=== PATIENT | female | born 1960 | race Caucasian/White ===

== ENCOUNTER 2024-10-30 15:47 | Outpatient (OUT) | payer MEDICARE, BC, SELFPAY ==
--- NOTE | 2024-10-30 16:15 | PM.WCHP ---
Wound Care H&P: HPI History of Present Illness Narrative: The patient is a 64-year-old female with history of type 2 diabetes, last A1c is 6.8. She presents for routine toenail care. She denies symptoms of claudication or foot pain. Exam Narrative: Exam Narrative: Dermatologic: Silvery plaque on an erythematous base noted on the medial left foot and right heel. No ulcerations noted. Toenails 1 through 10 are thickened, mycotic, and dystrophic. They are tender to touch. No evidence of paronychia. Webspaces are clean and dry. Skin is thin and shiny. Neurologic: Achilles deep tendon reflexes are absent bilaterally, vibratory sensation is intact on the left but absent on the right. Protective sensation intact at 5/5 areas tested with the monofilament on each foot. Vascular: 1/4 dorsal pedis pulses bilaterally, 1/4 PT pulses bilaterally. Digital and lower leg hair is absent bilaterally. Lower extremity edema is noted bilaterally. Skin is diffusely dry. 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 Flatfoot deformity noted on the right with less valgus positioning. No pain with palpation either foot. Assessment and Plan Assessment and Plan (1) Tinea unguium: (2) Type 2 diabetes mellitus with diabetic neuropathy, unspecified: (3) Disorder of nail due to another disorder: (4) Diminished pulses in lower extremity: Plan Toenails 1 through 10 were sharply debrided with nail nippers without incident. The patient noted pain relief post procedure. Follow-up in 3 months. Acute Procedures Nail Procedure Nail Procedure Time out: Yes Nail procedure: other (Debridement toenails 1 through 10) Number of affected nails: 10 Location (toes): left and right Procedure successful: Yes Patient tolerated procedure: well and no complications Additional comments: Nail nippers used to sharply debride toenails 1 through 10 Podiatry Nail Debridement Class B Findings Advanced trophic changes as evidenced by any three of the following: decreased hair growth, nail changes (thickening) and skin texture (thin or shiny) Class C Findings Claudication: No Temperature changes: No Edema: Yes Nail debridement paresthesia (abnormal spontaneous sensations in the feet): Yes Burning: No Qualifies If: Qualifiers If:: A patient qualifies for nail debridement if they have: 1 class A finding (Q7) 2 class B findings (Q8) OR 1 class B & 2 class C findings in addition to a primary condition (Q9)
== END 2024-10-30 15:48 | disposition home or self-care (01) ==
LOC: WC 15:47
PROVIDERS: Visit Provider Physician Assistant
DX: B35.1 Tinea unguium (principal); E11.40 Type 2 diabetes mellitus with diabetic neuropathy, unspecified; L60.8 Other nail disorders; R09.89 Other specified symptoms and signs involving the circulatory and respiratory systems
CPT/HCPCS: 11721

== ENCOUNTER 2025-01-29 09:51 | Outpatient (OUT) | payer MEDICARE, BC, SELFPAY ==
--- OUTSIDE RECORDS SUMMARY | 2024-02-11 09:00 | XMS_ITS ---
Author Organization [facility] [place] Address [address] [place] [address] Care Team Providers Care Recreation Leader Name Role Phone None, Unknown or Primary Care Provider Unavailab Ellie Murphy Unavailable [phone] REASON FOR VISIT routine nail care Vital Signs Temperature 97.1 degrees Fahrenheit 02/11/20 24 Heart Rate 74 /min 02/11/2024 Height 65 in 02/11/2024 Weight 190 lbs 02/11/2024 BMI 31.61 kg/m2 02/11/2024 Oximetry 99 % 02/11/2024 Encounters Encounter Location Date Provider Diagnosis [facility] (PODIATRY) [address] [place] [address] [place] [address] 02/11/2024 Ellie Treadwell Diet-controlled type 2 diabetes mellitus E11.9 ; Pain in left foot M79.672 and Pain in right foot M79.671 Assessments Encounter Date Diagnosis (ICD Code) Assessment Notes Treatment Notes Treatment Clinical Notes Section Notes 02/11/2024 Diet-controlled type 2 diabetes mellitus (ICD-10 - E11.9) 02/11/2024 Pain in left foot (ICD-10 - M79.672) 02/11/2024 Pain in right foot (ICD-10 - M79.671) Plan Of Treatment No Information Progress Notes * Neelam STEPHENSON:1960 ( 63 yo F)Acc No.[id number]:02/11/2024 Nurse Visit Patient: Traci CISNEROS Provider: Sean Treadwell PA-C DOB:1960 A ge:63 Y S ex:Female Date:02/11/2024 Address:[address] [place] [address], [place] [id number] Pcp:Unknown or None Check In:12:49 PM ESTCheck O ut:01:06 PM EST Subjective: * Chief Complaints: * R outine nail care * HPI: G eneral: Patient seen today for routine nail care. Patient reports sore nails to right foot and left great toe. Gentle care taken to trimming all nails today. No signs of ingrown nails noted. All nails trimmed and filed to patient's satsifaction. No concerns for provider today. Patient did report she would be interested in getting her left great toe and right toenails removed due to pain when that are thickened and long. She would like to wait until she retires in April. Next appointment to be scheduled with Tatyana Treadwell PA-C to get any testing needed ordered prior to procedure. 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 Assessment: * Assessment: 1. D iet-controlled type 2 diabetes mellitus - E11.9 (Primary) 2 . P ain in left foot - M79.672 3 . P ain in right foot - M79.671 Plan: * Treatment: * Procedure Codes: 9 9211 OFFICEOUTPT VISIT, EST * * Sign off status: Completed Visit Status: C HK (Check Out) true * Provider: Sean Treadwell PA-C Date: 02/11/2024 Generated for Libby villegas/Trae/eTransmitting on: 01/29/2025 09:53 AM EDT
--- OUTSIDE RECORDS SUMMARY | 2024-04-17 09:00 | XMS_ITS ---
Author Organization The [facility] in [place] Address [address] [place] [address] Care Team Providers Care Tree Trimming Line Technician Name Role Phone None, Unknown or Primary Care Provider Unavailab mikki Beltranen Ellie Unavailable [phone] Allergies Allergen (clinical drug ingredient) Drug/Non Drug Allergy documented on EMR Reaction Allergy Type Onset Date Status metronidazole Flagyl dizziness Drug Allergy Act lemuel naproxen Naproxen hives Drug Allergy Active azithromycin Zithromax anaphylaxis Drug Allergy Ac tive Substance with sulfonamide structure and antibacterial mechanism of action (substance) Sulfa Antibiotics Unknown Drug Allergy Active Penicillin Unknown Drug Allergy Active REASON FOR VISIT Diabetic foot exam/ nail care with monisha Medications Medication SIG (Take, Route, Frequency, Duration) Notes Start Date End Date Status Omeprazole Active metFORMIN HCl 500 MG 1 tablet with a lori l Orally Once a day Active Lotrisone Active Levothyroxine-Liothyronine Active Atenolol Active Social History Tobacco Use: Social History Observation Description Date Details (start date - stop date) Unknown if ever smoked NA - NA Tobacco Use/Smoking Question Answer Notes Patient is a unknown if ever smoked Vital Signs Temperature 97.6 degrees Fahrenheit 04/17/20 Heart Rate 76 /min 04/17/2024 Respiratory Rate 18 /min 04/17/2024 Height 65 in 04/17/2024 Weight 190 lbs 04/17/2024 BMI 31.61 kg/m2 04/17/2024 Oximetry 99 % 04/17/2024 Encounters Encounter Location Date Provider Diagnosis [facility] (PODIATRY) [address] [place] [address] [place] [address] 04/17/2024 Ellie [place] Diet-controlled type 2 diabetes mellitus E11.9 ; Pain in left foot M79.672 and Pain in right foot M79.671 Assessments Encounter Date Diagnosis (ICD Code) Assessment Notes Treatment Notes Treatment Clinical Notes Section Notes 04/17/2024 Diet-controlle d type 2 diabetes mellitus (ICD-10 - E11.9) The patient is a 63-year-old female with history of type 2 diabetes who presents for routine diabetic foot check and nail care. She has no complaints of pain in her feet. No ulcerative or preulcerative lesions are noted. Toenails 1 through 10 were sharply debrided with nail nippers without incident. She is interested in having the right first and second toenails permanently removed in the future. Closer to the date of the procedure, we we will check ABIs beforehand. Follow-up in 3 months or as needed. 04/17/2024 Pain in left foot (ICD-10 - M79.672) 04/17/2024 Pain in right foot (ICD-10 - M79.671) Plan Of Treatment Treatment Notes Assessment Notes Diet-controlled type 2 diabetes mellitus The patient is a 63-year-old female with history of type 2 diabetes who presents for routine diabetic foot check and nail care. She has no complaints of pain in her feet. No ulcerative or preulcerative lesions are noted. Toenails 1 through 10 were sharply debrided with nail nippers without incident. She is interested in having the right first and second toenails permanently removed in the future. Closer to the date of the procedure, we we will check ABIs beforehand. Follow-up in 3 months or as needed. Next Appt Details Follow Up: 3 Months, Reason: Progress Notes * Jessy STEPHENSONOB:1960 ( 63 yo F)Acc No.[id number]:04/17/2024 Follow Up Patient: Traci CISNEROS Provider: Sean Treadwell PA-C :1960 A ge:63 Y S ex:Female Date:04/17/2024 Address:[address] [place] [address], [id number] Pcp:Unknown or None Check In:12:59 PM ESTCheck O ut:01:16 PM EST Subjective: * Chief Complaints: * D iabetic foot exam/ nail care with monisha * HPI: G eneral: Here for Diabetic foot care and nail care. A1C= 6.0 (January 2024). All nails thick and long.1-2-3-4-5 right and left feet. Bilateral great toenails thicker than other nails. * ROS: G eneral/Constitutional: Chills d enies. F ever d enies. W eight gain�denies. W eight loss d enies. S kin: Skin Ulcers d enies. S kin lesion(s) d enies. � C ardiovascular: Difficulty breathing on exertion d enies. L eg cramps�denies. E julia d enies. C hest pain d enies. R espiratory: Difficulty breathing d enies. D yspnea d enies.�Cough d enies. G astrointestinal: Diarrhea d enies. N ausea d enies. V omiting�denies. M usculoskeletal: Bone/Joint Symptoms d enies. C cuauhtemoc Pain d enies.�Leg cramps d enies. N eurologic: Numbness d enies. T ingling d enies . G ait abnormality d enies. � H ematology: Anemia D enies. E asy bruising d enies. � A ll Other Systems: Review of Systems (ROS) S ee HPI for details,All others negative except those mentioned in HPI. 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 * Social History: T obacco Use: T obacco Use/Smoking P atient is a u nknown if ever smoked * Medications: T akingAtenolol Levothyroxine-Liothyronine Lotrisone metFORMIN HCl 500 MG Tablet 1 tablet with a meal Orally Once a day Omeprazole Medication List reviewed and reconciled with the patientTaking Atenolol Taking Levothyroxine-Liothyronine Taking Lotrisone Taking metFORMIN HCl 500 MG Tablet 1 tablet with a meal Orally Once a day Taking Omeprazole Medication List reviewed and reconciled with the patient * Allergies: N aproxen: hives - AllergyZithromax: anaphylaxis - AllergySulfa Antibiotics: AllergyPenicillin: AllergyFlagyl: dizziness - Allergyno[Allergies Verified] Objective: * Vitals: W t:190lbs, Ht: 65 in, Temp:97.6F, HR:76/min, RR:18/min, BMI:31.61Index, Pain scale:01-10, Oxygen sat %:99%, Ht-cm: 165.1 cm, Wt-k.18 kg. * Examination: P odiatry Examination: SKIN: s kin intact, n o sign of infection right hallux toenail is dystrophic and chronically ingrown. MUSCULOSKELETAL: I n stance, calcaneal valgus is noted,� Positive too many toes sign. Static exam demonstrates: No pain on palpation. Strength exam shows weakness on inversion. Subfibular impingement present. Forefoot varus and hypermobility of the 1st ray.� Ankle joint dorsiflexion with the knee extended is zero degrees. NEUROLOGICAL: L ight touch sensation is intact in allnerve distributions, N egative Tinel sign. VASCULAR: P alpable pedal pulses bilaterally, No swelling, No calf pain on squeeze. Assessment: * Assessment: 1. D iet-controlled type 2 diabetes mellitus - E11.9 (Primary) 2 . P ain in left foot - M79.672 3 . P ain in right foot - M79.671 Plan: * Treatment: * Procedure Codes: * Follow Up: 3 Months * * Sign off status: Completed Visit Status: C HK (Check Out) true * Provider: Sean Treadwell PA-C Date: 1 Generated for Libby villegas/Trae/Jadeitting on: 0 01/29/2025 09:54 AM EDT History and Physical Notes * HPI (History of Present Illness) Category Sub-Category Detail Notes Category Not es General Here for Diabet ic foot care and nail care. A1C= 6.0 (January 2024). All nails thick and long.1-2-3-4-5 right and left feet. Bilateral great toenails thicker than other nails Examination Category Sub-Category Detail Notes Category Not es Podiatry Examination SKIN: skin intact , no sign of infection right hallux toenail is dystrophic and chronically ingrown MUSCULOSKELETAL: In stance, calcaneal valgus is noted, Positive too many toes sign. Static exam demonstrates: No pain on palpation. Strength exam shows weakness on inversion. Subfibular impingement present. Forefoot varus and hypermobility of the 1st ray. Ankle joint dorsiflexion with the knee extended is zero degrees NEUROLOGICAL: Light touch sensation is intact in all nerve distributions, Negative Tinel sign VASCULAR: Palpable pedal pulse s bilaterally, No swelling, No calf pain on squeeze
--- OUTSIDE RECORDS SUMMARY | 2024-08-25 09:40 | XMS_ITS ---
Author Organization [facility] in [place] Address [address] [place] [address] Care Team Providers Care Admissions Specialist Name Role Phone None, Unknown or Primary Care Provider Unavailab Ellie Murphy Unavailable [phone] REASON FOR VISIT routine nail care Vital Signs Temperature 97.1 degrees Fahrenheit 08/25/19 25 Heart Rate 70 /min 08/25/2024 Height 65 in 08/25/2024 Oximetry 99 % 08/25/2024 Encounters Encounter Location Date Provider Diagnosis [facility] (PODIATRY) [address] [place] [address] [place] [address] 08/25/2024 Ellie Treadwell Diet-controlled type 2 diabetes mellitus E11.9 ; Abnormal peripheral pulse R09.89 ; Pain in left foot M79.672 and Pain in right foot M79.671 Assessments Encounter Date Diagnosis (ICD Code) Assessment Notes Treatment Notes Treatment Clinical Notes Section Notes 08/25/2024 Diet-controlled type 2 diabetes mellitus (ICD-10 - E11.9) 08/25/2024 Abnormal peripheral pulse (ICD-10 - R09.89) 08/25/2024 Pain in left foot (ICD-10 - M79.672) 08/25/2024 Pain in right foot (ICD-10 - M79.671) Plan Of Treatment Next Appt Details Follow Up: 3 Months, Reason: Progress Notes * Jessy STEPHENSONOB:1960 ( 64 yo F)Acc No.[id number]:08/25/2024 Nurse Visit Patient: Traci CISNEROS Provider: Sean Treadwell PA-C :1960 A ge:64 Y S ex:Female Date:08/25/2024 Address:[address] [place] [address], [id number] Pcp:Unknown or None Check In:02:13 PM ESTCheck O ut:02:13 PM EST Subjective: * Chief Complaints: * R outine nail care * HPI: G eneral: Here for Diabetic foot care and nail care. States she has been diagnosed with psorasis and it is noted on her left lower leg and foot today. She is using cream from her pneumatic tube repairer to treat but she is not sure what the name of it is. She requests all nails be trimmed as low as possible. Nails 1-10 are elongated, thickened today. Nail border to her right 3rd and 4th toes are sore but no signs of ingrown nails or infection. Nails trimmed back and pain relief achieved. All remaining nails trimmed and filed without incident. * Active Problem List M21.072 Acquired valgus [...] stic Procedure: * Medications: Objective: * Vitals: H t: 65 in, Temp:97.1F, HR:70/min, Pain scale:11-10, Oxygen sat %:99%, Ht-cm: 165.1 cm. Assessment: * Assessment: 1. D iet-controlled type 2 diabetes mellitus - E11.9 (Primary) 2 . A bnormal peripheral pulse - R09.89 3 . P ain in left foot - M79.672 4 .�Pain in right foot - M79.671 Plan: * Treatment: * Procedure Codes: 1 1721 DEBRIDE.NAILS;SIX OR MORE, Modifiers: Q8 * Follow Up: 3 Months * * Sign off status: Completed Visit Status: C HK (Check Out) true * Provider: Sean Treadwell PA-C Date: 0 08/25/2024 Generated for Libby villegas/Trae/eTransmitting on: 0 01/29/2025 09:54 AM EDT History and Physical Notes * HPI (History of Present Illness) Category Sub-Category Detail Notes Category Not es General Here for Diabet ic foot care and nail care. States she has been diagnosed with psorasis and it is noted on her left lower leg and foot today. She is using cream from her pneumatic tube repairer to treat but she is not sure what the name of it is. She requests all nails be trimmed as low as possible. Nails 1-10 are elongated, thickened today. Nail border to her right 3rd and 4th toes are sore but no signs of ingrown nails or infection. Nails trimmed back and pain relief achieved. All remaining nails trimmed and filed without incident.
--- OUTSIDE RECORDS SUMMARY | 2025-01-29 09:54 | XMS_ITS | Clinical Summary ---
Author Organization [facility] Address [address] [place] [address] Phone Care Team Providers Care Retail Merchandising Coordinator Name Role Phone Jignesh Trinidad DO Primary Care Provider [phone] Social History Tobacco Use Types Packs/Day Years Used Date Smoking Tobacco: Never Assessed Comments Unknown Sex and Gender Information Value Date Recorded Sex Assigned at Not on file Legal Sex Female 8:58 PM EST Gender Identity Not on file Sexual Orientation Not on file Plan of Treatment Not on file Care Teams Retail Merchandising Coordinator Relationship Specialty Start Date End Date Jignesh Trinidad DO PCP - General 10/02/14
--- OUTSIDE RECORDS SUMMARY | 2025-01-29 09:54 | XMS_ITS | Patient Health Record ---
Author Organization [facility] in [place] Address [address] [place] [address] Care Team Providers Care Pari Mutuel Ticket Seller Name Role Phone None, Unknown or Primary Care Provider Unavailab mikki Ellie Treadwell Unavailable [phone] Allergies Allergen (clinical drug ingredient) Drug/Non Drug Allergy documented on EMR Reaction Allergy Type Onset Date Status metronidazole Flagyl dizziness Drug Allergy Act lemuel naproxen Naproxen hives Drug Allergy Active azithromycin Zithromax anaphylaxis Drug Allergy Ac tive Substance with sulfonamide structure and antibacterial mechanism of action (substance) Sulfa Antibiotics Unknown Drug Allergy Active Penicillin Unknown Drug Allergy Active Reason For Referral No Information Medications Medication SIG (Take, Route, Frequency, Duration) [...] Patient is a unknown if ever smoked Problems Problem Type SNOMED Code ICD Code Onset Dates Problem Status W/U Status Risk Notes Problem 986048950389402 Diet-controlled type 2 diabetes mellitus (E11.9) Active confirmed Problem 7417787872040967 Posterior tibial tendon dysfunction (PTTD) of left lower extremity (M76.822) Active confirmed Problem 1078807279992891 Posterior tibial tendon dysfunction (PTTD) of right lower extremity (M76.821) Active confirmed Problem 120421344324533 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) Active confirmed Vital Signs Heart Rate 70 /min 08/25/2024 Temperature 97.1 degrees Fahrenheit 08/25/2024 Respiratory Rate 18 /min 04/17/2024 Oximetry 99 % 08/25/2024 Height 65 in 08/25/2024 Weight 190 lbs 04/17/2024 BMI 31.61 kg/m2 04/17/2024 Encounters Encounter Location Date Provider Diagnosis [facility] (PODIATRY) [address] [place] [address] [place] [address] 04/17/2024 Ellie Treadwell Diet-controlled type 2 diabetes mellitus E11.9 ; Pain in left foot M79.672 and Pain in right foot M79.671 [facility] (PODIATRY) [address] [place] [address] [place] [address] 08/25/2024 Ellie Treadwell Diet-controlled type 2 diabetes mellitus E11.9 ; Abnormal peripheral pulse R09.89 ; Pain in left foot M79.672 and Pain in right foot M79.671 [facility] (PODIATRY) [address] [place] [address] [place] [address] 02/11/2024 Ellie Treadwell Diet-controlled type 2 diabetes mellitus E11.9 ; Pain in left foot M79.672 and Pain in right foot M79.671 Assessments Encounter Date Diagnosis (ICD Code) Assessment Notes Treatment Notes Treatment Clinical Notes Section Notes 02/11/2024 Diet-controlled type 2 diabetes mellitus (ICD-10 - E11.9) 02/11/2024 Pain in left foot (ICD-10 - M79.672) 08/25/2024 Diet-controlled type 2 diabetes mellitus (ICD-10 - E11.9) 08/25/2024 Abnormal peripheral pulse (ICD-10 - R09.89) 04/17/2024 Diet-controlled type 2 diabetes mellitus (ICD-10 - [...] Pain in right foot (ICD-10 - M79.671) 08/25/2024 Pain in left foot (ICD-10 - M79.672) 02/11/2024 Pain in right foot (ICD-10 - M79.671) 08/25/2024 Pain in right foot (ICD-10 - M79.671) Plan Of Treatment No Information Insurance Providers Payer Name Payer Address Payer Phone Subscriber Number Group Number Insured Name Patient Relationship to Insured Coverage Start Date Coverage End Date [employer] ACCESS PPO PLUS LOCAL PLAN [address] [place] [address] [id number] Traci Weiner Self - patient is the insured 5 [place] [address] [id number] Zhanna Weinery Self - patient is the insured 5 BCBS OUT OF STATE [address] [place] [address] [id number] Zhanna Weinery Self - patient is the insured Medical (General) History Medical History History ICD Code Posterior tibial tendon dysfunction, lef t M76.822 Arthritis of ankle, right M19.071 Valgus deformity of foot, right M21.071 Disorder of ligament of left foot M24.27 5 Acquired valgus deformity of left ankle M21.072 Contracture, right ankle M24.571 Diabetes mellitus E11.9 Surgical History Surgery Date(Month/Year) wont disclose Hospitalization History Reason Date(Month/Year) wont disclose
--- NOTE | 2025-01-29 10:41 | P.WCHP_ITS ---
Wound Care H&P: HPI History of Present Illness Narrative: Traci is a 64-year-old female with history of type 2 diabetes who presents for routine nail care. Her last hemoglobin A1c was 5.8. She has no complaints in regards to her feet at this time. Exam Narrative: Exam Narrative: Dermatologic: No ulcerations noted. Toenails 1 through 10 are thickened, mycotic, and dystrophic. They are tender to touch. No evidence of paronychia. Webspaces are clean and dry. Skin is thin, shiny, and atrophic. Neurologic: Achilles deep tendon reflexes are absent bilaterally, vibratory sensation is intact on the left but absent on the right. Protective sensation intact at 5/5 areas tested with the monofilament on each foot. Vascular: 1/4 dorsal pedis pulses bilaterally, 1/4 PT pulses bilaterally. Di gital and lower leg hair is absent bilaterally. Lower extremity edema is noted bilaterally. Skin is diffusely dry. 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 Flatfoot deformity noted on the right with less valgus positioning. No pain with palpation either foot. Assessment and Plan Assessment and Plan (1) Diminished pulses in lower extremity: (2) Disorder of nail due to another disorder: (3) Type 2 diabetes mellitus with diabetic neuropathy, unspecified: (4) Tinea unguium: Plan Routine nail care performed. Follow-up in 3 months. Acute Procedures Podiatry Nail Debridement Class B Findings Advanced trophic changes as evidenced by any three of the following: decreased hair growth, nail changes (thickening) and skin texture (thin or shiny) Class C Findings Claudication: No Temperature changes: No Edema: Yes Nail debridement paresthesia (abnormal spontaneous sensations in the feet): No Burning: No Qualifies If: Qualifiers If:: A patient qualifies for nail debridement if they have: 1 class A finding (Q7) 2 class B findings (Q8) OR 1 class B & 2 class C findings in addition to a primary condition (Q9) Nail Procedure Nail Procedure Time out: Yes Nail procedure: other (Toenail debridement) Number of affected nails: 10 Location (toes): left and right Procedure successful: Yes Patient tolerated procedure: well Additional comments: Toenails 1 through 10 were sharply debrided with nail nippers. There was a hangnail removed from the left medial nail fold that bled postprocedure. Band- Aid was applied.
== END 2025-01-29 09:52 | disposition home or self-care (01) ==
LOC: WC 09:52
PROVIDERS: Visit Provider Physician Assistant
DX: I70.203 Unspecified atherosclerosis of native arteries of extremities, bilateral legs (principal); L60.8 Other nail disorders; E11.40 Type 2 diabetes mellitus with diabetic neuropathy, unspecified; B35.1 Tinea unguium
CPT/HCPCS: 11721

== ENCOUNTER 2025-05-21 12:58 | Outpatient (OUT) | payer MEDICARE, SELFPAY ==
--- OUTSIDE RECORDS SUMMARY | 2025-05-18 10:30 | XMS_ITS | Encounter Summary ---
Author Organization [facility] Address [address] [place] [id number] Care Team Providers Care [employer] Name Role Phone Dar Vasquez DO Primary Care Provider + Source Comments In the event this information is protected by the Federal Confidentiality of Alcohol and Drug AbusePatient Records regulations: The Federal rules restrict any use of the information to criminally investigate or prosecute any alcohol or drug abuse patient.[facility] Reason for Visit * ReasonCommentsCrohns Encounter Details DateTypeDepartmentCare Team (Latest Contact Info)Yjkcrsjevya79/03/2025 10:30 AM [facility] [address] [id number] Essence Vera, michael Crohn's disease of small intestine with complication (HCC) (Primary Dx) Social History Tobacco UseTypesPacks/DayYears UsedDateSmoking Tobacco: NeverSmokeless Tobacco: NeverAlcohol UseStandard Drinks/WeekCommentsYes0 (1 standard drink = 0.6 oz pure alcohol)ocassionallyPHQ-2AnswerDate RecordedPHQ-2 cuolh239rea Deprivation IndexAnswerDate RecordedNational Score (1-100), lower number is lower ceer422309/05/2024State Score (1-10), lower number is lower nwqg32309/05/2024 Data from: https://www.neighborhoodatlas.[facility].edu/. Last address used for yshdlwscl[address] [place] [address] CommentsNoSex and Gender InformationValueDate RecordedSex Assigned at GaodpTqjtbx47/09/2022 7:42 PM EST Legal CuuFpgume48/02/2012 9:13 AM ESTGender LnybrnalBjtztu26/09/2022 7:42 PM EST Sexual OrientationNot on filedocumented as of this encounter Functional Status * Are you deaf or do you have serious difficulty hearing?AnswerDate of KnqkcckgtkFhznlbJm22/13/2022 4:20 PM Sayra Zuniga RN * Are you blind or do you have serious difficulty seeing, even when wearing glasses?AnswerDate of HwtzokxszlNqsxufFb49/13/2022 4:20 PM Sayra Zuniga RN * Do you have serious difficulty walking or climbing stairs?AnswerDate of ArwrmxmwibJewxkdPc46/13/2022 4:20 PM Sayra Zuniga RN * Do you have difficulty dressing or bathing?AnswerDate of AssessmentAuthorNo 12/26/2021 4:20 PM Sayra Zuniga RN * Because of a physical, mental, or emotional condition, do you have difficulty doing errands alone such as visiting a doctor's office or shopping?AnswerDate of HattlqypjuJrzskaVf04/13/2022 4:20 PM Sayra Zuniga RN documented as of this encounter Mental Status * Because of a physical, mental, or emotional condition, do you have serious difficulty concentrating, remembering, or making decisions?AnswerEntry Date SrjrqeBs90/13/2022 4:20 PM Sayra Zuniga RN documented in this encounter Progress Notes * Essence Vera, [facility] - 05/18/2025 10:30 AM EST IBD Medication Consult [facility] [place] Patient consents to pharmacy consult agreement. The initial consult was conducted virtually with the patient where the consult agreement was explained. The patient may decline or cancel the agreement at any time. After consideration, the patient consented to the pharmacy consult agreement and agreed to allow medications be collaboratively managed by a pharmacist. Patient Name: Traci Weiner IBD Provider: Dr. Paiz Diagnosis: UC with Crohn's-like disease of pouch Insurance: [employer], [employer] Reason for consult: efficacy, safety, coordination, health maintenance review, and reconciliation Met with Traci today. She reports: - Joint pain (most pronounced in knees) since starting Skyrizi for which she takes acetaminophen 1-2 doses of 500mg ~3x/week. After first dose of Skyrizi, I could hardly walk . But I think my body is getting used to it . I would like to continue due to joint pain already improving and helping for psoriasis. Notes psoriasis has significantly improved since starting Skyrizi.. - In terms of GI symptoms, reports while seeing improvement in symptoms since starting Skyrizi, continues to have increased symptoms on off weeks of cipro (alternates 2-weeks on, 2-weeks off). Juststarted current 2-week course yesterday. - Stopped Otezla after appt with Tomasa ~2-weeks ago and psoriasis has remained well-controlled. Missed recent Derm appt so has not yet had f/u, but r/s for 06/2025 - Delayed infusion due 05/08/2025 until after change of insurance to Medicare Advantage took effecton 05/16/2025. Is r/s for 05/22/2025. Med rec completed today, see below for details on discrepancies. X = taking as prescribed/listed. Medication Directions Comments apremilast (OTEZLA) 30 mg tablet Apremilast (Otezla) 30 mg tablet Active 30 MG PO .once daily June 09, 2024 1:00am Stopped ~05/01 atenolol (TENORMIN) 25 mg tablet Take 1 tablet by mouth once daily. X blood sugar diagnostic (Access ClosureUCH VERIO TEST STRIPS) test strip Use as instructed three times daily ciprofloxacin HCl (CIPRO) 500 mg tablet TAKE 1 TABLET BY MOUTH TWO TIMES A DAY FOR TWO WEEKS THEN TWO WEEK OFF Restarted 05/17 for current 2-week course diphenoxylate-atropine (LOMOTIL) 2.5-0.025 mg per tablet TAKE 1 TABLET BY MOUTH 3 OR 4 TIMES DAILY NEEDED Takes 6/day ergocalciferol 50,000 unit capsule (VITAMIN D2, DRISDOL) TAKE 1 CAPSULE BY MOUTH ONE TIME A WEEK. X - takes on Mondays ferrous sulfate 325 mg (65 mg iron) tablet Take 325 mg by mouth five times a week. Takes daily FLUoxetine (PROZAC) 20 mg capsule Take 20 mg by mouth once daily. X folic acid 1 mg tablet TAKE 1 TABLET BY MOUTH EVERY DAY X hydrOXYchloroQUINE (PLAQUENIL) 200 mg tablet Take 200 mg by mouth. Only as needed for oral lichenplanus; has needed a couple doses lately insulin lispro (HUMALOG KWIKPEN INSULIN) 100 unit/mL Inject 0-10 units three times daily following the sliding scale: If Blood Glucose (mg/dL) is <110 Give 0 units 111-150 Give 0 units 151-200 Give 2 unit 201-250 Give 4 units 251-300 Give 6 units 301-350 Give 8 units 351-400 Give 10 units >400 give 10units and notify provider. Checks BG throughout the day; only takes insulin as needed--hardly ever needs Insulin [place], Disposable, (BD ULTRA-FINE MIN PEN NEEDLE) 32 gauge x 5/32 1 Each three times daily. Lactobacillus acidophilus (PROBIOTIC ORAL) Take by mouth. X lancets (ONETOUCH DELICA PLUS LANCET) 33 gauge 1 Each three times daily. levothyroxine (SYNTHROID) 150 mcg tablet Take 1 tablet by mouth once daily. X magnesium oxide (MAG-OX) 400 mg (241.3 mg magnesium) tablet Take 1 tablet by mouth every afternoon. X mecobalamin, vitamin B12, 1,000 mcg chew Take by mouth once daily. X metFORMIN ER (GLUCOPHAGE XR) 500 mg 24 hr tablet TAKE 1 TABLET BY MOUTH EVERY DAY IN THE EVENING WITH MEAL X Omeprazole 40 mg capsule Take 40 mg by mouth once daily. X - reports GERD if doesn't take rosuvastatin (CRESTOR) 5 mg tablet Take 1 tablet by mouth once daily. X spironolactone (ALDACTONE) 25 mg tablet Take 1 tablet by mouth every afternoon. X Syringe with Needle, Disp, 3 mL 25 gauge x 1 1 Syringe as directed. tapinarof (VTAMA) 1 % cream Tapinarof (Vtama) 1 % cream Active APPLIC TOPICAL November 03, 2024 12:00am Was for psoriasis, hasn't needed to use being skyrizi better controlling Current Pouch Symptoms Average number of bowel movements in 24 hour period: increased to 8; just started antibiotic again yesterday--symptoms often worsen when off weeks from cipro Stool Frequency: at baseline since pouch surgery, but a little more watery during off cipro weeks Rectal Bleeding: None Fecal Urgency: None Abdominal Cramps: sometimes, but that is normal Fever (>100 F) in last 24 hours: No Number of nocturnal bowel movements: the other day, but hasn't otherwise (had chocolate dessert before bed) Incontinence or Fecal Accidents in last week: No Anti-Diarrheal use: lomotil 6/day Fecal Seepage: yes sometimes, mostly at night Use of Pads/Adult Diapers: Yes SOCIAL HISTORY Tobacco use: no EtOH: No PERTINENT PMH FOR BIOLOGICS/SMALL MOLECULES Personal history of: VTE: No Cardiac: No Renal dysfunction: No Hepatic dysfunction: No Autoimmune/Demyelinating disease (MS, GBS): Yes, psoriasis, RA, lichen sclerosus Malignancy: Yes, 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, now s/p surgery a few years ago PAST MEDICAL HISTORY Diagnosis Date Arthritis Chronic pain of left knee 12/09/2021 Diabetes mellitus (HCC) History of transfusion HTN (hypertension) Hypothyroidism Lichen sclerosus Rheumatoid arthritis (HCC) UC (ulcerative colitis) (HCC) PAST SURGICAL HISTORY Procedure Laterality Date ABDOMINAL SURGERY HX CHG DELIVERY PAST SURGICAL HISTORY OF 1994 2 stage j-pouch PAST SURGICAL HISTORY OF abdominal hernia x2 PICC LINE INSERT/CONSULT 12/23/2021 Current Outpatient Medications Medication Sig Dispense Refill ciprofloxacin HCl (CIPRO) 500 mg tablet TAKE 1 TABLET BY MOUTH TWO TIMES A DAY FOR TWO WEEKS THEN TWO WEEK OFF 84 tablet 0 diphenoxylate-atropine (LOMOTIL) 2.5-0.025 mg per tablet TAKE 1 TABLET BY MOUTH 3 OR 4 TIMES DAILY NEEDED 120 tablet 5 hydrOXYchloroQUINE (PLAQUENIL) 200 mg tablet Take 200 mg by mouth. tapinarof (VTAMA) 1 % cream Tapinarof (Vtama) 1 % cream Active APPLIC TOPICAL November 03, 2024 12:00am ergocalciferol 50,000 unit capsule (VITAMIN D2, DRISDOL) TAKE 1 CAPSULE BY MOUTH ONE TIME A WEEK. 12 capsule 1 apremilast (OTEZLA) 30 mg tablet Apremilast (Otezla) 30 mg tablet Active 30 MG PO .once daily June 09, 2024 1:00am rosuvastatin (CRESTOR) 5 mg tablet Take 1 tablet by mouth once daily. folic acid 1 mg tablet TAKE 1 TABLET BY MOUTH EVERY DAY 90 tablet 3 atenolol (TENORMIN) 25 mg tablet Take 1 tablet by mouth once daily. 30 tablet 0 spironolactone (ALDACTONE) 25 mg tablet Take 1 tablet by mouth every afternoon. magnesium oxide (MAG-OX) 400 mg (241.3 mg magnesium) tablet Take 1 tablet by mouth every afternoon. ferrous sulfate 325 mg (65 mg iron) tablet Take 325 mg by mouth five times a week. mecobalamin, vitamin B12, 1,000 mcg chew Take by mouth once daily. Syringe with Needle, Disp, 3 mL 25 gauge x 1 1 Syringe as directed. 16 Each 0 metFORMIN ER (GLUCOPHAGE XR) 500 mg 24 hr tablet TAKE 1 TABLET BY MOUTH EVERY DAY IN THE EVENING WITH MEAL insulin lispro (HUMALOG KWIKPEN INSULIN) 100 unit/mL Inject 0-10 units three times daily following the sliding scale: If Blood Glucose (mg/dL) is <110 Give 0 units 111-150 Give 0 units 151-200 Give 2 unit 201-250 Give 4 units 251-300 Give 6 units 301-350 Give 8 units 351-400 Give 10 units >400 give 10units and notify provider. 5 Pen 2 Insulin [place], Disposable, (BD ULTRA-FINE MIN PEN NEEDLE) 32 gauge x 5/32 1 Each three times daily. 100 Each 2 blood sugar diagnostic (ONETOUCH VERIO TEST STRIPS) test strip Use as instructed three times daily 100 Strip 2 lancets (Paquin Healthcare CompaniesTOUCH DELICA PLUS LANCET) 33 gauge 1 Each three times daily. 100 Each 2 Lactobacillus acidophilus (PROBIOTIC ORAL) Take by mouth. levothyroxine (SYNTHROID) 150 mcg tablet Take 1 tablet by mouth once daily. 30 tablet 0 Omeprazole 40 mg capsule Take 40 mg by mouth once daily. FLUoxetine (PROZAC) 20 mg capsule Take 20 mg by mouth once daily. No current facility-administered medications for this visit. ALLERGIES Allergen Reactions Azithromycin Unknown Metronidazole Itching Itching and redness Naproxen Penicillins Sulfa (Sulfonamide * Unknown Vancomycin Rash FAMILY HISTORY FAMILY HISTORY Problem Relation Age of Onset Anesthesia Problems No Family History PERTINENT VITALS AND LABS Weight/BMI: Wt: 96.2 kg (212 lb 1.3 oz) BMI: 35.29 kg/(m^2) TB: Lab Results Component Value Date TBGNIL 0.03 03/30/2021 TBGINT 03/30/2021 No evidence of current or previous infection with Mycobacterium tuberculosis. TBG1AG 0.00 03/30/2021 TBG2AG 0.01 03/30/2021 TBGRES Negative 03/30/2021 TBMITN >10 03/30/2021 TPMT: Lab Results Component Value Date TPMTACT 23.3 (L) 10/14/2020 Calprotectin stool/inflammation: Lab Results Component Value Date CALPTN 332.9 (H) 08/11/2022 CALPROTECTIN, FECAL QUANTITATIVE Date Value Ref Range Status 10/11/2023 188 (H) <50 ug/g Final CRP Date Value Ref Range Status 09/18/2024 0.6 <0.9 mg/dL Final CBC: WBC (k/uL) Date Value 03/06/2025 7.69 Hemoglobin (g/dL) Date Value 03/06/2025 12.9 Hematocrit (%) Date Value 03/06/2025 39.0 MCV (fL) Date Value 03/06/2025 91.3 Platelet Count (k/uL) Date Value 03/06/2025 459 (H) Lymphocytes % (%) Date Value 03/06/2025 26.1 RENAL/HEPATIC: BUN (mg/dL) Date Value 03/06/2025 10 Creatinine (mg/dL) Date Value 03/06/2025 0.69 Albumin (g/dL) Date Value 03/06/2025 4.1 Bilirubin, Total (mg/dL) Date Value 03/06/2025 0.3 AST (U/L) Date Value 03/06/2025 18 ALT (U/L) Date Value 03/06/2025 13 VITAMIN B12 & D25 Vitamin B12 Date Value Ref Range Status 03/06/2025 806 232 - 1,245 pg/mL Final Vitamin D 25 Hydroxy (ng/mL) Date Value 09/18/2024 30.8 (L) LIPID PANEL: No results found for: CHOL , HDL , LDL , TG MEDICATION LEVELS Adalimumab: No results found for: ADNEAB , EERADA , ADAACT Infliximab: No results found for: IFXA , IFXT , EERIFX No components found for: INFLIXIMAB TOTAL DRUG LEVEL , INFLIXIMAB TOTAL ANTI- DRUG ANTIBODY LEVEL PULL No results found for: IFXTDM Thiopurine metabolites: No results found for: 6TG No results found for: 6MMP HEALTH MAINTENANCE Type Date Received Up-to-date Additional notes/comments Dosing Pneumococcal Pneumonia PCV13: 11/2021 PPSV23: 01/2022 Yes PCV20 after 2026 One time dose of Gkdewsh28 or Iwyiuam59 Hepatitis A No No results found for: HEPAIGG Candidate for Twinrix if insurance covers Twinrix (combination hep A and B vaccine): three doses given at months 0, 1, and 6 - recommend to check to see if covered by insurance OR Havrix or Vaqta: Two doses given at months 0 and 6 Note: checking your lab to see if you have immunity Hepatitis B No Hep B Core Ab, Total (no units) Date Value 10/14/2020 Negative No results found for: HBSAG Hep B Surface Ab, Qual (no units) Date Value 10/14/2020 Negative Candidate for Twinrix if insurance covers - otherwise, obtain hepatitis B vaccine solo Twinrix (combination hep A and B vaccine): three doses given at months 0, 1, and 6 - recommend to check to see if covered by insurance OR Heplisav-B: Two doses given at months 0 and 1 OR Engerix-B, Recombivax-HB: Three doses administered at months 0, 1, and 6 Note: checking your lab to see if you have immunity Influenza Typically receives annually, most recent 05/2024; plans to get this week No Candidate for Counseled to avoid live intranasal formulation Obtain yearly If 65 years or older or an anti-TNF therapy such as infliximab or adalimumab, recommend high dose influenza. AVOID nasal formulation as it is a live vaccine COVID-19 Primary series: -10/2020 Most recent booster: 05/2024; no longer planning to get COVID but after discussion today will consider. No Candidate forupdated COVID vaccine Obtain yearly Zoster (RZV) 04/2020 Yes Varicella titer: Lab Results Component Value Date VZVG 3,709.0 10/14/2020 Shingrix: two doses given at months 0 and 2 Note: check with your pharmacy to see if this is covered by insurance Tetanus, diphtheria, pertussis (Tdap or Td) No Candidate for One dose Tdap then Td booster every 10 years Respiratory syncytial virus (RSV) No Candidate for One time dose of Arexvy or Abrysvo or mResvia HPV Females < 45 years old and males < 26 years old; 2 dose series if <15 years old NA Gardasil: three doses given at months 0, 2, and 6 Note: check with your pharmacy and insurance to see if this is covered *The above vaccines are inactivated (or non-live). Live vaccines should be avoided while on IBD biologic or small molecule treatments. Up-to-date with PAP smear (annually or Q3 years if HPV negative): Stopped PAP because too painful with lichen planus. Reports getting an annual MRI Up-to-date with skin check: Yes- Dr. Alethea Vickers @ [facility] [phone] Up-to-date with DEXA scan (low BMI, post-menopausal, steroids >3 months, FHx of osteoporosis, smoking: baseline and repeat Q5 years if initial screen is normal): NA ASSESSMENT/PLAN Traci Weiner is a 64 year old White female with Ulcerative colitis [51.90], s/p IPAA creation in 1994 (2 stage). She started to experience partial small bowel obstruction in 2020. 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 Underwent pouchoscopy 2021 which revealed pre-pouch, pouch inlet, and pouch inflammation demonstrating now Crohn's like disease of pouch. Was started on Cipro and responded very well. Continued to be on vedolizumab [id number] and cycled between 2 weeks on/off Cipro. 02/2025 changed to risankizumab to cover both psoriasis and IBD (in lieu of vedolizumab for IBD + aprelimast for psoriasis); initially incidentally continued dual treatment aprelimast x2mos,but has since discontinued. Experienced severe joint pain with risankizumab infusions. Referred to PharmD. Today, is now agreeable to continuing risankizumab in setting of joint pain improving as well as notable results for psoriasis and IBD. Currently still antibiotic dependent (cycles cipro on/off m0kqtac). Medication Management - Completed 2/3 doses of risankizumab 600 mg IV at week 0, 4, 8; final dose scheduled this Sunday (2-weeks late due to changing insurance). Will then transition to risankizumab 360 mg SQ every 8 weeks- reviewed basics regarding administration today, but will review in detail when due to transition. - Continue lomotil 6x/day as needed - Continue cycled ciprofloxacin 500 mg BID x2-weeks, then 2-weeks off; defer to Dr. Paiz whether may consider attempting to taper off once established on maintenance dosing of risankizumab - Updated med list in [facility] BIOLOGIC/SMALL MOLECULE DOSING Induction dose of risankizumab: 03/13/2025, 04/10/2025, 05/22/2025 (2-weeks late due to change in insurance Scheduled to complete infusions at: [facility] Transition from induction to maintenance: 07/17/2025 Specialty pharmacy: TBD Health Maintenance - Recommend the following vaccines: hepatitis A/B combo (Twinrix), Annual flu vaccine, Annual COVIDvaccine, Td, and RSV- recommendations sent via [employer]. - Recommend the following health maintenance appts: none -- currently up to date Next PharmD visit: Future Appointments Date Time Provider Department Center 05/22/2025 10:00 AM CHAIR Mickie AYON Counts Include [facility] 05/25/2025 1:00 PM Melida Garrison RPh [facility] 07/17/2025 9:30 AM [facility]/30/[facility]25 11:20 AM [facility] 08/21/2025 8:15 AM LAB RIZWANA LONDONO Counts Include [facility] 08/28/2025 1:40 PM Ramon Everett MD HEMASA Counts Include [facility] Traci Weiner endorses understanding to above. Denies other questions and concerns and is aware to contact us in future if needed. Essence Vera, Pharm.D., BCACP IBD Clinical Pharmacist Interventions made: medication reconciliation, medication coordination, health maintenance need assessment, and medication management Time spent (mins): 30 documented in this encounter Plan of Treatment DateTypeDepartmentCare Team (Latest Contact Info)Ulgtkkmzogp39/07/2025 10:00 AM [facility] Hematology/Oncology [address] [place] [address] [place] [address] RUZPEQC6607/17/2025 9:30 AM [facility] [address] [place] [address] Essence Vera [facility]07/30/2025 11:20 [facility] [address] [address] Ashu Paiz MD [address] [address] Follow Up08/21/2025 8:15 AM ESTOffice Visit [facility] Laboratory [address] [place] [address] [place] [address] lab08/28/2025 1:40 PM ESTVisit (SP) Office Hematology/Oncology [address] [place] [address] [place] [address] Ramon Everett MD [address] [place] [address] [place] [address] 24 week follow up, labs 1 week priordocumented as of this encounter Visit Diagnoses Diagnosis Crohn's disease of small intestine with complication (HCC)- [facility] enteritis of small intestine documented in this encounter Care Teams Team MemberRelationshipSpecialtyStart DateEnd Date Dar Vasquez DO [address] [place] [address] PCP - GeneralFamily Medicine02/16/22documented as of this encounter
--- OUTSIDE RECORDS SUMMARY | 2025-05-21 13:02 | XMS_ITS | Encounter Summary ---
Author Organization [facility] Address [address] [place] [address] Care Team Providers Care Director Of Testing Name Role Phone Dar Vasquez DO Primary Care Provider + Source Comments In the event this information is protected by the Federal Confidentiality of Alcohol and Drug AbusePatient Records regulations: The Federal rules restrict any use of the information to criminally investigate or prosecute any alcohol or drug abuse patient.[facility] Encounter Details DateTypeDepartmentCare Team (Latest Contact Info)Brjwlpbecdq25/05/2025[facility] [address] [place] [address] Diana Astudillo RPh Social History Tobacco UseTypesPacks/DayYears UsedDateSmoking Tobacco: NeverSmokeless Tobacco: NeverAlcohol UseStandard Drinks/WeekCommentsYes0 (1 standard drink = 0.6 oz pure alcohol)ocassionallyPHQ-2AnswerDate RecordedPHQ-2 ehwdt1834Area Deprivation IndexAnswerDate RecordedNational Score (1-100), lower number is lower gquc603809/05/2024State Score (1-10), lower number is lower uxzb12809/05/2024 Data from: https://www.neighborhoodatlas.medicine.[facility].edu/. Last address used for nfbgmfyjtfo[address] [place] [address] CommentsNoSex and Gender InformationValueDate RecordedSex Assigned at KldfsNppfxs95/09/2022 7:42 PM EST Legal KcjUcoaeu02/02/2012 9:13 AM ESTGender PztmcqnlEstqri71/09/2022 7:42 PM EST Sexual OrientationNot on filedocumented as of this encounter Functional Status * Are you deaf or do you have serious difficulty hearing?AnswerDate of GdiejusbxmHveatvQr89/13/2022 4:20 PM Sayra Zuniga RN * Are you blind or do you have serious difficulty seeing, even when wearing glasses?AnswerDate of EwlgdunarbJgyevoXc01/13/2022 4:20 PM Sayra Zuniga RN * Do you have serious difficulty walking or climbing stairs?AnswerDate of GxazmfpzssGoxvidGg24/13/2022 4:20 PM Sayra Zuniga RN * Do you have difficulty dressing or bathing?AnswerDate of AssessmentAuthorNo 12/26/2021 4:20 PM Sayra Zuniga RN * Because of a physical, mental, or emotional condition, do you have difficulty doing errands alone such as visiting a doctor's office or shopping?AnswerDate of QashqbajijRbucvuNx94/13/2022 4:20 PM Sayra Zuniga RN documented as of this encounter Mental Status * Because of a physical, mental, or emotional condition, do you have serious difficulty concentrating, remembering, or making decisions?AnswerEntry Date QrezfiCd07/13/2022 4:20 PM Sayra Znuiga RN documented in this encounter Plan of Treatment DateTypeDepartmentCare Team (Latest Contact Info)Cphpzhnpyoa62/07/2025 10:00 AM [facility] Hematology/Oncology [address] [place] [address] [place] [address] QBSUPLU1807/17/2025 9:30 [facility] [address] [address] Essence Vera, [facility] cavrwghx53/15/2026 11:20 AM ESTDistance [facility] Gastroenterology [address] [address] Ashu Paiz MD [address] [address] Follow Up08/21/2025 8:15 AM ESTOffice Visit [facility] [address] [place] [address] lab08/28/2025 1:40 PM ESTVisit (SP) Office Hematology/Oncology [address] [place] [address] Ramon Everett MD [address] [place] [address] 24 week follow up, labs 1 week priordocumented as of this encounter Visit Diagnoses Not on filedocumented in this encounter Care Teams Team MemberRelationshipSpecialtyStart DateEnd Date Dar Vasquez DO [address] [facility].; [place] [address] PCP - GeneralFamily Medicine02/16/22documented as of this encounter
--- OUTSIDE RECORDS SUMMARY | 2025-05-21 13:02 | XMS_ITS | Encounter Summary ---
Author Organization [facility] Address [address] [place] [address] Care Team Providers Care Landman Name Role Phone Dar Vasquez DO Primary Care Provider + Source Comments In the event this information is protected by the Federal Confidentiality of Alcohol and Drug AbusePatient Records regulations: The Federal rules restrict any use of the information to criminally investigate or prosecute any alcohol or drug abuse patient.[facility] Encounter Details DateTypeDepartmentCare Team (Latest Contact Info)Ingzxudpcvd90/03/2025 Patient Msg Gastroenterology [address] [id number] Essence Vera RPh Vaccine Recommendations Social History Tobacco UseTypesPacks/DayYears UsedDateSmoking Tobacco: NeverSmokeless Tobacco: NeverAlcohol UseStandard Drinks/WeekCommentsYes0 (1 standard drink = 0.6 oz pure alcohol)ocassionallyPHQ-2AnswerDate RecordedPHQ-2 bxhuo7014Area Deprivation IndexAnswerDate RecordedNational Score (1-100), lower number is lower upyh358609/05/2024State Score (1-10), lower number is lower mnch14509/05/2024 Data from: https://www.neighborhoodatlas.medicine.[facility]/. Last address used for mycrlagbxpl[address] [place] [address] 9842209/05/2024CommentsNoSex and Gender InformationValueDate RecordedSex Assigned at IpwzcUhyipd49/09/2022 7:42 PM EST Legal IhwSgxeap16/02/2012 9:13 AM ESTGender QfjlupvaDviseg36/09/2022 7:42 PM EST Sexual OrientationNot on filedocumented as of this encounter Functional Status * Are you deaf or do you have serious difficulty hearing?AnswerDate of SkuoefcolbZdkfbxZt74/13/2022 4:20 PM Sayra Zuniga RN * Are you blind or do you have serious difficulty seeing, even when wearing glasses?AnswerDate of XmplwaqytjAayiswEi32/13/2022 4:20 PM Syara Zuniga RN * Do you have serious difficulty walking or climbing stairs?AnswerDate of TmqwouasulLyotayYd57/13/2022 4:20 PM Sayra Zuniga RN * Do you have difficulty dressing or bathing?AnswerDate of AssessmentAuthorNo 12/26/2021 4:20 PM Sayra Zuniga RN * Because of a physical, mental, or emotional condition, do you have difficulty doing errands alone such as visiting a doctor's office or shopping?AnswerDate of JhnklspnukRcjvtcRv73/13/2022 4:20 PM Sayra Zuniga RN documented as of this encounter Mental Status * Because of a physical, mental, or emotional condition, do you have serious difficulty concentrating, remembering, or making decisions?AnswerEntry Date GomlzcRg35/13/2022 4:20 PM Sayra Zuniga RN documented in this encounter Plan of Treatment DateTypeDepartmentCare Team (Latest Contact Info)Zmuemgpbsmk12/07/2025 10:00 AM [facility] Hematology/Oncology [address] [place] [address] [place] [address] KYTUPHX0507/17/2025 9:30 [facility] [address] [place] [address] ChuyEssence [facility] Skyrizi eynahjgq29/15/2026 11:20 AM ESTDistance [facility] Gastroenterology [address] [address] Ashu Paiz MD [address] [address] Follow Up08/21/2025 8:15 AM ESTOffice Visit [facility] [address] [place] [address] lab08/28/2025 1:40 PM ESTVisit (SP) Office Hematology/Oncology [address] [place] [address] Ramon Everett MD [address] [place] [address] 24 week follow up, labs 1 week priordocumented as of this encounter Visit Diagnoses Not on filedocumented in this encounter Care Teams Team MemberRelationshipSpecialtyStart DateEnd Date Dar Vasquez DO [address] [facility].; [place] [address] PCP - GeneralFamily Medicine02/16/22documented as of this encounter
--- OUTSIDE RECORDS SUMMARY | 2025-05-21 13:02 | XMS_ITS | Encounter Summary ---
Author Organization [facility] Address [address] [place] [address] Care Team Providers Care Casing Trimmer Name Role Phone Dar Vasquez DO Primary Care Provider + Source Comments In the event this information is protected by the Federal Confidentiality of Alcohol and Drug AbusePatient Records regulations: The Federal rules restrict any use of the information to criminally investigate or prosecute any alcohol or drug abuse patient.[facility] Encounter Details DateTypeDepartmentCare Team (Latest Contact Info)Trvtgqgljmp44/27/2025 Patient Msg Medical Records [address] [place] [address] Provider, [facility]cf Important Notice for Our Medicare Patients Regarding Appointment Scheduling Social History Tobacco UseTypesPacks/DayYears UsedDateSmoking Tobacco: NeverSmokeless Tobacco: NeverAlcohol UseStandard Drinks/WeekCommentsYes0 (1 standard drink = 0.6 oz pure alcohol)ocassionallyPHQ-2AnswerDate RecordedPHQ-2 gblit5014Area Deprivation IndexAnswerDate RecordedNational Score (1-100), lower number is lower olxn167809/05/2024State Score (1-10), lower number is lower eqio59209/05/2024 Data from: https://www.neighborhoodatlas.medicine.[facility]/. Last address used for sdidgeymyor[address] [place] [address] 3708409/05/2024CommentsNoSex and Gender InformationValueDate RecordedSex Assigned at LxxqyKcncqj65/09/2022 7:42 PM EST Legal RfqFergvs57/02/2012 9:13 AM ESTGender NhuiialhJywyvc66/09/2022 7:42 PM EST Sexual OrientationNot on filedocumented as of this encounter Functional Status * Are you deaf or do you have serious difficulty hearing?AnswerDate of XhsrybqybuSaozmlDd51/13/2022 4:20 PM Sayra Zuniga RN * Are you blind or do you have serious difficulty seeing, even when wearing glasses?AnswerDate of YiwwgavjziVexwavYw39/13/2022 4:20 PM Sayra Zuniga RN * Do you have serious difficulty walking or climbing stairs?AnswerDate of RhzfgwfitrNvtlitCx92/13/2022 4:20 PM Sayra Zuniga RN * Do you have difficulty dressing or bathing?AnswerDate of AssessmentAuthorNo 12/26/2021 4:20 PM Sayra Zuniga RN * Because of a physical, mental, or emotional condition, do you have difficulty doing errands alone such as visiting a doctor's office or shopping?AnswerDate of PgoalgqbtsJqyhbqBb13/13/2022 4:20 PM Sayra Zuniga RN documented as of this encounter Mental Status * Because of a physical, mental, or emotional condition, do you have serious difficulty concentrating, remembering, or making decisions?AnswerEntry Date EqiedtRl54/13/2022 4:20 PM Sayra Zuniga RN documented in this encounter Plan of Treatment DateTypeDepartmentCare Team (Latest Contact Info)Ukzbeiopoii75/07/2025 10:00 AM [facility] Hematology/Oncology [address] [place] [address] [place] [address] YFFEGUE6907/17/2025 9:30 AM [facility] [address] [address] Essence [facility] mtuayrtm35/15/2026 11:20 AM [facility] [address] [address] Ashu Paiz MD [address] [address] Follow Up08/21/2025 8:15 AM ESTOffice Visit [facility] [address] [place] [address] lab08/28/2025 1:40 PM ESTVisit (SP) Office Hematology/Oncology [address] [place] [address] Ramon Everett MD [address] [place] [address] 24 week follow up, labs 1 week priordocumented as of this encounter Visit Diagnoses Not on filedocumented in this encounter Care Teams Team MemberRelationshipSpecialtyStart DateEnd Date Dar Vasquez DO [address] [facility].; [place] [address] PCP - GeneralFamily Medicine02/16/22documented as of this encounter
--- OUTSIDE RECORDS SUMMARY | 2025-05-21 13:02 | XMS_ITS | Encounter Summary ---
Author Organization [facility] Address [facility] [place] [address] Care Team Providers Care Rag Room Supervisor Name Role Phone Dar Vasquez DO Primary Care Provider + Source Comments In the event this information is protected by the Federal Confidentiality of Alcohol and Drug AbusePatient Records regulations: The Federal rules restrict any use of the information to criminally investigate or prosecute any alcohol or drug abuse patient.[facility] Reason for Visit * ReasonCommentsMedication Authorization Encounter Details DateTypeDepartmentCare Team (Latest Contact Info)Epgqkumbsev80/27/2025Telephone Gastroenterology [address] [address] Ashu Paiz MD [address] [address] Medication Authorization Social History Tobacco UseTypesPacks/DayYears UsedDateSmoking Tobacco: NeverSmokeless Tobacco: NeverAlcohol UseStandard Drinks/WeekCommentsYes0 (1 standard drink = 0.6 oz pure alcohol)ocassionallyPHQ-2AnswerDate RecordedPHQ-2 peezc978rea Deprivation IndexAnswerDate RecordedNational Score (1-100), lower number is lower ajgw026109/05/2024State Score (1-10), lower number is lower grvy23709/05/2024 Data from: https://www.neighborhoodatlas.[facility]/. Last address used for rftdiysnhqa[address] CommentsNoSex and Gender InformationValueDate RecordedSex Assigned at DobzeBrfqah91/09/2022 7:42 PM EST Legal VanIpkugy26/02/2012 9:13 AM ESTGender JsqrrwmiKxyabh49/09/2022 7:42 PM EST Sexual OrientationNot on filedocumented as of this encounter Functional Status * Are you deaf or do you have serious difficulty hearing?AnswerDate of UmftwjjkrpFgfaxhOi50/13/2022 4:20 PM Sayra Zuniga RN * Are you blind or do you have serious difficulty seeing, even when wearing glasses?AnswerDate of JgwarfezqjTgxbcsZt14/13/2022 4:20 PM Sayra Zuniga RN * Do you have serious difficulty walking or climbing stairs?AnswerDate of EnwkrkuognAvhrskMj47/13/2022 4:20 PM Sayra Zuniga RN * Do you have difficulty dressing or bathing?AnswerDate of AssessmentAuthorNo 12/26/2021 4:20 PM Sayra Zuniga RN * Because of a physical, mental, or emotional condition, do you have difficulty doing errands alone such as visiting a doctor's office or shopping?AnswerDate of ElgaasryulCvztkiNk13/13/2022 4:20 PM Sayra Zuniga RN documented as of this encounter Mental Status * Because of a physical, mental, or emotional condition, do you have serious difficulty concentrating, remembering, or making decisions?AnswerEntry Date GbhcynWb18/13/2022 4:20 PM Sayra Zuniga RN documented in this encounter Miscellaneous Notes * Telephone Encounter - Fide Bolivar RN - 05/12/2025 2:53 PM EDT Pt also sent a [employer] message with same information. See for further details. Closing this encounter. Fide Bolivar RN May 12, 2025 2:53 PM * Telephone Encounter - Lisa Mcnally - 05/11/2025 3:00 PM EDT Patient called stating she has new insurance beginning May.16 and needs a PA for her Skyrizi medication that she is due for on May.22. Call transferred to appointment center to update insurance information. Lisa Kilgore Land Surveyor Manager documented in this encounter Plan of Treatment DateTypeDepartmentCare Team (Latest Contact Info)Ywogzqwotbh40/07/2025 10:00 AM [facility] Hematology/Oncology [address] [place] [address] [place] [address] QCEMPDF7507/17/2025 9:30 AM ESTDistance [facility] Gastroenterology [address] [place], [place] [address] Essence Vera [facility]07/30/2025 11:20 AM [facility]Dis[facility] [address] [place], [place] [address] Ashu Paiz MD [address] [place] [address] Follow Up08/21/2025 8:[address] [facility] Laboratory [address] [place] [address] [place] [address] lab08/28/2025 1:40 PM ESTVisit (SP) Office Hematology/Oncology [address] [place] [address] [place] [address] Ramon Everett MD [address] [place] [address] [place] [address] 24 week follow up, labs 1 week priordocumented as of this encounter Visit Diagnoses Not on filedocumented in this encounter Care Teams Team MemberRelationshipSpecialtyStart DateEnd Date Dar Vasquez DO [address] [facility]; [place] [address] PCP - GeneralFamily Medicine02/16/22documented as of this encounter
--- OUTSIDE RECORDS SUMMARY | 2025-05-21 13:02 | XMS_ITS | Encounter Summary ---
Author Organization [facility] Address [facility] [place] [address] Care Team Providers Care Yeast Culture Developer Name Role Phone Dar Vasquez DO Primary Care Provider + Source Comments In the event this information is protected by the Federal Confidentiality of Alcohol and Drug AbusePatient Records regulations: The Federal rules restrict any use of the information to criminally investigate or prosecute any alcohol or drug abuse patient.[facility] Encounter Details DateTypeDepartmentCare Team (Latest Contact Info)Qlbfhqgzwxt18/27/2025 Get Medical Advice Gastroenterology [address] [address] Ashu Paiz MD [address] [address] Additional new insurance as of May 16 2025 Social History Tobacco UseTypesPacks/DayYears UsedDateSmoking Tobacco: NeverSmokeless Tobacco: NeverAlcohol UseStandard Drinks/WeekCommentsYes0 (1 standard drink = 0.6 oz pure alcohol)ocassionallyPHQ-2AnswerDate RecordedPHQ-2 kmhwg116rea Deprivation IndexAnswerDate RecordedNational Score (1-100), lower number is lower ewqk179609/05/2024State Score (1-10), lower number is lower xekm86909/05/2024 Data from: https://www.neighborhoodatlas.[facility]/. Last address used for ahnysxhcocd[address] [place] [address] CommentsNoSex and Gender InformationValueDate RecordedSex Assigned at FdcwuRdyuqc96/09/2022 7:42 PM EST Legal RcdItysht23/02/2012 9:13 AM ESTGender VnppyxsyWueijk93/09/2022 7:42 PM EST Sexual OrientationNot on filedocumented as of this encounter Functional Status * Are you deaf or do you have serious difficulty hearing?AnswerDate of OmgjalstawQpwebpRz06/13/2022 4:20 PM Sayra Zuniga RN * Are you blind or do you have serious difficulty seeing, even when wearing glasses?AnswerDate of LjfgecuhnnJikvtkPj16/13/2022 4:20 PM Sayra Zuniga RN * Do you have serious difficulty walking or climbing stairs?AnswerDate of KqxjgnhdfkKpeubfPo87/13/2022 4:20 PM Sayra Zuniga RN * Do you have difficulty dressing or bathing?AnswerDate of AssessmentAuthorNo 12/26/2021 4:20 PM Sayra Zuniga RN * Because of a physical, mental, or emotional condition, do you have difficulty doing errands alone such as visiting a doctor's office or shopping?AnswerDate of HbvmaeoannKvspraLd74/13/2022 4:20 PM Sayra Zuniga RN documented as of this encounter Mental Status * Because of a physical, mental, or emotional condition, do you have serious difficulty concentrating, remembering, or making decisions?AnswerEntry Date DbymjxPf50/13/2022 4:20 PM Sayra Zuniga RN documented in this encounter Miscellaneous Notes * Telephone Encounter - Fide Bolivar RN - 05/12/2025 1:02 PM EDT Message sent to pharm auth team notifying of insurance change effective 05/16/25. Fide Bolivar RN May 12, 2025 1:03 PM documented in this encounter Plan of Treatment DateTypeDepartmentCare Team (Latest Contact Info)Nsfqnnyjbem96/07/2025 10:00 AM [facility] Hematology/Oncology [address] [place] [address] [place] [address] DITMMMP5507/17/2025 9:30 AM [facility] Gastroenterology [address] [place], [place] [address] [facility]/30/2025 11:20 AM [facility] Gastroenterology [address] [place] [address] Ashu Paiz MD [address] [address] Follow Up08/21/2025 8:15 AM ESTOffice Visit [facility] Laboratory [address] [place] [address] [place] [address] lab08/28/2025 1:40 PM ESTVisit (SP) Office Hematology/Oncology [address] [place] [address] [place] [address] Ramon Everett MD [address] [place] [address] [place] [address] 24 week follow up, labs 1 week priordocumented as of this encounter Visit Diagnoses Not on filedocumented in this encounter Care Teams Team MemberRelationshipSpecialtyStart DateEnd Date Dar Vasquez DO [address] [facility].; [place] [address] PCP - GeneralFamily Medicine02/16/22documented as of this encounter
--- OUTSIDE RECORDS SUMMARY | 2025-05-21 13:03 | XMS_ITS | Patient Health Record ---
Author Organization [facility] [place] Address [address] [place] [address] Care Team Providers Care Job Putter Up And Ticket Preparer Name Role Phone None, Unknown or Primary Care Provider Unavailab mikki Ellie Treadwell Unavailable [phone] Allergies Allergen (clinical drug ingredient) Drug/Non Drug Allergy documented on EMR Reaction Allergy Type Onset Date Status metronidazole Flagyl dizziness Drug Allergy ActivenaproxenNaproxenhivesDrug AllergyActiveazithromycinZithromaxanaphylaxis Drug AllergyActiveSubstance with sulfonamide structure and antibacterial mechanism of action (substance)Sulfa AntibioticsUnknownDrug AllergyActive PenicillinUnknownDrug AllergyActive Reason For Referral No Information Medications Medication SIG (Take, Route, Frequency, Duration) Notes Start Date End Date Status Omeprazole ActivemetFORMIN HCl 500 MG1 tablet with a meal Orally Once a dayActiveLotrisone ActiveLevothyroxine-LiothyronineActiveAtenololActive Social History Tobacco Use: Social History Observation Description Date Details (start date - stop date) Unknown if ever smoked NA - NA Tobacco Use/Smoking Question Answer Notes Patient is a unknown if ever smoked Problems Problem Type SNOMED Code ICD Code Onset Dates Problem Status W/U Status Risk Notes Problem Type II diabetes britta litus without complication (904671145) Diet-controlled type 2 diabetes mellitus (E11.9) ActiveconfirmedProblemTibialis tendinitis (37048734)Posterior tibial tendon dysfunction (PTTD) of left lower extremity (M76.822)ActiveconfirmedProblem Tibialis tendinitis (41434642)Posterior tibial tendon dysfunction (PTTD) of right lower extremity (M76.821)ActiveconfirmedProblemAcquired valgus deformity of left ankle (923527065327028)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) Activeconfirmed Vital Signs Heart Rate 70 /min 08/25/2024 Dzsncdzsfme51.1 degrees Ygifciyues42/10/4020Cesssgdt58 %08/25/20248414Radeao84 in 08/25/2024 Encounters Encounter Location Date Provider Diagnosis [facility] (PODIATRY) [address] [place] [address] [place] [address] 08/25/2024 Ellie Treadwell Diet-controlled type 2 diabetes mellitus E11.9 ; Abnormal peripheral pulse R09.89 ; Pain in left foot M79.672 and Pain in right foot M79.671 Assessments Encounter Date Diagnosis (ICD Code) Assessment Notes Treatment Notes Treatment Clinical Notes Section Notes 08/25/2024 Diet-controlled type 2 diabetes mellitus (ICD-10 - E11.9) 08/25/2024bnormal peripheral pulse (ICD-10 - R09.89)08/25/2024Pain in left foot (ICD-10 - M79.672)08/25/2024Pain in right foot (ICD-10 - M79.671) Plan Of Treatment No Information Insurance Providers Payer Name Payer Address Payer Phone Subscriber Number Group Number Insured Name Patient Relationship to Insured Coverage Start Date Coverage End Date [employer] PPO PLUS LOCAL PLAN [address] [place] [address] [id number] Traci Weiner Self - patient is the insured 2024[place] [phone] [id number], JoySelf - patient is the [id number] 2024[facility] OUT OF STATE [address] [place] [id number], JoySelf - patient is the insured Medical (General) [...]
--- OUTSIDE RECORDS SUMMARY | 2025-05-21 13:03 | XMS_ITS | Clinical Summary ---
Author Organization [facility] Address [address] [place] [address] Phone Care Team Providers Care Director Online Marketing Name Role Phone Jignesh Trinidad DO Primary Care Provider [phone] Social History Tobacco UseTypesPacks/DayYears UsedDateSmoking Tobacco: Never Assessed CommentsUnknownSex and Gender InformationValueDate RecordedSex Assigned at Not on fileLegal LabKorpmz32/25/2022 8:58 PM ESTGender IdentityNot on fileSexual OrientationNot on file Plan of Treatment Not on file Care Teams Team MemberRelationshipSpecialtyStart DateEnd Date Jignesh Trinidad DO PCP - General10/02/14
--- OUTSIDE RECORDS SUMMARY | 2025-05-21 13:03 | XMS_ITS | Clinical Summary ---
Author Organization [facility] Address [address] [place] [address] Care Team Providers Care Commodity Lead Name Role Phone Unavailable Primary Care Provider Unavailabl e Social History Tobacco UseTypesPacks/DayYears UsedDateSmoking Tobacco: Never Assessed CommentsUnknownSex and Gender InformationValueDate RecordedSex Assigned at Not on fileLegal GhlQgkkcb43/15/2023 6:51 PM EDTGender IdentityNot on fileSexual OrientationNot on file Last Filed Vital Signs Vital SignReadingTime TakenCommentsBlood Dqwkaeqz696/6907 12:00 PM EDT Pulse--Temperature--Respiratory Rate--Oxygen Saturation--Inhaled Oxygen Concentration--Poivzh725 kg (225 lb)11/15/2021 12:00 PM AOFVtlldo788.1 cm (5' 5 )11/15/2021 12:00 PM EDTBody Mass Index37.44011/15/2021 12:00 PM EDT Plan of Treatment Not on file Insurance
--- OUTSIDE RECORDS SUMMARY | 2025-05-21 13:03 | XMS_ITS | Clinical Summary ---
Author Organization [facility] Address [address] [place] [address] Care Team Providers Care Licensed Real Estate Broker Name Role Phone Dar Vasquez DO Primary Care Provider + Allergies Active AllergyReactionsCriticalityNoted DateCommentsAzithromycinUnknown 11/23/20127141EnoyxqmzrknttVpyunfl97/28/2003 Itching and redness Jdeqdcvi98/28/6774Jqgurkygtfp94/28/2003Sulfa (Sulfonamide Antibiotics)Unknown 03/12/20033941XdzyuchshyYcmb97/21/2021 Medications MedicationSigDispense QuantityRefillsLast FilledStart DateEnd DateStatus FLUoxetine (PROZAC) 20 mg capsule Take 20 mg by mouth once daily.Active Omeprazole 40 mg capsule Take 40 mg by mouth once daily.Active levothyroxine (SYNTHROID) 150 mcg tablet Take 1 tablet by mouth once daily. 30 tablet 09/23/2020ctive Lactobacillus acidophilus (PROBIOTIC ORAL) Take by mouth. Active insulin lispro (HUMALOG KWIKPEN INSULIN) 100 unit/mL Inject 0-10 units three times daily following the sliding scale: If Blood Glucose (mg/dL) is <110 Give 0 units 111-150 Give 0 units 151-200 Give 2 unit 201-250 Give 4 units 251-300 Give 6 units 301-350 Give 8 units 351-400 Give 10 units >400 give 10units and notify provider. 5 Pen ctive Insulin [place], Disposable, (BD ULTRA-FINE MIN PEN NEEDLE) 32 gauge x 5/32 1 Each three times daily. 100 Each ctive blood sugar diagnostic (TheralogixUCH VERIO TEST STRIPS) test strip Use as instructed three times daily 100 Strip ctive lancets (Tacit SoftwareTOUCH DELICA PLUS LANCET) 33 gauge 1 Each three times daily. 100 Each ctive metFORMIN ER (GLUCOPHAGE XR) 500 mg 24 hr tablet TAKE 1 TABLET BY MOUTH EVERY DAY IN THE EVENING WITH MEAL11/23/2022ctive Syringe with Needle, Disp, 3 mL 25 gauge x 1 1 Syringe as directed. 16 Each 01/09/2023ctive ferrous sulfate 325 mg (65 mg iron) tablet Take 325 mg by mouth five times a week.Active mecobalamin, vitamin B12, 1,000 mcg chew Take by mouth once daily.Active spironolactone (ALDACTONE) 25 mg tablet Take 1 tablet by mouth every afternoon.07/23/2023ctive magnesium oxide (MAG-OX) 400 mg (241.3 mg magnesium) tablet Take 1 tablet by mouth every afternoon.06/19/2023ctive atenolol (TENORMIN) 25 mg tablet Take 1 tablet by mouth once daily. 30 tablet 10/27/2023ctive folic acid 1 mg tablet TAKE 1 TABLET BY MOUTH EVERY DAY 90 tablet tive rosuvastatin (CRESTOR) 5 mg tablet Take 1 tablet by mouth once daily.12/09/2024tive ergocalciferol 50,000 unit capsule (VITAMIN D2, DRISDOL) TAKE 1 CAPSULE BY MOUTH ONE TIME A WEEK. 12 capsule tive diphenoxylate-atropine (LOMOTIL) 2.5-0.025 mg per tablet Indications:Indeterminate colitisTAKE 1 TABLET BY MOUTH 3 OR 4 TIMES DAILY NEEDED 120 tablet 5003/13/5129426Active hydrOXYchloroQUINE (PLAQUENIL) 200 mg tablet Take 200 mg by mouth.09/05/2023ctive tapinarof (VTAMA) 1 % cream Tapinarof (Vtama) 1 % cream Active APPLIC TOPICAL November 03, 2024 12:00am 11/03/2024tive ciprofloxacin HCl (CIPRO) 500 mg tablet Indications:Crohn's disease of small intestine with complication (HCC)TAKE 1 TABLET BY MOUTH TWO TIMES A DAY FOR TWO WEEKS THEN TWO WEEK OFF 84 tablet 5Active ciprofloxacin HCl (CIPRO) 500 mg tablet Indications:Crohn's disease of small intestine with complication (HCC)Take 1 tablet by mouth two times a day. Two weeks; Two week off 84 tablet Discontinued apremilast (OTEZLA) 30 mg tablet Apremilast (Otezla) 30 mg tablet Active 30 MG PO .once daily June 09, 2024 1:00am108/09/20230716/09/2024Discontinued Active Problems ProblemNoted DateDiagnosed NsvtIyexckbul60/06/2025Vitamin B12 deficient megaloblastic hhdjmr9511/08/2023Iron deficiency anemia secondary to inadequate dietary iron qciajy5611/08/2023Small bowel /11/2024rohn's disease of small intestine with znskheenvfcl64/12/2023Obesity, Class I, BMI 30-34.9 12/15/2022Thrombocytosis after dgqitmkompk41/04/2022VT /07/2022 Assessment & Plan (12/26/2021 7:10 AM EDT): Assessment: PPX during post operative period PLAN: -Lovenox 40mg SQ daily -BL SCD -OOB and ambulating minimum TID Assessment & Plan (12/23/2021 6:27 AM EDT): Assessment: PPX during post operative period PLAN: -SQH TID -BL SCD -OOB and ambulating minimum TID Assessment & Plan (12/22/2021 6:29 AM EDT): Assessment: PPX during post operative period PLAN: -SQH TID -BL SCD -OOB and ambulating minimum TID Assessment & Plan (12/21/2021 6:28 AM EDT): Assessment: PPX during post operative period PLAN: -SQH TID -BL SCD -OOB and ambulating minimum TID Assessment & Plan (12/20/2021 6:33 AM EDT): Assessment: PPX during post operative period PLAN: -SQH BID -BL SCD -OOB and ambulating minimum TID Post-operative pain12/20/2021 Assessment & Plan (12/26/2021 7:12 AM EDT): Assessment: s/p laparoscopic converted to open distal pancreatectomy, cholecystectomy, ventral hernia repair with bridging vicryl mesh 12/19/2021 PLAN: -Tylenol 1g PO q6hr -Dilaudid 0.2mg IV q3hr PRN -Oxycodone 5-10mg PO q4hr PRN Assessment & Plan (12/23/2021 6:28 AM EDT): Assessment: s/p laparoscopic converted to open distal pancreatectomy, cholecystectomy, ventral hernia repair with bridging vicryl mesh 12/19/2021 PLAN: -Dilaudid PRODUCT ARCHITECT -Tylenol 1g PO q6hr Assessment & Plan (12/22/2021 6:29 AM EDT): Assessment: s/p laparoscopic converted to open distal pancreatectomy, cholecystectomy, ventral hernia repair with bridging vicryl mesh 12/19/2021 PLAN: -Dilaudid PRODUCT ARCHITECT -Tylenol 1g PO q6hr Assessment & Plan (12/21/2021 6:28 AM EDT): Assessment: s/p laparoscopic converted to open distal pancreatectomy, cholecystectomy, ventral hernia repair with bridging vicryl mesh 12/19/2021 PLAN: -Dilaudid PRODUCT ARCHITECT -Tylenol 1g PO q6hr Assessment & Plan (12/20/2021 6:34 AM EDT): Assessment: s/p laparoscopic converted to open distal pancreatectomy, cholecystectomy, ventral hernia repair with bridging vicryl mesh 12/19/2021 PLAN: -Dilaudid PRODUCT ARCHITECT -Tylenol 1g PO q6hr Jquifafzvd85/07/2022 Assessment & Plan (12/26/2021 7:09 AM EDT): Assessment: Controlled on home prozac PLAN: -Prozac 20mg PO daily Assessment & Plan (12/23/2021 6:27 AM EDT): Assessment: Controlled on home prozac PLAN: -Prozac 20mg PO daily Assessment & Plan (12/22/2021 6:29 AM EDT): Assessment: Controlled on home prozac PLAN: -Prozac 20mg PO daily Assessment & Plan (12/21/2021 6:28 AM EDT): Assessment: Controlled on home prozac PLAN: -Prozac 20mg PO daily Assessment & Plan (12/20/2021 6:35 AM EDT): Assessment: Controlled on home prozac PLAN: -Prozac 20mg PO daily Kmulvcjvssxvof98/07/2022 Assessment & Plan (12/26/2021 7:10 AM EDT): Assessment: Controlled on home levothyroxine PLAN: -Levothyroxine 175mcg PO daily Assessment & Plan (12/23/2021 6:27 AM EDT): Assessment: Controlled on home levothyroxine PLAN: -Levothyroxine 175mcg PO daily Assessment & Plan (12/22/2021 6:29 AM EDT): Assessment: Controlled on home levothyroxine PLAN: -Levothyroxine 175mcg PO daily Assessment & Plan (12/21/2021 6:28 AM EDT): Assessment: Controlled on home levothyroxine PLAN: -Levothyroxine 175mcg PO daily Assessment & Plan (12/20/2021 6:35 AM EDT): Assessment: Controlled on home levothyroxine PLAN: -Levothyroxine 175mcg PO daily Pancreatic cyst2Chronic pain of left knee12/09/2021 Assessment & Plan (12/09/2021 11:45 AM EDT): - Has been on NSAID for pain relief. - aware to stop NSAID and use Tylenol 7 days prior to sx. She is agreeable. -uses a wheelchair for prolonged ambulation due to right knee pain. BMI 38.0-38.9,adult12/08/2021 Assessment & Plan (12/26/2021 7:09 AM EDT): Assessment: Admission BMI 39.9 kg/m2 PLAN: -Defer management during post operative period Assessment & Plan (12/23/2021 6:27 AM EDT): Assessment: Admission BMI 39.9 kg/m2 PLAN: -Defer management during post operative period Assessment & Plan (12/22/2021 6:29 AM EDT): Assessment: Admission BMI 39.9 kg/m2 PLAN: -Defer management during post operative period Assessment & Plan (12/21/2021 6:27 AM EDT): Assessment: Admission BMI 39.9 kg/m2 PLAN: -Defer management during post operative period Assessment & Plan (12/20/2021 6:36 AM EDT): Assessment: Admission BMI 39.9 kg/m2 PLAN: -Defer management during post operative period Assessment & Plan (12/08/2021 1:55 PM EDT): -BMI is... Uejsizlecbpx01/26/2022 Assessment & Plan (12/26/2021 7:10 AM EDT): Assessment: Controlled on home HCTZ and atenolol PLAN: -Hold HCTZ -Atenolol 25mg PO daily -Monitor vitals Assessment & Plan (12/23/2021 6:27 AM EDT): Assessment: Controlled on home HCTZ and atenolol PLAN: -Hold HCTZ -Atenolol 25mg PO daily -Monitor vitals Assessment & Plan (12/22/2021 6:29 AM EDT): Assessment: Controlled on home HCTZ and atenolol PLAN: -Hold HCTZ -Atenolol 25mg PO daily -Monitor vitals Assessment & Plan (12/21/2021 6:28 AM EDT): Assessment: Controlled on home HCTZ and atenolol PLAN: -Hold HCTZ -Atenolol 25mg PO daily -Monitor vitals Assessment & Plan (12/20/2021 6:32 AM EDT): Assessment: Controlled on home HCTZ and atenolol PLAN: -Hold HCTZ -Atenolol 25mg PO daily -Monitor vitals Assessment & Plan (12/09/2021 11:43 AM EDT): - Blood pressure in PACC is 112/54 -CMP and EKG ordered by surgeon. -Blood pressure controlled hydrochlorothiazide and atenolol Gastroesophageal reflux disease without ngwijrxqney20/26/2022 Assessment & Plan (12/26/2021 7:10 AM EDT): Assessment: Controlled on home PPI PLAN: -Protonix 40mg PO daily Assessment & Plan (12/23/2021 6:27 AM EDT): Assessment: Controlled on home PPI PLAN: -Protonix 40mg PO daily Assessment & Plan (12/22/2021 6:29 AM EDT): Assessment: Controlled on home PPI PLAN: -Protonix 40mg PO daily Assessment & Plan (12/21/2021 6:28 AM EDT): Assessment: Controlled on home PPI PLAN: -Protonix 40mg PO daily Assessment & Plan (12/20/2021 6:32 AM EDT): Assessment: Controlled on home PPI PLAN: -Protonix 40mg PO daily Assessment & Plan (12/08/2021 2:35 PM EDT): - Symptoms controlled with omeprazole Pain in left foot1Pain in left ankle and joints of left foot11/01/2020 Pain in right foot1Pain in right ankle and joints of right foot 10/26/2020BO (small bowel obstruction)09/18/2020 Resolved Problems ProblemNoted DateDiagnosed DateResolved DateIPMN (intraductal papillary mucinous neoplasm) Assessment & Plan (12/26/2021 7:11 AM EDT): Assessment: 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 open distal pancreatectomy, cholecystectomy, ventral hernia repair with bridging vicryl mesh 12/19/2021 PLAN: -GIS diet -Protonix 40mg PO daily -SSI AC/HS -Accuchecks AC/HS -ISAI drain to bulb suction -F/U pathology Assessment & Plan (12/23/2021 6:28 AM EDT): Assessment: 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 open distal pancreatectomy, cholecystectomy, ventral hernia repair with bridging vicryl mesh 12/19/2021 PLAN: -NPO, mIVF -NGT to LIWS -Protonix 40mg PO daily -Colace 100mg PO BID -SSI q6hr -Accuchecks q6hr -ISAI drains to bulb suction -Trend ISAI amylase -F/U pathology Assessment & Plan (12/22/2021 6:30 AM EDT): Assessment: 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 open distal pancreatectomy, cholecystectomy, ventral hernia repair with bridging vicryl mesh 12/19/2021 PLAN: -NPO, mIVF -NGT to LIWS -Protonix 40mg PO daily -Colace 100mg PO BID -SSI q6hr -Accuchecks q6hr -ISAI drains to bulb suction -Trend ISAI amylase -F/U pathology Assessment & Plan (12/21/2021 6:28 AM EDT): Assessment: 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 open distal pancreatectomy, cholecystectomy, ventral hernia repair with bridging vicryl mesh 12/19/2021 PLAN: -NPO, mIVF -NGT to LIWS -Protonix 40mg PO daily -SSI q6hr -Accuchecks q6hr -ISAI drains to bulb suction -Trend ISAI amylase -F/U pathology Assessment & Plan (12/20/2021 6:30 AM EDT): Assessment: 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 open distal pancreatectomy, cholecystectomy, ventral hernia repair with bridging vicryl mesh 12/19/2021 PLAN: -NPO, mIVF -NGT to LIWS -Protonix 40mg PO daily -SSI q6hr -Accuchecks q6hr -ISAI drains to bulb suction -F/U ISAI amylase -F/U serum amylase -F/U pathology Assessment & Plan (12/08/2021 1:55 PM EDT): -scheduled forXI ROBOTIC LAPAROSCOPIC PANCREATECTOMY DISTAL SUBTOTAL W/W/O SPLENECTOMY W/O PANCREATICOJEJUNOSTOMY, XI ROBOTIC ??DIAGNOSTIC LAPAROSCOPY ABDOMEN, PERITONEUM AND OMENTUM, XI ROBOTIC LAPAROSCOPIC SPLENECTOMY ON 12/19/2021 Encounters DateTypeDepartmentCare BkfmPmmtcgamgjn80/05/2025[facility] HB-3 [address] [place] [address] Diana Astudillo RPh 05/18/2025 10:30 AM [facility] Gastroenterology [address] [address] Essence Vera RPh Crohn's disease of small intestine with complication (HCC) (Primary Dx) 05/18/2025 Patient Msg Gastroenterology [address] [address] Essence Vera RPh Vaccine Qnwcgnohvvwepwv11/27/2025 Get Medical Advice Gastroenterology [address] [address] Ashu Paiz MD Additional new insurance as of May 16[facility] [address] [place] [phone] Ashu Paiz MD Medication Zhppknncgnkqt08/27/2025 Patient [facility] Medical Records [address] [place] [address] Provider, Ccf Important Notice for Our Medicare Patients Regarding Appointment Scheduling 04/29/2025Telephone Gastroenterology [address] [address] Ashu Paiz MD Medication Zkdkrod9104/20/2025 8:30 AM [facility] Gastroenterology [address] [place] [phone] Tomasa Wakefield, DEVELOPMENT ENGINEER.MANAGER OF CORPORATE COMMUNICATIONS Crohn's disease of small intestine with complication (HCC) (Primary Dx) 04/20/2025 Patient [facility] [address] [place] [address] Provider, Ccf Appointment to epcrsgzs32/06/2025[facility] [address] [place] [phone] Tomasa Wakefield, DEVELOPMENT ENGINEER.MANAGER OF CORPORATE COMMUNICATIONS Tdnsrmbutvj51/04/2025Refill Gastroenterology [address] [place], [place] [phone] Tomasa Wakefield, DEVELOPMENT ENGINEER.MANAGER OF CORPORATE COMMUNICATIONS Refill Bsbtajj8904/16/20251129Ookwgq64/29/2025Telephone Gastroenterology [address] [place] [address] Ashu Paiz MD Medication Fytztvi7504/10/2025 10:00 AM [facility] Hematology/Oncology [address] [place] [address] [place] [address] Psoriasis (Primary Dx); Crohn's disease of small intestine with complication (HCC)03/26/2025 Get Medical Advice Gastroenterology [address] [place] [phone] Tomasa Wakefield, DARBY.MANAGER OF CORPORATE COMMUNICATIONS Gmusuuw3303/23/2025 Patient [facility] [address] [place] [address] Provider, Ccf Survey Invitation: ???Female Sexual Dysfunction in Patients with Ileal Pouch- Anal Anastomosis: Evaluating Outcomes and Associations via Patient Survey and Retrospective Chart Review?? (Electronic Assembler Group Leader: Dr. 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); Iron deficiency anemia secondary to inadequate dietary iron intake; Vitamin B12 deficient megaloblastic anemia; Psoriasis; Iron deficiency; Anemia due to vitamin B12 deficiency, unspecified B12 deficiency type; Status post gxuvbqbeaid09/29/3481Npkbgy42/28/2025Refill [facility] [address] [place] [address] Tomasa Wakefield, DARBY.MANAGER OF CORPORATE COMMUNICATIONS Refill Esxqifj4103/06/20255632Uqpxap74/17/2025Refill Gastroenterology [address] [address] Tomasa Wakefield APRN.MANAGER OF CORPORATE COMMUNICATIONS Refill Requestfrom Last 3 Months Immunizations ImmunizationAdministration DatesNext DueCOVID-19 original vaccine, age 12+ yr, monovalent (ID[employer] HoldingsNTSendbloom - PURPLE TOP)10/19/2020,1COVID-19 vaccine, unspecified qmhntddunvh37/04/2024Haemophilus influenzae b (Hib PRP-T) vaccine, 4-dose series (ACTHIB, HIBERIX)11/18/2021influenza (IIV3) vaccine, trivalent, PF (AFLURIA, FLUARIX, FLULAVAL, FLUVIRIN, FLUZONE)05/19/2024influenza (IIV4) vaccine, age 6 mo - 64 yr, quadrivalent, PF (AFLURIA, FLUARIX, FLULAVAL, FLUZONE)03/25/2022,04/19/2021,04/27/2020,04/09/2017,03/12/2017influenza (IIV4) vaccine, quadrivalent (AFLURIA, FLULAVAL, FLUZONE)04/09/2017influenza (ccIIV4) vaccine, age 6+ mo, quadrivalent, PF (FLUCELVAX)05/24/2023,05/21/2019influenza vaccine, unspecified zumuiysrjmo46/26/2023meningococcal (MenACWY-CRM) vaccine, quadrivalent (MENVEO)11/18/2021meningococcal (MenACWY-TT) vaccine, quadrivalent (MENQUADFI)02/02/2022meningococcal B (MenB-4C) vaccine (BEXSERO)11/18/2021 pneumococcal conjugate (PCV13) vaccine, 13 valent (PREVNAR 13)11/18/2021 pneumococcal polysaccharide (PPV23) vaccine, 23 valent (PNEUMOVAX 23)02/02/2022 zoster (RZV) vaccine, recombinant (SHINGRIX)07/02/2020,04/27/2020 Family History Medical HistoryRelationCommentsAnesthesia ProblemsNo Family History Social History Tobacco UseTypesPacks/DayYears UsedDateSmoking Tobacco: NeverSmokeless Tobacco: Never Tobacco Cessation:Counseling Given: Not Answered Alcohol UseStandard Drinks/WeekCommentsYes0 (1 standard drink = 0.6 oz pure alcohol)ocassionallyPHQ-2AnswerDate RecordedPHQ-2 nsxvg0414Area Deprivation IndexAnswerDate RecordedNational Score (1-100), lower number is lower fzcy808009/05/2024State Score (1-10), lower number is lower aarh20509/05/2024 Data from: https://www.neighborhoodatlas.medicine[facility].edu/. Last address used for swtdrrgrqfg[address] [place] [address] 6577909/05/2024CommentsNoSex and Gender InformationValueDate RecordedSex Assigned at JxreqErchsj65/09/2022 7:42 PM EST Legal HrqQjdmsz34/02/2012 9:13 AM ESTGender GviisfyqMygrrk35/09/2022 7:42 PM EST Sexual OrientationNot on file Last Filed Vital Signs Vital SignReadingTime TakenCommentsBlood Czxhaioc677/65004/10/2025 9:54 AM EDT Phqhp3217 9:54 AM JWUZfwegtwcpgv49.3 ??C (97.4 ??F)03/13/2025 9:26 AM EDTRespiratory Hkbp720904/10/2025 9:54 AM EDTOxygen Rpzklpubdb09%04/10/2025 9:54 AM EDTInhaled Oxygen Concentration--Jduqpy69.2 kg (212 lb 1.3 oz)03/13/2025 9:26 AM COYKcrswc488.1 cm (5' 5 )03/13/2025 9:26 AM EDTBody Mass Index35.2908 9:26 AM EDT Plan of Treatment DateTypeDepartmentCare Team (Latest Contact Info)Ycslahmnltp57/07/2025 10:00 AM ESTInfusion Center Hematology/Oncology [address] [place] [address] [place] [address] BZLKCEK8907/17/2025 9:30 AM ESTDistance [facility] Gastroenterology [address] [place] [address] Essence Vera [facility]07/30/2025 11:20 AM [facility] [address] [place] [address] Ashu Paiz MD [address] [address] Follow Up08/21/2025 8:15 AM ESTOffice Visit [facility] [address] [place] [address] [place] [address] lab08/28/2025 1:40 PM ESTVisit (SP) Office Hematology/Oncology [address] [place] [address] [place] [address] Ramon Everett MD [address] [place] [address] [place] [address] 24 week follow up, labs 1 week priorHealth MaintenanceDue DateLast DoneComments Annual PCP Team Chronic Disease Visit1977Anxiety Eksiljcbi22/06/1977HIV Bzrirgqpg01/06/1977DTaP,Tdap,Td Vaccine (1 - Tdap)1978CT Colonography 2004Cologuard (FIT-DNA)06/20/20046120Ublgqlaqhfq61/06/2004Colorectal Cancer Ncrsqvmtl56/06/2004Fecal Occult Blood2004Lipid Bpcccdbbk28/06/2004 Umbnonrpyqibc29/06/2004Mammogram Yldpdrtdw10, 10/04/2017RSV Vaccine (1 - Risk 60-74 years 1-dose series)2019Bone Density Screening 2024dvance Directive Swaukphiwc45/01/2025Medicare Advantage Annual Wellness Visit07/16/2024ovid-19 Vaccine ( season)2025 05/19/2024, 05/24/2023, 07/19/2021, Additional history existsInfluenza Vaccine (#1)511/10/2023, 05/24/2023, 05/10/2023, Additional history exists Pneumococcal Vaccine: 50+ (3 of 3 - PCV20 or PCV21)707/, 2Diabetes Wvqhklwhr26/, 08/29/2024, 01/24/2024, Additional history existsShingrix PwiilhqNrddgavtn98/18/2020, 04/27/2020 Hepatitis C IrynlmhxcJnrkehamv28/01/2021 Medical Devices ImplantedTypeAreaManufacturerDevice IdentifierShelf Expiration DateModel / Serial / LotJoint - AnkleJoint - AnkleLeft: Bone - AnkleMesh Vicryl Flat Polyglactin 910 Woven [id number] Surgical Knit Hernia Repair - [id number] [facility]: AbdomenJ&J ETHICON DRAIN MESH08/15/2025VKML / / [id number] Vicryl Flat Polyglactin 910 Woven [id number] Surgical Knit Hernia Repair - [id number] Implanted:Qty: 1 [facility]/A: AbdomenJ&J ETHICON DRAIN MESH01/12/2026VKML / / [id number] Procedures Procedure NamePriorityDate/TimeAssociated DiagnosisCommentsFOLATE SERUMRoutine 03/06/2025 8:37 AM EDT 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 VITAMIN B12 CLQFMEkxctuq84/22/2025 8:37 AM EDT 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 FERRITIN HZPTrgkbsb96/22/2025 8:37 AM EDT 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 IRON + ULDBRdokzxj73/22/2025 8:37 AM EDT 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 COMPREHENSIVE METABOLIC BOFHENyxmgkf83/22/2025 8:37 AM EDT 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 CBC + XWOPSsrwttg24/22/2025 8:37 AM EDT 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 *HEP C IRWrxmafu61/01/2021 3:31 PM EDT Pouchitis (HCC) from Last 3 Months or Most Recently Relevant to Health Maintenance Results * VITAMIN B12 (03/06/2025 8:37 AM EDT)ComponentValueRef RangeTest MethodAnalysis TimePerformed AtPathologist SignatureVitamin [id number] - 1,245 pg/mL03/06/2025 5:22 PM EDTCGOOD [facility] LABSpecimen (Source)Anatomical Location / LateralityCollection Method / VolumeCollection TimeReceived Time BloodBLOOD SPECIMEN / UnknownVenipuncture / Ezskrep0203/06/2025 8:37 AM EDT 03/06/2025 8:37 AM EDT Narrative Authorizing ProviderResult TypeResult StatusViveanuja Everett MDLABORATORYFinal ResultPerforming OrganizationAddressCity/State/ZIP CodePhone Number [facility] [address] [facility] [address] [address], [place] * IRON AND TIBC (03/06/2025 8:37 AM EDT)ComponentValueRef RangeTest Method Analysis TimePerformed AtPathologist HmedcbbseRutc0040 - 186 ug/dL03/06/2025 5:03 PM EDTCGOOD [facility] BMEBZJT102384 - 386 ug/dL03/06/2025 5:03 PM EDTCGOOD [facility]AN [facility] LABTransferrin Joldmdgkux50.115.0 - 57.0 %03/06/2025 5:03 PM EDTCGOOD SAM[facility]AN [facility] LABSpecimen (Source) Anatomical Location / LateralityCollection Method / VolumeCollection Time Received TimeBloodBLOOD SPECIMEN / UnknownVenipuncture / Lmbjujo4703/06/2025 8:37 AM EDT03/06/2025 8:37 AM EDT Narrative Authorizing ProviderResult TypeResult StatusViveanuja MCGRAWORATORYFinal ResultPerforming OrganizationAddressCity/State/ZIP CodePhone Number [facility] [address] [address], [place] * FOLATE, SERUM (03/06/2025 8:37 AM EDT)ComponentValueRef RangeTest Method Analysis TimePerformed AtPathologist SignatureFolate>20.0>4.7 ng/mL03/06/2025 5:22 PM EDTCGOOD SAMARITAN [facility] LABComment: A result of > 20 ng/mL is not necessarily indicative of a pathologic or treatable condition: it reflects a limitation of the test methodology. Assay reference range: 4.8 to 24.2 ng/mL. Suitable for detection of folate deficiency. Reference: Folate III (Folate III) [package insert V 1.0 Turkmen]. [facility], [place], [place]: May 2015. Specimen (Source)Anatomical Location / LateralityCollection Method / Volume Collection TimeReceived TimeBloodBLOOD SPECIMEN / UnknownVenipuncture / Unknown 03/06/2025 8:37 AM EDT03/06/2025 8:37 AM EDT Narrative Authorizing ProviderResult TypeResult StatusRamon Everett MDLABORATORYFinal ResultPerforming OrganizationAddressCity/State/ZIP CodePhone Number [facility] [address] [facility] [address] [address] [place] [phone], * FERRITIN (03/06/2025 8:37 AM EDT)ComponentValueRef RangeTest MethodAnalysis TimePerformed AtPathologist WeowxcgnmXdpmputh54.314.7 - 205.1 ng/mL03/06/2025 5:22 PM EDTCGO[facility] LABSpecimen (Source)Anatomical Location / LateralityCollection Method / VolumeCollection TimeReceived Time BloodBLOOD SPECIMEN / UnknownVenipuncture / Hwgbtzp3803/06/2025 8:37 AM EDT 03/06/2025 8:37 AM EDT Narrative Authorizing ProviderResult TypeResult StatusRamon Everett MDLABORATORYFinal ResultPerforming OrganizationAddressCity/State/ZIP CodePhone Number [facility] [address] [place] [phone], [place] * (ABNORMAL) COMPREHENSIVE METABOLIC PANEL (03/06/2025 8:37 AM EDT)Component ValueRef RangeTest MethodAnalysis TimePerformed AtPathologist Signature Protein, Total7.06.3 - 8.0 g/dL03/06/2025 9:36 AM EDTNORTHCST [facility] LABAlbumin4.13.9 - 4.9 g/dL03/06/2025 9:36 AM EDTNORTHCOAST [facility] LABCalcium, Total10.08.5 - 10.2 mg/dL03/06/2025 9:36 AM EDTNORTHCST [facility] LABBilirubin, Total0.30.2 - 1.3 mg/dL 03/06/2025 9:36 AM EDTNORTBR[facility] LABAlkaline Hvvpgovzitn7859 - 123 U/L03/06/2025 9:36 AM EDTNORTHCST [facility] WIBTEQ4999 - 35 U/L03/06/2025 9:36 AM [facility] MYFFJA111 - 38 U/L03/06/2025 9:36 AM [facility] BWMDpbztmo065(H)74 - 99 mg/dL03/06/2025 9:36 AM [facility] LABComment: The [place] [employer] (ADA) provides guidance for cutoff values for fasting glucose andrandom glucose. The ADA defines fasting as no caloric intake for at least 8 hours. Fasting plasma glucose results between 100 to 125 mg/dL indicate increased risk for diabetes (prediabetes). Fasting plasma glucose results greater than or equal to 126 mg/dL meet the criteria for diagnosis of diabetes. In the absence of unequivocal hyperglycemia, results should be confirmed by repeat testing. In a patient with classic symptoms of hyperglycemia or hyperglycemic crisis, random plasma glucose results greater than or equal to 200 mg/dL meet the criteria for diagnosis of diabetes. Reference: Standards of Medical Care in Diabetes 2016, [place] [employer]. Diabetes Care. 2016.39(Suppl 1). GNY435 - 21 mg/dL03/06/2025 9:36 AM [facility] LAB Creatinine0.690.58 - 0.96 mg/dL03/06/2025 9:36 AM [facility] QDYLsbrhc588(L)136 - 144 mmol/L03/06/2025 9:36 AM [facility] LABPotassium5.13.7 - 5.1 mmol/L03/06/2025 9:36 AM [facility] GZQZjvffufg75389 - 107 mmol/L03/06/2025 9:36 AM EDT [facility] LUCGX35165 - 30 mmol/L03/06/2025 9:36 AM T [facility] LABAnion Vmg528 - 15 mmol/L03/06/2025 9:36 AM [facility] LABEstimated Glomerular Filtration Rate96 >=60 mL/min/1.73m 03/06/2025 9:36 AM EDTNORTBRONSON [facility] LABComment:Estimated Glomerular Filtration Rate (eGFR) is calculated using the 2020 CKD-EPI creatinine equation. This equation utilizes serum creatinine, sex, and age as parameters. The creatinine assay has traceable calibration to isotope dilution- mass spectrometry. Refer to KDIGO guidelines for clinical interpretation. In patients with unstable renal function, e.g. those with acute kidney injury, the eGFRmay not accurately reflect actual GFR.Specimen (Source)Anatomical Location / LateralityCollection Method / VolumeCollection TimeReceived TimeBloodBLOOD SPECIMEN / UnknownVenipuncture / Gyivgbo3503/06/2025 8:37 AM EDT03/06/2025 8:37 AM EDT Narrative Authorizing ProviderResult TypeResult StatusVivek Marguerite SWANSONLABORATORYFinal ResultPerforming OrganizationAddressCity/State/ZIP CodePhone Number [facility] [address] [place] [phone] * (ABNORMAL) COMPLETE BLOOD COUNT AND DIFFERENTIAL (03/06/2025 8:37 AM EDT) ComponentValueRef RangeTest MethodAnalysis TimePerformed AtPathologist SignatureWBC7.693.70 - 11.00 k/uL03/06/2025 8:46 AM [facility] LABRBC4.273.90 - 5.20 m/uL03/06/2025 8:46 AM ED[facility] DXFIdbecgmvpm33.911.5 - 15.5 g/dL03/06/2025 8:46 AM EDT [facility] SLZQlsxkygjwx47.036.0 - 46.0 %03/06/2025 8:46 AM EDTNORTBR[facility] VHMKRS84.380.0 - 100.0 fL 03/06/2025 8:46 AM EDTNORTBRON[facility] XRXKIA02.226.0 - 34.0 pg03/06/2025 8:46 AM [facility] YOYMSKF07.130.5 - 36.0 g/dL03/06/2025 8:46 AM ED[facility] LABRDW-CV14.6 11.5 - 15.0 %03/06/2025 8:46 AM [facility] LAB Platelet Obihf888(H)150 - 400 k/uL03/06/2025 8:46 AM ED[facility] LABMPV8.4(L)9.0 - 12.7 fL03/06/2025 8:46 AM ED[facility] LABNeutrophils %58.9%03/06/2025 8:46 AM [facility] LABAbs Neut4.531.45 - 7.50 k/03/06/2025 8:46 AM EDT [facility] LABLymphocytes %26.1%03/06/2025 8:46 AM EDT [facility] LABAbs Lymph2.011.00 - 4.00 k/03/06/2025 8:46 AM ED[facility] LABMonocytes %9.5%03/06/2025 8:46 AM [facility] LABAbs Mono0.73<0.87 k/03/06/2025 8:46 AM [facility] LABEosinophils %4.0%03/06/2025 8:46 AM [facility] LABAbs Eosin0.31<0.46 k/uL 03/06/2025 8:46 AM ED[facility] LABBasophils %1.2% 03/06/2025 8:46 AM ED[facility] LABAbs Baso0.09<0.11 k/uL03/06/2025 8:46 AM ED[facility] LABImmature Granulocytes %0.3%03/06/2025 8:46 AM [facility] LAB Abs Immature Gran<0.03<0.10 k/03/06/2025 8:46 AM ED[facility] LABNRBC0.0/100 WBC03/06/2025 8:46 AM [facility] LABAbsolute nRBC<0.01<0.01 k/uL03/06/2025 8:46 AM EDGRE[facility] LABDiff SbmoZuod88/22/2025 8:46 AM EDGRE[facility] LABSpecimen (Source)Anatomical Location / Laterality Collection Method / VolumeCollection TimeReceived TimeBloodBLOOD SPECIMEN / UnknownVenipuncture / Zoalwvy1003/06/2025 8:37 AM EDT03/06/2025 8:37 AM EDT Narrative Authorizing ProviderResult TypeResult StatusVivek Abhytrinh MDLABORATORYFinal ResultPerforming OrganizationAddressCity/State/ZIP CodePhone Number [facility] [address] [place] [address] * HEP REMOTE PANEL BL (10/14/2020 3:31 PM EDT)ComponentValueRef RangeTest Method Analysis TimePerformed AtPathologist SignatureHep B Core Ab, TotalNegative Zoybetrb07/01/2021 8:10 PM EDTCleveland Clinic LaboratoriesHep C Antibody IA ExyxmgwfCrithqqs16/01/2021 8:11 PM EDTCleveland Clinic LaboratoriesHBsAg UpklledeFwlwlmvo21/01/2021 8:11 PM EDTCleveland Clinic LaboratoriesHep B Surface Ab, ZclzShlehxtzWnlaohoe03/01/2021 8:11 PM EDTCleveland Clinic LaboratoriesComment:NEGATIVESpecimen (Source)Anatomical Location / Laterality Collection Method / VolumeCollection TimeReceived TimeBloodBLOOD SPECIMEN / Fmozseo4510/14/2020 3:31 PM EDT10/14/2020 3:33 PM EDT Narrative Authorizing ProviderResult TypeResult StatusTaviridiana Paiz MDLABORATORYFinal Result Performing OrganizationAddressCity/State/ZIP CodePhone Number [facility] [address] [place] [address] [facility] [address] [place] [address] from Last 3 Months or Most Recently Relevant to Health Maintenance Insurance [address] [place] [address] Care Teams Team MemberRelationshipSpecialtyStart DateEnd Date Dar Vasquez DO [address] [facility] [place] [address] PCP - GeneralFamily Medicine02/16/22
--- OUTSIDE RECORDS SUMMARY | 2025-05-21 13:08 | XMS_ITS | CCD ---
Author Organization [facility] CliniSynm Care Team Providers Care Heel Sprayer First Name Role Phone House ., Jignesh Conner Primary Care Provider Bobbi Aguirre Unavailable Renaldo Barton Unavailable Ludy Arnett Unavailable Renaldo Barton DO Primary Care Provider Placido Brody Attending Provider DO Jignesh Trinidad Primary Care Provider MD Ford Perkins Emergency Provider [phone] DO Jignesh Trinidad Attending Provider DARBY Arnett Attending Provider Renaldo Barton DO Primary Care Provider Renaldo Barton DO Primary Care Provider Placido Brody Attending Provider DO Jignesh Trinidad Primary Care Provider [phone] DO Jignesh Trinidad Attending Provider [phone] DO Renaldo Barton Primary Care Provider [facility] Tomasa Attending Provider DO Kody Pruett Emergency Provider DARBY Mcallister Attending Provider [phone] KAYLA WAKEFIELD Admitting Unavailable DR GABE PALUMBO Consulting Unavailable [place], DR RICH Primary Care Unavailable KAYLA WAKEFIELD Attending Unavailable KAYLA WAKEFIELD Consulting Unavailable ANDRIA STEVENSON Admitting Unavailable HOUSE, DR RICH Primary Care Unavailable ANDRIA STEVENSON Attending Unavailable Pedro, DO Dodge R Primary Care Provider [facility] Tomasa Attending Provider DO Kody Pruett Emergency Provider DARBY Mcallister Attending Provider DARBY Galindo Emergency Provider MD Le Colin Admit Provider MD Le Colin Attending Provider DO Renaldo Barton Primary Care Provider MD Gavino Pantoja Attending Provider [phone] DARBY Arnett Attending Provider DO Renaldo Barton R Primary Care Provider Pedro, DO Renaldo Armijo Attending Provider MD Alethea Vickers Attending Provider Renaldo Barton DO Primary Care Provider [facility] Jignesh STEVEip Primary Care [facility] ider DO Renaldo Barton Primary Care Provider DO Renaldo Barton Attending Provider DO Jignesh Trinidad Primary Care Provider DARBY Arnett Attending Provider Nataliia Galindo Unavailable Christie Andrew Unavailable Renaldo Barton DO Primary Care Provider DO Renaldo Barton Primary Care Provider DO Renaldo Barton Attending Provider DO Renaldo Barton Primary Care Provider MD Dontrell Davis Emergency Provider [phone] DO Dontrell Woodruff Admit Provider [phone] DO Dontrell Woodruff Attending Provider Renaldo Barton DO Primary Care Provider DO Enoch Rees Attending Provider DO Renaldo Barton R Attending Provider [phone] BartonDO Renaldo mars R Primary Care Provider [place], EXECUTIVE KITCHEN MANAGER Ludy Estrada Attending Provider [phone] MD Alethea Vickers Attending Provider Renaldo Barton DO Primary Care Provider Pedro STEVE, Renaldo Armijo Primary Care Provider Alethea Vickers MD Attending Provider Pedro STEVE, Renaldo Armijo Primary Care Provider Alethea Vickers MD Attending Provider [place] EXECUTIVE KITCHEN MANAGER, Ludy Estrada Attending Provider Pedro STEVE, Renaldo R Primary Care Provider Saffle Dedra PASTOR Emergency Provider Pedro, Renaldo R Admitting Unavailable Barton, Renaldo R Attending Unavailable Barton, Renaldo R Primary Care Unavailable Mapus, Tondra K Admitting Unavailable [place], Tondra K Attending Unavailable Barton, Renaldo R Primary Care Unavailable Vickers, Alethea W Admitting Unavailable Vickers, Alehtea W Attending Unavailable Barton, Renaldo R Primary Care Unavailable Vickers, Alethea W Admitting Unavailable Vickers, Alethea W Attending Unavailable Barton, Renaldo R Primary Care Unavailable Mapus, Tondra K Admitting Unavailable [place], Tondra K Attending Unavailable Barton, Renaldo R Primary Care Unavailable [place]us, Tondra K Admitting Unavailable [place], Tondra K Attending Unavailable Barton, Renaldo R Primary Care Unavailable SafDedra santiago Attending Unavailable SaffleDedra Admitting Unavailable Barton, Renaldo R Primary Care Unavailable Barton DO, Renaldo R Primary Care Provider Jennifer Mcknight LPN Attending Provider Unav ailable Renaldo Barton DO Attending Provider [phone] Ludy Arnett APRN Attending Provider TOMASA WAKEFIELD Attending Unavailable RENALDO BARTON Primary Care Unavailabl e BARTON, RENALDO WELLS Primary Care Unavailabl e BARTON, RENALDO WELLS Primary Care Unavailabl e ABHYANKAR, ANA Attending Unavailable ABSIRENAANKAR, ANA Referring Unavailable BARTON, RENALDO WELLS Primary Care Unavailabl e TOMASA WAKEFIELD Attending Unavailable SELF Referring Unavailable BARTON, RENALDO WELLS Primary Care Unavailabl e GRIER, MANDEEPK Referring Unavailable BARTON, RENALDO WELLS Primary Care Unavailabl e THERON HARRIS Referring Unavailable BARTON, RENALDO WELLS Primary Care Unavailabl e THERON HARRIS Attending Unavailable BARTON, RENALDO WELLS Primary Care Unavailabl e CLIFTON HOWARD Attending Unavailable GRIER, MANDEEPK Referring Unavailable BARTON, RENALDO WELLS Primary Care Unavailabl e TOMASA WAKEFIELD Attending Unavailable BARTON, RENALDO WELLS Primary Care Unavailabl e ABHYANKAR, ANA Referring Unavailable BARTON, RENALDO RUSSELL Primary Care Unavailabl e ABHYANKAR, ANA Attending Unavailable ABHYANKAR, ANA Referring Unavailable BARTON, RENALDO WELLS Primary Care Unavailabl e IZABEL, TAHA Referring Unavailable BARTON, RENALDO WELLS Primary Care Unavailabl e IZABEL, TAHA Referring Unavailable BARTON, RENALDO WELLS Primary Care Unavailabl e Allergies Allergy ClassificationReported Allergen(s)Allergy TypeDate of OnsetReaction(s) FacilityGlycopeptides (antibiotic) (2 sources)VancomycinDrug Fibyvxz49-36-2472EhehKuhpzxbncDayton Children's Hospital Macrolides (antibiotic) (2 sources)AzithromycinDrug Xqrzvjg49-88-3731WvyybssPhhdqmgzrAccess Hospital DaytonNitroimidazoles (antibiotic) (2 sources)metroNIDAZOLEDrug Zrtcdtu04-90-4574BelxdawOwdpcbkszMetroHealth Parma Medical CenterNSAIDs (2 sources)NaproxenDrug Ygwfkum86-73-8121AyppxqhSelect Medical [facility], AvonPenicillins (antibiotic) (2 sources)PenicillinDrug Usjorts71-76-1625RejeIbsptgdnzShelby Memorial Hospital Sulfonamides (antibiotic) (2 sources)Sulfonamides (Antibiotic)Drug Sgobbyd13-37-4258AuktdgbKabxvoxdrAccess Hospital Dayton (20 sources)metroNIDAZOLE; Translations: [METRONIDAZOLE]Drug Vjhvpsw40-96-6125 ItchingUniversity [facility]als [facility] Work Phone: (20 sources)Naproxen; Translations: [NAPROXEN]Drug Mrlcmob43-95-9880Hqlwaot, Redness of SkinUniversity Hospitals Lake West Medical Center (20 sources)Penicillins; Translations: [PENICILLINS]Propensity to adverse -87-8135Lrrbjbz of [facility] (20 sources)Sulfonamides (Antibiotic); Translations: [SULFA (SULFONAMIDE ANTIBIOTICS)]Propensity to adverse uhdcuyyzc03-74-9780IuzjuzpBlbutzkag Clinic (20 sources)Vancomycin; Translations: [VANCOMYCIN]Drug Ndhzbox29-66-2656Dvrv [facility] Work Phone: (20 sources)Zpack [Other]Propensity to adverse -14-7488Whgpbgtgi Clinic (20 sources)Azithromycin; Translations: [AZITHROMYCIN]Drug Tvnqcqf44-42-0047 [facility] Work Phone: (20 sources)PenicillinsPropensity to adverse kfrwavkcv43-94-1259Twgljnrip Clinic (20 sources)Penicillin GDrug Gmdhvom63-48-3463XbtcgyuFulton County Health Center (20 sources)Sulf-10Drug allergyUnkSullivan County Memorial Hospital [employer] Other (2 sources)AzithromycinDrug Hisvczf68-01-3204Ees [facility] Repository (2 sources)metroNIDAZOLEDrug Gntsvbr01-33-6075Nuq [facility] Repository (2 sources)NaproxenDrug Solzfig86-93-5944Yhq [facility] Repository (2 sources)PenicillinsDrug allergy (disorder)The [facility] Repository (2 sources)Sulfonamides (Antibiotic)Drug allergy (disorder)59-14-9265Gwk [facility] Repository (1 source)1,2-pentanediolDrug allergy (disorder)The [facility] Repository (16 sources)PenicillinsPropensity to adverse sjznrlhun41-15-0175Oqqwmgjwe Clinic (1 source)AzithromycinDrug Oyggcpp68-66-8657LlqrolijzOhio State Health System Repository (1 source)metroNIDAZOLEDrug Hbkgeev93-71-4112LvkzhrrzkOhio State Health System Repository (1 source)NaproxenDrug Vuztbqq56-31-2611IlcheflatOhio State Health System Repository (1 source)PenicillinDrug Ernbukd27-43-1530VbvedydrgOhio State Health System Repository (1 source)Sulfonamides (Antibiotic)Drug allergy (disorder)67-91-7800GtyzsesusOhio State Health System Repository (1 source)VancomycinDrug Wgvssli07-58-5016RywhuddioOhio State Health System Repository Medications Current Medications MedicationDrug Class(es)DatesSig (Normalized)Sig (Original)0.5 ML tirzepatide 10 MG/ML Auto-Injector [Mounjaro] (4 sources)Start: 40-48-1301Deoadwcn 5 MG/0.5ML as directed Subcutaneous May, ActiveMounjaro 5 MG/0.5ML as directed Subcutaneous once weekly for 84 days Active0.5 ML tirzepatide 5 MG/ML Auto-Injector [Mounjaro] (4 sources)Start: 64-07-6446Fnbmfuak 2.5 MG/0.5ML as directed Subcutaneous May, Activeacetaminophen 500 mg oral tablet (5 sources)Start: 12-26-2021 End: 23-78-1121wknz 2 tablets by mouth every six hoursacetaminophen (TYLENOL) 500 mg tablet Take 2 tablets by mouth every 6 hours for 3 days. 24 tablet 0 12/26/2021 12/29/2021 ActiveComment on above:Take 2 tablets by mouth every 6 hours for 3 days.apremilast 30 mg oral tablet (20 sources)Start: 55-19-8714nskyqcrquo (OTEZLA) 30 mg tablet Apremilast (Otezla) 30 mg tablet Active 30 MG PO .once daily June 09, 2024 1:00am 06/09/2024 Active End: 02-01-0760nwmjappnjd (OTEZLA) 30 mg tablet Take 30 mg by mouth as needed. 0 08/08/2022 Discontinued (Course of therapy completed)Otezla ActiveComment on above:Take 30 mg by mouth as needed. atenolol 25 mg oral tablet (20 sources)beta-Adrenergic BlockerStart: 01-22-2024 End: 76-16-0638aehx 1 tablet by mouth once dailyAtenolol 25 mg tablet Discontinued 0 .ROUTE .COMPLEX 90 January 22, 2024 12:13pm February 27, 2024 4:2 1pm TAKE 1 TABLET BY MOUTH EVERY DAY FOR 90 DAYSStart: 07-30-2017 End: 13-24-3434ohga 1 tablet by mouth once dailyatenolol (TENORMIN) 25 mg tablet Take 1 tablet by mouth once daily. 30 tablet 10/27/2023 ActiveComment on above: Take 25 mg by mouth once daily.Take 1 tablet by mouth once daily.atropine sulfate 0.025 mg / diphenoxylate hydrochloride 2.5 mg oral tablet (20 sources)Anticholinergic, Cholinergic Muscarinic Antagonist, Antidiarrheal Start: 11-05-2024 End: 94-80-2542lwrb 1 tablet by mouth once as needed, then take 3 tablets by mouth four times daily as neededdiphenoxylate-atropine (LOMOTIL) 2.5-0.025 mg per tablet Indications: Indeterminate colitis TAKE 1 TABLET BY MOUTH 3 OR 4 TIMES DAILY NEEDED 120 tablet 5 03/13/2025 09/12/2025 ActiveStart: 06-30-2024 End: 40-70-7831fykf 1 tablet by mouth once as needed, then take 3 tablets by mouth four times daily as neededdiphenoxylate-atropine (LOMOTIL) 2.5-0.025 mg per tablet Indications: Indeterminate colitis TAKE 1 TABLET BY MOUTH 3 OR 4 TIMES DAILY NEEDED 120 tablet 3 06/30/2024 ActiveStart: 02-06-2024 End: 58-30-0649gvaw 1 tablet by mouth once as needed, then take 3 tablets by mouth four times daily as neededdiphenoxylate-atropine (LOMOTIL) 2.5-0.025 mg per tablet Indications: Indeterminate colitis TAKE 1 TABLET BY MOUTH 3 OR 4 TIMES DAILY NEEDED 120 tablet 3 02/06/2024 ActiveStart: 07-06-2023 End: 00-68-7066yuyk 1 tablet by mouth three to four times daily as needed diphenoxylate-atropine (LOMOTIL) 2.5-0.025 mg per tablet Indications: Indeterminate colitis TAKE 1 TABLET BY MOUTH 3-4 TIMES DAILY NEEDED 120 tablet 0 07/06/2023 ActiveStart: 12-25-2022 End: 69-79-7875rayppciaajkrx-atropine (LOMOTIL) 2.5-0.025 mg per tablet Indications: Indeterminate colitis 1 TABLET 3-4 TIMES DAILY NEEDED 120 tablet 12 12/25/2022 ActiveStart: 08-04-2022 End: 18-90-8437twzt 1 tablet by mouth once at bedtimediphenoxylate-atropine (LOMOTIL) 2.5-0.025 mg per tablet Indications: Crohn's disease of small intes segundo with complication (HCC) Take 1 tablet by mouth before meals and at bedtime for 90 days. 120 tablet 2 08/04/2022 12/18/2022 DiscontinuedStart: 04-10-2022 End: 93-53-3458efza 1 tablet by mouth once at bedtimediphenoxylate-atropine (LOMOTIL) 2.5-0.025 mg per tablet Indications: Crohn's disease of small intes segundo with complication (HCC) Take 1 tablet by mouth before meals and at bedtime for 90 days. 120 tablet 2 04/10/2022 07/09/2022 ActiveStart: 07-01-2021 End: 24-24-8693mhcf 2 tablets by mouth once at bedtimediphenoxylate-atropine (LOMOTIL) 2.5-0.025 mg per tablet Indications: Diarrhea, unspecified type TAKE 2 TABLETS BY MOUTH BEFORE MEALS AND AT BEDTIME 720 tablet 1 07/01/2021 12/08/2021 DiscontinuedStart: 09-18-2020 End: 45-06-1059yoyq 1 tablet by mouth at bedtimeDiphenoxylate-Atropine 2.5-0.025 mg tablet Discontinued 1 TAB PO As Directed September 18, 2020 1:00amMa2024 4:40pm TAKE 1 TABS BY MOUTH BEFORE MEALS AND AT BEDTIMEStart: 07-30-2017 End: 58-65-1090Wnlnkeortrwmq-Atropine (Lomotil) 2.5-0.025 mg Tablet Discontinued 1 TAB PO every 6 to 8 hours as needed for Diarrhea July 30, 2017 1:00am August 19, 2020 9:30amtake 2 tablets by mouth every six hoursDiphenoxylate- Atropine 2.5-0.025 MG 2 tablets as needed Orally Four times a day Activetake 5 mL by mouth every six hours as neededdiphenoxylate-atropine sulfate (LOMOTIL) 2.5-0.025 mg/5 mL liquid Take 5 mL by mouth four times daily as needed. 0 Active Comment on above:TAKE 2 TABLETS BY MOUTH BEFORE MEALS AND AT BEDTIMETake 5 mL by mouth four times daily as needed.Take 1 tablet by mouth before meals and at bedtime for 90 days.1 TABLET 3-4 TIMES DAILY NEEDEDTAKE 1 TABLET BY MOUTH 3-4 TIMES DAILY NEEDEDbenzonatate 100 mg oral capsule (5 sources)Non-narcotic AntitussiveStart: 91-80-1639bhdy 1 capsule by mouth three times daily as neededTessalon Perles 100 MG 1 capsule as needed Orally Three times a day for 7 days Jun, ActiveStart: 61-63-8859jhna 1 capsule by mouth every eight hoursBenzonatate 200 MG 1 capsule Orally Three times a day Jun, Not-Taking/PRNBlood-Glucose Sensor (Freestyle Christopher 3 Plus Sensor) device (8 sources)Start: 58-90-9456Xxkam-Glucose Sensor (Freestyle Christopher 3 Plus Sensor) device Active 0 .Route November 03, 2024 2:55pm As directed Change every 15 days in vitroStart: 11-03-2024 End: 75-20-8782Hfywl-Glucose Sensor (Freestyle Christopher 3 Plus Sensor) device Discontinued 0 .Route November 03, 2024 12:00am November 03, 2024 2:57pm As directed Change every 15 days in vitrobudesonide 3 mg delayed release oral capsule (17 sources)CorticosteroidStart: 09-23-2021 End: 63-80-5140rzfa 3 capsules by mouth once daily, then take 2 capsules by mouth once daily, then take 1 capsule by mouth once dailybudesonide, enteric coated (ENTOCORT EC) 3 mg 24 hr capsule Take 3 capsules by mouth once daily for 30 days, THEN 2 capsules once daily for 30 days, THEN 1 capsule once daily. 180 capsule 0 09/23/2021 12/22/2021 SuspendedBudesonide ActiveComment on above:Take 3 capsules by mouth once daily for 30 days, THEN 2 capsules once daily for 30 days, THEN 1 capsule once daily.ciprofloxacin 500 mg oral tablet (20 sources)Quinolone AntimicrobialStart: 01-20-2025 End: 10-67-7598rqyv 1 tablet by mouth twice dailyciprofloxacin HCl (CIPRO) 500 mg tablet Indications: Crohn's disease of small intestine with complication (HCC) Take 1 tablet by mouth two times a day. Two weeks; Two week off 84 tablet 01/20/2025 03/03/2025 ActiveStart: 05-26-2024 End: 70-84-1951riiy 1 tablet by mouth twice dailyCiprofloxacin Hcl 500 mg tablet Discontinued 500 MG PO Twice daily June 09, 2024 1:00am December 09, 2024 4:39pm 2 weeks on and 2 weeks off until advised otherwise by GI DoctorStart: 12-27-2023 End: 79-03-8367qokn 1 tablet by mouth twice dailyciprofloxacin HCl (CIPRO) 500 mg tablet Take 1 tablet by mouth two times a day. instructed by , 14 days on; 14 days off 84 tablet 0 12/27/2023 02/07/2024 ActiveStart: 09-28-2023 End: 59-01-6444oefe 1 tablet by mouth twice dailyciprofloxacin HCl (CIPRO) 500 mg tablet Take 1 tablet by mouth two times a day for 14 days. 28 tablet 0 10/27/2023 11/10/2023 ActiveStart: 07-30-2023 End: 95-11-3573olei 1 tablet by mouth twice dailyciprofloxacin HCl (CIPRO) 250 mg tablet Take 1 tablet by mouth two times a day. 60 tablet 2 07/30/2023 09/28/2023 DiscontinuedStart: 03-27-2023 End: 34-72-0506cncz 1 tablet by mouth twice dailyciprofloxacin HCl (CIPRO) 500 mg tablet Take 1 tablet by mouth two times a day. 60 tablet 0 04/19/2023 05/19/2023 Activeciprofloxacin HCl (CIPRO ORAL) Take by mouth. 0 ActiveComment on above:Take 1 tablet by mouth twice daily.Take 1 tablet by mouth two times a day.Take by mouth.Take 1 tablet by mouth two times a day. Would alternate two weeks on; two weeks offTake 1 tablet by mouth two times a day for 14 days. clobetasol propionate 0.0005 mg/mg topical gel (12 sources)CorticosteroidStart: 27-23-0928Mtwqkfkigc 0.05 % gel Active 1 APPLIC TOPICAL Twice daily as needed February 16, 2025 12:00am Complies with drug therapyStart: 48-93-1477Xsfwyzdubc 0.05 % cream Active TOPICAL as needed November 03, 2024 8:18am Complies with drug therapyStart: 06-09-2024 End: 61-24-4937Kavdzlexsq 0.05 % cream Discontinued TOPICAL June 09, 2024 1:00am November 03, 2024 8:22amDiphenoxylate-Atropine (1 source)Diphenoxylate-Atropine Activedoxycycline hyclate 100 mg oral capsule (5 sources)Tetracycline-class DrugStart: 92-46-1722jcvj 1 capsule by mouth every twelve hoursDoxycycline Hyclate 100 MG 1 capsule Orally Twice a day for 5 days Jun, ActiveStart: 86-11-5593oqgi 1 tablet by mouth every twelve hours Doxycycline Hyclate 100 MG 1 tablet Orally Twice a day for 10 day(s) Jun, Not-Taking/PRNergocalciferol 1.25 mg oral capsule (20 sources)Provitamin D2 CompoundStart: 09-19-2024 End: 91-75-0813suza 1 capsule by mouth every weekergocalciferol 50,000 unit capsule (VITAMIN D2, DRISDOL) TAKE 1 CAPSULE BY MOUTH ONE TIME A WEEK. 12 capsule 1 03/03/2025 ActiveStart: 06-24-2021 End: 32-88-0203vvbacarsnhnybq 50,000 unit capsule (VITAMIN D2, DRISDOL) Take by mouth. 0 12/06/2021 12/05/2023 DiscontinuedComment on above:TAKE 1 CAPSULE BY MOUTH ONCE A WEEKTAKE 1 CAPSULE BY MOUTH ONE TIME PER WEEKTake by mouth.ferrous sulfate 325 mg oral tablet (20 sources)Start: 15-14-8553irib 1 tablet by mouth once dailyFerrous Sulfate 325 mg (65 mg iron) tablet Active 325 MG PO Daily September 04, 2023 1:00am Complies with drug therapytake 1 tablet by mouth five times weeklyferrous sulfate 325 mg (65 mg iron) tablet Take 325 mg by mouth five times a week. Activetake 1 tablet by mouth every twenty-four hoursFerrous Sulfate 325 (65 Fe) MG 1 tablet Orally once a day ActiveComment on above:Take 325 mg by mouth five times a week.FLUoxetine 20 mg oral capsule (20 sources)Serotonin Reuptake InhibitorStart: 56-68-7541wvpu 1 capsule by mouth once dailyFluoxetine 20 mg capsule Active 20 MG PO Daily July 17, 2024 12:29pm Complies with drug therapyStart: 03-24-2024 End: 19-61-6473kbpv 1 capsule by mouth once dailyFluoxetine 20 mg capsule Discontinued 0 .ROUTE .COMPLEX March 24, 2024 8:41am July 17, 2024 12:29pm TAKE 1 CAPSULE BY MOUTH EVERY DAY FOR 90 DAYSStart: 07-30-2017 End: 83-35-9642crlu 1 tablet by mouth once dailyFluoxetine 20 mg capsule Discontinued 1 TAB PO Daily July 30, 2017 1:00am July 30, 2017 10:23am take 1 capsule by mouth once dailyFLUoxetine HCl 20 MG 1 capsule Orally Once a day for 90 Days ActiveFluoxetine ActiveComment on above:Take 20 mg by mouth once daily.folic acid 1 mg oral tablet (20 sources)Start: 40-46-4699wbbn 1 tablet by mouth once dailyfolic acid 1 mg tablet TAKE 1 TABLET BY MOUTH EVERY DAY 90 tablet 3 11/21/2024 ActiveStart: 08-15-2023 End: 44-46-8833ubom 1 tablet by mouth once dailyfolic acid 1 mg tablet TAKE 1 TABLET BY MOUTH EVERY DAY 90 tablet 3 11/21/2024 ActiveComment on above:Take 1 tablet by mouth once daily.hydroxychloroquine sulfate 200 mg oral tablet (20 sources)Antimalarial, Antirheumatic AgentStart: 07-27-2023 End: 48-70-7775ncaePFYafkqqbGQNFY (PLAQUENIL) 200 mg tablet Take 200 mg by mouth. 09/05/2023 ActiveStart: 10-29-2022 End: 38-33-3021abgc 1-2 tablets by mouth once daily as neededHydroxychloroquine 200 mg tablet Active 200 MG PO Daily as needed for mouth sores September 05, 2023 9:07am TO TAKE 1-2 TABS BY MOUTH DAILY NEEDED FOR 2-3 WEEKS Complies with drug therapyStart: 07-30-2017 End: 93-62-8674kwzl 1 tablet by mouth once daily as neededHydroxychloroquine 200 mg tablet Discontinued 1 TAB PO Daily as needed for as directed July 30, 2017 1:00am September 18, 2020 12:16pmComment on above:Take 200 mg by mouth as needed. Take 1 tablet by mouth every 12 hours.hydrOXYzine (1 source)AntihistaminehydrOXYzine HCl Active3 ml insulin lispro 100 unt/ml pen injector (20 sources)Insulin AnalogStart: 84-93-3499gpvmgbt lispro (HUMALOG KWIKPEN INSULIN) 100 unit/mL Inject 0-10 units three times daily following the sliding scale: If Blood Glucose (mg/dL) is 400 give 10units and notify provider. 5 Pen 2 12/26/2021 ActiveComment on above:Inject 0-10 units three times daily following the sliding scale: If Blood Glucose (mg/dL) is <110 Give 0 units 111-150 Give 0 units 151-200 Give 2 unit 201-250 Give 4 units 251-300 Give 6 units 301-350 Give 8 units 351-400 Give 10 units >400 give 10units and notify provider.iv contrast (will be provided with radiology test) (8 sources)Start: 12-19-2024 End: 30-65-3035hn contrast (will be provided with radiology test) MRI PANC/ROSE MARIE Inject, intravenously, once for 1 dose. No IV access, insert saline lock prior to the beginning of sedation, infusion, injection of imaging exam. Discontinue saline lock post exam. If Pt. has a central line or IVAD, may access for admin istration according to line specific nursing protocol. Once exam is complete flush line and de-access according to line specific nursing protocol in the MR contrast administration guidelines link. 1 each 12/19/2024 12/20/2024 Active Start: 12-11-2023 End: 59-50-9440ku contrast (will be provided with radiology test) MRI PANC/ROSE MARIE Inject, intravenously, once for 1 dose. No IV access, insert saline lock prior to the beginning of sedation, infusion, injection of imaging exam. Discontinue saline lock post exam. If Pt. has a central line or IVAD, may access for admin istration according to line specific nursing protocol. Once exam is complete flush line and de-access according to line specific nursing protocol in the MR contrast administration guidelines link. 1 Each 0 12/11/2023 12/12/2023 Active Start: 12-15-2022 End: 49-71-7567ze contrast (will be provided with radiology test) MRI PANC/ROSE MARIE Inject, intravenously, once for 1 dose. No IV access, insert saline lock prior to the beginning of sedation, infusion, injection of imaging exam. Discontinue saline lock post exam. If Pt. has a central line or IVAD, may access for admin istration according to line specific nursing protocol. Once exam is complete flush line and de-access according to line specific nursing protocol in the MR contrast administration guidelines link. 1 Each 0 12/15/2022 12/16/2022 Start: 12-15-2022 End: 73-08-4982xf contrast (will be provided with radiology test) MRI PANC/ROSE MARIE Inject, intravenously, once for 1 dose. No IV access, insert saline lock prior to the beginning of sedation, infusion, injection of imaging exam. Discontinue saline lock post exam. If Pt. has a central line or IVAD, may access for admin istration according to line specific nursing protocol. Once exam is complete flush line and de-access according to line specific nursing protocol in the MR contrast administration guidelines link. 1 Each 0 12/15/2022 12/16/2022 Active Start: 01-10-2022 End: 17-81-5500pv contrast (will be provided with radiology test) MRI PANC/ROSE MARIE Inject, intravenously, once for 1 dose. No IV access, insert saline lock prior to the beginning of sedation, infusion, injection of imaging exam. Discontinue saline lock post exam. If Pt. has a central line or IVAD, may access for admin istration according to line specific nursing protocol. Once exam is complete flush line and de-access according to line specific nursing protocol in the MR contrast administration guidelines link. 1 Each 0 01/10/2022 01/11/2022 Active Start: 10-21-2021 End: 38-57-4640kn contrast (will be provided with radiology test) MRI PANC/ROSE MARIE Inject, intravenously, once for 1 dose. No IV access, insert saline lock prior to the beginning of sedation, infusion, injection of imaging exam. Discontinue saline lock post exam. If Pt. has a central line or IVAD, may access for admin istration according to line specific nursing protocol. Once exam is complete flush line and de-access according to line specific nursing protocol in the MR contrast administration guidelines link. 1 Each 0 10/21/2021 10/22/2021 Active Comment on above:MRI PANC/ROSE MARIE Inject, intravenously, once for 1 dose. No IV access, insert saline lock prior to the beginning of sedation, infusion, injection of imaging exam. Discontinue saline lock post exam. If Pt. has a central line or IVAD, may access for administration according to line specific nursing protocol. Once exam is complete flush line and de-access according to line specific nursing protocol in the MR contrast administration guidelines link.Lactobacillus acidophilus (20 sources)Lactobacillus acidophilus (PROBIOTIC ORAL) Take by mouth. Active Lactobacillus acidophilus (PROBIOTIC ORAL) Take by mouth. 0 Suspended Lactobacillus acidophilus (PROBIOTIC ORAL) Take by mouth. 0 ActiveComment on above:Take by mouth.levothyroxine sodium 0.15 mg oral tablet (20 sources)l-ThyroxineStart: 09-10-2024 End: 22-80-0413tioq 1 tablet by mouth once dailyLevothyroxine 150 mcg tablet Discontinued 0 .ROUTE .COMPLEX 90 September 10, 2024 9:53am November 03, 2024 8:22am TAKE 1 TABLET BY MOUTH DAILYStart: 07-30-2017 End: 96-60-0079xuqq 1 tablet by mouth once dailylevothyroxine (SYNTHROID) 150 mcg tablet Take 1 tablet by mouth once daily. 30 tablet 09/23/2020 Activetake 1 tablet by mouth once dailyLevothyroxine Sodium 150 MCG TAKE 1 TABLET BY MOUTH EVERY DAY Oral Activetake 1 tablet by mouth once daily in the morningSynthroid 175 MCG 1 tablet on an empty stomach in the morning Orally Once a day for 30 day(s) ActiveComment on above:Take 1 tablet by mouth once daily.loperamide hydrochloride 2 mg oral capsule (6 sources)Opioid AgonistStart: 04-19-2023 End: 21-99-9083dliy 1 capsule by mouth every eight hours as neededloperamide (IMODIUM) 2 mg cap(s) Take 1 capsule by mouth three times a day as needed. 90 capsule 2 04/19/2023 07/18/2023 ActiveComment on above:Take 1 capsule by mouth three times a day as needed.mecobalamin 1 mg chewable tablet (20 sources)take 1000 ug by mouth once dailymecobalamin, vitamin B12, 1,000 mcg chew Take by mouth once daily. ActiveComment on above:Take by mouth once daily. 24 hr metFORMIN hydrochloride 500 mg extended release oral tablet (20 sources)BiguanideStart: 11-23-2022 End: 04-33-8843zsbh 1 tablet by mouth once daily at mealtimemetFORMIN ER (GLUCOPHAGE XR) 500 mg 24 hr tablet TAKE 1 TABLET BY MOUTH EVERY DAY IN THE EVENING WITH MEAL 11/23/2022 ActiveComment on above:TAKE 1 TABLET BY MOUTH EVERY DAY IN THE EVENING WITH MEALmounjaro 2.5 mg/0.5ml solution pen-injector (3 sources)Start: 67-88-3701Dvtuwqed 2.5 MG/0.5ML as directed Subcutaneous May, Activemounjaro 5 mg/0.5ml solution pen-injector (3 sources)Mounjaro 5 MG/0.5ML as directed Subcutaneous once weekly for 84 days Activeomeprazole 20 mg delayed release oral capsule (20 sources)Proton Pump InhibitorStart: 05-20-2024 End: 63-48-4268kcql 1 tablet by mouth once dailyOmeprazole 20 mg capsule,delayed release(DR/EC) Active 0 .ROUTE .COMPLEX December 15, 2024 8:22am TAKE 1 TABLET BY MOUTH EVERYDAY Complies with drug therapyStart: 09-18-2020 End: 50-89-1365okeh 1 capsule by mouth once dailyOmeprazole 20 mg capsule,delayed release(DR/EC) Discontinued 20 MG PO Daily December 24, 2023 12:20pm May 20, 2024 10:20amStart: 08-19-2020 End: 87-51-8254hijk 1 capsule by mouth once dailyOmeprazole 40 mg Capsule,Delayed Release(Dr/Ec) Discontinued 40 MG PO Daily August 19, 2020 1:00am September 18, 2020 12:14pmStart: 07-30-2017 End: 41-20-8603bzuy 1 capsule by mouth once dailyOmeprazole 40 mg capsule,delayed release(DR/EC) Discontinued 40 MG PO Daily 84 84 July 30, 2017 1:00am October 21, 2017 12:00am October 22, 2017 12:01am swallow whole; do not crush, chew, dissolve, or cut/breakComment on above:Take 40 mg by mouth once daily.OneTouch Verio - (19 sources)OneTouch Verio - test sugar three times a day DX: e11.65 Active OneTouch Verio - USE INSTRUCTED THREE TIMES DAILY In Vitro for 30 Days Active oxyCODONE hydrochloride 5 mg oral tablet (5 sources)Opioid AgonistStart: 12-26-2021 End: 73-57-6287gwqe 1 tablet by mouth every six hours as needed for pain oxyCODONE IR (ROXICODONE) 5 mg immediate release tablet Indications: Post- operative pain Take 1 tablet by mouth every 6 hours as needed for pain for up to 3 days. 5 tablet 0 12/26/2021 12/29/2021 ActiveComment on above:Take 1 tablet by mouth every 6 hours as needed for pain for up to 3 days.Potassium (1 source)Potassium ActivepredniSONE 20 mg oral tablet (2 sources)Start: 16-12-9808uidvavrgvt 20 MG as directed with food Orally 3 tablets qday x 3 days, 2 tablets qday x 3 days, 1 tablet qday x3 days for 9 days Jun, Activerosuvastatin calcium 5 mg oral tablet (14 sources)HMG-CoA Reductase InhibitorStart: 28-97-2375rgsm 1 tablet by mouth once dailyrosuvastatin (CRESTOR) 5 mg tablet Take 1 tablet by mouth once daily. 12/09/2024 Activespironolactone 25 mg oral tablet (20 sources)Aldosterone AntagonistStart: 62-25-0940rmrr 1 tablet by mouth once dailySpironolactone 25 mg tablet Active 0 .ROUTE .COMPLEX 90 December 31, 2024 10:23am TAKE 1 TABLET BY MOUTH EVERY DAY Complies with drug therapyStart: 05-20-2024 End: 73-14-9039wsnk 1 tablet by mouth once dailySpironolactone 25 mg tablet Discontinued 0 .ROUTE .COMPLEX 90 May 20, 2024 10:19am November 03, 2024 8:22am TAKE 1 TABLET BY MOUTH EVERY DAYStart: 06-05-2023 End: 18-94-9639dinn 1 tablet by mouth oncespironolactone (ALDACTONE) 25 mg tablet Take 1 tablet by mouth every afternoon. 07/23/2023 ActiveStart: 51-10-6373guej 0.5 tablet by mouth every twenty-four hoursSpironolactone 25 MG 0.5 tablet Orally Once a day for 90 days May, ActiveComment on above: Take 1 tablet by mouth every afternoon.Tapinarof (5 sources)Start: 39-86-5616Gyiqeexwr (Vtama) 1 % cream Active APPLIC TOPICAL November 03, 2024 12:00am Complies with drug therapyStart: 38-47-5895Letlajzmy (Vtama) 1 % cream Active APPLIC TOPICAL November 03, 2024 12:00amtapinarof (VTAMA) 1 % cream (3 sources)Start: 91-35-0610qeodvwatb (VTAMA) 1 % cream Tapinarof (Vtama) 1 % cream Active APPLIC TOPICAL November 03, 2024 12:00am 11/03/2024 Activevitamin b12 1 mg oral capsule (20 sources)Vitamin T72Bcgiq: 04-78-1941krft 1 capsule by mouth once daily Cyanocobalamin (Vitamin B-12) 1,000 mcg capsule Active 1000 MCG PO Daily September 05, 2023 1:00amComplies with drug therapyStart: 09-04-2023 End: 32-21-9448ggtqyc 1000 ug by intramuscular injection every month Cyanocobalamin (Vitamin B-12) 1,000 mcg/mL solution Discontinued 1000 MCG IM every month September 04, 2023 1:00am September 05, 2023 9:06amStart: 09-04-2023 End: 22-67-8676upxoic 1000 ug by intramuscular injection every month Cyanocobalamin (Vitamin B-12) Discontinued 1000 MCG IM every month September 04, 2023 1:00am September 05, 2023 9:06amStart: 01-09-2023 End: 27-18-8694wyyhbasqdyjsiq 1,000 mcg/mL Indications: vitamin B12 deficiency Inject 1 mL once monthly for 12 months. To start this therapy after completing 4 weekly doses. 12 mL 0 01/09/2023 05/21/2023 DiscontinuedStart: 01-09-2023 End: 79-30-7901xzipvlqfjexruo 1,000 mcg/mL Indications: vitamin B12 deficiency Inject 1 mL once weekly for four weeks. 4 mL 0 01/09/2023 05/21/2023 DiscontinuedCyanocobalamin 1000 MCG/ML 1 mL Injection once a month ActiveComment on above:Inject 1 mL once weekly for four weeks.Inject 1 mL once monthly for 12 months. To start this therapy after completing 4 weekly doses. Completed/Discontinued Medications MedicationDrug Class(es)DatesSig (Normalized)Sig (Original)[id number] 60 actuat albuterol 0.09 mg/actuat metered dose inhaler (3 sources)beta2-Adrenergic AgonistStart: 43-75-5701pxev 2 puff(s) by inhalation four times daily as neededAlbuterol Sulfate HFA 108 (90 Base) MCG/ACT 2 puffs Inhalation 4 times a day prn Jun, Not-Taking/PRNaspirin 81 mg chewable tablet (20 sources)Platelet Aggregation Inhibitor, Nonsteroidal Anti-inflammatory Drug take 1 tablet by mouth in the morningAspirin Low Dose 81 MG CHEW 1 TABLET (81 MG TOTAL) AND SWALLOW IN THE MORNING. Oral for 30 Days Not-Taking End: 18-50-0327gtspjmh (ASPIR-81 ORAL) Take by mouth once daily. 0 08/08/2022 Discontinued (Course of therapy completed)aspirin (ASPIR-81 ORAL) Take by mouth once daily. 0 ActiveComment on above:Take by mouth once daily.biotin 1 mg chewable tablet (14 sources)Start: 09-05-2023 End: 10-37-7242ylvw 1 tablet by mouth once dailyBiotin 1,000 mcg tablet,chewable Discontinued 1000 MCG PO Daily September 05, 2023 1:00am October 24, 2023 1:57amblood-glucose sensor (FreeStyle Christopher 3 Plus Sensor) (5 sources)Start: 11-03-2024 End: 46-82-7644hwzpl-glucose sensor (FreeStyle Christopher 3 Plus Sensor) Discontinued .Route November 03, 2024 12:00am February 16, 2025 9:42amStart: 02-12-3359uarqj- glucose sensor (FreeStyle Christopher 3 Plus Sensor) Active .Route November 03, 2024 12:00amStart: 11-49-6471kaxzq-glucose sensor (FreeStyle Christopher 3 Plus Sensor) Active .ROUTE November 03, 2024 12:00amcholecalciferol 0.025 mg oral capsule (20 sources)Vitamin DStart: 12-07-2023 End: 26-53-3598oybl 1 capsule by mouth once dailyCholecalciferol, Vitamin D3, (VITAMIN D) 25 mcg (1,000 unit) cap Take 1 capsule by mouth once daily. 12/07/2023 03/03/2025 Discontinueddiclofenac sodium 0.01 mg/mg topical gel (20 sources)Nonsteroidal Anti-inflammatory DrugStart: 07-30-2017 End: 19-29-0130Oudpccxoaf Sodium 1 % gel Discontinued 1 UNIT TOPICAL As Directed July 30, 2017 1:00am August 19, 2020 9:30amStart: 07-30-2017 End: 38-98-2135Xyedxstieq Sodium Discontinued 1 UNIT TOPICAL As Directed July 30, 2017 1:00am August 19, 2020 9:30am0.4 ml enoxaparin sodium 100 mg/ml prefilled syringe (20 sources)Low Molecular Weight HeparinStart: 12-26-2021 End: 34-60-1664Yllwhpqqnx (Lovenox) 40 mg/0.4 mL syringe Discontinued 40 MG SUBCUT Q12H 0.8 December 27, 2021 12:00am October 29, 2022 12:21pmComment on above:Inject 0.4 mL (entire contents of 1 syringe) subcutaneously every 12 hours.FreeStyle Christopher 2 [place] Sy[employer]m - (8 sources)Start: 69-80-1174QgzcJwaol Christopher 2 [place] Sy[employer]m - as directed use with 14 days sensor check glucose with reader ac, hs, prn for 365 days Feb, Not-TakingStart: 62-53-3866RjeoAsbaj Christopher 2 [place] Sy[employer]m - as directed use with 14 days sensor check glucose with reader ac, hs, prn for 365 days Feb, ActiveFreeStyle Christopher 2 Sensor Systm - (8 sources)Start: 86-46-2156SlspMiazm Christopher 2 Sensor Systm - as directed use with christopher reader change q 14 days, check glucose ac, hs and prn for 28 days Feb, Not-TakingStart: 49-49-6165QtboXeqkr Christopher 2 Sensor Systm - as directed use with christopher reader change q 14 days, check glucose ac, hs and prn for 28 days Feb, ActivehydroCHLOROthiazide 25 mg oral tablet (20 sources)Thiazide DiureticStart: 10-29-2022 End: 22-00-5839Xakufvrphegopmmmmzy 25 mg tablet Discontinued 25 MG PO October 29, 2022 12:00am September 0549:07amhydroCHLOROthiazide ActiveComment on above:Take 25 mg by mouth once daily.Insulin Aspart U-100 (Novolog Flexpen U- 100 Insulin) 100 unit/mL (3 mL) Insulin Pen (19 sources)Start: 10-29-2022 End: 52-03-6413Stwwldb Aspart U-100 (Novolog Flexpen U-100 Insulin) 100 unit/mL (3 mL) Insulin Pen Discontinued SUBCUT October 29, 2022 12:00am September 05, 2023 9:13am PT HAS SLIDING SCALEStart: 10-29-2022 End: 11-62-7826Wyoynmn Aspart U-100 (Novolog Flexpen U-100 Insulin) 100 unit/mL (3 mL) Insulin Pen Discontinued SUBCUT October 28, 2022 11:00pm September 05, 2023 8:13am PT HAS SLIDING SCALEStart: 79-95-4289Gdzehvi Aspart U-100 (Novolog Flexpen U-100 Insulin) 100 unit/mL (3 mL) Insulin Pen Active SUBCUT October 28, 2022 11:00pm PT HAS SLIDING SCALEStart: 15-49-9771Fjhukch Aspart U-100 (Novolog Flexpen U-100 Insulin) 100 unit/mL (3 mL) Insulin Pen Active SUBCUT October 29, 2022 12:00am PT HAS SLIDING SCALEInsulin Aspart U-100 (Novolog Flexpen U-100 Insulin) 100 unit/mL (3 mL) insulin pen (20 sources)Start: 06-09-2024 End: 16-28-1824Lfymxbh Aspart U-100 (Novolog Flexpen U-100 Insulin) 100 unit/mL (3 mL) insulin pen Discontinued 0 SUBCUT Use as Directed June 09, 2024 9:56am June 09, 2024 10:01am subcutaneously use as directed; 1:25 corrective scale ac tidStart: 06-09-2024 End: 80-49-6800Zthjnpe Aspart U-100 (Novolog Flexpen U-100 Insulin) 100 unit/mL (3 mL) insulin pen Discontinued 0 SUBCUT Use as Directed June 09, 2024 8:56am June 09, 2024 9:01am subcutaneously use as directed; 1:25 corrective scale ac tidStart: 06-09-2024 End: 81-57-0984xjnfjm 1 dose by subcutaneous injection onceInsulin Aspart U-100 (Novolog Flexpen U-100 Insulin) 100 unit/mL (3 mL) insulin pen Discontinued 1 s liding scale dose SUBCUT Use as Directed June 09, 2024 1:00am June 09, 2024 9:56am per SSCStart: 06-09-2024 End: 93-58-1926eirxjq 1 dose by subcutaneous injection onceInsulin Aspart U-100 (Novolog Flexpen U-100 Insulin) 100 unit/mL (3 mL) insulin pen Discontinued 1 s liding scale dose SUBCUT Use as Directed June 09, 2024 12:00am June 09, 2024 8:56am perSSCStart: 12-03-2023 End: 03-66-2510Tjgwbwj Aspart U-100 (Novolog Flexpen U-100 Insulin) 100 unit/mL (3 mL) insulin pen Discontinued 0 SUBCUT .COMPLEX as needed for blood sugar December 03, 2023 7:56am December 03, 2023 8:30am subcutaneouslyPRN; PT HAS SLIDING SCALE Start: 12-03-2023 End: 49-70-8127Bdxiebd Aspart U-100 (Novolog Flexpen U-100 Insulin) 100 unit/mL (3 mL) insulin pen Discontinued 0 SUBCUT .COMPLEX as needed for blood sugar December 03, 2023 6:56am December 03, 2023 7:30am subcutaneouslyPRN; PT HAS SLIDING SCALE Start: 12-03-2023 End: 45-49-8720Udshxru Aspart U-100 (Novolog Flexpen U-100 Insulin) 100 unit/mL (3 mL) insulin pen Discontinued 0 SUBCUT .COMPLEX December 03, 2023 7:56am December 03, 2023 8:30am subcutaneously PRN; PT HAS SLIDING SCALEStart: 12-03-2023 Insulin Aspart U-100 (Novolog Flexpen U-100 Insulin) 100 unit/mL (3 mL) insulin pen Active 0 SUBCUT.COMPLEX December 03, 2023 7:56am subcutaneously PRN; PT HAS SLIDING SCALEStart: 09-05-2023 End: 56-57-6048Sjqrerz Aspart U-100 (Novolog Flexpen U-100 Insulin) 100 unit/mL (3 mL) insulin pen Discontinued SUBCUT as needed for blood sugar September 05, 2023 9:08am December 03, 2023 7:58am PT HAS SLIDING SCALEStart: 09-05-2023 End: 05-58-6177Kfvpkem Aspart U-100 (Novolog Flexpen U-100 Insulin) 100 unit/mL (3 mL) insulin pen Discontinued SUBCUT as needed for blood sugar September 05, 2023 8:08am December 03, 2023 6:58am PT HAS SLIDING SCALEStart: 09-05-2023 End: 23-77-2652Vuxgepn Aspart U-100 (Novolog Flexpen U-100 Insulin) 100 unit/mL (3 mL) insulin pen Discontinued SUBCUT September 05, 2023 9:08am December 03, 2023 7:58am PT HAS SLIDING SCALEStart: 26-96-6710Cshcshf Aspart U-100 (Novolog Flexpen U-100 Insulin) 100 unit/mL (3 mL) insulin pen Active SUBCUT September 05, 2023 9:08am PT HAS SLIDING SCALEStart: 33-83-8802Cievkaq Aspart U-100 (Novolog Flexpen U-100 Insulin) 100 unit/mL (3 mL) insulin pen [facility] PT HAS SLIDING SCALE3 ml insulin aspart, human 100 unt/ml pen injector (20 sources)Insulin AnalogStart: 06-09-2024 End: 64-36-5326Qdyktaz Aspart U-100 (Novolog Flexpen U-100 Insulin) 100 unit/mL (3 mL) insulin pen Discontinued 0 SUBCUT Use as Directed June 09, 2024 10:00am November 03, 2024 8:58am subcutaneously use as directed; 1:25 corrective scale ac tidStart: 06-09-2024 End: 57-68-9335svriys 1 dose by subcutaneous injection onceInsulin Aspart U-100 (Novolog Flexpen U-100 Insulin) 100 unit/mL (3 mL) insulin pen Discontinued 1 s liding scale dose SUBCUT Use as Directed June 09, 2024 1:00am June 09, 2024 9:56am per SSCStart: 10-29-2022 End: 58-12-4867Knyxlye Aspart U-100 (Novolog Flexpen U-100 Insulin) 100 unit/mL (3 mL) insulin pen Discontinued 0 SUBCUT .COMPLEX as needed for blood sugar December 03, 2023 7:56am December 03, 2023 8:30am subcutaneouslyPRN; PT HAS SLIDING SCALE End: 86-36-9204upsheca aspart U-100 (NOVOLOG) 100 unit/mL (3 mL) Inject subcutaneously. 2 UNITS IF GLUCOSE IS HIGH0 12/05/2023 DiscontinuedNovoLOG FlexPen 100 UNIT/ML 1:25 corrective scale ac, hs Subcutaneous As Directed Active NovoLOG FlexPen 100 UNIT/ML PLEASE SEE ATTACHED FOR DETAILED DIRECTIONS Subcutaneous ActiveComment on above:Inject subcutaneously. 2 UNITS IF GLUCOSE IS HIGHketoconazole 20 mg/ml topical cream (5 sources)Azole AntifungalStart: 11-03-2024 End: 87-59-5915Wvyqajjcfpqc 2 % cream Discontinued APPLIC TOPICAL November 03, 2024 12:00am November 03, 2024 8:19amlidocaine hydrochloride 0.02 mg/mg topical gel (1 source)Antiarrhythmic, Amide Local AnestheticStart: 01-13-2025 End: 36-86-6969DNIVUS MEMBRANE, X (OR/PROCEDURE) PRN, Starting on Sun01/13/25 at 0852, Until Sun01/13/25 at 0852, Intraprocedurelinezolid 600 mg oral tablet (20 sources)Oxazolidinone AntibacterialStart: 11-01-2022 End: 37-33-9645tide 1 tablet by mouth twice dailyLinezolid 600 mg tablet Discontinued 600 MG PO Twice daily November 01, 2022 12:00am September 05, 2023 9:09ammagnesium hydroxide 80 mg/ml oral suspension (20 sources)Start: 12-26-2021 End: 72-31-0740tihpsgelu hydroxide (MOM) 400 mg/5 mL suspension 30 mL by NASOGASTRIC route once daily as needed for constipation. 210 mL 0 12/26/2021 08/08/2022 Discontinued (Course of therapy completed)Comment on above:30 mL by NASOGASTRIC route once daily as needed for constipation.magnesium oxide 400 mg oral tablet (20 sources)Start: 35-40-1329uyzx 1 tablet by mouth once dailyMagnesium Oxide Active 0 .ROUTE .COMPLEX 90 October 01, 2023 10:44am TAKE 1 TABLET BY MOUTH EVERY DAY FOR 90 DAYSStart: 06-19-2023 End: 40-91-4936yzwh 1 tablet by mouth oncemagnesium oxide (MAG-OX) 400 mg (241.3 mg magnesium) tablet Take 1 tablet by mouth every afternoon.06/19/2023 Active Start: 06-19-2023 End: 18-63-2073dazz 1 tablet by mouth once dailyMagnesium Oxide 400 mg (241.3 mg magnesium) tablet Discontinued 400 MG PO Daily September 0441:00am October 01, 2023 10:44amComment on above:Take 1 tablet by mouth every afternoon. meloxicam 15 mg oral tablet (20 sources)Nonsteroidal Anti-inflammatory DrugStart: 08-19-2020 End: 24-57-7293xatd 1 tablet by mouth once dailyMeloxicam 15 mg Tablet Discontinued 15 MG PO Daily August 19, 2020 1:00am September 18, 2020 12:17pm Meloxicam ActiveComment on above:Take 15 mg by mouth once daily.mesalamine 1200 mg delayed release oral tablet (20 sources)AminosalicylateStart: 09-18-2020 End: 79-73-1835Xgxqwgguew (LIALDA) 1.2 gram EC tablet Mesalamine Active PO September 18, 2020 11:14am 0 09/18/2020 08/08/2022 Discontinued (Course of therapy completed)Start: 09-18-2020 End: 18-52-8770derl 1 capsule by mouth every twenty-four hoursMesalamine 0.375 gram capsule,extended release 24hr Discontinued PO September 18, 2020 1:00am 2023 9:10amStart: 09-18-2020 End: 44-05-7830izmg 1 capsule by mouth every twenty-four hoursMesalamine 0.375 gram capsule,extended release 24hr Discontinued PO September 18, 2020 1:00am 2023 9:10amStart: 09-18-2020 End: 69-15-0926isjd 1 capsule by mouth every twenty-four hoursMesalamine 0.375 gram capsule,extended release 24hr Discontinued PO September 18, 2020 12:00am September 05, 2023 8:10amStart: 09-18-2020 End: 78-56-5575Upwfosjgch Discontinued PO September 18, 2020 1:00am September 05, 2023 9:10amStart: 09-18-2020 End: 26-81-4513Wgqjjnvpjx Discontinued PO September 18, 2020 12:00am September 05, 2023 8:10amStart: 52-32-3799Nzzzwsdyaf Active PO September 18, 2020 12:00amStart: 05-63-4296Duwvygijhd Active PO September 18, 2020 1:00amStart: 83-64-2537hxvo 4 capsules by mouth every twenty-four hoursApriso 0.375 GM 4 capsules in the morning Orally Once a day for 30 days Aug, Not-TakingComment on above: Mesalamine Active PO September 18, 2020 11:14ammethylPREDNISolone 4 mg oral tablet (3 sources)CorticosteroidStart: 56-32-3185Oflrfc 4 MG as directed Orally As Directed for 6 days Jun, Not-Taking/PRNMOUNJARO 5 mg/0.5 mL pen injector (8 sources)Start: 06-18-2023 End: 27-54-1113yemodm 5 mg by subcutaneous injection every weekMOUNJARO 5 mg/0.5 mL pen injector INJECT 5MG UNDER THE SKIN ONCE WEEKLY FOR 84 DAYS DIRECTED 0 06/18/2023 12/05/2023 DiscontinuedStart: 80-88-0514zgrqey 5 mg by subcutaneous injection every weekMOUNJARO 5 mg/0.5 mL pen injector INJECT 5MG UNDER THE SKIN ONCE WEEKLY FOR 84 DAYS DIRECTED 0 06/18/2023 ActiveComment on above:INJECT 5MG UNDER THE SKIN ONCE WEEKLY FOR 84 DAYS DIRECTEDondansetron 4 mg disintegrating oral tablet (2 sources)Serotonin-3 Receptor AntagonistStart: 12-03-2024 End: 85-02-8535gxyu 1 tablet by mouth three times dailyOndansetron 4 mg tablet,disintegrating Discontinued 4 MG PO Three times daily 9 December 03, 2024 12:00am December 09, 2024 4:41pmpotassium chloride 10 meq extended release oral tablet (20 sources)Start: 11-02-2021 End: 58-38-8818gwry 1 tablet by mouth once dailyPotassium Chloride 10 mEq tablet extended release Discontinued 10 MEQ PO Daily October 29, 2022 12:00am September 05, 2023 9:11amComment on above:Take 10 mEq by mouth once daily.potassium citrate 99 mg oral tablet (2 sources)Start: 12-09-2024 End: 60-88-0322qwhr 1 mg by mouth once dailyPotassium Citrate 99 mg capsule Discontinued MG PO Daily December 09, 2024 12:00am February 16, 2025 9:53am risankizumab-rzaa 600 mg in D5W 100 mL (SKYRIZI) (1 source)Start: 03-13-2025 End: 81-67-7474811 mg, INTRAVENOUS, Administer over 1 Hours, ONCE, 1 dose, On Sun03/13/25 at 1030, Approx Total Volume: EXP: 1400 03/13/25 Room Temp Refrigerate. Protect From Light. Allow to warm to room temperature prior to start of infusion.sodium phosphate, dibasic 59.3 mg/ml / sodium phosphate, monobasic 161 mg/ml enema (3 sources)Start: 01-13-2025 End: 12-48-3270ppyt 1 dose rectal route kmet234 mL, RECTAL, ONCE, 1 dose, On Sun01/13/25 at 0830, FOR RECTAL USE, PreprocedureStart: 12-27-2023 End: 30-00-9747mxrfdb phosphate-sodium bisphosphate 133 mL enema (FLEWILFRIDO) Tirzepatide (20 sources)Start: 09-05-2023 End: 88-04-4950Ixiwuxtfuby (Mounjaro) 5 mg/0.5 mL pen injector Discontinued 5 MG SUBCUT every week 6 84 September 05, 2023 8:40am September 24, 2023 7:52am Take once/week on WednesdaysStart: 09-05-2023 End: 85-60-9379Ocguowfyrbo (Mounjaro) 5 mg/0.5 mL pen injector Discontinued 5 MG SUBCUT every week 6 September 05, 2023 9:40am September 24, 2023 8:52am Take once/week on : 62-12-5584Vxhbiolgmyz (Mounjaro) 5 mg/0.5 mL pen injector Active 5 MG SUBCUT every week September 05, 2023 8:40am Take once/week on : 09-04-2023 End: 60-15-7383Oywfxwutfll (Mounjaro) 5 mg/0.5 mL pen injector Discontinued 5 MG SUBCUT every week September 04, 2023 1:00am September 05, 2023 9:43amStart: 09-04-2023 End: 86-66-3966Hnmnhoeuicu (Mounjaro) 5 mg/0.5 mL pen injector Discontinued 5 MG SUBCUT every week September 04, 2023 12:00am September 05, 2023 8:43am Tirzepatide (20 sources)Start: 12-03-2023 End: 72-30-0965Nmesfhghlae (Mounjaro) 2.5 mg/0.5 mL pen injector Discontinued 2.5 MG SUBCUT every week December 03, 2023 7:29am December 03, 2023 7:30amStart: 12-03-2023 End: 07-43-4699Intxmgvkgtt (Mounjaro) 2.5 mg/0.5 mL pen injector Discontinued 2.5 MG SUBCUT every week December 03, 2023 8:29am December 03, 2023 8:30amStart: 09-10-6831Hefceowkmjr (Mounjaro) 2.5 mg/0.5 mL pen injector Active 2.5 MG SUBCUT every week December 03, 2023 8:29amStart: 11-06-2023 End: 70-57-4120Sfmrzsnyfdd (Mounjaro) 2.5 mg/0.5 mL pen injector Discontinued 2.5 MG SUBCUT every week 2 November 06, 2023 2:39pm December 03, 2023 7:29am Start: 11-06-2023 End: 73-26-1329Quilpsdpteb (Mounjaro) 2.5 mg/0.5 mL pen injector Discontinued 2.5 MG SUBCUT every week 2 November 06, 2023 3:39pm December 03, 2023 8:29am Start: 09-24-2023 End: 94-70-4294Qawunmftjyg (Mounjaro) 2.5 mg/0.5 mL pen injector Discontinued 2.5 MG SUBCUT every week 2 September 23, 2023 11:00pm November 06, 2023 2:40pm Start: 09-24-2023 End: 55-43-7446Eitatcfiuvi (Mounjaro) 2.5 mg/0.5 mL pen injector Discontinued 2.5 MG SUBCUT every week 2 September 24, 2023 12:00am November 06, 2023 3:40pm Start: 12-27-2854Bofbdjblgzo (Mounjaro) 2.5 mg/0.5 mL pen injector Active 2.5 MG SUBCUT every week 2 September 24, 2023 12:00amTriamcinolone (20 sources)CorticosteroidStart: 95-45-6231VBJUSCT - 10 mg Jan, 40 mg vedolizumab 300 mg injection (20 sources)Integrin Receptor AntagonistStart: 10-13-2024 End: 22-00-2439axowoziqutb (ENTYVIO) 300 mg injection Infuse 300 mg at week 0, 2, 6, then every 8 weeks thereafter. 8 Each 6 10/13/2024 01/26/2025 Discontinued Start: 29-30-8574Yflcueryrnv (Entyvio) 300 mg recon soln Active 300 MG IV EVERY 4 WEEKS September 04, 2023 1:00am Complies with drug therapytake 300 mg intravenously every monthEntyvio 300 MG as directed Intravenous once a month ActiveEntyvio ActiveComment on above:Infuse 300 mg every 4 weeks. Problems Active Problems Problem ClassificationProblemDateDocumented DateEpisodic/ChronicAbdominal hernia (20 sources)Hiatal hernia; Translations: [Diaphragmatic hernia without obstruction or gangrene]EpisodicAcute and unspecified renal failure (18 sources)Acute renal failure syndrome; Translations: [Acute kidney failure, unspecified]01-23-7055FajvtwwrVkkvjryydjjkar/social admission (20 sources)Dietary counseling and surveillance; Translations: [Repeated prescription]Onset: 02-13-2022 Resolved: 10-86-2623HwpkyjqlUjmxptz obstructive pulmonary disease and bronchiectasis (2 sources)Bronchitis, not specified as acute or chronicEpisodicComplications of surgical procedures or medical care (20 sources)Other complications of intestinal pouch; Translations: [Ileal pouchitis]EpisodicDeficiency and other anemia (1 source)Nutritional anemia; Translations: [Vitamin B12 deficiency anemia, unspecified]30-58-1339YaektnxbMseebwclif and other anemia (1 source)Vitamin B12 deficiency anemia, unspecified; Translations: [Anemia due to vitamin B12 deficiency, unspecified B12 deficiency type]Onset: 03-13-2025 EpisodicDiabetes mellitus with complications (20 sources)Type 2 diabetes mellitus; Translations: [Type 2 diabetes mellitus with other specified complication]Onset: 02-89-7542WpakguaBclqlrmr mellitus without complication (20 sources)Secondary diabetes mellitus; Translations: [Diabetes mellitus due to underlying condition without complications]Onset: 01-27-2022 Resolved: 19-10-3319FqsnzctRpmvazmff of lipid metabolism (20 sources)Hyperlipidemia; Translations: [Hyperlipidemia, unspecified]Onset: 02-13-2022 Resolved: 52-65-1526OkggncfYtsfeprylm disorders (20 sources)Gastroesophageal reflux disease without esophagitis; Translations: [Gastro-esophageal reflux disease without esophagitis]Onset: 73-08-4197Gqbabjh Essential hypertension (20 sources)Hypertensive disorder; Translations: [Essential (primary) hypertension]Onset: 12-08-2021 Resolved: 41-87-8424TwulempDleuf and electrolyte disorders (20 sources)Hyponatremia; Translations: [Hypo-osmolality and hyponatremia] 34-29-4369JyzksctqNtceetm and fatigue (1 source)Other fatigue; Translations: [Other fatigue]Onset: 16-85-3673Wtjuxsxv Mood disorders (20 sources)Depressive disorder; Translations: [Depression]Onset: 12-20-2021 82-39-0904WhmtnmsHyghwg and vomiting (2 sources)Nausea and vomiting; Translations: [Nausea with vomiting, unspecified]35-22-6616LlxcbvtmFjvqpcyltmdsz gastroenteritis (4 sources)Indeterminate colitis; 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] 77-73-1311GrufycbXvyhrfpxsmb deficiencies (20 sources)Vitamin D deficiency; Translations: [Vitamin D deficiency, unspecified]Onset: 31-10-3698FthmhwqJurqelvboiw deficiencies (2 sources)Iron deficiency; Translations: [Iron deficiency]Onset: 03-13-2025 61-55-2205TtfkbovgGzwnnltsxwzkcr (2 sources)Arthritis; Translations: [Unspecified osteoarthritis, unspecified site]02-21-5588IodyvfjGedca aftercare (20 sources)Long-term current use of insulin; Translations: [penitentiary (current) use of insulin]62-54-9703JwlcfdinCxssn aftercare (5 sources)penitentiary (current) use of insulin; Translations: [Long-term (current) use of insulin]Onset: 01-27-2022 Resolved: 16-10-9888UkooboonUsxgm connective tissue disease (3 sources)Pain in right foot; Translations: [PAIN IN RIGHT FOOT]Onset: 26-82-7049CougfzmmVisbb connective tissue disease (1 source)Pain in left foot; Translations: [PAIN IN LEFT FOOT]Onset: 10-08-2022 EpisodicOther gastrointestinal disorders (20 sources)Dysphagia; Translations: [Dysphagia, unspecified]EpisodicOther gastrointestinal disorders (1 source)Diarrhea; Translations: [Diarrhea, unspecified]EpisodicOther inflammatory condition of skin (8 sources)Psoriasis; Translations: [Psoriasis, unspecified]Onset: 02-18-2025 85-12-4108YxpxximXwzqw inflammatory condition of skin (1 source)Psoriasis vulgaris; Translations: [Psoriasis vulgaris]Onset: 40-53-3008MtxddlhAgwwm inflammatory condition of skin (1 source)Psoriasis, unspecified; Translations: [Psoriasis]Onset: 02-18-2025 ChronicOther non-traumatic joint disorders (1 source)Pain in right ankle and joints of right foot; Translations: [PAIN IN RIGHT ANKLE]Onset: 38-94-2068SqlzcrzeUwyis non-traumatic joint disorders (1 source)Pain in left ankle and joints of left foot; Translations: [PAIN IN LEFT ANKLE]Onset: 50-51-3667KxcfrtptHnpao nutritional; endocrine; and metabolic disorders (20 sources)Body mass index 30+ - obesity; Translations: [Body mass index (BMI) 38.0-38.9, adult]Onset: 63-56-9207QtawcxwKidix nutritional; endocrine; and metabolic disorders (20 sources)Obese class II; Translations: [Body mass index (BMI) 39.0-39.9, adult]ChronicOther nutritional; endocrine; and metabolic disorders (1 source)Body mass index (BMI) 36.0-36.9, adultOnset: 02-13-2022 Resolved: 22-67-8423WxmiyfaCcmim nutritional; endocrine; and metabolic disorders (1 source)Body mass index (BMI) 35.0-35.9, adultChronicOther nutritional; endocrine; and metabolic disorders (20 sources)Obese class I; Translations: [Obesity, unspecified]Onset: 12-15-2022 16-52-3861QwjusmbBorww nutritional; endocrine; and metabolic disorders (3 sources)Body mass index (BMI) 33.0-33.9, adult; Translations: [Body Mass Index 33.0-33.9, adult]ChronicOther nutritional; endocrine; and metabolic disorders (3 sources)Body mass index (BMI) 32.0-32.9, adult; Translations: [Body Mass Index 32.0-32.9, adult]69-83-2782UtjdljvOdnuc nutritional; endocrine; and metabolic disorders (4 sources)Body mass index (BMI) 30.0-30.9, adult; Translations: [Body Mass Index 30.0-30.9, adult]21-98-2161BqyantlQytai nutritional; endocrine; and metabolic disorders (3 sources)Body mass index (BMI) 34.0-34.9, adult; Translations: [Body Mass Index 34.0-34.9, adult]33-57-5296ChdqvvgVdjlc nutritional; endocrine; and metabolic disorders (2 sources)Hypomagnesemia; Translations: [Hypomagnesemia]64-14-2097[facility] enteritis and ulcerative colitis (20 sources)Crohn's disease of small intestine; Translations: [Crohn's disease of small intestine with unspecified complications]Onset: ChronicResidual codes; unclassified (17 sources)History of pancreatectomy; Translations: [Acquired total absence of pancreas]ChronicResidual codes; unclassified (3 sources)Acquired total absence of pancreasOnset: 02-13-2022 Resolved: 23-70-8026XpztwrxOfvajfze codes; unclassified (20 sources)Patient encounter status; Translations: [Encounter for prophylactic measures, unspecified]Onset: 380032-53-5164GmfvgwnkRsmfwosi codes; unclassified (20 sources)History of colectomy; Translations: [Acquired absence of other specified parts of digestive tract]70-77-7737WvegizugKkcrehrz codes; unclassified (2 sources)Acquired absence of spleen; Translations: [Status post splenectomy] Onset: 92-11-2305YpftcyucRbmc and subcutaneous tissue infections (20 sources)Cellulitis; Translations: [Cellulitis, unspecified]10-29-2022 EpisodicThyroid disorders (20 sources)Hypothyroidism; Translations: [Hypothyroidism, unspecified]Onset: 12-20-2021 Resolved: 785319-95-9465NgibvroWsmstqtmldlw (20 sources)Drug therapy finding; Translations: [DVT prophylaxis]Onset: 541272-77-0313Lenjaadknabf (1 source)Thrombocytosis 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; Translations: [Thrombocytosis 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]Onset: 18-68-8475Smqekdhweshq (1 source)IBD Follow UpOnset: 67-50-3222Awaku infection (20 sources)Disease caused by 2019-nCoV; Translations: [COVID-19]08-04-2022 Episodic Past or Other Problems Problem ClassificationProblemDateDocumented DateEpisodic/ChronicAllergic reactions (1 source)Nummular dermatitis; Translations: [Nummular dermatitis]Onset: 30-75-3922ZovekypyEdnzetccen and other anemia (20 sources)Megaloblastic anemia due to vitamin B>12< deficiency; Translations: [Other megaloblastic anemias, not elsewhere classified]Onset: 11-08-2023 11-42-6226MglcbmbiGafezgrujo and other anemia (20 sources)Iron deficiency anemia secondary to inadequate dietary iron intake; Translations: [Other iron deficiency anemias]Onset: 045795-06-2811Tyqetohc Deficiency and other anemia (1 source)Other megaloblastic anemias, not elsewhere classified; Translations: [Vitamin B12 deficient megaloblastic anemia]Onset: 99-33-4254QktmsmnyTvauqptcoe and other anemia (1 source)Other iron deficiency anemias; Translations: [Iron deficiency anemia secondary to inadequate dietary iron intake]Onset: 08-46-4829MrtgymnoN Codes: Fall (1 source)Unspecified fall, initial encounterOnset: 11-13-2021 Resolved: 53-88-8625DrwrjlyyQdcykrrlpn obstruction without hernia (20 sources)Small bowel obstruction; Translations: [Unspecified intestinal obstruction, unspecified as to partial versus complete obstruction]Onset: 379797-84-7306NdtmvfjdYdkhneajj of unspecified nature or uncertain behavior (20 sources)Benign neoplasm of pancreas; Translations: [Neoplasm of unspecified behavior of digestive system]Onset: 12-08-2021 Resolved: 84-89-3571LmtvwyszChzoq aftercare (20 sources)Drug therapy finding; Translations: [Other terminal makeup operator (current) drug therapy]Onset: 927063-50-7530SriqvsppFcyox connective tissue disease (20 sources)Pain in right foot; Translations: [Pain in right foot]Onset: 586507-93-8037XkbxnmsvJwmlf connective tissue disease (20 sources)Pain in left foot; Translations: [Pain in left foot]Onset: 885858-52-0520RqnlbkifAnkcl nervous system disorders (20 sources)Postoperative pain ; Translations: [Other acute postprocedural pain] Onset: 419738-08-4217LgwrszwlEmpzm non-traumatic joint disorders (20 sources)Pain in left knee; Translations: [Pain in joint, lower leg]Onset: 89-03-3448KpyeyhiwZsjud non-traumatic joint disorders (20 sources)Arthralgia of the ankle and/or foot; Translations: [Pain in left ankle and joints of left foot]Onset: 760976-80-5908AbgvrlffIxuky non- traumatic joint disorders (1 source)Effusion, right kneeOnset: 11-13-2021 Resolved: 63-87-5251ItvjoleoNrhiv screening for suspected conditions (not mental disorders or infectious disease) (15 sources)Abnormal findings diagnostic imaging of liver+biliary tract; Translations: [Abnormal findings on diagnostic imaging of liver and biliary tract]Onset: 72-12-7683WthilhgaCeifxzzcum disorders (not diabetes) (20 sources)Cyst of pancreas; Translations: [Cyst of pancreas]Onset: 12-09-2021 Episodic Results Test NameValueInterpretationReference RangeFacilityCNPNon 69-49-7921RUTK Telephone (GASTMN) LAURA STEPHENSON ([id number]) 1960 F Date Time Provider Department 04/29/25 ASHU MITTAL GASTTX During your visit today, we recorded the following information about you: Lisa Mcnally 04/29/2025 2:15 PM Signed Fax received from [facility] requesting Skyrizi prescription. Documents have been uploaded into [employer] for further review Janell Gallo RN 04/30/2025 10:55 AM Signed Contacted pt to verify if she is planning on continuing Skyrizi. Pt confirmed she is continuing on the Skyrizi for now. Pt states her insurance will be changing in May and will update records at that time so that Rx and PA for OBI can be submitted once new policy is in place. Assisted pt with scheduling appt with Dr. Pascal, PharmD on 05/18/25. Janell Gallo RN April 30, 2025 10:55 AM Allergies As of Date: 04/29/2025 Noted Allergy Reaction AZITHROMYCIN 11/23/2012 16 - Unknown METRONIDAZOLE 03/12/2003 9 - Itching Comments: Itching and redness NAPROXEN 03/12/2003 PENICILLINS 03/12/2003 SULFA (SULFONAMIDE ANTIBIOTICS) 03/12/2003 16 - Unknown VANCOMYCIN 07/05/2021 2 - Rash Date Reviewed: 04/10/2025 Reviewed by: Daina Brooks, MINAL - Fully Assessed Reason for Visit: Medication Request [138] Prescriptions as of 04/30/2025 - ciprofloxacin HCl (CIPRO) 500 mg tablet TAKE 1 TABLET BY MOUTH TWO TIMES A DAY FOR TWO WEEKS THEN TWO WEEK OFF - diphenoxylate-atropine (LOMOTIL) 2.5-0.025 mg per tablet TAKE 1 TABLET BY MOUTH 3 OR 4 TIMES DAILY NEEDED - hydrOXYchloroQUINE (PLAQUENIL) 200 mg tablet Take 200 mg by mouth. - tapinarof (VTAMA) 1 % cream Tapinarof (Vtama) 1 % cream Active APPLIC TOPICAL November 03, 2024 12:00am - ergocalciferol 50,000 unit capsule (VITAMIN D2, DRISDOL) TAKE 1 CAPSULE BY MOUTH ONE TIME A WEEK. - apremilast (OTEZLA) 30 mg tablet Apremilast (Otezla) 30 mg tablet Active 30 MG PO .once daily June 09, 2024 1:00am - rosuvastatin (CRESTOR) 5 mg tablet Take 1 tablet by mouth once daily. - folic acid 1 mg tablet TAKE 1 TABLET BY MOUTH EVERY DAY - atenolol (TENORMIN) 25 mg tablet Take 1 tablet by mouth once daily. - spironolactone (ALDACTONE) 25 mg tablet Take 1 tablet by mouth every afternoon. - magnesium oxide (MAG-OX) 400 mg (241.3 mg magnesium) tablet Take 1 tablet by mouth every afternoon. - ferrous sulfate 325 mg (65 mg iron) tablet Take 325 mg by mouth five times a week. - mecobalamin, vitamin B12, 1,000 mcg chew Take by mouth once daily. - Syringe with Needle, Disp, 3 mL 25 gauge x 1 1 Syringe as directed. - metFORMIN ER (GLUCOPHAGE XR) 500 mg 24 hr tablet TAKE 1 TABLET BY MOUTH EVERY DAY IN THE EVENING WITH MEAL - insulin lispro (HUMALOG KWIKPEN INSULIN) 100 unit/mL Inject 0-10 units three times daily following the sliding scale: If Blood Glucose (mg/dL) is <110 Give 0 units 111-150 Give 0 units 151-200 Give 2 unit 201-250 Give 4 units 251-300 Give 6 units 301-350 Give 8 units 351-400 Give 10 units >400 give 10units and notify provider. - Insulin [place], Disposable, (BD ULTRA-FINE MIN PEN NEEDLE) 32 gauge x 5/32 1 Each three times daily. - blood sugar diagnostic (TradeCardUCH VERIO TEST STRIPS) test strip Use as instructed three times daily - lancets (ONETOUCH DELICA PLUS LANCET) 33 gauge 1 Each three times daily. - Lactobacillus acidophilus (PROBIOTIC ORAL) Take by mouth. - levothyroxine (SYNTHROID) 150 mcg tablet Take 1 tablet by mouth once daily. - Omeprazole 40 mg capsule Take 40 mg by mouth once daily. - FLUoxetine (PROZAC) 20 mg capsule Take 20 mg by mouth once daily. Problem List As Of Date 04/29/2025 Noted Resolved SBO (small bowel obstruction) (HCC) [K56.609] 09/18/2020 Pain in left ankle and joints of left foot [M25*11/01/2020 Pain in right ankle and joints of right foot [M*10/26/2020 Pain in right foot [M79.671] 11/01/2020 Pain in left foot [M79.672] 04/05/2021 IPMN (intraductal papillary mucinous neoplasm) *12/08/2021 12/26/2021 BMI 38.0-38.9,adult [Z68.38] 12/08/2021 Hypertension [I10] 12/08/2021 Gastroesophageal reflux disease without esophag*12/08/2021 Pancreatic cyst [K86.2] 12/09/2021 Chronic pain of left knee [M25.562, G89.29] 12/09/2021 DVT prophylaxis [JFV3164] 12/20/2021 Post-operative pain [G89.18] 12/20/2021 Depression [F32.A] 12/20/2021 Hypothyroidism [E03.9] 12/20/2021 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, Z90.*02/16/2022 Obesity, Class I, BMI 30-34.9 [E66.811] 12/15/2022 Crohn's disease of small intestine with complic*03/27/2023 Small bowel obstruction (HCC) [K56.609] 10/25/2023 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/08/2023 Iron deficiency anemia secondary to inadequate *11/08/2023 Psoriasis [L40.9] 02/18/2025 Encounter Status:Closed by LISA MCNALLY on 04/29/25NoSumma Health Barberton CampusCNOVSPon 33-98-0737DUNDBMQhwuy ([place]) Office ([place]) LAURA STEPHENSON ([id number]) 1960 F Date Time Provider Department 03/13/25 9:20 AM ANA ENRIQUEZ During your visit today, we recorded the following information about you: Temperature Pulse Respiration Blood pressure 97.4 degrees 72/minute 16/minute 121/77 Weight Height 96.2 kg 1.651 m Ana Enriquez MD 03/15/2025 7:36 PM Signed NAME: Laura Stephenson CLINIC NO.: [id number] DATE OF SERVICE: March 13, 2025 (Marguerite) Some elements in this clinic note that are critical to medical decision making have been carefully reviewed and included from a prior clinic note dated: September 05, 2024 (Marguerite) Referring Provider: Ashu Mittal Additional Clinicians involved in Laura Stephenson's care: Alethea Vickers DIAGNOSIS: Thrombocytosis CASE SUMMARY / ASSESSMENT: 64 year old woman with 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 This remains stable today. In the course of her workup she was found to be mildly B12 and mildly iron deficient and she has been on oral supplements since January 2023. Her iron studies and b12 level are normal today. She is also on plaquenil and Otezla for psoriasis. Hyponatremia--Resolved SUMMARIZED PLAN OF CARE: Continue iron and folic acid supplements as well as oral B12 3 weeks each month RTC 24 weeks Labs 1 week before AI Assisted A/P: 1. 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 Status post splenectomy (Z90.81) Chronic thrombocytosis is a known sequela of prior splenectomy; platelet count remains elevated as expected. - No intervention required at this time. 3. Iron deficiency anemia secondary to inadequate dietary iron intake (D50.8) 4. Iron deficiency (E61.1) Iron levels are low, likely due to limited dietary intake of meat and insufficient iron supplementation; however, hemoglobin is stable at 12.9, improved from prior values (11.3 in October 2023 and 9.0 in December 2021), and patient is not currently anemic. - Continue daily iron supplementation. - Educated patient on the difference between multivitamins and iron supplements, emphasizing the importance of adequate iron intake. - Follow-up labs in 24 weeks to reassess iron levels. 5. 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 Anemia due to vitamin B12 deficiency, unspecified B12 deficiency type (D51.9) Vitamin B12 level is within acceptable range (500s); patient is compliant with B12 supplementation regimen. - Continue current B12 supplementation regimen (1 pill once a week and 1 pill daily). 7. Psoriasis (L40.9) - CASE HISTORY: Reverse Chronological Order 10/26/2023 - EUA and pouchoscopy A, B. Pouch, afferent limb and inlet, biopsy: -Active enteritis -Negative for granulomas or dysplasia C. Pouch, body, biopsy: -Chronic mildly active enteritis -Negative for granulomas or dysplasia D. Anus, transitional zone, biopsy: -Predominantly intestinal mucosa with mild active enteritis -Negative for granulomas or dysplasia 12/12/2022 - MRI Pancreas: Postoperative changes distal pancreatectomy with mildly increased size of 1.3 cm cystic lesion in the uncinate process, likely sidebranch IPMN. Decreased postoperative fluid collection and fat necrosis. Hepatic steatosis. 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 Crohn's --s/p 1994, total colectomy, on Entyvio and follows GI - HPI: Updated Visit, March 13, 2025: Patient with a history of splenectomy presents for follow-up. Recent lab results show a B12 level of 500 pg/mL and a sodium level of 134 mmol/L. Iron levels are noted to be low. Hemoglobin is currently 12.9 g/dL, improved from previous values of 11.3 g/dL in October 2023 and 9.0 g/dL in December 2021. Platelet count remains elevated, attributed to prior splenectomy. Patient is currently taking a weekly B12 supplement and a daily multivitamin. She reports occasional missed doses of her vitamins and is unsure if she is taking an iron supplement. She denies significant dietary intake of meat. Patient reports feeling well overall and has recently started exercising, riding a bike 10-15 miles per week. She is semi-retired, working two days a week, and enjoys spending time with her grandchildren, ages 13, 11, and 9. (Today) CBC: - Hemoglobin: 12.9 g/dL - Platelets: Elevated - Sodium: 134 mmol/L - B12: Approximately 500 - Iron: Decreased (October 2023) CBC: - Hemoglobin: 11.3 g/dL (December 2021) CBC: - Hemoglobin: 9.0 g/dL Updated Visit, September 05, 2024: Here with Husb (more content not included)...NormalMer[facility] W Auto Differential panel (Bld)on 10-46-8692Daznuphgq (Bld) [#/Vol]0.09 10*3/uL Normal<0.11CMedina HospitalComment on above:Order Comment: Specimen Type: BLOOD SPECIMEN Ordering Facility: [facility] Address: [address] [place], [place] [address]Qjsonysre By: #### [id number] #### [facility] CLIA [id number] [address] [place] [address] 32905Kmavwlzzy/100 WBC (Bld)1.2 %NormalDayton Osteopathic Hospital Comment on above:Order Comment: Specimen Type: BLOOD SPECIMEN Ordering Facility: [facility] Address: [address] [place], [place] [address]Performed By: #### [id number] #### [facility] CLIA [id number] [address] [place], [place] [address]Akpbvopahsen cell count method Nom (Bld)AutoNormalClevelCape Fear/Harnett HealthComment on above:Order Comment: Specimen Type: BLOOD SPECIMEN Ordering Facility: [facility] Address: [address] [place], [place] [address]Performed By: #### [id number] #### [facility] CLIA [id number] [address] [place] [address] 92148Gekxrsofsuz (Bld) [#/Vol]0.31 10*3/uLNormal<0.46[facility] on above:Order Comment: Specimen Type: BLOOD SPECIMEN Ordering Facility: [facility] Address: [address] [place], [place] [address]Performed By: #### 69248-1 #### [facility] CLIA [id number] [address] [place] [address] 41821Kiwpdbjsmnp/100 WBC (Bld)4.0 %NormalDayton Osteopathic Hospital Comment on above:Order Comment: Specimen Type: BLOOD SPECIMEN Ordering Facility: [facility] Address: [address] [place], [place] [address]Performed By: #### [id number] #### [facility] CLIA [id number] [address] [place] [address] 86733Nkdsybrpsjz distribution width (RBC) [Ratio]14.6 %Normal 11.5-15.0[facility] on above:Order Comment: Specimen Type: BLOOD SPECIMEN Ordering Facility: [facility] Address: [address] [place], [place] [address]Performed By: #### [id number] #### [facility] CLIA [id number] [address] [place] [address] 97786Dlztbjtdbg (Bld) [Volume fraction]39.0 %Khnpfq50.0-46.0 [facility] on above:Order Comment: Specimen Type: BLOOD SPECIMEN Ordering Facility: [facility] Address: [address] [place], [place] [address]Performed By: #### 30626-2 #### [facility] CLIA [id number] [address] [place] [address] 64[address]Bbyvjdizzo (Bld) [Mass/Vol]12.9 g/rIFjjiro07.5-15.5CWestern [facility] Hospital on above:Order Comment: Specimen Type: BLOOD SPECIMEN Ordering Facility: [facility] Address: [address] [place], [place] [address]Performed By: #### 91827-2 #### [facility] CLIA [id number] [address] [place] [address] 00141Yygateth granulocytes (Bld) [#/Vol]10*3/uLNormal<0.10[facility] on above:Order Comment: Specimen Type: BLOOD SPECIMEN Ordering Facility: [facility] Address: [address] [place], [place] [address]Performed By: #### [id number] #### [facility] CLIA [id number] [address] [place] [address] 75614Acaajnpr granulocytes/100 WBC (Bld)0.3 %NormalOhioHealth Southeastern Medical Center on above:Order Comment: Specimen Type: BLOOD SPECIMEN Ordering Facility: [facility] Address: [address] [place], [place] [address]Performed By: #### [id number] #### [facility] [facility] CLIA [id number] [address] [place] [address] 30479Vttsuvjmqst (Bld) [#/Vol]2.01 10*3/uLNormal1.00-4.00[facility] on above:Order Comment: Specimen Type: BLOOD SPECIMEN Ordering Facility: [facility] Address: [address] [place], [place] [address]Performed By: #### 06930-6 #### [facility] CLIA [id number] [address] [place], [place] [address]Jtsmwmcouic/100 WBC (Bld)26.1 %NormalOhioHealth Southeastern Medical Center on above:Order Comment: Specimen Type: BLOOD SPECIMEN Ordering Facility: [facility] Address: [address] [place], [place] [address]Performed By: #### 76127-0 #### [facility] CLIA [id number] [address] [place] [address] 87410BIG (RBC) [Entitic mass]30.2 usNugglu95.0-34.0[facility] on above:Order Comment: Specimen Type: BLOOD SPECIMEN Ordering Facility: [facility] Address: [address] [place], [place] [address]Performed By: #### 38449-0 #### [facility] CLIA [id number] [address] [place] [address] 57402SWEF (RBC) [Mass/Vol]33.1 g/yZZuehcc89.5-36.0[facility] on above:Order Comment: Specimen Type: BLOOD SPECIMEN Ordering Facility: [facility] Address: [address] [place], [place] [address]Performed By: #### 46923-4 #### [facility] CLIA [id number] [address] [place] [address] 17523NEH (RBC) [Entitic vol]91.3 cXUjuelq59.0-100.0[facility] on above:Order Comment: Specimen Type: BLOOD SPECIMEN Ordering Facility: [facility] Address: [address] [place], [place] [address]Performed By: #### 13434-8 #### [facility] CLIA [id number] [address] [place] [address] 66475Yzfcgjdbn (Bld) [#/Vol]0.73 10*3/uLNormal<0.87[facility] on above:Order Comment: Specimen Type: BLOOD SPECIMEN Ordering Facility: [facility] Address: [address] [place], [place] [address]Performed By: #### 29443-7 #### [facility] CLIA [id number] [address] [place] [address] 67252Nxwwwfcuq/100 WBC (Bld)9.5 %NormalDayton Osteopathic Hospital Comment on above:Order Comment: Specimen Type: BLOOD SPECIMEN Ordering Facility: [facility] Address: [address] [place], [place] [address]Performed By: #### 32805-4 #### [facility] CLIA [id number] [address] [place] [address] 42932Cgkbtbwbarr (Bld) [#/Vol]4.53 10*3/uLNormal1.45-7.50[facility] on above:Order Comment: Specimen Type: BLOOD SPECIMEN Ordering Facility: [facility] Address: [address] [place], [place] [address]Performed By: #### 54023-4 #### [facility] CLIA [id number] [address] [place] [address] 47760Wwiroxokyrj/100 WBC (Bld)58.9 %NormalOhioHealth Southeastern Medical Center on above:Order Comment: Specimen Type: BLOOD SPECIMEN Ordering Facility: [facility] Address: [address] [place], [place] [address]Performed By: #### 23185-2 #### [facility] CLIA [id number] [address] [place] [address] 60510Mzuiacbzu RBC (Bld) [#/Vol]10*3/uLNormal<0.01[facility] on above:Order Comment: Specimen Type: BLOOD SPECIMEN Ordering Facility: [facility] Address: [address] [place], [place] [address]Performed By: #### 98769-1 #### [facility] CLIA [id number] [address] [place], [place] [address]Jdrzcptgg RBC/100 WBC (Bld) [Ratio]0.0 /100 WBCNormalCWestern Reserve Hospital on above:Order Comment: Specimen Type: BLOOD SPECIMEN Ordering Facility: [facility] Address: [address] [place], [place] [address]Performed By: #### 80303-7 #### [facility] CLIA [id number] [address] [place], [place] [address]Mcvalfjf mean volume (Bld) [Entitic vol]8.4 fLLow9.0-12.7 [facility] on above:Order Comment: Specimen Type: BLOOD SPECIMEN Ordering Facility: [facility] Address: [address] [place], [place] [address]Performed By: #### 41991-8 #### [facility] CLIA [id number] [address] [place] [address] 55619Wggzasjlu (Bld) [#/Vol]459 10*3/oZUlnc586-917RmqgfdusoOhioHealth Southeastern Medical Center on above:Order Comment: Specimen Type: BLOOD SPECIMEN Ordering Facility: [facility] Address: [address] [place], [place] [address]Performed By: #### 03288-5 #### [facility] CLIA [id number] [address] [place] [address] 04627AEU (Bld) [#/Vol]4.27 10*6/uLNormal3.90-5.20[facility] on above:Order Comment: Specimen Type: BLOOD SPECIMEN Ordering Facility: [facility] Address: [address] [place], [place] [address]Performed By: #### 40014-1 #### [facility] CLIA [id number] [address] [place] [address] 79805VYA (Bld) [#/Vol]7.69 10*3/uLNormal3.70-11.00[facility] on above:Order Comment: Specimen Type: BLOOD SPECIMEN Ordering Facility: [facility] Address: [address] [place], [place] [address]Performed By: #### 86380-8 #### [facility] CLIA [id number] [address] [place], [place] [address]Lhjzocywpnevh metabolic 2000 panelon 17-90-0730Pdarsyi [Mass/Vol]4.1 g/dLNormal3.9-4.9CWestern [facility] on above:Order Comment: Specimen Type: BLOOD SPECIMENOrdering Facility: [facility] Address:[address] [place], [place] [address]Performed By: #### 49990- 8 ####[facility] [id number] [place], [place] [address]TRY [Catalytic activity/Vol]78 U/ZKzmtmm01-964KswzojzpiOhioHealth Southeastern Medical Center on above:Order Comment: Specimen Type: BLOOD SPECIMENOrdering Facility: [facility] Address:[address] [place], [place] [address]Performed By: #### 10529-1 ####[facility] [id number] [place], [place] [address]IZC [Catalytic activity/Vol]13 U/LNormal7-38[facility] on above:Order Comment: Specimen Type: BLOOD SPECIMENOrdering Facility: [facility] Address:[address] [place], [place] [address]Performed By: #### 35996- 8 ####[facility] [id number] [facility] [place] [address]Vyequ gap [Moles/Vol]10 mmol/LNormal8-15[facility] on above:Order Comment: Specimen Type: BLOOD SPECIMENOrdering Facility: [facility] Address:[address] [place], [place] [address]Performed By: #### 51354-4 ####[facility] [id number] [place], [place] [address]NUE [Catalytic activity/Vol]18 U/MReddgh94-49CwkgxbyagOhioHealth Southeastern Medical Center on above:Order Comment: Specimen Type: BLOOD SPECIMENOrdering Facility: [facility] Address:[address] [place], [place] [address]Performed By: #### 57498-2 ####[facility] [id number] [facility] [place] [address] Bilirubin [Mass/Vol]0.3 mg/dLNormal0.2-1.3CWestern [facility] Hospital on above:Order Comment: Specimen Type: BLOOD SPECIMENOrdering Facility: [facility] Address:[address] [place], [place] [address]Performed By: #### 64299-8 ####[facility] [id number] [facility], [place] [address]Kiitgqw [Mass/Vol]10.0 mg/dLNormal8.5-10.2CWestern [facility] on above:Order Comment: Specimen Type: BLOOD SPECIMENOrdering Facility: [facility] Address:[address] [place], [place] [address]Performed By: #### 63406-9 ####[facility] [id number] [facility] [place], [place] [address]Wavbqcfg [Moles/Vol]100 mmol/ALgjjph52-430FczqmcvcoOhioHealth [facility]heastern Medical Center on above: Order Comment: Specimen Type: BLOOD SPECIMENOrdering Facility: [facility] Address:[address] [place], [place] [address]Performed By: #### 30514- 8 ####[facility] [id number] [facility] [place] [address]TS6 [Moles/Vol]24 mmol/SVxuboh20-12LnjkrpfxyOhioHealth [facility] Center on above:Order Comment: Specimen Type: BLOOD SPECIMENOrdering Facility: [facility] Address:[address] [place], [place] [address]Performed By: #### 57363-0 ####[facility]IA [id number] [place], [place] [address]Akyqwgxdok [Mass/Vol]0.69 mg/dL Normal0.58-0.96[facility] on above:Order Comment: Specimen Type: BLOOD SPECIMENOrdering Facility: [facility] Address:[address] [place], [place] [address]Performed By: #### 65051-7 ####[facility]IA [id number] [place], [place] [address]hRITcg SerPlBld CKD-EPI 181791 mL/min/1.73m???Normal>=60 [facility] on above:Order Comment: Specimen Type: BLOOD SPECIMENOrdering Facility: [facility] Address:[address] [place], [place] [address]Result Comment: Estimated Glomerular Filtration Rate (eGFR) is calculated using the 2020 CKD-EPI creatinine equation. This equation utilizes serum creatinine, sex, and age as parameters. The creatinine assay has traceable calibration to isotope dilution-mass spectrometry. Refer to KDIGO guidelines for clinical interpretation. In patients with unstable renal function, e.g. those with acute kidney injury, the eGFR may not accurately reflect actual GFR.Performed By: #### 45284-0 ####[facility] [id number] [place], [place] [address]Kpeqjpx [Mass/Vol]120 mg/rXEzra88-91VfwqhiydjOhioHealth Southeastern Medical Center on above:Order Comment: Specimen Type: BLOOD SPECIMENOrdering Facility: [facility] Address:[address] [place], [place] [address]Result Comment: The [place] Diabetes Association (ADA) provides guidance for cutoff values for fast ing glucose and random glucose. The ADA defines fasting as no [...] Standards of Medical Care in Diabetes 2016, [place] Diabetes Association. Diabetes Care. 2016.39(Suppl 1).Performed By: #### 48298-4 ####[facility]IA [id number] [place], [place] [address]Myvhlycui [Moles/Vol]5.1 mmol/LNormal3.7-5.1CWestern [facility] Hospital on above:Order Comment: Specimen Type: BLOOD SPECIMENOrdering Facility: [facility] Address:[address] [place], [place] [address]Performed By: #### 66659-2 ####[facility]CLIA [id number] [place], [place] [address]Macqoac [Mass/Vol]7.0 g/dLNormal6.3-8.0[facility] on above:Order Comment: Specimen Type: BLOOD SPECIMENOrdering Facility: [facility] Address:[address] [place], [place] [address]Performed By: #### 39673- 8 ####[facility] [id number] [place], [place] [address]Rnuqyq [Moles/Vol]134 mmol/YJed727-750KvyavfpyvOhioHealth Southeastern Medical Center on above:Order Comment: Specimen Type: BLOOD SPECIMENOrdering Facility: [facility] Address:[address] [place], [place] [address]Performed By: #### 32971-2 ####[facility]CLIA [id number] [place], [place] [address]Falf nitrogen [Mass/Vol]10 mg/dLNormal7-21[facility] on above:Order Comment: Specimen Type: BLOOD SPECIMENOrdering Facility: [facility] Address:[address] [place], [place] [address]Performed By: #### 75701-3 ####[facility]CLIA [id number] [place], [place] [address]Dxjaphjx SerPl-mCncon 45-98-5854Nbbweoeg [Mass/Vol]55.3 ng/bPCtrwgv48.7-205.1CWestern [facility] on above:Order Comment: Specimen Type: BLOOD SPECIMEN [facility] Facility: [facility] Address: [address] [place], [place] [address]Performed By: #### 51857-6 #### [facility] CLIA [id number] [address] [place] [address]Ypskkv SerPl-mCncon 54-44-7756Stlkzo [Mass/Vol]ng/mLNormal>4.7 [facility] on above:Order Comment: Specimen Type: BLOOD SPECIMEN Order[facility] Facility[facility] Address: [address] [place], [place] [address]Result Comment: A result of > 20 ng/mL is not necessarily indicative of a pathologic or treatable condition: it reflects a limitation of the test methodology. Assay reference range: 4.8 to 24.2 ng/mL. Suitable for detection of folate deficiency. Reference: Folate III (Folate III) [package insert V 1.0 Mexican]. [facility], [place], [place]: May 2015.Performed By: #### 78678-1 #### [facility] CLIA [id number] [address] [place] [address]Hyht and Iron binding capacity panelon 20-03-8693Ecin [Mass/Vol]58 ug/qQGfjhrc60-641CzvypzmgwOhioHealth Southeastern Medical Center on above:Order Comment: Specimen Type: BLOOD SPECIMEN [facility] Address: [address] [place], [place] [address]Performed By: #### 29957-6 #### [facility] CLIA [id number] [address] [place], [place] [address]Yvsm binding capacity [Mass/Vol]383 ug/xQHdcmyk162-394 [facility] on above:Order Comment: Specimen Type: BLOOD SPECIMEN [facility] Address: [address] [place] [address]Ihujmajcd By: #### 71590-5 #### [facility] CLIA [id number] [address] [place] [address]Bhkh/TIBC [Molar ratio]15.1 %Bhpkun26.0-57.0[facility] on above:Order Comment: Specimen Type: BLOOD SPECIMEN [facility]: [facility] Address: [address] [place] [address]Ebtkgmsab By: #### 80076-7 #### [facility] CLIA [id number] [address] [place] [address] 640[address]Lkz B12 SerPl-mCncon 05-75-7563Xwuroicfu (Vitamin B12) [Mass/Vol]806 pg/pGIdeuqi942-1066HncbhgkqgWestern Reserve Hospital on above: Order Comment: Specimen Type: BLOOD SPECIMEN [facility] Address: [address] [place] [address] 835[address]Ugemwljui By: #### 85290-3 #### [facility] CLIA [id number] [address] [place] [address]59[address]PYQOkl 72-62-7335ZBNRCzkvbelec (GASTMN) LAURA STEPHENSON ([id number]) 1960 F Date Time Provider Department 01/26/25 TOMASA WAKEFIELD During your visit today, we recorded the following information about you: Tomasa Wakefield APRN.CNP 01/26/2025 12:03 PM Signed Called her derm office to get clarification on request to start IL23 - Dr. Alethea Vickers @ [facility] - [phone] - left message requesting call back with my work cell number provided. Tomasa Wakefield APRN.CNP 01/26/2025 12:31 PM Signed Got call back from nurse in office. She will send message to provider to clarify. States pt is also taking plaquenil which I do not have on our end and unsure who is prescribing. She will call me back when she has more info. Tomasa Wakefield APRN.CNP 02/04/2025 11:03 AM Signed Reviewed with Dr. Mittal. Ok for change to Skyrizi. Will call derm and let her know and then make sure pt is okay with that before moving forward. . Tomasa Wakefield APRN.CNP 02/09/2025 3:54 PM Signed Called MD back. Left voicemail. Will wait to hear from her before discussing with pt and starting the process. Tomasa Wakefield APRN.CNP 02/13/2025 7:57 AM Signed Spoke with 02/12. OK to start Skyrizi. She can continue Otezla until her next follow up. Will discuss with pt via phone next week before ordering. Tomasa Wakefield APRN.CNP 02/17/2025 5:19 PM Signed Called pt. Left voicemail. Advised her to call the office tomorrow AM so we can try to touch base. Tomasa Wakefield APRN.CNP 02/18/2025 8:59 AM Signed New Skyrizi start. Will be off Entyvio once starting Skyrizi. Therapy plan entered for Catarina. Tomasa Wakefield APRN.CNP 02/18/2025 9:01 AM Signed Addended by: TOMASA WAKEFIELD on: 02/18/2025 09:01 AM Modules accepted: Nnamdi Childress 02/18/2025 1:49 PM Signed Received communication from [facility] of new start Skyrizi therapy. Patient has been enrolled into the [employer] Portal. A patient assistance application will be initiated once the induction dosing has been completed since patient has a primary payer of medicare as well as a secondary coverage. Routing update to care team. Nika Winters [employer] Navigator Tomasa Wakefield APRN.CNP 02/19/2025 8:57 AM Signed Addended by: TOMASA WAKEFIELD on: 02/19/2025 08:57 AM Modules accepted: Janell Naqvi RN 02/19/2025 9:39 AM Signed Attempted to reach pt to notify she has been approved to start Skyrizi infusions. No answer. Left message notifying pt that new medication has been approved, to contact [place] for scheduling, and [facility] Attempted to reach [facility] at [phone] to request discharge from services. No answer. Received voicemail. Sent message to Senior Metal Pourer, Diana Mckeon, requesting [place] be [place] [facility] [place] [facility] [place]vio. 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 - apremilast (OTEZLA) 30 mg tablet Apremilast (Otezla) 30 mg tablet Active 30 MG PO .once daily June 09, 2024 1:00am - rosuvastatin (CRESTOR) 5 mg tablet Take 1 tablet by mouth once daily. - folic acid 1 mg tablet TAKE 1 TABLET BY MOUTH EVERY DAY - diphenoxylate-atropine (LOMOTIL) 2.5-0.025 mg per tablet TAKE 1 TABLET BY MOUTH 3 OR 4 TIMES DAILY NEEDED - atenolol (TENORMIN) 25 mg tablet Take 1 tablet by mouth once daily. - spironolactone (ALDACTONE) 25 mg tablet Take 1 tablet by mouth every afternoon. - magnesium oxide (MAG-OX) 400 mg (241.3 mg magnesium) tablet Take 1 tablet by mouth every afternoon. - ferrous sulfate 325 mg (65 mg iron) tablet Take 325 mg by mouth five times a week. - mecobalamin, vitamin B12, 1,000 mcg chew Take by mouth once daily. - Syringe with Needle, Disp, 3 mL 25 gauge x 1 1 Syringe as directed. - metFORMIN ER (GLUCOPHAGE XR) 500 mg 24 hr tablet TAKE 1 TABLET BY MOUTH EVERY DAY IN THE EVENING WITH MEAL - insulin lispro (HUMALOG KWIKPEN INSULIN) 100 unit/mL Inject 0-10 units three times daily following the sliding scale: If Blood Glucose (mg/dL) is <110 Give 0 units 111-150 Give 0 units 151-200 Give 2 unit 201-250 Give 4 units 251-300 Give 6 units 301-350 Give 8 units 3 (more content not included)...NormalFulton [facility] POSTPROC EVALon 01-13-2025 ANES POSTPROC EVALHNO ID: [id number] Author: CLIFTON HOWARD MD Service: ? Author Type: Anesthesiologist Type: Anesthesia Postprocedure Evaluation Filed: 01/13/2025 09:53 Note Text: POST ANESTHESIA EVALUATION NOTE : 1960 Procedure Summary Date: 01/13/25 Room / Location: Gastroenterology Anesthesia Start: 837 Anesthesia Stop: 903 Procedure: POUCHOSCOPY Diagnosis: Crohn's disease of small intestine with complication (HCC) (History of colectomy) Scheduled Providers: Ashu Mittal MD; Lola Moran, EXECUTIVE KITCHEN MANAGER.PERSONALIZED LIVING MANAGER NURSE; Clifton Howard MD Responsible Provider: Clifton Howard MD Anesthesia Type: general ASA Status: Not recorded Anesthesia Type: general Airway Type: supplemental O2 Last Vitals Vitals Value Taken Time BP 129/69 01/13/25 0920 Temp 36.4 ?C (97.5 ?F) 01/13/25 09 Pulse 69 01/13/25 0920 Resp 16 01/13/25 09 SpO2 99 % 01/13/25919 Post Anesthesia Patient Status Patient Evaluation: PACU. PACU/ICU Patient Condition: stable. Anticipated Disposition: phase 2 then home. Neurological Status: aware and responsive. Pulmonary Status: breathing comfortably on room air Airway Control: returned to baseline unsupported. Cardiovascular Status: stable. Pain Management: clinically adequate Postoperative Hydration: acceptable. Intraoperative Events: no significant anesthesia events Post Operative Nausea/Vomiting Status: no significant post operative nausea or vomiting Recommendation: continue current plan of care. Anesthesia Observations No Documentation SIGNATURE: Clifton Howard MD PATIENT NAME: Laura Stephenson DATE: January 13, 2025 TIME: 9:53 AM CSN: [id number]h [facility] PRE-OPon 25-12-1808CHTX PRE-OPHNO ID: [id number] Author: CLIFTON HOWARD MD Service: ? Author Type: Anesthesiologist Type: Anesthesia Preprocedure Evaluation Filed: 01/13/2025 09:54 Note Text: ANESTHESIOLOGY DAY OF SURGERY NOTE : 1960 Procedure Information Anesthesia Start Date/Time: 01/13/25 0838 Scheduled providers: Ashu Mittal MD; Lola Moran APRN.PERSONALIZED LIVING MANAGER NURSE; Clifton Howard MD Procedure: POUCHOSCOPY Location: Gastroenterology Estimated body mass index is 33.95 kg/m? as calculated from the following: Height as of this encounter: 165.1 cm (5' 5 ). Weight as of this encounter: 92.5 kg (204 lb). Most recent hematocrit and potassium results: Hematocrit 40.7 08/29/2024 Potassium 4.7 08/29/2024 Relevant Problems CARDIO (+) Hypertension ENDO (+) Hypothyroidism GI (+) Gastroesophageal reflux disease without esophagitis I - PHYSICAL EVALUATION AIRWAY Patient intubated: No. Tracheostomy tube not present Mallampati: II. TM distance: >3 FB. Neck ROM: full ROM without neurological symptoms. Mouth opening: adequate. Short neck: no. Thick neck: no DENTAL Normal dental observations. Dental findings: teeth intact. II - ANESTHESIA PLAN ASA Score: 3 Anesthetic Plan: general Airway type: supplemental O2 The patient is not a current smoker. NPO Status: adequate Beta Shazia Monitoring Plan Monitoring plan: standard ASA. Post Procedure Analgesic Plan Informed Consent Anesthetic risks, benefits, alternatives, personnel and consent discussed: yes. Patient / Responsible Libertarian agrees to proceed: yes Patient / Surrogate agrees to blood products: blood products not planned Potential Anesthesia issues that may suggest increased risk of complications or contraindication to planned procedure: none. No vitals data found for the desired time range. Outpatient Medications as of 01/13/2025 Medication Sig - rosuvastatin (CRESTOR) 5 mg tablet Take 1 tablet by mouth once daily. - folic acid 1 mg tablet TAKE 1 TABLET BY MOUTH EVERY DAY - diphenoxylate-atropine (LOMOTIL) 2.5-0.025 mg per tablet TAKE 1 TABLET BY MOUTH 3 OR 4 TIMES DAILY NEEDED - vedolizumab (ENTYVIO) 300 mg injection Infuse 300 mg at week 0, 2, 6, then every 8 weeks thereafter. - ergocalciferol 50,000 unit capsule (VITAMIN D2, DRISDOL) Take 1 capsule by mouth one time a week. - Cholecalciferol, Vitamin D3, (VITAMIN D) 25 mcg (1,000 unit) cap Take 1 capsule by mouth once daily. - atenolol (TENORMIN) 25 mg tablet Take 1 tablet by mouth once daily. - spironolactone (ALDACTONE) 25 mg tablet Take 1 tablet by mouth every afternoon. - magnesium oxide (MAG-OX) 400 mg (241.3 mg magnesium) tablet Take 1 tablet by mouth every afternoon. - ferrous sulfate 325 mg (65 mg iron) tablet Take 325 mg by mouth five times a week. - mecobalamin, vitamin B12, 1,000 mcg chew Take by mouth once daily. - Syringe with Needle, Disp, 3 mL 25 gauge x 1 1 Syringe as directed. - metFORMIN ER (GLUCOPHAGE XR) 500 mg 24 hr tablet TAKE 1 TABLET BY MOUTH EVERY DAY IN THE EVENING WITH MEAL - insulin lispro (HUMALOG KWIKPEN INSULIN) 100 unit/mL Inject 0-10 units three times daily following the sliding scale: If Blood Glucose (mg/dL) is <110 Give 0 units 111-150 Give 0 units 151-200 Give 2 unit 201-250 Give 4 units 251-300 Give 6 units 301-350 Give 8 units 351-400 Give 10 units >400 give 10units and notify provider. - Insulin [place], Disposable, (BD ULTRA-FINE MIN PEN NEEDLE) 32 gauge x 5/32 1 Each three times daily. - blood sugar diagnostic ([employer] VERIO TEST STRIPS) test strip Use as instructed three times daily - lancets (ONETOUCH DELICA PLUS LANCET) 33 gauge 1 Each three times daily. - vedolizumab (ENTYVIO) 300 mg injection Infuse 300 mg every 4 weeks. - Lactobacillus acidophilus (PROBIOTIC ORAL) Take by mouth. - levothyroxine (SYNTHROID) 150 mcg tablet Take 1 tablet by mouth once daily. - Omeprazole 40 mg capsule Take 40 mg by mouth once daily. - FLUoxetine (PROZAC) 20 mg capsule Take 20 mg by mouth once daily. Facility-Administered Medications as of 01/13/2025 Medication Dose Route Frequency - lidocaine (PF) 10 mg/mL (1 %) 1-2 mg injection (XYLOCAINE) 0.1-0.2 mL INTRADERMAL PRN - [COMPLETED] sodium phosphate-sodium bisphosphate 133 mL enema (FLEET) 133 mL RECTAL ONCE - [COMPLETED] lidocaine urojet 2 % topical gel (GLYDO) MUCOUS MEMBRANE X (OR/PROCEDURE) PRN I have interviewed and examined the patient. I have reviewed the medical record and/or the pre-anesthesia evaluation, pertinent labs, and test results. This contains updated information obtained within 48 hours of Surgery/Procedure. SIGNATURE: Clifton Howard MD PATIENT NAME: Laura Stephenson DATE: January 13, 2025 TIME: 9:54 AM CSN: [id number] Health Barberton CampusGLUCOSE, BLOOD (POC) on [id number] [Mass/Vol]112 mg/nDRpvwzjxw51 - 99 mg/dLUniversity Hospitals Lake [facility] Comment on above:Location:[facility], [address] [place] [address] The Accu-Chek Inform II glucose meter has not been approved for testing on patients receiving intensive medical intervention or therapy and results from this point of care glucose test should not be used for patient management decisions in these cases. Inaccurate results may also occur from other interfering factors, such as N-acetylcysteine (blood concentrations of greater than 5mg/dL), galactose, extremes of hematocrit (<10 or >65), or high doses of ascorbic acid (vitamin C) greater than 3mg/dL. Consider alternate testing mechanisms (e.g. core lab, blood gas instrument) in the above situations. Interpretation and review of laboratory resultsAbnoHighland District HospitalGlucose [Mass/Vol]110 mg/iHEldvbnsy90 - 99 mg/dLUniversity Hospitals Lake West Medical CenterComment on above:Location:[facility], [address] [place] [address], [facility] The Accu-Chek Inform II glucose meter has not been approved for testing on patients receiving intensive medical intervention or therapy and results from this point of care glucose test should not be used for patient management decisions in these cases. Inaccurate results may also occur from other interfering factors, such as N-acetylcysteine (blood concentrations of greater than 5mg/dL), galactose, extremes of hematocrit (<10 or >65), or high doses of ascorbic acid (vitamin C) greater than 3mg/dL. Consider alternate testing mechanisms (e.g. core lab, blood gas instrument) in the above situations. Interpretation and review of laboratory resultsAbSelect Medical Cleveland Clinic Rehabilitation Hospital, Edwin ShawING PROTung [id number] PROSOLITARIO ID: [id number] Author: BROOKE NERI RN Service: ? Author Type: Registered Nurse Type: Nursing Progress Note Filed: 01/13/2025 09:06 Note Text: AMBULATORY PATIENT EDUCATION NOTE TOPIC: GI PROCEDURES: pouchoscopy READINESS TO LEARN INSTRUCTION PROVIDED TO: Patient, readness to learn accessed prior to procedure COGNITIVE ABILITY: Alert and oriented PTED MOTIVATION TO LEARN: Interested FAMILY SUPPORT: High - Very involved in pt care IPATIENT LEARNS BEST BY: Individual Instruction FACTORS AFFECTING LEARNING: None PHYSICAL LIMITATIONS AFFECTING LEARNING: None LEARNING RESPONSE METHOD OF INSTRUCTION: Individual instruction PATIENT / FAMILY RESPONSE: Verbalizes understanding of: WORSENING CONDITION-Signs and symptoms of a worsening condition that warrant a call to the physician FOLLOW-UP PLAN: Complete - No need for follow-up SUPPLEMENTAL MATERIAL: Procedure Discharge Instructions REFERRAL (RECOMMENDATION): None Electronically Signed By: Jamila KinneySumma Health Barber[facility] ID: [id number] Author: HANNAH WILSON RN Service: ? Author Type: Registered Nurse Type: Nursing Progress Note Filed: 01/13/2025 08:08 Note Text: PRE OP LEARNING ASSESSMENT PROCEDURE/SURGERY: GI PROCEDURES: pouchoscopy READINESS TO LEARN COGNITIVE ABILITY: Alert and oriented MOTIVATION TO LEARN: Interested FAMILY SUPPORT: Moderate - Family present but overwhelmed PATIENT LEARNS BEST BY: Individual Instruction Verbal Instruction FACTORS AFFECTING LEARNING: None PHYSICAL LIMITATIONS AFFECTING LEARNING: None Electronically Signed By: Hannah Wilson RN In Department: [facility]OLOGY [facility]The [facility] [id number] Gastrointestinal Endoscopy Patient Name: Laura Stephenson Procedure Date: 01/13/2025 8:21 AM Date of : 1960 Admit Type: Outpatient Age: 64 Room: [address] Gender: Female Note Status: Finalized Attending MD: Ashu Mittal MD, [id number] Procedure: Pouchoscopy Indications: History of colectomy, Inflammatory bowel disease Providers: Ashu Mittal MD Patient Profile: This is a 64 year old female. Referring Physician: Kate Grier (Referring MD) Medicines: Monitored Anesthesia Care Complications: No immediate complications. Requesting Provider: Procedure: Pre-Anesthesia Assessment: - Prior to the procedure, a History and Physical was performed, and patient medications and allergies were reviewed. The patient is competent. The risks and benefits of the procedure and the sedation options and risks were discussed with the patient. All questions were answered and informed consent was obtained. Patient identification and proposed procedure were verified by the physician in the pre-procedure area. Mental Status Examination: alert and oriented. Airway Examination: normal oropharyngeal airway and neck mobility. Respiratory Examination: clear to auscultation. CV Examination: normal. Prophylactic Antibiotics: The patient does not require prophylactic antibiotics. Prior Anticoagulants: The patient has taken no anticoagulant or antiplatelet agents. ASA Grade Assessment: II - A patient with mild systemic disease. After reviewing the risks and benefits, the patient was deemed in satisfactory condition to undergo the procedure. The anesthesia plan was to use monitored anesthesia care (MAC). Immediately prior to administration of medications, the patient was re-assessed for adequacy to receive sedatives. The heart rate, respiratory rate, oxygen saturations, blood pressure, adequacy of pulmonary ventilation, and response to care were monitored throughout the procedure. The physical status of the patient was re-assessed after the procedure. After obtaining informed consent, the endoscope was passed under direct vision. Throughout the procedure, the patient's blood pressure, pulse, and oxygen saturations were monitored continuously. The Endoscope was introduced through the ileoanal anastomosis via the anus and advanced to the beto-terminal ileum. The procedure was performed without difficulty. The patient tolerated the procedure well. The quality of the bowel preparation was fair. [facility] Pouchoscopy Moderate Sedation: MAC anesthesia was administered by the anesthesia team. Findings: Patient is status-post total colectomy with an ileal pouch-anal anastomosis. There was a rectal cuff beginning at at 1 cm from the anal verge, characterized by healthy appearing mucosa. The cuff extended 2 cm in length. Biopsies were taken with a cold forceps for histology. Diffuse inflammation characterized by erythema and loss of vascularity was found in the ileoanal pouch. The inflammation was graded as Pouchitis Disease Activity Index (Endoscopic) Score 2. The pouch measured roughly 17cm in length. The pouch was diffusely erythematous (>35-40%), but there was no evidence of erosions/ulcerations or mucosal breaks Biopsies were taken with a cold forceps for histology. Localized inflammation, severe and characterized by erosions, erythema, friability and pseudopolyps was found in the pouch inlet. Nearly 75% of the pouch inlet was erythematous with pseudopolyps, involving circumferentially the pouch inlet. Stool obscured much of the visulization, but the inlet was narrowed without being strictured allowing for the easy passage of the upper GI scope. The pre-pouch ileum showed evidence of inflammation but no longer had erosions/ulcerations. Biopsies were taken with a cold forceps for histology. There was evidence of some overall dilation of the pre-pouch i (more content not included)...PROVATIONDrakesville ClinicRadiology Study observation (narrative)[facility] CenterPathology biopsy report Martell (Tiss) on [id number] DISCLAIMERNormalCMedina HospitalComment on above:Order Comment: Specimen Type: TISSUE SPECIMENOrdering Facility: [facility] Address: [address] [place], [place] [address]Eldwls Comment: Laboratory Developed Test (LDT) Disclaimer: Performance characteristics of immunohistochemical, immunofluorescent, and chromogenic in-situ hybridization tests have been determined by the performing laboratory within [facility]'s [facility] Cowan Pathology and Laboratory Medicine Department ([facility], [facility], [facility], [facility], [facility], [facility], or ) in a manner consistent with CLIA requirements. One or more of these tests may not have been cleared or approved by the FDA. [facility] is regulated under CLIA as qualified to perform high- complexity testing. These tests are used for clinical purposes. These should not be regarded asinvestigational or for research. Positive and negative controls stain appropriately.Performed By: #### 26390-2 ####MARIANO LABORATORYCLIA [id number] [address] LABCLIA [id number] [place] [id number] [facility] CENTERCASE REPORTNoMorrow County Hospital on above:Order Comment: Specimen Type: TISSUE SPECIMENOrdering Facility: [facility] Address: [address] [place], [place] [address]Result Comment: Surgical Pathology Report Case: [id number] Authorizing Provider: Ashu Mittal MD Collected: 01/13/2025 08:48 AM Ordering Location: Gastroenterology Received: 01/13/2025 01:10 PM Pathologist: Yordan Varner MD Specimens: A) - Small Bowel, Ileum, Biopsy, r/o IBD B) - Pouch, Biopsy, r/o IBD C) - Rectum, Biopsy, r/o IBDPerformed By: #### 34651-3 ####MARIANO LABORATORYCLIA [id number] [address] LABCLIA [id number] [address]FINAL DIAGNOSISNoMorrow County Hospital on above:Order Comment: Specimen Type: TISSUE SPECIMENOrdering Facility: [facility] Address: [address] [place], [place] [id number] Comment: A. Ileum, pre-pouch, biopsy: - Chronic moderately active enteritis, negative for granulomas, pyloric gland metaplasia, or dysplasia. B. Pouch, biopsy: - Chronic moderately active enteritis, negative for granulomas, pyloric gland metaplasia, or dysplasia. C. Rectal cuff, biopsy: - Chronic mildly active proctitis, negative for granulomas or dysplasia. JEL 01/14/2025 at 0931 EDTPerformed By: #### 03541-1 ####MARIANO LABORATORYCLIA [id number] [address] LABCLIA [id number] [place] [id number] [facility] on above: Order Comment: Specimen Type: TISSUE SPECIMENOrdering Facility: [facility] Address: [address] [place], [place] [address]Result Comment: Diagnostic interpretation performed at: [facility], [address] [place] [id number] CLIA# [id number] Noc Analyst: KEHINDE Vannerformed By: #### 26709-8 ####TATUMS LABORATORYCLIA [id number] [address] LABCLIA [id number] [address] on above:Order Comment: Specimen Type: TISSUE SPECIMENOrdering Facility: [facility] Address: [address] [place], [place] [address]Result Comment: A. Small Bowel, Ileum, Biopsy Received in formalin are multiple pieces of [place], soft tissue aggregating to 1.2 x 0.3 x 0.2 cm. Totally submitted in one cassette. B. Pouch, Biopsy Received in formalin are multiple pieces of [place], soft tissue aggregating to 1.6 x 0.3 x 0.2 cm. Totally submitted in one cassette. C. Rectum, Biopsy Received in formalin are multiple pieces of [place], soft tissue aggregating to 1.4 x 0.2 x 0.2 cm. Totally submitted in one cassette. January 13, 2025 1:41 PM Gross examination performed at [facility], [address] [place], [place] [address]Performed By: #### 26309-3 ####TATUMS LABORATORYCLIA [id number] [place], [place] [address] [place] [address] LABCLIA [id number] [address] [place] [address] [facility] MEDICAL CENTERPouchoscopyon [id number] Gastrointestinal Endoscopy Patient Name: Laura Stephenson Procedure Date: 01/13/2025 8:21 AM Date of : 1960 Admit Type: Outpatient Age: 64 Room: [address] Gender: Female Note Status: Finalized Attending MD: Ashu Mittal MD, [id number] Procedure: Pouchoscopy Indications: History of colectomy, Inflammatory bowel disease Providers: Ashu Mittal MD Patient Profile: This is a 64 year old female. Referring Physician: Kate Grier (Referring MD) Medicines: Monitored Anesthesia Care Complications: No immediate complications. Requesting Provider: Procedure: Pre-Anesthesia Assessment: - Prior to the procedure, a History and Physical was performed, and patient medications and allergies were reviewed. The patient is competent. The risks and benefits of the procedure and the sedation options and risks were discussed with the patient. All questions were answered and informed consent was obtained. Patient identification and proposed procedure were verified by the physician in the pre-procedure area. Mental Status Examination: alert and oriented. Airway Examination: normal oropharyngeal airway and neck mobility. Respiratory Examination: clear to auscultation. CV Examination: normal. Prophylactic Antibiotics: The patient does not require prophylactic antibiotics. Prior Anticoagulants: The patient has taken no anticoagulant or antiplatelet agents. ASA Grade Assessment: II - A patient with mild systemic disease. After reviewing the risks and benefits, the patient was deemed in satisfactory condition to undergo the procedure. The anesthesia plan was to use monitored anesthesia care (MAC). Immediately prior to administration of medications, the patient was re-assessed for adequacy to receive sedatives. The heart rate, respiratory rate, oxygen saturations, blood pressure, adequacy of pulmonary ventilation, and response to care were monitored throughout the procedure. The physical status of the patient was re-assessed after the procedure. After obtaining informed consent, the endoscope was passed under direct vision. Throughout the procedure, the patient's blood pressure, pulse, and oxygen saturations were monitored continuously. The Endoscope was introduced through the ileoanal anastomosis via the anus and advanced to the beto-terminal ileum. The procedure was performed without difficulty. The patient tolerated the procedure well. The quality of the bowel preparation was fair. [facility] Pouchoscopy Moderate Sedation: MAC anesthesia was administered by the anesthesia team. Findings: Patient is status-post total colectomy with an ileal pouch-anal anastomosis. There was a rectal cuff beginning at at 1 cm from the anal verge, characterized by healthy appearing mucosa. The cuff extended 2 cm in length. Biopsies were taken with a cold forceps for histology. Diffuse inflammation characterized by erythema and loss of vascularity was found in the ileoanal pouch. The inflammation was graded as Pouchitis Disease Activity Index (Endoscopic) Score 2. The pouch measured roughly 17cm in length. The pouch was diffusely erythematous (>35-40%), but there was no evidence of erosions/ulcerations or mucosal breaks Biopsies were taken with a cold forceps for histology. Localized inflammation, severe and characterized by erosions, erythema, friability and pseudopolyps was found in the pouch inlet. Nearly 75% of the pouch inlet was erythematous with pseudopolyps, involving circumferentially the pouch inlet. Stool obscured much of the visulization, but the inlet was narrowed without being strictured allowing for the easy passage of the upper GI scope. The pre-pouch ileum showed evidence of inflammation but no longer had erosions/ulcerations. Biopsies were taken with a cold forceps for histology. There was evidence of some overall dilation of the pre-pouch ileum. Impression: - Rectal cuff with healthy appearing mucosa seen. Biopsied. - Improved inflammation on limited views of the pouch, with clear improvement in the pre-pouch ileum - The pouch inlet was stable, showing no clear stricture or stenosis, but narrowed with circumferential inflammation as in prior scopes. Estimated Blood Loss: Estimated blood loss: none. Recommendation: - The patient will be observed post-procedure, until all discharge criteria are met. - Patient has a contact number available for emergencies. The signs and symptoms of potential delayed complications were discussed with the patient. Return to normal activities tomorrow. Written discharge instructions were provided to the patient. - Advance diet as tolerated today. - Continue present medications. - Repeat post-surgical lower GI endoscopy date to be determined after pending pathology results are reviewed to assess disease activity. - Return to GI clinic at appointment to be scheduled. Atten (more content not included)...NormalM[facility]letown [facility] [id number] Visit ([facility]) LAURA STEPHENSON ([id number]) 1960 F Date Time Provider Department 12/19/24 4:15 PM THERON HARRIS During your visit today, we recorded the following information about you: Temperature Pulse Blood pressure Weight 98 degrees 57/minute 137/87 92.8 kg Height 1.651 m Mandy Aguirre 12/20/2024 1:02 PM Signed What is the reason for your visit today? est Who is your referring physician? Cherri Krishna Are you having poor oral intake? NO Have you had unintentional weight loss of 15 lbs/7 Kg in the last 3-6 months? 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 Heart Reg Breathing comfortably on RA Direct review of MRI notable for SB-IPMN without worrisome features in the remnant pancreas A/P: IPMN, no worrisome features Plan for MRI pancreas in 1 year Medical Decision Making: Problems: Low: Stable chronic illness Data: Unique test result(s) reviewed: 1 Unique test(s) ordered: 1 Medical Decision Making Level: 3 - Low Theron Harris MD Allergies As of Date: 12/19/2024 Noted Allergy Reaction AZITHROMYCIN 11/23/2012 16 - Unknown METRONIDAZOLE 03/12/2003 9 - Itching Comments: Itching and redness NAPROXEN 03/12/2003 PENICILLINS 03/12/2003 SULFA (SULFONAMIDE ANTIBIOTICS) 03/12/2003 16 - Unknown VANCOMYCIN 07/05/2021 2 - Rash Date Reviewed: 12/19/2024 Reviewed by: Mandy Aguirre - Fully Assessed Reason for Visit: Established Patient [175] Cmt: Primary Visit Diagnosis:Abnormal findings on diagnostic imaging of liver and biliary tract [R93.2] Other Visit Diagnosis:IPMN (intraductal papillary mucinous neoplasm) [D49.0] Order(s):MRI PANC/ROSE MARIE WO/W IVCON [[id number]] Order #: [id number] FUTURE MRI 3D POST PROCESSING [[id number]] Order #: [id number] FUTURE iv contrast (will be provided with radiology test)MRI PANC/ROSE MARIE Inject, intravenously, once for 1 dose. No IV access, insert saline lock prior to the beginning of sedation, infusion, injection of imaging exam. Discontinue saline lock post exam. If Pt. has a central line or IVAD, may access for administration according to line specific nursing protocol. Once exam is complete flush line and de-access according to line specific nursing protocol in the MR contrast administration guidelines link.Disp: 1 eachRfl: 0 Prescriptions as of 12/20/2024 - rosuvastatin (CRESTOR) 5 mg tablet Take 1 tablet by mouth once daily. - iv contrast (will be provided with radiology test) MRI PANC/ROSE MARIE Inject, intravenously, once for 1 dose. No IV access, insert saline lock prior to the beginning of sedation, infusion, injection of imaging exam. Discontinue saline lock post exam. If Pt. has a central line or IVAD, may access for administration according to line specific nursing protocol. Once exam is complete flush line and de-access according to line specific nursing protocol in the MR contrast administration guidelines link. - folic acid 1 mg tablet TAKE 1 TABLET BY MOUTH EVERY DAY - diphenoxylate-atropine (LOMOTIL) 2.5-0.025 mg per tablet TAKE 1 TABLET BY MOUTH 3 OR 4 TIMES DAILY NEEDED - vedolizumab (ENTYVIO) 300 mg injection Infuse 300 mg at week 0, 2, 6, then every 8 weeks thereafter. - ergocalciferol 50,000 unit capsule (VITAMIN D2, DRISDOL) Take 1 capsule by mouth one time a week. - Cholecalciferol, Vitamin D3, (VITAMIN D) 25 mcg (1,000 unit) cap Take 1 capsule by mouth once daily. - atenolol (TENORMIN) 25 mg tablet Take 1 tablet by mouth once daily. - spironolactone (ALDACTONE) 25 mg tablet Take 1 tablet by mouth every afternoon. - magnesium oxide (MAG-OX) 400 mg (241.3 mg magnesium) tablet Take 1 tablet by mouth every afternoon. - ferrous sulfate 325 mg (65 mg iron) tablet Take 325 mg by mouth five times a week. - mecobalamin, vitamin B12, 1,000 mcg chew Take by mouth once daily. - Syringe with Needle, Disp, 3 mL 25 gauge x 1 1 Syringe as directed. - metFORMIN ER (GLUCOPHAGE XR) 500 mg 24 hr tablet TAKE 1 TABLET BY MOUTH EVERY DAY IN THE EVENING WITH MEAL - insulin lispro (HUMALOG KWIKPEN INSULIN) 100 unit/mL Inject 0-10 units three times daily following the sliding scale: If Blood Glucose (mg/dL) is <110 Give 0 units 111-150 Give 0 units 151-200 Give 2 unit 201-250 Give 4 units 251-300 Give 6 units 301-350 Give 8 units 351-400 Give 10 units >400 give 10units and notify provider. - Insulin [place], Disposable, (BD ULTRA-FINE MIN PEN NEEDLE) 32 gauge x 5/32 (more content not included)...NormalSum[facility] Biliary ducts and Pancreatic duct WO and W contrast Grace 12-11-2024* * *Final Report* * * DATE OF EXAM: Dec 11 2024 11:32AM QBM 0730 - MRI PANC/ROSE MARIE WO/W IVCON / PROCEDURE REASON: Abnormal findings on diagnostic imaging of liver and biliary tract * * * * Physician Interpretation * * * * MRI OF THE ABDOMEN (PANCREAS-BILIARY) WITHOUT AND WITH IV CONTRAST, 3D REFORMATTED IMAGES HISTORY: Pancreatic cyst, status post distal pancreatectomy and splenectomy in 2021, cholecystectomy, gastropexy and repair of recurrent incisional hernia. MR for follow-up of uncinate process cystic lesion. TECHNIQUE: Magnet: 1.5T scanner. Multiplanar MRI of the abdomen with multiple sequences, performed before and after intravenous contrast. Image post-processing {Maximum intensity Projection (MIP), Volume-rendered (VR), Surface shaded display images (SSD) or complex volumetric analysis} was performed at an off-line workstation with concurrent physician supervision, with images created, reviewed and archived. Contrast: IV: 9 ml of Elucirem COMPARISON: MR 12/05/2023. RESULT: Liver: Normal liver morphology. Mild diffuse hepatic steatosis. No suspicious hepatic lesions. Biliary: No bile duct dilation. Cholecystectomy. Spleen: Splenectomy. Pancreas: * Distal pancreatectomy. Unremarkable resection bed/margin. * Redemonstrated few pancreatic cystic lesions, largest measuring up to 1 x 0.8 cm uncinate process (8:36), previously 1.1 cm. No worrisome features. * No solid pancreatic lesion/pancreatic ductal dilatation. Adrenals: No mass. Kidneys: Benign cysts. No solid mass. No hydronephrosis. GI tract: Small hiatal hernia. Total proctocolectomy. Distal small bowel loops are dilated up to 6 cm, similar to 10/23/2023. Rectus diastasis with anterior protrusion of the bowel loops, similar to prior. Lymph nodes: No abdominal lymphadenopathy. Mesentery/Peritoneum: No ascites. Stable 5 cm anterior abdominal wall fat necrosis (8:33). Vasculature: The celiac axis and SMA are patent. The portal vein and branches, splenic vein, SMV, and hepatic veins are patent. No aortic or iliac artery aneurysm. Bones/Soft Tissues: Degenerative changes. 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 Lower thorax: Unremarkable. DIVISION OF RADIOLOGYProvider, [facility] [place] - 12/11/2024 * * *Final Report* * * DATE OF EXAM: Dec 11 2024 11:32AM [facility] 0730 - MRI PANC/ROSE MARIE WO/W IVCON / PROCEDURE REASON: Abnormal findings on diagnostic imaging of liver and biliary tract * * * * Physician Interpretation * * * * MRI OF THE ABDOMEN (PANCREAS-BILIARY) WITHOUT AND WITH IV CONTRAST, 3D REFORMATTED IMAGES HISTORY: Pancreatic cyst, status post distal pancreatectomy and splenectomy in 2021, cholecystectomy, gastropexy and repair of recurrent incisional hernia. MR for follow-up of uncinate process cystic lesion. TECHNIQUE: Magnet: 1.5T scanner. Multiplanar MRI of the abdomen with multiple sequences, performed before and after intravenous contrast. Image post-processing {Maximum intensity Projection (MIP), Volume-rendered (VR), Surface shaded display images (SSD) or complex volumetric analysis} was performed at an off-line workstation with concurrent physician supervision, with images created, reviewed and archived. Contrast: IV: 9 ml of Elucirem COMPARISON: MR 12/05/2023. RESULT: Liver: Normal liver morphology. Mild diffuse hepatic steatosis. No suspicious hepatic lesions. Biliary: No bile duct dilation. Cholecystectomy. Spleen: Splenectomy. Pancreas: * Distal pancreatectomy. Unremarkable resection bed/margin. * Redemonstrated few pancreatic cystic lesions, largest measuring up to 1 x 0.8 cm uncinate process (8:36), previously 1.1 cm. No worrisome features. * No solid pancreatic lesion/pancreatic ductal dilatation. Adrenals: No mass. Kidneys: Benign cysts. No solid mass. No hydronephrosis. GI tract: Small hiatal hernia. Total proctocolectomy. Distal small bowel loops are dilated up to 6 cm, similar to 10/23/2023. Rectus diastasis with anterior protrusion of the bowel loops, similar to prior. Lymph nodes: No abdominal lymphadenopathy. Mesentery/Peritoneum: No ascites. Stable 5 cm anterior abdominal wall fat necrosis (8:33). Vasculature: The celiac axis and SMA are patent. The portal vein and branches, splenic vein, SMV, and hepatic veins are patent. No aortic or iliac artery aneurysm. Bones/Soft Tissues: Degenerative changes. 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 Lower thorax: Unremarkable. IMPRESSION IMPRESSION: Stable pancreatic cystic lesions measuring up to 1 cm, likely side branch IPMN. No worrisome features. Overlock Hemmer: ADRIÁN Transcribe Date/Time: Dec 11 2024 11:59A Dictated by : KATELYN MILLS MD This examination was interpreted and the report reviewed and electronically signed by: JOSHUA GUERRA MD on Dec 11 2024 1:00PM [facility] Unspecified body region 3D post processingon 12-11-2024* * *Final Report* * * DATE OF EXAM: Dec 11 2024 11:32AM [facility] 0280 - MRI 3D POST PROCESSING / PROCEDURE REASON: IPMN (intraductal papillary mucinous neoplasm) * * * * Physician Interpretation * * * * MRI OF THE ABDOMEN (PANCREAS-BILIARY) WITHOUT AND WITH IV CONTRAST, 3D REFORMATTED IMAGES HISTORY: Pancreatic cyst, status post distal pancreatectomy and splenectomy in 2021, cholecystectomy, gastropexy and repair of recurrent incisional hernia. MR for follow-up of uncinate process cystic lesion. TECHNIQUE: Magnet: 1.5T scanner. Multiplanar MRI of the abdomen with multiple sequences, performed before and after intravenous contrast. Image post-processing {Maximum intensity Projection (MIP), Volume-rendered (VR), Surface shaded display images (SSD) or complex volumetric analysis} was performed at an off-line workstation with concurrent physician supervision, with images created, reviewed and archived. Contrast: IV: 9 ml of Elucirem COMPARISON: MR 12/05/2023. RESULT: Liver: Normal liver morphology. Mild diffuse hepatic steatosis. No suspicious hepatic lesions. Biliary: No bile duct dilation. Cholecystectomy. Spleen: Splenectomy. Pancreas: * Distal pancreatectomy. Unremarkable resection bed/margin. * Redemonstrated few pancreatic cystic lesions, largest measuring up to 1 x 0.8 cm uncinate process (8:36), previously 1.1 cm. No worrisome features. * No solid pancreatic lesion/pancreatic ductal dilatation. Adrenals: No mass. Kidneys: Benign cysts. No solid mass. No hydronephrosis. GI tract: Small hiatal hernia. Total proctocolectomy. Distal small bowel loops are dilated up to 6 cm, similar to 10/23/2023. Rectus diastasis with anterior protrusion of the bowel loops, similar to prior. Lymph nodes: No abdominal lymphadenopathy. Mesentery/Peritoneum: No ascites. Stable 5 cm anterior abdominal wall fat necrosis (8:33). Vasculature: The celiac axis and SMA are patent. The portal vein and branches, splenic vein, SMV, and hepatic veins are patent. No aortic or iliac artery aneurysm. Bones/Soft Tissues: Degenerative changes. 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 Lower thorax: Unremarkable. DIVISION OF RADIOLOGYProvider, [facility] [place] - 12/11/2024 * * *Final Report* * * DATE OF EXAM: Dec 11 2024 11:32AM [facility] 0280 - MRI 3D POST PROCESSING / PROCEDURE REASON: IPMN (intraductal papillary mucinous neoplasm) * * * * Physician Interpretation * * * * MRI OF THE ABDOMEN (PANCREAS-BILIARY) WITHOUT AND WITH IV CONTRAST, 3D REFORMATTED IMAGES HISTORY: Pancreatic cyst, status post distal pancreatectomy and splenectomy in 2021, cholecystectomy, gastropexy and repair of recurrent incisional hernia. MR for follow-up of uncinate process cystic lesion. TECHNIQUE: Magnet: 1.5T scanner. Multiplanar MRI of the abdomen with multiple sequences, performed before and after intravenous contrast. Image post-processing {Maximum intensity Projection (MIP), Volume-rendered (VR), Surface shaded display images (SSD) or complex volumetric analysis} was performed at an off-line workstation with concurrent physician supervision, with images created, reviewed and archived. Contrast: IV: 9 ml of Elucirem COMPARISON: MR 12/05/2023. RESULT: Liver: Normal liver morphology. Mild diffuse hepatic steatosis. No suspicious hepatic lesions. Biliary: No bile duct dilation. Cholecystectomy. Spleen: Splenectomy. Pancreas: * Distal pancreatectomy. Unremarkable resection bed/margin. * Redemonstrated few pancreatic cystic lesions, largest measuring up to 1 x 0.8 cm uncinate process (8:36), previously 1.1 cm. No worrisome features. * No solid pancreatic lesion/pancreatic ductal dilatation. Adrenals: No mass. Kidneys: Benign cysts. No solid mass. No hydronephrosis. GI tract: Small hiatal hernia. Total proctocolectomy. Distal small bowel loops are dilated up to 6 cm, similar to 10/23/2023. Rectus diastasis with anterior protrusion of the bowel loops, similar to prior. Lymph nodes: No abdominal lymphadenopathy. Mesentery/Peritoneum: No ascites. Stable 5 cm anterior abdominal wall fat necrosis (8:33). Vasculature: The celiac axis and SMA are patent. The portal vein and branches, splenic vein, SMV, and hepatic veins are patent. No aortic or iliac artery aneurysm. Bones/Soft Tissues: Degenerative changes. 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 Lower thorax: Unremarkable. IMPRESSION IMPRESSION: Stable pancreatic cystic lesions measuring up to 1 cm, likely side branch IPMN. No worrisome features. Overlock Hemmer: PSCB Transcribe Date/Time: Dec 11 2024 11:59A Dictated by : KATELYN MILLS MD This examination was interpreted and the report reviewed and electronically signed by: JOSHUA GUERRA MD on Dec 11 2024 1:00PM [facility] [id number] 3D POST PROCESSING* * *Final Report* * * DATE OF EXAM: Dec 11 2024 11:32AM [facility] 0280 - MRI 3D POST PROCESSING / PROCEDURE REASON: IPMN (intraductal papillary mucinous neoplasm) * * * * Physician Interpretation * * * * MRI OF THE ABDOMEN (PANCREAS-BILIARY) WITHOUT AND WITH IV CONTRAST, 3D REFORMATTED IMAGES HISTORY: Pancreatic cyst, status post distal pancreatectomy and splenectomy in 2021, cholecystectomy, gastropexy and repair of recurrent incisional hernia. MR for follow-up of uncinate process cystic lesion. TECHNIQUE: Magnet: 1.5T scanner. Multiplanar MRI of the abdomen with multiple sequences, performed before and after intravenous contrast. Image post-processing {Maximum intensity Projection (MIP), Volume-rendered (VR), Surface shaded display images (SSD) or complex volumetric analysis} was performed at an off-line workstation with concurrent physician supervision, with images created, reviewed and archived. Contrast: IV: 9 ml of Elucirem COMPARISON: MR 12/05/2023. RESULT: Liver: Normal liver morphology. Mild diffuse hepatic steatosis. No suspicious hepatic lesions. Biliary: No bile duct dilation. Cholecystectomy. Spleen: Splenectomy. Pancreas: * Distal pancreatectomy. Unremarkable resection bed/margin. * Redemonstrated few pancreatic cystic lesions, largest measuring up to 1 x 0.8 cm uncinate process (8:36), previously 1.1 cm. No worrisome features. * No solid pancreatic lesion/pancreatic ductal dilatation. Adrenals: No mass. Kidneys: Benign cysts. No solid mass. No hydronephrosis. GI tract: Small hiatal hernia. Total proctocolectomy. Distal small bowel loops are dilated up to 6 cm, similar to 10/23/2023. Rectus diastasis with anterior protrusion of the bowel loops, similar to prior. Lymph nodes: No abdominal lymphadenopathy. Mesentery/Peritoneum: No ascites. Stable 5 cm anterior abdominal wall fat necrosis (8:33). Vasculature: The celiac axis and SMA are patent. The portal vein and branches, splenic vein, SMV, and hepatic veins are patent. No aortic or iliac artery aneurysm. Bones/Soft Tissues: Degenerative changes. 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 Lower thorax: Unremarkable. IMPRESSION: Stable pancreatic cystic lesions measuring up to 1 cm, likely side branch IPMN. No worrisome features. Overlock Hemmer: [facility] Transcribe Date/Time: Dec 11 2024 11:59A Dictated by : KATELYN MILLS MD This examination was interpreted and the report reviewed and electronically signed by: JOSHUA GUERRA MD on Dec 11 2024 1:00PM EST [id number] Osteopathic HospitalMR PANC/ROSE MARIE WO/W IVCONon [id number] PANC/ROSE MARIE WO/W IVCON* * *Final Report* * * DATE OF EXAM: Dec 11 2024 11:32AM [facility] 0730 - MRI PANC/ROSE MARIE WO/W IVCON / PROCEDURE REASON: Abnormal findings on diagnostic imaging of liver and biliary tract * * * * Physician Interpretation * * * * MRI OF THE ABDOMEN (PANCREAS-BILIARY) WITHOUT AND WITH IV CONTRAST, 3D REFORMATTED IMAGES HISTORY: Pancreatic cyst, status post distal pancreatectomy and splenectomy in 2021, cholecystectomy, gastropexy and repair of recurrent incisional hernia. MR for follow-up of uncinate process cystic lesion. TECHNIQUE: Magnet: 1.5T scanner. Multiplanar MRI of the abdomen with multiple sequences, performed before and after intravenous contrast. Image post-processing {Maximum intensity Projection (MIP), Volume-rendered (VR), Surface shaded display images (SSD) or complex volumetric analysis} was performed at an off-line workstation with concurrent physician supervision, with images created, reviewed and archived. Contrast: IV: 9 ml of Elucirem COMPARISON: MR 12/05/2023. RESULT: Liver: Normal liver morphology. Mild diffuse hepatic steatosis. No suspicious hepatic lesions. Biliary: No bile duct dilation. Cholecystectomy. Spleen: Splenectomy. Pancreas: * Distal pancreatectomy. Unremarkable resection bed/margin. * Redemonstrated few pancreatic cystic lesions, largest measuring up to 1 x 0.8 cm uncinate process (8:36), previously 1.1 cm. No worrisome features. * No solid pancreatic lesion/pancreatic ductal dilatation. Adrenals: No mass. Kidneys: Benign cysts. No solid mass. No hydronephrosis. GI tract: Small hiatal hernia. Total proctocolectomy. Distal small bowel loops are dilated up to 6 cm, similar to 10/23/2023. Rectus diastasis with anterior protrusion of the bowel loops, similar to prior. Lymph nodes: No abdominal lymphadenopathy. Mesentery/Peritoneum: No ascites. Stable 5 cm anterior abdominal wall fat necrosis (8:33). Vasculature: The celiac axis and SMA are patent. The portal vein and branches, splenic vein, SMV, and hepatic veins are patent. No aortic or iliac artery aneurysm. Bones/Soft Tissues: Degenerative changes. 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 Lower thorax: Unremarkable. IMPRESSION: Stable pancreatic cystic lesions measuring up to 1 cm, likely side branch IPMN. No worrisome features. Overlock Hemmer: [facility] Transcribe Date/Time: Dec 11 2024 11:59A Dictated by : KATELYN MILLS MD This examination was interpreted and the report reviewed and electronically signed by: JOSHUA GUERRA MD on Dec 11 2024 1:00PM EST [id number] Health Main Campus Panel Informationon [id number]: Stable pancreatic cystic lesions measuring up to 1 cm, likely side branch IPMN. No worrisome features. Overlock Hemmer: [facility] Transcribe Date/Time: Dec 11 2024 11:59A Dictated by : KATELYN MILLS MD This examination was interpreted and the report reviewed and electronically signed by: JOSHUA GUERRA MD on Dec 11 2024 1:00PM EST DIVISION OF RADIOLOGYRadiology Study observation (narrative)[facility] Panel InformationOrdered By: [facility] Provider on [id number] ClinicAlanine aminotransferase [Enzymatic activity/volume] in Serum or PlasmaOrdered By: Dedra Mcallister on 81-72-0250OMX [Catalytic activity/Vol]Alanine aminotransferase [Enzymatic activity/volume] in Serum or Plasma7-[facility] SystemAlbumin [Mass/volume] in Serum or Plasma by Bromocresol green (BCG) dye binding methoOrdered By: Dedra Mcallister on 00-92-6383Smhnfwn BCG dye [Mass/Vol]Albumin [Mass/volume] in Serum or Plasma by Bromocresol green (BCG) dye binding metho3.5-5.7FOhio State University Wexner Medical CenterAlbumin BCG dye [Mass/Vol]4.2 g/dL3.5-5.7FOhio State University Wexner Medical CenterAlkaline phosphatase [Enzymatic activity/volume] in Serum or PlasmaOrdered By: Dedra Mcallister on 10-72-3862NEA [Catalytic activity/Vol]Alkaline phosphatase [Enzymatic activity/volume] in Serum or Jnjpcs69-916VumeyfnktOhio State Health System Appearance of UrineOrdered By: Dedra Mcallister on 78-18-6174Qxkbphqydx (U)Urine appearanceCleBlanchard Valley Health SystemAspartate aminotransferase [Enzymatic activity/volume] in Serum or PlasmaOrdered By: Dedra Mcallister on 65-21-0830TVH [Catalytic activity/Vol]Aspartate aminotransferase [Enzymatic activity/volume] in Serum or Oblpfd39-00QhykmdgihOhio State Health System Bacteria [Presence] in Urine by AutomatedOrdered By: Dedra Mcallister on 80-75-5126Ytihgiqy Auto Ql (U)Bacteria [Presence] in Urine by AutomatedNone Seen [facility] Health SystemBacteria Auto Ql (U)None seen [HPF]None Seen [facility] SystemBasic Metabolic PanelOrdered By: Dedra Mcallister on 48-86-2896Ddqwf gap [Moles/Vol]10.8 mmol/L6.0-15.0[facility] SystemComment on above:Performed By: #### QUANT TB, HBSAG, HCV RX PCR #### [facility] , #### LIPID, HEPATIC, CBC, BMP #### [facility] [address] [place] [address] USACalcium [Mass/Vol]9.2 mg/dL8.6-10.3FOhio State University Wexner Medical CenterComment on above:Performed By: #### QUANT TB, HBSAG, HCV RX PCR #### [facility] , #### LIPID, HEPATIC, CBC, BMP #### [facility] [address] [place] [address] USAChloride [Moles/Vol]101 mmol/G89-569FlxnyxaoqOhio State Health SystemComment on above:Performed By: #### QUANT TB, HBSAG, HCV RX PCR #### [facility] , #### LIPID, HEPATIC, CBC, BMP #### [facility] [address] [place] [address] USACO2 [Moles/Vol]24.3 mmol/L21.0-31.0[facility] SystemComment on above:Performed By: #### QUANT TB, HBSAG, HCV RX PCR #### [facility] , #### LIPID, HEPATIC, CBC, BMP #### [facility] [address] [place] [address] USACreatinine [Mass/Vol]0.77 mg/dL0.60-1.20[facility] SystemComment on above:Performed By: #### QUANT TB, HBSAG, HCV RX PCR #### [facility] , #### LIPID, HEPATIC, CBC, BMP #### [facility] [address] [place] [address] USAGlucose [Mass/Vol]106 mg/bISpyv35-227BqilzwybjOhio State Health SystemComment on above:Result Comment: Random Glucose Reference Range is dependent on time and content of last meal. Glucose of more than 200 mg/dL in a nonstressed, ambulatory subject supports the diagnosis of Diabetes Mellitus. ADA recommended reference rangePerformed By: #### QUANT TB, HBSAG, HCV RX PCR #### [facility] , #### LIPID, HEPATIC, CBC, BMP #### [place] [address] USAADA recommended reference rangeRandom Glucose Reference Range is dependent on time and content of last meal. Glucose of more than 200 mg/dL in a nonstressed, ambulatory subject supports the diagnosisof Diabetes Mellitus.Potassium [Moles/Vol]4.1 mmol/L3.5-5.1FOhio State University Wexner Medical Center Comment on above:Performed By: #### QUANT TB, HBSAG, HCV RX PCR #### [facility] , #### LIPID, HEPATIC, CBC, BMP #### [facility] [address] [place] [address] USASodium [Moles/Vol]132 mmol/QBgk903-945LmnjnttymOhio State Health SystemComment on above:Performed By: #### QUANT TB, HBSAG, HCV RX PCR #### [facility] , #### LIPID, HEPATIC, CBC, BMP #### [facility] [address] [place] [address] USAUrea nitrogen [Mass/Vol]13 mg/dL7-25[facility] Health SystemComment on above:Performed By: #### QUANT TB, HBSAG, HCV RX PCR #### [facility] , #### LIPID, HEPATIC, CBC, BMP #### [facility] [address] [place] [address] USABasic Metabolic Panelon 04-72-6162Ahtwslozoz Clr Calc Jgrxjyit51.69NormalThe [facility] Physician GroupComment on above:Performed By: #### QUANT TB, HBSAG, HCV RX PCR #### [facility] , #### LIPID, HEPATIC, CBC, BMP #### [facility] [address] [place] [address] USAGFR/1.73 sq M.predicted MDRD (S/P/Bld) [Vol rate/Area] mL/min/{1.73_m2}NormalThe [facility] Center Physician GroupComment on above:Performed By: #### QUANT TB, HBSAG, HCV RX PCR #### [facility] , #### LIPID, HEPATIC, CBC, BMP #### [facility] [address] [place] [address] USABasophils Auto (Bld) [#/Vol]Ordered By: Dedra Mcallister on 53-73-8154Uqocbtyuq (Bld) [#/Vol]Automated basophil count0.0-0.2FOhio State University Wexner Medical CenterBasophils/100 WBC Auto (Bld)Ordered By: Dedra Mcallister on 16-43-1254Zpickfrsx/100 WBC (Bld)Automated basophil %.[facility] Health SystemBilirubin Test strip Ql (U)Ordered By: Dedra Mcallister on 71-03-6917Svznrazym Ql (U)Bilirubin.total [Presence] in Urine by Test strip NegativeOhio State Health SystemBilirubin Ql (U)NegativeNegative [facility] Health SystemBilirubin.direct [Mass/volume] in Serum or PlasmaOrdered By: Dedra Mcallister on 37-00-5386Pvtnybeeb.direct [Mass/Vol] Bilirubin.direct [Mass/volume] in Serum or PlasmaLow0.03-0.18FOhio State University Wexner Medical CenterComment on above:If the DBIL is less than 0.1, IBIL is not able to becalculated.Bilirubin.direct [Mass/Vol]0.00 mg/dLLow0.03-0.18FOhio State University Wexner Medical CenterComment on above:If the DBIL is less than 0.1, IBIL is not able to becalculated.Bilirubin.total [Mass/volume] in Serum or PlasmaOrdered By: Dedra Mcallister on 50-82-3125Oyonqskkn [Mass/Vol]Bilirubin.total [Mass/volume] in Serum or Plasma0.3-1.0[facility] Health SystemCalcium [Mass/volume] in Serum or PlasmaOrdered By: Dedra Mcallister on 23-83-3926Ajotksb [Mass/Vol]Calcium [Mass/volume] in Serum or Plasma8.6-10.3FOhio State University Wexner Medical CenterCarbon dioxide, total [Moles/volume] in Serum or PlasmaOrdered By: Dedra Mcallister on 01-49-6038HJ4 [Moles/Vol]Carbon dioxide, total [Moles/volume] in Serum or Weppxs02.0-31.0[facility] Chloride [Moles/volume] in Serum or PlasmaOrdered By: Dedra Mcallister on 52-08-9071Yduiehji [Moles/Vol]Chloride [Moles/volume] in Serum or Iohppl46-173 [facility] SystemColor Auto (U)Ordered By: Dedra Mcallister on 53-07-1125Dtoyw (U)Color of Urine by AutoYellowOhio State Health System Complete Blood Count Auto DiffOrdered By: Dedra Mcallister on 94-40-1754Ajyyykoxi (Bld) [#/Vol]0.2 10*3/uL0.0-0.2FOhio State University Wexner Medical CenterComment on above:Result Comment: PERFORMED BY: [facility] [place] [address] PATHOLOGIST [employer] REPA[employer] MANAGER GM ORR M.D.Performed By: #### QUANT TB, HBSAG, HCV RX PCR #### [facility] , #### LIPID, HEPATIC, CBC, BMP #### [place] [address] USABasophils/100 WBC (Bld)1.5 %.[facility] Health SystemComment on above:Performed By: #### QUANT TB, HBSAG, HCV RX PCR #### [facility] , #### LIPID, HEPATIC, CBC, BMP #### [place] [address] USAEosinophils (Bld) [#/Vol]0.4 10*3/uL0.0-0.45[facility] Health SystemComment on above:Performed By: #### QUANT TB, HBSAG, HCV RX PCR #### [facility] , #### LIPID, HEPATIC, CBC, BMP #### [place] [address] USAEosinophils/100 WBC (Bld)3.1 %.[facility] Health SystemComment on above:Performed By: #### QUANT TB, HBSAG, HCV RX PCR #### [facility] , #### LIPID, HEPATIC, CBC, BMP #### [place] [address] USAErythrocyte distribution width (RBC) [Ratio]14.0 % 11.9-15.3FOhio State University Wexner Medical CenterComment on above:Performed By: #### QUANT TB, HBSAG, HCV RX PCR #### [facility] , #### LIPID, HEPATIC, CBC, BMP #### [place] [address] USAHematocrit (Bld) [Volume fraction]38.1 %34.0-46.4FOhio State University Wexner Medical CenterComment on above:Performed By: #### QUANT TB, HBSAG, HCV RX PCR #### [facility] , #### LIPID, HEPATIC, CBC, BMP #### [place] [address] USAHemoglobin (Bld) [Mass/Vol]12.7 g/dL11.8-15.4FOhio State University Wexner Medical CenterComment on above:Performed By: #### QUANT TB, HBSAG, HCV RX PCR #### [facility] , #### LIPID, HEPATIC, CBC, BMP #### [facility] [address] [place] [address] USALymphocytes (Bld) [#/Vol]2.2 10*3/uL1.00-4.8[facility] State Health SystemComment on above:Performed By: #### QUANT TB, HBSAG, HCV RX PCR #### [facility] , #### LIPID, HEPATIC, CBC, BMP #### [facility] [address] [place] [address] USALymphocytes/100 WBC (Bld)18.8 %.[facility] State Health SystemComment on above:Performed By: #### QUANT TB, HBSAG, HCV RX PCR #### [facility] , #### LIPID, HEPATIC, CBC, BMP #### [facility] [address] [place], [place] [address]H (RBC) [Entitic mass]29.8 pg24.7-34.3FOhio State University Wexner Medical CenterComment on above:Performed By: #### QUANT TB, HBSAG, HCV RX PCR #### [facility] , #### LIPID, HEPATIC, CBC, BMP #### [facility] [address] [place] [address] USAV (RBC) [Entitic vol]89.2 qA33-447SdehpqdcrOhio State Health SystemComment on above:Performed By: #### QUANT TB, HBSAG, HCV RX PCR #### [facility] , #### LIPID, HEPATIC, CBC, BMP #### [facility] [address] [place] [address] USAMonocytes (Bld) [#/Vol]0.9 10*3/uLHigh0.0-0.8[facility] State Health SystemComment on above:Performed By: #### QUANT TB, HBSAG, HCV RX PCR #### [facility] , #### LIPID, HEPATIC, CBC, BMP #### [place] [address] USAMonocytes/100 WBC (Bld)7.5 %.[facility] State Health SystemComment on above:Performed By: #### QUANT TB, HBSAG, HCV RX PCR #### [facility] , #### LIPID, HEPATIC, CBC, BMP #### [place] [address] USANeutrophils (Bld) [#/Vol]8.1 10*3/uLHigh1.8-7.7FOhio State University Wexner Medical CenterComment on above:Performed By: #### QUANT TB, HBSAG, HCV RX PCR #### [facility] , #### LIPID, HEPATIC, CBC, BMP #### [place] [address] USANeutrophils/100 WBC (Bld)69.1 %.[facility] Health SystemComment on above:Performed By: #### QUANT TB, HBSAG, HCV RX PCR #### [facility] , #### LIPID, HEPATIC, CBC, BMP #### [place] [address] USAPlatelet mean volume (Bld) [Entitic vol]6.7 fL6.3-10.7 [facility] SystemCommclaren northern [place] on above:Performed By: #### QUANT TB, HBSAG, HCV RX PCR #### [facility] , #### LIPID, HEPATIC, CBC, BMP #### [place] [address] USAPlatelets (Bld) [#/Vol]476 10*3/sVBwou897-514HaycfiaphOhio State Health SystemComment on above:Performed By: #### QUANT TB, HBSAG, HCV RX PCR #### [facility] , #### LIPID, HEPATIC, CBC, BMP #### [place] [address] USARBC (Bld) [#/Vol]4.27 10*6/uL3.60-5.00[facility] Health SystemComment on above:Performed By: #### QUANT TB, HBSAG, HCV RX PCR #### [facility] , #### LIPID, HEPATIC, CBC, BMP #### [place] [address] USAWBC (Bld) [#/Vol]11.7 10*3/uLHigh3.8-11.6FOhio State University Wexner Medical CenterComment on above:Performed By: #### QUANT TB, HBSAG, HCV RX PCR #### [facility] , #### LIPID, HEPATIC, CBC, BMP #### [place] [address] USAComplete Blood Count Auto Diffon 95-48-9185Olhz Corpuscular HGB Conc33.4 g/bHRnutdg22.0-35.0[facility] Physician GroupComment on above:Performed By: #### QUANT TB, HBSAG, HCV RX PCR #### [facility] , #### LIPID, HEPATIC, CBC, BMP #### [place] [address] USAMonocytes/100 WBC (Bld)18.57 %Normal0.00-20.00[facility] Physician GroupComment on above:Performed By: #### QUANT TB, HBSAG, HCV RX PCR #### [facility] , #### LIPID, HEPATIC, CBC, BMP #### [place] [address] USANRBC%0.0 /100{WBC}Normal0-0.5[facility] Comment on above:Performed By: #### QUANT TB, HBSAG, HCV RX PCR #### [facility] , #### LIPID, HEPATIC, CBC, BMP #### [place] [address] USACreatinine [Mass/volume] in Serum or PlasmaOrdered By: Dedra Mcallister on 36-00-1284Buqitdlazt [Mass/Vol]Creatinine [Mass/volume] in Serum or Plasma0.60-1.20[facility] Health SystemDipstick and MicroscopicOrdered By: Dedra Mcallister on 22-54-2771Fxxawkrhiv (U)ClearClear [facility] Health SystemComment on above:Order Comment: Name Collection Type:: Clean-Voided MidstreamPerformed By: #### QUANT TB, HBSAG, HCV RX PCR #### [facility] , #### LIPID, HEPATIC, CBC, BMP #### [facility] [address] [place] [address] USAColor (U)Light-YellowYellowOhio State Health SystemComment on above:Order Comment: Name Collection Type:: Clean-Voided MidstreamPerformed By: #### QUANT TB, HBSAG, HCV RX PCR #### [facility] , #### LIPID, HEPATIC, CBC, BMP #### [facility] [address] [place] [address] USAKetones Ql (U)NegativeNegativeOhio State Health SystemComment on above:Order Comment: Name Collection Type:: Clean-Voided MidstreamPerformed By: #### QUANT TB, HBSAG, HCV RX PCR #### [facility] , #### LIPID, HEPATIC, CBC, BMP #### [facility] [address] [place] [address] USALeukocyte esterase Test strip Ql (U)NegativeNegKettering Health Main CampusComment on above:Order Comment: Name Collection Type:: Clean-Voided MidstreamPerformed By: #### QUANT TB, HBSAG, HCV RX PCR #### [facility] , #### LIPID, HEPATIC, CBC, BMP #### [facility] [address] [place] [address] USApH (U)5.5 [pH]5.0-9.0[facility] Comment on above:Order Comment: Name Collection Type:: Clean-Voided Midstream Performed By: #### QUANT TB, HBSAG, HCV RX PCR #### [facility] , #### LIPID, HEPATIC, CBC, BMP #### [place] [address] USADipstick and Microscopicon 81-49-3464Bzdipong,UrineNone SeenNormalNone SeenHca Florida Jfk North Hospital Physician GroupComment on above:Order Comment: Name Collection Type:: Clean-Voided MidstreamPerformed By: #### QUANT TB, HBSAG, HCV RX PCR #### [facility] , #### LIPID, HEPATIC, CBC, BMP #### [place] [address] USABilirubin,UrineNegativeNormalNegativeHca Florida Jfk North Hospital Physician GroupComment on above:Order Comment: Name Collection Type:: Clean- Voided MidstreamPerformed By: #### QUANT TB, HBSAG, HCV RX PCR #### [facility] , #### LIPID, HEPATIC, CBC, BMP #### [place] [address] USAGlucose Ql (U)NormalNormalNormalThCaribou Memorial Hospital Physician GroupComment on above:Order Comment: Name Collection Type:: Clean-Voided MidstreamPerformed By: #### QUANT TB, HBSAG, HCV RX PCR #### [facility] , #### LIPID, HEPATIC, CBC, BMP #### [place] [address] USAHyaline Casts,UrineNoneNormal0-8[facility] Physician GroupComment on above:Order Comment: Name Collection Type:: Clean-Voided MidstreamResult Comment: PERFORMED BY: [place] [address] PATHOLOGIST EXTRUSION DIE REPAIR MANAGER GM ORR M.D.Performed By: #### QUANT TB, HBSAG, HCV RX PCR #### [facility] , #### LIPID, HEPATIC, CBC, BMP #### [place] [address] USANitrite,UrineNegativeNormalNegativeThe [facility] Physician GroupComment on above:Order Comment: Name Collection Type:: Clean-Voided MidstreamPerformed By: #### QUANT TB, HBSAG, HCV RX PCR #### [facility] , #### LIPID, HEPATIC, CBC, BMP #### [place] [address] USAOccult Blood,UrineNegativeNormalNegativeThe [facility] Physician GroupComment on above:Order Comment: Name Collection Type:: Clean- Voided MidstreamResult Comment: PERFORMED BY: [place] [address] PATHOLOGIST EXTRUSION DIE REPAIR MANAGER GM ORR M.D.Performed By: #### QUANT TB, HBSAG, HCV RX PCR #### [facility] , #### LIPID, HEPATIC, CBC, BMP #### [place] [address] USAProtein,UrineTraceHighNegativeThe [facility] Physician GroupComment on above:Order Comment: Name Collection Type:: Clean-Voided MidstreamPerformed By: #### QUANT TB, HBSAG, HCV RX PCR #### [facility] , #### LIPID, HEPATIC, CBC, BMP #### [place] [address] USARBC,UrineNone SeenNormal0-4[facility] Comment on above:Order Comment: Name Collection Type:: Clean-Voided Midstream Performed By: #### QUANT TB, HBSAG, HCV RX PCR #### [facility] , #### LIPID, HEPATIC, CBC, BMP #### [place] [address] USASpecificy Aladdin,Urine1.537Xukiww9.001-1.030[facility] Physician GroupComment on above:Order Comment: Name Collection Type:: Clean- Voided MidstreamPerformed By: #### QUANT TB, HBSAG, HCV RX PCR #### [facility] , #### LIPID, HEPATIC, CBC, BMP #### [facility] [address] [place] [address] USAUrobilinogen,UrineNormalNormalNormalThe [facility] Physician GroupComment on above:Order Comment: Name Collection Type:: Clean- Voided MidstreamPerformed By: #### QUANT TB, HBSAG, HCV RX PCR #### [facility] , #### LIPID, HEPATIC, CBC, BMP #### [facility] [address] [place] [address] USAWBC,UrineNone SeenNormal0-4[facility] Comment on above:Order Comment: Name Collection Type:: Clean-Voided Midstream Performed By: #### QUANT TB, HBSAG, HCV RX PCR #### [facility] , #### LIPID, HEPATIC, CBC, BMP #### [facility] [address] [place] [address] USAECG 12 lead ECGon 35-64-9543LOR 12 lead ECGMEMORIAL [facility] [place] [address] Electrocardiograph Report Signed Patient: Laura Stephenson MR#: [id number] 3 : 1960 Acct:[id number] Age/Sex: 64 / F ADM Date: 12/03/24 Loc: ER Room: Type: [facility] ER Attending Dr: Ordering Provider: Dedra Mcallister APRN Date of Service: 12/03/24 ECG/ECG 12 lead ECG: Nausea/Vomiting/Diarrhea Copies to: Test Reason : Blood Pressure : */* mmHG Vent. Rate : 66 BPM Atrial Rate : 66 BPM P-R Int : 156 ms QRS Dur : 82 ms QT Int : 420 ms P-R-T Axes : 36 -21 1 degrees QTcB Int : 440 ms Normal sinus rhythm Confirmed by Blayne Beebe DO ([id number]) on 12/03/2024 7:15:08 PM Referred By: Electronically Signed By: Blayne Beebe DO Transcribed By: TYSON Signed By Blayne Beebe DO [address] [place] [address] Physician GroupEosinophils Auto (Bld) [#/Vol] Ordered By: Dedra Mcallister on 09-40-8003Msolbrmklfw (Bld) [#/Vol]Automated eosinophil count0.0-0.45[facility] Health SystemEosinophils/100 WBC Auto (Bld)Ordered By: Dedra Mcallister on 87-95-7392Egsrxdbimyr/100 WBC (Bld) Automated eosinophil %.[facility] Health SystemEpithelial cells.squamous [#/area] in Urine sediment by Automated countOrdered By: Dedra Mcallister on 58-87-6311Vugbpmcysv cells.squamous Auto (Urine sed) [#/Area] Epithelial cells.squamous [#/area] in Urine sediment by Automated countOhio State Health SystemEpithelial cells.squamous Auto (Urine sed) [#/Area]N/A [facility] SystemErythrocyte distribution width Auto (RBC) [Ratio]Ordered By: Dedra Mcallister on 55-62-4825Cocublvwilt distribution width (RBC) [Ratio]Erythrocyte distribution width [Ratio] by Automated count11.9-15.3 [facility] SystemErythrocytes [#/area] in Urine sediment by Automated countOrdered By: Dedra Mcallister on 59-80-4537FGG Auto (Urine sed) [#/Area]Erythrocytes [#/area] in Urine sediment by Automated count0-4FOhio State University Wexner Medical CenterRBC Auto (Urine sed) [#/Area]None seen [HPF]0-4FOhio State University Wexner Medical CenterGlobulin Calc (S) [Mass/Vol]Ordered By: Dedra Mcallister on 85-98-7850Elxdqeip (S) [Mass/Vol]Serum globulin measurement by calculation (mass/volume)[facility] Health SystemGlucose Glucometer (BldC) [Mass/Vol]Ordered By: Dedra Mcallister on 42-92-4451Mddcjhb [Mass/Vol]Capillary blood glucose measurement by glucometer (mass/volume)[facility] Health SystemComment on above:Random Glucose Reference Range is dependent on time and content of last meal. Glucose of more than 200 mg/dL in a nonstressed, ambulatory subject supports the diagnosis of Diabetes Mellitus.Glucose Poct GlucometersOrdered By: Dedra Mcallister on 08-65-1520Tuzyrsp [Mass/Vol]114 mg/dL [facility] Health SystemComment on above:Result Comment: Random Glucose Reference Range is dependent on time and content of last meal. Glucose of more than 200 mg/dL in a nonstressed, ambulatory subject supports the diagnosis of Diabetes Mellitus. PERFORMED BY: [facility] [address] [place] [address] PATHOLOGIST EXTRUSION DIE REPAIR MANAGER GM ORR M.D.Performed By: #### GLULS #### Point of Care testing ,Random Glucose Reference Range is dependent on time and content of last meal. Glucose of more than 200 mg/dL in a nonstressed, ambulatory subject supports the diagnosis of Diabetes Mellitus.Glucose [Mass/volume] in Serum or PlasmaOrdered By: Dedra Mcallister on 21-69-7923Zgqikwm [Mass/Vol]Glucose [Mass/volume] in Serum or DxxdneRbhv86-564OqicxwncbOhio State Health SystemComment on above:ADA recommended reference rangeRandom Glucose Reference Range is dependent on time and content of last meal. Glucose of more than 200 mg/dL in a nonstressed, ambulatory subject supports the diagnosisof Diabetes Mellitus.Glucose [Mass/volume] in Urine by Test stripOrdered By: Dedra Mcallister on 12-03-2024 Glucose Test strip (U) [Mass/Vol]Glucose [Mass/volume] in Urine by Test strip NormalOhio State Health SystemGlucose Test strip (U) [Mass/Vol]Normal mg/dLNormalOhio State Health SystemHematocrit Auto (Bld) [Volume fraction]Ordered By: Dedra Mcallister on 94-51-6623Nsygoruifk (Bld) [Volume fraction]Hematocrit [Volume Fraction] of Blood by Automated count34.0-46.4 [facility] SystemHemoglobin Test strip Ql (U)Ordered By: Dedra Mcallister on 60-92-5526Gvbbqfktep Ql (U)Hemoglobin [Presence] in Urine by Test stripNegativeOhio State Health SystemHemoglobin Ql (U)Negative NegativeOhio State Health SystemHemoglobin [Mass/volume] in Blood Ordered By: Dedra Mcallister on 85-79-4218Cqqiglugll (Bld) [Mass/Vol]Hemoglobin [Mass/volume] in Blood11.8-15.4FOhio State University Wexner Medical CenterHepatic Panelon 93-33-9248Hoybchm [Mass/Vol]4.2 g/dLNormal3.5-5.7[facility] Comment on above:Performed By: #### QUANT TB, HBSAG, HCV RX PCR #### [facility] , #### LIPID, HEPATIC, CBC, BMP #### [facility] [address] [place] [address] USABilirubin,Indirect0.3 mg/dLNormalThe [facility] Physician GroupComment on above:Performed By: #### QUANT TB, HBSAG, HCV RX PCR #### [facility] , #### LIPID, HEPATIC, CBC, BMP #### [facility] [address] [place] [address] USABilirubin.indirect [Mass/Vol]0.00 mg/dLLow0.03-0.18[facility] Physician [facility] HospitalComment on above:Result Comment: If the DBIL is less than 0.1, IBIL is not able to be calculated.Performed By: #### QUANT TB, HBSAG, HCV RX PCR #### [facility] , #### LIPID, HEPATIC, CBC, BMP #### [facility] [address] [place] [address] USAHepatic PanelOrdered By: Dedra Mcallister on 12-03-2024 Albumin/Globulin [Mass ratio]1.4 {ratio}[facility] State Health SystemComment on above:Performed By: #### QUANT TB, HBSAG, HCV RX PCR #### [facility] , #### LIPID, HEPATIC, CBC, BMP #### [facility] [address] [place] [address] USAALP [Catalytic activity/Vol]65 U/U51-444YufjnumqiOhio State Health SystemComment on above:Performed By: #### QUANT TB, HBSAG, HCV RX PCR #### [facility] , #### LIPID, HEPATIC, CBC, BMP #### [place] [address] USAALT [Catalytic activity/Vol]22 U/L7-52[facility] Health SystemComment on above:Performed By: #### QUANT TB, HBSAG, HCV RX PCR #### [facility] , #### LIPID, HEPATIC, CBC, BMP #### [place] [address] USAAST [Catalytic activity/Vol]22 U/X91-94JrdemarblOhio State Health SystemComment on above:Performed By: #### QUANT TB, HBSAG, HCV RX PCR #### [facility] , #### LIPID, HEPATIC, CBC, BMP #### [place] [address] USABilirubin [Mass/Vol]0.3 mg/dL0.3-1.0[facility] Health SystemComment on above:Performed By: #### QUANT TB, HBSAG, HCV RX PCR #### [facility] , #### LIPID, HEPATIC, CBC, BMP #### [place] [address] USAGlobulin (S) [Mass/Vol]2.9 g/dLOhio State Health SystemComment on above:Performed By: #### QUANT TB, HBSAG, HCV RX PCR #### [facility] , #### LIPID, HEPATIC, CBC, BMP #### [place] [address] USAProtein [Mass/Vol]7.1 g/dL6.4-8.9[facility] Health SystemComment on above:Performed By: #### QUANT TB, HBSAG, HCV RX PCR #### [facility] , #### LIPID, HEPATIC, CBC, BMP #### [place] [address] USAHyaline casts [#/area] in Urine sediment by Automated countOrdered By: Dedra Mcallister on 48-32-6416Hsokste casts Auto (Urine sed) [#/Area]Hyaline casts [#/area] in Urine sediment by Automated count0-8[facility] State Health SystemHyaline casts Auto (Urine sed) [#/Area]None [LPF]0-8 [facility] SystemKetones Test strip Ql (U)Ordered By: Dedra Mcallister on 45-19-5612Hyfsush Ql (U)Ketones [Presence] in Urine by Test strip NegativeOhio State Health SystemLeukocyte esterase [Presence] in Urine by Test stripOrdered By: Dedra Mcallister on 74-06-7120Nebwqxigh esterase Test strip Ql (U)Leukocyte esterase [Presence] in Urine by Test stripNegative [facility] SystemLeukocytes [#/area] in Urine sediment by Automated countOrdered By: Dedra Mcallister on 98-76-8777XJO Auto (Urine sed) [#/Area]Leukocytes [#/area] in Urine sediment by Automated count0-4FOhio State University Wexner Medical CenterWBC Auto (Urine sed) [#/Area]None seen [HPF]0-4FOhio State University Wexner Medical CenterLeukocytes [#/volume] corrected for nucleated erythrocytes in Blood by Automated counOrdered By: Dedra Mcallister on 12-03-2024 WBC corrected for nucl RBC Auto (Bld) [#/Vol]Leukocytes [#/volume] corrected for nucleated erythrocytes in Blood by Automated counHigh3.8-11.6FOhio State University Wexner Medical CenterWBC corrected for nucl RBC Auto (Bld) [#/Vol]11.7 10*3/uLHigh 3.8-11.6FOhio State University Wexner Medical CenterLipaseOrdered By: Dedra Mcallister on 32-63-2202Aphanc [Catalytic activity/Vol]10.0 U/LLow11.0-82.0[facility] Health SystemComment on above:Result Comment: PERFORMED BY: [facility] [address] [address] PATHOLOGIST EXTRUSION DIE REPAIR MANAGER GM ORR M.D.Performed By: #### QUANT TB, HBSAG, HCV RX PCR #### [facility] , #### LIPID, HEPATIC, CBC, BMP #### [facility] [address] [place] [address] USALipase [Enzymatic activity/volume] in Serum or Plasma Ordered By: Dedra Mcallister on 53-83-7807Ylbxbk [Catalytic activity/Vol]Lipase [Enzymatic activity/volume] in Serum or MjpejwLgi30.0-82.0[facility] Health SystemLymphocytes Auto (Bld) [#/Vol]Ordered By: Dedra Mcallister on 11-85-5350Itstvvwxsju (Bld) [#/Vol]Lymphocytes [#/volume] in Blood by Automated count1.00-4.8[facility] Health SystemLymphocytes/100 WBC Auto (Bld) Ordered By: Dedramichael Mcallister on 93-32-6439Xeygkuybanl/100 WBC (Bld) Lymphocytes/100 leukocytes in Blood by Automated count.[facility] Auto (RBC) [Entitic mass]Ordered By: Dedra Mcallister on 07-63-4116ZCD (RBC) [Entitic mass]MCH [Entitic mass] by Automated count24.7-34.3 [facility] Auto (RBC) [Mass/Vol]Ordered By: Dedra Mcallister on 09-68-5750SSPS (RBC) [Mass/Vol]MCHC [Mass/volume] by Automated count 32.0-35.0[facility]tering HealthHC (RBC) [Mass/Vol]33.4 g/dL 32.0-35.0Kettering HealthV Auto (RBC) [Entitic vol]Ordered By: Dedra Mcallister on 18-85-4393IUO (RBC) [Entitic vol]MCV [Entitic volume] by Automated tafsu35-155TojejhautOhio State Health SystemMagnesiumOrdered By: Dedra Mcallister on 75-87-0214Glusxjrwo [Mass/Vol]1.5 mg/dLLow1.9-2.7FOhio State University Wexner Medical CenterComment on above:Performed By: #### QUANT TB, HBSAG, HCV RX PCR #### [facility] , #### LIPID, HEPATIC, CBC, BMP #### [facility] [address] [place] [address] USAMagnesium [Mass/volume] in Serum or PlasmaOrdered By: Dedra Mcallister on 70-07-4613Uleybaxce [Mass/Vol]Magnesium [Mass/volume] in Serum or PlasmaLow1.9-2.7FOhio State University Wexner Medical CenterMonocyte distribution width [Entitic volume] in Blood by AutomatedOrdered By: Dedra Mcallister on 96-12-5729Gslyhope distribution width Auto (Bld) [Entitic vol]Monocyte distribution width [Entitic volume] in Blood by Automated0.00-20.00[facility] SystemMonocyte distribution width Auto (Bld) [Entitic vol]18.57 %0.00-20.00[facility] SystemMonocytes Auto (Bld) [#/Vol]Ordered By: Dedra Mcallister on 62-83-9705Xynttlhdj (Bld) [#/Vol]Automated blood monocyte countHigh0.0-0.8[facility] SystemMonocytes/100 WBC Auto (Bld) Ordered By: Dedra Mcallister on 99-29-4003Foqgfukds/100 WBC (Bld)Automated monocyte %.[facility] Health SystemNeutrophils Auto (Bld) [#/Vol] Ordered By: Dedra Mcallister on 89-42-0114Ytcqkzcbpdk (Bld) [#/Vol]Neutrophils [#/volume] in Blood by Automated countHigh1.8-7.7FOhio State University Wexner Medical CenterNeutrophils/100 WBC Auto (Bld)Ordered By: Dedra Mcallister on 12-03-2024 Neutrophils/100 WBC (Bld)Automated neutrophil %.[facility] Health SystemNitrite Test strip Ql (U)Ordered By: Dedra Mcallister on 74-88-0974Ruuqydk Ql (U)Nitrite [Presence] in Urine by Test stripNegativeOhio State Health SystemNitrite Ql (U)NegativeNegativeOhio State Health SystemNo Panel InformationOrdered By: Dedra Mcallister on 45-72-9467Mudeftgar GFR (CKD-EPI)> 60.0 mL/MinOhio State Health SystemPharmacy Creatinine Clearance (Chem78.69[facility] SystemNucleated erythrocytes [Presence] in Blood by Automated countOrdered By: Dedra Mcallistre on 12-03-2024 Nucleated RBC Auto Ql (Bld)Nucleated erythrocytes [Presence] in Blood by Automated count0-0.5FOhio State University Wexner Medical CenterNucleated RBC Auto Ql (Bld) 0.0 /100{WBC}0-0.5FOhio State University Wexner Medical CenterPlatelet mean volume Auto (Bld) [Entitic vol]Ordered By: Dedra Mcallister on 39-00-2593Rhfyzlso mean volume (Bld) [Entitic vol]Platelet mean volume [Entitic volume] in Blood by Automated count6.3-10.7FOhio State University Wexner Medical CenterPlatelets Auto (Bld) [#/Vol] Ordered By: Dedra Mcallister on 50-10-2172Lcquawonc (Bld) [#/Vol]Platelets [#/volume] in Blood by Automated hmijhGtls249-120NzrmglodlOhio State Health SystemPotassium [Moles/volume] in Serum or PlasmaOrdered By: Dedra Mcallister on 63-49-8234Mdycdivbm [Moles/Vol]Potassium [Moles/volume] in Serum or Plasma 3.5-5.1FOhio State University Wexner Medical CenterProtein Test strip (U) [Mass/Vol]Ordered By: Dedra Mcallister on 60-88-2532Kuqtpga (U) [Mass/Vol]Protein [Mass/volume] in Urine by Test stripHighNegativeOhio State Health SystemProtein (U) [Mass/Vol]Trace mg/dLHighNegSelect Medical Specialty Hospital - AkronProtein [Mass/volume] in Serum or PlasmaOrdered By: Dedra Mcallister on 13-11-8929Tkwwcox [Mass/Vol]Protein [Mass/volume] in Serum or Plasma6.4-8.9[facility] Health SystemRBC Auto (Bld) [#/Vol]Ordered By: Dedra Mcallister on 07-14-9398JEY (Bld) [#/Vol]Erythrocytes [#/volume] in Blood by Automated count3.60-5.00 OhioHealtherum or plasma albumin/globulin mass ratio Ordered By: Dedra Mcallister on 04-67-9240Lgjnqpg/Globulin [Mass ratio]Serum or plasma albumin/globulin mass ratioOhioHealtherum or plasma anion gap determinationOrdered By: Dedra Mcallister on 98-20-9375Qntrd gap [Moles/Vol]Serum or plasma anion gap determination6.0-15.0OhioHealtherum or plasma non-glucuronidated bilirubin measurement (mass/volume)Ordered By: Dedra Mcallister on 58-07-8276Rbigdcicr.indirect [Mass/Vol]Serum or plasma non-glucuronidated bilirubin measurement (mass/volume) [facility] Health SystemBilirubin.indirect [Mass/Vol]0.3 mg/dLOhioHealthodium [Moles/volume] in Serum or PlasmaOrdered By: Dedra Mcallister on 18-52-1718Cfaxgn [Moles/Vol]Sodium [Moles/volume] in Serum or LfbargNzl538-581JsgmumzqpOhioHealthpecific gravity Test strip (U) [Rel density]Ordered By: Dedra Mcallister on 66-63-6278Tlqdrryr gravity (U) [Rel density]Specific gravity of Urine by Test strip1.001-1.030OhioHealthpecific gravity (U) [Rel density]1.0191.001-1.030 [facility] SystemTroponin I High Sensitivityon 12-03-2024 Troponin I High Gmbwfhdjgvg9Vuxugc6-59Kgo [facility] Physician GroupComment on above:Result Comment: The Troponin units of report have been changed to meet the Chest Pain Accreditation requirement, element EC5.M1l2. Troponin units are changed from pg/ml to ng/L. Also, the decimal is removed and results are in whole numbers. PERFORMED BY: [place] [address] PATHOLOGIST EXTRUSION DIE REPAIR MANAGER GM ORR M.D.Performed By: #### QUANT TB, HBSAG, HCV RX PCR #### [facility] , #### LIPID, HEPATIC, CBC, BMP #### [place] [address] USATroponin I.cardiac [Mass/volume] in Serum or Plasma by Detection limit <= 0.01 ng/Ordered By: Dedra Mcallister on 00-07-8616Pbsdotly I.cardiac DL <= 0.01 ng/mL [Mass/Vol]Troponin I.cardiac [Mass/volume] in Serum or Plasma by Detection limit <= 0.01 ng/0-[address] [place] [address] Comment on above:The Troponin units of report have been changed to meet the Chest Pain Accreditation requirement, element EC5.M1l2. Troponin units are changed from pg/ml to ng/L. Also, the decimal is removed and results are in whole numbers.Troponin I.cardiac [Mass/volume] in Serum or Plasma by Detection limit <= 0.01 ng/mLOrdered By: Dedra Mcallister on 81-71-7569Vndguwaq I.cardiac DL <= 0.01 ng/mL [Mass/Vol]4 ng/LOhio State Health SystemComment on above:The Troponin units of report have been changed to meet the Chest Pain Accreditation requirement, element EC5.M1l2. Troponin units are changed from pg/ml to ng/L. Also, the decimal is removed and results are in whole numbers. Urea nitrogen [Mass/volume] in Serum or PlasmaOrdered By: Dedra Mcallister on 91-47-5327Idqd nitrogen [Mass/Vol]Urea nitrogen [Mass/volume] in Serum or Plasma 02-06Ohio State Health SystemUrobilinogen Test strip (U) [Mass/Vol] Ordered By: Dedra Mcallister on 05-69-1295Alccyemenuxf (U) [Mass/Vol]Urobilinogen [Mass/volume] in Urine by Test stripNoCleveland Clinic Foundation Urobilinogen (U) [Mass/Vol]Normal mg/dLPremier Health Upper [facility] WBC Auto (Bld) [#/Vol]Ordered By: Dedra Mcallister on 28-79-7473HEQ (Bld) [#/Vol] Leukocytes [#/volume] in Blood by Automated countVeterans Affairs Medical Center3.8-11.6FOhio State University Wexner Medical CenterpH Test strip (U)Ordered By: Dedra Mcallister on 57-95-8731uI (U)pH of Urine by Test strip5.0-9.0[facility] State Health SystemCreatinine [Mass/volume] in UrineOrdered By: Ludy Arnett on 10-19-4243Pogqdytghc (U) [Mass/Vol]Creatinine [Mass/volume] in UrineOhio State Health System Comment on above:No reference range establishedMicroAlb Creat Ratio,Uon 85-18-1154Mzmqdsm DL <= 20 mg/L (U) [Mass/Vol]mg/dLNormal0.0-1.8[facility] Physician GroupComment on above:Performed By: #### QUANT TB, HBSAG, HCV RX PCR #### [facility] , #### LIPID, HEPATIC, CBC, BMP #### [facility] [address] [place] [address] USACreatinine, Urine (Random)57.00 mg/dLNoalThCaribou Memorial Hospital Physician GroupComment on above:Result Comment: No reference range established Performed By: #### QUANT TB, HBSAG, HCV RX PCR #### [facility] , #### LIPID, HEPATIC, CBC, BMP #### [facility] [address] [place] [address] USAMicroalbumin/Creatinine RatioNot performedNormal0.0-30.0 [facility] Physician [facility] County HospitalComment on above:Result Comment: PERFORMED BY: [place] [address] PATHOLOGIST EXTRUSION DIE REPAIR MANAGER GM ORR M.D.Performed By: #### QUANT TB, HBSAG, HCV RX PCR #### [facility] , #### LIPID, HEPATIC, CBC, BMP #### [facility] [address] [place] [address] USAMicroalbumin [Mass/volume] in UrineOrdered By: Tondra Verous on 51-02-2613Ekxbnqd DL <= 20 mg/L (U) [Mass/Vol]Microalbumin [Mass/volume] in Urine0.0-1.8Ohio State Health SystemUrine microalbumin/creatinine mass ratioOrdered By: Tondra Verous on 11-14-2024 Albumin/Creatinine DL <= 20 mg/L (U) [Mass ratio]Urine microalbumin/creatinine mass ratioOhio State Health SystemComment on above:Test not performed Alanine aminotransferase [Enzymatic activity/volume] in Serum or PlasmaOrdered By: Ludy Arnett on 43-66-3682XXG [Catalytic activity/Vol]Alanine aminotransferase [Enzymatic activity/volume] in Serum or Plasma7-52Ohio State Health SystemAlbumin [Mass/volume] in Serum or Plasma by Bromocresol green (BCG) dye binding methoOrdered By: Ludy Arnett on 09-89-7076Quixmgm BCG dye [Mass/Vol]Albumin [Mass/volume] in Serum or Plasma by Bromocresol green (BCG) dye binding metho3.5-5.7FOhio State University Wexner Medical CenterAlkaline phosphatase [Enzymatic activity/volume] in Serum or PlasmaOrdered By: Ludy Arnett on 64-61-8219VRC [Catalytic activity/Vol]Alkaline phosphatase [Enzymatic activity/volume] in Serum or Urtees06-868BiymbalsoOhio State Health System Aspartate aminotransferase [Enzymatic activity/volume] in Serum or PlasmaOrdered By: Ludy Arnett on 82-89-0925ENX [Catalytic activity/Vol]Aspartate aminotransferase [Enzymatic activity/volume] in Serum or Hrblsz37-93UetwbdmwtOhio State Health SystemBilirubin.total [Mass/volume] in Serum or PlasmaOrdered By: Ludy Arnett on 95-00-0486Zrmcegqqt [Mass/Vol]Bilirubin.total [Mass/volume] in Serum or Plasma0.3-1.0[facility] State Health SystemC-peptide measurement Ordered By: Ludy Arnett on 82-56-1449A-Peptide3.0 ng/mLNormal1.1-4.4FOhio State University Wexner Medical CenterComment on above:C-Peptide reference interval is for fasting patients.Performed at: [facility] [id number] Director: Sherif Mccord PhD, Phone: [phone] Comment: Comment fastingResult Comment: C-Peptide reference interval is for fasting patients. Performed at: [facility] [id number] [employer] Assistant: Sherif Mccord PhD, Phone: [phone] PERFORMED BY: [facility] [address] [place] [address] PATHOLOGIST EXTRUSION DIE REPAIR MANAGER GM ORR M.D.Performed By: #### QUANT TB, HBSAG, HCV RX PCR #### [facility] , #### LIPID, HEPATIC, CBC, BMP #### [facility] [address] [place] [address] USACalcium [Mass/volume] in Serum or PlasmaOrdered By: Kathya Melquiades on 24-08-0666Tealltq [Mass/Vol]Calcium [Mass/volume] in Serum or Plasma 8.6-10.3FOhio State University Wexner Medical CenterCarbon dioxide, total [Moles/volume] in Serum or PlasmaOrdered By: Tondra Mapus on 64-85-6873PT3 [Moles/Vol]Carbon dioxide, total [Moles/volume] in Serum or Msveon15.0-31.0Ohio State Health SystemChloride [Moles/volume] in Serum or PlasmaOrdered By: Tondra Mapus on 21-20-7876Tidoacjh [Moles/Vol]Chloride [Moles/volume] in Serum or Plasma 98-107Ohio State Health SystemCholesterol [Mass/volume] in Serum or PlasmaOrdered By: Tondra Mapus on 72-81-5776Twfsnafboyi [Mass/Vol]Cholesterol [Mass/volume] in Serum or Lcqmia603-832DdtowqkvvOhio State Health SystemComment on above:Chol less than 200 mg/dl low riskChol 201-239 mg/dl borderline riskChol 240 mg/dl and greater high riskCholesterol in HDL [Mass/volume] in Serum or PlasmaOrdered By: Tondra Mapus on 75-29-2413Knsdmtplpuj in HDL [Mass/Vol]Serum or plasma high density lipoprotein (HDL) cholesterol -78NjwbncfjlOhio State Health SystemComment on above:HDL CHOL ATP-III CLASSIFICATION Cardiovascular RiskHDL > or equal to 60 mg/dL LOWHDL < 40 mg/dL HIGHCholesterol in LDL Calc [Mass/Vol]Ordered By: Tondra Mapus on 88-75-0654Rsipsollyal in LDL [Mass/Vol]Cholesterol in LDL [Mass/volume] in Serum or Plasma by calculationHigh 0-100Ohio State Health SystemComment on above:LDL ATP III CLASSIFICATIONLDL less than 100 mg/dL OptimalLDL 100-129 mg/dL Near or above xlbvprbZMG548-151 mg/dL Borderline highLDL 160-189 mg/dL HighLDL greater than 189 mg/dL Very highCholesterol in VLDL Calc [Mass/Vol]Ordered By: Ludy Arnett on 92-36-3962Dcopjrtqahv in VLDL [Mass/Vol]Cholesterol in VLDL [Mass/volume] in Serum or Plasma by calculationOhio State Health SystemComprehensive Metabolic Panelon 20-84-6039Yxgxjdq [Mass/Vol]4.1 g/dLNormal3.5-5.7[facility] Physician GroupComment on above:Order Comment: Comment fastingPerformed By: #### QUANT TB, HBSAG, HCV RX PCR #### [facility] , #### LIPID, HEPATIC, CBC, BMP #### [facility] [address] [place] [address] USAAlbumin/Globulin [Mass ratio]1.6 {ratio}NormalThe [facility] Physician GroupComment on above:Order Comment: Comment fasting Performed By: #### QUANT TB, HBSAG, HCV RX PCR #### [facility] , #### LIPID, HEPATIC, CBC, BMP #### [facility] [address] [place] [address] USAALP [Catalytic activity/Vol]63 U/MUqderj36-802Myd [facility] Physician GroupComment on above:Order Comment: Comment fasting Performed By: #### QUANT TB, HBSAG, HCV RX PCR #### [facility] , #### LIPID, HEPATIC, CBC, BMP #### [facility] [address] [place] [address] USAALT [Catalytic activity/Vol]14 U/LNormal7-52The [facility] Physician GroupComment on above:Order Comment: Comment fastingPerformed By: #### QUANT TB, HBSAG, HCV RX PCR #### [facility] , #### LIPID, HEPATIC, CBC, BMP #### [place] [address] USAAnion gap [Moles/Vol]12.4 mmol/LNormal6.0-15.0The [facility] Physician GroupComment on above:Order Comment: Comment fasting Performed By: #### QUANT TB, HBSAG, HCV RX PCR #### [facility] , #### LIPID, HEPATIC, CBC, BMP #### [place] [address] USAAST [Catalytic activity/Vol]19 U/SHuhatr68-78Uoy [facility] Physician GroupComment on above:Order Comment: Comment fastingPerformed By: #### QUANT TB, HBSAG, HCV RX PCR #### [facility] , #### LIPID, HEPATIC, CBC, BMP #### [place] [address] USABilirubin [Mass/Vol]0.6 mg/dLNormal0.3-1.0[facility] Physician GroupComment on above:Order Comment: Comment fastingPerformed By: #### QUANT TB, HBSAG, HCV RX PCR #### [facility] , #### LIPID, HEPATIC, CBC, BMP #### [place] [address] USACalcium [Mass/Vol]10.1 mg/dLNormal8.6-10.3The [facility] Physician GroupComment on above:Order Comment: Comment fastingPerformed By: #### QUANT TB, HBSAG, HCV RX PCR #### [facility] , #### LIPID, HEPATIC, CBC, BMP #### [place] [address] USAChloride [Moles/Vol]102 mmol/WPftxap56-209Oei [facility] Physician GroupComment on above:Order Comment: Comment fastingPerformed By: #### QUANT TB, HBSAG, HCV RX PCR #### [facility] , #### LIPID, HEPATIC, CBC, BMP #### [place] [address] USACO2 [Moles/Vol]26.1 mmol/NWwqewj45.0-31.0The [facility] Physician GroupComment on above:Order Comment: Comment fastingPerformed By: #### QUANT TB, HBSAG, HCV RX PCR #### [facility] , #### LIPID, HEPATIC, CBC, BMP #### [place] [address] USACreatinine [Mass/Vol]0.77 mg/dLNormal0.60-1.20The [facility] Physician GroupComment on above:Order Comment: Comment fasting Performed By: #### QUANT TB, HBSAG, HCV RX PCR #### [facility] , #### LIPID, HEPATIC, CBC, BMP #### [place] [address] USAGFR/1.73 sq M.predicted MDRD (S/P/Bld) [Vol rate/Area] mL/min/{1.73_m2}NormalThe [facility] Physician GroupComment on above:Order Comment: Comment fastingPerformed By: #### QUANT TB, HBSAG, HCV RX PCR #### [facility] , #### LIPID, HEPATIC, CBC, BMP #### [place] [address] USAGlobulin (S) [Mass/Vol]2.6 g/dLNormalThe [facility] Physician GroupComment on above:Order Comment: Comment fastingPerformed By: #### QUANT TB, HBSAG, HCV RX PCR #### [facility] , #### LIPID, HEPATIC, CBC, BMP #### [place] [address] USAGlucose [Mass/Vol]100 mg/pURgmyvw59-208Meu [facility] Physician GroupComment on above:Order Comment: Comment fastingResult Comment: Random Glucose Reference Range is dependent on time and content of last meal. Glucose of more than 200 mg/dL in a nonstressed, ambulatory subject supports the diagnosis of Diabetes Mellitus. ADA recommended reference rangePerformed By: #### QUANT TB, HBSAG, HCV RX PCR #### [facility] , #### LIPID, HEPATIC, CBC, BMP #### [place] [address] USAPotassium [Moles/Vol]4.5 mmol/LNormal3.5-5.1The [facility] Physician GroupComment on above:Order Comment: Comment fastingPerformed By: #### QUANT TB, HBSAG, HCV RX PCR #### [facility] , #### LIPID, HEPATIC, CBC, BMP #### [place] [address] USAProtein [Mass/Vol]6.7 g/dLNormal6.4-8.9The [facility] Physician GroupComment on above:Order Comment: Comment fastingPerformed By: #### QUANT TB, HBSAG, HCV RX PCR #### [facility] , #### LIPID, HEPATIC, CBC, BMP #### [place] [address] USASodium [Moles/Vol]136 mmol/RTfptge854-271Pof [facility] Physician GroupComment on above:Order Comment: Comment fastingPerformed By: #### QUANT TB, HBSAG, HCV RX PCR #### [facility] , #### LIPID, HEPATIC, CBC, BMP #### [place] [address] USAUrea nitrogen [Mass/Vol]16 mg/dLNormal7-25The [facility] Physician GroupComment on above:Order Comment: Comment fastingPerformed By: #### QUANT TB, HBSAG, HCV RX PCR #### [facility] , #### LIPID, HEPATIC, CBC, BMP #### [place] [address] USACreatinine [Mass/volume] in Serum or PlasmaOrdered By: Ludy Arnett on 28-78-8718Yhxdzyltsp [Mass/Vol]Creatinine [Mass/volume] in Serum or Plasma0.60-1.20Ohio State Health SystemGlobulin Calc (S) [Mass/Vol] Ordered By: Ludy Arnett on 38-57-8776Nhtaioww (S) [Mass/Vol]Serum globulin measurement by calculation (mass/volume)[facility] State Health SystemGlucose [Mass/volume] in Serum or PlasmaOrdered By: Ludy Arnett on 35-92-8968Mmusxtg [Mass/Vol]Glucose [Mass/volume] in Serum or Ysnbxe23-356JtdzyjpxeOhio State Health SystemComment on above:ADA recommended reference rangeRandom Glucose Reference Range is dependent on time and content of last meal. Glucose of more than 200 mg/dL in a nonstressed, ambulatory subject supports the diagnosisof Diabetes Mellitus.Lipid Panelon 19-53-4425Bvkcywhobws [Mass/Vol]199 mg/dLNormal 140-200The [facility] Physician GroupComment on above:Order Comment: Comment fastingResult Comment: Chol less than 200 mg/dl low risk Chol 201-239 mg/dl borderline risk Chol 240 mg/dl and greater high riskPerformed By: #### QUANT TB, HBSAG, HCV RX PCR #### [facility] , #### LIPID, HEPATIC, CBC, BMP #### [facility] [address] [place] [address] USACholesterol in HDL [Mass/Vol]62 mg/dMKhqlqd70-74Ezc [facility] Physician GroupComment on above:Order Comment: Comment fastingResult Comment: HDL CHOL ATP-III CLASSIFICATION Cardiovascular Risk HDL > or equal to 60 mg/dL LOW HDL < 40 mg/dL HIGHPerformed By: #### QUANT TB, HBSAG, HCV RX PCR #### [facility] , #### LIPID, HEPATIC, CBC, BMP #### [facility] [address] [place] [address] USACholesterol.total/Cholesterol in HDL [Mass ratio]3.2 {ratio}Normal<5.0The [facility] GroupComment on above:Order Comment: Comment fastingPerformed By: #### QUANT TB, HBSAG, HCV RX PCR #### [facility] , #### LIPID, HEPATIC, CBC, BMP #### [facility] [address] [place] [id number] USALDL Cholesterol,Hkjvrnxfpj115 mg/dLHigh0-100The [facility] Physician GroupComment on above:Order Comment: Comment fastingResult Comment: LDL ATP III CLASSIFICATION LDL less than 100 mg/dL Optimal LDL 100-129 mg/dL Near or above optimal LDL 130-159 mg/dL Borderline high LDL 160-189 mg/dL High LDL greater than 189 mg/dL Very highPerformed By: #### QUANT TB, HBSAG, HCV RX PCR #### [facility] , #### LIPID, HEPATIC, CBC, BMP #### [facility] [address] [place] [address] USATriglyceride w/Onzfvf929 mg/dLNormal0-149The [facility] Physician GroupComment on above:Order Comment: Comment fastingResult Comment: TRIG ATP III CLASSIFICATION TRIG less than 150 mg/dL Normal TRIG 150-199 mg/dL Borderline high TRIG 200-500 mg/dL High TRIG greater than 500 mg/dL Very high Standard traceable to the Center for Disease Conrtrol and Prevention (CDC) test method.Performed By: #### QUANT TB, HBSAG, HCV RX PCR #### [facility] , #### LIPID, HEPATIC, CBC, BMP #### [facility] [address] [place] [id number] USAVLDL BUXFMNOGAYV84 mg/dLNormalThe [facility] Physician GroupComment on above:Order Comment: Comment fastingPerformed By: #### QUANT TB, HBSAG, HCV RX PCR #### [facility] , #### LIPID, HEPATIC, CBC, BMP #### [facility] [address] [place] [id number] USANo Panel InformationOrdered By: Ludy Arnett on 11-13-2024 Estimated GFR (CKD-EPI)> 60.0 mL/MinOhio State Health SystemPharmacy Creatinine Clearance (ChemN/[facility], IncPotassium [Moles/volume] in Serum or PlasmaOrdered By: Ludy Arnett on 06-98-2629Vdowopoui [Moles/Vol]Potassium [Moles/volume] in Serum or Plasma3.5-5.1FOhio State University Wexner Medical CenterProtein [Mass/volume] in Serum or PlasmaOrdered By: Ludy Arnett on 25-21-5212Fsqprut [Mass/Vol]Protein [Mass/volume] in Serum or Plasma6.4-8.9 OhioHealtherum or plasma albumin/globulin mass ratio Ordered By: Ludy Arnett on 46-32-6035Iqgzxgp/Globulin [Mass ratio]Serum or plasma albumin/globulin mass ratioOhioHealtherum or plasma anion gap determinationOrdered By: Ludy Arnett on 44-66-6655Izmkx gap [Moles/Vol]Serum or plasma anion gap determination6.0-15.0OhioHealtherum or plasma total cholesterol/high density lipoprotein (HDL) cholesterol mass ratOrdered By: Ludy Arnett on 11-13-2024 Cholesterol.total/Cholesterol in HDL [Mass ratio]Serum or plasma total cholesterol/high density lipoprotein (HDL) cholesterol mass rat<5.0OhioHealthodium [Moles/volume] in Serum or PlasmaOrdered By: Ludy Arnett on 58-06-7683Brcbts [Moles/Vol]Sodium [Moles/volume] in Serum or Udgqwm906-549VnepkhphnOhio State Health SystemTriglyceride [Mass/volume] in Serum or PlasmaOrdered By: Ludy Arnett on 78-32-4945Itxmasamvbug [Mass/Vol] Triglyceride [Mass/volume] in Serum or Plasma0-149[facility] State Health SystemComment on above:TRIG ATP III CLASSIFICATIONTRIG less than 150 mg/dL NormalTRIG 150-199 mg/dL Borderline highTRIG 200-500 mg/dL High TRIG greater than 500 mg/dL Very highStandard traceable to the Center for Disease Conrtrol and Prevention (CDC) test method.Urea nitrogen [Mass/volume] in Serum or Plasma Ordered By: Ludy Arnett on 06-98-0589Sofc nitrogen [Mass/Vol]Urea nitrogen [Mass/volume] in Serum or Plasma7-25[facility] State Health SystemVitamin B12 on 18-40-8546Vmziwisgc (Vitamin B12) [Mass/Vol]398 pg/zGUqtxnw851-877Kwp [facility] Physician GroupComment on above:Order Comment: Comment fastingResult Comment: PERFORMED BY: [facility] [address] [place] [address] PATHOLOGIST EXTRUSION DIE REPAIR MANAGER GM ORR M.D.Performed By: #### QUANT TB, HBSAG, HCV RX PCR #### [facility] , #### LIPID, HEPATIC, CBC, BMP #### [facility] [address] StreetVitamin B12 ser/plasOrdered By: Ludy Arnett on 11-13-2024 Cobalamin (Vitamin B12) [Mass/Vol]Vitamin B12 ser/wmnb284-053KmdnfmmnfOhio State Health SystemHbA1c HPLC (Bld) [Mass fraction]on 06-45-6880XgG7v (Bld) [Mass fraction]Hemoglobin A1c/Hemoglobin.total in Blood by HPLCOhio State Health SystemNo Panel Informationon 11-70-0112Ijlgbou Ctcmwff419KfdjtfoldOhio State Health SystemCNPNon 70-22-2167SSVJDvuheuodm (GASTMN) LAURA STEPHENSON ([id number]) 1960 F Date Time Provider Department 10/13/24 ASHU MITTAL GASTMN During your visit today, we recorded the following information about you: Michaela Camara 10/13/2024 11:22 AM Signed [facility] called Patient Entyvio is not covered by the plan even with a PA They reached out to patients insurance company to see what would be covered and they listed the following Shaun Osorio These will require a PA but are on patient formulary. [facility] need [facility] sent Provided a fax number of [phone] Janell Gallo, MINAL 10/14/2024 1:09 PM Signed Contacted [employer] via email communication for clarification, as we received notice that pt has already been approved for Entyvio and will be scheduled for infusion soon. Awaiting response. Janell Gallo RN October 14, 2024 1:07 PM Janell Gallo RN 10/16/2024 3:42 PM Signed Received notice from [facility], that pt is scheduled for Entyvio infusion tomorrow. Janell Gallo RN October 16, 2024 3:42 PM Allergies As of Date: 10/13/2024 Noted Allergy Reaction AZITHROMYCIN 11/23/2012 16 - Unknown METRONIDAZOLE 03/12/2003 9 - Itching Comments: Itching and redness NAPROXEN 03/12/2003 PENICILLINS 03/12/2003 SULFA (SULFONAMIDE ANTIBIOTICS) 03/12/2003 16 - Unknown VANCOMYCIN 07/05/2021 2 - Rash Date Reviewed: 09/18/2024 Reviewed by: Lizeth Hernandez LPN - Fully Assessed Reason for Visit: Medication Problem [65] Cmt: Entyvio not covered Prescriptions as of 10/16/2024 - vedolizumab (ENTYVIO) 300 mg injection Infuse 300 mg at week 0, 2, 6, then every 8 weeks thereafter. - ergocalciferol 50,000 unit capsule (VITAMIN D2, DRISDOL) Take 1 capsule by mouth one time a week. - ciprofloxacin HCl (CIPRO) 500 mg tablet Take 1 tablet by mouth two times a day. Two weeks; Two week off - diphenoxylate-atropine (LOMOTIL) 2.5-0.025 mg per tablet TAKE 1 TABLET BY MOUTH 3 OR 4 TIMES DAILY NEEDED - Cholecalciferol, Vitamin D3, (VITAMIN D) 25 mcg (1,000 unit) cap Take 1 capsule by mouth once daily. - atenolol (TENORMIN) 25 mg tablet Take 1 tablet by mouth once daily. - spironolactone (ALDACTONE) 25 mg tablet Take 1 tablet by mouth every afternoon. - magnesium oxide (MAG-OX) 400 mg (241.3 mg magnesium) tablet Take 1 tablet by mouth every afternoon. - ferrous sulfate 325 mg (65 mg iron) tablet Take 325 mg by mouth five times a week. - mecobalamin, vitamin B12, 1,000 mcg chew Take by mouth once daily. - Syringe with Needle, Disp, 3 mL 25 gauge x 1 1 Syringe as directed. - metFORMIN ER (GLUCOPHAGE XR) 500 mg 24 hr tablet TAKE 1 TABLET BY MOUTH EVERY DAY IN THE EVENING WITH MEAL - insulin lispro (HUMALOG KWIKPEN INSULIN) 100 unit/mL Inject 0-10 units three times daily following the sliding scale: If Blood Glucose (mg/dL) is <110 Give 0 units 111-150 Give 0 units 151-200 Give 2 unit 201-250 Give 4 units 251-300 Give 6 units 301-350 Give 8 units 351-400 Give 10 units >400 give 10units and notify provider. - Insulin [place], Disposable, (BD ULTRA-FINE MIN PEN NEEDLE) 32 gauge x 5/32 1 Each three times daily. - blood sugar diagnostic (TradeCardUCH VERIO TEST STRIPS) test strip Use as instructed three times daily - lancets (TradeCardUCH DELICA PLUS LANCET) 33 gauge 1 Each three times daily. - vedolizumab (ENTYVIO) 300 mg injection Infuse 300 mg every 4 weeks. - Lactobacillus acidophilus (PROBIOTIC ORAL) Take by mouth. - levothyroxine (SYNTHROID) 150 mcg tablet Take 1 tablet by mouth once daily. - Omeprazole 40 mg capsule Take 40 mg by mouth once daily. - FLUoxetine (PROZAC) 20 mg capsule Take 20 mg by mouth once daily. Problem List As Of Date 10/13/2024 Noted Resolved SBO (small bowel obstruction) (HCC) [K56.609] 09/18/2020 Pain in left ankle and joints of left foot [M25*11/01/2020 Pain in right ankle and joints of right foot [M*10/26/2020 Pain in right foot [M79.671] 11/01/2020 Pain in left foot [M79.672] 04/05/2021 IPMN (intraductal papillary mucinous neoplasm) *12/08/2021 12/26/2021 BMI 38.0-38.9,adult [Z68.38] 12/08/2021 Hypertension [I10] 12/08/2021 Gastroesophageal reflux disease without esophag*12/08/2021 Pancreatic cyst [K86.2] 12/09/2021 Chronic pain of left knee [M25.562, G89.29] 12/09/2021 DVT prophylaxis [PPM9655] 12/20/2021 Post-operative pain [G89.18] 12/20/2021 Depression [F32.A] 12/20/2021 Hypothyroidism [E03.9] 12/20/2021 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, 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/16/2022 Obesity, Class I, BMI 30-34.9 [E66.811] 12/15/2022 Crohn's disease of small intestine with complic*03/27/2023 Small bowel obstruction (HCC) [K56.609] 10/25/2023 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/08/2023 Iron deficiency anemia secondary to inadequate *11/08/2023 Encounter Status:Closed by MICHAELA CAMARA (more content not included)...Normal [facility] HospitalCNPNon [id number] (GASTMN) LAURA STEPHENSON ([id number]) 1960 F Date Time Provider Department 09/30/24 ASHU MITTAL GASTTX During your visit today, we recorded the following information about you: Vicky Emanuel 09/30/2024 12:22 PM Signed Patient called in - requesting to talk with Janell please call her when you have a moment Pt Janell Gallo, MINAL 09/30/2024 3:22 PM Signed Contacted pt and provided an update regarding [facility] [place] still in [place] for Veronique. Janell Galol RN September 30, 2024 3:16 PM Janell Gallo, MINAL 10/09/2024 2:53 PM Signed Received the following update from [facility] [place] the patient Hi Patient is approved. We are trying to get a hold of her. Attempted to reach pt. No answer. Left message to contact [facility]. Janell Gallo RN October 09, 2024 2:52 PM Janell Gallo RN 10/10/2024 2:37 PM Signed PharmacistRadha, from [facility] calling to verify if Dr. Mittal wants to just resume pt's Entyvio at every 4 weeks or if patient needs to restart with loading doses, as the patient has not had an infusion since May due to an insurance delay. Please call [phone] with provider's decision. Janell Gallo RN October 10, 2024 2:34 PM Janell Gallo RN 10/10/2024 3:20 PM Signed Addended by: JANELL GALLO on: 10/10/2024 03:20 PM Modules accepted: Orders Ashu Mittal MD 10/13/2024 8:56 AM Signed Addended by: ASHU MITTAL on: 10/13/2024 08:56 AM Modules accepted: Orders Janell Gallo RN 10/13/2024 9:35 AM Addendum Ashu Mittal MD You3 days ago We need to reinduce Contacted pharmacist Radha back and provided verbal orders per Dr. Mittal to re-induce pt with Entyvio, then resume maintenance at every 4 week. Pharmacist verbalized understanding of orders. Janell Gallo RN October 13, 2024 9:28 AM Allergies As of Date: 09/30/2024 Noted Allergy Reaction AZITHROMYCIN 11/23/2012 16 - Unknown METRONIDAZOLE 03/12/2003 9 - Itching Comments: Itching and redness NAPROXEN 03/12/2003 PENICILLINS 03/12/2003 SULFA (SULFONAMIDE ANTIBIOTICS) 03/12/2003 16 - Unknown VANCOMYCIN 07/05/2021 2 - Rash Date Reviewed: 09/18/2024 Reviewed by: Lizeth Hernandez LPN - Fully Assessed Reason for Visit: Patient Update [1234] Order(s):vedolizumab (ENTYVIO) 300 mg injectionInfuse 300 mg at week 0, 2, 6, then every 8 weeks thereafter.Disp: 8 EachRfl: 6 Prescriptions as of 10/13/2024 - vedolizumab (ENTYVIO) 300 mg injection Infuse 300 mg at week 0, 2, 6, then every 8 weeks thereafter. - ergocalciferol 50,000 unit capsule (VITAMIN D2, DRISDOL) Take 1 capsule by mouth one time a week. - ciprofloxacin HCl (CIPRO) 500 mg tablet Take 1 tablet by mouth two times a day. Two weeks; Two week off - diphenoxylate-atropine (LOMOTIL) 2.5-0.025 mg per tablet TAKE 1 TABLET BY MOUTH 3 OR 4 TIMES DAILY NEEDED - Cholecalciferol, Vitamin D3, (VITAMIN D) 25 mcg (1,000 unit) cap Take 1 capsule by mouth once daily. - atenolol (TENORMIN) 25 mg tablet Take 1 tablet by mouth once daily. - spironolactone (ALDACTONE) 25 mg tablet Take 1 tablet by mouth every afternoon. - magnesium oxide (MAG-OX) 400 mg (241.3 mg magnesium) tablet Take 1 tablet by mouth every afternoon. - ferrous sulfate 325 mg (65 mg iron) tablet Take 325 mg by mouth five times a week. - mecobalamin, vitamin B12, 1,000 mcg chew Take by mouth once daily. - Syringe with Needle, Disp, 3 mL 25 gauge x 1 1 Syringe as directed. - metFORMIN ER (GLUCOPHAGE XR) 500 mg 24 hr tablet TAKE 1 TABLET BY MOUTH EVERY DAY IN THE EVENING WITH MEAL - insulin lispro (HUMALOG KWIKPEN INSULIN) 100 unit/mL Inject 0-10 units three times daily following the sliding scale: If Blood Glucose (mg/dL) is <110 Give 0 units 111-150 Give 0 units 151-200 Give 2 unit 201-250 Give 4 units 251-300 Give 6 units 301-350 Give 8 units 351-400 Give 10 units >400 give 10units and notify provider. - Insulin [place], Disposable, (BD ULTRA-FINE MIN PEN NEEDLE) 32 gauge x 5/32 1 Each three times daily. - blood sugar diagnostic (BiBCOMTOUCH VERIO TEST STRIPS) test strip Use as instructed three times daily - lancets (BiBCOMTOUCH DELICA PLUS LANCET) 33 gauge 1 Each three times daily. - vedolizumab (ENTYVIO) 300 mg injection Infuse 300 mg every 4 weeks. - Lactobacillus acidophilus (PROBIOTIC ORAL) Take by mouth. - levothyroxine (SYNTHROID) 150 mcg tablet Take 1 tablet by mouth once daily. - Omeprazole 40 mg capsule Take 40 mg by mouth once daily. - FLUoxetine (PROZAC) 20 mg capsule Take 20 mg by mouth once daily. Problem List As Of Date 09/30/2024 Noted Resolved SBO (small bowel obstruction) (HCC) [K56.609] 09/18/2020 Pain in left ankle and joints of left foot [M25*11/01/2020 Pain in right ankle and joints of right foot [M*10/26/2020 Pain in right foot [M79.671] 11/01/2020 Pain in left foot [M79.672] 04/05/2021 IPMN (intraductal papillary mucinous beto (more content not included)...Normal [facility]25([place])D3 [facility] Hospitalon 488893-boaprfdwqbjojv D3 [Mass/Vol]30.8 ng/mLLow31.0-80.0[facility] HospitalComment on above:Order Comment: Specimen Type: BLOOD SPECIMEN Ordering Facility: [facility] Address: [address] [place], [place] [address]Result Comment: Classification of 25 [place] Vitamin D status: Deficiency/Insufficiency: < or = 30 ng/ml. Sufficiency/Optimal Levels: 31-80 ng/mL Toxicity: > 100 ng/mL. Test performed by chemiluminescent immunoassay.Performed By: #### [id number] #### [facility] CLIA [id number] [address] [place] [address] 1588440-ptucabtyfbfqvb D3 [Mass/Vol]on 70-99-0205Gqtpsuflaivyrd and review of laboratory resultsAbnormalCkettering health washington townshipand ClinicThe reference range interval was based on an analysis of samples from healthy adults and may not per tain to children from 0-18 years old. [facility] InstituteCNPNon 87-58-8987YXVHFdcrepabc (GASTMN) LAURA STEPHENSON ([id number]) 1960 F Date Time Provider Department 09/18/24 TOMASA WAKEFIELD GASTMN During your visit today, we recorded the following information about you: Tomasa Wakefield, DARBY.SEED SERVICE ADVISOR 09/18/2024 1:50 PM Signed This gal says she has not had Entyvio since Apr. [place] [facility] us know so we can figure out if she needs re-induction or should just go back to every 4, thanks! Janell Gallo, MINAL 09/23/2024 2:45 PM Signed Contacted pt, she stated that she received a call from [facility] today stating that they are waiting on determination back from her insurance and that they will contact her by Sunday with an update. Pt to report outcome to the office. Janell Gallo RN September 23, 2024 2:45 PM Allergies As of Date: 09/18/2024 Noted Allergy Reaction AZITHROMYCIN 11/23/2012 16 - Unknown METRONIDAZOLE 03/12/2003 9 - Itching Comments: Itching and redness NAPROXEN 03/12/2003 PENICILLINS 03/12/2003 SULFA (SULFONAMIDE ANTIBIOTICS) 03/12/2003 16 - Unknown VANCOMYCIN 07/05/2021 2 - Rash Date Reviewed: 09/18/2024 Reviewed by: Lizeth Hernandez LPN - Fully Assessed Reason for Visit: Medication Problem [65] Prescriptions as of 09/23/2024 - ergocalciferol 50,000 unit capsule (VITAMIN D2, DRISDOL) Take 1 capsule by mouth one time a week. - ciprofloxacin HCl (CIPRO) 500 mg tablet Take 1 tablet by mouth two times a day. Two weeks; Two week off - diphenoxylate-atropine (LOMOTIL) 2.5-0.025 mg per tablet TAKE 1 TABLET BY MOUTH 3 OR 4 TIMES DAILY NEEDED - Cholecalciferol, Vitamin D3, (VITAMIN D) 25 mcg (1,000 unit) cap Take 1 capsule by mouth once daily. - atenolol (TENORMIN) 25 mg tablet Take 1 tablet by mouth once daily. - spironolactone (ALDACTONE) 25 mg tablet Take 1 tablet by mouth every afternoon. - magnesium oxide (MAG-OX) 400 mg (241.3 mg magnesium) tablet Take 1 tablet by mouth every afternoon. - ferrous sulfate 325 mg (65 mg iron) tablet Take 325 mg by mouth five times a week. - mecobalamin, vitamin B12, 1,000 mcg chew Take by mouth once daily. - Syringe with Needle, Disp, 3 mL 25 gauge x 1 1 Syringe as directed. - metFORMIN ER (GLUCOPHAGE XR) 500 mg 24 hr tablet TAKE 1 TABLET BY MOUTH EVERY DAY IN THE EVENING WITH MEAL - insulin lispro (HUMALOG KWIKPEN INSULIN) 100 unit/mL Inject 0-10 units three times daily following the sliding scale: If Blood Glucose (mg/dL) is <110 Give 0 units 111-150 Give 0 units 151-200 Give 2 unit 201-250 Give 4 units 251-300 Give 6 units 301-350 Give 8 units 351-400 Give 10 units >400 give 10units and notify provider. - Insulin [place], Disposable, (BD ULTRA-FINE MIN PEN NEEDLE) 32 gauge x /32 1 Each three times daily. - blood sugar diagnostic (TradeCardUCH VERIO TEST STRIPS) test strip Use as instructed three times daily - lancets (BiBCOMTOUCH DELICA PLUS LANCET) 33 gauge 1 Each three times daily. - vedolizumab (ENTYVIO) 300 mg injection Infuse 300 mg every 4 weeks. - Lactobacillus acidophilus (PROBIOTIC ORAL) Take by mouth. - levothyroxine (SYNTHROID) 150 mcg tablet Take 1 tablet by mouth once daily. - Omeprazole 40 mg capsule Take 40 mg by mouth once daily. - FLUoxetine (PROZAC) 20 mg capsule Take 20 mg by mouth once daily. Problem List As Of Date 09/18/2024 Noted Resolved SBO (small bowel obstruction) (HCC) [K56.609] 09/18/2020 Pain in left ankle and joints of left foot [M25*11/01/2020 Pain in right ankle and joints of right foot [M*10/26/2020 Pain in right foot [M79.671] 11/01/2020 Pain in left foot [M79.672] 04/05/2021 IPMN (intraductal papillary mucinous neoplasm) *12/08/2021 12/26/2021 BMI 38.0-38.9,adult [Z68.38] 12/08/2021 Hypertension [I10] 12/08/2021 Gastroesophageal reflux disease without esophag*12/08/2021 Pancreatic cyst [K86.2] 12/09/2021 Chronic pain of left knee [M25.562, G89.29] 12/09/2021 DVT prophylaxis [QUB5879] 12/20/2021 Post-operative pain [G89.18] 12/20/2021 Depression [F32.A] 12/20/2021 Hypothyroidism [E03.9] 12/20/2021 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, Z90.*02/16/2022 Obesity, Class I, BMI 30-34.9 [E66.811] 12/15/2022 Crohn's disease of small intestine with complic*03/27/2023 Small bowel obstruction (HCC) [K56.609] 10/25/2023 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/08/2023 Iron deficiency anemia secondary to inadequate *11/08/2023 Encounter Status:Closed by TOMASA WAKEFIELD on 09/18/24NormalCleveland [facility] SerPl-ncon 50-19-5599AMJ [Mass/Vol]0.6 mg/dLNormal<0.9ClevelCape Fear/Harnett HealthComment on above:Order Comment: Specimen Type: BLOOD SPECIMEN Ordering Facility: [facility] Address: [address] [place], [place] [address]Performed By: #### 43100-2 #### [facility] CLIA [id number] [address] [place] [address] 80839RZE [Mass/Vol]on 12-58-5190Wyexocvbymfnka and review of laboratory resultsNormalCkettering health washington townshipand [facility] HospitalLaboratory - Chemistry and Chemistry - challengeon 423215-csskfdlwgoncju D3 [Mass/Vol]30.8 ng/mL Low31.0 - 80.0 ng/mLCleveland St. James Hospital And ClinicComment on above:Classification of 25 [place] Vitamin D status: Deficiency/Insufficiency: < or = 30 ng/ml. Sufficiency/Optimal Levels: 31-80 ng/mL Toxicity: > 100 ng/mL. Test performed by chemiluminescent immunoassay. TSH Qn0.025 m[IU]/LLowBerger Hospital [Mass/Vol]0.6 mg/dLNINF - 0.9 mg/dL [facility] Qn0.025 m[IU]/LLow0.270-4.200[facility] SystemNo Panel Informationon 14-55-5022Q-Reactive Protein, Quantitative0.6 mg/dL <0.9OhioHealtherum or plasma calcidiol measurement (mass/volume)on 641360-cxdeqhzbfsqfch D3 [Mass/Vol]Serum or plasma calcidiol measurement (mass/volume)Low31.0-80.0[facility] Comment on above:Classification of 25 [place] Vitamin D status: Deficiency/Insufficiency: < or = 30 ng/ml.Sufficiency/Optimal Levels: 31-80 ng/mLToxicity: > 100 ng/mL. Test performed by chemiluminescent immunoassay.TSH Qnon 65-69-2182Grhekdmpfszdou and review of laboratory resultsAbnormalCleveland [facility] SerPl-aCncon 06-52-1148FTK Qn0.025 m[IU]/LLow 0.270-4.200Day[facility]opathic HospitalComment on above:Order Comment: Specimen Type: BLOOD SPECIMEN Ordering Facility: [facility] Address: [address] [place], [place] [address]Performed By: #### 66044-8 #### [facility] CLIA [id number] [address] [place] [address] 79768LWCKRAzy [id number] (SP) Office (CYNDEE) LAURA STEPHENSON ([id number]) 1960 F Date Time Provider Department 09/05/24 11:00 AM ANA ENRIQUEZ During your visit today, we recorded the following information about you: Temperature Pulse Respiration Blood pressure 98.3 degrees 61/minute 16/minute 140/82 Weight 91 kg Ana Enriquez MD 09/05/2024 1:45 PM Signed NAME: Laura Stephenson CLINIC NO.: [id number] DATE OF SERVICE: September 05, 2024 (Marguerite) Some elements in this clinic note that are critical to medical decision making have been carefully reviewed and included from a prior clinic note dated: November 08, 2023 (Marguerite) Referring Provider: Ashu Mittal Additional Clinicians involved in Laura Stephenson's care: Alethea Vickers DIAGNOSIS: Thrombocytosis ASSESSMENT: 64 year old woman with 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 This remains stable today. In the course of her workup she was found to be mildly B12 and mildly iron deficient and she has been on oral supplements since January 2023. Her iron studies and b12 level are normal today. She is also on plaquenil and Otezla for psoriasis. Hyponatremia--Resolved PLAN: Continue iron and folic acid supplements Decrease oral B12 to 3 weeks a month RTC 24 weeks Labs 1 week before - HPI: CASE HISTORY: Reverse Chronological Order 10/26/2023 - EUA and pouchoscopy A, B. Pouch, afferent limb and inlet, biopsy: -Active enteritis -Negative for granulomas or dysplasia C. Pouch, body, biopsy: -Chronic mildly active enteritis -Negative for granulomas or dysplasia D. Anus, transitional zone, biopsy: -Predominantly intestinal mucosa with mild active enteritis -Negative for granulomas or dysplasia 12/12/2022 - MRI Pancreas: Postoperative changes distal pancreatectomy with mildly increased size of 1.3 cm cystic lesion in the uncinate process, likely sidebranch IPMN. Decreased postoperative fluid collection and fat necrosis. Hepatic steatosis. 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 Crohn's --s/p 1994, total colectomy, on Entyvio and follows GI Updated Visit, September 05, 2024: Here with Danyel Taking Otezla and plaquenil for psoriasis. Insurance is not covering her intivyo Reviewed labs and explained the thrombocythemia cause in her case. Continue taking iron, folate, B12 supplements. Updated Visit, November 08, 2023: Was admitted with bowel obstruction due to scar tissue from pouch - needed dilation. Otherwise is doing well. Labs are improved. Creatinine will recover. Enjoys baseball and reminisces about the old stadium. Updated Visit, August 15, 2023: Laura returns today to follow up. B12 looks great - decrease to 3 weeks a month. Folic acid is low - start taking supplement. Ferratin and Hgb are improving. She reports watery stool, likely caused by magnesium. Updated Visit, May 21, 2023: On Cipro now for pouchitis. She is taking iron daily 5 days a week. B12 orally daily. No BRB. Iron and B12 pending. Hgb stable. Updated Visit, February 16, 2023: Was noted to be B12 deficient Also appears to have iron deficiency anemia with decreased H/H and iron saturation and ferritin. Labs are stable otherwise. Blood sugars are elevated. Initial Visit, February 16, 2022: Laura Stephenson presents today Hematology and Oncology evaluation. She is a 61 year old female who underwent distal pancreas resection as well as splenectomy. She has resultant benign thrombocytosis that can be followed. She is recovering from surgery well. She has a prior history of UC and is following with GI. - REVIEW OF SYSTEMS Per HPI and otherwise negative by full review of organ systems. - ECOG PERFORMANCE STATUS: 1 PHYSICAL EXAMINATION: Vitals: BP 140/82 Pulse 61 Temp 36.8 ?C (98.3 ?F) Resp 16 Wt 91 kg (200 lb 9.9 oz) LMP 02/23/2011 SpO2 98% BMI 33.38 kg/m? Body surface area is 2.04 meters squared. Exam limited to gross visualization where appropriate. Gen.: This is an age-appropriate patient in no acute distress. Head: Appears atraumatic with no visible lesions. Eyes: Pupils equally round and reactive to light, extraocular muscles are intact. Neck: Supple. Respiratory: Appears to be respiring comfortably. Neurologic: Nonfocal to gross visualization. Alert and oriented ?3. Psychiatric: No evidence of inappropriate anxiety or depression. Skin: Visible areas of skin wit (more content not included)...NormalDayton Osteopathic HospitalAlanine aminotransferase [Enzymatic activity/volume] in Serum or PlasmaOrdered By: Alethea Vickers on 94-86-4045RPH [Catalytic activity/Vol] Alanine aminotransferase [Enzymatic activity/volume] in Serum or Plasma7-52 [facility] Health SystemAlbumin [Mass/volume] in Serum or Plasma by Bromocresol green (BCG) dye binding methoOrdered By: Alethea Vickers on 33-64-5787Wpnhwyt BCG dye [Mass/Vol]Albumin [Mass/volume] in Serum or Plasma by Bromocresol green (BCG) dye binding metho3.5-5.7FOhio State University Wexner Medical CenterAlkaline phosphatase [Enzymatic activity/volume] in Serum or PlasmaOrdered By: Alethea Vickers on 67-63-5030GKG [Catalytic activity/Vol]Alkaline phosphatase [Enzymatic activity/volume] in Serum or Glncld44-296RwvedqfqtOhio State Health SystemAspartate aminotransferase [Enzymatic activity/volume] in Serum or Plasma Ordered By: Alethea Vickers on 53-66-9651WKQ [Catalytic activity/Vol]Aspartate aminotransferase [Enzymatic activity/volume] in Serum or Oyrthw86-33LuozydfgdOhio State Health SystemBasic Metabolic Panelon 64-32-6539Gcppp gap [Moles/Vol] 8.8 mmol/LNormal6.0-15.0[facility] Physician GroupComment on above:Performed By: #### QUANT TB, HBSAG, HCV RX PCR #### [facility] , #### LIPID, HEPATIC, CBC, BMP #### [place] [address] USACalcium [Mass/Vol]10.2 mg/dLNormal8.6-10.3The [facility] Physician GroupComment on above:Performed By: #### QUANT TB, HBSAG, HCV RX PCR #### [facility] , #### LIPID, HEPATIC, CBC, BMP #### [place] [address] USAChloride [Moles/Vol]102 mmol/OAsybvl74-708Paz [facility] Physician GroupComment on above:Performed By: #### QUANT TB, HBSAG, HCV RX PCR #### [facility] , #### LIPID, HEPATIC, CBC, BMP #### [place] [address] USACO2 [Moles/Vol]28.8 mmol/WTwamxo86.0-31.0The [facility] Physician GroupComment on above:Performed By: #### QUANT TB, HBSAG, HCV RX PCR #### [facility] , #### LIPID, HEPATIC, CBC, BMP #### [place] [address] USACreatinine [Mass/Vol]0.73 mg/dLNormal0.60-1.20The [facility] Physician GroupComment on above:Performed By: #### QUANT TB, HBSAG, HCV RX PCR #### [facility] , #### LIPID, HEPATIC, CBC, BMP #### [facility] [address] [place] [address] USAGFR/1.73 sq M.predicted MDRD (S/P/Bld) [Vol rate/Area] mL/min/{1.73_m2}NormalThe [facility] Physician GroupComment on above:Performed By: #### QUANT TB, HBSAG, HCV RX PCR #### [facility] , #### LIPID, HEPATIC, CBC, BMP #### [place] [address] USAGlucose [Mass/Vol]102 mg/dXVnmf80-791Vrw [facility] Physician GroupComment on above:Result Comment: Random Glucose Reference Range is dependent on time and content of last meal. Glucose of more than 200 mg/dL in a nonstressed, ambulatory subject supports the diagnosis of Diabetes Mellitus. ADA recommended reference rangePerformed By: #### QUANT TB, HBSAG, HCV RX PCR #### [facility] , #### LIPID, HEPATIC, CBC, BMP #### [place] [address] USAPotassium [Moles/Vol]4.6 mmol/LNormal3.5-5.1The [facility] Physician GroupComment on above:Performed By: #### QUANT TB, HBSAG, HCV RX PCR #### [facility] , #### LIPID, HEPATIC, CBC, BMP #### [place] [address] USASodium [Moles/Vol]135 mmol/DSgx505-969Cia [facility] Physician GroupComment on above:Performed By: #### QUANT TB, HBSAG, HCV RX PCR #### [facility] , #### LIPID, HEPATIC, CBC, BMP #### [place] [address] USAUrea nitrogen [Mass/Vol]14 mg/dLNormal7-25The [facility] Physician GroupComment on above:Performed By: #### QUANT TB, HBSAG, HCV RX PCR #### [facility] , #### LIPID, HEPATIC, CBC, BMP #### [place] [address] USABasophils Auto (Bld) [#/Vol]on 50-25-1576Hpjjscnsp (Bld) [#/Vol]Automated basophil count<0.11[facility] Health SystemBasophils Auto (Bld) [#/Vol]Ordered By: Alethea Vickers on 50-05-2942Trzvxbzij (Bld) [#/Vol]Automated basophil count0.0-0.2FOhio State University Wexner Medical Center Basophils/100 WBC Auto (Bld)on 68-15-7604Wxuyzxulu/100 WBC (Bld)Automated basophil %[facility] Health SystemBasophils/100 WBC Auto (Bld)Ordered By: Alethea Vickesr on 54-62-8140Nydhbqpoz/100 WBC (Bld)Automated basophil %. [facility] Health SystemBilirubin.direct [Mass/volume] in Serum or PlasmaOrdered By: Alethea Vickers on 81-92-9324Qwakvqrvq.direct [Mass/Vol] Bilirubin.direct [Mass/volume] in Serum or Plasma0.03-0.18FOhio State University Wexner Medical CenterBilirubin.total [Mass/volume] in Serum or PlasmaOrdered By: Alethea Vickers on 40-32-2371Lxwteszap [Mass/Vol]Bilirubin.total [Mass/volume] in Serum or Plasma0.3-1.0[facility] Health SystemBlwheaton medical center Mycobacterium tuberculosis stimulated gamma interferon detectionOrdered By: Alethea Vickers on 08-29-2024M. tuberculosis tuberculin stim IFN-g Ql (Bld)Blood Mycobacterium tuberculosis tuberculin stimulated gamma interferon detection.[facility] Health SystemComment on above:QuantiFERON-TB Gold Plus is a qualitative indirect test forM tuberculosis infection (including disease) and isintended for use in conjunction with risk assessment,radiography, and other medical and di agnostic evaluations.The QuantiFERON-TB Gold Plus result is determined bysubtracting the Nil value from either TB antigen (Ag)value. The Mitogen tube serves as a control for the test.Blood manual differential comment interpretation narrativeon 02-46-4032Mhmxsd differential comment Martell (Bld) [Interp]Blood manual differential comment interpretation narrativeOhio State Health SystemBlood mitogen stimulated gamma interferon measurement (units/volume)Ordered By: Alethea Vickers on 63-14-7127Nvuaimu stimulated gamma interferon Qn (Bld)Blood mitogen stimulated gamma interferon measurement (units/volume).[facility] Health SystemCBC W Auto Differential panel (Bld)on 60-37-7097Vwjgaboxr (Bld) [#/Vol]0.10 10*3/uLNormal<0.11CWestern [facility] on above:Order Comment: Specimen Type: BLOOD SPECIMEN [facility]ing Facility: [facility] Address: [address] [place], [place] [address]Performed By: #### 43350-9 #### [facility] CLIA [id number] [address] [place], [place] [address]Vkgharqrh/100 WBC (Bld)1.4 %NormalDayton Osteopathic Hospital Comment on above:Order Comment: Specimen Type: BLOOD SPECIMEN Ordering Facility: [facility] Address: [address] [place], [place] [address]Performed By: #### 20731-5 #### [facility] CLIA [id number] [address] [place] [address] 68630Qsvmkleeeakm cell count method Nom (Bld)AutoNormalClevelPending sale to Novant Healthment on above:Order Comment: Specimen Type: BLOOD SPECIMEN Ordering Facility: [facility] Address: [address] [place], [place] [address]Performed By: #### 12306-6 #### [facility] CLIA [id number] [address] [place] [address] 79579Twgjddrqkqw (Bld) [#/Vol]0.39 10*3/uLNormal<0.46Dayton Osteopathic HospitalCommclaren northern [place] on above:Order Comment: Specimen Type: BLOOD SPECIMEN Ordering Facility: [facility] Address: [address] [place], [place] [address]Performed By: #### 12696-9 #### [facility] CLIA [id number] [address] [place], [place] [address]Xhxzeocvwgt/100 WBC (Bld)5.6 %NormalDayton Osteopathic Hospital Comment on above:Order Comment: Specimen Type: BLOOD SPECIMEN Ordering Facility: [facility] Address: [address] [place], [place] [address]Performed By: #### 10596-3 #### [facility] CLIA [id number] [address] [place], [place] [address]Zwjqkhqxxbb distribution width (RBC) [Ratio]13.5 %Normal 11.5-15.0[facility] on above:Order Comment: Specimen Type: BLOOD SPECIMEN Ordering Facility: [facility] Address: [address] [place], [place] [address]Performed By: #### 27300-0 #### [facility] CLIA [id number] [address] [place], [place] [address]Ligxwciejd (Bld) [Volume fraction]40.7 %Krxrck73.0-46.0 [facility] on above:Order Comment: Specimen Type: BLOOD SPECIMEN Ordering Facility: [facility] Address: [address] [place], [place] [address]Performed By: #### 10923-9 #### [facility] CLIA [id number] [address] [place] [address]Ccbmmifsgj (Bld) [Mass/Vol]13.3 g/jCBtukxi71.5-15.5CWestern [facility] Hospital on above:Order Comment: Specimen Type: BLOOD SPECIMEN Ordering Facility: [facility] Address: [address] [place], [place] [address]Performed By: #### 88129-1 #### [facility] CLIA [id number] [address] [place] [address]Cpyqhela granulocytes (Bld) [#/Vol]10*3/uLNormal<0.10[facility] on above:Order Comment: Specimen Type: BLOOD SPECIMEN Ordering Facility: [facility] Address: [address] [place], [place] [address]Performed By: #### 84216-9 #### [facility] CLIA [id number] [address] [place] [address]Sljnzbnp granulocytes/100 WBC (Bld)0.3 %NormalOhioHealth Southeastern Medical Center on above:Order Comment: Specimen Type: BLOOD SPECIMEN Ordering Facility: [facility] Address: [address] [place], [place] [address]Performed By: #### 13726-6 #### [facility] CLIA [id number] [address] [place] [address] 129[address]Kxzloatgiys (Bld) [#/Vol]2.05 10*3/uLNormal1.00-4.00[facility] on above:Order Comment: Specimen Type: BLOOD SPECIMEN Ordering Facility: [facility] Address: [address] [place], [place] [address]Performed By: #### 84879-3 #### [facility] CLIA [id number] [address] [place] [address]Mwkdrrsoifm/100 WBC (Bld)29.2 %NormalOhioHealth Southeastern Medical Center on above:Order Comment: Specimen Type: BLOOD SPECIMEN Ordering Facility: [facility] Address: [address] [place], [place] [address]Performed By: #### 93216-7 #### [facility] CLIA [id number] [address] [place] [address] 55089DTE (RBC) [Entitic mass]29.7 vzJodbkn28.0-34.0[facility] on above:Order Comment: Specimen Type: BLOOD SPECIMEN Ordering Facility: [facility] Address: [address] [place], [place] [address]Performed By: #### 92676-1 #### [facility] CLIA [id number] [address] [place] [address] 41262QRBO (RBC) [Mass/Vol]32.7 g/kCNctszv46.5-36.0[facility] on above:Order Comment: Specimen Type: BLOOD SPECIMEN Ordering Facility: [facility] Address: [address] [place], [place] [address]Performed By: #### 63115-7 #### [facility] CLIA [id number] [address] [place] [address] 34946RZS (RBC) [Entitic vol]90.8 yILvkcjb12.0-100.0[facility] on above:Order Comment: Specimen Type: BLOOD SPECIMEN Ordering Facility: [facility] Address: [address] [place], [place] [address]Performed By: #### 66111-3 #### [facility] CLIA [id number] [address] [place] [address] 74267Mgaruilqr (Bld) [#/Vol]0.56 10*3/uLNormal<0.87[facility] on above:Order Comment: Specimen Type: BLOOD SPECIMEN Ordering Facility: [facility] Address: [address] [place], [place] [address]Performed By: #### 04347-6 #### [facility] CLIA [id number] [address] [place] [address] 96970Tvlkxrfzc/100 WBC (Bld)8.0 %NormalDayton Osteopathic Hospital Comment on above:Order Comment: Specimen Type: BLOOD SPECIMEN Ordering Facility: [facility] Address: [address] [place], [place] [address]Performed By: #### 66425-3 #### [facility] CLIA [id number] [address] [place] [address] 78633Vtrrazphcxb (Bld) [#/Vol]3.89 10*3/uLNormal1.45-7.50[facility] on above:Order Comment: Specimen Type: BLOOD SPECIMEN Ordering Facility: [facility] Address: [address] [place], [place] [address]Performed By: #### 65118-2 #### [facility] CLIA [id number] [address] [place] [address] 59171Bcbfcnbrjbp/100 WBC (Bld)55.5 %NormalOhioHealth Southeastern Medical Center on above:Order Comment: Specimen Type: BLOOD SPECIMEN Ordering Facility: [facility] Address: [address] [place], [place] [address]Performed By: #### 02693-1 #### [facility] CLIA [id number] [address] [place], [place] [address]Xypktiwcl RBC (Bld) [#/Vol]10*3/uLNormal<0.01[facility] on above:Order Comment: Specimen Type: BLOOD SPECIMEN Ordering Facility: [facility] Address: [address] [place], [place] [address]Performed By: #### 66211-1 #### [facility] CLIA [id number] [address] [place], [place] [address]Neeuudpnl RBC/100 WBC (Bld) [Ratio]0.0 /100 WBCNormalCWestern Reserve Hospital on above:Order Comment: Specimen Type: BLOOD SPECIMEN Ordering Facility: [facility] Address: [address] [place], [place] [address]Performed By: #### 48188-1 #### [facility] CLIA [id number] [address] [place] [address] 79755Emvzfszj mean volume (Bld) [Entitic vol]8.6 fLLow9.0-12.7 [facility] on above:Order Comment: Specimen Type: BLOOD SPECIMEN Ordering Facility: [facility] Address: [address] [place], [place] [address]Performed By: #### 97940-7 #### [facility] CLIA [id number] [address] [place] [address] 63730Chwkqefhc (Bld) [#/Vol]502 10*3/yJRjma512-214AwtdzxnzhOhioHealth Southeastern Medical Center on above:Order Comment: Specimen Type: BLOOD SPECIMEN Ordering Facility: [facility] Address: [address] [place], [place] [address]Performed By: #### 69247-4 #### [facility] CLIA [id number] [address] [place] [address] 95646ZOW (Bld) [#/Vol]4.48 10*6/uLNormal3.90-5.20[facility] on above:Order Comment: Specimen Type: BLOOD SPECIMEN Ordering Facility: [facility] Address: [address] [place] [address] 37[address]Squhecwfz By: #### 06191-5 #### [facility] CLIA [id number] [address] [place], [place] [address]NUR (Bld) [#/Vol]7.01 10*3/uLNormal3.70-11.00[facility] on above:Order Comment: Specimen Type: BLOOD SPECIMEN Ordering Facility: [facility] Address: [address] [place] [address] 18855Ulzurwhpt By: #### 14763-6 #### [facility] CLIA [id number] [address] [place], [place] [address]Fyvrxmh [Mass/volume] in Serum or PlasmaOrdered By: Alethea Vickers on 45-16-8196Gejqyhr [Mass/Vol]Calcium [Mass/volume] in Serum or Plasma 8.6-10.3FOhio State University Wexner Medical CenterCarbon dioxide, total [Moles/volume] in Serum or PlasmaOrdered By: Alethea Vickers on 28-92-5429OP9 [Moles/Vol]Carbon dioxide, total [Moles/volume] in Serum or Egznng86.0-31.0[facility] Health SystemChloride [Moles/volume] in Serum or PlasmaOrdered By: Alethea Vickers on 86-23-5383Nyramsxt [Moles/Vol]Chloride [Moles/volume] in Serum or Glivlj77-504XnkzovdjyOhio State Health SystemCholesterol [Mass/volume] in Serum or PlasmaOrdered By: Alethea Vickers on 57-89-9270Smjlirojeee [Mass/Vol] Cholesterol [Mass/volume] in Serum or Xgngnw455-414KvzrmwnycOhio State Health SystemComment on above:Chol less than 200 mg/dl low riskChol 201-239 mg/dl borderline riskChol 240 mg/dl and greater high riskCholesterol in HDL [Mass/volume] in Serum or PlasmaOrdered By: Aleteha Vickers on 08-29-2024 Cholesterol in HDL [Mass/Vol]Serum or plasma high density lipoprotein (HDL) cholesterol snfxgiqkkpp86-38BvnrutasoOhio State Health SystemComment on above: HDL CHOL ATP-III CLASSIFICATION Cardiovascular RiskHDL > or equal to 60 mg/dL LOWHDL < 40 mg/dL HIGHCholesterol in LDL Calc [Mass/Vol]Ordered By: Alethea Vickers on 25-11-1378Iiueodqmpup in LDL [Mass/Vol]Cholesterol in LDL [Mass/volume] in Serum or Plasma by calculationHigh0-100[facility] Comment on above:LDL ATP III CLASSIFICATIONLDL less than 100 mg/dL OptimalLDL 100-129 mg/dL Near or above dhukyreJON285-570 mg/dL Borderline highLDL 160-189 mg/dL HighLDL greater than 189 mg/dL Very highCholesterol in VLDL Calc [Mass/Vol]Ordered By: Alethea Vickers on 30-13-1558Iznzbrylrct in VLDL [Mass/Vol] Cholesterol in VLDL [Mass/volume] in Serum or Plasma by calculationOhio State Health SystemComplete Blood Count Auto Diffon 57-15-2962Lcqqbmyic (Bld) [#/Vol]0.1 10*3/uLNormal0.0-0.2[facility]ician [facility] HospitalComment on above:Result Comment: PERFORMED BY: [place] [address] PATHOLOGIST [employer] REPAIR MANAGER GM ORR M.D.Performed By: #### QUANT TB, HBSAG, HCV RX PCR #### [facility] , #### LIPID, HEPATIC, CBC, BMP #### [facility] [address] [place] [address] USABasophils/100 WBC (Bld)1.6 %Normal.[facility] Physician [facility] HospitalComment on above:Performed By: #### QUANT TB, HBSAG, HCV RX PCR #### [facility] , #### LIPID, HEPATIC, CBC, BMP #### [facility] [address] [place] [address] USAEosinophils (Bld) [#/Vol]0.4 10*3/uLNormal0.0-0.45[facility] Physician GroupComment on above:Performed By: #### QUANT TB, HBSAG, HCV RX PCR #### [facility] , #### LIPID, HEPATIC, CBC, BMP #### [place] [address] USAEosinophils/100 WBC (Bld)5.9 %Normal.[facility] Physician GroupComment on above:Performed By: #### QUANT TB, HBSAG, HCV RX PCR #### [facility] , #### LIPID, HEPATIC, CBC, BMP #### [facility] [address] [place] [address] USAErythrocyte distribution width (RBC) [Ratio]13.4 %Normal 11.9-15.3[facility] Physician GroupComment on above:Performed By: #### QUANT TB, HBSAG, HCV RX PCR #### [facility] , #### LIPID, HEPATIC, CBC, BMP #### [place] [address] USAHematocrit (Bld) [Volume fraction]37.6 %Kuzuwo51.0-46.4[facility] Physician GroupComment on above:Performed By: #### QUANT TB, HBSAG, HCV RX PCR #### [facility] , #### LIPID, HEPATIC, CBC, BMP #### [place] [address] USAHemoglobin (Bld) [Mass/Vol]12.7 g/uKTxvgmg97.8-15.4[facility] Physician GroupComment on above:Performed By: #### QUANT TB, HBSAG, HCV RX PCR #### [facility] , #### LIPID, HEPATIC, CBC, BMP #### [place] [address] USALymphocytes (Bld) [#/Vol]2.4 10*3/uLNormal1.00-4.8[facility] Physician GroupComment on above:Performed By: #### QUANT TB, HBSAG, HCV RX PCR #### [facility] , #### LIPID, HEPATIC, CBC, BMP #### [place] [address] USALymphocytes/100 WBC (Bld)31.5 %Normal.[facility] Physician GroupComment on above:Performed By: #### QUANT TB, HBSAG, HCV RX PCR #### [facility] , #### LIPID, HEPATIC, CBC, BMP #### [address] (RBC) [Entitic mass]30.7 znYvxihw79.7-34.3[facility] Physician GroupComment on above:Performed By: #### QUANT TB, HBSAG, HCV RX PCR #### [facility] , #### LIPID, HEPATIC, CBC, BMP #### [address] (RBC) [Entitic vol]91.1 tMSndsxy50-399Var [facility] Physician GroupComment on above:Performed By: #### QUANT TB, HBSAG, HCV RX PCR #### [facility] , #### LIPID, HEPATIC, CBC, BMP #### [place] [address] USAMean Corpuscular HGB Conc33.7 g/oMQbwvop03.0-35.0[facility] Physician GroupComment on above:Performed By: #### QUANT TB, HBSAG, HCV RX PCR #### [facility] , #### LIPID, HEPATIC, CBC, BMP #### [place] [address] USAMonocytes (Bld) [#/Vol]0.6 10*3/uLNormal0.0-0.8[facility] Physician GroupComment on above:Performed By: #### QUANT TB, HBSAG, HCV RX PCR #### [facility] , #### LIPID, HEPATIC, CBC, BMP #### [place] [address] USAMonocytes/100 WBC (Bld)7.5 %Normal.[facility] Physician GroupComment on above:Performed By: #### QUANT TB, HBSAG, HCV RX PCR #### [facility] , #### LIPID, HEPATIC, CBC, BMP #### [place] [address] USANeutrophils (Bld) [#/Vol]4.1 10*3/uLNormal1.8-7.7[facility] Physician GroupComment on above:Performed By: #### QUANT TB, HBSAG, HCV RX PCR #### [facility] , #### LIPID, HEPATIC, CBC, BMP #### [place] [address] USANeutrophils/100 WBC (Bld)53.5 %Normal.[facility] Physician GroupComment on above:Performed By: #### QUANT TB, HBSAG, HCV RX PCR #### [facility] , #### LIPID, HEPATIC, CBC, BMP #### [facility] [address] [place] [address] USANRBC%0.1 /100{WBC}Normal0-0.5[facility] Physician [facility] Comment on above:Performed By: #### QUANT TB, HBSAG, HCV RX PCR #### [facility] , #### LIPID, HEPATIC, CBC, BMP #### [place] [address] USAPlatelet mean volume (Bld) [Entitic vol]7.5 fLNormal 6.3-10.7[facility] Physician GroupComment on above:Performed By: #### QUANT TB, HBSAG, HCV RX PCR #### [facility] , #### LIPID, HEPATIC, CBC, BMP #### [place] [address] USAPlatelets (Bld) [#/Vol]498 10*3/cHDkpj900-803Qbz [facility] Physician GroupComment on above:Performed By: #### QUANT TB, HBSAG, HCV RX PCR #### [facility] , #### LIPID, HEPATIC, CBC, BMP #### [facility] [address] [place] [address] USARBC (Bld) [#/Vol]4.13 10*6/uLNormal3.60-5.00[facility] Physician GroupComment on above:Performed By: #### QUANT TB, HBSAG, HCV RX PCR #### [facility] , #### LIPID, HEPATIC, CBC, BMP #### [facility] [address] [place] [address] USAWBC (Bld) [#/Vol]7.6 10*3/uLNormal3.8-11.6[facility] Physician GroupComment on above:Performed By: #### QUANT TB, HBSAG, HCV RX PCR #### [facility] , #### LIPID, HEPATIC, CBC, BMP #### [facility] [address] [place] [address] USAComprehensive metabolic 2000 panelon 99-20-0272Nltydks [Mass/Vol]4.3 g/dLNormal3.9-4.9CMedina HospitalCommclaren [place] on above:Order Comment: Specimen Type: BLOOD SPECIMEN Ordering Facility: [facility] Address: [address] [place], [place] [address]Performed By: #### 71516-4 #### [facility] CLIA [id number] [address] [place] [address] 68627ZKB [Catalytic activity/Vol]74 U/VVymmcn77-793ZjzdcffpgDayton Osteopathic HospitalCommclaren [place] on above:Order Comment: Specimen Type: BLOOD SPECIMEN Ordering Facility: [facility] Address: [address] [place], [place] [address]Performed By: #### 64152-0 #### [facility] CLIA [id number] [address] [place] [address] 19255MDL [Catalytic activity/Vol]12 U/LNormal7-38[facility] on above:Order Comment: Specimen Type: BLOOD SPECIMEN Ordering Facility: [facility] Address: [address] [place], [place] [address]Performed By: #### 82924-6 #### [facility] CLIA [id number] [address] [place], [place] [address]Lkkcw gap [Moles/Vol]10 mmol/LNormal8-15[facility] on above:Order Comment: Specimen Type: BLOOD SPECIMEN Ordering Facility: [facility] Address: [address] [place], [place] [address]Performed By: #### 85169-2 #### [facility] CLIA [id number] [address] [place] [address] 35913XZH [Catalytic activity/Vol]14 U/EUkiroy56-46QmophtltyOhioHealth Southeastern Medical Center on above:Order Comment: Specimen Type: BLOOD SPECIMEN Ordering Facility: [facility] Address: [address] [place], [place] [address]Performed By: #### 42621-3 #### [facility] CLIA [id number] [address] [place] [address] 858[address]Bplinoouk [Mass/Vol]0.4 mg/dLNormal0.2-1.3CWestern [facility] Hospital on above:Order Comment: Specimen Type: BLOOD SPECIMEN Ordering Facility: [facility] Address: [address] [place], [place] [address]Performed By: #### 42329-4 #### [facility] CLIA [id number] [address] [place], [place] [address]Krvjwmf [Mass/Vol]10.2 mg/dLNormal8.5-10.2CWestern Reserve Hospital on above:Order Comment: Specimen Type: BLOOD SPECIMEN Ordering Facility: [facility] Address: [address] [place], [place] [address]Performed By: #### 80824-7 #### [facility] CLIA [id number] [address] [place], [place] [address]Eawlwrvm [Moles/Vol]104 mmol/QSojqhd35-093BlvgzgdwsOhioHealth Southeastern Medical Center on above:Order Comment: Specimen Type: BLOOD SPECIMEN Ordering Facility: [facility] Address: [address] [place], [place] [address]Performed By: #### 15573-5 #### [facility] CLIA [id number] [address] [place], [place] [address]QQ8 [Moles/Vol]26 mmol/CWhaydd16-09HpfyjsgxjDayton Osteopathic Hospital Comment on above:Order Comment: Specimen Type: BLOOD SPECIMEN Ordering Facility: [facility] Address: [address] [place], [place] [address]Performed By: #### 54047-7 #### [facility] CLIA [id number] [address] [place] [address] 04185Qskrkuxpom [Mass/Vol]0.76 mg/dLNormal0.58-0.96[facility] on above:Order Comment: Specimen Type: BLOOD SPECIMEN Ordering Facility: [facility] Address: [address] [place], [place] [address]Performed By: #### 72781-4 #### [facility] CLIA [id number] [address] [place] [address] 31258Azuxgvlqyi and Glomerular filtration rate.predicted panel (S/P/Bld)87 mL/min/1.73m???Normal>=60[facility] on above: Order Comment: Specimen Type: BLOOD SPECIMEN Ordering Facility: [facility] Address: [address] [place], [place] [address]Result Comment: Estimated Glomerular Filtration Rate (eGFR) is calculated using the 2020 CKD-EPI cre atinine equation. This equation utilizes serum creatinine, sex, and age as parameters. The creatinine assay has traceable calibration to isotope dilution- mass spectrometry. Refer to KDIGO guidelines for clinical interpretation. In patients with unstable renal function, e.g. those with acute kidney injury, the eGFR may not accurately reflect actual GFR.Performed By: #### 60509-7 #### [facility] CLIA [id number] [address] [place], [place] [address]Xrpjqfz [Mass/Vol]111 mg/wQUloi82-35WnanqkpafDayton Osteopathic Hospital Comment on above:Order Comment: Specimen Type: BLOOD SPECIMEN Ordering Facility: [facility] Address: [address] [place], [place] [address]Result Comment: The [place] Diabetes Association (ADA) provides guidance for cutoff values for fasting glucose and random glucose. The ADA defines fasting as no [...] Standards of Medical Care in Diabetes 2016, [place] [employer] Association. Diabetes Care. 2016.39(Suppl 1).Performed By: #### 48918-8 #### [facility] CLIA [id number] [address] [place] [address] 729[address]Kldgowsgp [Moles/Vol]4.7 mmol/LNormal3.7-5.1CMedina HospitalComment on above:Order Comment: Specimen Type: BLOOD SPECIMEN Ordering Facility: [facility] Address: [address] [place], [place] [address]Performed By: #### 46027-3 #### [facility] CLIA [id number] [address] [place] [address] 28453Tfethsj [Mass/Vol]6.7 g/dLNormal6.3-8.0[facility] Osteopathic HospitalComment on above:Order Comment: Specimen Type: BLOOD SPECIMEN Ordering Facility: [facility] Address: [address] [place], [place] [address]Performed By: #### 84111-1 #### [facility] CLIA [id number] [address] [place] [address] 23507Ycrczp [Moles/Vol]140 mmol/JClvfyn862-047CuwnoerfdOhioHealth Southeastern Medical Center on above:Order Comment: Specimen Type: BLOOD SPECIMEN Ordering Facility: [facility] Address: [address] [place], [place] [address]Performed By: #### 26761-3 #### [facility] CLIA [id number] [address] [place], [place] [address]Bsfi nitrogen [Mass/Vol]13 mg/dLNormal7-21[facility] on above:Order Comment: Specimen Type: BLOOD SPECIMEN Ordering Facility: [facility] Address: [address] [place], [place] [address]Performed By: #### 18046-9 #### [facility] CLIA [id number] [address] [place] [address] 964[address]Yobtqjlybb [Mass/volume] in Serum or PlasmaOrdered By: Alethea Vickers on 43-32-0855Irhoiqxuun [Mass/Vol]Creatinine [Mass/volume] in Serum or Plasma0.60-1.20[facility] Health SystemEosinophils Auto (Bld) [#/Vol]Ordered By: Alethea Vickers on 90-16-4263Fqlfnshekkk (Bld) [#/Vol] Automated eosinophil count0.0-0.45[facility] Eosinophils/100 WBC Auto (Bld)on 29-76-0295Ykryzhjbfhu/100 WBC (Bld)Automated eosinophil %[facility] Health SystemEosinophils/100 WBC Auto (Bld) Ordered By: Alethea Vickers on 49-26-3861Wrpegasykzh/100 WBC (Bld)Automated eosinophil %.[facility] Health SystemErythrocyte distribution width Auto (RBC) [Ratio]on 29-07-2410Zibqmeiwgpw distribution width (RBC) [Ratio] Erythrocyte distribution width [Ratio] by Automated count11.5-15.0[facility] Health SystemErythrocyte distribution width Auto (RBC) [Ratio]Ordered By: Alethea Vickers on 13-89-5558Jjsowezvsfr distribution width (RBC) [Ratio] Erythrocyte distribution width [Ratio] by Automated count11.9-15.3FOhio State University Wexner Medical CenterFerritin SerPl-mCncon 08-34-0968Pkfznfoy [Mass/Vol]45.8 ng/bKDdhbcw20.7-205.1C[facility] on above:Order Comment: Specimen Type: BLOOD SPECIMENOrdering Facility: [facility] Address:[address] [place], [place] [address]Performed By: #### 2276-4, 2284-8, 9, 72331-4 ####[facility] LABCLIA [id number] [address] STATES OF CLINTON MEMORIAL HOSPITALFolate SerPl-mCncon 02-11-4813Tnpxcd [Mass/Vol]ng/mLNormal>4.7CWestern Reserve Hospital on above:Order Comment: Specimen Type: BLOOD SPECIMENOrdering Facility: [facility] Address:[address] [place], [place] [address]Result Comment: A result of > 20 ng/mL is not necessarily indicative of a pathologic or treatable condition: it reflects a limitation of the test methodology. Assay reference range: 4.8 to 24.2 ng/mL. Suitable for detection of folate deficiency. Reference: Folate III (Folate III) [package insert V 1.0 Mexican]. [facility], [place], [place]: May 2015.Performed By: #### 2276-4, 2284-8, 9, 51910-2 ####[facility] LABIA [id number] [place] [address] [place] STATES OF AMERICAGlobulin Calc (S) [Mass/Vol]Ordered By: Alethea Vickers on 73-80-3476Lyfxwnyy (S) [Mass/Vol]Serum globulin measurement by calculation (mass/volume)[facility] Health SystemGlucose [Mass/volume] in Serum or PlasmaOrdered By: Alethea Vickers on 90-55-9953Zcquftu [Mass/Vol]Glucose [Mass/volume] in Serum or VomjyrVarp76-144 [facility] SystemComment on above:ADA recommended reference rangeRandom Glucose Reference Range is dependent on time and content of last meal. Glucose of more than 200 mg/dL in a nonstressed, ambulatory subject supports the diagnosisof Diabetes Mellitus.Hematocrit Auto (Bld) [Volume fraction]on 56-12-0163Gkwykujnga (Bld) [Volume fraction]Hematocrit [Volume Fraction] of Blood by Automated count36.0-46.0[facility] Hematocrit Auto (Bld) [Volume fraction]Ordered By: Alethea Vickers on 08-29-2024 Hematocrit (Bld) [Volume fraction]Hematocrit [Volume Fraction] of Blood by Automated count34.0-46.4FOhio State University Wexner Medical CenterHemoglobin [Mass/volume] in Bloodon 69-54-1950Lmpdilcyjq (Bld) [Mass/Vol]Hemoglobin [Mass/volume] in Blood11.5-15.5FOhio State University Wexner Medical CenterHemoglobin [Mass/volume] in BloodOrdered By: Alethea Vickers on 38-24-7730Ktzmtwyaye (Bld) [Mass/Vol]Hemoglobin [Mass/volume] in Blood11.8-15.4FOhio State University Wexner Medical CenterHep C Ab wRfx to Qnt PCRon 30-65-5114Bhvzculpw C Virus Antibody Non-ReactiveNormalNon ReactiveThe [facility] Physician GroupComment on above: Performed By: #### QUANT TB, HBSAG, HCV RX PCR #### [facility] , #### LIPID, HEPATIC, CBC, BMP #### [facility] [address] [place] [address] USAInterpretation Hepatitis CCommentNormal.[facility] Physician GroupComment on above:Result Comment: Not infected with HCV unless early or acute infection is suspected (which may be delayed in an immunocompromised individual), or other evidence exists to indicate HCV infection.Performed By: #### QUANT TB, HBSAG, HCV RX PCR #### [facility] , #### LIPID, HEPATIC, CBC, BMP #### [facility] [address] [place] [id number] USAHepatic Panelon 17-42-1172Ooeeuvl [Mass/Vol]4.0 g/dLNormal 3.5-5.7The [facility] Physician GroupComment on above:Performed By: #### QUANT TB, HBSAG, HCV RX PCR #### [facility] , #### LIPID, HEPATIC, CBC, BMP #### [facility] [address] [place] [address] USAAlbumin/Globulin [Mass ratio]1.7 {ratio}NormalThe [facility] Physician GroupComment on above:Performed By: #### QUANT TB, HBSAG, HCV RX PCR #### [facility] , #### LIPID, HEPATIC, CBC, BMP #### [facility] [address] [place] [address] USAALP [Catalytic activity/Vol]55 U/DWovvmz45-926Ccm [facility] Physician GroupComment on above:Performed By: #### QUANT TB, HBSAG, HCV RX PCR #### [facility] , #### LIPID, HEPATIC, CBC, BMP #### [facility] [address] [place] [address] USAALT [Catalytic activity/Vol]13 U/[id number] [facility] Physician GroupComment on above:Performed By: #### QUANT TB, HBSAG, HCV RX PCR #### [facility] , #### LIPID, HEPATIC, CBC, BMP #### [facility] [address] [place] [address] USAAST [Catalytic activity/Vol]15 [id number] [facility] Physician GroupComment on above:Performed By: #### QUANT TB, HBSAG, HCV RX PCR #### [facility] , #### LIPID, HEPATIC, CBC, BMP #### [facility] [address] [place] [address] USABilirubin [Mass/Vol]0.5 mg/dLNormal0.3-1.0[facility] Physician GroupComment on above:Performed By: #### QUANT TB, HBSAG, HCV RX PCR #### [facility] , #### LIPID, HEPATIC, CBC, BMP #### [facility] [address] [place] [address] USABilirubin,Indirect0.4 mg/dLNormalThe [facility] Physician GroupComment on above:Performed By: #### QUANT TB, HBSAG, HCV RX PCR #### [facility] , #### LIPID, HEPATIC, CBC, BMP #### [place] [address] USABilirubin.indirect [Mass/Vol]0.10 mg/dLNormal0.03-0.18The [facility] Physician GroupComment on above:Performed By: #### QUANT TB, HBSAG, HCV RX PCR #### [facility] , #### LIPID, HEPATIC, CBC, BMP #### [place] [address] USAGlobulin (S) [Mass/Vol]2.3 g/dLNoHarris Regional Hospital Physician Covington County HospitalComment on above:Performed By: #### QUANT TB, HBSAG, HCV RX PCR #### [facility] , #### LIPID, HEPATIC, CBC, BMP #### [place] [address] USAProtein [Mass/Vol]6.3 g/dLLow6.4-8.9[facility] Physician [facility]oving[facility] County HospitalComment on above:Performed By: #### QUANT TB, HBSAG, HCV RX PCR #### [facility] , #### LIPID, HEPATIC, CBC, BMP #### [place] [address] USAHepatitis B Surface Antigenon 94-82-2723SOwQz Screen NegativeNormalNegativeThe Encompass Health Rehabilitation Hospital Of AltoonaComment on above:Result Comment: Performed at: - [facility] [id number] [employer] Assistant: Sherif Mccord PhD, Phone: [phone] PERFORMED BY: [place] [address] PATHOLOGIST EXTRUSION DIE REPAIR MANAGER GM ORR M.D.Performed By: #### QUANT TB, HBSAG, HCV RX PCR #### [facility] , #### LIPID, HEPATIC, CBC, BMP #### [facility] [address] [place] [address] USAHepatitis C virus IgG Ab [Presence] in Serum or Plasma by ImmunoassayOrdered By: Alethea Vickers on 12-08-8563DAE IgG IA QlHepatitis C virus IgG Ab [Presence] in Serum or Plasma by ImmunoassayNon [facility] Parma Medical CenterIron and Iron binding capacity panelon 39-93-6471Xjjt [Mass/Vol]80 ug/nUAxfgfk55-203ZysliormoDayton Osteopathic HospitalCommclaren northern [place] on above:Order Comment: Specimen Type: BLOOD SPECIMENOrdering Facility: [facility] Address:[address] [place], [place] [address]Performed By: #### 2276- 4, 228-8, 2132-03, 54411-0 ####[facility] LABCLIA [id number] [place] [address] [place] OF AMERICAIron binding capacity [Mass/Vol]378 ug/tCIglqwb875-355QchxdtvboDayton Osteopathic Hospital Comment on above:Order Comment: Specimen Type: BLOOD SPECIMENOrdering Facility: [facility] Address:[address] [place] [address] Performed By: #### 2276-4, 8, 2132-03, 25152-0 ####[facility] LABCLIA [id number] [place] [id number] [place] OF AMERICAIron/TIBC [Molar ratio]21.2 %Mibzgc73.0-57.0[facility] on above:Order Comment: Specimen Type: BLOOD SPECIMENOrdering Facility: [facility] Address:[address] [place], [place] [address]Performed By: #### 2276-4, 2283-8, 2132-03, 93585-2 ####[facility] LABCLIA [id number] [address] [address] [place] OF AMERICAIron binding capacity [Mass/volume] in Serum or Plasmaon 75-54-7770Uklr binding capacity [Mass/Vol]Iron binding capacity [Mass/volume] in Serum or Wzajly366-223QgapemdynOhio State Health SystemIron saturation [Mass Fraction] in Serum or Plasmaon 88-26-8374Bipg saturation [Mass fraction]Iron saturation [Mass Fraction] in Serum or Xlllrt49.0-57.0[facility] Health SystemLaboratory - Chemistry and Chemistry - challengeon 13-82-1719Tgiydar [Mass/Vol]4.3 g/dL3.9-4.9[facility] SystemALP [Catalytic activity/Vol]74 U/Q87-925ZapnskrxdOhio State Health SystemALT [Catalytic activity/Vol]12 U/L7-38[facility] SystemAST [Catalytic activity/Vol]14 U/X18-88WupyxtfnwOhio State Health SystemBilirubin [Mass/Vol]0.4 mg/dL0.2-1.3FOhio State University Wexner Medical CenterCalcium [Mass/Vol]10.2 mg/dL 8.5-10.2FOhio State University Wexner Medical CenterChloride [Moles/Vol]104 mmol/L98-107 [facility] SystemCO2 [Moles/Vol]26 mmol/N10-28IqxaxkwvfOhio State Health SystemCobalamin (Vitamin B12) [Mass/Vol]597 pg/fS695-6513QidtxftpyOhio State Health SystemCreatinine [Mass/Vol]0.76 mg/dL0.58-0.96[facility] Health SystemFerritin [Mass/Vol]45.8 ng/mL14.7-205.1FOhio State University Wexner Medical CenterGlucose [Mass/Vol]111 mg/qVOama84-60MeaugdvkyOhio State Health SystemComment on above:The [place] Diabetes Association (ADA) provides guidance for cutoff values for fasting glucose andrandom glucose. The ADA defines fasting as no caloric intake for at least 8 hours. Fasting plasma glucose results between 100 to 125 mg/dL indicate increased risk for diabetes (prediabetes).Fasting plasma glucose results greater than or equal to 126 mg/dL meet the criteria for diagnosis of diabetes. In the absence of unequivocal hyperglycemia, results should be confirmed by repeat testing. In a patient with classic symptoms of hyperglycemia or hyperglycemic crisis, random plasma glucose resultsgreater than or equal to 200 mg/dL meet the criteria for diagnosis of diabetes.Reference: Standardsof Medical Care in Diabetes 2016, [place] Diabetes Association. Diabetes Care. 2016.39(Suppl 1).Iron [Mass/Vol]80 ug/jW93-250 [facility] SystemPotassium [Moles/Vol]4.7 mmol/L3.7-5.1FUK Healthcareodium [Moles/Vol]140 mmol/C609-601SyzcpaazkOhio State Health SystemUrea nitrogen [Mass/Vol]13 mg/dL7-21[facility] Health SystemLaboratory - Hematology and Cell countson 97-75-6899Wczsnouoawp (Bld) [#/Vol]0.39 10*3/uL<0.46[facility] Health SystemImmature granulocytes/100 WBC (Bld)0.3 %[facility] Health SystemLeukocytes [#/volume] corrected for nucleated erythrocytes in Blood by Automated counon 65-98-8980UYJ corrected for nucl RBC Auto (Bld) [#/Vol]Leukocytes [#/volume] corrected for nucleated erythrocytes in Blood by Automated coun3.70-11.00 [facility] SystemLeukocytes [#/volume] corrected for nucleated erythrocytes in Blood by Automated counOrdered By: Alethea Vickers on 08-29-2024 WBC corrected for nucl RBC Auto (Bld) [#/Vol]Leukocytes [#/volume] corrected for nucleated erythrocytes in Blood by Automated coun3.8-11.6FOhio State University Wexner Medical CenterLipid Panelon 22-84-3171Skbgnpvphaf [Mass/Vol]192 mg/dLNormal 140-200The [facility] Physician GroupComment on above:Result Comment: Chol less than 200 mg/dl low risk Chol 201-239 mg/dl borderline risk Chol 240 mg/dl and greater high riskPerformed By: #### QUANT TB, HBSAG, HCV RX PCR #### [facility] , #### LIPID, HEPATIC, CBC, BMP #### [place] [address] USACholesterol in HDL [Mass/Vol]67 mg/sVDdegct78-51Aye [facility] Physician GroupComment on above:Result Comment: HDL CHOL ATP-III CLASSIFICATION Cardiovascular Risk HDL > or equal to 60 mg/dL LOW HDL < 40 mg/dL HIGHPerformed By: #### QUANT TB, HBSAG, HCV RX PCR #### [facility] , #### LIPID, HEPATIC, CBC, BMP #### [place] [address] USACholesterol.total/Cholesterol in HDL [Mass ratio]2.9 {ratio}Normal<5.0The [facility] Physician GroupComment on above:Result Comment: PERFORMED BY: [place] [address] PATHOLOGIST EXTRUSION DIE REPAIR MANAGER GM ORR M.D.Performed By: #### QUANT TB, HBSAG, HCV RX PCR #### [facility] , #### LIPID, HEPATIC, CBC, BMP #### [place] [address] USALDL Cholesterol,Qfdwqyyjzs197 mg/dLHigh0-100The [facility] Physician GroupComment on above:Result Comment: LDL ATP III CLASSIFICATION LDL less than 100 mg/dL Optimal LDL 100-129 mg/dL Near or above optimal LDL 130-159 mg/dL Borderline high LDL 160-189 mg/dL High LDL greater than 189 mg/dL Very highPerformed By: #### QUANT TB, HBSAG, HCV RX PCR #### [facility] , #### LIPID, HEPATIC, CBC, BMP #### [place] [address] USATriglyceride w/Odyeik61 mg/dLNormal0-149The [facility] Physician GroupComment on above:Result Comment: TRIG ATP III CLASSIFICATION TRIG less than 150 mg/dL Normal TRIG 150-199 mg/dL Borderline high TRIG 200-500 mg/dL High TRIG greater than 500 mg/dL Very high Standard traceable to the Center for Disease Conrtrol and Prevention (CDC) test method.Performed By: #### QUANT TB, HBSAG, HCV RX PCR #### [facility] , #### LIPID, HEPATIC, CBC, BMP #### [place] [address] USAVLDL VEWHHYUWSIT03 mg/dLNormalThe [facility]lands Physician GroupComment on above:Performed By: #### QUANT TB, HBSAG, HCV RX PCR #### [facility] , #### LIPID, HEPATIC, CBC, BMP #### [facility] [address] [place] [address] USALymphocytes Auto (Bld) [#/Vol]on 21-49-4590Wdzfforkbun (Bld) [#/Vol]Lymphocytes [#/volume] in Blood by Automated count1.00-4.00 [facility] Health SystemLymphocytes Auto (Bld) [#/Vol]Ordered By: Alethea Vickers on 43-60-4095Xerdumyutzm (Bld) [#/Vol]Lymphocytes [#/volume] in Blood by Automated count1.00-4.8[facility] Health SystemLymphocytes/100 WBC Auto (Bld)on 07-56-4381Zirafulzjzj/100 WBC (Bld)Lymphocytes/100 leukocytes in Blood by Automated countOhio State Health SystemLymphocytes/100 WBC Auto (Bld)Ordered By: Alethea Vickers on 79-96-7583Wtbyhdyhhlh/100 WBC (Bld) Lymphocytes/100 leukocytes in Blood by Automated count.[facility] Auto (RBC) [Entitic mass]on 87-02-3671BAT (RBC) [Entitic mass] MCH [Entitic mass] by Automated count26.0-34.0[facility] MCH Auto (RBC) [Entitic mass]Ordered By: Alethea Vickers on 96-20-4926YLL (RBC) [Entitic mass]MCH [Entitic mass] by Automated count24.7-34.3FMercy Health Perrysburg Hospital Auto (RBC) [Mass/Vol]on 19-27-8523ZJWN (RBC) [Mass/Vol]MCHC [Mass/volume] by Automated count30.5-36.0[facility] Auto (RBC) [Mass/Vol]Ordered By: Alethea Vickers on 41-13-8031RVBR (RBC) [Mass/Vol]MCHC [Mass/volume] by Automated count32.0-35.0[facility] Health SystemMCV Auto (RBC) [Entitic vol]on 59-46-8781TLM (RBC) [Entitic vol] MCV [Entitic volume] by Automated count80.0-100.0[facility] HealthV Auto (RBC) [Entitic vol]Ordered By: Alethea Vickers on 88-25-6107JTV (RBC) [Entitic vol]MCV [Entitic volume] by Automated mxmby41-668BnsiadsxkOhio State Health SystemMonocytes Auto (Bld) [#/Vol]on 05-36-9954Zcjksdnfw (Bld) [#/Vol]Automated blood monocyte count<0.87[facility] Monocytes Auto (Bld) [#/Vol]Ordered By: Alethea Vickers on 19-21-0254Hzdqixpiq (Bld) [#/Vol]Automated blood monocyte count0.0-0.8[facility] SystemMonocytes/100 WBC Auto (Bld)on 40-12-6721Yktijdawg/100 WBC (Bld)Automated monocyte %[facility] SystemMonocytes/100 WBC Auto (Bld)Ordered By: Alethea Vickers on 25-34-0552Vpafyplgi/100 WBC (Bld)Automated monocyte %. [facility] SystemMycobacterium tuberculosis stimulated gamma interferon [Interpretation] in Blood QualOrdered By: Alethea Vickers on 08-29-2024M. tuberculosis stim IFN-g Ql (Bld) [Interp]Mycobacterium tuberculosis stimulated gamma interferon [Interpretation] in Blood QualNegativeOhio State Health SystemComment on above:No response to M tuberculosis antigens detected.Infection with M tuberculosis is unlikely, but highriskindividuals should be considered for additional testing(ATS/IDSA/CDC Clinical Practice Guidelines, 2017). Thereference range is an Antigen minus Nil result of <0.35IU/mL.The specimen received for QuantiFERON testing was incubatedby the ordering institution. Specific procedures outlinedin ourDirectory of Services and in the package insert forthe QuantiFERON Gold (In Tube) test must be follo wed toenable for proper stimulation of cells for the productionof interferon gamma. Chemiluminescence immunoassaymethodologyPerformed at: CB - [facility]Choeug[address] [place], [place] [id number] Director: Sherif Mccord PhD, Phone: [phone] Auto (Bld) [#/Vol]on 79-75-3316Hcwikfsmskj (Bld) [#/Vol]Neutrophils [#/volume] in Blood by Automated count1.45-7.50[facility] Health SystemNeutrophils Auto (Bld) [#/Vol]Ordered By: Alethea Vickers on 32-09-6461Mtwauzbozgc (Bld) [#/Vol]Neutrophils [#/volume] in Blood by Automated count1.8-7.7FOhio State University Wexner Medical CenterNeutrophils/100 WBC Auto (Bld)on 49-80-6527Ootdqjsxpxz/100 WBC (Bld)Automated neutrophil %[facility] Health SystemNeutrophils/100 WBC Auto (Bld)Ordered By: Alethea Vickers on 89-85-9766Nicqkspdxtd/100 WBC (Bld)Automated neutrophil %.[facility] SystemNo Panel Informationon 21-37-9753Hqwafmppt GFR (CKD-EPI)87 mL/min/1.73m???>=60[facility] Health SystemComment on above:Estimated Glomerular Filtration Rate (eGFR) is calculated using the 2020 CKD-EPI creatinine equation. This equation utilizes serum creatinine, sex, and age as parameters. The creatinine assay has traceable calibration to isotope dilution- mass spectrometry. Refer to KDIGO guidelines for clinical interpretation. In patients with unstable renal function, e.g. those with acute kidney injury, the eGFRmay not accurately reflect actual GFR.Folate>20.0 ng/mL>4.7FOhio State University Wexner Medical CenterComment on above:A result of > 20 ng/mL is not necessarily indicative of a pathologic or treatable condition: it reflects a limitation of the test methodology.Assay reference range: 4.8 to 24.2 ng/mL. Suitable fordetection of folate deficiency.Reference:Folate III (Folate III) [package insert V 1.0 Mexican]. [facility], [place], [place]: May 2015.Immature Granulocyte # (Auto)<0.03 k/uL<0.10[facility] SystemNo Panel InformationOrdered By: Alethea Vickers on 56-43-4656Fvltptgdf GFR (CKD-EPI)> 60.0 mL/MinOhio State Health SystemHepatitis C InterpretationComment.[facility] Health SystemComment on above:Not infected with HCV unless early or acute infection issuspected (which may be delayed in an immunocompromisedindividual), or other evidence exists to indicate HCVinfection.Pharmacy Creatinine Clearance (ChemN/AFOhio State University Wexner Medical CenterNucleated RBC Auto (Bld) [#/Vol]on 72-51-9487Bjwiascmk RBC (Bld) [#/Vol] Nucleated erythrocytes [#/volume] in Blood by Automated count<0.01[facility] Health SystemNucleated erythrocytes [Presence] in Blood by Automated counton 54-94-7972Dwtuoulbr RBC Auto Ql (Bld)Nucleated erythrocytes [Presence] in Blood by Automated countOhio State Health SystemNucleated erythrocytes [Presence] in Blood by Automated countOrdered By: Alethea Vickers on 34-54-9031Ywqhmvmmz RBC Auto Ql (Bld)Nucleated erythrocytes [Presence] in Blood by Automated count0-0.5FOhio State University Wexner Medical CenterPlatelet mean volume Auto (Bld) [Entitic vol]on 90-59-3949Emrfsrym mean volume (Bld) [Entitic vol] Platelet mean volume [Entitic volume] in Blood by Automated countLow9.0-12.7 [facility] SystemPlatelet mean volume Auto (Bld) [Entitic vol] Ordered By: Alethea Vickers on 81-72-7069Tmuwdamc mean volume (Bld) [Entitic vol] Platelet mean volume [Entitic volume] in Blood by Automated count6.3-10.7 [facility] SystemPlatelets Auto (Bld) [#/Vol]on 08-29-2024 Platelets (Bld) [#/Vol]Platelets [#/volume] in Blood by Automated countHigh 150-400Ohio State Health SystemPlatelets Auto (Bld) [#/Vol]Ordered By: Alethea Vickers on 09-64-4611Wwhzqncbv (Bld) [#/Vol]Platelets [#/volume] in Blood by Automated jlmlrGlao780-432NrofkuauzOhio State Health SystemPotassium [Moles/volume] in Serum or PlasmaOrdered By: Alethea Vickers on 08-29-2024 Potassium [Moles/Vol]Potassium [Moles/volume] in Serum or Plasma3.5-5.1FOhio State University Wexner Medical CenterProtein [Mass/volume] in Serum or Plasmaon 08-29-2024 Protein [Mass/Vol]Protein [Mass/volume] in Serum or Plasma6.3-8.0[facility] SystemProtein [Mass/volume] in Serum or PlasmaOrdered By: Alethea Vickers on 03-96-8803Cislmiu [Mass/Vol]Protein [Mass/volume] in Serum or PlasmaLow6.4-8.9[facility] Health SystemQuantiFERON TB Goldon 19-40-1858QODK CriteriaCommentNormal.[facility] Physician GroupComment on above:Result Comment: QuantiFERON-TB Gold Plus is a qualitative indirect test for M tuberculosis infection (including disease) and is intended for use in conjunction with risk assessment, radiography, and other medical and diagnostic evaluations. The QuantiFERON-TB Gold Plus result is determined by subtracting the Nil value from either TB antigen (Ag) value. The Mitogen tube serves as a control for the test.Performed By: #### QUANT TB, HBSAG, HCV RX PCR #### [facility] , #### LIPID, HEPATIC, CBC, BMP #### [facility] [address] [place] [address] USAQuant TB Ag Value0.02 [IU]/mLNormal.The [facility] Physician GroupComment on above:Performed By: #### QUANT TB, HBSAG, HCV RX PCR #### [facility] , #### LIPID, HEPATIC, CBC, BMP #### [facility] [address] [place] [address] USAQuant TB Gold PlusNegativeNormalNegativeThe [facility] Physician GroupComment on above:Result Comment: No response to M tuberculosis antigens detected. Infection with M tuberculosis is unlikely, but high risk individuals should be considered for additional testing (ATS/IDSA/CDC Clinical Practice Guidelines, 2017). The reference range is an Antigen minus Nil result of <0.35 IU/mL. The specimen received for QuantiFERON testing was incubated by the ordering institution. Specific procedures outlined in our Directory of Services and in the package insert for the QuantiFERON Gold (In Tube) test must be followed to enable for proper stimulation of cells for the production of interferon gamma. Chemiluminescence immunoassay methodology Performed at: [facility] [id number] [employer] Assistant: Sherif Mccord PhD, Phone: [phone] PERFORMED BY: [place] [address] PATHOLOGIST EXTRUSION DIE REPAIR MANAGER GM ORR M.D.Performed By: #### QUANT TB, HBSAG, HCV RX PCR #### [facility] , #### LIPID, HEPATIC, CBC, BMP #### [place] [address] USAQuant TB2 Ag Value0.04 [IU]/mLNormal.The [facility] Physician GroupComment on above:Performed By: #### QUANT TB, HBSAG, HCV RX PCR #### [facility] , #### LIPID, HEPATIC, CBC, BMP #### [facility] [address] [place] [address] USAQuantiferon Nil Value0.03 [IU]/mLNormal.The [facility] Physician GroupComment on above:Performed By: #### QUANT TB, HBSAG, HCV RX PCR #### [facility] , #### LIPID, HEPATIC, CBC, BMP #### [facility] [address] [place] [address] USAQuantiferon TB Mitogen>10.00Normal.The [facility] Physician GroupComment on above:Performed By: #### QUANT TB, HBSAG, HCV RX PCR #### [facility] , #### LIPID, HEPATIC, CBC, BMP #### [facility] [address] [place] [address] USARBC Auto (Bld) [#/Vol]on 30-66-8532MYR (Bld) [#/Vol] Erythrocytes [#/volume] in Blood by Automated count3.90-5.20Fire[facility] Regional Medical CenterRBC Auto (Bld) [#/Vol]Ordered By: Alethea Vickers on 51-00-7187LSE (Bld) [#/Vol]Erythrocytes [#/volume] in Blood by Automated count3.60-5.00 OhioHealtherum or plasma albumin/globulin mass ratio Ordered By: Alethea Vickers on 47-43-2870Jiygsud/Globulin [Mass ratio]Serum or plasma albumin/globulin mass ratioOhioHealtherum or plasma anion gap determinationon 64-16-6018Rmkuw gap [Moles/Vol]Serum or plasma anion gap determination8-15OhioHealtherum or plasma anion gap determinationOrdered By: Alethea Vickers on 78-03-5699Uvnjh gap [Moles/Vol]Serum or plasma anion gap determination6.0-15.0OhioHealtherum or plasma hepatitis B virus surface antigen detection by immunoassayOrdered By: Alethea Vickers on 70-00-1912DBR surface Ag IA QlHepatitis B virus surface Ag [Presence] in Serum or Plasma by ImmunoassayNegative [facility] Health SystemComment on above:Performed at: [facility] Director: Sherif Mccord PhD, Phone: [phone] or plasma non-glucuronidated bilirubin measurement (mass/volume)Ordered By: Alethea Vickers on 52-03-1647Ztbdzheck.indirect [Mass/Vol]Serum or plasma non-glucuronidated bilirubin measurement (mass/volume) OhioHealtherum or plasma total cholesterol/high density lipoprotein (HDL) cholesterol mass ratOrdered By: Alethea Vickers on 08-29-2024 Cholesterol.total/Cholesterol in HDL [Mass ratio]Serum or plasma total cholesterol/high density lipoprotein (HDL) cholesterol mass rat<5.0OhioHealthodium [Moles/volume] in Serum or PlasmaOrdered By: Alethea Vickers on 50-02-5122Hlyxrn [Moles/Vol]Sodium [Moles/volume] in Serum or ZrgfoxEie316-561EqqsabuptOhio State Health SystemTriglyceride [Mass/volume] in Serum or PlasmaOrdered By: Alethea Vickers on 68-47-6870Fgyzffgzsyll [Mass/Vol] Triglyceride [Mass/volume] in Serum or Plasma0-149[facility] State Health SystemComment on above:TRIG ATP III CLASSIFICATIONTRIG less than 150 mg/dL NormalTRIG 150-199 mg/dL Borderline highTRIG 200-500 mg/dL High TRIG greater than 500 mg/dL Very highStandard traceable to the Center for Disease Conrtrol and Prevention (CDC) test method.Urea nitrogen [Mass/volume] in Serum or Plasma Ordered By: Alethea Vickers on 02-36-8182Yzix nitrogen [Mass/Vol]Urea nitrogen [Mass/volume] in Serum or Plasma7-[facility] State Health SystemVit B12 SerPl-mCncon 11-71-7079Vttbhjaao (Vitamin B12) [Mass/Vol]597 pg/kTDbfaxp356-4077 [facility] HospitalComment on above:Order Comment: Specimen Type: BLOOD SPECIMENOrdering Facility: [facility] Address:[address] [place], [place] [address]Performed By: #### 2276-4, 2284-8, 2132-9, 43702-1 ####[facility] LABCLIA [id number] [place] [address] [place] AMERICAWBC Auto (Bld) [#/Vol]Ordered By: Alethea Vickers on 25-85-8352LGH (Bld) [#/Vol]Leukocytes [#/volume] in Blood by Automated count3.8-11.6FOhio State University Wexner Medical CenterWhole blood measurement of Mycobacterium tuberculosis stimulated gamma interferon relOrdered By: Alethea Vickers on 08-29-2024M. tuberculosis stim IFN-g by CD4+ CD8+ T-cells corrected for background Qn (Bld)Whole blood measurement of Mycobacterium tuberculosis stimulated gamma interferon rel.[facility] Joao 81-12-7814IJRDLwhgnsttm (GASTMN) LAURA STEPHENSON ([id number]) 1960 F Date Time Provider Department 06/20/24 ASHU MITTAL During your visit today, we recorded the following information about you: Shine Wilson Ma 2024 12:32 PM [facility] a [facility] for Entyvio single dose valve Linsey Ames Ebony, RN 06/23/2024 12:53 PM Signed Pt receiving meds through [facility]. Janell Gallo RN June 23, 2024 12:53 PM Michaela Camara 06/24/2024 1:12 PM Signed [facility] let [facility] know patient is getting medication through [facility] Thank you Michaela Allergies As of Date: 2024 Noted Allergy Reaction AZITHROMYCIN 11/23/2012 16 - Unknown METRONIDAZOLE 03/12/2003 9 - Itching Comments: Itching and redness NAPROXEN 03/12/2003 PENICILLINS 03/12/2003 SULFA (SULFONAMIDE ANTIBIOTICS) 03/12/2003 16 - Unknown VANCOMYCIN 07/05/2021 2 - Rash Date Reviewed: 12/27/2023 Reviewed by: Randee Baldwin, MINAL - Fully Assessed Reason for Visit: New Prescription [Other] Visit Diagnosis:Crohn's disease of small intestine with complication (HCC) [K50.019] Prescriptions as of 06/24/2024 - ciprofloxacin HCl (CIPRO) 500 mg tablet Take 1 tablet by mouth two times a day. Two weeks on; Two week off - diphenoxylate-atropine (LOMOTIL) 2.5-0.025 mg per tablet TAKE 1 TABLET BY MOUTH 3 OR 4 TIMES DAILY NEEDED - Cholecalciferol, Vitamin D3, (VITAMIN D) 25 mcg (1,000 unit) cap Take 1 capsule by mouth once daily. - atenolol (TENORMIN) 25 mg tablet Take 1 tablet by mouth once daily. - folic acid 1 mg tablet Take 1 tablet by mouth once daily. - spironolactone (ALDACTONE) 25 mg tablet Take 1 tablet by mouth every afternoon. - magnesium oxide (MAG-OX) 400 mg (241.3 mg magnesium) tablet Take 1 tablet by mouth every afternoon. - ferrous sulfate 325 mg (65 mg iron) tablet Take 325 mg by mouth five times a week. - mecobalamin, vitamin B12, 1,000 mcg chew Take by mouth once daily. - Syringe with Needle, Disp, 3 mL 25 gauge x 1 1 Syringe as directed. - metFORMIN ER (GLUCOPHAGE XR) 500 mg 24 hr tablet TAKE 1 TABLET BY MOUTH EVERY DAY IN THE EVENING WITH MEAL - insulin lispro (HUMALOG KWIKPEN INSULIN) 100 unit/mL Inject 0-10 units three times daily following the sliding scale: If Blood Glucose (mg/dL) is <110 Give 0 units 111-150 Give 0 units 151-200 Give 2 unit 201-250 Give 4 units 251-300 Give 6 units 301-350 Give 8 units 351-400 Give 10 units >400 give 10units and notify provider. - Insulin [place], Disposable, (BD ULTRA-FINE MIN PEN NEEDLE) 32 gauge x 5/32 1 Each three times daily. - blood sugar diagnostic (ONETOUCH VERIO TEST STRIPS) test strip Use as instructed three times daily - lancets (ONETOUCH DELICA PLUS LANCET) 33 gauge 1 Each three times daily. - vedolizumab (ENTYVIO) 300 mg injection Infuse 300 mg every 4 weeks. - Lactobacillus acidophilus (PROBIOTIC ORAL) Take by mouth. - levothyroxine (SYNTHROID) 150 mcg tablet Take 1 tablet by mouth once daily. - Omeprazole 40 mg capsule Take 40 mg by mouth once daily. - FLUoxetine (PROZAC) 20 mg capsule Take 20 mg by mouth once daily. Problem List As Of Date 2024 Noted Resolved SBO (small bowel obstruction) (HCC) [K56.609] 09/18/2020 Pain in left ankle and joints of left foot [M25*11/01/2020 Pain in right ankle and joints of right foot [M*10/26/2020 Pain in right foot [M79.671] 11/01/2020 Pain in left foot [M79.672] 04/05/2021 IPMN (intraductal papillary mucinous neoplasm) *12/08/2021 12/26/2021 BMI 38.0-38.9,adult [Z68.38] 12/08/2021 Hypertension [I10] 12/08/2021 Gastroesophageal reflux disease without esophag*12/08/2021 Pancreatic cyst [K86.2] 12/09/2021 Chronic pain of left knee [M25.562, G89.29] 12/09/2021 DVT prophylaxis [IJC8105] 12/20/2021 Post-operative pain [G89.18] 12/20/2021 Depression [F32.A] 12/20/2021 Hypothyroidism [E03.9] 12/20/2021 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, Z90.*02/16/2022 Obesity, Class I, BMI 30-34.9 [E66.811] 12/15/2022 Crohn's disease of small intestine with complic*03/27/2023 Small bowel obstruction (HCC) [K56.609] 10/25/2023 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/08/2023 Iron deficiency anemia secondary to inadequate *11/08/2023 Encounter Status:Closed by JANELL GALLO on 06/23/24NoSumma Health Barberton CampusJoao [id number] (GASTMN) LAURA STEPHENSON ([id number]) 1960 F Date Time Provider Department 06/19/24 ASHU MITTAL GASTMN During your visit today, we recorded the following information about you: Michaela Camara 06/19/2024 4:38 PM Signed Patient has questions regarding her Entyvio, She is confused how she is getting this medication. She used to have someone come to her home once a month and do the infusion but now she's not sure so should would like some clarification on what she should be doing Patient number [phone] Janell Gallo, RN 06/19/2024 4:49 PM Signed Attempted to reach pt. No answer. Left message to call back. Janell Gallo RN June 19, 2024 4:49 PM Janell Gallo RN 2024 3:42 PM Signed Attempted to reach pt again. No answer. Left message to call back. Janell Gallo RN 2024 3:42 PM Janell Gallo RN 06/23/2024 1:02 PM Signed Pt returned the call and reports due to an insurance change she is 1 week late for Entyvio infusion and she is not sure if we can do anything on our end to help expedite.Contacted [facility] and spoke with Jeannie, and was advised that authorization is in process and hopefully they will have an update by end of day. [facility] [place] nurse back with an update. Nurses direct number provided. Pt notified of information. Janell Gallo RN June 23, 2024 12:58 PM Janell Gallo RN 07/03/2024 11:33 AM Signed Received an update from [facility] that pt's Medicare is showing inactive and that pt needs to contact them to provide further information. Contacted pt and notified her that she needs to contact [facility], Pt reports that she will reach out. Janell Gallo RN July 03, 2024 11:32 AM Janell Gallo RN 07/14/2024 1:22 PM Signed Pt called in to update the office that she is still unable to get her Entyvio infusion due to an ongoing issue with her insurance. She reports her Medicare information has been compromised and she has to wait on her new card in order to proceed with getting the authorization for the infusions. Pt denies any symptoms at this time and will inform the office once this has been resolved. Janell Gallo RN July 14, 2024 1:11 PM Allergies As of Date: 06/19/2024 Noted Allergy Reaction AZITHROMYCIN 11/23/2012 16 - Unknown METRONIDAZOLE 03/12/2003 9 - Itching Comments: Itching and redness NAPROXEN 03/12/2003 PENICILLINS 03/12/2003 SULFA (SULFONAMIDE ANTIBIOTICS) 03/12/2003 16 - Unknown VANCOMYCIN 07/05/2021 2 - Rash Date Reviewed: 12/27/2023 Reviewed by: Denny, Randee, RN - Fully Assessed Reason for Visit: Patient Question [1477] Prescriptions as of 07/14/2024 - diphenoxylate-atropine (LOMOTIL) 2.5-0.025 mg per tablet TAKE 1 TABLET BY MOUTH 3 OR 4 TIMES DAILY NEEDED - Cholecalciferol, Vitamin D3, (VITAMIN D) 25 mcg (1,000 unit) cap Take 1 capsule by mouth once daily. - atenolol (TENORMIN) 25 mg tablet Take 1 tablet by mouth once daily. - folic acid 1 mg tablet Take 1 tablet by mouth once daily. - spironolactone (ALDACTONE) 25 mg tablet Take 1 tablet by mouth every afternoon. - magnesium oxide (MAG-OX) 400 mg (241.3 mg magnesium) tablet Take 1 tablet by mouth every afternoon. - ferrous sulfate 325 mg (65 mg iron) tablet Take 325 mg by mouth five times a week. - mecobalamin, vitamin B12, 1,000 mcg chew Take by mouth once daily. - Syringe with Needle, Disp, 3 mL 25 gauge x 1 1 Syringe as directed. - metFORMIN ER (GLUCOPHAGE XR) 500 mg 24 hr tablet TAKE 1 TABLET BY MOUTH EVERY DAY IN THE EVENING WITH MEAL - insulin lispro (HUMALOG KWIKPEN INSULIN) 100 unit/mL Inject 0-10 units three times daily following the sliding scale: If Blood Glucose (mg/dL) is <110 Give 0 units 111-150 Give 0 units 151-200 Give 2 unit 201-250 Give 4 units 251-300 Give 6 units 301-350 Give 8 units 351-400 Give 10 units >400 give 10units and notify provider. - Insulin [place], Disposable, (BD ULTRA-FINE MIN PEN NEEDLE) 32 gauge x 5/32 1 Each three times daily. - blood sugar diagnostic (BiBCOMTOUCH VERIO TEST STRIPS) test strip Use as instructed three times daily - lancets (BiBCOMTOUCH DELICA PLUS LANCET) 33 gauge 1 Each three times daily. - vedolizumab (ENTYVIO) 300 mg injection Infuse 300 mg every 4 weeks. - Lactobacillus acidophilus (PROBIOTIC ORAL) Take by mouth. - levothyroxine (SYNTHROID) 150 mcg tablet Take 1 tablet by mouth once daily. - Omeprazole 40 mg capsule Take 40 mg by mouth once daily. - FLUoxetine (PROZAC) 20 mg capsule Take 20 mg by mouth once daily. Problem List As Of Date 06/19/2024 Noted Resolved SBO (small bowel obstruction) (HCC) [K56.609] 09/18/2020 Pain in left ankle and joints of left foot [M25*11/01/2020 Pain in right ankle and joints of right foot [M*10/26/2020 Pain in right foot [M79.671] 11/01/2020 Pain in left foot [M79.672] 04/05/2021 IPMN (intraductal p (more content not included)...NormalDayton Osteopathic HospitalHbA1c HPLC (Bld) [Mass fraction]on 38-67-5243CgL1b (Bld) [Mass fraction]Hemoglobin A1c/Hemoglobin.total in Blood by HPLCOhio State Health SystemNo Panel Informationon 15-05-1460Yyhztxo Eudmgbx980BjkfgrjakOhio State Health SystemCNPNon 66-53-6182GGEUGqqdkynmf (GASTMN) LAURA STEPHENSON ([id number]) 1960 F Date Time Provider Department 05/26/24 ASHU MITTAL During your visit today, we recorded the following information about you: Michaela Camara 05/26/2024 9:42 AM Signed Patient calling to see if she can get refill on Cipro 500mg tablet sent to her [facility] pharmacy on file. Last refill 12/27/2023 Last labs 01/29/2024 Last visit 01/10/2024 Janell Gallo, RN 05/26/2024 2:14 PM Signed Last visit:01/10/2024 PLAN Continue Entyvio and alternating two weeks on/off of Cipro Can use metamucil and lomotil to help firm up stools on weeks off Cipro CBC, CMP, and CRP today Follow up with Gail Wakefield in 3 months Follow up with Dr. Mittal in 6 months Remember to schedule MRI of Pancreas in 6-12 months Next visit scheduled on 06/19/24. Forwarding request to Dr. Mittal. Janell Gallo RN May 26, 2024 2:08 PM Janell Gallo RN 05/27/2024 4:10 PM Signed Pt notified Cipro sent to pharmacy. Janell Gallo RN May 27, 2024 4:10 PM Allergies As of Date: 05/26/2024 Noted Allergy Reaction AZITHROMYCIN 11/23/2012 16 - Unknown METRONIDAZOLE 03/12/2003 9 - Itching Comments: Itching and redness NAPROXEN 03/12/2003 PENICILLINS 03/12/2003 SULFA (SULFONAMIDE ANTIBIOTICS) 03/12/2003 16 - Unknown VANCOMYCIN 07/05/2021 2 - Rash Date Reviewed: 12/27/2023 Reviewed by: Randee Baldwin RN - Fully Assessed Reason for Visit: Orders [681] Prescriptions as of 05/27/2024 - ciprofloxacin HCl (CIPRO) 500 mg tablet Take 1 tablet by mouth two times a day. Two weeks; Two week off - diphenoxylate-atropine (LOMOTIL) 2.5-0.025 mg per tablet TAKE 1 TABLET BY MOUTH 3 OR 4 TIMES DAILY NEEDED - Cholecalciferol, Vitamin D3, (VITAMIN D) 25 mcg (1,000 unit) cap Take 1 capsule by mouth once daily. - atenolol (TENORMIN) 25 mg tablet Take 1 tablet by mouth once daily. - folic acid 1 mg tablet Take 1 tablet by mouth once daily. - spironolactone (ALDACTONE) 25 mg tablet Take 1 tablet by mouth every afternoon. - magnesium oxide (MAG-OX) 400 mg (241.3 mg magnesium) tablet Take 1 tablet by mouth every afternoon. - ferrous sulfate 325 mg (65 mg iron) tablet Take 325 mg by mouth five times a week. - mecobalamin, vitamin B12, 1,000 mcg chew Take by mouth once daily. - Syringe with Needle, Disp, 3 mL 25 gauge x 1 1 Syringe as directed. - metFORMIN ER (GLUCOPHAGE XR) 500 mg 24 hr tablet TAKE 1 TABLET BY MOUTH EVERY DAY IN THE EVENING WITH MEAL - insulin lispro (HUMALOG KWIKPEN INSULIN) 100 unit/mL Inject 0-10 units three times daily following the sliding scale: If Blood Glucose (mg/dL) is <110 Give 0 units 111-150 Give 0 units 151-200 Give 2 unit 201-250 Give 4 units 251-300 Give 6 units 301-350 Give 8 units 351-400 Give 10 units >400 give 10units and notify provider. - Insulin [place], Disposable, (BD ULTRA-FINE MIN PEN NEEDLE) 32 gauge x 5/32 1 Each three times daily. - blood sugar diagnostic (TradeCardUCH VERIO TEST STRIPS) test strip Use as instructed three times daily - lancets (BiBCOMTOUCH DELICA PLUS LANCET) 33 gauge 1 Each three times daily. - vedolizumab (ENTYVIO) 300 mg injection Infuse 300 mg every 4 weeks. - Lactobacillus acidophilus (PROBIOTIC ORAL) Take by mouth. - levothyroxine (SYNTHROID) 150 mcg tablet Take 1 tablet by mouth once daily. - Omeprazole 40 mg capsule Take 40 mg by mouth once daily. - FLUoxetine (PROZAC) 20 mg capsule Take 20 mg by mouth once daily. Problem List As Of Date 05/26/2024 Noted Resolved SBO (small bowel obstruction) ([facility]) [K56.609] 09/18/2020 Pain in left ankle and joints of left foot [M25*11/01/2020 Pain in right ankle and joints of right foot [M*10/26/2020 Pain in right foot [M79.671] 11/01/2020 Pain in left foot [M79.672] 04/05/2021 IPMN (intraductal papillary mucinous neoplasm) *12/08/2021 12/26/2021 BMI 38.0-38.9,adult [Z68.38] 12/08/2021 Hypertension [I10] 12/08/2021 Gastroesophageal reflux disease without esophag*12/08/2021 Pancreatic cyst [K86.2] 12/09/2021 Chronic pain of left knee [M25.562, G89.29] 12/09/2021 DVT prophylaxis [DDT7249] 12/20/2021 Post-operative pain [G89.18] 12/20/2021 Depression [F32.A] 12/20/2021 Hypothyroidism [E03.9] 12/20/2021 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, Z90.*02/16/2022 Obesity, Class I, BMI 30-34.9 [E66.811] 12/15/2022 Crohn's disease of small intestine with complic*03/27/2023 Small bowel obstruction (HCC) [K56.609] 10/25/2023 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/08/2023 Iron deficiency anemia secondary to inadequate *11/08/2023 Encounter Status:Closed by MICHAELA CAMARA on 05/26/24[facility] Antinuclear Antibodieson 69-07-4094Vgxbzgccvaw Abs, IFANegative Normal.[facility] Physician GroupComment on above:Result Comment: Negative <1:80 Borderline 1:80 Positive >1:80 ICAP nomenclature: AC-0 For more information about Hep-2 cell patterns use ANApatterns.org, the official website for the International Consensus on Antinuclear Antibody (HEATHER) Patterns (ICAP). Performed at: - [facility] [id number] [employer] Assistant: Sherif Mccord PhD, Phone: [phone] PERFORMED BY: [place] [address] PATHOLOGIST EXTRUSION DIE REPAIR MANAGER CLAUDIA COLINDRES M.D.Performed By: #### QUANT TB, HBSAG, HCV RX PCR #### [facility] , #### LIPID, HEPATIC, CBC, BMP #### [facility] [address] [place] [address] USAAlanine aminotransferase [Enzymatic activity/volume] in Serum or PlasmaOrdered By: Alethea Vickers on 20-81-4442VLL [Catalytic activity/Vol]13 U/LNormal7-[address] [place], [place] [address]Comment on above: Performed By: #### QUANT TB, HBSAG, HCV RX PCR #### [facility] , #### LIPID, HEPATIC, CBC, BMP #### [facility] [address] [place] [address] USAAlbumin [Mass/volume] in Serum or Plasma by Bromocresol green (BCG) dye binding methoOrdered By: Alethea Vickers on 57-80-9226Eiwskfy BCG dye [Mass/Vol]4.3 g/dL3.5-5.7FOhio State University Wexner Medical CenterAlkaline phosphatase [Enzymatic activity/volume] in Serum or PlasmaOrdered By: Alethea Vickers on 09-52-3176MZO [Catalytic activity/Vol]69 U/AWnuqpf18-906FwwnpvapaOhio State Health SystemComment on above:Result Comment: PERFORMED BY: [place] [address] PATHOLOGIST EXTRUSION DIE REPAIR MANAGER CLAUDIA COLINDRES M.D.Performed By: #### QUANT TB, HBSAG, HCV RX PCR #### [facility] , #### LIPID, HEPATIC, CBC, BMP #### [facility] [address] [place] [address] USAAspartate aminotransferase [Enzymatic activity/volume] in Serum or PlasmaOrdered By: Alethea Vickers on 15-34-9304DAX [Catalytic activity/Vol]17 U/JZiwgba97-07WvqwitmsmOhio State Health SystemComment on above: Performed By: #### QUANT TB, HBSAG, HCV RX PCR #### [facility] , #### LIPID, HEPATIC, CBC, BMP #### [facility] [address] [place] [address] USAAutomated basophil %Ordered By: Alethea Vickers on 68-90-8877Cqbocrbpp/100 WBC (Bld)0.9 %Normal.[facility] Comment on above:Performed By: #### QUANT TB, HBSAG, HCV RX PCR #### [facility] , #### LIPID, HEPATIC, CBC, BMP #### [facility] [address] [place] [address] USAAutomated basophil countOrdered By: Alethea Vickers on 38-79-3600Pcpgprdgj (Bld) [#/Vol]0.1 10*3/uLNormal0.0-0.2FOhio State University Wexner Medical CenterComment on above:Result Comment: PERFORMED BY: [place] [address] PATHOLOGIST EXTRUSION DIE REPAIR MANAGER CLAUDIA COLINDRES M.D.Performed By: #### QUANT TB, HBSAG, HCV RX PCR #### [facility] , #### LIPID, HEPATIC, CBC, BMP #### [place] [address] USAAutomated blood monocyte countOrdered By: Alethea Vickers on 32-32-5140Hlrmvhuao (Bld) [#/Vol]0.7 10*3/uLNormal0.0-0.8Ohio State Health SystemComment on above:Performed By: #### QUANT TB, HBSAG, HCV RX PCR #### [facility] , #### LIPID, HEPATIC, CBC, BMP #### [place] [address] USAAutomated eosinophil %Ordered By: Alethea Vickers on 64-82-1734Sdyyhzxjqtx/100 WBC (Bld)3.0 %Normal.[facility] Comment on above:Performed By: #### QUANT TB, HBSAG, HCV RX PCR #### [facility] , #### LIPID, HEPATIC, CBC, BMP #### [place] [address] USAAutomated eosinophil countOrdered By: Alethea Vickers on 95-74-1254Oozcjpdnvwt (Bld) [#/Vol]0.3 10*3/uLNormal0.0-0.45Ohio State Health SystemComment on above:Performed By: #### QUANT TB, HBSAG, HCV RX PCR #### [facility] , #### LIPID, HEPATIC, CBC, BMP #### [facility] [address] [place] [address] USAAutomated monocyte %Ordered By: Alethea Vickers on 38-61-2357Ydmkuvsss/100 WBC (Bld)8.5 %Normal.[facility] Comment on above:Performed By: #### QUANT TB, HBSAG, HCV RX PCR #### [facility] , #### LIPID, HEPATIC, CBC, BMP #### [facility] [address] [place] [address] USAAutomated neutrophil %Ordered By: Alethea Vickers on 17-14-8682Vailwrtxtzz/100 WBC (Bld)65.2 %Normal.[facility] Health SystemComment on above:Performed By: #### QUANT TB, HBSAG, HCV RX PCR #### [facility] , #### LIPID, HEPATIC, CBC, BMP #### [place] [address] USABilirubin.total [Mass/volume] in Serum or PlasmaOrdered By: Alethea Vickers on 35-80-4337Hnepefijc [Mass/Vol]0.5 mg/dLNormal0.3-1.0 [facility] Health SystemComment on above:Performed By: #### QUANT TB, HBSAG, HCV RX PCR #### [facility] , #### LIPID, HEPATIC, CBC, BMP #### [place] [address] USACalcium [Mass/volume] in Serum or PlasmaOrdered By: Alethea Vickers on 92-83-3544Olvwyea [Mass/Vol]10.1 mg/dLNormal8.6-10.3FOhio State University Wexner Medical CenterComment on above:Performed By: #### QUANT TB, HBSAG, HCV RX PCR #### [facility] , #### LIPID, HEPATIC, CBC, BMP #### [place] [id number] USACarbon dioxide, total [Moles/volume] in Serum or Plasma Ordered By: Alethea Vickers on 98-57-4423HN4 [Moles/Vol]27.2 mmol/LNormal 21.0-31.0Ohio State Health SystemComment on above:Performed By: #### QUANT TB, HBSAG, HCV RX PCR #### [facility] , #### LIPID, HEPATIC, CBC, BMP #### [address] [place] [address] USAChloride [Moles/volume] in Serum or PlasmaOrdered By: Alethea Vickers on 08-99-9100Lkgiyclx [Moles/Vol]98 mmol/XMjmcvo06-606ChexhrmlxOhio State Health SystemComment on above:Performed By: #### QUANT TB, HBSAG, HCV RX PCR #### [facility] , #### LIPID, HEPATIC, CBC, BMP #### [place] [address] USAComplete Blood Count Auto Diffon 34-85-8286Pkuz Corpuscular HGB Conc34.0 g/kNQayfnj37.0-35.0[facility] Physician GroupComment on above:Performed By: #### QUANT TB, HBSAG, HCV RX PCR #### [facility] , #### LIPID, HEPATIC, CBC, BMP #### [place] [address] USANRBC%0.0 /100{WBC}Normal0-0.5[facility] Comment on above:Performed By: #### QUANT TB, HBSAG, HCV RX PCR #### [facility] , #### LIPID, HEPATIC, CBC, BMP #### [place] [address] USAComprehensive Metabolic Panelon 55-83-1998Mtytnop [Mass/Vol]4.3 g/dLNormal3.5-5.7[facility] Physician GroupComment on above: Performed By: #### QUANT TB, HBSAG, HCV RX PCR #### [facility] , #### LIPID, HEPATIC, CBC, BMP #### [place] [address] USAGFR/1.73 sq M.predicted MDRD (S/P/Bld) [Vol rate/Area] mL/min/{1.73_m2}NormalThe [facility] Center Physician GroupComment on above:Performed By: #### QUANT TB, HBSAG, HCV RX PCR #### [facility] , #### LIPID, HEPATIC, CBC, BMP #### [facility] [address] [place] [id number] USACreatinine [Mass/volume] in Serum or PlasmaOrdered By: Alethea Vickers on 85-78-2400Nqykngtcis [Mass/Vol]0.91 mg/dLNormal0.60-1.20 [facility] SystemComment on above:Performed By: #### QUANT TB, HBSAG, HCV RX PCR #### [facility] , #### LIPID, HEPATIC, CBC, BMP #### [facility] [address] [place] [id number] USAErythrocyte distribution width [Ratio] by Automated count Ordered By: Alethea Vickers on 50-83-2295Zkgxraimnry distribution width (RBC) [Ratio]13.6 %Mehhed60.9-15.3FOhio State University Wexner Medical CenterComment on above: Performed By: #### QUANT TB, HBSAG, HCV RX PCR #### [facility] , #### LIPID, HEPATIC, CBC, BMP #### [facility] [address] [place] [id number] USAErythrocytes [#/volume] in Blood by Automated countOrdered By: Alethea Vickers on 17-17-3258UYC (Bld) [#/Vol]4.23 10*6/uLNormal3.60-5.00 [facility] SystemComment on above:Performed By: #### QUANT TB, HBSAG, HCV RX PCR #### [facility] , #### LIPID, HEPATIC, CBC, BMP #### [facility] [address] [place] [id number] USAGlucose [Mass/volume] in Serum or PlasmaOrdered By: Alethea Vickers on 73-28-5593Reqvunq [Mass/Vol]118 mg/aYAdzg43-284RrgwdnetmOhio State Health SystemComment on above:ADA recommended reference rangeRandom Glucose Reference Range is dependent on time and content of last meal. Glucose of more than 200 mg/dL in a nonstressed, ambulatory subject supports the diagnosisof Diabetes Mellitus.Result Comment: Random Glucose Reference Range is dependent on time and content of last meal. Glucose of more than 200 mg/dL in a nonstressed, ambulatory subject supports the diagnosis of Diabetes Mellitus. ADA recommended reference rangePerformed By: #### QUANT TB, HBSAG, HCV RX PCR #### [facility] , #### LIPID, HEPATIC, CBC, BMP #### [facility] [address] [place] [id number] USAHematocrit [Volume Fraction] of Blood by Automated count Ordered By: Alethea Vickers on 56-41-6403Zfqfmfwjct (Bld) [Volume fraction]38.6 % Qxobag00.0-46.4FOhio State University Wexner Medical CenterComment on above:Performed By: #### QUANT TB, HBSAG, HCV RX PCR #### [facility] , #### LIPID, HEPATIC, CBC, BMP #### [facility] [address] [place] [id number] USAHemoglobin [Mass/volume] in BloodOrdered By: Alethea Vickers on 61-20-7523Mievwovpxt (Bld) [Mass/Vol]13.1 g/hBDkpmmv43.8-15.4FOhio State University Wexner Medical CenterComment on above:Performed By: #### QUANT TB, HBSAG, HCV RX PCR #### [facility] , #### LIPID, HEPATIC, CBC, BMP #### [facility] [address] [place] [id number] USALeukocytes [#/volume] corrected for nucleated erythrocytes in Blood by Automated counOrdered By: Alethea Vickers on 43-25-9497HTI corrected for nucl RBC Auto (Bld) [#/Vol]8.6 10*3/uL3.8-11.6FOhio State University Wexner Medical CenterLeukocytes [#/volume] in Blood by Automated countOrdered By: Alethea Vickers on 74-89-2461TDS (Bld) [#/Vol]8.6 10*3/uLNormal3.8-11.6FOhio State University Wexner Medical CenterComment on above:Performed By: #### QUANT TB, HBSAG, HCV RX PCR #### [facility] , #### LIPID, HEPATIC, CBC, BMP #### [facility] [address] [place] [address] USALymphocytes [#/volume] in Blood by Automated countOrdered By: Alethea Vickers on 85-96-3123Hissgvaycgr (Bld) [#/Vol]1.9 10*3/uLNormal 1.00-4.8[facility] State Health SystemComment on above:Performed By: #### QUANT TB, HBSAG, HCV RX PCR #### [facility] , #### LIPID, HEPATIC, CBC, BMP #### [place] [address] USALymphocytes/100 leukocytes in Blood by Automated count Ordered By: Alethea Vickers on 69-27-7686Yyikldyupra/100 WBC (Bld)22.4 %Normal. [facility] Health SystemComment on above:Performed By: #### QUANT TB, HBSAG, HCV RX PCR #### [facility] , #### LIPID, HEPATIC, CBC, BMP #### [address] [Entitic mass] by Automated countOrdered By: Alethea Vickers on 89-57-1408PNX (RBC) [Entitic mass]31.0 bhBrwjlq80.7-34.3FOhio State University Wexner Medical CenterComment on above:Performed By: #### QUANT TB, HBSAG, HCV RX PCR #### [facility] , #### LIPID, HEPATIC, CBC, BMP #### [facility] [address] [place] [address] Auto (RBC) [Mass/Vol]Ordered By: Alethea Vickers on 61-04-3681FVND (RBC) [Mass/Vol]34.0 g/dL32.0-35.0[facility] State Health SystemMCV [Entitic volume] by Automated countOrdered By: Alethea Vickers on 02-77-8573ULC (RBC) [Entitic vol]91.3 dFXbdqjh09-685IcsehcetdOhio State Health SystemComment on above:Performed By: #### QUANT TB, HBSAG, HCV RX PCR #### [facility] , #### LIPID, HEPATIC, CBC, BMP #### [facility] [address] [place] [address] USANeutrophils [#/volume] in Blood by Automated countOrdered By: Alethea Vickers on 87-96-0409Ayslrrortwm (Bld) [#/Vol]5.6 10*3/uLNormal 1.8-7.7FOhio State University Wexner Medical CenterComment on above:Performed By: #### QUANT TB, HBSAG, HCV RX PCR #### [facility] , #### LIPID, HEPATIC, CBC, BMP #### [place] [address] USANo Panel InformationOrdered By: Alethea Vickers on 79-93-1154Fhavdhxdc GFR (CKD-EPI)> 60.0 mL/MinOhio State Health System Pharmacy Creatinine Clearance (ChemN/[facility], IncNucleated erythrocytes [Presence] in Blood by Automated countOrdered By: Alethea Vickers on 65-24-2066Ytkansmgk RBC Auto Ql (Bld)0.0 /100{WBC}0-0.5FOhio State University Wexner Medical CenterPlatelet mean volume [Entitic volume] in Blood by Automated count Ordered By: Alethea Vickers on 66-67-3215Grczcxwo mean volume (Bld) [Entitic vol] 7.2 fLNormal6.3-10.7FOhio State University Wexner Medical CenterComment on above:Performed By: #### QUANT TB, HBSAG, HCV RX PCR #### [facility] , #### LIPID, HEPATIC, CBC, BMP #### [facility] [address] [place] [address] USAPlatelets [#/volume] in Blood by Automated countOrdered By: Alethea Vickers on 18-75-5676Vcmnhdmiz (Bld) [#/Vol]541 10*3/fPXovl259-782 [facility] Health SystemComment on above:Performed By: #### QUANT TB, HBSAG, HCV RX PCR #### [facility] , #### LIPID, HEPATIC, CBC, BMP #### [facility] [address] [place] [address] USAPotassium [Moles/volume] in Serum or PlasmaOrdered By: Alethea Vickers on 81-63-9978Pluitxeuv [Moles/Vol]4.4 mmol/LNormal3.5-5.1 [facility] Health SystemComment on above:Performed By: #### QUANT TB, HBSAG, HCV RX PCR #### [facility] , #### LIPID, HEPATIC, CBC, BMP #### [facility] [address] [place] [address] USAProtein [Mass/volume] in Serum or PlasmaOrdered By: Alethea Vickers on 40-22-0234Ewgydpw [Mass/Vol]7.0 g/dLNormal6.4-8.9[facility] Health SystemComment on above:Performed By: #### QUANT TB, HBSAG, HCV RX PCR #### [facility] , #### LIPID, HEPATIC, CBC, BMP #### [facility] [address] [place] [address] USASerum globulin measurement by calculation (mass/volume) Ordered By: Alethea Vickers on 71-62-7964Pvfbkqxr (S) [Mass/Vol]2.7 g/dLNormal [facility] SystemComment on above:Performed By: #### QUANT TB, HBSAG, HCV RX PCR #### [facility] , #### LIPID, HEPATIC, CBC, BMP #### [facility] [address] [place] [address] USASerum or plasma albumin/globulin mass ratioOrdered By: Alethea Vickers on 04-14-5352Mphfigu/Globulin [Mass ratio]1.6 {ratio}Normal [facility] SystemComment on above:Performed By: #### QUANT TB, HBSAG, HCV RX PCR #### [facility] , #### LIPID, HEPATIC, CBC, BMP #### [facility] [address] [id number] USASerum or plasma anion gap determinationOrdered By: Alethea Vickers on 07-97-9248Whgwz gap [Moles/Vol]12.2 mmol/LNormal6.0-15.0 [facility] SystemComment on above:Performed By: #### QUANT TB, HBSAG, HCV RX PCR #### [facility] , #### LIPID, HEPATIC, CBC, BMP #### [facility] [address] [id number] USASodium [Moles/volume] in Serum or PlasmaOrdered By: Alethea Vickers on 23-61-6186Eeqtcc [Moles/Vol]133 mmol/GPkq587-855KncwyfbtoOhio State Health SystemComment on above:Performed By: #### QUANT TB, HBSAG, HCV RX PCR #### [facility] , #### LIPID, HEPATIC, CBC, BMP #### [facility] [address] [id number] USAUrea nitrogen [Mass/volume] in Serum or PlasmaOrdered By: Alethea Vickers on 50-55-0481Ujrq nitrogen [Mass/Vol]14 mg/dLNormal7-25[facility] Health SystemComment on above:Performed By: #### QUANT TB, HBSAG, HCV RX PCR #### [facility] , #### LIPID, HEPATIC, CBC, BMP #### [facility] [address] [id number] USACholesterol [Mass/volume] in Serum or PlasmaOrdered By: Ludy Arnett on 18-34-3356Krbtkgyfklt [Mass/Vol]190 mg/xZTbzxbk901-164EexqhbsjvOhio State Health SystemComment on above:Chol less than 200 mg/dl low riskChol 201-239 mg/dl borderline riskChol 240 mg/dl and greater high riskOrder Comment: Comment fastingResult Comment: Chol less than 200 mg/dl low risk Chol 201-239 mg/dl borderline risk Chol 240 mg/dl and greater high riskPerformed By: #### QUANT TB, HBSAG, HCV RX PCR #### [facility] , #### LIPID, HEPATIC, CBC, BMP #### [facility] [address] [place] [address] USACholesterol in LDL Calc [Mass/Vol]Ordered By: Ludy Arnett on 12-97-7045Dsgeltkyxnu in LDL [Mass/Vol]110 mg/dLHigh0-100[facility] SystemComment on above:LDL ATP III CLASSIFICATIONLDL less than 100 mg/dL OptimalLDL 100-129 mg/dL Near or above eaxibedRIV630-872 mg/dL Borderline highLDL 160-189 mg/dL HighLDL greater than 189 mg/dL Very highCholesterol in VLDL Calc [Mass/Vol]Ordered By: Ludy Arnett on 38-25-3868Ykjgeaeecxc in VLDL [Mass/Vol]18 mg/dLOhio State Health SystemCreatinine [Mass/volume] in UrineOrdered By: Ludy Arnett on 46-07-2909Rqzjbkiqrp (U) [Mass/Vol]74.00 mg/dL [facility] SystemComment on above:No reference range established Lipid Panelon 85-86-4203JRQ Cholesterol,Agxlioaord842 mg/dLHigh0-100[facility] Physician GroupComment on above:Order Comment: Comment fastingResult Comment: LDL ATP III CLASSIFICATION LDL less than 100 mg/dL Optimal LDL 100-129 mg/dL Near or above optimal LDL 130-159 mg/dL Borderline high LDL 160-189 mg/dL High LDL greater than 189 mg/dL Very highPerformed By: #### QUANT TB, HBSAG, HCV RX PCR #### [facility] , #### LIPID, HEPATIC, CBC, BMP #### [facility] [address] [place] [address] USATriglyceride w/Hlbvbd47 mg/dLNormal0-149[facility] Physician GroupComment on above:Order Comment: Comment fastingResult Comment: TRIG ATP III CLASSIFICATION TRIG less than 150 mg/dL Normal TRIG 150-199 mg/dL Borderline high TRIG 200-500 mg/dL High TRIG greater than 500 mg/dL Very high Standard traceable to the Center for Disease Conrtrol and Prevention (CDC) test method.Performed By: #### QUANT TB, HBSAG, HCV RX PCR #### [facility] , #### LIPID, HEPATIC, CBC, BMP #### [place] [address] USAVLDL GQFUCVQJSUV33 mg/dLNoHarris Regional Hospital Physician GroupComment on above:Order Comment: Comment fastingPerformed By: #### QUANT TB, HBSAG, HCV RX PCR #### [facility] , #### LIPID, HEPATIC, CBC, BMP #### [place] [address] USAMicroAlb Creat Ratio,Uon 69-09-1261Bclrszvbtp, Urine (Random)74.00 mg/dLNoHarris Regional Hospital Physician [facility] HospitalComment on above:Result Comment: No reference range establishedPerformed By: #### QUANT TB, HBSAG, HCV RX PCR #### [facility] , #### LIPID, HEPATIC, CBC, BMP #### [place] [address] USAMicroalbumin/Creatinine RatioNot performedNormal0.0-30.0 [facility] Physician [facility] HospitalComment on above:Result Comment: PERFORMED BY: [place] [address] PATHOLOGIST [employer] CLAUDIA COLINDRES M.D.Performed By: #### QUANT TB, HBSAG, HCV RX PCR #### [facility] , #### LIPID, HEPATIC, CBC, BMP #### [place] [address] USAMicroalbumin [Mass/volume] in UrineOrdered By: Ludy Arnett on 46-26-5897Zttpsew DL <= 20 mg/L (U) [Mass/Vol]mg/dLNormal0.0-1.8 [facility] SystemComment on above:Performed By: #### QUANT TB, HBSAG, HCV RX PCR #### [facility] , #### LIPID, HEPATIC, CBC, BMP #### [facility] [address] [id number] USASerum or plasma high density lipoprotein (HDL) cholesterol measurementOrdered By: Ludy Arnett on 02-77-1111Dmgpsrgsvxb in HDL [Mass/Vol] 62 mg/yQSzmcln79-74SgfpzfirgOhio State Health SystemComment on above:HDL CHOL ATP-III CLASSIFICATION Cardiovascular RiskHDL > or equal to 60 mg/dL LOWHDL < 40 mg/dL HIGHOrder Comment: Comment fastingResult Comment: HDL CHOL ATP-III CLASSIFICATION Cardiovascular Risk HDL > or equal to 60 mg/dL LOW HDL < 40 mg/dL HIGHPerformed By: #### QUANT TB, HBSAG, HCV RX PCR #### [facility] , #### LIPID, HEPATIC, CBC, BMP #### [facility] [address] [place] [address] USASerum or plasma total cholesterol/high density lipoprotein (HDL) cholesterol mass ratOrdered By: Ludy Arnett on 01-29-2024 Cholesterol.total/Cholesterol in HDL [Mass ratio]3.1 {ratio}Normal<5.0[facility] Health SystemComment on above:Order Comment: Comment fastingResult Comment: PERFORMED BY: [place] [address] PATHOLOGIST [employer]GER CLAUDIA COLINDRES M.D.Performed By: #### QUANT TB, HBSAG, HCV RX PCR #### [facility] , #### LIPID, HEPATIC, CBC, BMP #### [facility] [address] [id number] USATriglyceride [Mass/volume] in Serum or PlasmaOrdered By: Ludy Arnett on 47-51-0770Xwxczervcjxh [Mass/Vol]91 mg/dL0-149[facility] SystemComment on above:TRIG ATP III CLASSIFICATIONTRIG less than 150 mg/dL NormalTRIG 150-199 mg/dL Borderline highTRIG 200-500 mg/dL High TRIG greater than 500 mg/dL Very highStandard traceable to the Center for Disease Co nrtrol and Prevention (CDC) test method.Urine microalbumin/creatinine mass ratio Ordered By: Ludy Arnett on 37-53-1810Birzpwd/Creatinine DL <= 20 mg/L (U) [Mass ratio]TNPOhio State Health SystemComment on above:Test not performed Basophils Auto (Bld) [#/Vol]on 79-48-3986Sqfcxejik (Bld) [#/Vol]0.07 10*3/uL <0.11[facility] Health SystemBasophils/100 WBC Auto (Bld)on 01-24-2024 Basophils/100 WBC (Bld)0.9 %[facility] Health SystemBlood manual differential comment interpretation narrativeon 09-41-2317Pvjrkj differential comment Martell (Bld) [Interp]AutoOhio State Health SystemEosinophils/100 WBC Auto (Bld)on 78-46-9609Itlizglnwsr/100 WBC (Bld)6.4 %[facility] Health SystemErythrocyte distribution width Auto (RBC) [Ratio]on 01-24-2024 Erythrocyte distribution width (RBC) [Ratio]13.7 %11.5-15.0[facility] Health SystemHematocrit Auto (Bld) [Volume fraction]on 73-84-1426Uhxevhfwjl (Bld) [Volume fraction]37.2 %36.0-46.0[facility] Hemoglobin [Mass/volume] in Bloodon 56-96-0526Wkrjcaykdn (Bld) [Mass/Vol]12.2 g/dL11.5-15.5FOhio State University Wexner Medical CenterIron binding capacity [Mass/volume] in Serum or Plasmaon 78-73-0874Aivn binding capacity [Mass/Vol]312 ug/pG850-947DfxvwmqgeOhio State Health SystemIron saturation [Mass Fraction] in Serum or Plasmaon 84-62-8400Yriw saturation [Mass fraction]30.8 %15.0-57.0 [facility] SystemLaboratory - Chemistry and Chemistry - challengeon 26-42-7080Pmnatcy [Mass/Vol]3.9 g/dL3.9-4.9[facility] SystemALP [Catalytic activity/Vol]68 U/Y48-179XfbnspzvkOhio State Health SystemALT [Catalytic activity/Vol]11 U/L7-38[facility] SystemAST [Catalytic activity/Vol]17 U/C03-77CkqrskwtuOhio State Health SystemBilirubin [Mass/Vol]0.4 mg/dL0.2-1.3FOhio State University Wexner Medical CenterCalcium [Mass/Vol] 10.0 mg/dL8.5-10.2FOhio State University Wexner Medical CenterChloride [Moles/Vol]99 mmol/L 98-107[facility] SystemCO2 [Moles/Vol]26 mmol/M51-42LkpxinqspOhio State Health SystemCobalamin (Vitamin B12) [Mass/Vol]581 pg/iL454-3742 [facility] SystemCreatinine [Mass/Vol]0.95 mg/dL0.58-0.96 [facility] SystemFerritin [Mass/Vol]75.1 ng/mL14.7-205.1 [facility] SystemGlucose [Mass/Vol]139 mg/jBWrmy13-84HdzfntypmOhio State Health SystemComment on above:The [place] Diabetes Association (ADA) provides guidance for cutoff values for fasting glucose andrandom glucose. The ADA defines fasting as no caloric intake for at least 8 hours. Fasting plasma gl ucose results between 100 to 125 mg/dL indicate increased risk for diabetes (prediabetes).Fasting plasma glucose results greater than or equal to 126 mg/dL meet the criteria for diagnosis of diabetes. In the absence of unequivocal hyperglycemia, results should be confirmed by repeat testing. In a patient with classic symptoms of hyperglycemia or hyperglycemic crisis, random plasma glucose resultsgreater than or equal to 200 mg/dL meet the criteria for diagnosis of diabetes.Reference: Standardsof Medical Care in Diabetes 2016, [place] Diabetes Association. Diabetes Care. 2016.39(Suppl 1).Iron [Mass/Vol]96 ug/bF01-305 [facility] SystemPotassium [Moles/Vol]4.2 mmol/L3.7-5.1FUK Healthcareodium [Moles/Vol]133 mmol/VLuh493-527FjzgmsycfOhio State Health SystemUrea nitrogen [Mass/Vol]15 mg/dL7-21[facility] SystemLaboratory - Hematology and Cell countson 35-95-4437Nhpfdlcfnaz (Bld) [#/Vol]0.47 10*3/uLHigh<0.46[facility] SystemImmature granulocytes/100 WBC (Bld)0.3 %[facility] SystemLeukocytes [#/volume] corrected for nucleated erythrocytes in Blood by Automated counon 79-50-1771ZNO corrected for nucl RBC Auto (Bld) [#/Vol]7.40 k/uL3.70-11.00 [facility] SystemLymphocytes Auto (Bld) [#/Vol]on 01-24-2024 Lymphocytes (Bld) [#/Vol]2.25 10*3/uL1.00-4.00[facility] Lymphocytes/100 WBC Auto (Bld)on 96-08-2250Mupffkhpdax/100 WBC (Bld)30.4 % [facility]H Auto (RBC) [Entitic mass]on 45-83-9868LWO (RBC) [Entitic mass]30.0 pg26.0-34.0[facility] Health SystemMCHC Auto (RBC) [Mass/Vol]on 38-47-7463ZBHT (RBC) [Mass/Vol]32.8 g/dL30.5-36.0[facility] SystemMCV Auto (RBC) [Entitic vol]on 40-64-3110GZG (RBC) [Entitic vol]91.6 fL80.0-100.0[facility] SystemMonocytes Auto (Bld) [#/Vol]on 65-38-7664Upukrughs (Bld) [#/Vol]0.80 10*3/uL<0.87[facility] SystemMonocytes/100 WBC Auto (Bld)on 74-23-4488Vsaxyyktf/100 WBC (Bld)10.8 %[facility] Health SystemNeutrophils Auto (Bld) [#/Vol]on 93-15-0792Mcagwtstnut (Bld) [#/Vol]3.79 10*3/uL1.45-7.50[facility] Health SystemNeutrophils/100 WBC Auto (Bld)on 69-85-9567Jceeyufwhrf/100 WBC (Bld)51.2 %[facility] SystemNo Panel Informationon 01-24-2024 Estimated GFR (CKD-EPI)67 mL/min/1.73m???>=60[facility] Comment on above:Estimated Glomerular Filtration Rate (eGFR) is calculated using the 2020 CKD-EPI creatinine equation. This equation utilizes serum creatinine, sex, and age as parameters. The creatinine assay has traceable calibration to isotope dilution-mass spectrometry. Refer to KDIGO guidelines for clinical inte rpretation. In patients with unstable renal function, e.g. those with acute kidney injury, the eGFRmay not accurately reflect actual GFR.Folate>20.0 ng/mL >4.7FOhio State University Wexner Medical CenterComment on above:A result of > 20 ng/mL is not necessarily indicative of a pathologic or treatable condition: it reflects a limitation of the test methodology.Assay reference range: 4.8 to 24.2 ng/mL. Suitable fordetection of folate deficiency.Reference:Folate III (Folate III) [package insert V 1.0 Mexican]. [facility], [place], [place]: May 2015.Immature Granulocyte # (Auto)<0.03 k/uL<0.10[facility] Health SystemNucleated RBC Auto (Bld) [#/Vol]on 60-55-2032Tswvtsajz RBC (Bld) [#/Vol] 10*3/uL<0.01[facility] Health SystemNucleated erythrocytes [Presence] in Blood by Automated counton 81-38-3552Vxmdsmryo RBC Auto Ql (Bld)0.0 /100{WBC} [facility] Health SystemPlatelet mean volume Auto (Bld) [Entitic vol]on 29-62-9095Mewnyrvc mean volume (Bld) [Entitic vol]8.7 fLLow9.0-12.7FOhio State University Wexner Medical CenterPlatelets Auto (Bld) [#/Vol]on 68-42-5556Rugmfhoec (Bld) [#/Vol]435 10*3/qOMgta807-858FcnhkbtdgOhio State Health SystemProtein [Mass/volume] in Serum or Plasmaon 77-27-3032Ulaczlg [Mass/Vol]6.8 g/dL6.3-8.0 [facility] SystemRBC Auto (Bld) [#/Vol]on 94-55-4030IBC (Bld) [#/Vol]4.06 10*6/uL3.90-5.20OhioHealtherum or plasma anion gap determinationon 80-59-2757Utmyb gap [Moles/Vol]8 mmol/L8-15[facility] SystemMM screening mammo BI w/CADon 14-89-6353MF screening mammo BI w/CADMEM[facility] [place] [address] Mammography Report Signed Patient: Laura Stephenson MR#: [id number] 3 : 1960 Acct:[id number] Age/Sex: 63 / F ADM Date: 01/05/24 Loc: [place] Room: Type: [facility] Attending Dr: Renaldo Barton DO Copies to: Renaldo Barton DO Ordering Provider: Renaldo Barton DO Date of Service: 01/05/24 MM/MM screening mammo BI w/CAD: Z12.31 - Encounter for screening mammogram for malignant ... CLINICAL DATA: Screening for malignancy. SCREENING MAMMOGRAM - FULL FIELD DIGITAL WITH TOMOSYNTHESIS AND CAD COMPARISON:Mammograms dating back to 2017 Tomosynthesis craniocaudal and mediolateral oblique views of both breasts were obtained using low- dose digital technique. This examination was reviewed with the aid of CAD. FINDINGS: The breast tissue is almost entirely fatty. There are no dominant masses, typically malignant calcifications or architectural distortion. There has been no significant interval change. MM/MM screening mammo BI w/CAD IMPRESSION: NO MAMMOGRAPHIC EVIDENCE OF MALIGNANCY. ROUTINE FOLLOW-UP IS RECOMMENDED IN ONE YEAR. RESULT CODE: 1 Negative DENSITY CODE: 1 (<25% glandular) FOLLOW UP: 1YR The false-negative rate of mammography is approximately 10-percent. Management of a palpable abnormality must be based on clinical grounds. Patient was entered into a reminder system with a target due date for the next mammogram. Impression dictated by: Jeffry Herrera Jr., D.OGreg01/07/2024 9:59 AM Dictation Location: [facility] Transcribed By: MERCEDES 01/07/2459 Dictated By: Jeffry Herrera Jr, DO 01/07/24 0958 Signed By: 01/07/24 0959[facility] Physician GroupGLUCOSE, BLOOD (POC)on 14-74-9562Plcfuvj [Mass/Vol]74 mg/dL74 - 99 mg/dLCincinnati VA Medical Center on above:Location:[address] [place] [address] The Accu-Chek Inform II glucose meter has not been approved for testing on patients receiving intensive medical intervention or therapy and results from this point of care glucose test should not be used for patient management decisions in these cases. Inaccurate results may also occur from other interfering factors, such as N-acetylcysteine (blood concentrations of greater than 5mg/dL), galactose, extremes of hematocrit (<10 or >65), or high doses of ascorbic acid (vitamin C) greater than 3mg/dL. Consider alternate testing mechanisms (e.g. core lab, blood gas instrument) in the above situations. [facility] CenterGlucose [Mass/Vol]83 mg/dL74 - 99 mg/dLUniversity Hospitals Lake West Medical CenterComment on above:Location:[address], [facility] The Accu-Chek Inform II glucose meter has not been approved for testing on patients receiving intensive medical intervention or therapy and results from this point of care glucose test should not be used for patient management decisions in these cases. Inaccurate results may also occur from other interfering factors, such as N-acetylcysteine (blood concentrations of greater than 5mg/dL), galactose, extremes of hematocrit (<10 or >65), or high doses of ascorbic acid (vitamin C) greater than 3mg/dL. Consider alternate testing mechanisms (e.g. core lab, blood gas instrument) in the above situations. [facility] CenterPOUCHOSCOPYon 73-63-7931W08 Gastrointestinal Endoscopy Patient Name: Laura Stephenson Procedure Date: 12/27/2023 12:57 PM Date of : 1960 Admit Type: Outpatient Age: 63 Room: [address] Gender: Female Note Status: Finalized Attending MD: Ashu Mittal MD, [id number] Procedure: Pouchoscopy Indications: History of colectomy, Inflammatory bowel disease Providers: Ashu Mittal MD Patient Profile: This is a 63 year old female. Referring Physician: Ashu Mittal MD (Referring MD) Medicines: Monitored Anesthesia Care Complications: No immediate complications. Requesting Provider: Procedure: Pre-Anesthesia Assessment: - Prior to the procedure, a History and Physical was performed, and patient medications and allergies were reviewed. The patient is competent. The risks and benefits of the procedure and the sedation options and risks were discussed with the patient. All questions were answered and informed consent was obtained. Patient identification and proposed procedure were verified by the physician in the pre-procedure area. Mental Status Examination: alert and oriented. Airway Examination: normal oropharyngeal airway and neck mobility. Respiratory Examination: clear to auscultation. CV Examination: normal. Prophylactic Antibiotics: The patient does not require prophylactic antibiotics. Prior Anticoagulants: The patient has taken no anticoagulant or antiplatelet agents. ASA Grade Assessment: II - A patient with mild systemic disease. After reviewing the risks and benefits, the patient was deemed in satisfactory condition to undergo the procedure. The anesthesia plan was to use monitored anesthesia care (MAC). Immediately prior to administration of medications, the patient was re-assessed for adequacy to receive sedatives. The heart rate, respiratory rate, oxygen saturations, blood pressure, adequacy of pulmonary ventilation, and response to care were monitored throughout the procedure. The physical status of the patient was re-assessed after the procedure. After obtaining informed consent, the endoscope was passed under direct vision. Throughout the procedure, the patient's blood pressure, pulse, and oxygen saturations were monitored continuously. The Endoscope was introduced through the ileoanal anastomosis via the anus and advanced to the beto-terminal ileum. The procedure was performed without difficulty. The patient tolerated the procedure well. The quality of the bowel preparation was adequate. [facility] Pouchoscopy Moderate Sedation: MAC anesthesia was administered by the anesthesia team. Findings: Patient is status-post total colectomy with an ileal pouch-anal anastomosis. The digital rectal exam findings include anal stricture, digitally dilated. There was a rectal cuff beginning at at 1 cm from the anal verge, characterized by healthy appearing mucosa. The cuff extended 2 cm in length. Biopsies were taken with a cold forceps for histology. Patchy inflammation characterized by altered vascularity and erythema was found in the j-pouch. The inflammation was mild in severity and graded as Pouchitis Disease Activity Index (Endoscopic) Score 2. Biopsies were taken with a cold forceps for histology. Roughly 30-40% of the pouch showed evidence of erythematous mucosal changes and roughly 10% of the pouch had evidence of erosion/ulceration, similar to prior Localized inflammation, severe and characterized by erythema, mucus and confluent ulcerations was found in the pouch inlet. Biopsies were taken with a cold forceps for histology. The inflammation was circumferential, involving the >75% of the pouch inlet, with associated ulceration of 50% of the pouch inlet, with associated narrowing but no clear stenosis, allowing for easy passage of the scope, the area above the pouch inlet (pre-pouch) was mildly dilated. Overall unchanged (more content not included)...PROVATIONUniversity [facility]als [facility] Radiology Study observation (narrative)[facility] Medical CenterThyrotropin [Units/volume] in Serum or PlasmaOrdered By: Renaldo Barton on 78-22-1708AHK Qn 0.03 m[IU]/LLow0.45-5.33[facility] Health SystemThyroxine (T4) free [Mass/volume] in Serum or PlasmaOrdered By: Renaldo Barton on 99-36-6454Zvii T4 [Mass/Vol]1.24 ng/dLHigh0.61-1.12[facility] SystemMR Biliary ducts and Pancreatic duct WO and W contrast Grace 00-44-2332OEDQZGLGBA: Postoperative changes of distal pancreatectomy without local recurrence. Unchanged cystic pancreatic lesions, largest measuring 1.2 cm and uncinate process, and likely side branch IPMNs. No suspicious imaging features. Hepatic steatosis. 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 Follow-up evaluation of side branch IPMN seen on follow-up MRI. TECHNIQUE: Magnet: 1.5T scanner. Multiplanar MRI of the abdomen with multiple sequences, performed before and after intravenous contrast. Additional MR cholangiopancreatography sequences were performed. Contrast: Intravenous: 18 ml of Dotarem COMPARISON: MRCP 12/12/2022 RESULT: Liver: Normal morphology. Diffuse hepatic steatosis. No mass. Biliary: No intrahepatic or extrahepatic bile duct dilation. No biliary filling defect. Gallbladder is absent. Pancreas: Postoperative changes of distal pancreatectomy. No new/recurrent lesion in the pancreatectomy bed. Multiple small cystic pancreatic lesions are not significantly changed from prior exam, the largest measuring 1.2 x 1.0 cm and uncinate process (2:37), previously 1.1 x 1.3 cm. No main pancreatic duct dilation. No enhancing nodule or other worrisome features. Previously seen fluid collection at the surgical cut surface has resolved in the interim. Spleen: Splenectomy. Adrenals: No mass. Kidneys: No solid mass. Benign cysts (Bosniak 1 or 2). No hydronephrosis. GI: Small hiatal hernia. No wall thickening along imaged segments. Mildly dilated small bowel loops along the anterior abdomen, similar to prior, and likely physiologic status post pouch creation. Lymph nodes: No abdominal lymphadenopathy. Mesentery/Peritoneum/Retroperitoneum: No ascites or mass. Rectus diastases with anterior protrusion of bowel. Rounded area of focal fat necrosis within the anterior mesentery measuring 5.3 x 3.3 cm (7:39), previously 5.8 cm. Vasculature: - Abdominal aorta: No aneurysm. - Celiac and SMA: Patent without stenosis. - Portal venous system (SMV, splenic vein, portal vein and branches): Patent. - Hepatic veins: Patent. Bones/Soft Tissues: Degenerative changes. Lower chest: Unremarkable. [employer] (localizer) images: No additional findings. 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 Follow-up evaluation of side branch IPMN seen on follow-up MRI. TECHNIQUE: Magnet: 1.5T scanner. Multiplanar MRI of the abdomen with multiple sequences, performed before and after intravenous contrast. Additional MR cholangiopancreatography sequences were performed. Contrast: Intravenous: 18 ml of Dotarem COMPARISON: MRCP 12/12/2022 RESULT: Liver: Normal morphology. Diffuse hepatic steatosis. No mass. Biliary: No intrahepatic or extrahepatic bile duct dilation. No biliary filling defect. Gallbladder is absent. Pancreas: Postoperative changes of distal pancreatectomy. No new/recurrent lesion in the pancreatectomy bed. Multiple small cystic pancreatic lesions are not significantly changed from prior exam, the largest measuring 1.2 x 1.0 cm and uncinate process (2:37), previously 1.1 x 1.3 cm. No main pancreatic duct dilation. No enhancing nodule or other worrisome features. Previously seen fluid collection at the surgical cut surface has resolved in the interim. Spleen: Splenectomy. Adrenals: No mass. Kidneys: No solid mass. Benign cysts (Bosniak 1 or 2). No hydronephrosis. GI: Small hiatal hernia. No wall thickening along imaged segments. Mildly dilated small bowel loops along the anterior abdomen, similar to prior, and likely physiologic status post pouch creation. Lymph nodes: No abdominal lymphadenopathy. Mesentery/Peritoneum/Retroperitoneum: No ascites or mass. Rectus diastases with anterior protrusion of bowel. Rounded area of focal fat necrosis within the anterior mesentery measuring 5.3 x 3.3 cm (7:39), previously 5.8 cm. Vasculature: - Abdominal aorta: No aneurysm. - Celiac and SMA: Patent without stenosis. - Portal venous system (SMV, splenic vein, portal vein and branches): Patent. - Hepatic veins: Patent. Bones/Soft Tissues: Degenerative changes. Lower chest: Unremarkable. [employer] (localizer) images: No additional findings. IMPRESSION IMPRESSION: Postoperative changes of distal pancreatectomy without local recurrence. Unchanged cystic pancreatic lesions, largest measuring 1.2 cm and uncinate process, and likely side branch IPMNs. No suspicious imaging features. Hepatic steatosis. Overlock Hemmer: PSCB Transcribe Date/Time: Dec 05 2023 11:08A Dictated by : VASILIY MCDONNELL MD This examination was interpreted and the report reviewed and electronically signed by: SHER LEONG MD on Dec 05 2023 1:34PM [facility] ([facility]ative[facility] Biliary ducts and Pancreatic duct WO and W contrast IVOrdered By: [facility] Provider on 89-14-8153Knbgypsdu KlrxzpBmG9i HPLC (Bld) [Mass fraction]on 60-26-8565YrG6f (Bld) [Mass fraction]5.6 %[facility] SystemNo Panel Information on 42-83-8695Wbfqpyn Rmtjpjz818LpewoszmwOhio State Health SystemBasophils Auto (Bld) [#/Vol]on 42-69-6754Ldobrpxxm (Bld) [#/Vol]0.08 10*3/uL<0.11[facility] SystemBasophils/100 WBC Auto (Bld)on 65-63-4434Ngbbwwobu/100 WBC (Bld)0.9 %[facility] SystemBlood manual differential comment interpretation narrativeon 02-54-4455Mfsggl differential comment Martell (Bld) [Interp]AutoOhio State Health SystemEosinophils/100 WBC Auto (Bld)on 89-35-6902Ynwqzrtkzqk/100 WBC (Bld)5.7 %[facility] Erythrocyte distribution width Auto (RBC) [Ratio]on 24-94-1145Uvgexqcyczs distribution width (RBC) [Ratio]15.3 %High11.5-15.0[facility] SystemHematocrit Auto (Bld) [Volume fraction]on 65-28-3608Zybvvzmfjs (Bld) [Volume fraction]39.3 %36.0-46.0[facility] SystemHemoglobin [Mass/volume] in Bloodon 82-29-8651Znuyumghza (Bld) [Mass/Vol]12.8 g/dL11.5-15.5 [facility] SystemIron binding capacity [Mass/volume] in Serum or Plasmaon 87-45-3204Damm binding capacity [Mass/Vol]307 ug/tP621-192QnxikreilOhio State Health SystemIron saturation [Mass Fraction] in Serum or Plasmaon 85-10-4681Mimr saturation [Mass fraction]15.3 %15.0-57.0[facility] SystemLaboratory - Chemistry and Chemistry - challengeon 11-01-2023 Albumin [Mass/Vol]3.7 g/dLLow3.9-4.9[facility] SystemALP [Catalytic activity/Vol]63 U/K05-221EmvgwieroOhio State Health SystemALT [Catalytic activity/Vol]13 U/L7-38[facility] SystemAST [Catalytic activity/Vol]16 U/V62-09VqijwybesOhio State Health SystemBilirubin [Mass/Vol]0.3 mg/dL0.2-1.3FOhio State University Wexner Medical CenterCalcium [Mass/Vol]9.7 mg/dL8.5-10.2FOhio State University Wexner Medical CenterChloride [Moles/Vol]102 mmol/L 97-105[facility] SystemCO2 [Moles/Vol]24 mmol/A87-86SwqbjcdgnOhio State Health SystemCobalamin (Vitamin B12) [Mass/Vol]1267 pg/qXMzpm201-0191 [facility] SystemCreatinine [Mass/Vol]0.97 mg/dLHigh0.58-0.96 [facility] SystemFerritin [Mass/Vol]67.8 ng/mL14.7-205.1 [facility] SystemGlucose [Mass/Vol]123 mg/zGQfqm32-77QsdoybovcOhio State Health SystemComment on above:The [place] Diabetes Association (ADA) provides guidance for cutoff values for fasting glucose andrandom glucose. The ADA defines fasting as no caloric intake for at least 8 hours. Fasting plasma gl ucose results between 100 to 125 mg/dL indicate increased risk for diabetes (prediabetes).Fasting plasma glucose results greater than or equal to 126 mg/dL meet the criteria for diagnosis of diabetes. In the absence of unequivocal hyperglycemia, results should be confirmed by repeat testing. In a patient with classic symptoms of hyperglycemia or hyperglycemic crisis, random plasma glucose resultsgreater than or equal to 200 mg/dL meet the criteria for diagnosis of diabetes.Reference: [employer] in Diabetes 2016, [place] Diabetes Association. Diabetes Care. 2016.39(Suppl 1).Iron [Mass/Vol]47 ug/oU90-700 [facility] SystemPotassium [Moles/Vol]4.1 mmol/L3.7-5.1FUK Healthcareodium [Moles/Vol]138 mmol/E539-525IrmcirobmOhio State Health SystemUrea nitrogen [Mass/Vol]12 mg/dL7-21[facility] SystemLaboratory - Hematology and Cell countson 10-44-8868Nvdghufzutq (Bld) [#/Vol]0.52 10*3/uLHigh<0.46[facility] SystemImmature granulocytes (Bld) [#/Vol]0.03 10*3/uL<0.10[facility] Immature granulocytes/100 WBC (Bld)0.3 %[facility] Leukocytes [#/volume] corrected for nucleated erythrocytes in Blood by Automated counon 13-43-1027ICL corrected for nucl RBC Auto (Bld) [#/Vol]9.12 k/uL 3.70-11.00[facility] SystemLymphocytes Auto (Bld) [#/Vol]on 17-96-6361Qokbojkyofh (Bld) [#/Vol]2.67 10*3/uL1.00-4.00[facility] SystemLymphocytes/100 WBC Auto (Bld)on 47-31-8225Eqyqwuftphv/100 WBC (Bld)29.3 %[facility] SystemMCH Auto (RBC) [Entitic mass]on 98-27-9174TDD (RBC) [Entitic mass]29.8 pg26.0-34.0[facility] SystemMCHC Auto (RBC) [Mass/Vol]on 64-45-9866RKNI (RBC) [Mass/Vol]32.6 g/dL 30.5-36.0[facility] SystemMCV Auto (RBC) [Entitic vol]on 84-45-9078SGF (RBC) [Entitic vol]91.4 fL80.0-100.0[facility] SystemMonocytes Auto (Bld) [#/Vol]on 69-58-9724Vobfvehjq (Bld) [#/Vol]0.88 10*3/uLHigh<0.87[facility] SystemMonocytes/100 WBC Auto (Bld)on 30-81-5082Dzzshnrvl/100 WBC (Bld)9.6 %[facility] Neutrophils Auto (Bld) [#/Vol]on 45-87-7739Lvfpgqehkkx (Bld) [#/Vol]4.94 10*3/uL 1.45-7.50[facility] SystemNeutrophils/100 WBC Auto (Bld)on 58-65-5839Rlhxnyvrdoy/100 WBC (Bld)54.2 %[facility] SystemNo Panel Informationon 66-31-8627Cmdjqgevg GFR (CKD-EPI)65 mL/min/1.73m???>=60 [facility] SystemComment on above:Estimated Glomerular Filtration Rate (eGFR) is calculated using the 2020 CKD-EPI creatinine equation. This equation utilizes serum creatinine, sex, and age as parameters. The creatinine assay has traceable calibration to isotope dilution-mass spectrometry. Refer to KDIGO guidelines for clinical interpretation. In patients with unstable renal function, e.g. those with acute kidney injury, the eGFRmay not accurately reflect actual GFR.Folate>20.0 ng/mL>4.7FOhio State University Wexner Medical CenterComment on above:A result of > 20 ng/mL is not necessarily indicative of a pathologic or treatable condition: it reflects a limitation of the test methodology.Assay reference range: 4.8 to 24.2 ng/mL. Suitable for detection of folate deficiency.Reference:Folate III (Folate III) [package insert V 1.0 Mexican]. [facility], [place], [place]: May 2015.Nucleated RBC Auto (Bld) [#/Vol]on 59-28-8193Fhwzrzvil RBC (Bld) [#/Vol]10*3/uL<0.01 [facility] SystemNucleated erythrocytes [Presence] in Blood by Automated counton 32-30-2438Eprpmkpez RBC Auto Ql (Bld)0.0 /100{WBC}[facility] SystemPlatelet mean volume Auto (Bld) [Entitic vol]on 28-33-8792Iajoajgq mean volume (Bld) [Entitic vol]9.1 fL9.0-12.7FOhio State University Wexner Medical CenterPlatelets Auto (Bld) [#/Vol]on 12-74-6406Pidosegfn (Bld) [#/Vol]416 10*3/zGLdyj952-925QqbwibsoaOhio State Health SystemProtein [Mass/volume] in Serum or Plasmaon 51-24-8817Oayjolx [Mass/Vol]6.4 g/dL6.3-8.0 [facility] SystemRBC Auto (Bld) [#/Vol]on 26-23-7115PGS (Bld) [#/Vol]4.30 10*6/uL3.90-5.20OhioHealtherum or plasma anion gap determinationon 78-56-1425Ozwwm gap [Moles/Vol]12 mmol/L9-18FOhio State University Wexner Medical CenterBasophils Auto (Bld) [#/Vol]on 36-79-6172Ogrdjjklz (Bld) [#/Vol]10*3/uL<0.11[facility] SystemBasophils/100 WBC Auto (Bld) on 21-65-2045Cwhrwamfu/100 WBC (Bld)0.1 %[facility] SystemBlood manual differential comment interpretation narrativeon 37-26-2568Mxjlnw differential comment Martell (Bld) [Interp]AutoOhio State Health System Eosinophils/100 WBC Auto (Bld)on 53-17-9672Auhetxfowwo/100 WBC (Bld)0.0 % [facility] SystemErythrocyte distribution width Auto (RBC) [Ratio]on 91-35-1760Qegsjpgllaw distribution width (RBC) [Ratio]14.5 %11.5-15.0 [facility] SystemHematocrit Auto (Bld) [Volume fraction]on 06-11-9836Nbfzhdsyxe (Bld) [Volume fraction]37.5 %36.0-46.0[facility] SystemHemoglobin [Mass/volume] in Bloodon 69-89-7827Fbucyiymsm (Bld) [Mass/Vol]12.2 g/dL11.5-15.5FOhio State University Wexner Medical CenterLaboratory - Chemistry and Chemistry - challengeon 24-05-8777Lnkiopy [Mass/Vol]3.8 g/dL 3.9-4.9[facility] SystemALP [Catalytic activity/Vol]65 U/L34-123 [facility] SystemALT [Catalytic activity/Vol]13 U/L7-38[facility] SystemAST [Catalytic activity/Vol]19 U/Y74-55ZilhagvniOhio State Health SystemBilirubin [Mass/Vol]0.3 mg/dL0.2-1.3FOhio State University Wexner Medical CenterCalcium [Mass/Vol]9.8 mg/dL8.5-10.2FOhio State University Wexner Medical Center Chloride [Moles/Vol]101 mmol/B70-625PcjrilxbrOhio State Health SystemCO2 [Moles/Vol]21 mmol/H38-55QapfeagfmOhio State Health SystemCreatinine [Mass/Vol] 0.73 mg/dL0.58-0.96[facility] SystemGlucose [Mass/Vol]118 mg/dL 74-99[facility] SystemComment on above:The [place] Diabetes Association (ADA) provides guidance for cutoff values for fasting glucose and random glucose. The ADA defines fasting as no caloric intake for at least 8 hours. Fasting plasma glucose results between 100 to 125 mg/dL indicate increased risk for diabetes (prediabetes).Fasting plasma glucose results greater than or equal to 126 mg/dL meet the criteria for diagnosis of diabetes. In the absence of unequivocal hyperglycemia, results should be confirmed by repeat testing. In a patient with classic symptoms of hyperglycemia or hyperglycemic crisis, random plasma glucose resultsgreater than or equal to 200 mg/dL meet the criteria for diagnosis of diabetes.Reference: Standard[employer] in Diabetes 2016, [place] Diabetes Association. Diabetes Care. 2016.39(Suppl 1). Magnesium [Mass/Vol]1.3 mg/dL1.7-2.3FOhio State University Wexner Medical CenterPotassium [Moles/Vol]4.2 mmol/L3.7-5.1FUK Healthcareodium [Moles/Vol] 135 mmol/X723-370BaikiukdkOhio State Health SystemUrea nitrogen [Mass/Vol]8 mg/dL7-21[facility] SystemLaboratory - Hematology and Cell countson 66-72-3662Ofbmjimmwbr (Bld) [#/Vol]10*3/uL<0.46[facility] SystemImmature granulocytes (Bld) [#/Vol]0.06 10*3/uL<0.10[facility] SystemImmature granulocytes/100 WBC (Bld)0.8 %[facility] SystemLeukocytes [#/volume] corrected for nucleated erythrocytes in Blood by Automated counon 82-18-0287GLD corrected for nucl RBC Auto (Bld) [#/Vol]7.20 k/uL3.70-11.00[facility] Lymphocytes Auto (Bld) [#/Vol]on 94-03-8957Hwcctoaexex (Bld) [#/Vol]1.44 10*3/uL 1.00-4.00[facility] SystemLymphocytes/100 WBC Auto (Bld)on 99-94-7463Dgxnbkwjvzu/100 WBC (Bld)20.0 %[facility] Health SystemMCH Auto (RBC) [Entitic mass]on 07-38-0159OTI (RBC) [Entitic mass]29.4 pg26.0-34.0 [facility] SystemMCHC Auto (RBC) [Mass/Vol]on 58-15-3649HZEB (RBC) [Mass/Vol]32.5 g/dL30.5-36.0[facility] SystemMCV Auto (RBC) [Entitic vol]on 98-26-3466VKV (RBC) [Entitic vol]90.4 fL80.0-100.0 [facility] SystemMonocytes Auto (Bld) [#/Vol]on 10-27-2023 Monocytes (Bld) [#/Vol]0.25 10*3/uL<0.87[facility] Monocytes/100 WBC Auto (Bld)on 43-87-9931Yjyipiwug/100 WBC (Bld)3.5 %[facility] SystemNeutrophils Auto (Bld) [#/Vol]on 34-45-1476Ijgobtjlmqj (Bld) [#/Vol]5.44 10*3/uL1.45-7.50[facility] Neutrophils/100 WBC Auto (Bld)on 78-27-9419Skdsicrdomu/100 WBC (Bld)75.6 % [facility] SystemNo Panel Informationon 83-00-0058Spooihjeu GFR (CKD-EPI)92 mL/min/1.73m???>=60[facility] SystemComment on above:Estimated Glomerular Filtration Rate (eGFR) is calculated using the 2020 CKD-EPI creatinine equation. This equation utilizes serum creatinine, sex, and age as parameters. The creatinine assay has traceable calibration to isotope dilution-mass spectrometry. Refer to KDIGO guidelines for clinical inte rpretation. In patients with unstable renal function, e.g. those with acute kidney injury, the eGFRmay not accurately reflect actual GFR.Phosphorus Level2.4 mg/dL2.7-4.8[facility] SystemNucleated RBC Auto (Bld) [#/Vol]on 03-83-7507Jrtbkzvjl RBC (Bld) [#/Vol]10*3/uL<0.01[facility] SystemNucleated erythrocytes [Presence] in Blood by Automated counton 10-27-2023 Nucleated RBC Auto Ql (Bld)0.0 /100{WBC}[facility] Platelet mean volume Auto (Bld) [Entitic vol]on 92-24-2015Rcdamejp mean volume (Bld) [Entitic vol]9.4 fL9.0-12.7FOhio State University Wexner Medical CenterPlatelets Auto (Bld) [#/Vol]on 11-07-5740Bgzorvfgz (Bld) [#/Vol]511 10*3/fZ785-747ZqytxyeitOhio State Health SystemProtein [Mass/volume] in Serum or Plasmaon 10-27-2023 Protein [Mass/Vol]6.7 g/dL6.3-8.0[facility] SystemRBC Auto (Bld) [#/Vol]on 61-56-2948HBJ (Bld) [#/Vol]4.15 10*6/uL3.90-5.20OhioHealtherum or plasma anion gap determinationon 98-64-6093Afgen gap [Moles/Vol]13 mmol/L9-18FOhio State University Wexner Medical CenterBasophils Auto (Bld) [#/Vol]on 89-14-5748Yfpyzplmv (Bld) [#/Vol]0.09 10*3/uL<0.11[facility] SystemBasophils/100 WBC Auto (Bld)on 82-45-0308Pbncojhim/100 WBC (Bld) 1.1 %[facility] SystemBlood manual differential comment interpretation narrativeon 13-43-5119Mlshjv differential comment Martell (Bld) [Interp]AutoOhio State Health SystemEosinophils/100 WBC Auto (Bld)on 59-56-8059Dpkwkghjpwa/100 WBC (Bld)5.7 %[facility] Erythrocyte distribution width Auto (RBC) [Ratio]on 82-80-8048Kitqhgcbpht distribution width (RBC) [Ratio]14.7 %11.5-15.0[facility] Hematocrit Auto (Bld) [Volume fraction]on 90-55-6520Iqqwkqjjyz (Bld) [Volume fraction]33.8 %36.0-46.0[facility] SystemHemoglobin [Mass/volume] in Bloodon 77-12-3429Pcapzkqoyi (Bld) [Mass/Vol]11.3 g/dL11.5-15.5 [facility] SystemLaboratory - Chemistry and Chemistry - challengeon 17-66-5606Wikuzfm [Mass/Vol]3.6 g/dL3.9-4.9[facility] SystemALP [Catalytic activity/Vol]58 U/E09-968CnykczqtqOhio State Health SystemALT [Catalytic activity/Vol]8 U/L7-38[facility] SystemAST [Catalytic activity/Vol]14 U/E22-32CddlxsocsOhio State Health SystemBilirubin [Mass/Vol]0.4 mg/dL0.2-1.3FOhio State University Wexner Medical CenterCalcium [Mass/Vol]9.3 mg/dL8.5-10.2FOhio State University Wexner Medical CenterChloride [Moles/Vol]107 mmol/L 97-105[facility] SystemCO2 [Moles/Vol]20 mmol/L65-17XdahuepjuOhio State Health SystemCreatinine [Mass/Vol]0.76 mg/dL0.58-0.96[facility] SystemGlucose [Mass/Vol]93 mg/kG23-23GmsgpsxbsOhio State Health SystemComment on above:The [place] Diabetes Association (ADA) provides guidance for cutoff values for fasting glucose andrandom glucose. The ADA defines fasting as no caloric intake for at least 8 hours. Fasting plasma gl ucose results between 100 to 125 mg/dL indicate increased risk for diabetes (prediabetes).Fasting plasma glucose results greater than or equal to 126 mg/dL meet the criteria for diagnosis of diabetes. In the absence of unequivocal hyperglycemia, results should be confirmed by repeat testing. In a patient with classic symptoms of hyperglycemia or hyperglycemic crisis, random plasma glucose resultsgreater than or equal to 200 mg/dL meet the criteria for diagnosis of diabetes.Reference: Standard[employer] in Diabetes 2016, [place] Diabetes Association. Diabetes Care. 2016.39(Suppl 1).Magnesium [Mass/Vol]1.5 mg/dL 1.7-2.3FOhio State University Wexner Medical CenterPotassium [Moles/Vol]3.6 mmol/L3.7-5.1 OhioHealthodium [Moles/Vol]138 mmol/U767-804DfclrrnobOhio State Health SystemUrea nitrogen [Mass/Vol]13 mg/dL7-21[facility] SystemLaboratory - Hematology and Cell countson 59-12-9289Otcvriwonms (Bld) [#/Vol]0.47 10*3/uL<0.46[facility] SystemImmature granulocytes/100 WBC (Bld)0.1 %[facility] SystemLeukocytes [#/volume] corrected for nucleated erythrocytes in Blood by Automated counon 22-31-8788MRE corrected for nucl RBC Auto (Bld) [#/Vol]8.29 k/uL3.70-11.00 [facility] SystemLymphocytes Auto (Bld) [#/Vol]on 10-26-2023 Lymphocytes (Bld) [#/Vol]3.41 10*3/uL1.00-4.00[facility] Lymphocytes/100 WBC Auto (Bld)on 37-64-6970Pgvrmezslfp/100 WBC (Bld)41.1 % [facility] SystemMCH Auto (RBC) [Entitic mass]on 63-54-5318CIM (RBC) [Entitic mass]30.3 pg26.0-34.0[facility] SystemMCHC Auto (RBC) [Mass/Vol]on 84-98-7884ARNM (RBC) [Mass/Vol]33.4 g/dL30.5-36.0[facility] SystemMCV Auto (RBC) [Entitic vol]on 20-76-2218WXA (RBC) [Entitic vol]90.6 fL80.0-100.0[facility] SystemMonocytes Auto (Bld) [#/Vol]on 98-12-1368Kvqyklnyv (Bld) [#/Vol]1.10 10*3/uL<0.87[facility] SystemMonocytes/100 WBC Auto (Bld)on 21-53-1333Pkjuxqvcd/100 WBC (Bld)13.3 %[facility] SystemNeutrophils Auto (Bld) [#/Vol]on 32-83-6977Knlguslrtxj (Bld) [#/Vol]3.21 10*3/uL1.45-7.50[facility] SystemNeutrophils/100 WBC Auto (Bld)on 63-54-5994Mwnnaaptrlu/100 WBC (Bld)38.7 %[facility] SystemNo Panel Informationon 10-26-2023 Estimated GFR (CKD-EPI)88 mL/min/1.73m???>=60[facility] Comment on above:Estimated Glomerular Filtration Rate (eGFR) is calculated using the 2020 CKD-EPI creatinine equation. This equation utilizes serum creatinine, sex, and age as parameters. The creatinine assay has traceable calibration to isotope dilution-mass spectrometry. Refer to KDIGO guidelines for clinical inte rpretation. In patients with unstable renal function, e.g. those with acute kidney injury, the eGFRmay not accurately reflect actual GFR.Immature Granulocyte # (Auto)<0.03 k/uL<0.10[facility] SystemPhosphorus Level2.5 mg/dL2.7-4.8[facility] SystemNucleated RBC Auto (Bld) [#/Vol]on 61-26-8157Wfnzgztnf RBC (Bld) [#/Vol]10*3/uL<0.01[facility] SystemNucleated erythrocytes [Presence] in Blood by Automated counton 66-88-0867Uzhmhkust RBC Auto Ql (Bld)0.0 /100{WBC}[facility] SystemPlatelet mean volume Auto (Bld) [Entitic vol]on 15-49-2639Yzhvrdab mean volume (Bld) [Entitic vol]8.9 fL9.0-12.7FOhio State University Wexner Medical Center Platelets Auto (Bld) [#/Vol]on 12-17-8780Hldauxthq (Bld) [#/Vol]516 10*3/uL 150-400[facility] SystemProtein [Mass/volume] in Serum or Plasma on 71-87-1238Xvijkty [Mass/Vol]5.6 g/dL6.3-8.0[facility] RBC Auto (Bld) [#/Vol]on 38-53-9063NLU (Bld) [#/Vol]3.73 10*6/uL3.90-5.20 OhioHealtherum or plasma anion gap determinationon 03-48-8456Laqkk gap [Moles/Vol]11 mmol/L9-18FOhio State University Wexner Medical Center Activated partial thromboplastin time (aPTT) in platelet poor plasma by coagulation aon 03-44-4503zWZM Coag (PPP) [Time]27.1 s23.0-32.4FOhio State University Wexner Medical CenterBasophils Auto (Bld) [#/Vol]Ordered By: Dontrell Woodruff on 02-48-4226Vttogjnab (Bld) [#/Vol]0.1 10*3/uL0.0-0.2FOhio State University Wexner Medical CenterBasophils/100 WBC Auto (Bld)Ordered By: Dontrell Woodruff on 10-25-2023 Basophils/100 WBC (Bld)1.4 %.[facility] SystemCalcium [Mass/volume] in Serum or PlasmaOrdered By: Dontrell Woodruff on 02-77-4139Xaozvih [Mass/Vol]8.4 mg/dL8.6-10.3FOhio State University Wexner Medical CenterCarbon dioxide, total [Moles/volume] in Serum or PlasmaOrdered By: Dontrell Woodruff on 10-25-2023 CO2 [Moles/Vol]18.2 mmol/L21.0-31.0[facility] SystemChloride [Moles/volume] in Serum or PlasmaOrdered By: Dontrell Woodruff on 10-25-2023 Chloride [Moles/Vol]109 mmol/G10-856AsqzphtmyOhio State Health SystemCreatinine [Mass/volume] in Serum or PlasmaOrdered By: Dontrell Woodruff on 10-25-2023 Creatinine [Mass/Vol]0.92 mg/dL0.60-1.20[facility] SystemComment on above:Delta: 1.66 on 10/24/23Eosinophils Auto (Bld) [#/Vol]Ordered By: Dontrell Woodruff on 36-41-9462Ypxuowhlarl (Bld) [#/Vol]0.3 10*3/uL0.0-0.45 [facility] SystemEosinophils/100 WBC Auto (Bld)Ordered By: Dontrell Woodruff on 78-04-6669Xsytpzkwnjr/100 WBC (Bld)4.0 %.[facility] SystemErythrocyte distribution width Auto (RBC) [Ratio]on 10-25-2023 Erythrocyte distribution width (RBC) [Ratio]14.7 %11.5-15.0[facility] SystemErythrocyte distribution width Auto (RBC) [Ratio]Ordered By: Dontrell Woodruff on 45-72-8125Ctxhplskjaa distribution width (RBC) [Ratio]14.8 % 11.9-15.3FOhio State University Wexner Medical CenterGlucose Glucometer (BldC) [Mass/Vol] Ordered By: Enoch Rees on 89-31-7902Xttwhpb [Mass/Vol]68 mg/dLOhio State Health SystemComment on above:Random Glucose Reference Range is dependent on time and content of last meal. Glucose of more than 200 mg/dL in a nonstressed, ambulatory subject supports the diagnosis of Diabetes Mellitus. Glucose [Mass/volume] in Serum or PlasmaOrdered By: Dontrell Woodruff on 10-25-2023 Glucose [Mass/Vol]221 mg/gM83-627AauouwljoOhio State Health SystemComment on above:Delta: 75 on 10/24/23ADA recommended reference rangeRandom Glucose Reference Range is dependent on time and content of last meal. Glucose of more than 200 mg/dL in a nonstressed, ambulatory subject supports the diagnosis of Diabetes Mellitus.Hematocrit Auto (Bld) [Volume fraction]on 94-39-5327Tdptuyvuhg (Bld) [Volume fraction]34.8 %36.0-46.0[facility] Hematocrit Auto (Bld) [Volume fraction]Ordered By: Dontrell Woodruff on 10-25-2023 Hematocrit (Bld) [Volume fraction]33.0 %34.0-46.4FOhio State University Wexner Medical CenterHemoglobin [Mass/volume] in Bloodon 73-71-4234Rriakklfxq (Bld) [Mass/Vol] 11.6 g/dL11.5-15.5FOhio State University Wexner Medical CenterHemoglobin [Mass/volume] in BloodOrdered By: Dontrell Woodruff on 23-80-0153Ddqtksbbbt (Bld) [Mass/Vol]11.0 g/dL11.8-15.4FOhio State University Wexner Medical CenterINR in Platelet poor plasma by Coagulation assayon 31-01-0094SKK Coag (PPP) [Relative time]1.1 {INR}0.9-1.3 [facility] SystemComment on above:Vitamin K Antagonist (VKA) Therapeutic Range: INR 2 to 3 (Target INR of 2.5)Note: For patients treated with VKA drugs, such as warfarin, the [place] [employer] 2012 Guideline recommends a therapeutic INR range of 2 to 3 (target INR of 2.5). This recommendation includes high-risk patients with antiphospholipid syndrome with previous arterial or venous thromboembolism, current-generation mechanical or bioprosthetic aortic heart valve replacement.Note: Patients with mechanical aor tic valve replacement and additional risk factors for thromboembolic events (atrial fibrillation, previous thromboembolism, LV dysfunction, hypercoagulable conditions) or an older generation mechanical AVR (i.e., ball in-Cage) or any mechanical MVR should have a INR therapeutic range of 2.5 to 3.5 (target INR of 3).Vivian KEATING, et al. Chest 2012, 141:7S-47SRena RA, et al. [facility] 2017, 70: 252-289Laboratory - Chemistry and Chemistry - challengeon 94-00-4700Fhahawu [Mass/Vol]3.2 g/dL3.9-4.9[facility] SystemALP [Catalytic activity/Vol]56 U/M82-730MiiizxwofOhio State Health SystemALT [Catalytic activity/Vol]13 U/L7-38[facility] SystemAST [Catalytic activity/Vol]16 U/K11-16NjajiumysOhio State Health SystemBilirubin [Mass/Vol]0.4 mg/dL0.2-1.3FOhio State University Wexner Medical CenterCalcium [Mass/Vol]9.1 mg/dL 8.5-10.2FOhio State University Wexner Medical CenterChloride [Moles/Vol]109 mmol/L97-105 [facility] SystemCO2 [Moles/Vol]20 mmol/X98-76OcxljgtkbOhio State Health SystemCreatinine [Mass/Vol]0.77 mg/dL0.58-0.96[facility] SystemGlucose [Mass/Vol]97 mg/cP79-79MfrvqlvrwOhio State Health System Comment on above:The [place] Diabetes Association (ADA) provides guidance for cutoff values for fasting glucose andrandom glucose. The ADA defines fasting as no caloric intake for at least 8 hours. Fasting plasma glucose results between 100 to 125 mg/dL indicate increased risk for diabetes (prediabetes).Fasting pl asma glucose results greater than or equal to 126 mg/dL meet the criteria for diagnosis of diabetes. In the absence of unequivocal hyperglycemia, results should be confirmed by repeat testing. In a patient with classic symptoms of hyperglycemia or hyperglycemic crisis, random plasma glucose resultsgreater than or equal to 200 mg/dL meet the criteria for diagnosis of diabetes.Reference: [employer] Care in Diabetes 2016, [place] [employer]. Diabetes Care. 2016.39(Suppl 1).Magnesium [Mass/Vol]1.7 mg/dL1.7-2.3FOhio State University Wexner Medical CenterPotassium [Moles/Vol]3.6 mmol/L3.7-5.1FUK Healthcareodium [Moles/Vol]137 mmol/D569-444PmccnlkiwOhio State Health SystemUrea nitrogen [Mass/Vol]21 mg/dL7-21[facility] Leukocytes [#/volume] corrected for nucleated erythrocytes in Blood by Automated counon 67-72-9347KGE corrected for nucl RBC Auto (Bld) [#/Vol]8.33 k/uL 3.70-11.00[facility] SystemLeukocytes [#/volume] corrected for nucleated erythrocytes in Blood by Automated counOrdered By: Dontrell Woodruff on 59-12-4600XPI corrected for nucl RBC Auto (Bld) [#/Vol]6.5 10*3/uL3.8-11.6 [facility] SystemLymphocytes Auto (Bld) [#/Vol]Ordered By: Dontrell Woodruff on 26-43-1481Udawtifrwse (Bld) [#/Vol]2.1 10*3/uL1.00-4.8 [facility] SystemLymphocytes/100 WBC Auto (Bld)Ordered By: Dontrell Woodruff on 32-15-4625Cyvllafsmbz/100 WBC (Bld)32.8 %.[facility] Auto (RBC) [Entitic mass]on 45-45-8967ZEE (RBC) [Entitic mass] 30.4 pg26.0-34.0[facility] Auto (RBC) [Entitic mass] Ordered By: Dontrell Woodruff on 96-12-9724HNW (RBC) [Entitic mass]30.3 pg24.7-34.3 [facility] Auto (RBC) [Mass/Vol]on 94-04-0582ZYJQ (RBC) [Mass/Vol]33.3 g/dL30.5-36.0[facility] Auto (RBC) [Mass/Vol]Ordered By: Dontrell Woodruff on 58-01-7358WOMB (RBC) [Mass/Vol] 33.2 g/dL32.0-35.0[facility]V Auto (RBC) [Entitic vol] on 73-87-0286XIM (RBC) [Entitic vol]91.1 fL80.0-100.0[facility] HealthV Auto (RBC) [Entitic vol]Ordered By: Dontrell Woodruff on 02-43-4991DOL (RBC) [Entitic vol]91.2 jR18-922Wmnvcvxcl Regional Medical CenterMagnesium [Mass/volume] in Serum or PlasmaOrdered By: Enoch Rees on 77-44-1887Fdsmjbaap [Mass/Vol]1.7 mg/dL1.9-2.7FOhio State University Wexner Medical CenterMonocytes Auto (Bld) [#/Vol]Ordered By: Dontrell Woodruff on 74-15-5559Zhakcwhyk (Bld) [#/Vol]0.5 10*3/uL0.0-0.8[facility] SystemMonocytes/100 WBC Auto (Bld) Ordered By: Dontrell Woodruff on 32-99-7360Abbrqqeau/100 WBC (Bld)7.8 %.[facility] Health SystemNeutrophils Auto (Bld) [#/Vol]Ordered By: Dontrell Woodruff on 35-84-6802Nqbqdpneigd (Bld) [#/Vol]3.5 10*3/uL1.8-7.7FOhio State University Wexner Medical CenterNeutrophils/100 WBC Auto (Bld)Ordered By: Dontrell Woodruff on 50-47-8169Wncnybanqnw/100 WBC (Bld)54.0 %.[facility] SystemNo Panel Informationon 12-38-2685Ajhiywjaa GFR (CKD-EPI)86 mL/min/1.73m???>=60 [facility] SystemComment on above:Estimated Glomerular Filtration Rate (eGFR) is calculated using the 2020 CKD-EPI creatinine equation. This equation utilizes serum creatinine, sex, and age as parameters. The creatinine assay has traceable calibration to isotope dilution-mass spectrometry. Refer to KDIGO guidelines for clinical interpretation. In patients with unstable renal function, e.g. those with acute kidney injury, the eGFRmay not accurately reflect actual GFR.Phosphorus Level1.8 mg/dL2.7-4.8[facility] SystemNo Panel InformationOrdered By: Dontrell Woodruff on 46-73-5915Oyjhfrpih GFR (CKD-EPI)> 60.0 mL/MinOhio State Health System Pharmacy Creatinine Clearance (Chem61.36[facility] Nucleated RBC Auto (Bld) [#/Vol]on 57-47-4412Lisqqfffh RBC (Bld) [#/Vol]10*3/uL <0.01[facility] SystemNucleated erythrocytes [Presence] in Blood by Automated countOrdered By: Dontrell Woodruff on 94-12-0740Awxkmtlbq RBC Auto Ql (Bld)0.2 /100{WBC}0-0.5FOhio State University Wexner Medical CenterPlatelet mean volume Auto (Bld) [Entitic vol]on 30-42-9877Opbsoash mean volume (Bld) [Entitic vol]8.7 fL9.0-12.7FOhio State University Wexner Medical CenterPlatelet mean volume Auto (Bld) [Entitic vol]Ordered By: Dontrell Woodruff on 26-67-4132Asbsyvwc mean volume (Bld) [Entitic vol]7.1 fL6.3-10.7FOhio State University Wexner Medical CenterPlatelets Auto (Bld) [#/Vol]on 65-99-2977Yhgwftaqw (Bld) [#/Vol]492 10*3/eE779-653KyxdsmovxOhio State Health SystemPlatelets Auto (Bld) [#/Vol]Ordered By: Dontrell Woodruff on 22-32-1898Bghmwmqwd (Bld) [#/Vol]494 10*3/xO220-884VrxxwjihkOhio State Health SystemPotassium [Moles/volume] in Serum or PlasmaOrdered By: Dontrell Woodruff on 50-83-4410Dfapqiuah [Moles/Vol]4.1 mmol/L3.5-5.1FOhio State University Wexner Medical CenterProtein [Mass/volume] in Serum or Plasmaon 15-83-5473Tzannhd [Mass/Vol]5.7 g/dL6.3-8.0[facility] SystemProthrombin time (PT)on 10-25-2023 PT Coag (PPP) [Time]11.2 s9.7-13.0[facility] SystemRBC Auto (Bld) [#/Vol]on 77-89-3964NID (Bld) [#/Vol]3.82 10*6/uL3.90-5.20[facility] SystemRBC Auto (Bld) [#/Vol]Ordered By: Dontrell Woodruff on 50-64-0092UMO (Bld) [#/Vol]3.62 10*6/uL3.60-5.00OhioHealtherum or plasma anion gap determinationon 81-12-6244Mtowr gap [Moles/Vol]8 mmol/L9-18FUK Healthcareerum or plasma anion gap determinationOrdered By: Dontrell Woodruff on 48-92-5686Ahegz gap [Moles/Vol]11.9 mmol/L6.0-15.0OhioHealthodium [Moles/volume] in Serum or PlasmaOrdered By: Dontrell Woodruff on 65-95-5386Qqblrx [Moles/Vol]135 mmol/L 136-145[facility] SystemUrea nitrogen [Mass/volume] in Serum or PlasmaOrdered By: Dontrell Woodruff on 59-54-0392Tbvl nitrogen [Mass/Vol]27 mg/dL 7-25[facility] SystemWBC Auto (Bld) [#/Vol]Ordered By: Dontrell Woodruff on 39-49-6205ONR (Bld) [#/Vol]6.5 10*3/uL3.8-11.6FOhio State University Wexner Medical CenterNo Panel InformationOrdered By: Enoch Rees on 94-31-3372Iepjezu Glucose CommentSee commentOhio State Health SystemComment on above: Glu2: Will Repeat TestActivated partial thromboplastin time (aPTT) in platelet poor plasma by coagulation aOrdered By: Dontrell Davis on 63-40-6829oYFD Coag (PPP) [Time]25.8 s25.1-36.5FOhio State University Wexner Medical CenterComment on above:A hematocrit value greater than 55% may lead to inaccurate results in coagulation testing. Patientshaving hematocrit values >55% require a special collection tube for coagulation studies. Please contact the laboratory at [phone] for redraw instructions.Alanine aminotransferase [Enzymatic activity/volume] in Serum or PlasmaOrdered By: Dontrell Davis on 32-51-0212RVY [Catalytic activity/Vol]17 U/L7-52[facility] SystemAlbumin [Mass/volume] in Serum or Plasma by Bromocresol green (BCG) dye binding methoOrdered By: Dontrell Davis on 98-92-4420Eseudrt BCG dye [Mass/Vol]4.7 g/dL3.5-5.7FOhio State University Wexner Medical CenterAlkaline phosphatase [Enzymatic activity/volume] in Serum or PlasmaOrdered By: Dontrell Davis on 91-64-6842CQF [Catalytic activity/Vol]71 U/L 34-104[facility] Health SystemAspartate aminotransferase [Enzymatic activity/volume] in Serum or PlasmaOrdered By: Dontrell Davis on 49-98-3945SRY [Catalytic activity/Vol]23 U/D88-21OpchketirOhio State Health SystemAutomated erythrocytes count in urine sediment (number/area)Ordered By: Dontrell Davis on 52-49-5346CJH Auto (Urine sed) [#/Area]3-4 [HPF]0-4FOhio State University Wexner Medical CenterAutomated leukocytes count in urine sediment (number/area)Ordered By: Dontrell Davis on 06-32-5315TTC Auto (Urine sed) [#/Area]10-19 [HPF]0-4FOhio State University Wexner Medical CenterAutomated urine hyaline casts count (number/volume) Ordered By: Dontrell Davis on 82-29-8530Qyinzbv casts Auto (U) [#/Vol]20-49 [LPF]0-1FOhio State University Wexner Medical CenterBasophils Auto (Bld) [#/Vol]Ordered By: Dontrell Davis on 06-26-4179Skdzirqcc (Bld) [#/Vol]0.1 10*3/uL0.0-0.2FOhio State University Wexner Medical CenterBasophils/100 WBC Auto (Bld)Ordered By: Dontrell Davis on 51-18-6091Fxuncinyd/100 WBC (Bld)0.8 %.[facility] Bilirubin Test strip Ql (U)Ordered By: Dontrell Davis on 12-11-8030Kvkcevwxw Ql (U)NegativeNegativeOhio State Health SystemBilirubin.direct [Mass/volume] in Serum or PlasmaOrdered By: Dontrell Davis on 10-23-2023 Bilirubin.direct [Mass/Vol]0.10 mg/dL0.03-0.18FOhio State University Wexner Medical Center Bilirubin.total [Mass/volume] in Serum or PlasmaOrdered By: Dontrell Davis on 43-96-3479Prymaftwz [Mass/Vol]0.7 mg/dL0.3-1.0[facility] Calcium [Mass/volume] in Serum or PlasmaOrdered By: Dontrell Davis on 10-23-2023 Calcium [Mass/Vol]10.9 mg/dL8.6-10.3FOhio State University Wexner Medical CenterCarbon dioxide, total [Moles/volume] in Serum or PlasmaOrdered By: Dontrell Davis on 38-03-3715NN5 [Moles/Vol]18.2 mmol/L21.0-31.0[facility] Casts typing in urine sediment by light microscopyOrdered By: Dontrell Davis on 89-27-4191Lqghl LM Nom (Urine sed)None seen [LPF]None SeenOhio State Health SystemChloride [Moles/volume] in Serum or PlasmaOrdered By: Dontrell Davis on 11-83-9782Jexhetqm [Moles/Vol]95 mmol/T43-693WuqgfqrdrOhio State Health SystemColor Auto (U)Ordered By: Dontrell Davis on 21-70-7625Mench (U) Dark yellowYellowOhio State Health SystemCreatinine [Mass/volume] in Serum or PlasmaOrdered By: Dontrell Davis on 96-48-4352Qfnunrmqlo [Mass/Vol]2.33 mg/dL0.60-1.20[facility] SystemEosinophils Auto (Bld) [#/Vol] Ordered By: Dontrell Davis on 33-50-0454Ogkxzztpzug (Bld) [#/Vol]0.1 10*3/uL 0.0-0.45[facility] SystemEosinophils/100 WBC Auto (Bld)Ordered By: Dontrell Davis on 40-80-3005Yiijftdkdpq/100 WBC (Bld)0.6 %.[facility] SystemErythrocyte distribution width Auto (RBC) [Ratio]Ordered By: Dontrell Davis on 17-94-0142Hlpqbsshmor distribution width (RBC) [Ratio]14.7 %11.9-15.3FOhio State University Wexner Medical CenterGlobulin Calc (S) [Mass/Vol]Ordered By: Dontrell Davis on 34-96-9846Artzakdi (S) [Mass/Vol]3.4 g/dLOhio State Health SystemGlucose [Mass/volume] in Serum or PlasmaOrdered By: Dontrell Davis on 00-75-4436Arpgrqf [Mass/Vol]101 mg/qX16-421KmkvzywweOhio State Health SystemComment on above:ADA recommended reference rangeRandom Glucose Reference Range is dependent on time and content of last meal. Glucose of more than 200 mg/dL in a nonstressed, ambulatory subject supports the diagnosisof Diabetes Mellitus.Hematocrit Auto (Bld) [Volume fraction]Ordered By: Dontrell Davis on 25-07-5916Mccsnxvlnh (Bld) [Volume fraction]45.0 %34.0-46.4FOhio State University Wexner Medical CenterHemoglobin [Mass/volume] in BloodOrdered By: Dontrell Davis on 57-03-4331Fbrfjsdwvr (Bld) [Mass/Vol]15.0 g/dL11.8-15.4FOhio State University Wexner Medical CenterINR in Platelet poor plasma by Coagulation assayOrdered By: Dontrell Davis on 74-59-6330ULD Coag (PPP) [Relative time]1.0 {INR}[facility] SystemComment on above:INR Therapeutic Range A) Pre- and Peroperative OAT started two weeks before surgery. NOT HIP SURGERY: 1.5 - 2.5 HIP SURGERY: 2 - 3B) Primary and secondary prevention of venous THROMBOSIS: 2 - 3C) Active venous thrombosis, pulmonary embolismand prevention of recurrent venous thrombosis: 2 - 3D) Prevention of arterial thromboembolismincluding patients with mechanical heart valves: 3 - 4.5Ketones Auto test strip (U) [Mass/Vol]Ordered By: Dontrell Davis on 96-75-7743Wqbbyzl (U) [Mass/Vol]Trace NegativeOhio State Health SystemLactate [Moles/volume] in Serum or PlasmaOrdered By: Dontrell Davis on 77-40-8299Kgxndlx [Moles/Vol]1.1 mmol/L 0.5-2.2FOhio State University Wexner Medical CenterLeukocytes [#/volume] corrected for nucleated erythrocytes in Blood by Automated counOrdered By: Dontrell Davis on 15-72-5700HQK corrected for nucl RBC Auto (Bld) [#/Vol]12.8 10*3/uL3.8-11.6 [facility] SystemLipase [Enzymatic activity/volume] in Serum or PlasmaOrdered By: Dontrell Davis on 59-07-9819Zwxuxu [Catalytic activity/Vol]7.0 U/L11.0-82.0[facility] Health SystemLymphocytes Auto (Bld) [#/Vol] Ordered By: Dontrell Davis on 24-16-0539Wbzkoabbrcs (Bld) [#/Vol]2.3 10*3/uL 1.00-4.8[facility] SystemLymphocytes/100 WBC Auto (Bld)Ordered By: Dontrell Davis on 32-51-2206Gwgzjsrbuat/100 WBC (Bld)17.6 %.[facility] Auto (RBC) [Entitic mass]Ordered By: Dontrell Davis on 06-19-5782CLJ (RBC) [Entitic mass]30.5 pg24.7-34.3FOhio State University Wexner Medical CenterMCHC Auto (RBC) [Mass/Vol]Ordered By: Dontrell Davis on 33-55-1322RJNW (RBC) [Mass/Vol]33.4 g/dL32.0-35.0[facility] Health SystemMCV Auto (RBC) [Entitic vol]Ordered By: Dontrell Davis on 94-30-3513WCD (RBC) [Entitic vol]91.3 jI66-984LsozvjvneOhio State Health SystemMagnesium [Mass/volume] in Serum or PlasmaOrdered By: Dontrell Davis on 07-96-1035Dutkjrtca [Mass/Vol]2.0 mg/dL1.9-2.7FOhio State University Wexner Medical CenterMonocyte distribution width [Entitic volume] in Blood by AutomatedOrdered By: Dontrell Davis on 10-23-2023 Monocyte distribution width Auto (Bld) [Entitic vol]21.44 %0.00-20.00[facility] SystemComment on above:For adults in ED, MDW > 20.0 may be associated with a higher risk of sepsis during the first 12 hrs of hospital admissionMonocytes Auto (Bld) [#/Vol]Ordered By: Dontrell Davis on 10-23-2023 Monocytes (Bld) [#/Vol]1.0 10*3/uL0.0-0.8[facility] Monocytes/100 WBC Auto (Bld)Ordered By: Dontrell Davis on 10-23-2023 Monocytes/100 WBC (Bld)7.8 %.[facility] Health SystemNeutrophils Auto (Bld) [#/Vol]Ordered By: Dontrell Davis on 65-55-9608Ardodndozqi (Bld) [#/Vol] 9.4 10*3/uL1.8-7.7FOhio State University Wexner Medical CenterNeutrophils/100 WBC Auto (Bld)Ordered By: Dontrell Davis on 34-91-7883Rqfzheapipb/100 WBC (Bld)73.2 %. [facility] SystemNitrite Test strip Ql (U)Ordered By: Dontrell Davis on 01-72-4534Naptqrl Ql (U)NegativeNegativeOhio State Health SystemNo Panel InformationOrdered By: Dontrell Davis on 43-32-6469Fyzpytlhx GFR (CKD-EPI)22.798 mL/MinOhio State Health SystemPharmacy Creatinine Clearance (Chem25.60[facility] SystemNucleated erythrocytes [Presence] in Blood by Automated countOrdered By: Dontrell Davis on 10-23-2023 Nucleated RBC Auto Ql (Bld)0.1 /100{WBC}0-0.5FOhio State University Wexner Medical Center Platelet mean volume Auto (Bld) [Entitic vol]Ordered By: Dontrell aDvis on 31-67-0869Pefrtegd mean volume (Bld) [Entitic vol]6.9 fL6.3-10.7FOhio State University Wexner Medical CenterPlatelets Auto (Bld) [#/Vol]Ordered By: Dontrell Davis on 87-28-9706Ngqyhesmz (Bld) [#/Vol]707 10*3/kG119-158RolfadthyOhio State Health SystemPotassium [Moles/volume] in Serum or PlasmaOrdered By: Dontrell Davis on 20-72-1817Thnwgggqm [Moles/Vol]4.4 mmol/L3.5-5.1FOhio State University Wexner Medical CenterProtein Auto test strip (U) [Mass/Vol]Ordered By: Dontrell Davis on 25-20-3147Dpnvqjd (U) [Mass/Vol]Trace mg/dLNegSelect Medical Specialty Hospital - AkronProtein [Mass/volume] in Serum or PlasmaOrdered By: Dontrell Davis on 36-89-3217Evjoxcj [Mass/Vol]8.1 g/dL6.4-8.9[facility] Prothrombin time (PT)Ordered By: Dontrell Davis on 65-30-8535WX Coag (PPP) [Time]12.1 s9.0-12.9[facility] SystemComment on above:A hematocrit value greater than 55% may lead to inaccurate results in coagulation testing. Patientshaving hematocrit values >55% require a special collection tube for coagulation studies. Please contact the laboratory at [phone] for redraw instructions.RBC Auto (Bld) [#/Vol]Ordered By: Dontrell Davis on 16-79-5013HEF (Bld) [#/Vol]4.93 10*6/uL3.60-5.00OhioHealtherum or plasma albumin/globulin mass ratioOrdered By: Dontrell Davis on 72-47-3609Pkpdwbn/Globulin [Mass ratio]1.4 {ratio}OhioHealtherum or plasma anion gap determinationOrdered By: Dontrell Davis on 94-81-7471Fawbs gap [Moles/Vol]19.2 mmol/L6.0-15.0OhioHealtherum or plasma non-glucuronidated bilirubin measurement (mass/volume) Ordered By: Dontrell Davis on 66-24-3862Qkwuggaxx.indirect [Mass/Vol]0.6 mg/dL OhioHealthodium [Moles/volume] in Serum or PlasmaOrdered By: Dontrell Davis on 90-00-5585Ukewfj [Moles/Vol]128 mmol/C258-869QfbqvdmeeOhioHealthpecific gravity Auto test strip (U) [Rel density]Ordered By: Dontrell Davis on 68-76-6368Fxtllaax gravity (U) [Rel density]1.018 1.001-1.030OhioHealthquamous epithelial cells detection in urine sediment by light microscopyOrdered By: Dontrell Davis on 10-23-2023 Epithelial cells.squamous LM Ql (Urine sed)3-4 [HPF]0-2FOhio State University Wexner Medical CenterUrea nitrogen [Mass/volume] in Serum or PlasmaOrdered By: Dontrell Davis on 08-59-6200Ipzo nitrogen [Mass/Vol]44 mg/dL7-25[facility] SystemUrine bacteria detection by automated methodOrdered By: Dontrell Davis on 91-80-3342Gdxrxeqg Auto Ql (U)None seenNone SeenOhio State Health SystemUrine clarity by refractometry automatedOrdered By: Dontrell Davis on 33-54-7674Xrvwlfl Refractometry automated (U)CloudyClearFOhio State University Wexner Medical CenterUrine culture routineOrdered By: Dontrell Davis on 10-23-2023 Bacteria identified Cx Nom (U)2 DaysOhio State Health SystemUrine glucose measurement by automated test strip (mass/volume)Ordered By: Dontrell Davis on 04-59-9912Kiahnbw Auto test strip (U) [Mass/Vol]Normal mg/dLNormal [facility] SystemUrine hemoglobin detection by automated test stripOrdered By: Dontrell Davis on 44-53-2966Jqalznokjc Auto test strip Ql (U) NegativeNegativeOhio State Health SystemUrine leukocyte esterase detection by automated test stripOrdered By: Dontrell Davis on 10-23-2023 Leukocyte esterase Auto test strip Ql (U)2+NegativeOhio State Health SystemUrobilinogen Auto test strip (U) [Mass/Vol]Ordered By: Dontrell Davis on 16-24-9972Fqzwiwmgoecr (U) [Mass/Vol]Normal mg/dLNormMcCullough-Hyde Memorial HospitalWBC Auto (Bld) [#/Vol]Ordered By: Dontrell Davis on 51-74-0855XBN (Bld) [#/Vol]12.8 10*3/uL3.8-11.6FOhio State University Wexner Medical CenterpH Auto test strip (U)Ordered By: Dontrell Davis on 47-43-3619xQ (U)5.0 [pH]5.0-9.0[facility] SystemBasophils Auto (Bld) [#/Vol]on 04-08-4485Jiwltzfjm (Bld) [#/Vol]0.11 10*3/uL<0.11[facility] SystemBasophils/100 WBC Auto (Bld)on 69-12-4353Xvmpcumdq/100 WBC (Bld)1.5 %[facility] Blood manual differential comment interpretation narrativeon 29-08-4175Fgpvsc differential comment Martell (Bld) [Interp]AutoOhio State Health System Eosinophils/100 WBC Auto (Bld)on 59-54-8782Nenzpeuybai/100 WBC (Bld)6.4 % [facility] SystemErythrocyte distribution width Auto (RBC) [Ratio]on 40-56-9635Rpbljcvzboo distribution width (RBC) [Ratio]15.7 %11.5-15.0 [facility] SystemHematocrit Auto (Bld) [Volume fraction]on 19-54-4219Wvwzjlwqol (Bld) [Volume fraction]39.4 %36.0-46.0[facility] SystemHemoglobin [Mass/volume] in Bloodon 98-34-2461Jdxgijbzvk (Bld) [Mass/Vol]13.0 g/dL11.5-15.5FOhio State University Wexner Medical CenterLaboratory - Chemistry and Chemistry - challengeon 82-39-6178Agrlpmn [Mass/Vol]4.0 g/dL 3.9-4.9[facility] SystemALP [Catalytic activity/Vol]63 U/L34-123 [facility] SystemALT [Catalytic activity/Vol]14 U/L7-38[facility] SystemAST [Catalytic activity/Vol]19 U/G68-62IodqyvhexOhio State Health SystemBilirubin [Mass/Vol]0.4 mg/dL0.2-1.3FOhio State University Wexner Medical CenterCalcium [Mass/Vol]9.9 mg/dL8.5-10.2FOhio State University Wexner Medical Center Chloride [Moles/Vol]105 mmol/Y79-257HxtpsoqkpOhio State Health SystemCO2 [Moles/Vol]24 mmol/V99-76EhhcwngzdOhio State Health SystemCreatinine [Mass/Vol] 1.08 mg/dL0.58-0.96[facility] SystemGlucose [Mass/Vol]99 mg/dL 74-99[facility] SystemComment on above:The [place] [employer] (ADA) provides guidance for cutoff values for fasting glucose and random glucose. The ADA defines fasting as no caloric intake for at least 8 hours. Fasting plasma glucose results between 100 to 125 mg/dL indicate increased risk for diabetes (prediabetes).Fasting plasma glucose results greater than or equal to 126 mg/dL meet the criteria for diagnosis of diabetes. In the absence of unequivocal hyperglycemia, results should be confirmed by repeat testing. In a patient with classic symptoms of hyperglycemia or hyperglycemic crisis, random plasma glucose resultsgreater than or equal to 200 mg/dL meet the criteria for diagnosis of diabetes.Reference: Standard[employer] Care in Diabetes 2016, [place] [employer]. Diabetes Care. 2016.39(Suppl 1). Potassium [Moles/Vol]4.2 mmol/L3.7-5.1FUK Healthcareodium [Moles/Vol]139 mmol/Y636-358JddskvhudOhio State Health SystemUrea nitrogen [Mass/Vol]15 mg/dL7-21[facility] SystemLaboratory - Hematology and Cell countson 43-03-0256Cojzsdhjahy (Bld) [#/Vol]0.46 10*3/uL<0.46[facility] SystemImmature granulocytes/100 WBC (Bld)0.3 %[facility] SystemLeukocytes [#/volume] corrected for nucleated erythrocytes in Blood by Automated counon 62-00-4334XKZ corrected for nucl RBC Auto (Bld) [#/Vol]7.22 k/uL3.70-11.00[facility] Lymphocytes Auto (Bld) [#/Vol]on 71-69-1014Vewkervgshd (Bld) [#/Vol]2.10 10*3/uL 1.00-4.00[facility] SystemLymphocytes/100 WBC Auto (Bld)on 09-61-3693Ubrxtgtwdsn/100 WBC (Bld)29.1 %[facility] HealthH Auto (RBC) [Entitic mass]on 44-08-0054EUT (RBC) [Entitic mass]29.8 pg26.0-34.0 [facility] SystemMCHC Auto (RBC) [Mass/Vol]on 59-23-7089WFBO (RBC) [Mass/Vol]33.0 g/dL30.5-36.0[facility] SystemMCV Auto (RBC) [Entitic vol]on 44-48-4410QZG (RBC) [Entitic vol]90.4 fL80.0-100.0 [facility] SystemMonocytes Auto (Bld) [#/Vol]on 10-12-2023 Monocytes (Bld) [#/Vol]0.85 10*3/uL<0.87[facility] Monocytes/100 WBC Auto (Bld)on 88-83-2789Ssghjqpzu/100 WBC (Bld)11.8 %[facility] Health SystemNeutrophils Auto (Bld) [#/Vol]on 66-53-8735Vlckulijque (Bld) [#/Vol]3.68 10*3/uL1.45-7.50[facility] Neutrophils/100 WBC Auto (Bld)on 62-73-4759Nrmxoiovmej/100 WBC (Bld)50.9 % [facility] SystemNo Panel Informationon 87-12-5200D-Reactive Protein, Quantitative0.4 mg/dL<0.9[facility] SystemEstimated GFR (CKD-EPI)57 mL/min/1.73m???>=60[facility] SystemComment on above:Estimated Glomerular Filtration Rate (eGFR) is calculated using the 2020 CKD-EPI creatinine equation. This equation utilizes serum creatinine, sex, and age as parameters. The creatinine assay has traceable calibration to isotope dilution-mass spectrometry. Refer to KDIGO guidelines for clinical inte rpretation. In patients with unstable renal function, e.g. those with acute kidney injury, the eGFRmay not accurately reflect actual GFR.Immature Granulocyte # (Auto)<0.03 k/uL<0.10[facility] SystemNucleated RBC Auto (Bld) [#/Vol]on 67-86-8828Ukbbocxwy RBC (Bld) [#/Vol]10*3/uL<0.01 [facility] SystemNucleated erythrocytes [Presence] in Blood by Automated counton 19-04-1922Onslzxgsd RBC Auto Ql (Bld)0.0 /100{WBC}[facility] SystemPlatelet mean volume Auto (Bld) [Entitic vol]on 25-49-1381Ybnzmfae mean volume (Bld) [Entitic vol]8.2 fL9.0-12.7FOhio State University Wexner Medical CenterPlatelets Auto (Bld) [#/Vol]on 55-40-2907Wglclrvmn (Bld) [#/Vol]453 10*3/eC633-512ZmhfghddwOhio State Health SystemProtein [Mass/volume] in Serum or Plasmaon 41-15-1126Mchcnhz [Mass/Vol]6.6 g/dL6.3-8.0[facility] SystemRBC Auto (Bld) [#/Vol]on 91-27-6872GZK (Bld) [#/Vol]4.36 10*6/uL3.90-5.20OhioHealtherum or plasma anion gap determinationon 73-37-6211Rcqmr gap [Moles/Vol]10 mmol/L9-18FOhio State University Wexner Medical CenterNo Panel Informationon 77-01-0753Lkxha Fquokmglycxb218 ug/g<50 OhioHealthtool Calprotectin CommentElevatedNormal [facility] SystemComment on above:On December 05, 2022, [facility] [employer] implemented a new fecal calprotectin method, the [employer] Calprotectin assay. For assistance with interpretation of results in patients undergoing serial monitoring, contact Client Services at [phone] or [phone] to discuss options, preferably within 7 days of issuing this report.Interpretation:<50.0 ug/g: Mcldyy85.0 ug/g - 120.0 ug/g: Borderline elevated. Re-evaluation in 4-6 weeks is recommended if clinically indicated.>120.0 ug/g: ElevatedLaboratory - Hematology and Cell countson 79-96-6238FkN4d (Bld) [Mass fraction]6.6 %[facility] SystemNo Panel Informationon 81-04-9376Gndanuy Acruoro016AmxcqefdjOhio State Health SystemCalcium [Mass/volume] in Serum or PlasmaOrdered By: Renaldo Barton on 32-07-3557Bpkayqf [Mass/Vol]9.6 mg/dL8.6-10.3FOhio State University Wexner Medical Center Carbon dioxide, total [Moles/volume] in Serum or PlasmaOrdered By: Renaldo Barton on 77-98-6804TJ3 [Moles/Vol]28.5 mmol/L21.0-31.0[facility] SystemChloride [Moles/volume] in Serum or PlasmaOrdered By: Renaldo Barton on 16-27-1896Puyuzpdt [Moles/Vol]93 mmol/N43-376BmkegekqxOhio State Health System Creatinine [Mass/volume] in Serum or PlasmaOrdered By: Renaldo Barton on 94-66-4980Fdlwemjpct [Mass/Vol]0.73 mg/dL0.60-1.20[facility] SystemGlucose [Mass/volume] in Serum or PlasmaOrdered By: Renaldo Barton on 53-97-2429Vbndjsq [Mass/Vol]122 mg/zB08-846YsqocvuirOhio State Health System Comment on above:ADA recommended reference rangeRandom Glucose Reference Range is dependent on time and content of last meal. Glucose of more than 200 mg/dL in a nonstressed, ambulatory subject supports the diagnosisof Diabetes Mellitus. Magnesium [Mass/volume] in Serum or PlasmaOrdered By: Renaldo Barton on 33-52-1143Hkotfwglb [Mass/Vol]1.4 mg/dL1.9-2.7FOhio State University Wexner Medical Center No Panel InformationOrdered By: Renaldo Barton on 82-49-9764Aszomvken GFR (CKD-EPI)> 60.0 mL/MinOhio State Health SystemPharmacy Creatinine Clearance (ChemN/[facility], IncPotassium [Moles/volume] in Serum or PlasmaOrdered By: Renaldo Barton on 94-33-0539Hhsubukmk [Moles/Vol]4.5 mmol/L3.5-5.1FUK Healthcareerum or plasma anion gap determinationOrdered By: Renaldo Barton on 09-52-4435Spzdx gap [Moles/Vol]11.0 mmol/L6.0-15.0OhioHealthodium [Moles/volume] in Serum or PlasmaOrdered By: Renaldo Barton on 88-40-0368Psocaf [Moles/Vol]128 mmol/L 136-145[facility] SystemUrea nitrogen [Mass/volume] in Serum or PlasmaOrdered By: Renaldo Barton on 92-63-7738Gwim nitrogen [Mass/Vol]9 mg/dL7 [facility] SystemGlucose - FINGER STICKon 01-93-3240Nqpligr [Mass/Vol]161 mg/dLNokindred hospital [employer] Other Alanine aminotransferase [Enzymatic activity/volume] in Serum or PlasmaOrdered By: Renaldo Barton on 74-81-3245YCF [Catalytic activity/Vol]14 U/L7-52[facility] SystemAlbumin [Mass/volume] in Serum or Plasma by Bromocresol green (BCG) dye binding methoOrdered By: Renaldo Barton on 23-42-0768Dehiffq BCG dye [Mass/Vol]3.8 g/dL3.5-5.7FOhio State University Wexner Medical CenterAlkaline phosphatase [Enzymatic activity/volume] in Serum or PlasmaOrdered By: Renaldo Barton on 29-57-9632PPX [Catalytic activity/Vol]61 U/L 34-104Ohio [facility] Health SystemAspartate aminotransferase [Enzymatic activity/volume] in Serum or PlasmaOrdered By: Renaldo Barton on 87-62-7545MEB [Catalytic activity/Vol]18 U/V29-69IteutcghmOhio State Health System Bilirubin.total [Mass/volume] in Serum or PlasmaOrdered By: Renaldo Barton on 79-76-9351Daodxtmhq [Mass/Vol]0.4 mg/dL0.3-1.0[facility] Calcium [Mass/volume] in Serum or PlasmaOrdered By: Renaldo Barton on 05-11-2023 Calcium [Mass/Vol]9.2 mg/dL8.6-10.3FOhio State University Wexner Medical CenterCarbon dioxide, total [Moles/volume] in Serum or PlasmaOrdered By: Renaldo Barton on 13-26-8861NS1 [Moles/Vol]29.8 mmol/L21.0-31.0[facility] Chloride [Moles/volume] in Serum or PlasmaOrdered By: Renaldo Barton 39-74-8127Ztovxwvj [Moles/Vol]94 mmol/T31-210AanklwxkdOhio State Health System Creatinine [Mass/volume] in Serum or PlasmaOrdered By: Renaldo Barton on 23-07-8455Wburygfsjq [Mass/Vol]0.71 mg/dL0.60-1.20[facility] SystemErythrocyte distribution width Auto (RBC) [Ratio]Ordered By: Renaldo Barton on 08-76-3903Rwuyzlvzwoo distribution width (RBC) [Ratio]14.6 %11.9-15.3 [facility] Health SystemGlobulin Calc (S) [Mass/Vol]Ordered By: Renaldo Barton on 75-43-6003Vneyddqt (S) [Mass/Vol]2.7 g/dLOhio State Health SystemGlucose [Mass/volume] in Serum or PlasmaOrdered By: Renaldo Barton on 37-62-8364Ddfvgjn [Mass/Vol]110 mg/cS90-418LljhwmfstOhio State Health System Comment on above:ADA recommended reference rangeRandom Glucose Reference Range is dependent on time and content of last meal. Glucose of more than 200 mg/dL in a nonstressed, ambulatory subject supports the diagnosisof Diabetes Mellitus. Hematocrit Auto (Bld) [Volume fraction]Ordered By: Renaldo Barton on 05-11-2023 Hematocrit (Bld) [Volume fraction]34.6 %34.0-46.4FOhio State University Wexner Medical CenterHemoglobin [Mass/volume] in BloodOrdered By: Renaldo Barton on 05-11-2023 Hemoglobin (Bld) [Mass/Vol]11.6 g/dL11.8-15.4FOhio State University Wexner Medical Center Leukocytes [#/volume] corrected for nucleated erythrocytes in Blood by Automated counOrdered By: Renaldo Barton on 89-64-8595GHB corrected for nucl RBC Auto (Bld) [#/Vol]7.7 10*3/uL3.8-11.6FMercy Health Anderson Hospital Auto (RBC) [Entitic mass]Ordered By: Renaldo Barton on 90-04-1548MLX (RBC) [Entitic mass] 29.4 pg24.7-34.3FOhioHealthHC Auto (RBC) [Mass/Vol] Ordered By: Renaldo Barton on 98-15-5063JDWA (RBC) [Mass/Vol]33.5 g/dL32.0-35.0 [facility] SystemMCV Auto (RBC) [Entitic vol]Ordered By: Renaldo Barton on 23-65-2611ORB (RBC) [Entitic vol]87.8 tV22-927YbprgzddyOhio State Health SystemNo Panel InformationOrdered By: Renaldo Barton on 05-11-2023 Estimated GFR (CKD-EPI)> 60.0 mL/MinOhio State Health SystemPharmacy Creatinine Clearance (ChemN/AFOhio State University Wexner Medical CenterPlatelet mean volume Auto (Bld) [Entitic vol]Ordered By: Renaldo Barton on 79-71-5546Xawqtfpi mean volume (Bld) [Entitic vol]6.6 fL6.3-10.7FOhio State University Wexner Medical Center Platelets Auto (Bld) [#/Vol]Ordered By: Renaldo Barton on 52-68-1344Kojxwhdib (Bld) [#/Vol]570 10*3/tQ792-186BxdqrahxfOhio State Health SystemPotassium [Moles/volume] in Serum or PlasmaOrdered By: Renaldo Barton on 05-11-2023 Potassium [Moles/Vol]3.6 mmol/L3.5-5.1FOhio State University Wexner Medical CenterProtein [Mass/volume] in Serum or PlasmaOrdered By: Renaldo Barton on 45-44-8289Vixkdqz [Mass/Vol]6.5 g/dL6.4-8.9[facility] Health SystemRBC Auto (Bld) [#/Vol] Ordered By: Renaldo Barton on 78-38-8298CTJ (Bld) [#/Vol]3.94 10*6/uL3.60-5.00 OhioHealtherum or plasma albumin/globulin mass ratio Ordered By: Renaldo Barton on 59-73-1658Lmmiaal/Globulin [Mass ratio]1.4 {ratio} OhioHealtherum or plasma anion gap determinationOrdered By: Renaldo Barton on 07-47-4670Jalyq gap [Moles/Vol]10.8 mmol/L6.0-15.0OhioHealthodium [Moles/volume] in Serum or PlasmaOrdered By: Renaldo Barton on 39-96-8625Mbbwkk [Moles/Vol]131 mmol/Z436-284DbshnvxcuOhio State Health SystemThyrotropin [Units/volume] in Serum or PlasmaOrdered By: Renaldo Barton on 00-55-6985JZO Qn0.14 m[IU]/L0.45-5.33[facility] Thyroxine (T4) free [Mass/volume] in Serum or PlasmaOrdered By: Renaldo Barton on 26-41-6424Bnvy T4 [Mass/Vol]1.36 ng/dL0.61-1.12[facility] SystemUrea nitrogen [Mass/volume] in Serum or PlasmaOrdered By: Renaldo Barton on 03-37-8787Fqav nitrogen [Mass/Vol]11 mg/dL7-25[facility] Vitamin D+Metabolites [Mass/volume] in Serum or PlasmaOrdered By: Renaldo Barton on 01-55-7383Tlcnddw D+Metabolites [Mass/Vol]17.0 ng/tV34-738MtgshpjivOhio State Health SystemComment on above:VITAMIN D STATUS 25(OH)VITAMIN D RANGE (ng/mL) Deficient <20 Insufficient 20 to <54Dyhamnqief71 to 100Reference: Marko MF,Feliciano SIERRA, Dexter GREEN, et al. Evaluation,treatment, and prevention of vitamin D deficiency; an Endocrine Society clinical practice guideline. JCEM. 2010; 96(7):1911-30.CBC W Auto Differential panel (Bld)on 04-19-2023 Basophils (Bld) [#/Vol]0.09 10*3/uL<0.11 k/uLUniversity Hospitals Lake West Medical CenterBasophils/100 WBC (Bld)1.2 %[facility] CenterDifferential cell count method Nom (Bld)AutoCleveland ClinicEosinophils (Bld) [#/Vol]0.31 10*3/uL<0.46 k/uLUniversity Hospitals Lake West Medical Center Eosinophils/100 WBC (Bld)4.2 %[facility] CenterErythrocyte distribution width (RBC) [Ratio]14.8 %11.5 - 15.0 %[facility] CenterHematocrit (Bld) [Volume fraction]36.2 %36.0 - 46.0 %[facility] CenterHemoglobin (Bld) [Mass/Vol]12.2 g/dL 11.5 - 15.5 g/dLUniversity Hospitals Lake West Medical CenterImmature granulocytes (Bld) [#/Vol]<0.10 k/uL [facility] CenterImmature granulocytes/100 WBC (Bld)0.3 %[facility] Lymphocytes (Bld) [#/Vol]2.89 10*3/uL1.00 - 4.00 k/uLUniversity Hospitals Lake West Medical Center Lymphocytes/100 WBC (Bld)39.2 %[facility] HospitalH (RBC) [Entitic mass]28.7 pg 26.0 - 34.[address] James Hospital And ClinicMCHC (RBC) [Mass/Vol]33.7 g/dL30.5 - 36.0 g/dL [facility] CenterMCV (RBC) [Entitic vol]85.2 fL80.0 - 100.0 fLClevelformerly [facility] Monocytes (Bld) [#/Vol]0.91 10*3/uLHigh<0.87 k/uLUniversity Hospitals Lake West Medical CenterMonocytes/100 WBC (Bld)12.3 %[facility] CenterNeutrophils (Bld) [#/Vol]3.15 10*3/uL1.45 - 7.50 k/uLUniversity Hospitals Lake West Medical CenterNeutrophils/100 WBC (Bld)42.8 %[facility] CenterNucleated RBC (Bld) [#/Vol]<0.01 k/uLUniversity Hospitals Lake West Medical CenterNucleated RBC/100 WBC (Bld) [Ratio]0.0 /100 WBCUniversity Hospitals Lake West Medical CenterPlatelet mean volume (Bld) [Entitic vol]8.4 fLLow9.0 - 12.7 fLClevelElyria Memorial HospitalPlatelets (Bld) [#/Vol]566 10*3/pVKmpd918 - 400 k/uL [facility] CenterRBC (Bld) [#/Vol]4.25 10*6/uL3.90 - 5.20 m/uLUniversity Hospitals Lake West Medical CenterWBC (Bld) [#/Vol]7.37 10*3/uL3.70 - 11.00 k/uLUniversity Hospitals Lake West Medical CenterComprehensive metabolic 2000 panelon 86-07-3403Qeibppa [Mass/Vol]4.1 g/dL3.9 - 4.9 g/dL [facility] HospitalP [Catalytic activity/Vol]69 U/L34 - 123 U/LCleveland [address] [facility] ALT [Catalytic activity/Vol]19 U/L7 - 38 U/LCleveland ClinicAnion gap [Moles/Vol]11 mmol/L9 - 18 mmol/LCleveland ClinicAST [Catalytic activity/Vol]21 U/L13 - 35 U/LCleveland ClinicBilirubin [Mass/Vol]0.3 mg/dL0.2 - 1.3 mg/dL [facility] CenterCalcium [Mass/Vol]9.5 mg/dL8.5 - 10.2 mg/dLUniversity Hospitals Lake West [facility] Center Chloride [Moles/Vol]86 mmol/LLow97 - 105 mmol/LCleveland ClinicCO2 [Moles/Vol]26 mmol/L22 - 30 mmol/LCleveland ClinicCreatinine [Mass/Vol]0.62 mg/dL0.58 - 0.96 mg/dLUniversity Hospitals Lake West Medical CenterEstimated Glomerular Filtration Yakb888 mL/min/1.73m>=60 mL/min/1.73mCleveland ClinicGlucose [Mass/Vol]87 mg/dL74 - 99 mg/dLUniversity Hospitals Lake West Medical CenterPotassium [Moles/Vol]3.4 mmol/LLow3.7 - 5.1 mmol/LCleveland ClinicProtein [Mass/Vol]7.0 g/dL6.3 - 8.0 g/dLDrakesville ClinicSodium [Moles/Vol]123 mmol/LLow 136 - 144 mmol/LCleveland [address] [facility] Hospital And ClinicUrea nitrogen [Mass/Vol]9 mg/dL7 - 21 mg/dL [facility] CenterLaboratory - Chemistry and Chemistry - challengeon 53-03-4257FOL [Mass/Vol]0.7 mg/dL<0.9 mg/dLUniversity Hospitals Lake West Medical CenterGLUCOSE, BLOOD (POC)on 03-27-2023 Glucose [Mass/Vol]83 mg/dL74 - 99 mg/dLUniversity Hospitals Lake West Medical CenterGlucose [Mass/Vol]94 mg/dL74 - 99 mg/dLUniversity Hospitals Lake West Medical CenterPOUCHOSCOPYon 85-31-0213Ihnqzkmxp [facility] Alanine aminotransferase [Enzymatic activity/volume] in Serum or PlasmaOrdered By: Alethea Vickers on 67-63-6468HWI [Catalytic activity/Vol]13 U/L7-52[facility] SystemAlbumin [Mass/volume] in Serum or Plasma by Bromocresol green (BCG) dye binding methoOrdered By: Alethea Vickers on 81-02-1257Grbtkub BCG dye [Mass/Vol]3.8 g/dL3.5-5.7FOhio State University Wexner Medical CenterAlkaline phosphatase [Enzymatic activity/volume] in Serum or PlasmaOrdered By: Alethea Vickers on 75-26-1088EBE [Catalytic activity/Vol]59 U/Q50-721FxlcldzygOhio State Health SystemAspartate aminotransferase [Enzymatic activity/volume] in Serum or PlasmaOrdered By: Alethea Vickers on 82-69-9991MVY [Catalytic activity/Vol]16 U/L 13-39[facility] Health SystemBasophils Auto (Bld) [#/Vol]Ordered By: Alethea Vickers on 18-99-7272Eygjatxtm (Bld) [#/Vol]0.1 10*3/uL0.0-0.2FOhio State University Wexner Medical CenterBasophils/100 WBC Auto (Bld)Ordered By: Alethea Vickers on 05-87-0436Qwlcrnost/100 WBC (Bld)1.4 %.[facility] Bilirubin.total [Mass/volume] in Serum or PlasmaOrdered By: Alethea Vickers on 41-37-2925Qzpedeklc [Mass/Vol]0.4 mg/dL0.3-1.0[facility] Calcium [Mass/volume] in Serum or PlasmaOrdered By: Alethea Vickers on 03-16-2023 Calcium [Mass/Vol]9.3 mg/dL8.6-10.3FOhio State University Wexner Medical CenterCarbon dioxide, total [Moles/volume] in Serum or PlasmaOrdered By: Alethea Vickers on 28-29-1957IE4 [Moles/Vol]30.1 mmol/L21.0-31.0[facility] Chloride [Moles/volume] in Serum or PlasmaOrdered By: Alethea Vickers on 26-77-5060Vzhedwil [Moles/Vol]95 mmol/R94-649XqzpbxdgdOhio State Health System Creatinine [Mass/volume] in Serum or PlasmaOrdered By: Alethea Vickers on 39-74-3843Rpwveiukon [Mass/Vol]0.63 mg/dL0.60-1.20[facility] SystemEosinophils Auto (Bld) [#/Vol]Ordered By: Alethea Vickers on 03-16-2023 Eosinophils (Bld) [#/Vol]0.4 10*3/uL0.0-0.45[facility] Eosinophils/100 WBC Auto (Bld)Ordered By: Alethea Vickers on 03-16-2023 Eosinophils/100 WBC (Bld)5.4 %.[facility] SystemErythrocyte distribution width Auto (RBC) [Ratio]Ordered By: Alethea Vickers on 03-16-2023 Erythrocyte distribution width (RBC) [Ratio]15.5 %11.9-15.3FOhio State University Wexner Medical CenterGlobulin Calc (S) [Mass/Vol]Ordered By: Alethea Vickers on 37-04-0271Ipzrsdjt (S) [Mass/Vol]2.9 g/dLOhio State Health System Glucose [Mass/volume] in Serum or PlasmaOrdered By: Alethea Vickers on 03-16-2023 Glucose [Mass/Vol]106 mg/dI34-907XalxrhfgkOhio State Health SystemComment on above:ADA recommended reference rangeRandom Glucose Reference Range is dependent on time and content of last meal. Glucose of more than 200 mg/dL in a nonstressed, ambulatory subject supports the diagnosisof Diabetes Mellitus. Hematocrit Auto (Bld) [Volume fraction]Ordered By: Alethea Vickers on 03-16-2023 Hematocrit (Bld) [Volume fraction]34.8 %34.0-46.4FOhio State University Wexner Medical CenterHemoglobin [Mass/volume] in BloodOrdered By: Alethea Vickers on 03-16-2023 Hemoglobin (Bld) [Mass/Vol]11.7 g/dL11.8-15.4FOhio State University Wexner Medical Center Leukocytes [#/volume] corrected for nucleated erythrocytes in Blood by Automated counOrdered By: Alethea Vickers on 82-30-1203GZG corrected for nucl RBC Auto (Bld) [#/Vol]7.9 10*3/uL3.8-11.6FOhio State University Wexner Medical CenterLymphocytes Auto (Bld) [#/Vol]Ordered By: Alethea Vickers on 54-44-5245Anrkfrmmhnu (Bld) [#/Vol]3.2 10*3/uL1.00-4.8[facility] Health SystemLymphocytes/100 WBC Auto (Bld)Ordered By: Alethea Vickers on 84-21-5386Sfnkbzshdze/100 WBC (Bld)40.1 %.[facility] Auto (RBC) [Entitic mass]Ordered By: Alethea Vickers on 75-77-7870TTK (RBC) [Entitic mass]29.0 pg24.7-34.3[facility] CenterMCHC Auto (RBC) [Mass/Vol]Ordered By: Alethea Vickers on 31-86-8707NSIB (RBC) [Mass/Vol]33.7 g/dL32.0-35.0[facility] Health SystemMCV Auto (RBC) [Entitic vol]Ordered By: Alethea Vickers on 83-37-5947RYV (RBC) [Entitic vol]86.1 sT01-420WkodqzjhsOhio State Health SystemMonocytes Auto (Bld) [#/Vol]Ordered By: Alethea Vickers on 85-63-9166Chmksezrw (Bld) [#/Vol]0.6 10*3/uL0.0-0.8[facility] SystemMonocytes/100 WBC Auto (Bld) Ordered By: Alethea Vickers on 98-79-9390Gnfujbrpc/100 WBC (Bld)8.2 %.[facility] Health SystemNeutrophils Auto (Bld) [#/Vol]Ordered By: Alethea Vickers on 14-52-6956Gsnwitaemwk (Bld) [#/Vol]3.5 10*3/uL1.8-7.7FOhio State University Wexner Medical CenterNeutrophils/100 WBC Auto (Bld)Ordered By: Alethea Vickers on 39-24-3494Poyruksqijj/100 WBC (Bld)44.9 %.[facility] SystemNo Panel InformationOrdered By: Alethea Vickers on 37-25-4962Rzrvlnwbj GFR (CKD-EPI) > 60.0 mL/MinOhio State Health SystemPharmacy Creatinine Clearance (ChemN/AFOhio State University Wexner Medical CenterNucleated erythrocytes [Presence] in Blood by Automated countOrdered By: Alethea Vickers on 03-04-5423Scglwgoru RBC Auto Ql (Bld)0.2 /100{WBC}0-0.5FOhio State University Wexner Medical CenterPlatelet mean volume Auto (Bld) [Entitic vol]Ordered By: Alethea Vickers on 52-86-9829Uxvvvdfd mean volume (Bld) [Entitic vol]6.6 fL6.3-10.7FOhio State University Wexner Medical Center Platelets Auto (Bld) [#/Vol]Ordered By: Alethea Vickers on 70-02-0751Udpnjepan (Bld) [#/Vol]602 10*3/eQ112-534GhyshspifOhio State Health SystemPotassium [Moles/volume] in Serum or PlasmaOrdered By: Alethea Vickers on 03-16-2023 Potassium [Moles/Vol]3.4 mmol/L3.5-5.1FOhio State University Wexner Medical CenterProtein [Mass/volume] in Serum or PlasmaOrdered By: Alethea Vickers on 18-88-8133Nrzsvet [Mass/Vol]6.7 g/dL6.4-8.9[facility] Health SystemRBC Auto (Bld) [#/Vol] Ordered By: Alethea Vickers on 93-31-3263TJF (Bld) [#/Vol]4.04 10*6/uL3.60-5.00 OhioHealtherum or plasma albumin/globulin mass ratio Ordered By: Alethea Vickers on 31-02-8364Sydyxvr/Globulin [Mass ratio]1.3 {ratio} OhioHealtherum or plasma anion gap determinationOrdered By: Alethea Vickers on 65-26-6555Pptgf gap [Moles/Vol]10.3 mmol/L6.0-15.0 OhioHealthodium [Moles/volume] in Serum or PlasmaOrdered By: Alethea Vickers on 69-74-5231Jyaqwx [Moles/Vol]132 mmol/A661-030PqjgmtsvpOhio State Health SystemUrea nitrogen [Mass/volume] in Serum or PlasmaOrdered By: Alethea Vickers on 12-60-9766Uoju nitrogen [Mass/Vol]10 mg/dL7-25Ohio State Health SystemWBC Auto (Bld) [#/Vol]Ordered By: Alethea Vickers on 25-57-6543PPO (Bld) [#/Vol]7.9 10*3/uL3.8-11.6FOhio State University Wexner Medical Center MRI PANC/ROSE MARIE WO/W IVCONon 31-49-5532Yhghdysds ClinicCreatinine [Mass/volume] in UrineOrdered By: Ludy Arnett on 70-42-1320Vjwrfcnjcq (U) [Mass/Vol]72.0 mg/dL 11.0-20.0[facility] Health SystemMicroalbumin [Mass/volume] in Urine Ordered By: Ludy Arnett on 92-10-6249Ucagxak DL <= 20 mg/L (U) [Mass/Vol]mg/dL 0.0-1.8[facility] Health SystemUrine microalbumin/creatinine mass ratio Ordered By: Tondra Mapus on 04-35-0867Jcqgerl/Creatinine DL <= 20 mg/L (U) [Mass ratio]TNPOhio State Health SystemComment on above:Test not performed Alanine aminotransferase [Enzymatic activity/volume] in Serum or PlasmaOrdered By: Ludy Arnett on 61-34-3967ENZ [Catalytic activity/Vol]15 U/L7-52[facility] Health SystemAlbumin [Mass/volume] in Serum or Plasma by Bromocresol green (BCG) dye binding methoOrdered By: Kathya Melquiades on 18-65-9447Rfmvmyo BCG dye [Mass/Vol]3.9 g/dL3.5-5.7FOhio State University Wexner Medical CenterAlkaline phosphatase [Enzymatic activity/volume] in Serum or PlasmaOrdered By: Tona Verous on 03-19-5185OHU [Catalytic activity/Vol]58 U/P32-006OxpmazyldOhio State Health SystemAspartate aminotransferase [Enzymatic activity/volume] in Serum or PlasmaOrdered By: Tona Mapus on 76-75-9271RKP [Catalytic activity/Vol]16 U/L 13-39[facility] SystemBilirubin.total [Mass/volume] in Serum or PlasmaOrdered By: Tona Mapus on 70-02-3996Upnkyrgck [Mass/Vol]0.5 mg/dL0.3-1.0 [facility] SystemCalcium [Mass/volume] in Serum or PlasmaOrdered By: Tondra Mapus on 57-21-2502Riiwkls [Mass/Vol]9.2 mg/dL8.6-10.3FOhio State University Wexner Medical CenterCarbon dioxide, total [Moles/volume] in Serum or Plasma Ordered By: Kathya Verous on 89-93-3222KA7 [Moles/Vol]27.5 mmol/L21.0-31.0 [facility] SystemChloride [Moles/volume] in Serum or Plasma Ordered By: Ludy Arnett on 79-19-2763Eyhswkha [Moles/Vol]93 mmol/L98-107 [facility] SystemCholesterol [Mass/volume] in Serum or Plasma Ordered By: Ludy Arnett on 29-36-8413Dshthygzzwe [Mass/Vol]168 mg/xE006-790 [facility] SystemComment on above:Chol less than 200 mg/dl low riskChol 201-239 mg/dl borderline riskChol 240 mg/dl and greater high risk Cholesterol in LDL Calc [Mass/Vol]Ordered By: Ludy Arntet on 11-21-2022 Cholesterol in LDL [Mass/Vol]96 mg/dL0-100[facility] Comment on above:LDL ATP III CLASSIFICATIONLDL less than 100 mg/dL OptimalLDL 100-129 mg/dL Near or above lcxdsngKEV715-577 mg/dL Borderline highLDL 160-189 mg/dL HighLDL greater than 189 mg/dL Very highCholesterol in VLDL Calc [Mass/Vol]Ordered By: Ludy Arnett on 60-12-4036Irulfswyjfp in VLDL [Mass/Vol]20 mg/dLOhio State Health SystemCreatinine [Mass/volume] in Serum or PlasmaOrdered By: Ludy Arnett on 36-09-8710Mtaeqnxyfn [Mass/Vol]0.71 mg/dL 0.60-1.20[facility] Health SystemGlobulin Calc (S) [Mass/Vol]Ordered By: Ludy Arnett on 08-59-4384Ttfktvfi (S) [Mass/Vol]2.9 g/dLOhio State Health SystemGlucose [Mass/volume] in Serum or PlasmaOrdered By: Ludy Arnett on 11-81-8984Bgikser [Mass/Vol]130 mg/cN82-002QjimunbuoOhio State Health System Comment on above:ADA recommended reference rangeRandom Glucose Reference Range is dependent on time and content of last meal. Glucose of more than 200 mg/dL in a nonstressed, ambulatory subject supports the diagnosisof Diabetes Mellitus.No Panel InformationOrdered By: Ludy Arnett on 85-80-9659Q-Peptide4.1 ng/mL 1.1-4.4FOhio State University Wexner Medical CenterComment on above:C-Peptide reference interval is for fasting patients.Performed at: - [id number], [place] [id number] Director: Sherif Mccord PhD, Phone: [phone] Estimated GFR (CKD-EPI)> 60.0 mL/MinOhio State Health SystemPharmacy Creatinine Clearance (ChemN/AFOhio State University Wexner Medical CenterPotassium [Moles/volume] in Serum or PlasmaOrdered By: Tondra Mapus on [id number] [Moles/Vol]3.5 mmol/L3.5-5.1FOhio State University Wexner Medical CenterProtein [Mass/volume] in Serum or PlasmaOrdered By: Tondra Mapus on [id number] [Mass/Vol]6.8 g/dL6.4-8.9OhioHealtherum or plasma albumin/globulin mass ratioOrdered By: Tondra Mapus on 11-21-2022 Albumin/Globulin [Mass ratio]1.3 {ratio}OhioHealtherum or plasma anion gap determinationOrdered By: Tondra Mapus on [id number] gap [Moles/Vol]14.0 mmol/L6.0-15.0OhioHealtherum or plasma high density lipoprotein (HDL) cholesterol measurementOrdered By: Tondra Mapus on 76-26-6585Kukqtkafavg in HDL [Mass/Vol]52 mg/mQ65-45KcqgkawpkOhio State Health SystemComment on above:HDL CHOL ATP-III CLASSIFICATION Cardiovascular RiskHDL > or equal to 60 mg/dL LOWHDL < 40 mg/dL HIGHSerum or plasma total cholesterol/high density lipoprotein (HDL) cholesterol mass ratOrdered By: Tondra Mapus on 29-60-9343Jnpmdvpvpsh.total/Cholesterol in HDL [Mass ratio]3.2 {ratio}<5.0OhioHealthodium [Moles/volume] in Serum or PlasmaOrdered By: Tondra Mapus on 71-80-6050Icoamc [Moles/Vol]131 mmol/I484-257 [facility] Health SystemTriglyceride [Mass/volume] in Serum or Plasma Ordered By: Ludy Arnett on 42-56-1266Rslitedhsnjo [Mass/Vol]102 mg/dL0-149 [facility] SystemComment on above:TRIG ATP III CLASSIFICATIONTRIG less than 150 mg/dL NormalTRIG 150-199 mg/dL Borderline highTRIG 200-500 mg/dL High TRIG greater than 500 mg/dL Very highStandard traceable to the Center for Disease Conrtrol and Prevention (CDC) test method. Urea nitrogen [Mass/volume] in Serum or PlasmaOrdered By: Ludy Arnett on 60-85-0378Kqgz nitrogen [Mass/Vol]11 mg/dL7-25[facility] Basophils Auto (Bld) [#/Vol]Ordered By: Gavino Pantoja on 60-27-8905Fflexxwfd (Bld) [#/Vol]0.1 10*3/uL0.0-0.2FOhio State University Wexner Medical CenterBasophils/100 WBC Auto (Bld)Ordered By: Gavino Pantoja on 27-71-1540Dsurdyuwz/100 WBC (Bld)0.6 % .[facility] Health SystemC reactive protein [Mass/volume] in Serum or PlasmaOrdered By: Gavino Pantoja on 12-95-7687HOI [Mass/Vol]8.3 mg/dL0.0-0.5 [facility] SystemCalcium [Mass/volume] in Serum or PlasmaOrdered By: Gavino Pantoja on 53-57-0183Spjptvh [Mass/Vol]8.1 mg/dL8.6-10.3FOhio State University Wexner Medical CenterCarbon dioxide, total [Moles/volume] in Serum or Plasma Ordered By: Gavino Pantoja on 51-51-4775NF6 [Moles/Vol]25.8 mmol/L21.0-31.0 [facility] SystemChloride [Moles/volume] in Serum or Plasma Ordered By: Gavino Pantoja on 38-15-0084Vijdinzz [Moles/Vol]99 mmol/L98-107 [facility] SystemCreatinine [Mass/volume] in Serum or Plasma Ordered By: Gavino Pantoja on 13-20-7015Xmcpiekjaz [Mass/Vol]0.56 mg/dL0.60-1.20 [facility] SystemEosinophils Auto (Bld) [#/Vol]Ordered By: Gavino Pantoja on 18-39-2015Zrjuovuptoj (Bld) [#/Vol]0.1 10*3/uL0.0-0.45[facility] SystemEosinophils/100 WBC Auto (Bld)Ordered By: Gavino Pantoja on 15-39-8345Avytxptjxpj/100 WBC (Bld)1.0 %.[facility] Erythrocyte distribution width Auto (RBC) [Ratio]Ordered By: Gavino Pantoja on 82-69-3329Ulfbniiwaiz distribution width (RBC) [Ratio]15.4 %11.9-15.3FOhio State University Wexner Medical CenterGlucose Glucometer (BldC) [Mass/Vol]Ordered By: Gavino Pantoja on 10-71-6245Lfonqka [Mass/Vol]90 mg/dLOhio State Health System Comment on above:Random Glucose Reference Range is dependent on time and content of last meal. Glucose of more than 200 mg/dL in a nonstressed, ambulatory subject supports the diagnosis of Diabetes Mellitus.Glucose [Mass/volume] in Serum or PlasmaOrdered By: Gavino Pantoja 71-87-5979Mmjikmy [Mass/Vol]86 mg/dL 70-100[facility] SystemComment on above:ADA recommended reference rangeRandom Glucose Reference Range is dependent on time and content of last meal. Glucose of more than 200 mg/dL in a nonstressed, ambulatory subject supports the diagnosisof Diabetes Mellitus.Hematocrit Auto (Bld) [Volume fraction]Ordered By: Gavino Pantoja on 63-01-5548Dxvycbkjzg (Bld) [Volume fraction]28.8 %34.0-46.4FOhio State University Wexner Medical CenterHemoglobin [Mass/volume] in BloodOrdered By: Gavino Pantoja 36-21-7855Vpjzsqekac (Bld) [Mass/Vol]9.4 g/dL11.8-15.4FOhio State University Wexner Medical CenterLeukocytes [#/volume] corrected for nucleated erythrocytes in Blood by Automated coun Ordered By: Gavino Pantoja 27-15-6038SZF corrected for nucl RBC Auto (Bld) [#/Vol]12.9 10*3/uL3.8-11.6FOhio State University Wexner Medical CenterLymphocytes Auto (Bld) [#/Vol]Ordered By: Gavino Kit on 10-57-0249Rczoezmtmhl (Bld) [#/Vol]2.6 10*3/uL1.00-4.8[facility] Health SystemLymphocytes/100 WBC Auto (Bld) Ordered By: Gavino Kit on 97-17-3004Aagzcoibues/100 WBC (Bld)19.7 %.[facility] Health SystemMCH Auto (RBC) [Entitic mass]Ordered By: Gavino Kit on 30-37-6996HYO (RBC) [Entitic mass]27.3 pg24.7-34.3FOhio State University Wexner Medical CenterMCHC Auto (RBC) [Mass/Vol]Ordered By: Gavino Kit on 46-54-8143QUUC (RBC) [Mass/Vol]32.5 g/dL32.0-35.0[facility] SystemMCV Auto (RBC) [Entitic vol]Ordered By: Gavino Kit on 92-15-8424ZTQ (RBC) [Entitic vol]84.1 vU29-038NyarlqyknOhio State Health SystemMonocytes Auto (Bld) [#/Vol]Ordered By: Gavino Kit on 50-48-2717Gizckglpq (Bld) [#/Vol]0.7 10*3/uL0.0-0.8[facility] SystemMonocytes/100 WBC Auto (Bld)Ordered By: Gavino Kit on 97-98-1309Ulqklhxgd/100 WBC (Bld)5.1 %.[facility] Neutrophils Auto (Bld) [#/Vol]Ordered By: Gavino Kit on 78-81-2872Zvwvyzaqymy (Bld) [#/Vol]9.5 10*3/uL1.8-7.7FOhio State University Wexner Medical CenterNeutrophils/100 WBC Auto (Bld)Ordered By: Gavino Kit on 30-35-2179Dcaemnvbjrb/100 WBC (Bld) 73.6 %.[facility] SystemNo Panel InformationOrdered By: Gavino Pantoja on 97-54-8272Tgxzamo Glucose CommentGlu2: cleaned meterOhio State Health SystemEstimated GFR (CKD-EPI)> 60.0 mL/MinOhio State Health SystemPharmacy Creatinine Clearance (Bfrr371.16[facility] Nucleated erythrocytes [Presence] in Blood by Automated countOrdered By: Gavino Pantoja on 97-82-0174Qxvvgqtpp RBC Auto Ql (Bld)0.1 /100{WBC}0-0.5FOhio State University Wexner Medical CenterPlatelet mean volume Auto (Bld) [Entitic vol]Ordered By: Gavino Pantoja on 14-87-1908Qmjzxhln mean volume (Bld) [Entitic vol]7.7 fL6.3-10.7 [facility] SystemPlatelets Auto (Bld) [#/Vol]Ordered By: Gavino Pantoja on 56-79-9851Qxlwoimjc (Bld) [#/Vol]383 10*3/uO702-341VqaavwbdwOhio State Health SystemPotassium [Moles/volume] in Serum or PlasmaOrdered By: Gavino Pantoja on 99-58-6951Xwtdyaeyc [Moles/Vol]3.3 mmol/L3.5-5.1FOhio State University Wexner Medical CenterRBC Auto (Bld) [#/Vol]Ordered By: Gavino Pantoja on 42-35-3320SWS (Bld) [#/Vol]3.43 10*6/uL3.60-5.00OhioHealtherum or plasma anion gap determinationOrdered By: Gavino Pantoja on 52-55-2548Ceaqj gap [Moles/Vol]10.5 mmol/L6.0-15.0OhioHealthodium [Moles/volume] in Serum or PlasmaOrdered By: Gavino Pantoja on 10-14-7492Pmnefm [Moles/Vol]132 mmol/E296-580EunhvlryjOhio State Health SystemUrea nitrogen [Mass/volume] in Serum or PlasmaOrdered By: Gavino Pantoja on 01-32-3680Rfrh nitrogen [Mass/Vol]5 mg/dL7-25[facility] SystemWBC Auto (Bld) [#/Vol]Ordered By: Gavino Pantoja on 56-48-1856XTI (Bld) [#/Vol]12.9 10*3/uL 3.8-11.6FOhio State University Wexner Medical CenterActivated partial thromboplastin time (aPTT) in platelet poor plasma by coagulation aOrdered By: Kamari Galindo on 46-91-8003tNZR Coag (PPP) [Time]29.1 s25.1-36.5FOhio State University Wexner Medical Center Alanine aminotransferase [Enzymatic activity/volume] in Serum or PlasmaOrdered By: Kamari Galindo on 91-37-6173UFM [Catalytic activity/Vol]19 U/L7-52[facility] Health SystemAlbumin [Mass/volume] in Serum or Plasma by Bromocresol green (BCG) dye binding methoOrdered By: Kamari Galindo on 98-49-7618Ksbbnrq BCG dye [Mass/Vol]3.5 g/dL3.5-5.7FOhio State University Wexner Medical CenterAlkaline phosphatase [Enzymatic activity/volume] in Serum or PlasmaOrdered By: Kamari Galindo on 16-73-1522YBL [Catalytic activity/Vol]49 U/D44-131GvajtsdrfOhio State Health SystemAspartate aminotransferase [Enzymatic activity/volume] in Serum or PlasmaOrdered By: Kamari Galindo on 93-19-6863MYM [Catalytic activity/Vol]21 U/L 13-39[facility] SystemAutomated erythrocytes count in urine sediment (number/area)Ordered By: Kamari Galindo on 34-96-5833IJM Auto (Urine sed) [#/Area]1-2 [HPF]0-4FOhio State University Wexner Medical CenterAutomated leukocytes count in urine sediment (number/area)Ordered By: Kamari Galindo on 38-85-0675MPK Auto (Urine sed) [#/Area]5-9 [HPF]0-4FOhio State University Wexner Medical CenterBacterial blood cultureOrdered By: Kamari Galindo on 50-38-6868Ciylwhve identified Cx Nom (Bld)NO GROWTH 5 DAYSOhio State Health SystemBasophils Auto (Bld) [#/Vol]Ordered By: Kamari Galindo on 37-80-6272Zqjvhvxzw (Bld) [#/Vol]0.2 10*3/uL0.0-0.2FOhio State University Wexner Medical CenterBasophils/100 WBC Auto (Bld) Ordered By: Kamari Galindo on 78-76-8498Mjjhduojy/100 WBC (Bld)0.4 %.[facility] SystemBilirubin Auto test strip Ql (U)Ordered By: Kamari Galindo on 61-62-8387Efspfgqjv Ql (U)NegativeNegativeOhio State Health SystemBilirubin.total [Mass/volume] in Serum or PlasmaOrdered By: Kamrai Galindo on 08-86-5947Wskefgiux [Mass/Vol]0.7 mg/dL0.3-1.0[facility] SystemCalcium [Mass/volume] in Serum or PlasmaOrdered By: Kamari Galindo on 20-58-0072Tblxbgi [Mass/Vol]8.4 mg/dL8.6-10.3FOhio State University Wexner Medical Center Carbon dioxide, total [Moles/volume] in Serum or PlasmaOrdered By: Kamari Galindo on 89-88-4602VK7 [Moles/Vol]25.6 mmol/L21.0-31.0[facility] SystemChloride [Moles/volume] in Serum or PlasmaOrdered By: Kamari Galindo on 01-09-1293Hlqdvxqp [Moles/Vol]91 mmol/A38-374QsckjubujOhio State Health SystemCreatinine [Mass/volume] in Serum or PlasmaOrdered By: Kamari Galindo on 73-53-8420Rvwzevbvno [Mass/Vol]0.84 mg/dL0.60-1.20[facility] SystemEosinophils Auto (Bld) [#/Vol]Ordered By: Kamari Galindo on 00-84-9948Zczivrhohim (Bld) [#/Vol]0.0 10*3/uL0.0-0.45[facility] SystemEosinophils/100 WBC Auto (Bld)Ordered By: Kamari Galindo on 10-29-2022 Eosinophils/100 WBC (Bld)0.0 %.[facility] CenterErythrocyte distribution width Auto (RBC) [Ratio]Ordered By: Kamari Galindo on 10-29-2022 Erythrocyte distribution width (RBC) [Ratio]15.4 %11.9-15.3FOhio State University Wexner Medical CenterGlobulin Calc (S) [Mass/Vol]Ordered By: Kamari Galindo on 39-29-5698Gquukyar (S) [Mass/Vol]3.3 g/dLOhio State Health System Glucose [Mass/volume] in Serum or PlasmaOrdered By: Kamari Galindo on 10-29-2022 Glucose [Mass/Vol]131 mg/fO30-210IywwbdwvgOhio State Health SystemComment on above:ADA recommended reference rangeRandom Glucose Reference Range is dependent on time and content of last meal. Glucose of more than 200 mg/dL in a nonstressed, ambulatory subject supports the diagnosisof Diabetes Mellitus. Hematocrit Auto (Bld) [Volume fraction]Ordered By: Kamari Galindo on 10-29-2022 Hematocrit (Bld) [Volume fraction]33.7 %34.0-46.4FOhio State University Wexner Medical CenterHemoglobin [Mass/volume] in BloodOrdered By: Kamari Galindo 10-29-2022 Hemoglobin (Bld) [Mass/Vol]11.1 g/dL11.8-15.4FOhio State University Wexner Medical Center Hypochromia LM Ql (Bld)Ordered By: Kamari Galindo 86-99-3779Cagyyxrcldk Ql (Bld)SlightOhio State Health SystemKetones Auto test strip (U) [Mass/Vol]Ordered By: Kamari Galindo on 65-48-4542Dfppsww (U) [Mass/Vol]Negative NegativeOhio State Health SystemLaboratory - CoagulationOrdered By: Kamari Galindo on 24-41-9977AG Coag (PPP) [Time]16.0 s9.0-12.9[facility] SystemLaboratory - UrinalysisOrdered By: Kamari Galindo on 10-29-2022 Hyaline casts LM Ql (Urine sed)None seen [LPF]0-8[facility] Health SystemLactate [Moles/volume] in Serum or PlasmaOrdered By: Kamari Galindo on 82-79-8221Kfuymyl [Moles/Vol]1.4 mmol/L0.5-2.2FOhio State University Wexner Medical Center Leukocytes [#/volume] corrected for nucleated erythrocytes in Blood by Automated counOrdered By: Kamari Galindo on 33-57-9651YNR corrected for nucl RBC Auto (Bld) [#/Vol]36.9 10*3/uL3.8-11.6FOhio State University Wexner Medical CenterLymphocytes Auto (Bld) [#/Vol]Ordered By: Kamari Galindo on 75-88-2350Qtanxeemrse (Bld) [#/Vol]2.2 10*3/uL1.00-4.8[facility] SystemLymphocytes/100 WBC Auto (Bld)Ordered By: Kamari Galindo on 87-01-7439Prbuvapczhm/100 WBC (Bld)6.1 % .[facility] Auto (RBC) [Entitic mass]Ordered By: Kamari Galindo on 52-09-4003ZGM (RBC) [Entitic mass]27.3 pg24.7-34.3FOhio State University Wexner Medical CenterMCHC Auto (RBC) [Mass/Vol]Ordered By: Kamari Galindo on 49-53-0905FTQF (RBC) [Mass/Vol]33.0 g/dL32.0-35.0[facility] SystemMCV Auto (RBC) [Entitic vol]Ordered By: Kamari Galindo on 64-68-7110SSL (RBC) [Entitic vol]82.7 uZ60-682LtdbqjuqsOhio State Health SystemMonocyte distribution width [Entitic volume] in Blood by AutomatedOrdered By: Kamari Galindo on 86-42-0780Mphsywoq distribution width Auto (Bld) [Entitic vol]30.98 % 0.00-20.00[facility] SystemComment on above:For adults in ED, MDW > 20.0 may be associated with a higher risk of sepsis during the first 12 h rs of hospital admissionMonocytes Auto (Bld) [#/Vol]Ordered By: Kamari Galindo on 41-77-0316Pgddesjny (Bld) [#/Vol]1.2 10*3/uL0.0-0.8[facility] SystemMonocytes/100 WBC Auto (Bld)Ordered By: Kamari Galindo on 10-29-2022 Monocytes/100 WBC (Bld)3.1 %.[facility] Health SystemNeutrophils Auto (Bld) [#/Vol]Ordered By: Kamari Galindo on 01-32-1778Mrftyuiiocy (Bld) [#/Vol] 33.3 10*3/uL1.8-7.7FOhio State University Wexner Medical CenterNeutrophils/100 WBC Auto (Bld)Ordered By: Kamari Galindo on 22-62-5745Xfhwpwubgki/100 WBC (Bld)90.4 %. [facility] SystemNo Panel InformationOrdered By: Kamari Galindo on 45-61-2224Ecxgazhef GFR (CKD-EPI)> 60.0 mL/MinOhio State Health SystemPharmacy Creatinine Clearance (Chem80.01[facility] Nucleated erythrocytes [Presence] in Blood by Automated countOrdered By: Kamari Galindo on 12-61-6118Cuuhjtvrv RBC Auto Ql (Bld)0.0 /100{WBC}0-0.5FOhio State University Wexner Medical CenterPlatelet adequacy [Presence] in Blood by Light microscopy Ordered By: Kamari Galindo on 16-19-7751Kikkuhvfi LM Ql (Bld)IncreasedNormal [facility] SystemPlatelet mean volume Auto (Bld) [Entitic vol] Ordered By: Kamari Galindo on 08-10-9507Wymunhmg mean volume (Bld) [Entitic vol] 6.5 fL6.3-10.7FOhio State University Wexner Medical CenterPlatelet morphology finding [Identifier] in BloodOrdered By: Kamari Galindo on 82-58-9237Ssefrydu morphology finding Nom (Bld)NormalNormMcCullough-Hyde Memorial HospitalPlatelet poor plasma international normalized ratio (INR) by coagulation assay (relatOrdered By: Kamari Galindo on 02-30-4447VDZ Coag (PPP) [Relative time]1.4 {INR}[facility] SystemComment on above:INR Therapeutic Range A) Pre- and Peroperative OAT started two weeks before surgery. NOT HIP SURGERY: 1.5 - 2.5 HIP SURGERY: 2 - 3B) Primary and secondary prevention of venous THROMBOSIS: 2 - 3C) Active venous thrombosis, pulmonary embolismand prevention of recurrent venous thrombosis: 2 - 3D) Prevention of arterial thromboembolismincluding patients with mechanical heart valves: 3 - 4.5Platelets Auto (Bld) [#/Vol] Ordered By: Kamari Galindo on 96-13-9083Frehyreie (Bld) [#/Vol]474 10*3/uL 150-450[facility] SystemPotassium [Moles/volume] in Serum or PlasmaOrdered By: Kamari Galindo on 32-01-4165Aamfubfao [Moles/Vol]3.3 mmol/L 3.5-5.1FOhio State University Wexner Medical CenterProtein Auto test strip (U) [Mass/Vol] Ordered By: Kamari Galindo on 14-17-3795Vxwtxfe (U) [Mass/Vol]NegativeNegative [facility] SystemProtein [Mass/volume] in Serum or PlasmaOrdered By: Kamari Galindo on 63-99-2697Hacdlod [Mass/Vol]6.8 g/dL6.4-8.9[facility] SystemRBC Auto (Bld) [#/Vol]Ordered By: Kamari Galindo on 17-00-7886MMK (Bld) [#/Vol]4.07 10*6/uL3.60-5.00[facility] SystemRBC morphologyOrdered By: Kamari Galindo on 62-74-7187JLA morphology finding Nom (Bld)N/AFUK Healthcareerum or plasma albumin/globulin mass ratioOrdered By: Kamari Galindo on 10-29-2022 Albumin/Globulin [Mass ratio]1.1 {ratio}OhioHealtherum or plasma anion gap determinationOrdered By: Kamari Galindo on 11-60-4292Ilzis gap [Moles/Vol]13.7 mmol/L6.0-15.0OhioHealthodium [Moles/volume] in Serum or PlasmaOrdered By: Kamari Galindo 19-60-2603Hkudzd [Moles/Vol]127 mmol/E637-513JayovpbexOhioHealthquamous epithelial cells detection in urine sediment by light microscopyOrdered By: Kamari Galindo on 08-19-9720Iohwuuhleh cells.squamous LM Ql (Urine sed)3-4 [HPF]0-2FOhio State University Wexner Medical CenterTarget cellsOrdered By: Kamari Galindo on 10-29-2022 Target cells LM Ql (Bld)SlightOhio State Health SystemUrea nitrogen [Mass/volume] in Serum or PlasmaOrdered By: Kamari Galindo on 02-16-8172Ztjj nitrogen [Mass/Vol]14 mg/dL7-25[facility] SystemUrine appearance Ordered By: Kamari Galindo on 86-67-4458Kxehldocog (U)ClearClearFOhio State University Wexner Medical CenterUrine bacteria detection by automated methodOrdered By: Kamari Galindo on 38-39-5513Hepdszbj Auto Ql (U)None seenNone SeenOhio State Health SystemUrine colorOrdered By: Kamari Galindo on 94-37-8296Hovmb (U)YellowYellowOhio State Health SystemUrine culture routineOrdered By: Kamari Galindo on 80-39-5623Iinsiicj identified Cx Nom (U)2 DaysOhio State Health SystemUrine glucose measurement by automated test strip (mass/volume)Ordered By: Kamari Galindo on 43-43-6766Gtvxxkv Auto test strip (U) [Mass/Vol]Normal mg/dLNoCleveland Clinic FoundationUrine hemoglobin detection by automated test stripOrdered By: Kamari Galindo on 10-29-2022 Hemoglobin Auto test strip Ql (U)NegativeNegativeOhio State Health SystemUrine leukocyte esterase detection by automated test stripOrdered By: Kamari Galindo on 58-31-2073Epqrvfimv esterase Auto test strip Ql (U)1+Negative [facility] SystemUrine nitrite detection by automated test strip Ordered By: Kamari Galindo on 88-66-7334Rteaaft Auto test strip Ql (U)Negative NegativeOhio State Health SystemUrobilinogen Auto test strip (U) [Mass/Vol]Ordered By: Kamari Galindo on 83-26-3862Zwnkccmpvoiu (U) [Mass/Vol] Normal mg/dLNoCleveland Clinic FoundationWBC Auto (Bld) [#/Vol]Ordered By: Kamari Galindo on 98-43-6708QSA (Bld) [#/Vol]36.9 10*3/uL3.8-11.6FOhio State University Wexner Medical CenterpH Auto test strip (U)Ordered By: Kamari Galindo on 74-02-8369lY (U)1.005 [pH]1.001-1.030[facility] Health SystempH (U)6.5 [pH]5.0-9.0[facility] SystemXR FOOT ROSE MARIE MIN 3 VIEWSon 10-05-2022 XR FOOT ROSE MARIE MIN 3 VIEWSEXAMINATION: XR ANKLE ROSE MARIE MIN 3 VIEWS, XR FOOT ROSE MARIE MIN 3 VIEWS HISTORY: Bilateral ankle joint and foot pain COMPARISON: XR ankle and foot bilateral 03/24/2021 FINDINGS: RIGHT FINDINGS: BONES: Complete collapse of plantar arch. Multifocal mild degenerative change of the midfoot. No fracture, dislocation, bone lesion. Mild valgus deformity of the ankle joint without appreciable joint space narrowing or irregularity. SOFT TISSUES: No visible soft tissue swelling. OTHER: Negative. LEFT FINDINGS: BONES: Talocalcaneal fusion via 2 lag screws. Asymmetric narrowing of the lateral aspect of the tibiotalar joint. Complete loss of the plantar arch. Stable degenerative changes of the first metatarsophalangeal joint. SOFT TISSUES: No visible soft tissue swelling. OTHER: Negative. IMPRESSION: RIGHT CONCLUSION: Marked pes planus. No acute abnormality or significant degenerative joint disease of the foot or ankle. LEFT CONCLUSION: Marked pes planus. Stable talocalcaneal fusion. Stable mild valgus deviation of the ankle joint with asymmetric joint space narrowing. Electronically authenticated by: GABE PALUMBO Date: 2022-10-05 10:00[facility] Mi[facility]burgCreatinine and Glomerular filtration rate.predicted panel (S/P/Bld)Ordered By: Dedra Mcallister on 18-31-0197Svutjdnbky [Mass/Vol]0.82 mg/dL0.44-1.03[facility] SystemEstimated glomerular filtration rate (GFR) non- AmericanOrdered By: Dedra Mcallister on 68-69-4499VYL/1.73 sq M.predicted among non-blacks MDRD (S/P/Bld) [Vol rate/Area]> 60 mL/Min [facility] SystemNo Panel InformationOrdered By: Dedra Mcallister on 37-56-6055Cogcgyzil GFR ()> 60 mL/MinOhio State Health SystemComment on above:GFR estimated reference range: According to KDOQI guidelines, <60 ml/min/1.73m2 is sufficient todiagnose a patient with chronic kidney disease.Pharmacy Creatinine Clearance (ChemN/[facility] Centererum or plasma anion gap determinationOrdered By: Dedra Mcallister on 59-97-6948Nczxi gap [Moles/Vol]14.9 mmol/L6.0-15.0OhioHealtherum or plasma calcium measurement (mass/volume)Ordered By: Dedra Mcallister on 29-58-4539Ywivioy [Mass/Vol]9.4 mg/dL8.2-10.2FUK Healthcareerum or plasma chloride measurement (moles/volume)Ordered By: Dedra Mcallister on 33-53-6303Khdhaqjo [Moles/Vol]93 mmol/B75-989BkjilezspOhioHealtherum or plasma glucose measurement (mass/volume)Ordered By: Dedra Mcallister on 57-71-5586Wudrerf [Mass/Vol]122 mg/aI63-108HzrxsgnobOhio State Health SystemComment on above:ADA recommended reference rangeRandom Glucose Reference Range is dependent on time and content of last meal. Glucose of more than 200 mg/dL in a nonstressed, ambulatory subject supports the diagnosisof Diabetes Mellitus.Serum or plasma potassium measurement (moles/volume)Ordered By: Dedra Mcallister on 91-17-9822Auddrjcnq [Moles/Vol]3.6 mmol/L3.5-5.1FUK Healthcareerum or plasma sodium measurement (moles/volume)Ordered By: Dedra Mcallister on 67-21-7977Taykdp [Moles/Vol]130 mmol/N810-494OzcahyexjOhioHealtherum or plasma total carbon dioxide measurement (moles/volume)Ordered By: Dedra Mcallister on 55-48-0145BT5 [Moles/Vol]25.7 mmol/L22.0-30.0OhioHealtherum or plasma urea nitrogen measurement (mass/volume)Ordered By: Dedra Mcallister on 08-07-2022 Urea nitrogen [Mass/Vol]9 mg/dL9-23[facility] SystemAlbumin [Mass/volume] in Serum or PlasmaOrdered By: NON STAFF on 65-97-4799Fpfsvuu [Mass/Vol]3.8 g/dL3.2-5.5FOhio State University Wexner Medical CenterBasophils Auto (Bld) [#/Vol]Ordered By: Dedra Mcallister on 80-50-7907Khdnbblze (Bld) [#/Vol]0.1 10*3/uL0.0-0.2FOhio State University Wexner Medical CenterBasophils Auto (Bld) [#/Vol] Ordered By: NON STAFF on 48-44-2479Ornjagjsw (Bld) [#/Vol]0.1 10*3/uL0.0-0.2 [facility] SystemBasophils/100 WBC Auto (Bld)Ordered By: Dedra Mcallister on 20-85-1693Kqefsljal/100 WBC (Bld)1.3 %.[facility] SystemBasophils/100 WBC Auto (Bld)Ordered By: NON STAFF on 08-04-2022 Basophils/100 WBC (Bld)0.8 %.[facility] SystemBilirubin Test strip Ql (U)Ordered By: Dedra Mcallister on 38-04-2305Eczcgppid Ql (U)Negative NegativeOhio State Health SystemBody fluid albumin measurement (mass/volume)Ordered By: Dedra Mcallister on 27-85-6271Abdpsit (Body fld) [Mass/Vol]3.5 g/dL3.2-5.5FOhio State University Wexner Medical CenterC reactive protein [Mass/volume] in Serum or PlasmaOrdered By: NON STAFF on 92-24-4192HLB [Mass/Vol]1.3 mg/dL0.0-1.0[facility] SystemCOVID CepheidOrdered By: Dedra Mcallister on 99-77-8669RFXR-CoV-2 (COVID-19) Ab IA QlPositiveNegative [facility] SystemComment on above:This is a duplicate Cepheid Xpert Xpress CoV-2/Flu/RSV Plus RNA by RT-PCR result to be used for statistical tracking purpose only.SARS-CoV-2 (COVID-19) RNA LENCHO+probe Ql (Unsp spec) OhioHealthARS-CoV-2 (COVID-19) RNA LENCHO+probe Ql (Unsp spec)[facility] SystemCalprotectin [Mass/mass] in StoolOrdered By: Tomasa Wakefield on 36-37-0835Gdvifzglsdna (Stl) [Mass/Mass]See comment. [facility] SystemComment on above:Test not performed. No specimen received.contacted your facility on 43-47-5873Gyjititzsjbrn Interpre tation Follow-Up<16 - 50 ug/g Normal None>50 -120 ug/g Borderline Re-evaluate in 4-6 weeks >120 ug/g Abnormal Repeat as clinically indicatedClostridioides difficile toxin B tcdB gene [Presence] in Stool by LENCHO with probe deteOrdered By: Tomasa Wakefield on 08-04-2022. difficile toxin B tcdB gene LENCHO+probe Ql (Stl)NegativeNegativeOhio State Health SystemComment on above:Testing performed by RT-PCRColor Auto (U)Ordered By: Dedra Mcallister on 79-68-5105Lpwzh (U)YellowYelDetwiler Memorial HospitalCreatinine and Glomerular filtration rate.predicted panel (S/P/Bld)Ordered By: Dedra Mcallister on [id number] [Mass/Vol]0.77 mg/dL0.44-1.03[facility] Health SystemCreatinine and Glomerular filtration rate.predicted panel (S/P/Bld)Ordered By: PITA TRIMBLE on [id number] [Mass/Vol]0.76 mg/dL0.44-1.03[facility] Health SystemCryptosporidium sp Ag [Presence] in Stool by Immunoassay Ordered By: Tomasa Wakefield on 53-59-5533Ybivgsegqhcedgk sp Ag IA Ql (Stl) NegativeNegSelect Medical Specialty Hospital - AkronDetection in stool of any of Campylobacter coli, Campylobacter jejuni, and CampylobacOrdered By: Tomasa Wakefield on 08-04-2022. coli+jejuni+upsaliensis DNA LENCHO+non-probe Ql (Stl)Not detectedNot DetectedOhio State Health SystemDetection in stool of any of Vibrio cholerae, Vibrio parahaemolyticus, and Vibrio vulOrdered By: Tomasa Wakefield on 08-04-2022V. cholerae+parahaemolyticus+vulnificus DNA LENCHO+non-probe Ql (Stl)Not detectedNot DetectedOhio State Health SystemDetection in stool of either or both Clostridium difficile toxin A and B genes by tarOrdered By: Tomasa Wakefield on 08-04-2022. difficile toxin A+B tcdA+tcdB genes LENCHO+non-probe Ql (Stl)Not detectedNot DetectedOhio State Health System Detection in stool of either or both Salmonella enterica and Salmonella bongori DNA bOrdered By: Tomasa Wakefield on 08-04-2022S. enterica+bongori DNA LENCHO+non- probe Ql (Stl)Not detectedNot DetectedOhio State Health SystemDetection in stool of either or both enteroaggregative Escherichia coli Wilber plasmid a Ordered By: Tomasa Wakefield on 08-04-2022E. coli enteroaggregative Wilber plasmid aggR+aatA genes LENCHO+non-probe Ql (Stl)Not detectedNot DetectedOhio State Health SystemEosinophils Auto (Bld) [#/Vol]Ordered By: Dedra Mcallister on 36-22-4322Zcxweecnrhg (Bld) [#/Vol]0.1 10*3/uL0.0-0.45Ohio State Health SystemEosinophils Auto (Bld) [#/Vol]Ordered By: NON STAFF on 08-04-2022 Eosinophils (Bld) [#/Vol]0.1 10*3/uL0.0-0.45[facility] Eosinophils/100 WBC Auto (Bld)Ordered By: Dedra Mcallister on 08-04-2022 Eosinophils/100 WBC (Bld)1.4 %.[facility] SystemEosinophils/100 WBC Auto (Bld)Ordered By: NON STAFF on 50-72-7368Olwmnhlrytl/100 WBC (Bld)1.2 %. [facility] SystemErythrocyte distribution width Auto (RBC) [Ratio]Ordered By: Dedra Mcallister on 13-19-9398Cecihjylaxg distribution width (RBC) [Ratio]14.4 %11.9-15.3FOhio State University Wexner Medical CenterErythrocyte distribution width Auto (RBC) [Ratio]Ordered By: PITA STAFF on 08-04-2022 Erythrocyte distribution width (RBC) [Ratio]15.1 %11.9-15.3FOhio State University Wexner Medical CenterEscherichia coli O157 DNA [Presence] in Stool by LENCHO with non- probe detectionOrdered By: Tomasa Wakefield on 08-04-2022E. coli O157 DNA LENCHO+non-probe Ql (Stl)Not applicableNot DetectedOhio State Health SystemEscherichia coli Stx1 and Stx2 toxin stx1+stx2 genes [Presence] in Stool by LENCHO withOrdered By: Tomasa Wakefield on 08-04-2022. coli stx1+stx2 genes LENCHO+non-probe Ql (Stl)Not detectedNot DetectedOhio State Health System Escherichia coli enteropathogenic eae gene [Presence] in Stool by LENCHO with non-probeOrdered By: Tomasa Wakefield on 08-04-2022. coli enteropathogenic eae gene LENCHO+non-probe Ql (Stl)Not detectedNot DetectedOhio State Health SystemEscherichia coli enterotoxigenic ltA+st1a+st1b genes [Presence] in Stool by LENCHO withOrdered By: Tomasa Wakefield on 08-04-2022E. coli enterotoxigenic ltA+st1a+st1b genes LENCHO+non-probe Ql (Stl)Not detectedNot DetectedOhio State Health SystemEstimated glomerular filtration rate (GFR) non- AmericanOrdered By: Dedra Mcallister on 84-91-4651JNM/1.73 sq M.predicted among non-blacks MDRD (S/P/Bld) [Vol rate/Area]> 60 mL/MinOhio State Health SystemEstimated glomerular filtration rate (GFR) non- AmericanOrdered By: PITA STAFF on 86-04-2362GCK/1.73 sq M.predicted among non-blacks MDRD (S/P/Bld) [Vol rate/Area]> 60 mL/MinOhio State Health SystemGlobulin Calc (S) [Mass/Vol]Ordered By: Dedra Mcallister on 72-65-8534Otzbejxz (S) [Mass/Vol]3.5 g/dLOhio State Health SystemGlobulin Calc (S) [Mass/Vol]Ordered By: NON STAFF on 47-16-4423Kphjoccr (S) [Mass/Vol]3.3 g/dLOhio State Health SystemHematocrit Auto (Bld) [Volume fraction]Ordered By: Dedra Mcallister on 23-91-9002Asszrsvkii (Bld) [Volume fraction]37.8 %34.0-46.4FOhio State University Wexner Medical CenterHematocrit Auto (Bld) [Volume fraction]Ordered By: NON STAFF on 91-14-4012Gwwiobukrq (Bld) [Volume fraction]40.4 %34.0-46.4FOhio State University Wexner Medical CenterHemoglobin [Mass/volume] in BloodOrdered By: Dedra Mcallister on 50-57-8489Kveajvzqpx (Bld) [Mass/Vol]12.6 g/dL11.8-15.4FOhio State University Wexner Medical CenterHemoglobin [Mass/volume] in BloodOrdered By: NON STAFF on 98-31-8446Vmkdmbfkzl (Bld) [Mass/Vol]13.5 g/dL11.8-15.4FOhio State University Wexner Medical CenterKetones Auto test strip (U) [Mass/Vol]Ordered By: Dedra Mcallister on 87-32-7421Ywcjiyy (U) [Mass/Vol]NegativeNegativeOhio State Health SystemLaboratory - Chemistry and Chemistry - challengeOrdered By: Dedra Mcallister on 98-36-1615Zcnonv [Catalytic activity/Vol]28.0 U/K55-25FfvilmnvfOhio State Health SystemLeukocytes [#/volume] corrected for nucleated erythrocytes in Blood by Automated counOrdered By: Dedra Mcallister on 08-04-2022 WBC corrected for nucl RBC Auto (Bld) [#/Vol]10.6 10*3/uL3.8-11.6FOhio State University Wexner Medical CenterLeukocytes [#/volume] corrected for nucleated erythrocytes in Blood by Automated counOrdered By: NON STAFF on 29-34-6506VTD corrected for nucl RBC Auto (Bld) [#/Vol]10.6 10*3/uL3.8-11.6FOhio State University Wexner Medical CenterLymphocytes Auto (Bld) [#/Vol]Ordered By: Dedra Mcallister on 87-64-8121Pgwquyczjmw (Bld) [#/Vol]2.5 10*3/uL1.00-4.8[facility] Health SystemLymphocytes Auto (Bld) [#/Vol]Ordered By: NON STAFF on 08-04-2022 Lymphocytes (Bld) [#/Vol]3.1 10*3/uL1.00-4.8[facility] Lymphocytes/100 WBC Auto (Bld)Ordered By: Dedra Mcallister on 08-04-2022 Lymphocytes/100 WBC (Bld)23.8 %.[facility] Health SystemLymphocytes/100 WBC Auto (Bld)Ordered By: NON STAFF on 64-23-7121Dglkudhfepi/100 WBC (Bld)29.8 %.[facility] Auto (RBC) [Entitic mass]Ordered By: Dedra Mcallister on 35-61-8576OKQ (RBC) [Entitic mass]27.6 pg24.7-34.3FMercy Health Anderson Hospital Auto (RBC) [Entitic mass]Ordered By: NON STAFF on 55-30-7757QWW (RBC) [Entitic mass]27.8 pg24.7-34.3FMercy Health Perrysburg Hospital Auto (RBC) [Mass/Vol]Ordered By: Dedra Mcallister on 71-46-1850GXWB (RBC) [Mass/Vol]33.3 g/dL32.0-35.0[facility] Auto (RBC) [Mass/Vol]Ordered By: NON STAFF on 58-71-1249QSFT (RBC) [Mass/Vol]33.3 g/dL32.0-35.0[facility] Auto (RBC) [Entitic vol] Ordered By: Dedra Mcallister on 00-37-0073IFL (RBC) [Entitic vol]82.8 vK30-664 [facility] Auto (RBC) [Entitic vol]Ordered By: NON STAFF on 84-08-7298NBD (RBC) [Entitic vol]83.4 kS78-891CoydjldttOhio State Health SystemMonocyte distribution width [Entitic volume] in Blood by Automated Ordered By: Dedra Mcallister on 16-71-9159Ebmmfwbi distribution width Auto (Bld) [Entitic vol]21.64 %0.00-20.00[facility] Health SystemComment on above: For adults in ED, MDW > 20.0 may be associated with a higher risk of sepsis during the first 12 hrs of hospital admissionMonocytes Auto (Bld) [#/Vol]Ordered By: Dedra Mcallister on 82-15-6118Ookfuayvj (Bld) [#/Vol]1.0 10*3/uL0.0-0.8 [facility] SystemMonocytes Auto (Bld) [#/Vol]Ordered By: NON STAFF on 37-43-6957Frwcwslps (Bld) [#/Vol]1.0 10*3/uL0.0-0.8[facility] Health SystemMonocytes/100 WBC Auto (Bld)Ordered By: Dedra Mcallister on 13-02-6997Zegklclzo/100 WBC (Bld)9.5 %.[facility] Monocytes/100 WBC Auto (Bld)Ordered By: NON STAFF on 23-50-6629Llneggowi/100 WBC (Bld)9.5 %.[facility] Health SystemNeutrophils Auto (Bld) [#/Vol] Ordered By: Dedra Mcallister on 58-63-5423Zyphzursfxk (Bld) [#/Vol]6.8 10*3/uL 1.8-7.7FOhio State University Wexner Medical CenterNeutrophils Auto (Bld) [#/Vol]Ordered By: NON STAFF on 70-08-9105Fjoudohbxkq (Bld) [#/Vol]6.2 10*3/uL1.8-7.7FOhio State University Wexner Medical CenterNeutrophils/100 WBC Auto (Bld)Ordered By: Dedra Mcallister on 03-50-1483Bzitpuhaknv/100 WBC (Bld)64.0 %.[facility] Neutrophils/100 WBC Auto (Bld)Ordered By: NON STAFF on 26-61-3262Kltqmaalmqy/100 WBC (Bld)58.7 %.[facility] Health SystemNitrite Test strip Ql (U) Ordered By: Dedra Mcallister on 18-62-6260Vivxzad Ql (U)NegativeNegativeOhio State Health SystemNo Panel InformationOrdered By: Dedra Mcallister on 72-94-4498Nhhidhuml GFR ()> 60 mL/MinOhio State Health SystemComment on above:GFR estimated reference range: According to KDOQI guidelines, <60 ml/min/1.73m2 is sufficient todiagnose a patient with chronic kidney disease.Pharmacy Creatinine Clearance (Chem84.58Ohio [facility] Health SystemNo Panel InformationOrdered By: Tomasa Wakefield on 08-04-2022 Adenovirus Types 40, 41Not detectedNot DetectedOhio State Health System Stool Astrovirus (PCR)Not detectedNot DetectedOhio State Health System Stool Cryptosporidium PCRNot detectedNot DetectedHocking Valley Community Hospitalol Cyclospora cayetanensis (PCR)Not detectedNot DetectedOhioHealthtool Entamoeba histolytica (PCR)Not detectedNot Detected [facility] Giardia Lamblia PCRNot detectedNot DetectedOhio State Health SystemComment on above:*Additional results available. Contact laboratory/see report*Stool Norovirus GI/GII PCRDetectedNot DetectedMercy Health Perrysburg Hospital Rotavirus (PCR)Not detectedNot DetectedMercy Health Perry[facility] Hospital Sapovirus (PCR)Not detectedNot DetectedOhio State Health SystemComment on above:Performed at: [address] [id number] Director: Ezekiel Mccarthy MD, Phone: [phone] Panel InformationOrdered By: NON STAFF on 81-73-4042Cqeuoxwrq GFR ()> 60 mL/MinOhio State Health SystemComment on above:GFR estimated reference range: According to KDOQI guidelines, <60 ml/min/1.73m2 is sufficient todiagnose a patient with chronic kidney disease.Pharmacy Creatinine Clearance (ChemN/[facility], IncNucleated erythrocytes [Presence] in Blood by Automated countOrdered By: Dedra Mcallister on 39-09-5864Gngajaads RBC Auto Ql (Bld)0.1 /100{WBC}0-0.5 [facility] SystemNucleated erythrocytes [Presence] in Blood by Automated countOrdered By: NON STAFF on 64-16-8137Xclcqspzz RBC Auto Ql (Bld)0.0 /100{WBC}0-0.5FOhio State University Wexner Medical CenterPlatelet mean volume Auto (Bld) [Entitic vol]Ordered By: Dedra Mcallister on 48-07-2093Qccqwnvq mean volume (Bld) [Entitic vol]6.4 fL6.3-10.7FOhio State University Wexner Medical CenterPlatelet mean volume Auto (Bld) [Entitic vol]Ordered By: NON STAFF on 19-07-7791Inidqrdm mean volume (Bld) [Entitic vol]6.7 fL6.3-10.7FOhio State University Wexner Medical CenterPlatetruesdale hospital Auto (Bld) [#/Vol]Ordered By: Dedra Mcallister on 13-96-9847Jidejvqtf (Bld) [#/Vol]648 10*3/xX146-430JnjmkrspvOhio State Health SystemPlatetruesdale hospital Auto (Bld) [#/Vol] Ordered By: NON STAFF on 78-78-2296Dmmxkldvx (Bld) [#/Vol]672 10*3/nV285-429 [facility] SystemProtein Auto test strip (U) [Mass/Vol]Ordered By: Dedra Mcallister on 19-39-1221Ybtmzlh (U) [Mass/Vol]NegativeNegativeOhio State Health SystemProtein [Mass/volume] in Serum or PlasmaOrdered By: Dedra Mcallister on 34-91-0580Ssoiuzr [Mass/Vol]7.0 g/dL6.1-7.9[facility] SystemProtein [Mass/volume] in Serum or PlasmaOrdered By: NON STAFF on 48-30-9966Ktyacfj [Mass/Vol]7.1 g/dL6.1-7.9[facility] SystemRB Auto (Bld) [#/Vol]Ordered By: Dedra Mcallister on 17-24-4981JSL (Bld) [#/Vol]4.56 10*6/uL3.60-5.00[facility] SystemRBC Auto (Bld) [#/Vol]Ordered By: NON STAFF on 19-24-2243CWJ (Bld) [#/Vol]4.85 10*6/uL3.60-5.00OhioHealtherum or plasma alanine aminotransferase measurement without P-5'-P (enzymatic activiOrdered By: Dedra Mcallister on 32-96-7153GXP No additional P-5'-P [Catalytic activity/Vol]36 U/B63-58VkwglvqniOhioHealtherum or plasma alanine aminotransferase measurement without P-5'-P (enzymatic activiOrdered By: NON STAFF on 60-21-6557WQL No additional P-5'-P [Catalytic activity/Vol]39 U/K36-78VkpkrhlahOhioHealtherum or plasma albumin/globulin mass ratioOrdered By: Dedra Mcallister on 08-04-2022 Albumin/Globulin [Mass ratio]1.0 {ratio}OhioHealtherum or plasma albumin/globulin mass ratioOrdered By: NON STAFF on 08-04-2022 Albumin/Globulin [Mass ratio]1.2 {ratio}OhioHealtherum or plasma alkaline phosphatase measurement (enzymatic activity/volume)Ordered By: Dedra Mcallister on 51-47-7772RSH [Catalytic activity/Vol]77 U/L32-92 OhioHealtherum or plasma alkaline phosphatase measurement (enzymatic activity/volume)Ordered By: NON STAFF on 28-77-6231ANT [Catalytic activity/Vol]85 U/D32-10UftxcbysuOhioHealtherum or plasma anion gap determinationOrdered By: Dedra Mcallister on 84-11-5676Dludr gap [Moles/Vol]14.9 mmol/L6.0-15.0OhioHealtherum or plasma anion gap determinationOrdered By: Tomasa Wakefield on 29-69-8369Ujssa gap [Moles/Vol]13.9 mmol/L6.0-15.0OhioHealtherum or plasma aspartate aminotransferase measurement (enzymatic activity/volume)Ordered By: Dedra Mcallister on 99-20-0868PQK [Catalytic activity/Vol]32 U/D70-89AacjvyxipOhioHealtherum or plasma aspartate aminotransferase measurement (enzymatic activity/volume)Ordered By: NON STAFF on 84-10-1656PKI [Catalytic activity/Vol]32 U/Q13-99WbzgcsxmyOhioHealtherum or plasma calcium measurement (mass/volume)Ordered By: Dedra Mcallister on 65-56-8273Tcescgd [Mass/Vol]9.2 mg/dL8.2-10.2FUK Healthcareerum or plasma calcium measurement (mass/volume)Ordered By: NON STAFF on 84-19-9499Gumkjlm [Mass/Vol]9.7 mg/dL8.2-10.2FUK Healthcareerum or plasma chloride measurement (moles/volume)Ordered By: Dedra Mcallister on 08-04-2022 Chloride [Moles/Vol]91 mmol/J24-949HasarxffkOhioHealtherum or plasma chloride measurement (moles/volume)Ordered By: NON STAFF on 08-04-2022 Chloride [Moles/Vol]85 mmol/T54-836PombxytkjOhioHealtherum or plasma glucose measurement (mass/volume)Ordered By: Dedra Mcallister on 52-82-9697Xlfkzfr [Mass/Vol]120 mg/zM00-880XssczcexqOhio State Health System Comment on above:ADA recommended reference rangeRandom Glucose Reference Range is dependent on time and content of last meal. Glucose of more than 200 mg/dL in a nonstressed, ambulatory subject supports the diagnosisof Diabetes Mellitus. Serum or plasma glucose measurement (mass/volume)Ordered By: NON STAFF on 90-24-2020Dnascvg [Mass/Vol]108 mg/sU54-642PvezbgvzyOhio State Health System Comment on above:ADA recommended reference rangeRandom Glucose Reference Range is dependent on time and content of last meal. Glucose of more than 200 mg/dL in a nonstressed, ambulatory subject supports the diagnosisof Diabetes Mellitus. Serum or plasma potassium measurement (moles/volume)Ordered By: Dedra Mcallister on 88-41-3400Tbyzqetof [Moles/Vol]3.2 mmol/L3.5-5.1FUK Healthcareerum or plasma potassium measurement (moles/volume)Ordered By: NON STAFF on 16-75-6268Wlrohxcpc [Moles/Vol]3.6 mmol/L3.5-5.1FUK Healthcareerum or plasma sodium measurement (moles/volume)Ordered By: Dedra Mcallister on 24-28-1516Dknjgg [Moles/Vol]127 mmol/Z702-233FhoegqvnuOhioHealtherum or plasma sodium measurement (moles/volume)Ordered By: Tomasa Wakefield on 35-32-2494Qixcvt [Moles/Vol]122 mmol/W531-487EgjbxrdlgOhio State Health SystemComment on above:Critical valueresult calledat 1247 on 08/04/22Serum or plasma total bilirubin measurement (mass/volume)Ordered By: Dedra Mcallister on 18-41-3282Mqvtnmhxj [Mass/Vol]0.2 mg/dL0.3-1.2FUK Healthcareerum or plasma total bilirubin measurement (mass/volume) Ordered By: NON STAFF on 92-69-5229Augzbbdkx [Mass/Vol]0.4 mg/dL0.3-1.2FUK Healthcareerum or plasma total carbon dioxide measurement (moles/volume)Ordered By: Dedra Mcallister on 86-83-5345CK2 [Moles/Vol]24.3 mmol/L22.0-30.0OhioHealtherum or plasma total carbon dioxide measurement (moles/volume)Ordered By: NON STAFF on 35-47-5474VZ7 [Moles/Vol]26.7 mmol/L22.0-30.0OhioHealtherum or plasma urea nitrogen measurement (mass/volume)Ordered By: Dedra Mcallister on 08-04-2022 Urea nitrogen [Mass/Vol]12 mg/dL04-07OhioHealtherum or plasma urea nitrogen measurement (mass/volume)Ordered By: NON STAFF on 74-51-0652Fgyv nitrogen [Mass/Vol]13 mg/dL04-07[facility] Shigella species+EIEC invasion plasmid antigen H ipaH gene [Presence] in Stool by NAAOrdered By: Tomasa Wakefield on 16-55-3708Eedbdvrz species+EIEC invasion plasmid antigen H ipaH gene LENCHO+non-probe Ql (Stl)Not detectedNot Detected OhioHealthpecific gravity Auto test strip (U) [Rel density]Ordered By: Dedra Mcallister on 79-16-1092Odcdpovy gravity (U) [Rel density]1.0051.001-1.030OhioHealthtool Plesiomonas shigelloides DNA detection by non-probe and target amplification meOrdered By: Tomasa Wakefield on 08-04-2022. shigelloides DNA LENCHO+non-probe Ql (Stl)Not detectedNot DetectedOhio State Health SystemUrine clarity by refractometry automatedOrdered By: Dedra Mcallister on 57-14-9570Egowvpr Refractometry automated (U)ClearClearFOhio State University Wexner Medical CenterUrine glucose measurement by automated test strip (mass/volume)Ordered By: Dedra Mcallister on 38-06-9552Qexmdqa Auto test strip (U) [Mass/Vol]Normal mg/dLHolzer HospitalUrine hemoglobin detection by automated test stripOrdered By: Dedra Mcallister on 26-54-5865Tbmavcdltn Auto test strip Ql (U) NegativeNegSelect Medical Specialty Hospital - AkronUrine leukocyte esterase detection by automated test stripOrdered By: Dedra Mcallister on 08-04-2022 Leukocyte esterase Auto test strip Ql (U)NegativeNegSelect Medical Specialty Hospital - AkronUrobilinogen Auto test strip (U) [Mass/Vol]Ordered By: Dedra Mcallister on 57-41-7054Ttyggbvvdfsh (U) [Mass/Vol]Normal mg/dLNoCleveland Clinic FoundationVibrio cholerae DNA [Presence] in Stool by LENCHO with non- probe detectionOrdered By: Tomasa Wakefield on 08-04-2022V. cholerae DNA LENCHO+non-probe Ql (Stl)Not detectedNot DetectedOhio State Health System WBC Auto (Bld) [#/Vol]Ordered By: Dedra Mcallister on 63-10-8424ULB (Bld) [#/Vol] 10.6 10*3/uL3.8-11.6FOhio State University Wexner Medical CenterWBC Auto (Bld) [#/Vol] Ordered By: PITA TRIMBLE on 00-01-1872XMJ (Bld) [#/Vol]10.6 10*3/uL3.8-11.6 [facility] Health SystemYersinia enterocolitica DNA [Presence] in Stool by LENCHO with non-probe detectionOrdered By: Tomasa Wakefield on 08-04-2022Y. enterocolitica DNA LENCHO+non-probe Ql (Stl)Not detectedNot DetectedOhio State Health SystempH Auto test strip (U)Ordered By: Dedra Mcallister on 62-32-5713aX (U)7.0 [pH]5.0-9.0[facility] Health SystemA1C HEMOGLOBINon 84-76-8997NiH7z (Bld) [Mass fraction]6.4 %[employer] Other Glucose - FINGER STICKon 83-42-3739Egbyddm [Mass/Vol] 128 mg/dLNort [employer] Other HbA1c (Bld) [Mass fraction]on 91-83-0744U5N HEMOGLOBIN [employer] Other Creatinine [Mass/volume] in UrineOrdered By: Ludy Arnett on 68-90-9231Uhfnbecosp (U) [Mass/Vol]96.4 mg/dLOhio State Health SystemComment on above:No reference range establishedUrine microalbumin measurement with detection limit of 20 mg/L or less (mass/volume)Ordered By: Ludy Arnett on 38-66-5682Ovfcctg DL <= 20 mg/L (U) [Mass/Vol]mg/dL0.0-1.8 [facility] Health SystemUrine microalbumin/creatinine mass ratioOrdered By: Ludy Arnett on 50-18-7785Zscucah/Creatinine DL <= 20 mg/L (U) [Mass ratio] TNPOhio State Health SystemComment on above:Test not performedAlbumin [Mass/volume] in Serum or PlasmaOrdered By: Ludy Arnett on 05-74-7238Wzqyrzz [Mass/Vol]3.3 g/dL3.2-5.5FOhio State University Wexner Medical CenterCholesterol [Mass/volume] in Serum or PlasmaOrdered By: Ludy Arnett on 02-16-2022 Cholesterol [Mass/Vol]180 mg/lM697-161IpagjngsnOhio State Health SystemComment on above:Chol less than 200 mg/dl low risk Chol 201-239 mg/dl borderline risk Chol 240 mg/dl and greater high riskCholesterol in LDL Calc [Mass/Vol]Ordered By: Ludy Arnett on 09-08-1056Wferyslsekg in LDL [Mass/Vol]112 mg/dL0-100 [facility] SystemComment on above:LDL ATP III CLASSIFICATION LDL less than 100 mg/dL Optimal LDL 100-129 mg/dL Near or above optimal LDL 130-159 mg/dL Borderline high LDL 160-189 mg/dL High LDL greater than 189 mg/dL Very highCholesterol in VLDL Calc [Mass/Vol]Ordered By: Ludy Arnett on 32-16-6322Qnauefpcviy in VLDL [Mass/Vol]25 mg/dLOhio State Health SystemCreatinine and Glomerular filtration rate.predicted panel (S/P/Bld)Ordered By: Ludy Arnett on 80-42-7754Jcxswtlthy [Mass/Vol]0.82 mg/dL 0.44-1.03[facility] SystemEstimated glomerular filtration rate (GFR) non- AmericanOrdered By: Ludy Arnett on 69-12-9558HNN/1.73 sq M.predicted among non-blacks MDRD (S/P/Bld) [Vol rate/Area]> 60 mL/MinOhio State Health SystemGlobulin Calc (S) [Mass/Vol]Ordered By: Ludy Arnett on 01-23-4444Jbseldov (S) [Mass/Vol]3.1 g/dLOhio State Health SystemNo Panel InformationOrdered By: Ludy Arnett on 64-73-2596B-Peptide3.5 ng/mL1.1-4.4 [facility] SystemComment on above:C-Peptide reference interval is for fasting patients. Performed at: [facility] [id number] [employer] Assistant: Sherif Mccord PhD, Phone: [phone] GFR ()> 60 mL/MinOhio State Health SystemComment on above:GFR estimated reference range: According to KDOQI guidelines, <60 ml/min/1.73m2 is sufficient todiagnose a patient with chronic kidney disease.Pharmacy Creatinine Clearance (ChemN/AFOhio State University Wexner Medical CenterProtein [Mass/volume] in Serum or PlasmaOrdered By: Ludy Arnett on 70-07-5861Njvchfq [Mass/Vol]6.4 g/dL 6.1-7.9OhioHealtherum or plasma alanine aminotransferase measurement without P-5'-P (enzymatic activiOrdered By: Ludy Arnett on 67-01-5393SVI No additional P-5'-P [Catalytic activity/Vol]18 U/X95-05FpazvtpezOhioHealtherum or plasma albumin/globulin mass ratioOrdered By: Ludy Arnett on 29-04-3647Bwtqwsd/Globulin [Mass ratio]1.1 {ratio}OhioHealtherum or plasma alkaline phosphatase measurement (enzymatic activity/volume)Ordered By: Ludy Arnett on 78-72-8329SCC [Catalytic activity/Vol]56 U/E91-81WrfbrfusvOhioHealtherum or plasma aspartate aminotransferase measurement (enzymatic activity/volume)Ordered By: Ludy Arnett on 10-72-9365FQS [Catalytic activity/Vol]25 U/I42-09AilrqhpvoOhioHealtherum or plasma calcium measurement (mass/volume)Ordered By: Ludy Arnett on 36-88-0782Sgaqqyr [Mass/Vol]9.6 mg/dL8.2-10.2FUK Healthcareerum or plasma chloride measurement (moles/volume) Ordered By: Ludy Arnett on 38-70-1563Htejudpo [Moles/Vol]95 mmol/L95-114 OhioHealtherum or plasma glucose measurement (mass/volume)Ordered By: Ludy Arnett on 43-20-2387Rnufdlv [Mass/Vol]135 mg/dL 70-100Ohio State Health SystemComment on above:ADA recommended reference range Random Glucose Reference Range is dependent on time and content of last meal. Glucose of more than 200 mg/dL in a nonstressed, ambulatory subject supports the diagnosis of Diabetes Mellitus.Serum or plasma high density lipoprotein (HDL) cholesterol measurementOrdered By: Ludy Arnett on 62-60-6863Qywlunpcmqz in HDL [Mass/Vol]42 mg/rX21-06QxjhuibzlOhio State Health SystemComment on above:HDL CHOL ATP-III CLASSIFICATION Cardiovascular Risk HDL > or equal to 60 mg/dL LOW HDL < 40 mg/dL HIGHSerum or plasma potassium measurement (moles/volume)Ordered By: Ludy Arnett on 12-50-0047Uzfqsxvdj [Moles/Vol]3.3 mmol/L3.5-5.1FUK Healthcareerum or plasma sodium measurement (moles/volume)Ordered By: Ludy Arnett on 30-71-4800Feyntp [Moles/Vol]133 mmol/O126-055KtgwgnvkeOhioHealtherum or plasma total bilirubin measurement (mass/volume) Ordered By: Ludy Arnett on 58-34-7561Uyuczktba [Mass/Vol]0.5 mg/dL0.3-1.2 OhioHealtherum or plasma total carbon dioxide measurement (moles/volume)Ordered By: Ludy Arnett on 90-94-1255FB8 [Moles/Vol] 26.8 mmol/L22.0-30.0OhioHealtherum or plasma total cholesterol/high density lipoprotein (HDL) cholesterol mass ratOrdered By: Ludy Arnett on 00-36-2299Yhxktdbutgw.total/Cholesterol in HDL [Mass ratio]4.3 {ratio}<5.0OhioHealtherum or plasma urea nitrogen measurement (mass/volume)Ordered By: Ludy Arnett on 70-88-8022Kfnh nitrogen [Mass/Vol]6 mg/dL9-23Ohio State Health SystemTriglyceride [Mass/volume] in Serum or PlasmaOrdered By: Ludy Arnett on [id number] [Mass/Vol] 129 mg/tB64-891BkmqhnfpeOhio State Health SystemComment on above:TRIG ATP III CLASSIFICATION TRIG less than 150 mg/dL Normal TRIG 150-199 mg/dL Borderline high TRIG 200-500 mg/dL High TRIG greater than 500 mg/dL Very high Standard traceable to the Center for Disease Conrtrol and Prevention (CDC) test method.A1C HEMOGLOBINon 56-40-7405UlX7b (Bld) [Mass fraction]6.3 %[employer] Other Glucose - FINGER STICKon 54-45-0348Bfzweum [Mass/Vol] 148 mg/dLNortSelect Specialty Hospital - York [place] Other HbA1c (Bld) [Mass fraction]on 94-24-5558Y8S HEMOGLOBIN [facility] [place] Other CBC W Auto Differential panel (Bld)on 85-63-2398Jrv Immature Gran0.04 k/uL<0.10 k/uLDrakesville ClinicBasophils (Bld) [#/Vol]0.11 10*3/uLHigh<0.11 k/uLDrakesville ClinicBasophils/100 WBC (Bld)1.1 %[facility] CenterDifferential cell count method Nom (Bld)AutoCleveland ClinicEosinophils (Bld) [#/Vol]0.56 10*3/uLHigh<0.46 k/uLClefirelands regional medical center ClinicEosinophils/100 WBC (Bld) 5.4 %[facility] CenterErythrocyte distribution width (RBC) [Ratio]15.2 %High11.5 - 15.0 %[facility] CenterHematocrit (Bld) [Volume fraction]35.6 %Low36.0 - 46.0 % [facility] CenterHemoglobin (Bld) [Mass/Vol]11.3 g/dLLow11.5 - 15.5 g/dLUniversity Hospitals Lake West Medical CenterImmature Gran %0.4 %[facility] CenterLymphocytes (Bld) [#/Vol]2.85 10*3/uL 1.00 - 4.00 k/uLUniversity Hospitals Lake West Medical CenterLymphocytes/100 WBC (Bld)27.6 %[facility] MCH (RBC) [Entitic mass]28.0 pg26.0 - 34.[address] [facility] Hospital And ClinicMCHC (RBC) [Mass/Vol]31.7 g/dL30.5 - 36.0 g/dLUniversity Hospitals Lake West Medical CenterMCV (RBC) [Entitic vol]88.3 fL80.0 - 100.0 fLCleveland ClinicMonocytes (Bld) [#/Vol]0.96 10*3/uLHigh<0.87 k/uLClefirelands regional medical center ClinicMonocytes/100 WBC (Bld)9.3 %[facility] CenterNeutrophils (Bld) [#/Vol]5.80 10*3/uL1.45 - 7.50 k/uLDrakesville ClinicNeutrophils/100 WBC (Bld)56.2 %[facility] CenterNucleated RBC (Bld) [#/Vol]10*3/uL<0.01 k/uLDrakesville ClinicNucleated RBC/100 WBC (Bld) [Ratio]0.0 /100 WBCDrakesville ClinicPlatelet mean volume (Bld) [Entitic vol]8.5 fLLow9.0 - 12.7 fLClevelformerly [facility] ClinicPlatelets (Bld) [#/Vol]816 10*3/lTUthr922 - 400 k/[facility] ClinicRBC (Bld) [#/Vol]4.03 10*6/uL3.90 - 5.20 m/[facility] ClinicWBC (Bld) [#/Vol]10.32 10*3/uL3.70 - 11.00 k/[facility] ClinicXR CHEST 2V FRONTAL/LATon 08-23-8621Fnboewszv ClinicXR UPPER GI ROUTINE DOUBLE CONTRAST/AIRon 78-02-9104Btqgpohsb ClinicXR knee RT 4V* on 29-47-0273ZJ knee RT 4V*[facility] [place] Other XR knee RT 4V*[facility] [place] Other XR knee RT 4V*1111 [facility] [place] Other XR knee RT 4V*[place] [address] [place] [address] [place] Other XR knee RT 4V*XRay [facility] [place] Other XR knee RT 4V*[facility] [employer] Other XR knee RT 4V*Patient: Laura Stephenson MR#: [id number] [facility] [place] Other XR knee RT 4V*[facility] [employer] Other XR knee RT 4V*: 1960 Acct:[id number] [employer] Other XR knee RT 4V*Age/Sex: 61 / F ADM Date: 11/13/21[employer] Other XR knee RT 4V*Loc: XDUCLY Room: Type: [facility] [employer] Other XR knee RT 4V*Attending Dr: Bobbi Aguirre [facility] [employer] Other XR knee RT 4V*Ordering Provider: Bobbi Aguirre APRN [employer] Other XR knee RT 4V*Date of Service: 11/13/21[employer] Other XR knee RT 4V* XR/XR knee RT 4V*: Fall, initial encounterElk Horn [employer] Other XR knee RT 4V*Copies to: Bobbi Aguirre, [facility] Other XR knee RT 4V*4 views RIGHT knee plain filmElk Horn [employer] Other XR knee RT 4V*COMPARISON:[facility] [employer] Other XR knee RT 4V*HISTORY:Fell injuring RIGHT kneeElk Horn [employer] Other XR knee RT 4V*No fracture, dislocation or focal soft tissue abnormality seen. Moderate sized joint effusionElk Horn [employer] Other xr knee RT 4V*present. Advanced patellofemoral degeneration present. Superior patellar spurring identified.[employer] Other xr knee RT 4V*Defect appears chronic.[employer] Other XR knee RT 4V* XR/XR knee RT 4V* [employer] Other xr knee RT 4V*IMPRESSION:No acute bony findings. Advanced patellofemoral degeneration. Large suprapatellarNokindred hospital [employer] Other XR knee RT 4V*effusion. Suprapatellar spurring with defect.[employer] Other XR knee RT 4V*Impression dictated by: Richard Cope M.D.11/13/2021 12:[address] [facility] [employer] Other XR knee RT 4V*Dictation Location: [id number] [employer] Other XR knee RT 4V*Transcribed By: PWS 11/13/[address] [place] [address] [employer] Other xr knee RT 4V*Dictated By: Richard Cope DO 11/13/21 [facility] [employer] Other xr knee RT 4V*Signed By:[employer] Other xr knee RT 4V*11/13/21 [facility] HospitalP[facility] Other AMYLASE BFLon 15-81-6615Vzittvu (Body fld) [Catalytic activity/Vol][id number] U/LSee Comment U/LCleveland ClinicAmylase (Body fld) [Catalytic activity/Vol]on 09-51-8107Qyxfr Nom (Body fld)Pancreatic Tail [facility] CenterEGD - THERAPEUTIC, EUS, OR TUBE INTERVENTIONSon 11-10-2021 [facility] CenterGLUCOSE BFLon 61-28-0843Nxyyjgk (Body fld) [Mass/Vol]<2See Comment mg/dLUniversity Hospitals Lake West Medical CenterMRI PANC/ROSE MARIE WO/W IVCONon 66-17-6392Lttqppezf Clinic Vital Signs Date TimeVital SignValuePerforming FwinexmmmJhvbcyka72-30-1230 09:26-0400Body wsmqej092.1 cmVerin Enriquez MD Work Phone: [facility]08-29-2025 09:26-0400Body mass index (BMI) [Ratio]35.29 kg/s5VezukAna Enriquez MD Work Phone: [facility]08-29-2025 09:26-0400Body temperature 97.39 [degF]Ana Enriquez MD Work Phone: [facility]08-29-2025 09:26-0400Body .2 kgAna Enriquez MD Work Phone: [facility]08-29-2025 09:26-0400Diastolic blood foasfkom09 mm[Hg]Ana Enriquez MD Work Phone: [facility]08-29-2025 09:26-0400Heart rate72 /min Ana Enriquez MD Work Phone: [facility]08-29-2025 09:26-0400Respiratory rate 16 /minAna Enriquez MD Work Phone: [facility]08-29-2025 09:26-5371TwA9% (BldA) [Mass fraction]97 %Ana Enriquez MD Work Phone: [facility]08-29-2025 09:26-0400Systolic blood uvqfines551 mm[Hg]Ana Enriquez MD Work Phone: [facility]08-04-2025 09:50-0400Body ejfnvc247.1 cmThomas Barton DO Work Phone: [facility]08-04-2025 09:50-0400 Body mass index (BMI) [Ratio]35 kg/g4Tyrdge Barton DO Work Phone: [facility]08-04-2025 09:50-0400 Body befrgi35.5 kgThomas Barton DO Work Phone: [facility]08-04-2025 09:50-0400 Diastolic blood lbxqyqho37 mm[Hg]Renaldo Barton DO Work Phone: [facility]08-04-2025 09:50-0400 Heart rate63 /minThomas Barton DO Work Phone: [facility]08-04-2025 09:50-0400 Respiratory rate18 /minThomas Barton DO Work Phone: [facility]08-04-2025 09:50-0400 SaO2% (BldA) [Mass fraction]97 %Renaldo Barton DO Work Phone: [facility]08-04-2025 09:50-0400 Systolic blood eakknfcd276 mm[Hg]Renaldo Barton DO Work Phone: [facility]07-01-2025 09:20-0400 Diastolic blood monjwzru44 mm[Hg]Ashu Mittal MD Work Phone: [facility]07-01-2025 09:20-0400Heart rate69 /min Ashu Mittal MD Work Phone: [phone]07-01-2025 09:20-0400Respiratory rate 16 /minAshu Mittal MD Work Phone: [phone]07-01-2025 09:20-2797RsG8% (BldA) [Mass fraction]99 %Ashu Mittal MD Work Phone: [phone]07-01-2025 09:20-0400Systolic blood tdrpbvpo194 mm[Hg]Ashu Mittal MD Work Phone: [phone]07-01-2025 09:02-0400Body temperature 97.5 [degF]Ashu Mittal MD Work Phone: [phone]07-01-2025 08:17-0400Body zyhtzi717.1 Crissy Mittal MD Work Phone: [phone]07-01-2025 08:17-0400Body mass index (BMI) [Ratio]33.95 kg/m2Ashu Mittal MD Work Phone: [phone]07-01-2025 08:17-0400Body fbxeds82.53 kgAshu Mittal MD Work Phone: [phone]06-06-2025 15:58-0400Body .1 cmDalandon Harris MD Work Phone: [phone] VA Medical CenterTjwghe71-36-8941 15:58-0400Body mass index (BMI) [Ratio]34.05 kg/m7BhkpagTheron Harris MD Work Phone: QChillicothe VA Medical CenterCmrvpa56-63-5771 15:58-0400Body temperature 98.01 [degF]Theron Harris MD Work Phone: KChillicothe VA Medical CenterQnfqar89-04-3179 15:58-0400Body hiebds52.81 kgTheron Harris MD Work Phone: KChillicothe VA Medical CenterCaafls70-52-5317 15:58-0400Diastolic blood wyumxate59 mm[Hg]Theron Harris MD Work Phone: VChillicothe VA Medical CenterXhekhk49-49-1407 15:58-0400Heart rate57 /min Theron Harris MD Work Phone: [phone] VA Medical CenterParjig27-44-5856 15:58-0400Systolic blood fusknswe375 mm[Hg]Theron Harris MD Work Phone: [phone] VA Medical CenterYqbwur21-62-8932 16:37-0400Body uaxdee800.1 cmTsariahas Barton DO Work Phone: [facility]05-27-2025 16:37-0400 Body mass index (BMI) [Ratio]34.1 kg/f6Pxyisi Barton DO Work Phone: [facility]05-27-2025 16:37-0400 Body klotlp85.98 kgThomas Barton DO Work Phone: [facility]05-27-2025 16:37-0400 Diastolic blood zddfyqcl23 mm[Hg]Renaldo Barton DO Work Phone: [phone] [place], [place] 7577305-27-2025 16:37-0400 Heart rate67 /minThomas Barton DO Work Phone: [phone] [place], [place] 7577305-27-2025 16:37-0400 Respiratory rate18 /minThomas Barton DO Work Phone: [phone])[address] [place], [place] 7577305-27-2025 16:37-0400 SaO2% (BldA) [Mass fraction]98 %Renaldo Barton DO Work Phone: [phone] [place], [place] 7577305-27-2025 16:37-0400 Systolic blood kevhxptx182 mm[Hg]Renaldo Barton DO Work Phone: [phone] [place], [place] 7577305-21-2025 17:00-0400 Diastolic blood vsxabmuy68 mm[Hg]Renaldo Barton DO Work Phone: [phone] [place], [place] 7577305-21-2025 17:00-0400 Heart rate67 /minThomas Barton DO Work Phone: [phone] [place], [place] 7577305-21-2025 17:00-0400 Respiratory rate20 /minThomas Barton DO Work Phone: [phone] [place], [place] 7577305-21-2025 17:00-0400 SaO2% (BldA) [Mass fraction]98 %Renaldo Barton DO Work Phone: [phone] [place], [place] 7577305-21-2025 17:00-0400 Systolic blood szpiqoii003 mm[Hg]Renaldo Barton DO Work Phone: [phone] [place], [place] 7577305-21-2025 14:09-0400 Body .1 cmThomshamar Barton DO Work Phone: [phone] [place], [place] 7577305-21-2025 14:09-0400 Body bdrduvjrjho31 [degF]Renaldo Barton DO Work Phone: [phone] [place], [place] 7577305-21-2025 14:09-0400 Body tezxrs95.25 kgThomas Barton DO Work Phone: [phone] [place], [place] 7577304-21-2025 08:17-0400 Body ykkvzw280.1 cmThomas Barton DO Work Phone: [phone] [place], [place] 7577304-21-2025 08:17-0400 Body mass index (BMI) [Ratio]34.5 kg/e6Efxdmz Barton DO Work Phone: [phone] [place], [place] 7577304-21-2025 08:17-0400 Body .1 kgThomas Barton DO Work Phone: [phone] [place], [place] 7577304-21-2025 08:17-0400 Diastolic blood oamnahog89 mm[Hg]Renaldo Barton DO Work Phone: [phone] [place], [place] 7577304-21-2025 08:17-0400 Heart rate62 /minThomas Barton DO Work Phone: [phone] [place], [place] 7577304-21-2025 08:17-0400 Respiratory rate18 /minThomas Barton DO Work Phone: [phone] [place], [place] 7577304-21-2025 08:17-0400 SaO2% (BldA) [Mass fraction]98 %Renaldo Barton DO Work Phone: [phone] [place], [place] 7577304-21-2025 08:17-0400 Systolic blood ostrowrt045 mm[Hg]Renaldo Barton DO Work Phone: [phone] [place], [place] 7577303-06-2025 13:14-0500 Body .1 cmTomasa Wakefield EXECUTIVE KITCHEN MANAGER.SEED SERVICE ADVISOR Work Phone: [facility]03-06-2025 13:14-0500Body mass index (BMI) [Ratio]33.28 kg/e4AqgezphTomasa Wakefield EXECUTIVE KITCHEN MANAGER.SEED SERVICE ADVISOR Work Phone: [facility]03-06-2025 13:14-0500Body vocpse72.72 kgTomasa Wakefield EXECUTIVE KITCHEN MANAGER.SEED SERVICE ADVISOR Work Phone: [facility]02-21-2025 10:58-0500Body mass index (BMI) [Ratio]33.38 kg/u7FtkdjAna Enriquez MD Work Phone: [facility]02-21-2025 10:58-0500Body temperature 98.29 [degF]Ana Enriquez MD Work Phone: [facility]02-21-2025 10:58-0500Body afdghx13 kg Ana Enriquez MD Work Phone: [facility]02-21-2025 10:58-0500Diastolic blood zvxaupze49 mm[Hg]Ana Enriquez MD Work Phone: [facility]02-21-2025 10:58-0500Heart rate61 /min Ana Enriquez MD Work Phone: [facility]02-21-2025 10:58-0500Respiratory rate 16 /minAna Enriquez MD Work Phone: [facility]02-21-2025 10:58-4286TfW1% (BldA) [Mass fraction]98 %Ana Enriquez MD Work Phone: [facility]02-21-2025 10:58-0500Systolic blood edxnpndz376 mm[Hg]Ana Enriquez MD Work Phone: [facility]11-26-2024 16:49-0500Body ezdgkl946.1 cmThomas Barton DO Work Phone: [facility]11-26-2024 16:49-0500 Body mass index (BMI) [Ratio]33.3 kg/b0Hqixma Barton DO Work Phone: [facility]11-26-2024 16:49-0500 Body vihhlr33.71 kgThomas Barton DO Work Phone: [facility]11-26-2024 16:49-0500 Diastolic blood yrcdtiyw31 mm[Hg]Renaldo Barton DO Work Phone: [phone])[address] [place], [place] 7577311-26-2024 16:49-0500 Heart rate67 /minThomas Barton DO Work Phone: [phone] [place], [place] 7577311-26-2024 16:49-0500 SaO2% (BldA) [Mass fraction]96 %Renaldo Barton DO Work Phone: [phone] [place], [place] 7577311-26-2024 16:49-0500 Systolic blood dlkwjuiy320 mm[Hg]Renaldo Barton DO Work Phone: [phone])[address] [place], [place] 7577311-25-2024 08:12-0500 Body sjwzqi155.1 cmTbeacon behavioral hospitalshamar Barton DO Work Phone: [phone] [place], [place] 7577311-25-2024 08:12-0500 Body mass index (BMI) [Ratio]33.3 kg/p4Tohgsg Barton DO Work Phone: [phone] [place], [place] 7577311-25-2024 08:12-0500 Body .74 kgThela Barton DO Work Phone: [phone])[address] [place], [place] 7577311-25-2024 08:12-0500 Diastolic blood mm[Hg]Renaldo Barton DO Work Phone: [phone])[address] [place], [place] 7577311-25-2024 08:12-0500 Heart rate59 /minThomas Barton DO Work Phone: 1(675)[address] [place], [place] 7577311-25-2024 08:12-0500 Respiratory rate18 /minThomas Barton DO Work Phone: 1(481)[address] [place], [place] 7577311-25-2024 08:12-0500 SaO2% (BldA) [Mass fraction]97 %Renaldo Barton DO Work Phone: [phone])[address] [place], [place] 7577311-25-2024 08:12-0500 Systolic blood mm[Hg]Renaldo Barton DO Work Phone: [facility]06-13-2024 14:00-0400 Diastolic blood umfkpdrp51 mm[Hg]Ashu Mittal MD Work Phone: [phone]06-13-2024 14:00-0400Heart rate60 /min Ashu Mittal MD Work Phone: [phone]06-13-2024 14:00-0400Respiratory rate 16 /minAshu Mittal MD Work Phone: [phone]06-13-2024 14:00-1118FvZ3% (BldA) [Mass fraction]99 %Ashu Mittal MD Work Phone: [phone]06-13-2024 14:00-0400Systolic blood vyflvagk681 mm[Hg]Ashu Mittal MD Work Phone: [phone]06-13-2024 13:36-0400Body temperature 97.2 [degF]Ashu Mittal MD Work Phone: [phone]06-13-2024 12:50-0400Body dvfibp270.1 Crissy Mittal MD Work Phone: [phone]06-13-2024 12:50-0400Body mass index (BMI) [Ratio]30.79 kg/m2Ashu Mittal MD Work Phone: [phone]06-13-2024 12:50-0400Body ikfzhy27.92 kgAshu Mittal MD Work Phone: [phone]05-28-2024 09:50-0400Body mass index (BMI) [Ratio]31.37 kg/t9MlswhwTheron Harris MD Work Phone: [phone] VA Medical CenterRkyagl84-45-9884 09:50-0400Body temperature 98.29 [degF]Theron Harris MD Work Phone: [phone] VA Medical CenterUdlirw90-88-7434 09:50-0400Body xxpkui80.5 kgTheron Harris MD Work Phone: [place] Gbiqxo26-72-9044 09:50-0400Diastolic blood tuehucty12 mm[Hg]Theron Harris MD Work Phone: [phone] Diojui74-82-7949 09:50-0400Heart rate73 /min Theron Harris MD Work Phone: [phone] health washing[facility] townshipand Amamwu46-31-2350 09:50-0400Respiratory rate 20 /minDcruz Harris MD Work Phone: [phone] Vwmqtl16-70-5271 09:50-3039BhC6% (BldA) [Mass fraction]98 %Theron Harris MD Work Phone: [phone] Sxweld90-98-4475 09:50-0400Systolic blood qxatjkap148 mm[Hg]Theron Harris MD Work Phone: [phone] health washington townshipand Cokzoj64-14-6888 15:26-0400Body lmbyyg746.1 cmDO Renaldo Barton Work Phone: [phone])[address]05-22-2024 15:26-0400 Body mass index (BMI) [Ratio]30.9 kg/m2DO Renaldo Barton Work Phone: [phone])[address]05-22-2024 15:26-0400 Body npxohb15.36 kgDO Renaldo Barton Work Phone: [phone])1-[facility]05-22-2024 15:26-0400 Diastolic blood vxoscile16 mm[Hg]DO Renaldo Barton Work Phone: [phone])1-[facility]05-22-2024 15:26-0400 Heart rate86 /minDO Renaldo Barton Work Phone: [phone]-[facility]05-22-2024 15:26-0400 SaO2% (BldA) [Mass fraction]96 %DO Renaldo Barton Work Phone: [phone]-[facility]05-22-2024 15:26-0400 Systolic blood ctvnoyuv620 mm[Hg]DO Renaldo Barton Work Phone: [facility]05-22-2024 11:49-0400 Body mvgnin685.1 cmTomasa Wakefield EXECUTIVE KITCHEN MANAGER.SEED SERVICE ADVISOR Work Phone: [facility]05-22-2024 11:49-0400Body mass index (BMI) [Ratio]30.25 kg/n5VnizoyfTomasa Wakefield EXECUTIVE KITCHEN MANAGER.SEED SERVICE ADVISOR Work Phone: [phone]05-22-2024 11:49-0400Body temperature 98.1 [degF]Tomasa Wakefield EXECUTIVE KITCHEN MANAGER.SEED SERVICE ADVISOR Work Phone: [phone]05-22-2024 11:49-0400Body bvytks70.46 kgTomasa Wakefield EXECUTIVE KITCHEN MANAGER.SEED SERVICE ADVISOR Work Phone: [phone]05-22-2024 11:49-0400Diastolic blood mm[Hg]Tomasa Wakefield EXECUTIVE KITCHEN MANAGER.SEED SERVICE ADVISOR Work Phone: [phone]05-22-2024 11:49-0400Heart rate85 /min Tomasa Wakefield EXECUTIVE KITCHEN MANAGER.SEED SERVICE ADVISOR Work Phone: [phone]05-22-2024 11:49-7529MzB6% (BldA) [Mass fraction]95 %Tomasa Wakefield EXECUTIVE KITCHEN MANAGER.SEED SERVICE ADVISOR Work Phone: [phone]05-22-2024 11:49-0400Systolic blood yliygrms686 mm[Hg]Tomasa Wakefield EXECUTIVE KITCHEN MANAGER.SEED SERVICE ADVISOR Work Phone: [phone]05-20-2024 07:54-0400Body rethxh527.1 cmDO Renaldo Barton Work Phone: [facility]05-20-2024 07:54-0400 Body mass index (BMI) [Ratio]30.6 kg/m2DO Renaldo Barton Work Phone: [facility]05-20-2024 07:54-0400 Body erowdy86.46 kgDO Renaldo Barton Work Phone: [facility]05-20-2024 07:54-0400 Diastolic blood hniyxirk73 mm[Hg]DO Renaldo Barton Work Phone: [phone]05-20-2024 07:54-0400 Heart rate66 /JaneO Renaldo Barton Work Phone: [phone])[address]05-20-2024 07:54-0400 Respiratory rate18 /JaneO Renaldo Barton Work Phone: 1(936)[address]05-20-2024 07:54-0400 SaO2% (BldA) [Mass fraction]96 %DO Renaldo Barton Work Phone: [phone]05-20-2024 07:54-0400 Systolic blood dhqlnywt648 mm[Hg]DO Renaldo Barton Work Phone: [phone])[address]04-29-2024 09:16-0400 Body cdcgvi924.1 cmAnthony Damian MD Work Phone: [facility]04-29-2024 09:16-0400Body mass index (BMI) [Ratio]30.95 kg/h8QjocnjAnthony Damian MD Work Phone: [facility]04-29-2024 09:16-0400Body .37 kgAnthony Damian MD Work Phone: [facility]04-25-2024 08:22-0400Body fzxyak352.1 Jie Enriquez MD Work Phone: [facility]04-25-2024 08:22-0400Body mass index (BMI) [Ratio]31.44 kg/i6IbprgAna Enriquez MD Work Phone: [facility]04-25-2024 08:22-0400Body temperature 97.59 [degF]Ana Enriquez MD Work Phone: [facility]04-25-2024 08:22-0400Body jonxmm14.7 kgAna Enriquez MD Work Phone: [facility]04-25-2024 08:22-0400Diastolic blood vtermyub79 mm[Hg]Ana Enriquez MD Work Phone: [facility]04-25-2024 08:22-0400Heart rate78 /min Ana Enriquez MD Work Phone: [facility]04-25-2024 08:22-0400Respiratory rate 16 /minAna Enriquez MD Work Phone: [facility]04-25-2024 08:22-7384NdM0% (BldA) [Mass fraction]98 %Ana Enriquez MD Work Phone: [facility]04-25-2024 08:22-0400Systolic blood ubeweznm214 mm[Hg]Ana Enriquez MD Work Phone: [facility]04-11-2024 07:36-0400Body temperature 97.5 [degF]DO Renaldo Barton Work Phone: [facility]04-11-2024 07:36-0400 Diastolic blood gpocsnhu48 mm[Hg]DO Renaldo Barton Work Phone: [facility]04-11-2024 07:36-0400 Heart rate78 /Romeo Barton Work Phone: [facility]04-11-2024 07:36-0400 Respiratory rate16 /Romeo Barton Work Phone: [facility]04-11-2024 07:36-0400 SaO2% (BldA) [Mass fraction]96 %DO Renaldo Barton Work Phone: [facility]04-11-2024 07:36-0400 Systolic blood pvoawsmu526 mm[Hg]DO Renaldo Barton Work Phone: 1(304)[address] [place], [place] 7577304-11-2024 06:00-0400 Body .8 kgDO Renaldo Barton Work Phone: 1(585)[address] [place], [place] 7577304-10-2024 13:39-0400 Body rzsora837.1 cmDO Renaldo Barton Work Phone: 1(126)[address] [place], [place] 7577304-10-2024 03:52-0400 Body czvhibnbmce39.7 [degF]DO Renaldo Barton Work Phone: 1(013)[address] [place], [place] 7577304-10-2024 03:52-0400 Diastolic blood mm[Hg]DO Renaldo Barton Work Phone: 1(969)[address] [place], [place] 7577304-10-2024 03:52-0400 Heart rate92 /Romeo Barton Work Phone: 1(196)[address] [place], [place] 7577304-10-2024 03:52-0400 Respiratory rate17 /minDO Renaldo Barton Work Phone: 1(481)[address] [place], [place] 7577304-10-2024 03:52-0400 SaO2% (BldA) [Mass fraction]95 %DO Renaldo Barton Work Phone: 1(839)[address] [place], [place] [id number] 03:52-0400 Systolic blood mm[Hg]DO Renaldo Barton Work Phone: 1(635)[address] [place], [place] [id number] 19:44-0400 Body utqzhl081.1 cmDO Renaldo Barton Work Phone: 1(424)[address] [place], [place] 7577304-09-2024 19:44-0400 Body .7 kgDO Renaldo Barton Work Phone: [phone] [place], [place] 7577302-21-2024 08:03-0500 Body oaipri289.1 cmDO Renaldo Barton Work Phone: [phone] [place], [place] 7577302-21-2024 08:03-0500 Body mass index (BMI) [Ratio]32.1 kg/m2DO Renaldo Barton Work Phone: [phone] [place], [place] 8533202-21-2024 08:03-0500 Body ocngdt89.54 kgDO Renaldo Barton Work Phone: [phone] [place], [place] 7577302-21-2024 08:03-0500 Diastolic blood tendquvq16 mm[Hg]DO Renaldo Barton Work Phone: [phone] [place], [place] 7577302-21-2024 08:03-0500 Heart rate62 /Romeo Barton Work Phone: [phone])[address] [place], [place] 7577302-21-2024 08:03-0500 Respiratory rate18 /Romeo Barton Work Phone: [phone] [place], [place] 7577302-21-2024 08:03-0500 SaO2% (BldA) [Mass fraction]98 %DO Renaldo Barton Work Phone: [phone] [place], [place] 7577302-21-2024 08:03-0500 Systolic blood mtboclxg085 mm[Hg]DO Renaldo Barton Work Phone: [phone] [place], [place] 7577301-31-2024 15:15-0500 Body dnpikh900.1 cmVerin Enriquez MD Work Phone: [facility]01-31-2024 15:15-0500Body temperature 97.39 [degF]Ana Enriquez MD Work Phone: [facility]01-31-2024 15:15-0500Body .2 kgAna Enriquez MD Work Phone: [facility]01-31-2024 15:15-0500Diastolic blood fgzswvza35 mm[Hg]Ana Enriquez MD Work Phone: [facility]01-31-2024 15:15-0500Heart rate60 /min Ana Enriquez MD Work Phone: [facility]01-31-2024 15:15-0500Respiratory rate 16 /minAna Enriquez MD Work Phone: [facility]01-31-2024 15:15-7902QtK9% (BldA) [Mass fraction]98 %Ana Enriquez MD Work Phone: [facility]01-31-2024 15:15-0500Systolic blood fviujjds494 mm[Hg]Ana Enriquez MD Work Phone: [facility]12-30-2023 12:45-0500Body yavkhv230.1 Brook Andrew Other [facility]12-30-2023 12:45-0500 Body mass index (BMI) [Ratio]32.45 kg/m2Christie Andrew Other [employer] Other 12-30-2023 12:45-0500Body slnlbzvfakz61 [degF]Christie Andrew Other [employer] Other 12-30-2023 12:45-0500Body mqomcy75.45 kgChristie Andrew Other [facility]12-30-2023 12:45-0500 Respiratory rate18 /minChristie Andrew Other [employer] Other 12-30-2023 12:45-0930EbG9% (BldA) [Mass fraction]99 % Christie Andrew Other [employer] Other 12-13-2023 17:30-0500Body lxytuv874.1 Montez Galindo Other [facility]12-13-2023 17:30-0500 Body mass index (BMI) [Ratio]33.28 kg/i5HyfbdrNataliia Galindo Other [employer] Other 12-13-2023 17:30-0500Body axumlmvcyhw37.2 [degF]Nataliia Josie Other [employer] Other 12-13-2023 17:30-0500Body ecaiew50.72 kgNataliia Galindo Other [employer] Other 12-13-2023 17:30-0500Body uxjylb68.71 kgPlacido Brody Work Phone: [facility]12-13-2023 17:30-0500 Diastolic blood xwjetxqf22 mm[Hg]Nataliia Josie Other [facility]12-13-2023 17:30-0500 Respiratory rate18 /minNataliia Galindo Other [employer] Other 12-13-2023 17:30-5724UoP0% (BldA) [Mass fraction]99 % Nataliia Josie Other [employer] Other 12-13-2023 17:30-0500Systolic blood tzjaylhx829 mm[Hg] Nataliia Josie Other [facility]11-21-2023 16:00-0500 Body petryy457.1 Shay Barton Other [facility]11-21-2023 16:00-0500 Body mass index (BMI) [Ratio]33.94 kg/k5WwluefRenaldo Barton Other [employer] Other 11-21-2023 16:00-0500Body polbjpuguqo14.7 [degF]Renaldo Barton Other [employer] Other 11-21-2023 16:00-0500Body .53 kgRenaldo Barton Other [facility]11-21-2023 16:00-0500 Diastolic blood dawhytmf19 mm[Hg]Renaldo Barton Other [facility]11-21-2023 16:00-0500 Respiratory rate18 /minRenaldo Barton Other [employer] Other 11-21-2023 16:00-0080FlR6% (BldA) [Mass fraction]99 % Renaldo Barton Other [employer] Other 11-21-2023 16:00-0500Systolic blood hdarfxgm388 mm[Hg] Renaldo Barton Other [facility]11-09-2023 08:15-0500 Body svytle866.1 cmTondra Melquiades Other [facility] Other 11-09-2023 08:15-0500Body mass index (BMI) [Ratio] 33.96 kg/j1Znekke Verous Other [employer] Other 11-09-2023 08:15-0500Body ghydzx63.58 kgTondra Mapus Other [employer] Other 11-09-2023 08:15-0500Diastolic blood bobqigsi92 mm[Hg] Tondra Mapus Other [employer] Other 11-09-2023 08:15-0500Respiratory rate18 /minTondra Mapus Other [employer] Other 11-09-2023 08:15-2293JiM8% (BldA) [Mass fraction]100 % [facility]ra [facility] Other 11-09-2023 08:15-0500Systolic blood plcpjlyb424 mm[Hg] Tondra Mapus [facility] Other 11-06-2023 16:09-0500Body wiklzf609.1 cmMindy Nimisha PA-C Work Phone: [facility]11-06-2023 16:09-0500Body temperature 97.59 [degF]Marilee Nimisha PA-C Work Phone: [facility]11-06-2023 16:09-0500Body euyagn77.26 kgMindy Nimisha PA-C Work Phone: [facility]11-06-2023 16:09-0500Diastolic blood jpgsezxw94 mm[Hg]Marilee Nimisha PA-C Work Phone: [facility]11-06-2023 16:09-0500Heart rate64 /min Marilee Nimisha PA-C Work Phone: [facility]11-06-2023 16:09-0500Respiratory rate 16 /minMindy Nimisha PA-C Work Phone: [facility]11-06-2023 16:09-9407PqT4% (BldA) [Mass fraction]96 %Marilee Nimisha PA-C Work Phone: [facility]11-06-2023 16:09-0500Systolic blood zpryipft538 mm[Hg]Marilee Nimisha PA-C Work Phone: [facility]10-05-2023 16:20-0400Body yemccv342.1 Crissy Mittal MD Work Phone: [facility]10-05-2023 16:20-0400Body temperature 98.01 [degF]Ashu Mittal MD Work Phone: [phone]10-05-2023 16:20-0400Body ilaaqv08.72 kgAshu Mittal MD Work Phone: [phone]10-05-2023 16:20-0400Diastolic blood ouwqzuid67 mm[Hg]Ashu Mittal MD Work Phone: [phone]10-05-2023 16:20-0400Heart rate58 /min Ashu Mittal MD Work Phone: [phone]10-05-2023 16:20-3113QkX8% (BldA) [Mass fraction]98 %Ashu Mittal MD Work Phone: [phone]10-05-2023 16:20-0400Systolic blood yghrryfc605 mm[Hg]Ashu Mittal MD Work Phone: [phone]09-12-2023 15:50-0400Diastolic blood fbciopvp20 mm[Hg]Ashu Mittal MD Work Phone: [phone]09-12-2023 15:50-0400Heart rate63 /min Ashu Mittal MD Work Phone: [phone]09-12-2023 15:50-0400Respiratory rate 18 /minAshu Mittal MD Work Phone: [phone]09-12-2023 15:50-7799OaE0% (BldA) [Mass fraction]97 %Ashu Mittal MD Work Phone: [phone]09-12-2023 15:50-0400Systolic blood irhcreit555 mm[Hg]Ashu Mittal MD Work Phone: [phone]09-12-2023 15:19-0400Body temperature 97.11 [degF]Ashu Mittal MD Work Phone: [facility]09-12-2023 13:34-0400Body juumhy641.1 Crissy Mittal MD Work Phone: [facility]09-12-2023 13:34-0400Body vucirp80.72 kgAshu Mittal MD Work Phone: [facility]08-04-2023 08:23-0400Body iighee065.1 Jie Enriquez MD Work Phone: [facility]08-04-2023 08:23-0400Body temperature 97.59 [degF]Ana Enriquez MD Work Phone: [facility]08-04-2023 08:23-0400Body ajbglv43.08 Licha Enriquez MD Work Phone: [facility]08-04-2023 08:23-0400Diastolic blood dsjrwsee37 mm[Hg]Ana Enriquez MD Work Phone: [facility]08-04-2023 08:23-0400Heart rate70 /min Ana Enriquez MD Work Phone: [facility]08-04-2023 08:23-0400Respiratory rate 16 /minAna Enriquze MD Work Phone: [facility]08-04-2023 08:23-0210LfS8% (BldA) [Mass fraction]97 %Ana Enriquez MD Work Phone: [facility]08-04-2023 08:23-0400Systolic blood madixhrq264 mm[Hg]Ana Enriquez MD Work Phone: [facility]07-10-2023 09:22-0400Body kkunmn104.1 Kimber Barton MD Work Phone: [facility]07-10-2023 09:22-0400Body temperature 98.01 [degF]Jamari Barton MD Work Phone: [facility]07-10-2023 09:22-0400Body vpeytt30.81 kgJamari Barton MD Work Phone: [facility]07-10-2023 09:22-0400Diastolic blood wornkfrz26 mm[Hg]Jamari Barton MD Work Phone: [facility]07-10-2023 09:22-0400Heart rate62 /min Jamari Barton MD Work Phone: [facility]07-10-2023 09:22-0400Systolic blood vikqeusz234 mm[Hg]Jamari Barton MD Work Phone: [facility]06-02-2023 11:03-0400Body temperature 97.7 [degF]Theron Harris MD Work Phone: [phone] VA Medical CenterHlghaz58-38-9256 11:03-0400Body effnmt50.17 kgDalandon Harris MD Work Phone: [phone] VA Medical CenterVvhkgu63-30-4056 11:03-0400Diastolic blood yoiowvgz57 mm[Hg]Theron Harris MD Work Phone: [phone] VA Medical CenterJawbqc87-99-6947 11:03-0400Heart rate64 /min Theron Harris MD Work Phone: [phone] VA Medical CenterYmjlst71-55-6609 11:03-0400Respiratory rate 20 /minDcruz Harris MD Work Phone: [phone] VA Medical CenterNlyijo34-44-5278 11:03-7338HmJ8% (BldA) [Mass fraction]96 %Theron Harris MD Work Phone: [phone] VA Medical CenterIvtfom15-08-9287 11:03-0400Systolic blood lsvyedeq393 mm[Hg]Theron Harris MD Work Phone: [phone] VA Medical CenterSkzckz59-63-7194 08:00-0400Body temperature 97.9 [degF]DO Renaldo Barton Work Phone: [facility]04-19-2023 08:00-0400 Diastolic blood miwnvchn30 mm[Hg]DO Renaldo Barton Work Phone: [phone]04-19-2023 08:00-0400 Heart rate58 /minDHao Barton Work Phone: [phone] [place], [place] 7577304-19-2023 08:00-0400 Respiratory rate14 /minDO Renaldo Barton Work Phone: [phone])[address] [place], [place] 7577304-19-2023 08:00-0400 SaO2% (BldA) [Mass fraction]96 %DO Renaldo Barton Work Phone: [phone])[address] [place], [place] 7577304-19-2023 08:00-0400 Systolic blood vidglknv311 mm[Hg]DO Renaldo Barton Work Phone: [phone] [place], [place] 7577304-19-2023 06:52-0400 Body jezdpq53.4 kgDO Renaldo Barton Work Phone: [phone])[address] [place], [place] 7577304-18-2023 16:11-0400 Body bghvub208.1 cmDO Renaldo Barton Work Phone: [phone] [place], [place] 7577304-16-2023 14:06-0400 Diastolic blood aeguszyx61 mm[Hg]DO Renaldo Barton Work Phone: 1(543)[address] [place], [place] 7577304-16-2023 14:06-0400 Heart rate96 /Romeo Barton Work Phone: [phone])[address] [place], [place] 7577304-16-2023 14:06-0400 Respiratory rate18 /Romeo Barton Work Phone: [phone])[address] [place], [place] 7577304-16-2023 14:06-0400 SaO2% (BldA) [Mass fraction]97 %DO Renaldo Barton Work Phone: [phone])[address] [place], [place] 7577304-16-2023 14:06-0400 Systolic blood iukicoht811 mm[Hg]DO Renaldo Sánchezley Work Phone: [phone] [place], [place] 7577304-16-2023 13:31-0400 Body .8 [degF]DO Renaldo Sánchezley Work Phone: [facility]04-16-2023 10:35-0400 Body eamkjf415.1 cmDO Renaldo Barton Work Phone: [facility]04-16-2023 10:35-0400 Body lufnrj86.33 kgDO Renaldo Barton Work Phone: [facility]01-20-2023 19:46-0500 Diastolic blood vrjencla38 mm[Hg]DO Jignesh Trinidad Work Phone: 1([phone])712-[address] [place], [place] 5025201-20-2023 19:46-0500 Heart rate77 /minDHao Trinidad Work Phone: [phone])5-[address] [place], [place] 5025201-20-2023 19:46-0500 Respiratory rate16 /minDHao Trinidad Work Phone: [phone])[address] [place], [place] 0602401-20-2023 19:46-0500 SaO2% (BldA) [Mass fraction]96 %DO Jignesh Trinidad Work Phone: [phone]01-20-2023 19:46-0500 Systolic blood zaolylia789 mm[Hg]DO Jignesh House Work Phone: 1(171)9-[address] [place], [place] 5025201-20-2023 15:19-0500 Body bzqyzr511.1 cmDO Jignesh Trinidad Work Phone: 1(673)5-[address] [place], [place] 5025201-20-2023 15:19-0500 Body vjdjtyspiiz55 [degF]DO Jignesh Trinidad Work Phone: 1(421)0-[address] [place], [place] 5025201-20-2023 15:19-0500 Body wlpeyh35.6 kgDO Jignesh Trinidad Work Phone: [phone])420-[address] [place], [place] 5025211-15-2022 17:30-0500 Body etlehi807.1 cmTsariahshamar áSnchezley Other [facility] [employer] Other 11-15-2022 17:30-0500Body mass index (BMI) [Ratio] 34.94 kg/f7Whljgnela Barton Other [employer] Other 11-15-2022 17:30-0500Body osnsch76.26 kgRenaldo Barton Other [employer] Other 11-15-2022 17:30-0500Diastolic blood cbxpyrxq64 mm[Hg] Renaldo Sánchezley Other [employer] Other 11-15-2022 17:30-0500Respiratory rate20 /minRenaldo Barton Other [employer] Other 11-15-2022 17:30-7434JzT7% (BldA) [Mass fraction]98 % Renaldo S[facility]chezley Other [facility] Other 11-15-2022 17:30-0500Systolic blood adpsmdko717 mm[Hg] Renaldo Sánchezley Other [employer] Other 11-10-2022 10:45-0500Body .1 cmTondra Melquiades Other [facility] [employer] Other 11-10-2022 10:45-0500Body mass index (BMI) [Ratio] 35.27 kg/g4Zwzcsy [employer] Other [employer] Other 11-10-2022 10:45-0500Body rysxna46.16 kgTondra Mapus Other [employer] Other 11-10-2022 10:45-0500Diastolic blood mm[Hg] Tondra Mapus Other [employer] Other 11-10-2022 10:45-0500Respiratory rate20 /minTondra Mapus Other [employer] Other 11-10-2022 10:45-4487AwY1% (BldA) [Mass fraction]100 % Tondra Mapus Other [employer] Other 11-10-2022 10:45-0500Systolic blood qeegccta426 mm[Hg] Tondra Mapus Other [employer] Other 08-01-2022 12:00-0400Body rzfabo352.1 cmTondra Mapus Other [employer] Other 08-01-2022 12:00-0400Body mass index (BMI) [Ratio] 36.61 kg/w5Aobqjx [employer] Other [employer] Other 08-01-2022 12:00-0400Body kolken41.79 kgTondra Mapus Other [employer] Other 08-01-2022 12:00-0400Diastolic blood ojpintrh60 mm[Hg] Tondra Mapus Other [employer] Other 08-01-2022 12:00-0400Respiratory rate20 /minTondra Mapus Other [employer] Other 08-01-2022 12:00-3960AxJ4% (BldA) [Mass fraction]97 % Tondra Mapus Other [employer] Other 08-01-2022 12:00-0400Systolic blood jdqgvsvo953 mm[Hg] Ludy Arnett Other [employer] Other 07-21-2022 13:04-0400Body xqfbef413.1 Crissy Mittal MD Work Phone: [facility]07-21-2022 13:04-0400Body caaach225.42 kgAshu Mittal MD Work Phone: [facility]07-21-2022 13:04-0400Diastolic blood jhyjtmmk40 mm[Hg]Ashu Mittal MD Work Phone: [facility]07-21-2022 13:04-0400Heart rate77 /min Ashu Mittal MD Work Phone: [facility]07-21-2022 13:04-3060MaY9% (BldA) [Mass fraction]96 %Ashu Mittal MD Work Phone: [facility]07-21-2022 13:04-0400Systolic blood hvvjwviy379 mm[Hg]Ashu Mittal MD Work Phone: [facility]07-15-2022 10:00-0400Body .1 Shay Barton Other [employer] Other 07-15-2022 10:00-0400Body mass index (BMI) [Ratio] 37.44 kg/k8SrzvwkRenaldo Barton Other [facility] [employer] Other 07-15-2022 10:00-0400Body zyfvswkgjmu31.3 [degF]Renaldo Barton Other [employer] Other 07-15-2022 10:00-0400Body aeeyrv364.06 kgNilsaela Pedro Other [employer] Other 07-15-2022 10:00-0400Diastolic blood uqkxfyym04 mm[Hg] Renaldo Barton Other [facility] [employer] Other 07-15-2022 10:00-0400Respiratory rate20 /minRenaldo Barton Other [facility] [employer] Other 07-15-2022 10:00-0161WiF9% (BldA) [Mass fraction]97 % Renaldo Barton Other [facility] [employer] Other 07-15-2022 10:00-0400Systolic blood pnoigsrk843 mm[Hg] Renaldo Barton Other [facility] [employer] Other 06-28-2022 11:32-0400Body dhpbsmxjzwy36.7 [degF]Theron Harris MD Work Phone: [phone] VA Medical CenterUpidst65-18-7380 11:32-0400Body nijbea544.15 kgDalandon Harris MD Work Phone: [phone] VA Medical CenterZdqpgf00-52-6088 11:32-0400Diastolic blood cxgjugip00 mm[Hg]Theron Harris MD Work Phone: [phone] Memorial HospitalYcxhnh43-20-5559 11:32-0400Heart rate72 /min Theron Harris MD Work Phone: [phone] VA Medical CenterJazoaf66-78-0486 11:32-0400Respiratory rate 15 /minDcruz Harris MD Work Phone: [phone] Jpvxjh88-27-7563 11:32-3086LlM4% (BldA) [Mass fraction]98 %Theron Harris MD Work Phone: [phone] Picvjz46-78-7555 11:32-0400Systolic blood evzjqwca815 mm[Hg]Theron Harris MD Work Phone: [phone] VA Medical CenterWwoluh82-53-3547 14:16-0400Body iqqndt598.1 cmCalfredo Portilloia Work Phone: 1([phone] [place], [place] 2077206-14-2022 14:16-0400 Body mass index (BMI) [Ratio]41.1 kg/e5XbjssvoqqPlacido Almontewalia Work Phone: 1([phone] [place], [place] 2077206-14-2022 14:16-0400 Body jinjtvsbuwv36.1 [degF]Placido Almontewalia Work Phone: [phone])[address] [place], [place] 2077206-14-2022 14:16-0400 Body ywvcmc493.03 kgPlacido Portilloia Work Phone: [address] [place], [place] 2077206-14-2022 14:16-0400 Diastolic blood ginfgppo02 mm[Hg]Placido Almontewalia Work Phone: 1(728)[address] [place], [place] 2077206-14-2022 14:16-0400 Heart rate82 /minPlacido Almontewalia Work Phone: [phone])[address] [place], [place] 2077206-14-2022 14:16-0400 Respiratory rate16 /minPlacido Portilloia Work Phone: [phone])[address] [place], [place] 2077206-14-2022 14:16-0400 SaO2% (BldA) [Mass fraction]97 %Placido Almontewalia Work Phone: [phone])[address] [place], [place] 2077206-14-2022 14:16-0400 Systolic blood mcycecjn157 mm[Hg]Placido Almontewalia Work Phone: [phone] [place], [place] 2077205-27-2022 13:26-0400 Body xdzmwi319.1 cmTheron Harris MD Work Phone: [facility]velE[facility] HospitalZidjzb06-14-3806 13:26-0400Body temperature 97.39 [degF]Theron Harris MD Work Phone: cChillicothe [facility] Medical CenterMfthml57-15-9959 13:26-0400Body yqvpnc272.77 kgDalandon Harris MD Work Phone: [phone] VA Medical CenterCeiyxy35-54-2694 13:26-0400Diastolic blood dmdibype82 mm[Hg]Theron Harris MD Work Phone: [phone] VA Medical CenterSmnynx96-46-5572 13:26-0400Heart rate59 /min Theron Harris MD Work Phone: [phone] VA Medical CenterMacegs80-42-6943 13:26-0400Systolic blood mm[Hg]Theron Harris MD Work Phone: [phone] VA Medical CenterDequtb64-23-8892 11:10-0400Body .1 cmPacc 5 Work Phone: [phone]05-27-2022 11:10-0400Body temperature 97.39 [degF]Pacc 5 Work Phone: [phone]05-27-2022 11:10-0400Body hsliee296.86 kgPacc 5 Work Phone: [phone]05-27-2022 11:10-0400Diastolic blood rlvzhidz59 mm[Hg]Pacc 5 Work Phone: [phone]05-27-2022 11:10-0400Heart rate59 /min Pacc 5 Work Phone: [phone] [address]-27-2022 11:10-4132UqI3% (BldA) [Mass fraction]100 %Pacc 5 Work Phone: [phone] [address]-27-2022 11:10-0400Systolic blood heewxuwe720 mm[Hg]Pacc 5 Work Phone: [phone]05-06-2022 15:29-0400Body xxxolw669.1 cmDalandon Harris MD Work Phone: [phone] VA Medical CenterIcjbiy56-34-2133 15:29-0400Body temperature 97.81 [degF]Theron Harris MD Work Phone: [place] Gmwuyr11-45-3945 15:29-0400Body .87 kgDalandon Harris MD Work Phone: [place] Linbqt16-84-4521 15:29-0400Diastolic blood sopevffs55 mm[Hg]Theron Harris MD Work Phone: [place] Ejejvs80-81-8609 15:29-0400Heart rate84 /min Theron Harris MD Work Phone: [place] Lsbqmf66-23-2980 15:29-0400Systolic blood mm[Hg]Theron Harris MD Work Phone: [place] Zwalsh39-64-0868 12:10-0400Body mqnhan491.1 cmAmbshant Aguirre Other [place] [employer] Other 05-01-2022 12:10-0400Body mass index (BMI) [Ratio] 37.44 kg/c8KbzwuBobbi Aguirre Other [employer] Other 05-01-2022 12:10-0400Body nhcbaukdqaq84.1 [degF]Bobbi Aguirre Other [employer] Other 05-01-2022 12:10-0400Body aycnui750.06 kgBobbi Aguirre Other [employer] Other 05-01-2022 12:10-0400Diastolic blood mm[Hg] Bobbi Aguirre Other [employer] Other 05-01-2022 12:10-0400Respiratory rate18 /minBobbi Aguirre Other [employer] Other 05-01-2022 12:10-3435AcN5% (BldA) [Mass fraction]100 % Bobbi Timothy Other [employer] Other 05-01-2022 12:10-0400Systolic blood wfebzmof132 mm[Hg] Bobbi Timothy Other [facility] [employer] Other 04-28-2022 11:00-0400Diastolic blood fekzfxbl57 mm[Hg] Cayla Jimenez MD Work Phone: [facility]04-28-2022 11:00-0400Heart rate72 /min Cayla Jimenez MD Work Phone: [facility]04-28-2022 11:00-2820JkQ5% (BldA) [Mass fraction]100 %Cayla Jimenez MD Work Phone: [phone]04-28-2022 11:00-0400Systolic blood ldkbunuh300 mm[Hg]Cayla Jimenez MD Work Phone: [facility]04-28-2022 09:00-0400Body temperature 97.7 [degF]Cayla Jimenez MD Work Phone: [facility]04-28-2022 09:00-0400Respiratory rate 16 /minCayla Jimenez MD Work Phone: [facility] Encounters Encounter DateEncounter TypeCare ProviderFacilityStart: 05-18-2025 End: 58-57-0421fsrevhjdwyFMPOMU ROBERT CONLEYFacility:[facility] Start: 04-20-2025 End: 72-18-9113rjfalwzflgXISROQA ADAMOWICZFacility:[facility] Start: 04-10-2025 End: 36-01-6041fwxbbbnupoYLDE QAZIFacility:[facility]art: 03-23-2025 End: 00-27-2651AhgbpnMark Mittal MD Work Phone: GastroenterologyComment on above:Inflammatory arthritis (Primary Dx)Start: 03-13-2025 End: 02-61-1580Wqktby outpatient visit 15 minutesAna Enriquez MD Work Phone: Hematology/OncologyComment on above: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); Iron deficiency anemia secondary to inadequate dietary iron intake; Vitamin B12 deficient megaloblastic anemia; Psoriasis; Iron deficiency; Anemia due to vitamin B12 deficiency, unspecified B12 deficiency type; Status post splenectomyStart: 03-13-2025 End: 28-59-5329gpnkcxqxbrSczea [address] Work Phone: Hematology/OncologyComment on above:Psoriasis (Primary Dx); Crohn's disease of small intestine with complication (HCC)Start: 03-12-2025 End: 34-30-7222MprwgbJzdkvznKacie Wakefield APRN.CNP Work Phone: Digestive Disease InstComment on above:Refill Request Start: 03-06-2025 End: 44-37-2786tngurghdgtPHIZU ABHYANKARFacility:[facility]tart: 03-01-2025 End: 20-55-0413FmpvsrOldtyvbKacie Wakefield APRN.CNP Work Phone: GastroenterologyComment on above:Refill RequestStart: 02-16-2025 End: 73-70-1024arphjsmfzlDotizx Zofia Barton DO Work Phone: [facility] Work Phone: Start: 02-16-2025 End: 69-16-8882Coykppp encounter procedureLudy Arnett [facility] Work Phone: Start: 01-26-2025 End: 89-92-6598Khccrchax encounterTomasa Wakefield APRN.CNP Work Phone: GastroenterologyComment on above:Full Time Babysitter - OtherStart: 01-26-2025 End: 55-52-2920Euqhcczddbew consultation with patientTomasa Wakefield APRN.CNP Work Phone: GastroenterologyStart: 01-26-2025 End: 94-20-7112sdxrjihzcoPyvkgedAj Wakefield APRN.CNP Work Phone: GastroenterologyComment on above:Crohn's disease of small intestine with complication (HCC) (Primary Dx)Start: 01-19-2025 End: 44-40-2622Ufnoslcht encounterAshu Mittal MD Work Phone: GastroenterologyComment on above:Refill RequestStart: 01-14-2025 End: 30-63-1295Wxrmkn-up encounterAshu Mittal MD Work Phone: GastroenterologyStart: 79-04-5681vmvbptpivrVSKA [facility] Facility:[facility] HospitalStart: 01-13-2025 End: 20-45-4427Snwlwbxdfn hospital visit by Zacarias Mittal MD Work Phone: GastroenterologyComment on above:Crohn's disease of small intestine with complication (HCC) [K50.019]Start: 01-06-2025 End: 57-38-5222brupjsdwpcJydxgvt Kelley RNGastroenterologyStart: 12-19-2024 End: 42-01-7465Vtpejq outpatient visit 15 minutesDalandon Harris MD Work Phone: general SurgeryComment on above:Abnormal findings on diagnostic imaging of liver and biliary tract (Primary Dx); IPMN (intraductal papillary mucinous neoplasm)Start: 12-19-2024 End: 65-26-6742anrtzxpzohVNDOOV JOYCEFacility:[facility] HospitalStart: 48-77-1164zzyeerrilwTTCOGF JOYCEFacility:[facility] HospitalStart: 12-11-2024 End: 80-56-0779Ntigqhvleu hospital visit by Irma 4 Radio Main Q (I-Stat/1.5t/3t) Work Phone: MRI QComment on above:Abnormal findings on diagnostic imaging of liver and biliary tract [R93.2]Start: 12-09-2024 End: 89-76-0916qsxkutmhhhSfrelx R Barton DO Work Phone: [facility] Work Phone: Start: 12-09-2024 End: 76-10-8871Sxayygs encounter procedureThomas Barton DO Work Phone: [facility] [place] Work Phone: Start: 17-06-0415Yhq-patient / Non-visitThomas Barton DO Work Phone: [facility] Work Phone: Start: 12-03-2024 End: 58-57-9444Rfgwaempu department patient visitThomas Barton DO Work Phone: [facility] Work Phone: Start: 11-21-2024 End: 83-49-7031SzfbwhLzoen Abhyankar MD Work Phone: Hematology/OncologyComment on above:Refill Request Start: 11-14-2024 End: 53-98-0016Kdlxkfz encounter procedureThomas Barton DO Work Phone: [facility] [place] Work Phone: Start: 11-14-2024 End: 44-56-8218urbhudomhuLxqppj R Barton DO Work Phone: [facility] Work Phone: Start: 11-13-2024 End: 65-43-6909Uqzhgrf encounter procedureThomas Barton DO Work Phone: [facility] [place] Work Phone: Start: 11-13-2024 End: 04-05-0336khamqxssiuOhtoja R Barton DO Work Phone: [facility] Work Phone: Start: 11-04-2024 End: 93-60-8055GwwhmnLpnqvmeTomasa Wakefield APRN.CNP Work Phone: Digestive Disease InstComment on above:Refill Request Start: 11-03-2024 End: 34-87-5550lnxiotueatMwnigr R Barton DO Work Phone: [facility] Work Phone: Start: 11-03-2024 End: 77-22-5918Ltgxcfg encounter procedureThomas Barton DO Work Phone: [facility] Work Phone: Start: 10-13-2024 End: 12-41-2141Ggxscgnmj encounterAshu Mittal MD Work Phone: GastroenterologyComment on above:Medication Problem (Entyvio not covered)Start: 09-30-2024 End: 15-59-6483Byzujckab encounterAshu Mittal MD Work Phone: GastroenterologyComment on above:Patient UpdateStart: 09-19-2024 End: 24-93-3680Hmiyqv-up encounterTomasa Wakefield APRN.CNP Work Phone: GastroenterologyStart: 13-68-7502Pms-patient / Non-visitThomas Barton DO Work Phone: [facility] Work Phone: Start: 09-18-2024 End: 71-75-3775xfzddyttvfJTHRLRXK SINGHFacility:[facility] Hospitaltart: 09-18-2024 End: 58-39-2053Bzjvnalyr encounterTomasa Wakefield APRN.CNP Work Phone: GastroenterologyComment on above:Medication Problem Start: 09-18-2024 End: 90-87-6032Vphvkkn encounter procedureJessica Adamowicz EXECUTIVE KITCHEN MANAGER.SEED SERVICE ADVISOR Work Phone: GastroenterologyComment on above:Crohn's disease of small intestine with complication (HCC) (Primary Dx); Hypothyroidism, unspecified type; Vitamin D deficiencyStart: 09-18-2024 End: 49-35-7546qdpljpvkymWKTKELP ADAMOWICZFacility:[facility] Start: 09-05-2024 End: 50-29-2842kprgcelhtoMRKVR ABHYJAZARFacility:[facility] Hospitaltart: 09-05-2024 End: 29-10-5232Ansirr outpatient visit 25 minutesAna Enriquez MD Work Phone: Hematology/OncologyComment on above: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); Iron deficiency anemia secondary to inadequate dietary iron intake; Vitamin B12 deficient megaloblastic anemia; PsoriasisStart: 29-34-2628Ztp-patient / Non-visitThomas Pedro DO Work Phone: [facility] Work Phone: Start: 08-29-2024 End: 71-56-9304Eihqlap encounter procedureThomas Barton DO Work Phone: [facility] [place] Work Phone: Start: 08-29-2024 End: 79-88-5431ywvdulrytqEfucss R Barton DO Work Phone: [facility] Work Phone: Start: 07-07-2024 End: 03-81-0692Gihyztj encounter procedureThomas Barton DO Work Phone: [facility] Work Phone: Start: 06-26-2024 End: 22-99-6366QlikucSvliyqfKacie Wakefield APRN.SEED SERVICE ADVISOR Work Phone: Digestive Disease InstComment on above:Refill Request Start: 2024 End: 80-56-9966Lhvacnxpf encounterAshu Mittal MD Work Phone: GastroenterologyComment on above:New Prescription Start: 06-19-2024 End: 42-96-2028Mpjbstdoz encounterAshu Mittal MD Work Phone: GastroenterologyComment on above:Patient Question Start: 06-10-2024 End: 54-07-9764Uftjroz encounter Dangelo Barton DO Work Phone: [facility] [place] Work Phone: Start: 06-09-2024 End: 80-05-0994Ahyuqzh encounter procedureRenaldo Barton DO Work Phone: [facility] Work Phone: Start: 05-26-2024 End: 81-12-5030Xdrdzt Corrie Mittal MD Work Phone: GastroenterologyStart: 05-26-2024 End: 95-66-3618DcwlbsThoy Qazi MD Work Phone: GastroenterologyComment on above:Med Change Request Start: 03-06-2024 End: 95-53-9354Nbijdvf encounter procedureDO Renaldo Barton Work Phone: [facility] [place] Work Phone: Start: 03-06-2024 End: 38-38-0123yovncnvcerAL Renaldo Barton Work Phone: [facility] Work Phone: Start: 43-50-4596NzijhtNjjcDelon Saldana MD Work Phone: Digestive Disease InstComment on above:Refill Request Start: 61-96-5466Pajgabmrv encounterYola Hollins RNHematology/OncologyComment on above:Results; AppointmentStart: 01-29-2024 End: 73-01-0051Wfcnbte encounter procedureDO Renaldo Barton Work Phone: [facility] [place] Work Phone: Start: 01-29-2024 End: 29-96-1245eveqmqhvpqHX Renaldo Barton Work Phone: [facility] Work Phone: Start: 62-39-2186Zwv-patient / Non-visitDO Renaldo Barton Work Phone: [facility] Work Phone: Start: 01-10-2024 End: 20-82-4761uyaxhgknteQjyp Qazi MD Work Phone: GastroenterologyComment on above:Crohn's disease of small intestine with complication (HCC) (Primary Dx); Pouchitis (HCC)Start: 01-10-2024 End: 51-69-8205Mieqszutqaon consultation with Gemma Mittal MD Work Phone: GastroenterologyStart: 01-05-2024 End: 62-88-6714Epfbsnj encounter procedureDO Renaldo Barton Work Phone: [facility] Work Phone: Start: 01-05-2024 End: 26-58-9477jhkkltwfdgMBOdalys Barton Work Phone: [facility] Work Phone: Start: 12-27-2023 End: 80-90-3340Xioogilatn hospital visit by Zacarias Mittal MD Work Phone: GastroenterologyComment on above:Pouchitis (HCC) [K91.850]Start: 12-27-2023 End: 36-53-0131cfupkuofcdQX Thomas R Conley Work Phone: [facility] Work Phone: start: 12-27-2023 End: 48-18-8043Amzwmux encounter procedureDO Renaldo Barton Work Phone: [facility] [place] Work Phone: Start: 93-60-9145Wownugwus encounterLiz Ramachandran MA GastroenterologyComment on above:Reminder Call; Education Of Patient/family (LM for 12/27/23 appt )Start: 58-75-3832uykmvkmnahEzesihq Adamowicz APRN.CNP Work Phone: GastroenterologyComment on above:UpdateStart: 30-37-1451A-mail encounter from Robert Wakefield APRN.CNP Work Phone: GastroenterologyStart: 12-11-2023 End: 77-79-0208Chpgwpf encounter procedureDalandon Harris MD Work Phone: general SurgeryComment on above:Abnormal findings on diagnostic imaging of liver and biliary tract (Primary Dx); IPMN (intraductal papillary mucinous neoplasm); Incisional hernia, without obstruction or gangreneStart: 12-05-2023 End: 40-24-4759svlktdxkhkEL Thomas R Conley Work Phone: [facility] Work Phone: Start: 12-05-2023 End: 48-29-8655Iayvizu encounter Mohini Barton Work Phone: [facility] [place] Work Phone: Start: 12-05-2023 End: 26-67-7854Hgdmfga encounter procedureTomasa Wakefield APRN.CNP Work Phone: GastroenterologyComment on above:Crohn's disease of small intestine with complication (HCC) (Primary Dx)Start: 12-05-2023 End: 23-03-7986Dipfdqxwit hospital visit by physicianMri 4 Radio Main Q (I-Stat/1.5t/3t) Work Phone: MRI QComment on above:Abnormal findings on diagnostic imaging of liver and biliary tract [R93.2]Start: 12-03-2023 End: 12-58-1998aeclodufskLW Renaldo Barton Work Phone: [facility] Work Phone: Start: 12-03-2023 End: 92-37-8998Gamqurn encounter procedureDO Renaldo Barton Work Phone: [facility] Work Phone: Start: 11-12-2023 End: 61-81-9852Fmwhknq encounter procedureXiaojeff Bran MD Work Phone: Colorectal SurgeryComment on above:Intestinal obstruction due to stricture of intestine (HCC) (Primary Dx)Start: 11-08-2023 End: 49-63-5736Ghitzd outpatient visit 15 minutesAna Enriquez MD Work Phone: Hematology/OncologyComment on above:Iron deficiency anemia secondary to inadequate dietary iron intake (Primary Dx); Vitamin B12 deficient megaloblastic anemia; Thrombocytosis 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Start: 63-34-1297Jsj-patient / Non-visitDO Renaldo Barton Work Phone: [facility] Work Phone: Start: 78-55-1654W-mail encounter from caregiver Tomasa Wakefield APRN.CNP Work Phone: [facility] MAINStart: 54-55-1156Rcjedb-up encounterTomasa Wakefield APRN.CNP Work Phone: GastroenterologyComment on above:GI Follow UpStart: 37-72-4813Rgi-patient / Non-visitDO Renaldo Barton Work Phone: [facility] Work Phone: Start: 04-01-8789Yza-patient / Non-visitDO Renaldo Barton Work Phone: [facility] Work Phone: Start: 99-41-2471Ywb-patient / Non-visitDO Renaldo Barton Work Phone: [facility] Work Phone: Start: 10-24-2023 End: 00-28-6631Oue-patient / Non-visitDO Renaldo Barton Work Phone: [facility] Work Phone: Start: 10-24-2023 End: 47-41-4843Eazybwudmj and management of inpatientDO Renaldo Barton Work Phone: [facility] [place] Work Phone: Start: 69-02-1323Jcdddgujj Na Mittal MD Work Phone: GastroenterologyComment on above:ResultsStart: 12-65-8052Lei-patient / Non-visitDO Renaldo Barton Work Phone: [facility] Work Phone: Start: 68-26-1881Zvi-patient / Non-visitDO Renaldo Barton Work Phone: [facility] Work Phone: Start: 09-28-2023 End: 81-15-4398cgvvboqgllPxym Qazi MD Work Phone: GastroenterologyComment on above:Pouchitis (HCC) (Primary Dx); Crohn's disease of small intestine with complication (HCC)Start: 09-28-2023 End: 42-02-9524Ivfcqkosxisa consultation with Gemma Mittal MD Work Phone: [facility] MAINStart: 09-05-2023 End: 42-08-0013xtlctgbqfaFQ Renaldo Barton Work Phone: [facility] Work Phone: Start: 09-05-2023 End: 04-84-5293Dlmoosc encounter procedureDO Renaldo Pedro Work Phone: [facility] Work Phone: Start: 08-85-3061Cmd-patient / Non-visitDO Renaldo Barton Work Phone: [facility] [employer] Work Phone: Start: 08-15-2023 End: 61-73-5784Wbkyet outpatient visit 15 minutesnAa Enriquez MD Work Phone: Hematology/OncologyComment on above:Vitamin B12 deficient megaloblastic anemia (Primary Dx); Iron deficiency anemia secondary to inadequate dietary iron intake; Thrombocytosis 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Start: 07-23-2023 End: 17-62-9671qfstqebxehNqhdie Pedro Other [employer] Other Start: 41-00-6352Mgekeeumq encounterThomas PedroFPG Family Medicine [place]kyStart: 07-14-2023 End: 52-55-2243onvbmrxdfqDaks Hahn Other [place] [employer] Other Start: 62-95-3884Leondp outpatient visit 15 minutes Christie Thompson [facility] [place]deStart: 07-14-2023 End: 88-33-4741Ynfddew encounter procedurePlacido Brody Work Phone: [facility] [place] Work Phone: Start: 06-27-2023 End: 35-18-9250sodbthmyziIchvcr Dymond Other [employer] Other start: 96-73-5703Cilsdo outpatient visit 15 minutes Nataliia Oswaldo [facility] ClydeStart: 06-27-2023 End: 00-76-1955Iyylcib encounter procedureCharankin Portilloia Work Phone: [facility] [place] Work Phone: Start: 83-01-2054Phexgyzou encounterRenaldo BartonRobert Family Medicine VondadeweyvilleyStart: 06-19-2023 End: 82-97-1102pacttlyzapXD Renaldo Barton Work Phone: [facility] Work Phone: Start: 06-19-2023 End: 98-78-3590Utwzyhi encounter procedureDO Renaldo Barton Work Phone: [facility] [place] Work Phone: Start: 06-18-2023 End: 04-49-5415mhajongynrYehmrf [employer] Other [employer] Other Start: 03-98-7566Bmvfoqhyf encounterTondra Mapus [facility] Care ClinicStart: 06-05-2023 End: 24-84-2790tljnnbswsfQhiayl Conley Other [employer] Other Start: 33-54-0758Ttqdvw outpatient visit 25 minutes Renaldo BartonRobert Family [facility] GadsdenyStart: 06-05-2023 End: 32-92-0862Jmjhxfu encounter procedureChacierra Brody Work Phone: [facility] [place] Work Phone: Start: 05-24-2023(DM) DiabetesTondra MelquiadesAngel Medical Center Coordinated Care ClinicStart: 05-24-2023 End: 22-41-4807vzhavcflatTanpvw [employer] Other [facility] [employer] Other Start: 57-07-1384Qwpfongjkb RecurringDO Renaldo Barton Work Phone: [facility] Work Phone: Start: 44-47-0795Wedsmumkt encounterMarilee CHAPPELL-Madyson Work Phone: Hematology/OncologyComment on above:ResultsStart: 05-21-2023 End: 91-93-8153akfgmnfupbXlwul M Musser PA-C Work Phone: Hematology/OncologyComment on above: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); Vitamin B12 deficient megaloblastic anemia; Iron deficiency anemia secondary to inadequate dietary iron intake; HyponatremiaStart: 05-21-2023 End: 68-78-7089Enunacv encounter Patty CHAPPELL-Madyson Work Phone: [place]Start: 05-11-2023 End: 32-81-9275Jmxcnjk encounter Mohini Barton Work Phone: [facility] [place] Work Phone: Start: 05-08-2023 End: 30-43-4434mwfaejdjciRletgm Conley Other [facility] [employer] Other Start: 48-52-9129Xacuduznu encounterRenaldo BartonBANNER HEART [facility]OSP[facility] Family Medicine [place]kyStart: 96-31-5999Jkbovxsqx encounterAshu Mittal MD Work Phone: GastroenterologyComment on above:ResultsStart: 04-19-2023 End: 13-19-6637Fqiexnf encounter Dontrell Mittal MD Work Phone: GastroenterologyComment on above:Pouchitis (HCC) (Primary Dx); Crohn's disease of small intestine with complication (HCC)Start: 03-27-2023 End: 51-92-0995Piprod OnlyAshu Mittal MD Work Phone: GastroenterologyComment on above:Crohn's disease of small intestine with complication (HCC) [K50.019]Start: 03-16-2023 End: 05-61-6873xhzlsfuossOI Renaldo Barton Work Phone: [facility] Work Phone: Start: 03-16-2023 End: 46-69-8037Veqmrwp encounter procedureDO Renaldo Barton Work Phone: [facility] [place] Work Phone: Start: 02-16-2023 End: 96-00-5201Ndcaac outpatient visit 25 minutesAna Enriquez MD Work Phone: Hematology/OncologyComment on above: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); Vitamin B12 deficient megaloblastic anemia; Iron deficiency anemia secondary to inadequate dietary iron intakeStart: 01-22-2023 End: 61-61-9732Xaajmvj encounter procedureJamari Barton MD Work Phone: General SurgeryComment on above:Incisional hernia, without obstruction or gangreneStart: 01-18-2023 End: 40-73-1556ilsetezxtjQbnqmq [employer] Other [place] [employer] Other Start: 31-13-8628Iitvylrai encounterTondra MapusBANNER HEART [facility]OS[facility] Family Medicine [place]kyStart: 69-45-8300KxyxwdJeqt Qazi MD Work Phone: GastroenterologyComment on above:ResultsStart: 32-55-4793Dcmzsqxmp encounterAshu Mittal MD Work Phone: GastroenterologyComment on above:Care Coordination Start: 12-25-2022 End: 47-27-5678Mdtczwi encounter Mohini Barton Work Phone: [facility] Work Phone: Start: 46-26-1948Vhlncvoyn encounterDalandon Baker Work Phone: ResearchComment on above:Research F/UStart: 12-15-2022 End: 04-15-3234Tgvntmm encounter procedureDalandon Harris MD Work Phone: general SurgeryComment on above:Obesity, Class I, BMI 30-34.9 (Primary Dx); IPMN (intraductal papillary mucinous neoplasm); Abnormal findings on diagnostic imaging of liver and biliary tract; Incisional hernia, without obstruction or gangreneStart: 12-12-2022 End: 56-20-5346Jzminnqmop hospital visit by [facility] centerM[facility] Radio Main Q (I-Stat/1.5t/3t) Work Phone: MRX QComment on above:Abnormal findings on diagnostic imaging of liver and biliary tract [R93.2]Start: 11-22-2022 End: 84-80-9454krmwxvsskiAP Renaldo Barton Work Phone: [facility] Work Phone: Start: 11-22-2022 End: 06-89-2176Kjzueso encounter procedureDO Renaldo Barton Work Phone: [facility] [place] Work Phone: Start: 11-21-2022 End: 41-48-9434aoccincfizXJ Renaldo Barton Work Phone: [facility] Work Phone: Start: 11-21-2022 End: 89-23-3540Hyjatsy encounter procedureDO Renaldo Barton Work Phone: [facility] [place] Work Phone: Start: 11-02-2022 End: 06-25-1275qqfuexdycdOkykph Conley Other [place] [employer] Other Start: 94-54-0382Peorpdnrl encounterThela SánchezVibra Long Term Acute Care Hospital SanddeweyvilleyStart: 10-29-2022 End: 03-99-1600Snypcqjmek and management of inpatientDO Renaldo Barton Work Phone: [facility] Work Phone: Start: 00-85-8405GjvfrtPvxq Qazi MD Work Phone: GastroenterologyComment on above:Refill RequestStart: 10-05-2022 End: 89-90-1179bzhvaknoyySBZVDBED CULLENFacility:X2Rahgk: 08-23-2022 End: 54-57-4404ndlmiwdzuzFhjowd Conley Other [place] [employer] Other Start: 75-64-3020Hyycejovw encounterThomas PedroMercy Medical CenteryStart: 98-43-9443Olkjskivu encounterAshu Mittal MD Work Phone: GastroenterologyComment on above:Patient UpdateStart: 53-32-9383Lqucjncqd encounterDalandon Harris MD Work Phone: general SurgeryComment on above:AppointmentCare Coordination; Insurance AuthorizationStart: 08-08-2022 End: 68-61-0520kkdrehuyakBuatqem Adamowicz APRN.CNP Work Phone: GastroenterologyComment on above:Pouchitis (HCC) (Primary Dx)Electrolyte drinksStart: 13-07-6700Y-mail encounter from caregiver Tomasa Wakefield APRN.CNP Work Phone: [facility] MAINStart: 08-08-2022 End: 60-84-1075Exocslwkkjfi consultation with patientTomasa Wakefield APRN.CNP Work Phone: [facility] MAINStart: 08-07-2022 End: 61-88-6623bjqmhluasiXO Jignesh Trinidad Work Phone: [facility] Work Phone: Start: 08-07-2022 End: 25-35-6717Axnlgby encounter procedureDO Jignesh Trinidad Work Phone: [facility] [place] Work Phone: Start: 54-11-7759izhcdncralTemn Qazi MD Work Phone: GastroenterologyComment on above:Pouchitis?Start: 08-04-2022 End: 79-40-6875Zowvfiixy department patient visitDO Jignesh Trinidad Work Phone: [facility]-Emergency Room Work Phone: Start: 36-19-7634Qkvdiecty encounterAshu Mittal MD Work Phone: GastroenterologyComment on above:Critical Results Start: 08-04-2022 End: 82-81-4799tgkmjrrdjbST Jignesh Trinidad Work Phone: [facility] Work Phone: Start: 08-04-2022 End: 45-64-0275Mgyzyxv encounter procedureDO Jignesh Trinidad Work Phone: [facility] [place] Work Phone: Start: 08-03-2022 End: 39-05-0992crlkuatvipIbybxd Conley Other [employer] Other Start: 80-93-8115Yaljhzfsy Na Mittal MD Work Phone: GastroenterologyComment on above:DiarrheaStart: 61-28-7592Camwunxal encounterDalandon Baker Work Phone: ResearchComment on above:Research F/UStart: 05-30-2022 End: 40-68-7523awjvsfyowcZbvtcx Barton Other [employer] Other Start: 50-94-7675Ffwbte outpatient visit 15 minutes Renaldo BartonBANNER [facility]ART [facility] Family [facility] GadsdenyStart: 05-25-2022(DM) DiabetesTondra [facility] HospitalusBl[facility] ClinicStart: 05-25-2022 End: 83-51-7167ndvbpkyrjzBhufjm Melquiades Other [facility] [employer] Other Start: 99-09-7374Uypalbsgfh [facility] Work Phone: [facility] Work Phone: Start: 41-60-8074WllimqTtlh Qazi MD Work Phone: GastroenterologyComment on above:Refill RequestStart: 04-18-2022 End: 13-80-4863tmakqtpfpqOphnir Conley Other [employer] Other Start: 98-17-8421Hkhrbivcd encounterRenaldo BartonMercy Medical CenteryStart: 50-03-2156KauygrItzt Qazi MD Work Phone: GastroenterologyComment on above:Opened In ErrorStart: 88-08-7530Erkbhyhfv encounterEmdavid Perez RNGastroenterologyComment on above: AppointmentStart: 05-91-0106Utbhgeybi encounterDanicelestine Baker Work Phone: ResearchComment on above:Research F/UStart: 02-27-2022 Telephone Na Mittal MD Work Phone: GastroenterologyComment on above:DiarrheaStart: 02-17-2022 End: 95-58-5367Pxpoych encounter procedurePlacido Brody Work Phone: [facility]-Lab [place]Start: 02-16-2022 End: 83-40-4024krreqktnpiCwxgxe [employer] Other [place]L[employer] [place] [employer] Other Start: 45-15-6621Zifqsusfb encounterTondra VerousFPG EndocrinologyStart: 02-16-2022 End: 71-18-3292Agycnto encounter procedurePlacido Brody Work Phone: [facility]-Lab [place]Start: 02-13-2022 End: 72-62-4328vsfnwcdoeiXepoyz Mapus Other [facility] [employer] Other Start: 63-85-9889ZQED visit new Aria Arnett [facility] Care [place] Clinictart: 78-84-1010Njhpcbmtta RecurringPlacido Brody Work Phone: [facility] [facility] Start: 02-06-2022 End: 11-94-9988emwxfkpcnvGgstyq Barton Other [facility] [employer] Other Start: 20-55-8195Yjtzshwqj encounterThomas ConleyFPG Family Medicine [facility] Public HospitalyStart: 92-80-3895Pncyxprus encounterAshu Mittal MD Work Phone: GastroenterologyComment on above:ResultsStart: 02-02-2022 End: 12-72-1578Hsfkbrv evaluation of patient and reportDanna Kapoor RN Work Phone: General SurgeryComment on above:Preoperative examination (Primary Dx)Start: 02-02-2022 End: 50-73-3399Ymwwupkwrbtht examination Kvng Kapoor RN Work Phone: General SurgeryStart: 02-02-2022 End: 61-51-8903Aboapzp encounter procedureAshu Mittal MD Work Phone: GastroenterologyComment on above:Pouchitis (HCC) (Primary Dx)Start: 01-27-2022 End: 20-21-1470gmzbehfjvyCafesa Pedro Other [place] [employer] Other Start: 56-29-2359Laitol outpatient visit 25 minutes Renaldo [facility] [place]kyStart: 25-45-5002Mnwfirvax encounter Theron Baker Work Phone: [facility] ResearchComment on above:Research F/UStart: 75-95-9293yzbvdguhthSrfa Qazi MD Work Phone: GastroenterologyComment on above:Check upStart: 30-29-9849Dwmchpgij encounterDanna Kapoor RN Work Phone: General SurgeryComment on above:Patient Update (fmla) Start: 01-10-2022 End: 04-64-2669Ofhtsgq encounter procedureTheron Harris MD Work Phone: general SurgeryComment on above:IPMN (intraductal papillary mucinous neoplasm) (Primary Dx); Abnormal findings on diagnostic imaging of liver and biliary tractStart: 82-71-2214aekcmqzdkhOBTNR Cherri [facility]'s Hospitalcility:U4Haoru: 96-11-8064Iaqndbuzf encounterKody Palacio PA-C Work Phone: General SurgeryComment on above:Returning Patient's Call (Spoke with patient's home pharmacy ([facility]). Left voicemail for pharmacist ramirez stoner verbal order for Novolog as previous Humalog prescription was not covered by patient's insurance. )Returning Patient's Call (refill on insulin)Start: 27-35-0856Dsnpduvxr encounterAshu Mittal MD Work Phone: GastroenterologyComment on above:Medication Question Start: 93-66-6282Ijpprceep encounterChakathy Trinidad Work Phone: [phone] InstituteComment on above:Follow Up Phone Call (Post Discharge F/U attempt made. No answer.)Returning Patient's Call (Insulin and Lovenox)Start: 12-27-2021 End: 36-92-3427Vzsxyhthx department patient visitChacierra Brody Work Phone: [facility] RoomStart: 93-36-1911Wuzskdaxz encounterRaamado Samaniego RN Work Phone: General SurgeryComment on above:Returning Patient's Call (LOVENOX SCRIPT)Returning Patient's Call (lovenox)Start: 12-22-2021 Telephone encounterTheron Harris MD Work Phone: general SurgeryComment on above:Home CareStart: 38-89-3692Gljyrypav encounterDalandon Baker Work Phone: ResearchComment on above:Research F/UStart: 12-13-2021 Telephone encounterValesavanah Waddell Research CoordinatorResearchComment on above:Research F/UStart: 12-09-2021 End: 82-73-8457Wujasim evaluation of patient and reportDanna Montilla RN Work Phone: General SurgeryComment on above:Preoperative examination (Primary Dx)Start: 12-09-2021 End: 30-36-1139Swtvyzt encounter procedureTheron Harris MD Work Phone: general SurgeryComment on above:IPMN (intraductal papillary mucinous neoplasm) (Primary Dx)Start: 12-09-2021 End: 00-65-5053Mzblbdylyenpa examination doneXr Q09SspvvrincGhjws: 12-09-2021 End: 83-12-4102Gstpfdjnqa hospital visit by physicianXr Chest Main T06Dntglmhme Comment on above:Preoperative examination [Z01.818]Start: 12-09-2021 End: 41-33-3887Pvixzipgz to establishmentPa Main 5 Work Phone: [facility] MAINStart: 12-09-2021 End: 62-27-7523iwccdnbarkVxop Main 5 Work Phone: Pre AnesthesiaComment on above:Pre-op evaluation (Primary Dx); IPMN (intraductal papillary mucinous neoplasm); Hypertension, unspecified type; BMI 38.0-38.9,adult; Gastroesophageal reflux disease without esophagitis; Type 2 diabetes mellitus with other specified complication, unspecified whether terminal makeup operator insulin use (HCC); Preoperative examination; Pancreatic cyst; Chronic pain of left kneeStart: 12-09-2021 End: 08-66-6444Bavssupzfzyti examination doneC[facility] Main 5 Work Phone: Pre AnesthesiaStart: 76-21-0564Qqrbrierg encounter Juliette Samaniego RN Work Phone: General SurgeryComment on above:Returning Patient's Call (COVID TEST BEFORE SURGERY)Start: 99-20-7340Tyhvmngfx encounterTheron Harris MD Work Phone: digestive Disease InstComment on above:Future Appointment (patient want to use self-check covid test that she has at home ) Start: 25-69-0894yrkzsicnvwHvjswkyzz Demare MD Work Phone: General SurgeryStart: 11-18-2021 End: 35-04-8453Modatsi encounter procedureTheron Harris MD Work Phone: general SurgeryComment on above:Preoperative examination (Primary Dx); IPMN (intraductal papillary mucinous neoplasm); Pancreatic cystStart: 11-18-2021 End: 63-32-3339Fgdxgawpgalxl examination doneTheron Harris MD Work Phone: generug SurgeryStart: 11-18-2021 End: 87-14-3532Dnrjhnusnu hospital visit by physicianGi Radio Main Qb1 (I-Stat) RadiologyComment on above:IPMN (intraductal papillary mucinous neoplasm) [D49.0] Start: 11-13-2021 End: 06-86-4154kzhomdhzqfVsxyi Keller Other [place] [employer] Other Start: 30-53-9157Zmhkxx outpatient visit 15 minutes [facility] ClydeStart: 11-10-2021 End: 63-96-8053Jtxpocyzxs hospital visit by Sunitha Jimenez MD Work Phone: GastroenterologyComment on above:IPMN (intraductal papillary mucinous neoplasm) [D49.0]Start: 65-86-4940Rrxkuhhwe encounterDejenn Rodriguez RNGastroenterologyComment on above:AppointmentStart: 10-21-2021 ambulatoryTheron Harris MD Work Phone: general SurgeryStart: 34-62-0085Ikopohhec encounter Ashu Mittal MD Work Phone: GastroenterologyComment on above:Insurance AuthorizationStart: 2021 End: 50-07-2993Izenxecort hospital visit by physiciani [facility] [place] (Lg Bore/1.5t)Radiology MRIComment on above:Pancreatic cyst [K86.2]Start: 01-28-2004 Evaluation and management of inpatientChacierra Brody Work Phone: [facility] Ctr[facility] [place] Surgical Procedures DateProcedureProcedure DetailPerforming ClinicianStart: 01-13-2025 End: 04-82-1582Llau bld gluc mntr dev cleared fda spec home useClifton Howard MD Work Phone: Start: 59-75-9191Icpj eval intstinal pouch dx w/collj spec spxMandcara Grier PA-C Work Phone: Start: 52-86-52454w rendering w/interp&postproc diff work stationTheron Harris MD Work Phone: Start: 81-31-3197Sbd abdomen w/o & w/contrast material Theron Harris MD Work Phone: Start: 51-73-6187Aikrjmyxa mammography of bilateral breastsDO Renaldo Barton Work Phone: Start: 12-27-2023 End: 36-82-4665Dnpc bld gluc mntr dev cleared fda spec home useKalee Acosta MD Work Phone: Start: 34-66-5977Qrwz eval intstinal pouch dx w/collj spec Malka Mittal MD Work Phone: Start: 53-94-2512Ntv abdomen w/o & w/contrast material Theron Harris MD Work Phone: Start: 15-57-0134OG of abdomen and pelvis without contrastDO Renaldo Barton Work Phone: Start: 37-80-5542Afzfo cultureDO Renaldo Barton Work Phone: Start: 05-67-7278Dlwg bld gluc mntr dev cleared fda spec home useJuan Lorenzana APRN.PERSONALIZED LIVING MANAGER NURSE Work Phone: Start: 11-93-9301Izqa eval intstinal pouch dx w/collj spec Malka Mittal MD Work Phone: Start: 53-06-0030Pjhc bld gluc mntr dev cleared fda spec home useJuan Lorenzana APRN.PERSONALIZED LIVING MANAGER NURSE Work Phone: Start: 86-62-0439Inkcvidrr mammography of bilateral breastsDO Renaldo Barton Work Phone: Start: 02-65-3716Ctx abdomen w/o & w/contrast material Theron Harris MD Work Phone: Start: 75-68-6543Otsrj culture for bacteria, including anaerobic screenDO Renaldo Barton Work Phone: Start: 85-81-5205Nnoqo cultureDO Renaldo Barton Work Phone: Start: 92-91-3454Dvmscn scan of lower limb veinsDO Renaldo Barton Work Phone: Start: 79-68-1330YAXW-CoV-2, Influenza & RSV (PCR)DO Jignesh Etowah Work Phone: Start: 05-27-6568Guxcdov-tt conj vacc serogroups acwy for im Mauro Kapoor RN Work Phone: Start: 74-84-6169Lgzpenlglq exam chest 2 viewsDalandon Harris MD Work Phone: [phone]: 54-20-3438AVVSWYGBLTKUC GROUP B VACCINE 2 DOSE Theron Harris MD Work Phone: [phone]: 51-43-7439Jwotqtjied exam upr gi trc double contrast studyTheron Harris MD Work Phone: Start: 11-10-2021 End: 44-81-3700Fozgr of amylaseCayla Jimenez MD Work Phone: Start: 15-19-2310Hytgrnelbdf rig transoral hypopharynx crv esophDalandon Harris MD Work Phone: Start: 66-86-2167Nis abdomen w/o & w/contrast material Theron Harris MD Work Phone: H/O splenectomyStatus post splenectomyAna Enriquez MD Work Phone: Plan of Treatment DateCare ActivityDetailAuthorStart: 68-86-1661Wyghsjlm ScreeningDiabetes ScreeningUniversity Hospitals Lake West Medical Centertart: 84-44-5996Uvdxodya ScreeningDiabetes Screening [facility] Centertart: 41-58-1774YNVTKCXZGWSR (3 - PPSV23 if available, else PCV20)PNEUMOCOCCAL (3 - PPSV23 if available, else PCV20)[facility] Centertart: 29-44-5648AHGHMBLTKDIG (3 - PPSV23 or PCV20)PNEUMOCOCCAL (3 - PPSV23 or PCV20) [facility] Centertart: 39-27-0214Lvrpfvbrfuje vaccinationPneumococcal Vaccine (3 of 3 - PPSV23 or PCV20)[facility] Centertart: 52-58-3152Skogguybieeu Vaccine: 50+ (3 of 3 - PCV20 or PCV21)Pneumococcal Vaccine: 50+ (3 of 3 - PCV20 or PCV21) [facility] Centertart: 82-52-0018Mymrgkgtqzbl Vaccine: 50+ (3 of 3 - PPSV23, PCV20 or PCV21)Pneumococcal Vaccine: 50+ (3 of 3 - PPSV23, PCV20 or PCV21) [facility]art: 52-94-5587Bilchfrmtpfe Vaccine: 65+ (3 of 3 - PPSV23 or PCV20)Pneumococcal Vaccine: 65+ (3 of 3 - PPSV23 or PCV20)[facility] Centertart: 49-89-3169Uyefcbbz ScreeningDiabetes ScreeningUniversity Hospitals Lake West Medical Centertart: 10-31-2026 Diabetes ScreeningDiabetes ScreeningUniversity Hospitals Lake West Medical Centertart: 38-49-6619Mibjmuez ScreeningDiabetes ScreeningUniversity Hospitals Lake West Medical Centertart: 71-84-7190Gowhwtrr Screening Diabetes ScreeningUniversity Hospitals Lake West Medical Centertart: 27-22-5177Oocdbgfl ScreeningDiabetes ScreeningUniversity Hospitals Lake West Medical Centertart: 15-66-4007Vsiayvnq ScreeningDiabetes Screening [facility] Centertart: 26-35-1695Axnrdpwu ScreeningDiabetes ScreeningUniversity Hospitals Lake [facility] Medical Centertart: 25-60-8015LQZUIGBM SCREENDIABETES SCREENUniversity Hospitals Lake West Medical Centertart: 07-68-6416Lhyzwbbb ScreeningDiabetes ScreeningUniversity Hospitals Lake West Medical Centertart: 01-05-2026 DIABETES SCREENDIABETES SCREENUniversity Hospitals Lake West Medical Centertart: 08-28-2025 End: 47-81-7018aaygmrndoz26/13/2026 2:00 PM [facility] Hematology/Oncology [address] [place] [address] [place] [address] [facility] Hematology/OncologyComment on above:SkyrizeStart: 08-28-2025 End: 60-85-8560SSV W Auto Differential panel - BloodCOMPLETE BLOOD COUNT AND DIFFERENTIAL Lab Routine 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 Psoriasis Expected: 08/28/2025 (Approximate), Expires: 03/13/2026 [facility] Work Phone: Comment on above:Expected: 08/28/2025 (Approximate), Expires: 03/13/2026Start: 08-28-2025 End: 97-01-3028Jfapnifsh (Vitamin B12) [Mass/volume] in Serum or PlasmaVITAMIN B12 Lab Routine 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 Psoriasis Expected: 08/28/2025 (Approximate), Expires: 03/13/2026 [facility] ClinicComment on above:Expected: 08/28/2025 (Approximate), Expires: 03/13/2026Start: 08-28-2025 End: 36-48-1989Rgnttxujjkpmz metabolic 2000 panel - Serum or PlasmaCOMPREHENSIVE METABOLIC PANEL Lab Routine 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 Psoriasis Expected: 08/28/2025 (Approximate), Expires: 03/13/2026leveland ClinicComment on above:Expected: 08/28/2025 (Approximate), Expires: 03/13/2026Start: 08-28-2025 End: 39-79-8319Pmoedzku [Mass/volume] in Serum or PlasmaFERRITIN Lab Routine 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 Psoriasis Expected: 08/28/2025 (Approximate), Expires: 03/13/2026[place] ClinicComment on above:Expected: 08/28/2025 (Approximate), Expires: 03/13/2026Start: 08-28-2025 End: 73-93-8936Kqdjfl [Mass/volume] in Serum or PlasmaFOLATE, SERUM Lab Routine 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 Psoriasis Expected: 08/28/2025(Approximate), Expires: 03/13/2026[place] ClinicComment on above:Expected: 08/28/2025 (Approximate), Expires: 03/13/2026Start: 08-28-2025 End: 26-98-3363Ffqm and Iron binding capacity panel - Serum or PlasmaIRON AND TIBC Lab Routine 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 Psoriasis Expected: 08/28/2025(Approximate), Expires: 03/13/2026leveland ClinicComment on above:Expected: 08/28/2025 (Approximate), Expires: 03/13/2026 Start: 08-28-2025 End: 69-88-9891Imtxej-up bqbnfawsw14/13/2026 1:40 PM EST Visit (SP) Office Hematology/Oncology [address] [place], [place] [phone] Ana Enriquez MD [address] [place] [place] [address] 24 week follow up, labs 1 week priorHematology/Oncology Comment on above:24 week follow up, labs 1 week priorStart: 08-21-2025 End: 66-17-8696Dtdfebm encounter jyaoliznb49/06/2026 8:15 AM EST Office Visit [facility] Laboratory [address] [place], [place] [address] [address] labNortMcKenzie Memorial Hospital LaboratoryComment on above:labStart: 07-30-2025 End: 62-86-0235Uprlyt-up safcfqcaa79/15/2026 11:20 AM EST [facility] Gastroenterology [address] [phone] Ashu Mittal MD [address] [address] Follow UpGastroenterologyComment on above:Follow UpStart: 05-08-2025 End: 77-23-1055atrbqhojxz04/24/2025 10:00 AM EDT Infusion Center Hematology/Oncology [address] [place] [address] SKY[facility]I Hematology/OncologyComment on above:SKYRIZIStart: 04-10-2025 End: 61-59-0465trhxiyvdeo94/26/2025 10:00 AM EDT Infusion Center Hematology/Oncology [address] [place] [address] SKYRIZI Hematology/OncologyComment on above:SKYRIZIStart: 57-23-4417Cnhqsrmxe vaccinationInfluenza Vaccine (#1)[facility] ClinicStart: 03-13-2025 End: 28-72-3833qiegbgyndxLluhkrrddl/OncologyComment on above:6 month lab6 month lab - pt having Skyrizi infusion appt after thisSKYRIZIStart: 03-06-2025 End: 87-45-1159Vtghnkj encounter qssueekbn90/22/2025 8:45 AM EDT Office Visit [facility] Laboratory [address] [place] [address] 6 month labNortMcKenzie Memorial [facility] Comment on above:6 month labStart: 92-50-7677MYFMMHYX SCREENDIABETES SCREEN [facility]ertart: 01-26-2025 End: 11-70-9286sthlcdrabf06/14/2025 11:30 AM EDT [facility] Gastroenterology [address] [phone] Tomasa Wakefield APRN.SEED SERVICE ADVISOR [address] [place] [address] CrohnsGastroenterologyComment on above:CrohnsStart: 01-13-2025 End: 62-23-1213Mshwikt encounter procedureGastroenterologyComment on above:Dx: Crohn's disease of small intestine with complication (HCC) [K50.019]Start: 76-46-7580HIZVJMUI SCREENDIABETES SCREENUniversity Hospitals Lake West Medical Centertart: 12-21-2024 DIABETES SCREENDIABETES SCREENUniversity Hospitals Lake West Medical Centertart: 12-19-2024 End: 93-70-5870Pbhatal encounter xsgubaybh74/06/2025 4:15 PM EDT Office Visit General Surgery [address] [address] Theron Harris MD [address] [place] [address] [place], [place] [phone] pancreatic cystGeneral SurgeryComment on above:pancreatic cystStart: 12-11-2024 End: 50-28-7086Thopphu encounter wxpnhcjku37/29/2025 10:30 AM EDT Appointment MRI Q [address] [place] [address] Abnormal findings on diagnostic imaging of liver and biliary tract [R93.2]MRI QComment on above: Abnormal findings on diagnostic imaging of liver and biliary tract [R93.2]Start: 03-44-9579QYBTNTMF SCREENDIABETES SCREENUniversity Hospitals Lake West Medical Centertart: 56-76-6889AS Controlled (<130/80)BP Controlled (<130/80)[facility] Centertart: 11-16-2024 Covid-19 Vaccine ( season)Covid-19 Vaccine () [facility]: 36-76-5707Unctk-19 Vaccine (6 - Pfizer risk )Covid-19 Vaccine (6 - Pfizer risk )[facility] Centertart: 93-38-3358Cikjrik C-peptide measurementOhioHealthtart: 72-73-7880ZQGSGSXV SCREENDIABETES SCREENUniversity Hospitals Lake West Medical Centertart: 08-29-2024 [facility]alt[facility]art: 08-04-2024 End: 12-15-1842lwsgmwcmukLqyonxssfs/OncologyComment on above:6 months return visitStart: 07-31-2024 End: 65-63-4105VVM W Auto Differential panel - BloodCOMPLETE BLOOD COUNT AND DIFFERENTIAL Lab Routine 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 Expected: 07/31/2024 (Approximate), Expires: 01/28/2025[facility] Work Phone: Comment on above:Expected: 07/31/2024 (Approximate), Expires: 01/28/2025Start: 07-31-2024 End: 42-23-6575Wflqfdkfg (Vitamin B12) [Mass/volume] in Serum or PlasmaVITAMIN B12 Lab Routine 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 Expected: 07/31/2024 (Approximate), Expires: 01/28/2025[facility] CenterComment on above:Expected: 07/31/2024 (Approximate), Expires: 01/28/2025Start: 07-31-2024 End: 44-55-4441Szqmkpkmbokve metabolic 2000 panel - Serum or PlasmaCOMPREHENSIVE METABOLIC PANEL Lab Routine 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 Expected: 07/31/2024 (Approximate), Expires: 01/28/2025[place] ClinicComment on above:Expected: 07/31/2024 (Approximate), Expires: 01/28/2025Start: 07-31-2024 End: 19-79-7860Qnrzvtbr [Mass/volume] in Serum or PlasmaFERRITIN Lab Routine Iron deficiency anemia secondary to inadequate dietary iron intake Thrombocytos is 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 Expected: 07/31/2024 (Approximate), Expires: 01/28/2025 [place] ClinicComment on above:Expected: 07/31/2024 (Approximate), Expires: 01/28/2025Start: 07-31-2024 End: 91-39-6130Ogqusp [Mass/volume] in Serum or PlasmaFOLATE, SERUM Lab Routine 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 Expected: 07/31/2024 (Approximate), Expires: 01/28/2025[place] ClinicComment on above:Expected: 07/31/2024 (Approximate), Expires: 01/28/2025Start: 07-31-2024 End: 56-94-4524Mirk and Iron binding capacity panel - Serum or PlasmaIRON AND TIBC Lab Routine 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 Expected: 07/31/2024 (Approximate), Expires: 01/28/2025[place] ClinicComment on above:Expected: 07/31/2024 (Approximate), Expires: 01/28/2025Start: 07-28-2024 End: 41-04-9112Zsapwnp encounter xdqolbrsu02/13/2025 8:00 AM EST Office Visit [facility] Laboratory [address] [place] [address] labNortMcKenzie Memorial Hospital LaboratoryComment on above:labStart: 07-23-2024 End: 56-44-1443Zjnywem encounter kyodqphxt40/08/2025 4:30 PM EST Office Visit Gastroenterology [address] [address] Ashu Mittal MD [address] [place] [address] Crohns Follow upGastroenterologyComment on above:Crohns Follow upStart: 15-70-1475Alvystn Directive DiscussionAdvance Directive DiscussionUniversity Hospitals Lake West Medical Centertart: 16-26-3750Ltqsmui Directive DiscussionAdvance Directive Discussion [facility] Centertart: 36-14-9535Ggqtludyh for osteoporosisBone Density ScreeningUniversity Hospitals Lake West Medical Centertart: 06-19-2024 End: 69-87-3979Qqgvmon encounter oshsdjmim06/05/2024 4:00 PM EST Office Visit Gastroenterology [address] [address] Ashu Mittal MD [address] [place] [address] Crohns Follow UpGastroenterologyComment on above:Crohns Follow UpStart: 12-01-2024Medicare Annual Wellness VisitMedicare Annual Wellness VisitUniversity Hospitals Lake West Medical Centertart: 75-43-8215Hkvto-19 Vaccine ( season)Covid-19 Vaccine ( season)[facility] Centertart: 38-08-0308Hvflfunfk vaccinationInfluenza Vaccine (#1)[facility] Centertart: 16-54-0906TphjgcwosOhio State Health System Start: 20-71-7648LL CONTROLLED (<130/80)BP CONTROLLED (<130/80)[facility] Start: 01-31-2024 End: 27-25-4709Yhkhik-up slqytjwjg62/18/2024 8:45 AM EDT Visit (SP) Office Hematology/Oncology [address] [place] [address] [address] [place], [place] [phone] Ana Enriquez MD [address] [place] [address] [place] [address] 12 week follow upHematology/OncologyComment on above:12 week follow upStart: 01-24-2024 End: 50-07-6053UUR W Auto Differential panel - BloodCOMPLETE BLOOD COUNT AND DIFFERENTIAL Lab Routine 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 Expected: 01/24/2024 (Approximate), Expires: 11/07/2024[facility] Work Phone: Comment on above:Expected: 01/24/2024 (Approximate), Expires: 11/07/2024Start: 01-24-2024 End: 76-57-9461Mbeesbtml (Vitamin B12) [Mass/volume] in Serum or PlasmaVITAMIN B12 Lab Routine 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 Expected: 01/24/2024 (Approximate), Expires: 11/07/2024levelformerly [facility] ClinicComment on above:Expected: 01/24/2024 (Approximate), Expires: 11/07/2024 Start: 01-24-2024 End: 85-92-1911Fulccusdxyzug metabolic 2000 panel - Serum or PlasmaCOMPREHENSIVE METABOLIC PANEL Lab Routine 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 Expected: 01/24/2024 (Approximate), Expires: 11/07/2024 [facility] Medical CenterComment on above:Expected: 01/24/2024 (Approximate), Expires: 11/07/2024Start: 01-24-2024 End: 66-88-5729Bgejvpjj [Mass/volume] in Serum or PlasmaFERRITIN Lab Routine 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 Expected: 01/24/2024 (Approximate),Expires: 11/07/2024[facility] ClinicComment on above: Expected: 01/24/2024 (Approximate), Expires: 11/07/2024Start: 01-24-2024 End: 73-62-8502Scjjyp [Mass/volume] in Serum or PlasmaFOLATE, SERUM Lab Routine 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 Expected: 01/24/2024 (Approximate), Expires: 11/07/2024[place] ClinicComment on above: Expected: 01/24/2024 (Approximate), Expires: 11/07/2024Start: 01-24-2024 End: 41-33-0796Mvms and Iron binding capacity panel - Serum or PlasmaIRON AND TIBC Lab Routine 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 Expected: 01/24/2024 (Approximate), Expires: 11/07/2024[place] ClinicComment on above:Expected: 01/24/2024 (Approximate), Expires: 11/07/2024 Start: 01-24-2024 End: 10-91-3752Phlcogf encounter ovgtoseph20/11/2024 8:15 AM EDT Office Visit [facility] Laboratory [address] [place] [address] 11 week labNortMcKenzie Memorial [facility] Comment on above:11 week labStart: 31-22-8123VZ CONTROLLED (<130/80)BP CONTROLLED (<130/80)[facility]: 01-10-2024 End: 37-30-6081Jibxyk-up ochnpywwh70/27/2024 11:00 AM EDT [facility] [address] [phone] Ashu Mittal MD [address] [id number] follow up from procedureGastroenterologyComment on above:follow up from procedureStart: 73-54-6998BS Breast - bilateral ScreeningOhioHealthtart: 62-10-3531Lzlfaufxl mammography of bilateral breastsMM screening mammo BI w/CADOhioHealthtart: 12-27-2023 End: 80-54-7532Orbngyp encounter dioobajsc70/13/2024 1:00 PM EDT Appointment Gastroenterology [address] [phone] Ashu Mittal MD [address] [place] [address] Pouchitis (HCC) [K91.850]GastroenterologyComment on above:Pouchitis (HCC) [K91.850]Start: 12-73-6949RJ CONTROLLED (<130/80)BP CONTROLLED (<130/80) [facility]: 12-16-2023 End: 81-46-6857Wak abdomen w/o & w/contrast materialMRI PANC/ROSE MARIE WO/W IVCON Radiology Routine Abnormal findings on diagnostic imaging of liver and biliary tract Expected: 12/16/2023, Expires: 01/14/2024[facility] Work Phone: comment on above:Expected: 12/16/2023, Expires: 01/14/2024Start: 12-11-2023 End: 50-30-1349Lvzfjgj encounter sempimnww27/28/2024 10:00 AM EDT Office Visit General Surgery [address] [place] [address] Theron Harris MD [address] [facility] [address] [place] [address] mri f/uGeneral SurgeryComment on above:mri f/uStart: 12-05-2023 End: 36-36-7764HMWJI TB SCREENBLOOD TB SCREEN Lab Routine Crohn's disease of small intestine with complication (HCC) Expected: 12/05/2023, Expires: 03/05/2024[facility]:Expected: 12/05/2023, Expires: 03/05/2024Start: 12-05-2023 End: 03-05-2024 reactive protein [Mass/volume] in Serum or PlasmaC-REACTIVE PROTEIN Lab Routine Crohn's disease of small intestine with complication (HCC) Expected:12/05/2023, Expires: 03/05/2024[facility] Work Phone: Comment on above:Expected: 12/05/2023, Expires: 03/05/2024Start: 12-05-2023 End: 45-58-9789Dpvrjnq encounter /22/2024 12:30 PM EDT Office Visit Gastroenterology [address] [place] [phone] Tomasa Wakefield APRN.SEED SERVICE ADVISOR [address] [place] [phone] follow upGastroenterologyComment on above:follow up Start: 12-05-2023 End: 67-28-8341Eycszvj encounter yotilohvb49/22/2024 9:10 AM EDT Appointment MRI Q [address] [address] MRI PANC/ROSE MARIE WO/W IVCONMRI QComment on above:MRI PANC/ROSE MARIE WO/W IVCONStart: 11-12-2023 End: 03-65-9523Agptfmv encounter bvsgabxar98/29/2024 9:15 AM EDT Office Visit Colorectal Surgery [address] [place] [phone] Joann Bran MD [address] [place] [phone] Blayne Donis MD [address] [place] [phone] Boo Hester MD, PhD [address] [place] [facility]. 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 Expected: 10/31/2023 (Approximate), Expires: 08/15/2024[facility] Work Phone: Comment on above:Expected: 10/31/2023 (Approximate), Expires: 08/15/2024Start: 10-31-2023 End: 00-78-7705Yjdhonlkw (Vitamin B12) [Mass/volume] in Serum or PlasmaVITAMIN B12 BLOOD Lab Routine 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 Expected: 10/31/2023 (Approximate), Expires: 08/15/2024[facility] Work Phone: Comment on above:Expected: 10/31/2023 (Approximate), Expires: 08/15/2024Start: 10-31-2023 End: 06-25-5691Hrylaqatwcvfv metabolic 2000 panel - Serum or PlasmaCOMP METABOLIC PANEL Lab Routine 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 Expected: 10/31/2023 (Approximate), Expires: 08/15/2024 [facility] Work Phone: Comment on above:Expected: 10/31/2023 (Approximate), Expires: 08/15/2024Start: 10-31-2023 End: 92-90-0683Ysmcmlzg [Mass/volume] in Serum or PlasmaFERRITIN BLD Lab Routine 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 Expected: 10/31/2023 (Approximate), Expires: 08/15/2024[facility] Work Phone: Comment on above:Expected: 10/31/2023 (Approximate), Expires: 08/15/2024Start: 10-31-2023 End: 55-65-2679Wunsgv [Mass/volume] in Serum or PlasmaFOLATE SERUM Lab Routine 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 Expected: 10/31/2023 (Approximate), Expires: 08/15/2024[facility] Work Phone: Comment on above:Expected: 10/31/2023 (Approximate), Expires: 08/15/2024Start: 10-31-2023 End: 34-53-8735Opfb and Iron binding capacity panel - Serum or PlasmaIRON + TIBC Lab Routine Vitamin B12 deficient megaloblastic anemia Iron deficiency anemia secondaryto inadequate dietary iron intake Thrombocytosis 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 Expected: 10/31/2023 (Approximate), Expires: 08/15/2024[facility] Work Phone: Comment on above:Expected: 10/31/2023 (Approximate), Expires: 08/15/2024Start: 53-10-0560SvnvoeapyOhioHealthtart: 10-25-2023 End: 30-72-8943WamyytriyOhioHealthtart: 40-58-2288MqiyfoxctOhioHealthtart: 15-14-0018Mdzybdtb admissionOhioHealthtart: 07-19-3318VdxjelwapOhioHealthtart: 03-33-8412IK Abdomen and Pelvis WO contrastOhio State Health System Start: 94-42-8223SY of abdomen and pelvis without contrastCT abdomen pelvis wo [facility] Hospitaltart: 75-42-1356Mpkqnkqz identified in Urine by CultureOhioHealthtart: 09-28-2023 End: 12-28-2023 reactive protein [Mass/volume] in Serum or PlasmaC-REACTIVE PROTEIN (CRP) Lab Routine Pouchitis (HCC) Expected: 09/28/2023, Expires: 12/28/2023[facility] Work Phone: Comment on above:Expected: 09/28/2023, Expires: 12/28/2023Start: 09-28-2023 End: 44-41-7026EMK W Auto Differential panel - BloodCBC + DIFF Lab Routine Pouchitis (HCC) Expected: 09/28/2023, Expires: 12/28/2023[facility] Work Phone: Comment on above:Expected: 09/28/2023, Expires: 12/28/2023Start: 09-28-2023 End: 31-62-8458Eukcrbjxrdhfp metabolic 1999 panel - Serum or PlasmaCOMP METABOLIC PANEL Lab Routine Pouchitis (HCC) Expected: 09/28/2023, Expires: 12/28/2023[facility] Work Phone: Comment on above:Expected: 09/28/2023, Expires: 12/28/2023Start: 08-21-2023 End: 85-26-8348QKS W Auto Differential panel - BloodCBC + DIFF Lab Routine 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 Expected: 08/21/2023 (Approximate), Expires: 11/20/2023[facility] Work Phone: Comment on above:Expected: 08/21/2023 (Approximate), Expires: 11/20/2023Start: 08-21-2023 End: 97-37-1336Uhcnvnjby (Vitamin B12) [Mass/volume] in Serum or PlasmaVITAMIN B12 BLOOD Lab Routine 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 Expected: 08/21/2023 (Approximate), Expires: 11/20/2023[facility] Work Phone: Comment on above:Expected: 08/21/2023 (Approximate), Expires: 11/20/2023Start: 08-21-2023 End: 59-93-7481Rmugfdmqhbjfu metabolic 1999 panel - Serum or PlasmaCOMP METABOLIC PANEL Lab Routine 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 Expected: 08/21/2023 (Approximate), Expires: 11/20/2023 [facility] Work Phone: Comment on above:Expected: 08/21/2023 (Approximate), Expires: 11/20/2023Start: 08-21-2023 End: 46-95-3243Mrhyseeb [Mass/volume] in Serum or PlasmaFERRITIN BLD Lab Routine 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 Expected: 08/21/2023 (Approximate), Expires: 11/20/2023[facility] Work Phone: Comment on above:Expected: 08/21/2023 (Approximate), Expires: 11/20/2023Start: 08-21-2023 End: 51-71-7105Mtavww [Mass/volume] in Serum or PlasmaFOLATE SERUM Lab Routine 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 Expected: 08/21/2023 (Approximate), Expires: 11/20/2023[facility] Work Phone: Comment on above:Expected: 08/21/2023 (Approximate), Expires: 11/20/2023Start: 05-19-2023 End: 73-10-9415CXR W Auto Differential panel - BloodCBC + DIFF Lab Routine 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 Expected: 05/19/2023 (Approximate), Expires: 02/17/2024[facility] Work Phone: Comment on above:Expected: 05/19/2023 (Approximate), Expires: 02/17/2024Start: 05-19-2023 End: 27-68-4491Yehumquws (Vitamin B12) [Mass/volume] in Serum or PlasmaVITAMIN B12 BLOOD Lab Routine 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 Expected: 05/19/2023 (Approximate), Expires: 02/17/2024[facility] Work Phone: Comment on above:Expected: 05/19/2023 (Approximate), Expires: 02/17/2024Start: 05-19-2023 End: 57-23-7177Ospoqiqzosspl metabolic 2000 panel - Serum or PlasmaCOMP METABOLIC PANEL Lab Routine 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 Expected: 05/19/2023 (Approximate), Expires: 02/17/2024 [facility] Work Phone: Comment on above:Expected: 05/19/2023 (Approximate), Expires: 02/17/2024Start: 05-19-2023 End: 69-49-6637Rnpbhiav [Mass/volume] in Serum or PlasmaFERRITIN BLD Lab Routine 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 Expected: 05/19/2023 (Approximate), Expires: 02/17/2024[facility] Work Phone: Comment on above:Expected: 05/19/2023 (Approximate), Expires: 02/17/2024Start: 05-19-2023 End: 12-17-7917Eaoizy [Mass/volume] in Serum or PlasmaFOLATE SERUM Lab Routine 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 Expected: 05/19/2023 (Approximate), Expires: 02/17/2024[facility] Work Phone: Comment on above:Expected: 05/19/2023 (Approximate), Expires: 02/17/2024Start: 05-19-2023 End: 84-89-1667Ltcf and Iron binding capacity panel - Serum or PlasmaIRON + TIBC Lab Routine Thrombocytosis 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 Vitamin B12 deficient megaloblastic anemiaIron deficiency anemia secondary to inadequate dietary iron intake Expected: 05/19/2023 (Approximate), Expires: 02/17/2024[facility] Work Phone: Comment on above:Expected: 05/19/2023 (Approximate), Expires: 02/17/2024Start: 61-31-9458Chdtp-19 Vaccine ()Covid- 19 Vaccine ()[facility]: 17-00-9593Cqsaezitp vaccinationUniversity Hospitals Lake West Medical Centertart: 62-76-0758DM CONTROLLED (<130/80)BP CONTROLLED (<130/80)[facility]: 72-94-8392YU CONTROLLED (<130/80)BP CONTROLLED (<130/80)[facility]: 02-67-6519KB CONTROLLED (<130/80)BP CONTROLLED (<130/80)[facility]: 56-93-2429DI CONTROLLED (<130/80)BP CONTROLLED (<130/80)[facility]: 39-54-1090CAQABKEIWHZW (2 - PPSV23 or PCV20) PNEUMOCOCCAL (2 - PPSV23 or PCV20)[facility]: 38-73-0270YzxncebrwOhioHealthtart: 75-59-9497SyjqnpchwOhioHealthtart: 88-98-9750Zwvvmsxv identified in Blood by CultureOhioHealthtart: 70-47-9077Hvvtljgd identified in Urine by CultureOhioHealthtart: 59-64-7534Lhuyjtxz admissionOhioHealthtart: 00-83-4910AnxtidjdzOhioHealthtart: 25-61-6420Ldszzc scan of lower limb veinsUS venous duplex LE [facility] Start: 04-49-5498JW Lower extremity vein - leftOhio State Health System Start: 81-62-8960ZcqxqvbjdOhioHealthtart: 08-03-2022 End: 10-03-2022 reactive protein [Mass/volume] in Serum or PlasmaC-REACTIVE PROTEIN (CRP) Lab Routine Diarrhea, unspecified type Expected: 08/03/2022, Expires: 10/03/2022[facility] Work Phone: Comment on above:Expected: 08/03/2022, Expires: 10/03/2022Start: 08-03-2022 End: 44-67-6836AEY panel - Blood by Automated countCBC Lab Routine Diarrhea, unspecified type Expected: 08/03/2022, Expires: 10/03/2022[facility] Work Phone: Comment on above:Expected: 08/03/2022, Expires: 10/03/2022Start: 08-03-2022 End: 57-55-2048Khcmokrhhrtsk metabolic 2000 panel - Serum or PlasmaCOMP METABOLIC PANEL Lab Routine Diarrhea, unspecified type Expected: 08/03/2022, Expires: 10/03/2022[facility] Work Phone: Comment on above:Expected: 08/03/2022, Expires: 10/03/2022Start: 24-75-3745Gdrazlzzo vaccinationINFLUENZA (#1)[facility] Start: 81-04-1120HSAMZLVFGVKKZ GROUP B VACCINE 2 DOSEMENINGOCOCCAL GROUP B VACCINE 2 DOSE Immunization/Injection Routine Expected: 02/08/2022 (Approximate) [facility] Work Phone: comment on above:Expected: 02/08/2022 (Approximate) Start: 02-02-2022 End: 04-04-2022 reactive protein [Mass/volume] in Serum or PlasmaLicking Memorial Hospital Work Phone: Comment on above:Expected: 02/02/2022, Expires: 04/04/2022tart: 02-02-2022 End: 02-75-7053Kyhzmeijwvcux metabolic 2000 panel - Serum or PlasmaLicking Memorial Hospital Work Phone: Comment on above:Expected: 02/02/2022, Expires: 04/04/2022tart: 35-52-4254CFBPDUZXHSEFG CONJUGATE (2 - Risk 2-dose series) MENINGOCOCCAL CONJUGATE (2 - Risk 2-dose series)[facility]: 43-09-1895Cqlcglmrcztop B Vaccine: Consider Based On Risk (2 of 4 - Increased Risk Bexsero 2-dose series)Meningococcal B Vaccine: Consider Based On Risk (2 of 4 - Increased Risk Bexsero 2-dose series)[facility]: 12-16-2021 MENINGOCOCCAL B: Consider based on risk (2 of 4 - Increased Risk Bexsero 2-dose series)MENINGOCOCCAL B: Consider based on risk (2 of 4 - Increased Risk Bexsero 2-dose series)[facility]: 12-08-2021 End: 72-55-8972Zlqmvrsona A1c/Hemoglobin.total in BloodHGB A1C Lab Routine Pre- op evaluation Type 2 diabetes mellitus with other specified complication, un specified whether mcc insulin use (HCC) Expected: 12/08/2021, Expires: 02/07/2022[facility] Work Phone: Comment on above:Expected: 12/08/2021, Expires: 02/07/2022tart: 11-18-2021 End: 96-90-0791GUY W Auto Differential panel - BloodCBC + DIFF Lab Routine Preoperative examination 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) Expected: 11/18/2021, Expires: 01/18/2022[facility] Work Phone: comment on above:Expected: 11/18/2021, Expires: 01/18/2022tart: 11-18-2021 End: 13-35-0776Cbiphwnrselrk metabolic 2000 panel - Serum or PlasmaCOMP METABOLIC PANEL Lab Routine Preoperative examination 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) Expected: 11/18/2021, Expires: 01/18/2022[facility] Work Phone: comment on above:Expected: 11/18/2021, Expires: 01/18/2022tart: 11-18-2021 End: 81-14-8118HSNYPNE BLOOD TYPECONFIRM BLOOD TYPE Blood Bank Routine Preoperative examination 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) Expected: 11/18/2021, Expires: 01/18/2022[facility] Work Phone: comwurg on above:Expected: 11/18/2021, Expires: 01/18/2022tart: 11-18-2021 End: 36-56-7557HJPE-CoV-2 (COVID-19) RNA [Presence] in Respiratory specimen by LENCHO with probe detectionPRE-PROCEDURE & PRE-OPERATIVE COVID Microbiology Routine Preoperative examination 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) Expected: 11/18/2021, Expires: 11/18/2022[facility] Work Phone: comjvyp on above:Expected: 11/18/2021, Expires: 11/18/2022Start: 11-18-2021 End: 85-18-2925COMF AND SCREEN,30 DAYTYPE AND SCREEN,30 DAY Blood Bank Routine Preoperative examination 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) Expected: 11/18/2021, Expires: 2CUC [facility] Work Phone: comment on above:Expected: 11/18/2021, Expires: 01/18/2022tart: 78-17-0951XRKMZ-19 VACCINE (4 - Booster for Pfizer series) COVID-19 VACCINE (4 - Booster for Pfizer series)[facility]: 78-84-1689ICVUY-19 VACCINE (4 - Booster for Pfizer series)COVID-19 VACCINE (4 - Booster for Pfizer series)[facility]: 09-80-0236FQLCE-19 VACCINE (4 - Booster for Pfizer series)COVID-19 VACCINE (4 - Booster for Pfizer series) [facility]: 96-61-8144BLMXE-19 VACCINE (4 - Booster for Pfizer series)COVID-19 VACCINE (4 - Booster for Pfizer series)[facility]: 83-84-6452XYDXP-19 VACCINE (4 - Pfizer series)COVID-19 VACCINE (4 - Pfizer series)[facility]: 31-73-4971CBDZVODMS B (1 of 3 - Risk 3-dose series)HEPATITIS B (1 of 3 - Risk 3-dose series)[facility]: 65-37-3491Qqwxqickc B Vaccine (1 of 3 - Risk 3-dose series)Hepatitis B Vaccine (1 of 3 - Risk 3-dose series)[facility]: 26-40-8886WFG Vaccine (1 - 1-dose 60+ series)RSV Vaccine (1 - 1-dose 60+ series)[facility]: 15-37-3167MRB Vaccine (1 - Risk 60-74 years 1-dose series)RSV Vaccine (1 - Risk 60-74 years 1-dose series)[facility]: 56-71-9698Xveyvnlgi for malignant neoplasm of breastMammogram ScreeningUniversity Hospitals Lake West Medical Centertart: 2009 SHINGRIX VACCINE (1 of 2)SHINGRIX VACCINE (1 of 2)[facility]: 92-39-8696YQVCPGDUC (FIT-DNA)COLOGUARD (FIT-DNA)[facility]: 22-41-1137GuzosccnkldBRQOFLDKRCMSpdzeptnp ClinicStart: 83-35-4239NQJWJIEDFG CANCER SCREENINGCOLORECTAL CANCER SCREENINGUniversity Hospitals [facility] Centertart: 46-85-8858KR COLONOGRAPHYCT COLONOGRAPHYUniversity Hospitals Lake [facility] Centertart: 55-76-0051FDWAD OCCULT BLOOD FECAL OCCULT BLOODUniversity Hospitals Lake West Medical Centertart: 99-97-5206Jkviy 1996 panel - Serum or PlasmaLipid ScreeningUniversity Hospitals Lake West Medical Centertart: 70-16-1055Hlzjq panelLipid Screening [facility]: 15-93-2588HUWNM SCREENLIPID SCREENUniversity Hospitals Lake [facility] Medical Centertart: 91-60-9610Riqankxxx for malignant neoplasm of colonUniversity Hospitals Lake [facility] Medical Centertart: 78-93-4229XECIZGZANAAVWFAMLYKODBRSLXNijzrejis ClinicStart: 61-67-3577Fjejcqtqkln [facility]: 41-91-8629Kmujjgfss for malignant neoplasm of breast Mammogram ScreeningUniversity Hospitals Lake West Medical Centertart: 79-11-6701DDB TESTINGHPV TESTING [facility]rt: 59-91-7361Comnwlfis for malignant neoplasm of cervixHPV TestingWyandot Memorial Hospitalrt: 35-02-6142FWQ TESTINGPAP TESTINGUniversity Hospitals [facility] Start: 63-36-7672Vbdjcshuf for malignant neoplasm of cervixUniversity Hospitals Lake [facility] Center Start: 83-04-5879NVYEAJSMP A (1 of 2 - Risk 2-dose series)HEPATITIS A (1 of 2 - Risk 2-dose series)[facility]: 82-06-0078Hcxeztsnb A Vaccine (1 of 2 - Risk 2-dose series)Hepatitis A Vaccine (1 of 2 - Risk 2-dose series)[facility]: 87-81-1662USGDNVONC B (1 of 3 - Risk 3-dose series)HEPATITIS B (1 of 3 - Risk 3-dose series)[facility]: 92-40-4482Omceu microalbumin profileUniversity Hospitals Lake West Medical Centertart: 77-29-9602RCIZSE PCP TEAM CHRONIC DISEASE VISIT ANNUAL PCP TEAM CHRONIC DISEASE VISITUniversity Hospitals Lake West Medical Centertart: 77-89-9923Aclxtgz ScreeningAnxiety ScreeningUniversity Hospitals Lake West Medical Centertart: 71-44-6000PB Controlled (<130/80)BP Controlled (<130/80)[facility]: 76-52-8539NDR SCREENING HIV SCREENINGUniversity Hospitals Lake West Medical Centertart: 64-02-5820DZY screeningHIV Screening [facility]rt: 51-96-5342IKQ (1 of 2 - Risk 2-dose series)MMR (1 of 2 - Risk 2-dose series)[facility]: 41-82-4713CBD Vaccine (1 of 2 - Risk 2-dose series)MMR Vaccine (1 of 2 - Risk 2-dose series)[facility]: 24-91-3766Bgtsl depression screening assessmentDEPRESSION SCREENINGUniversity Hospitals Lake West [facility] Centertart: 50-82-8497Fgtlahajw for malignant neoplasm of cervixCervical Cancer ScreeningWyandot Memorial Hospitalrt: 90-89-5868GKDJUNRKT A (1 of 2 - Risk 2-dose series)HEPATITIS A (1 of 2 - Risk 2-dose series)[facility] CenterAnion gap measurementOhio State Health SystemBasophils [#/volume] in Blood by Automated countOhio State Health SystemBasophils/100 leukocytes in Blood by Automated [facility] HospitalCalprotectin [Mass/mass] in StoolCALPROTECTIN,FECAL Lab Routine Pouchitis (HCC) 02/02/2022 2:38 PM EDTCUC Health Work Phone: Calprotectin [Mass/mass] in StoolOhio State Health SystemCalprotectin [Mass/mass] in StoolCALPROTECTIN,FECAL Lab Routine Diarrhea, unspecified type Ordered: 08/03/2022[facility] Work Phone: Comment on above:Ordered: 08/03/2022alprotectin [Mass/mass] in StoolCALPROTECTIN,FECAL Lab Routine Pouchitis (HCC) Ordered: 09/28/2023[facility] Work Phone: Comment on above:Ordered: 09/28/2023 End: 23-71-5282OKU W Auto Differential panel - BloodCOMPLETE BLOOD COUNT AND DIFFERENTIAL Lab Routine 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 Every 6 months for 3 Occurrences starting 09/05/2024 until 09/05/2025[facility] Work Phone: Comment on above:Every 6 months for 3 Occurrences starting 09/05/2024 until 09/05/2025EA, FLUIDLicking Memorial Hospital Work Phone: Comment on above:Release Upon Ordering for 1 Occurrences starting 11/10/2021 End: 77-76-6668Dfpefypwg (Vitamin B12) [Mass/volume] in Serum or PlasmaVITAMIN B12 Lab Routine 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 Every 6 months for 3 Occurrences starting 09/05/2024 until 6[facility] ClinicComment on above:Every 6 months for 3 Occurrences starting 09/05/2024 until 09/05/2025omprehensive metabolic 1999 panel - Serum or PlasmaOhio State Health System Comprehensive metabolic 1999 panel - Serum or PlasmaOhio State Health System End: 82-39-6544Ksvuulronjema metabolic 1999 panel - Serum or PlasmaCOMPREHENSIVE METABOLIC PANEL Lab Routine 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 Every 6 months for 3 Occurrences starting 09/05/2024 until 6[facility] ClinicComment on above:Every 6 months for 3 Occurrences starting 09/05/2024 until 09/05/2025 Comprehensive metabolic 1999 panel - Serum or PlasmaOhio State Health SystemCYTOLOGY NON-GYNLicking Memorial Hospital Work Phone: Comment on above:Release Upon Ordering for 1 Occurrences starting 11/10/2021, 1 completed End: 36-87-3234EEF COMPLETEECG COMPLETE ECG Routine Preoperative examination 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) 1 Occurrences starting 11/18/[address] [place] [address] Work Phone: comment on above:1 Occurrences starting 11/18/2021 until 11/18/2022Eosinophils/100 leukocytes in Blood by Automated countOhio State Health SystemErythrocyte distribution width [Ratio] by Automated count [facility] Health SystemErythrocytes [#/volume] in BloodOhio State Health System End: 22-92-9846Cdyxnhqp [Mass/volume] in Serum or PlasmaFERRITIN Lab Routine 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 Every 6 months for 3 Occurrences starting 09/05/2024 until 6[place] ClinicComment on above:Every 6 months for 3 Occurrences starting 09/05/2024 until 09/05/2025 End: 02-52-8640Mlidob [Mass/volume] in Serum or PlasmaFOLATE, SERUM Lab Routine 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 CenterHemoglobin [Mass/volume] in 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 CenterLymphocytes [#/volume] in Blood by Automated count [facility] SystemLymphocytes/100 leukocytes in Blood by Automated countOhio State Health SystemMCH [Entitic mass] by Automated countOhio State Health SystemMCHC [Mass/volume] by Automated count [facility] SystemMCV [Entitic volume] by Automated count [facility] SystemMG Breast - bilateral ScreeningOhio State Health SystemMonocytes [#/volume] in Blood by Automated countOhio State Health SystemMonocytes/100 leukocytes in Blood by Automated count [facility] End: 57-69-0133XR Biliary ducts and Pancreatic duct WO and W contrast IVMRI PANC/ROSE MARIE WO/W IVCON Radiology Routine Abnormal findings on diagnostic imaging of liver and biliary tract 1 Occurrences starting 12/11/2023 until 01/09/2025 [facility] Work Phone: comment on above:1 Occurrences starting 12/11/2023 until 01/09/2025 End: 33-02-9647WJ Biliary ducts and Pancreatic duct WO and W contrast IVMRI PANC/ROSE MARIE WO/W IVCON Radiology Routine Abnormal findings on diagnostic imaging of liver and biliary tract 1 Occurrences starting 12/19/2024 until 01/18/2026 [facility] Work Phone: comment on above:1 Occurrences starting 12/19/2024 until 01/18/2026 End: 46-05-0837FH Unspecified body region 3D post processingMRI 3D POST PROCESSING Radiology Routine IPMN (intraductal papillary mucinous neoplasm) 1 Occurrences starting 12/11/2023 until 5[place] ClinicComment on above:1 Occurrences starting 12/11/2023 until 01/09/2025 End: 71-47-1057QV Unspecified body region 3D post processingMRI 3D POST PROCESSING Radiology Routine IPMN (intraductal papillary mucinous neoplasm) 1 Occurrences starting 12/19/2024 until 6[place] ClinicComment on above:1 Occurrences starting 12/19/2024 until 01/18/2026 End: 58-89-6082Syf abdomen w/o & w/contrast materialMRI PANC/ROSE MARIE WO/W IVCON Radiology Routine Pancreatic cyst 1 Occurrences starting 10/21/2021 until [facility] Work Phone: comment on above:1 Occurrences starting 10/21/2021 until 11/20/2022 End: 00-13-6595Cdb abdomen w/o & w/contrast materialMRI PANC/ROSE MARIE WO/W IVCON Radiology Routine Abnormal findings on diagnostic imaging of liver and biliary tract 1 Occurrences starting 01/10/2022 until 02/09/2023[facility] Work Phone: comment on above:1 Occurrences starting 01/10/2022 until 02/09/2023Mycobacterium tuberculosis stimulated gamma interferon [Interpretation] in Blood [facility] Mycobacterium tuberculosis stimulated gamma interferon release by CD4+ and CD8+ T-cells [Units/volume] corrected for background in BloodOhio State Health SystemMycobacterium tuberculosis tuberculin stimulated gamma interferon [Presence] in BloodOhio State Health SystemNeutrophils [#/volume] in Blood by Automated [facility] HospitalNeutrophils/100 leukocytes in Blood by Automated [facility] HospitalNuclear Ab [Titer] in SerumOhio State Health SystemNucleated erythrocytes [Presence] in Blood by Automated [facility] HospitalPatient EducationTrumbull Regional [facility] Work Phone: Patient [facility] Work Phone: Platelet mean volume [Entitic volume] in Blood by Automated [facility] HospitalPlatelets [#/volume] in Blood [facility] End: 38-66-4728PTRPCJEKFOIQKBYIOEGESU Endoscopy Routine Pouchitis (HCC) 1 Occurrences starting 02/02/2022 until 3[facility] Work Phone: Comment on above:1 Occurrences starting 02/02/2022 until 02/02/2023 End: 85-41-0777DWZZOWVHCMYGIBZLMCWGQG Endoscopy Routine Pouchitis (HCC) 1 Occurrences starting 09/28/2023 until 5[facility] Work Phone: Comment on above:1 Occurrences starting 09/28/2023 until 09/27/2024 End: 61-19-4550YZLTCUFWPXNDHDONQGGCYV Endoscopy Routine Crohn's disease of small intestine with complication (HCC) 1 Occurrences starting 09/18/2024 until 6[facility] Work Phone: Comment on above:1 Occurrences starting 09/18/2024 until 09/18/2025 End: 53-62-8485Mlzgaqgxfm exam chest 2 viewsXR CHEST 2V FRONTAL/LAT Radiology Routine Preoperative examination 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) 1 Occurrences starting 11/18/2021 until 3[facility] Work Phone: comment on above:1 Occurrences starting 11/18/2021 until 12/18/2022REFER FOR ADMIT INTERVIEWREFER FOR ADMIT INTERVIEW Procedures Routine Preoperative examination 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) Ordered: 2[facility] Work Phone: comment on above:Ordered: 11/18/2021URGICAL PATHOLOGY [facility] Work Phone: Comtnmy on above:Release Upon Ordering for 1 Occurrences starting 03/27/2023, 1 completedSURGICAL PATHOLOGYLicking [facility] Hospital Work Phone: Comzoqx on above:Release Upon Ordering for 1 Occurrences starting 12/27/2023, 1 completedTissue Pathology biopsy report [facility] Work Phone: Comwerh on above:Release Upon Ordering for 1 Occurrences starting 01/13/2025, [facility] Immunizations Immunization DateImmunizationNotesCare OvthnwvwTkecqask67-82-1839akpozeorc, seasonal, injectable, preservative freeTomasa Wakefield EXECUTIVE KITCHEN MANAGERGregSEED SERVICE ADVISOR Work Phone: [facility] CenterQdtkxr69-19-3767mwppdwfvi virus vaccine, unspecified formulationAshu Mittal MD Work Phone: [facility] CenterQrjvqf47-38-2429Tnzeoojmy, injectable, Madin [place] Canine Kidney, preservative free, quadrivalentTomasa Wakefield EXECUTIVE KITCHEN MANAGER.SEED SERVICE ADVISOR Work Phone: [facility] CenterFwxkxf27-65-9647nexrcpstx virus vaccine, unspecified formulationYola Hollins RNUniversity Hospitals Lake West Medical CenterCxdcve15-77-0345bprufgnqu virus vaccine, unspecified formulationToamsa Wakefield EXECUTIVE KITCHEN MANAGER.SEED SERVICE ADVISOR Work Phone: [facility] CenterNydbqd99-66-8988qxxsxhbiv, injectable, quadrivalent, preservative freeAna Enriquez MD Work Phone: [phone] CenterRbhymx90-41-6464eofabgcto virus vaccine, unspecified formulationAshu Mittal MD Work Phone: [facility] CenterGypvmx70-61-7475fzawalsaehcbe (MenACWY-TT) vaccine, quadrivalent (MENQUADFI)Ashu Mittal MD Work Phone: [facility] Work Phone: [phone]vbryzfyycyh polysaccharide vaccine, 23 valentAshu Mittal MD Work Phone: [facility] Work Phone: [phone]anmupbj polysaccharide vaccine, 23 valValentin Kapoor RN Work Phone: [facility] Work Phone: [phone]iprcvln influenzae type b vaccine, PRP-T conjugateGi (I-Stat)[facility] Work Phone: [phone]cxeloxgt B vaccine, recombinant, OMV, adjuvantedGi (I-Stat)[facility] Work Phone: [phone]swfmygghdfnh oligosaccharide (groups A, C, Y and W-135) diphtheria toxoid conjugate vaccine (MCV4O)Gi (I-Stat)[facility] Work Phone: [phone]mljusfppvb conjugate vaccine, 13 valentGi (I-Stat)[facility] Work Phone: [phone]rgsmskam, injectable, quadrivalent, preservative freePacc 5 Work Phone: [facility] Work Phone: [phone]VQ-31 vaccine, age 12+ yr (PFIZER- BIONTECH - PURPLE TOP)Ashu Mittal MD Work Phone: [facility] Work Phone: [phone]-39 vaccine, age 12+ yr (PFIZER- BIONTECH - PURPLE [facility])Ashu Mittal MD Work Phone: [facility] Work Phone: [phone]ysrpz vaccine recombinantPacc 5 Work Phone: [facility] Work Phone: [phone]ukit, injectable, quadrivalent, preservative freePacc 5 Work Phone: [facility] Work Phone: [phone]hfpew vaccine recombinantPacc 5 Work Phone: [facility] Work Phone: [phone]bwvum, injectable, Madin [place] Canine Kidney, preservative free, quadrivalentAshu Mittal MD Work Phone: [facility] CenterPocnik17-63-7812kbmkyycnv, injectable, quadrivalent, contains preservativeTomasa Wakefield APRN.CNP Work Phone: [facility] CenterVweqhy25-15-6276mvptotqkv, injectable, quadrivalent, preservative freeAshu Mittal MD Work Phone: [facility] CenterOusnea65-94-6629tkvzktaph, injectable, quadrivalent, preservative Kareem Mittal MD Work Phone: [facility] Payers DatePayer CategoryPayerPolicy [id number] 2024Blue Cross Blue [id number]. [id number] [id number] BLUE CARD PPO OOS [id number] 2017-Present [phone] [address] [place] [address] [id number] ANTHEM BLUE CARD PPO OOS [id number] 2017-Present [phone] [address] [place] [address] [id number]. Blue Cross Blue [id number] .[id number] [id number] .[id number] .1.972290.3.579.2.593UnknownAWHITE RIVER JUNCTION Health [id number] [id number] 08.31.830.1.688464.3.579.2.531 [id number] 2..8[id number] 2.16.840.[id number] 2..840.1.711993.3.579.2.531 [id number] 2.[id number] 2.840.1.155279.3.579.2.531 Social History DateTypeDetailFacilityStart: 03-02-2011 End: 42-75-7855Zhgbljg smoking status NHISNever smoked tobaccoUniversity Hospitals Lake West Medical Center Start: 03-30-2021 End: 01-74-7007Pajkljf intakeCurrent non-drinker of alcohol (finding)[facility] Centertart: 74-12-1254[facility]gs [facility]Fe[facility] Hospitaltart: 10-01-2021 End: 16-49-0250Jhluxoho to SARS-CoV-2 (event)Not sureUniversity Hospitals Lake West Medical Centertart: 05-03-2021 End: 11-60-2070Prxpypvd to SARS-CoV-2 (event)Unable to assessUniversity Hospitals Lake West Medical Center Work Phone: Start: 12-09-2021 End: 10-94-8629Ypgohsb intakeCurrent drinker of alcohol (finding)[facility] Centertart: 49-20-8939Uxrjlgf SDOH Alcohol CommentocassionallyCChillicothe VA Medical Center Start: 01-22-2023 End: 01-70-3645Jms [facility]: 03-02-2011 End: 20-64-6731Lgqakme use and exposureSmokeless tobacco non-userUniversity Hospitals Lake West Medical Centertart: 01-22-2023 End: 40-47-5217Bvqtiid of Social functionUniversity Hospitals Lake West Medical Centertart: 06-16-2012 National Score (1-100), lower number is lower riskNot on fileUniversity Hospitals Lake West Medical Center Start: 41-96-9167Vfrqnt identityIdentifies as female gender (finding)[facility] Centertart: 08-30-2024 End: 15-81-9769AneRgbcyt (finding)[facility] Medical Equipment Procedure CodeEquipment CodeEquipment Original TextEquipment IdentifierDatesMesh Vicryl Flat Polyglactin 910 Woven 33c95si Surgical Knit Hernia Repair - [id number]: 83-18-4070Fnwz Vicryl Flat Polyglactin 910 Woven 43f81iy Surgical Knit Hernia Repair - [id number]: 12-19-2021 [id number], [id number], [id number], [id number]: 76-27-8802Cfpypeb on above: Use as instructed three times daily1 Each three times daily.1 Syringe as directed.Blood Sugar Diagnostic (Onetouch Verio Test Strips) stripStart: 48-01-7883Hdnvy Sugar Diagnostic (Onetouch Verio Test Strips) stripStart: 93-21-4888Krwio Sugar Diagnostic (Onetouch Verio Test Strips) stripStart: 09-10-2023 End: 82-61-8784Xwxzr Sugar Diagnostic (Onetouch Verio Test Strips) stripStart: 83-33-9038Ifzoy Sugar Diagnostic (Onetouch Verio Test Strips) stripStart: 00-56-6840Cveap Sugar Diagnostic (Onetouch Verio Test Strips) stripStart: 09-10-2023 End: 97-63-6306Mmaqw Sugar Diagnostic (Onetouch Verio Test Strips) stripStart: 70-30-9958Wiauz Sugar Diagnostic (Onetouch Verio Test Strips) stripStart: 85-26-1896Oosin Sugar Diagnostic (Onetouch Verio Test Strips) stripStart: 09-10-2023 End: 48-81-1401Aocdp Sugar Diagnostic (Onetouch Verio Test Strips) stripStart: 94-48-2251Pdazu Sugar Diagnostic (Onetouch Verio Test Strips) stripStart: 05-74-1644Ifipa Sugar Diagnostic (Onetouch Verio Test Strips) stripStart: 09-10-2023 End: 01-90-3431Ehxlk Sugar Diagnostic (Onetouch Verio Test Strips) stripStart: 35-30-1535Yrepr Sugar Diagnostic (Onetouch Verio Test Strips) stripStart: 42-05-3455Aowol Sugar Diagnostic (Onetouch Verio Test Strips) stripStart: 09-10-2023 End: 14-71-0175Ybuoi Sugar Diagnostic (Onetouch Verio Test Strips) stripStart: 97-80-9389Ufnpc Sugar Diagnostic (Onetouch Verio Test Strips) stripStart: 79-86-7993Iswtd Sugar Diagnostic (Onetouch Verio Test Strips) stripStart: 09-10-2023 End: 74-21-1040Ozsad Sugar Diagnostic (Onetouch Verio Test Strips) stripStart: 08-94-0943Jmvwo Sugar Diagnostic (Onetouch Verio Test Strips) stripStart: 47-16-2543Jgejz Sugar Diagnostic (Onetouch Verio Test Strips) stripStart: 09-10-2023 End: 76-55-9200Gsxug Sugar Diagnostic (Onetouch Verio Test Strips) stripStart: 64-33-9064Jqxcz Sugar Diagnostic (Onetouch Verio Test Strips) stripStart: 97-43-2697Hmvpm Sugar Diagnostic (Onetouch Verio Test Strips) stripStart: 09-10-2023 End: 47-15-6880Uijdt Sugar Diagnostic (Onetouch Verio Test Strips) stripStart: 85-46-8591Kjeaj Sugar Diagnostic (Onetouch Verio Test Strips) stripStart: 09-07-2023 End: 66-34-8531Tsvwn Sugar Diagnostic (Onetouch Verio Test Strips) stripStart: 09-10-2023 End: 82-69-1964Cotet Sugar Diagnostic (Onetouch Verio Test Strips) stripStart: 54-56-6809Kdwlx Sugar Diagnostic (Onetouch Verio Test Strips) stripStart: 09-07-2023 End: 52-11-6651Yacem Sugar Diagnostic (Onetouch Verio Test Strips) stripStart: 09-10-2023 End: 28-50-5886Krlyk Sugar Diagnostic (Onetouch Verio Test Strips) stripStart: 94-43-0062Vsmzr Sugar Diagnostic (Onetouch Verio Test Strips) stripStart: 09-07-2023 End: 25-54-3940Ddpnh Sugar Diagnostic (Onetouch Verio Test Strips) stripStart: 09-10-2023 End: 37-67-3700Igthy Sugar Diagnostic (Onetouch Verio Test Strips) stripStart: 61-62-0588Lvftb Sugar Diagnostic (Onetouch Verio Test Strips) stripStart: 09-07-2023 End: 61-80-5606Exywk Sugar Diagnostic (Onetouch Verio Test Strips) stripStart: 09-10-2023 End: 79-57-0275Owdhg Sugar Diagnostic (Onetouch Verio Test Strips) stripStart: 94-42-0559Sbont Sugar Diagnostic (Onetouch Verio Test Strips) stripStart: 09-07-2023 End: 82-64-8014Ldrzh Sugar Diagnostic (Onetouch Verio Test Strips) stripStart: 09-10-2023 End: 09-10-2023 Goals DatePatient GoalDesired Activity/State Functional Status GoobZpfqlobgbhZpzzhjXvkwbkwp18-50-3276Ymgiqliazf statusPatient at Baseline [facility] Work Phone: [phone]bonmjmq statusPatient at Baseline [facility] Work Phone: [phone]nbsddej statusDisability Status [facility] Work Phone: [phone] you deaf, or do you have serious difficulty hearingNo 12/26/2021 4:20 PM Sayra Perry RN NoCleveland Xnaxto22-99-0142Mrl you blind, or do you have serious difficulty seeing, even when wearing glassesNo 12/26/2021 4:20 PM Sayra Perry RN NoC[place] Yvrwop99-74-8493Gm you have serious difficulty walking or climbing stairsNo 12/26/2021 4:20 PM Sayra Perry RN NoCleveland Tngzvw94-91-0676Ne you have difficulty dressing or bathingNo 12/26/2021 4:20 PM Sayra Perry RN NoC[place] Ueqlqd62-57-0412Vbuwjta of a physical, mental, or emotional condition, do you have difficulty doing errands alone such as visiting a physician's office or shoppingNo 12/26/2021 4:20 PM Sayra Perry RN No [facility] Mental Status EztvLfthekqiqdGybyyfHeynomzz80-91-2895Szbraugqp functionCognitive Status [facility] Work Phone: [phone]cjxsyj functionCognitive Status [facility] Work Phone: [phone]riel of a physical, mental, or emotional condition, do you have serious difficulty concentrating, remembering, or making decisionsNo 12/26/2021 4:20 PM Sayra Perry RN [facility] Clinical Notes 10-05-2021 to 05-18-2025 Note Date & KntlOhauTyiswcgg38-50-2566 NoteHNO ID: [id number] Author: DARLENE PASCAL RPh Service: ? Author Type: Pharmacist Type: Progress Notes Filed: 05/18/2025 15:30 Note Text: IBD Medication Consult [facility] [place] Patient consents to pharmacy consult agreement. The initial consult was conducted virtually with the patient where the consult agreement was explained. The patient may decline or cancel the agreement at any time. After consideration, the patient consented to the pharmacy consult agreement and agreed to allow medications be collaboratively managed by a pharmacist. Patient Name: Laura Stephenson IBD Provider: Dr. Mittal Diagnosis: UC with Crohn's-like disease of pouch Insurance: [employer], [employer] Reason for consult: efficacy, safety, coordination, health maintenance review, and reconciliation Met with Laura today. She reports: - Joint pain (most [...] of cipro (alternates 2-weeks on, 2-weeks off). Just started current 2-week course yesterday. - Stopped Otezla after appt with Tomasa ~2-weeks ago and psoriasis has remained well-controlled. Missed recent Derm appt so has not yet had f/u, but r/s for 06/2025 - Delayed infusion due 05/08/2025 until after change of insurance to Medicare Advantage took effect on 05/16/2025. Is r/s for 05/22/2025. Med rec completed today, see below for details on discrepancies. X = taking as prescribed/listed. Medication Directions Comments apremilast (OTEZLA) 30 mg tablet Apremilast (Otezla) 30 mg tablet Active 30 MG PO .once daily June 09, 2024 1:00am Stopped ~05/01 atenolol (TENORMIN) 25 mg tablet Take 1 tablet by mouth once daily. X blood sugar diagnostic (BiBCOMTOUCH VERIO TEST STRIPS) test strip Use as [...] by mouth. Only as needed for oral lichen planus; has needed a couple doses lately insulin [...] takes insulin as needed--hardly ever needs Insulin [place], Disposable, (BD ULTRA-FINE MIN PEN NEEDLE) 32 [...] None Abdominal Cramps: sometimes, but that is n (more content not included)... [facility]10-06-2025 NoteHNO ID: [id number] Author: TOMASA WAKEFIELD APRN.SEED SERVICE ADVISOR Service: ? Author Type: Nurse Practitioner Type: Progress Notes Filed: 04/20/2025 08:43 Note Text: VIRTUAL VISIT FOLLOW UP Laura Stephenson [id number] has requested a video telemedicine follow-up visit. Laura Stephenson verbalized informed consent to proceed with the video telemedicine follow-up visit. Laura Stephenson was informed that the details of this video visit would be recorded as part of their electronic medical record. I have communicated my name and active licensure. The patient's identity and physical location were verified at the time of this visit. Either the patient or their legal parts representative has been informed of the risks and benefits of -- and alternatives to -- treatment through a remote evaluation and consents to proceed with the evaluation remotely. Patient location at time of call: Home Additional encounter participants and relationship: None Patient presents with: IBD Follow Up I had a virtual visit with Mrs. Stephenson today for follow up of IBD. UPDATED HISTORY: -Skyrizi 2/3 induction infusions done -She never stopped Otzela AND reports being told not to stop even though that was the whole reason for change -Having joint pain -Now having some issues with insurance and reports she won't be able to get meds until she is on new plan -Cipro 2 weeks on/2 weeks off Pouch History Template Pouch History Disease Type: Ulcerative Colitis Medications PRIOR to Pouch Surgery: Corticosteroids and 5-ASA Date of Pouch Creation (Mo/Year): 1994 Pouch Indication: Medically refractory disease Type of Pouch: J pouch (IPAA) Number of Pouch Operative Stages: 2 (proctocolectomy + pouch creation + diverting ileostomy, subsequent ileostomy takedown) Pouch Complications: Crohn's-like disease of Pouch Medications Received AFTER Pouch Surgery: Antibiotics Date of Last Pouchoscopy (Mo/Year): 2024 Current Pouch Symptoms Average number of bowel movements in 24 hour period: 5-6 Stool Frequency: Usual stool frequency since pouch surgery Rectal Bleeding: None or rare Fecal Urgency: None Abdominal Cramps: None Fever (>100 F) in last 24 hours: No Number of nocturnal bowel movements: 0 Incontinence or Fecal Accidents in last week: None Anti-Diarrheal use: Yes Fecal Seepage:No Use of Pads/Adult Diapers: Yes EIMs - psoriasis AND joint pain Rare NSAIDs Denies smoking PAST MEDICAL HISTORY Diagnosis Date Arthritis Chronic pain of left knee 12/09/2021 Diabetes mellitus (HCC) History of transfusion HTN (hypertension) Hypothyroidism Lichen sclerosus Rheumatoid arthritis (HCC) UC (ulcerative colitis) (HCC) PAST SURGICAL HISTORY Procedure Laterality Date ABDOMINAL SURGERY HX CHG DELIVERY PAST SURGICAL HISTORY OF 1994 2 stage j-pouch PAST SURGICAL HISTORY OF abdominal hernia x2 PICC LINE INSERT/CONSULT 12/23/2021 FAMILY HISTORY Problem Relation Age of Onset Anesthesia Problems No Family History SOCIAL HISTORY[1] Current Outpatient Medications Medication Sig Dispense Refill diphenoxylate-atropine (LOMOTIL) 2.5-0.025 mg per tablet TAKE [...] and notify provider. 5 Pen 2 Insulin [place], Disposable, (BD ULTRA-FINE MIN PEN NEEDLE) 32 gauge x 5/32 1 Each three times daily. 100 Each 2 blood sugar diagnostic (ONETOUCH VERIO TEST STRIPS) test strip Use as instructed three times daily 100 Stri (more content not included)...[facility]09-26-2025 NoteHNO ID: [id number] Author: SALONI CALDWELL RN Service: ? Author Type: Registered Nurse Type: Progress Notes Filed: 04/10/2025 14:09 Note Text: Maninder Wakefield notified that pt was expecting a lower dose of skyrizi today d/t side effects after first dose. Pt then notified that they do not do a lower dose and side effects should diminish as she moves to home injections. Pt amenable to receive ordered dose today.[facility]08-29-2025 Telephone encounter Note* Telephone Encounter - Mine Delvalle RN - 03/13/2025 10:46 AM EDT Requested Prescriptions Pending Prescriptions Disp Refills diphenoxylate-atropine (LOMOTIL) 2.5-0.025 mg per tablet [Pharmacy Med Name: DIPHENOXYLATE-ATROP 2.5-0.025] 120 tablet Sig: TAKE 1 TABLET BY MOUTH 3 OR 4 TIMES DAILY NEEDED KELLI 01/26/25 PLAN -Continue Entyvio Q4 weeks, Cipro 2 weeks on/2 weeks off, Lomotil PRN & PPI -Will call her derm office to clarify request for IL23; Dr. Alethea Vickers @ [facility] [phone] -Follow up with Dr. Mittal in Jul as scheduled Mine Delvalle RN Full Time Babysitter, IBD [facility]08-29-2025 Miscellaneous Notes* Telephone Encounter - Mine Delvalle RN - 03/13/2025 10:46 AM EDT Requested Prescriptions Pending Prescriptions Disp Refills diphenoxylate-atropine (LOMOTIL) 2.5-0.025 mg per tablet [Pharmacy Med Name: DIPHENOXYLATE-ATROP 2.5-0.025] 120 tablet Sig: TAKE 1 TABLET BY MOUTH 3 OR 4 TIMES DAILY NEEDED KELLI 01/26/25 PLAN -Continue Entyvio Q4 weeks, Cipro 2 weeks on/2 weeks off, Lomotil PRN & PPI -Will call her derm office to clarify request for IL23; Dr. Alethea Vickers @ [facility] - [phone] -Follow up with Dr. Mittal in Jul as scheduled Mine Delvalle RN Full Time Babysitter, IBD documented in this encounterUniversity Hospitals [facility]08-29-2025 NoteHNO ID: [id number] Author: SABINO BURCIAGA RN Service: ? Author Type: Registered Nurse Type: Progress Notes Filed: 03/13/2025 11:46 Note Text: Patient has declined oral pre meds. Dr Enriquez aware. Proceed with treatment as planned [facility]ino Burciaga [facility]ND[facility] History of Present illness Narrative* Sabino Burciaga RN - 03/13/2025 10:18 AM EDT Patient has declined oral pre meds. Dr Enriquez aware. Proceed with treatment as planned Sabino Burciaga RN documented in this encounterUniversity Hospitals Lake [facility]08-29-2025 Instructions* Patient Instructions* Ana Enriquez MD - 03/13/2025 9:45 AM EDT Continue iron and folic acid supplements as well as oral B12 3 weeks each month [facility] 24 weeks Labs 1 week before We discussed your lab results: - Your B12 level is in good shape at 500, so no changes are needed. Continue taking your B12 supplements as you have been: one pill weekly and one pill daily for three weeks each month. - Your iron level is on the low side, but it is not significantly affecting your blood counts. Yourhemoglobin is 12.9, which is very good and improved compared to previous levels. You are not anemic. - You may continue taking iron supplements if you wish, but it is not mandatory since you feel well. - Continue taking folic acid supplements daily, as it helps with red blood cell production and cellular metabolism. - Your sodium level is slightly decreased at 134, but this is consistent with your normal range. Noaction is needed at this time. - Your platelets remain high due to the absence of your spleen, but this is expected and not a concern. We discussed your exercise routine: - You are doing a great job staying active by riding your bike 10-15 miles per week. Please continue this routine, as regular exercise is beneficial for your overall health. Follow-up: - We will recheck your labs in 24 weeks. Your next appointment is scheduled for August. Keep up the good work with your supplements and exercise routine! documented in this encounterUniversity Hospitals Lake [facility] Center08-29-2025 History of Present illness Narrative* Ana Enriquez MD - 03/13/2025 9:20 AM EDT Images from the original note were not included. 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 This remains stable today. In the course of her workup she was found to be mildly B12 and mildly iron deficient and she has been on oral supplements since January 2023. Her iron studies and b12 level are normal today. She is alsoon plaquenil and Otezla for psoriasis. Hyponatremia--Resolved SUMMARIZED PLAN OF CARE: Continue iron and folic acid supplements as well as oral B12 3 weeks each month RTC 24 weeks Labs 1 week before AI Assisted A/P: 1. 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 Status post splenectomy (Z90.81) Chronic thrombocytosis is a known sequela of prior splenectomy; platelet count remains elevated as expected. - No intervention required at this time. 3. Iron deficiency anemia secondary to inadequate dietary iron intake (D50.8) 4. Iron deficiency (E61.1) Iron levels are low, likely due to limited dietary intake of meat and insufficient iron supplementation; however, hemoglobin is stable at 12.9, improved from prior values (11.3 in October 2023 and 9.0 in December 2021), and patient is not currently anemic. - Continue daily iron supplementation. - Educated patient on the difference between multivitamins and iron supplements, emphasizing the importance of adequate iron intake. - Follow-up labs in 24 weeks to reassess iron levels. 5. 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 Anemia due to vitamin B12 deficiency, unspecified B12 deficiency type (D51.9) Vitamin B12 level is within acceptable range (500s); patient is compliant with B12 supplementation regimen. - Continue current B12 supplementation regimen (1 pill once a week and 1 pill daily). 7. Psoriasis (L40.9) CASE HISTORY: Reverse Chronological Order 10/26/2023 - EUA and pouchoscopy A, B. Pouch, afferent limb and inlet, biopsy: -Active enteritis -Negative for granulomas or dysplasia C. Pouch, body, biopsy: -Chronic mildly active enteritis -Negative for granulomas or dysplasia D. Anus, transitional zone, biopsy: -Predominantly intestinal mucosa with mild active enteritis -Negative for granulomas or dysplasia 12/12/2022 - MRI Pancreas: Postoperative changes distal pancreatectomy with mildly increased size of 1.3 cm cystic lesion in the uncinate process, likely sidebranch IPMN. Decreased postoperative fluid collection and fat necrosis. Hepatic steatosis. 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 Crohn's --s/p 1994, total colectomy, on Entyvio and follows GI HPI: Updated Visit, March 13, 2025: Patient with a history of splenectomy presents for follow-up. Recent lab results show a B12 level of 500 pg/mL and a sodium level of 134 mmol/L. Iron levels are noted to be low. Hemoglobin is currently 12.9 g/dL, improved from previous values of 11.3 g/dL in October 2023 and 9.0 g/dL in December 2021. Platelet count remains elevated, attributed to prior splenectomy. Patient is currently taking a weekly B12 supplement and a daily multivitamin. She reports occasional missed doses of her vitamins and is unsure if she is taking an iron supplement. She denies significant dietary intake of meat. Patient reports feeling well overall and has recently started exercising, riding a bike 10-15 milesper week. She is semi-retired, working two days a week, and enjoys spending time with her grandchildren, ages 13, 11, and 9. (Today) CBC: - Hemoglobin: 12.9 g/dL - Platelets: Elevated - Sodium: 134 mmol/L - B12: Approximately 500 - Iron: Decreased (October 2023) CBC: - Hemoglobin: 11.3 g/dL (December 2021) CBC: - Hemoglobin: 9.0 g/dL Updated Visit, September 05, 2024: Here with Danyel Taking Otezla and plaquenil for psoriasis. Insurance is not covering her intivyo Reviewed labs and explained the thrombocythemia cause in her case. Continue taking iron, folate, B12 supplements. Updated Visit, November 08, 2023: Was admitted with bowel obstruction due to scar tissue from pouch - needed dilation. Otherwise is doing well. Labs are improved. Creatinine will recover. Enjoys baseball and reminisces about the old stadium. Updated Visit, August 15, 2023: Laura returns today to follow up. B12 looks great - decrease to 3 weeks a month. Folic acid is low - start taking supplement. Ferratin and Hgb are improving. She reports watery stool, likely caused by magnesium. Updated Visit, May 21, 2023: On Cipro now for pouchitis. She is taking iron daily 5 days a week. B12 orally daily. No BRB. Iron and B12 pending. Hgb stable. Updated Visit, February 16, 2023: Was noted to be B12 deficient Also appears to have iron deficiency anemia with decreased H/H and iron saturation and ferritin. Labs are stable otherwise. Blood sugars are elevated. Initial Visit, February 16, 2022: Laura Stephenson presents today Hematology and Oncology evaluation. She is a 61 year old female who underwent distal pancreas resection as well as splenectomy. She has resultant benign thrombocytosis that can be followed. She is recovering from surgery well. She has a prior history of UC and is following with GI. REVIEW OF SYSTEMS Per HPI and otherwise negative by full review of organ systems. ECOG PERFORMANCE STATUS: 1 PHYSICAL EXAMINATION: Vitals: BP 121/77 Pulse 72 Temp 36.3 C (97.4 F) (Temporal) Resp 16 Ht 165.1 cm (5' 5 ) Wt 96.2 kg(212 lb 1.3 oz) LMP 02/23/2011 SpO2 97% BMI 35.29 kg/m Body surface area is 2.1 meters squared. Exam limited to gross visualization where appropriate. Gen.: This is an age-appropriate patient in no acute distress. Head: Appears atraumatic with no visible lesions. Eyes: Pupils equally round and reactive to light, extraocular muscles are intact. Neck: Supple. Respiratory: Appears to be respiring comfortably. Neurologic: Nonfocal to gross visualization. Alert and oriented 3. Psychiatric: No evidence of inappropriate anxiety or depression. Skin: Visible areas of skin without rash, lesions, wounds or petechiae. ALLERGIES: ALLERGIES Allergen Reactions Azithromycin Unknown Metronidazole Itching Itching and redness Naproxen Penicillins Sulfa (Sulfonamide * Unknown Vancomycin Rash MEDICATIONS: hydrOXYchloroQUINE (PLAQUENIL) 200 mg tablet Take 200 mg by mouth. tapinarof (VTAMA) 1 % cream Tapinarof (Vtama) 1 % cream Active APPLIC TOPICAL November 03, 2024 12:00am ergocalciferol 50,000 unit capsule (VITAMIN D2, DRISDOL) TAKE 1 CAPSULE BY MOUTH ONE TIME A WEEK. apremilast (OTEZLA) 30 mg tablet Apremilast (Otezla) 30 mg tablet Active 30 MG PO .once daily June 09, 2024 1:00am rosuvastatin (CRESTOR) 5 mg tablet Take 1 tablet by mouth once daily. folic acid 1 mg tablet TAKE 1 TABLET BY MOUTH EVERY DAY atenolol (TENORMIN) 25 mg tablet Take 1 tablet by mouth once daily. spironolactone (ALDACTONE) 25 mg tablet Take 1 [...] gauge x 1 1 Syringe as directed. metFORMIN ER (GLUCOPHAGE XR) 500 mg 24 [...] units >400 give 10units and notify provider. Insulin [place], Disposable, (BD ULTRA-FINE MIN PEN NEEDLE) 32 gauge x 5/32 1 Each three times daily. blood sugar diagnostic (TradeCardUCH VERIO TEST STRIPS) test strip Use as instructed three times daily lancets (BiBCOMTOUCH DELICA PLUS LANCET) 33 gauge 1 Each three times daily. Lactobacillus acidophilus (PROBIOTIC ORAL) Take by mouth. levothyroxine (SYNTHROID) 150 mcg tablet Take 1 tablet by mouth once daily. Omeprazole 40 mg capsule Take 40 mg by mouth once daily. FLUoxetine (PROZAC) 20 mg capsule Take 20 mg by mouth once daily. diphenoxylate-atropine (LOMOTIL) 2.5-0.025 mg per tablet TAKE 1 TABLET BY MOUTH 3 OR 4 TIMES DAILY NEEDED LABORATORY VALUES: WBC (k/uL) Date Value 03/06/2025 7.69 RBC (m/uL) Date Value 03/06/2025 4.27 Hemoglobin (g/dL) Date Value 03/06/2025 12.9 Hematocrit (%) Date Value 03/06/2025 39.0 MCV (fL) Date Value 03/06/2025 91.3 MCH (pg) Date Value 03/06/2025 30.2 MCHC (g/dL) Date Value 03/06/2025 33.1 RDW-CV (%) Date Value 03/06/2025 14.6 Platelet Count (k/uL) Date Value 03/06/2025 459 (H) MPV (fL) Date Value 03/06/2025 8.4 (L) Glucose (mg/dL) Date Value 03/06/2025 120 (H) BUN (mg/dL) Date Value 03/06/2025 10 Creatinine (mg/dL) Date Value 03/06/2025 0.69 Sodium (mmol/L) Date Value 03/06/2025 134 (L) Potassium (mmol/L) Date Value 03/06/2025 5.1 Chloride (mmol/L) Date Value 03/06/2025 100 CO2 (mmol/L) Date Value 03/06/2025 24 Protein, Total (g/dL) Date Value 03/06/2025 7.0 Albumin (g/dL) Date Value 03/06/2025 4.1 Calcium, Total (mg/dL) Date Value 03/06/2025 10.0 Alkaline Phosphatase (U/L) Date Value 03/06/2025 78 Bilirubin, Total (mg/dL) Date Value 03/06/2025 0.3 AST (U/L) Date Value 03/06/2025 18 ALT (U/L) Date Value 03/06/2025 13 DIAGNOSIS: (D75.838, Z90.81) Thrombocytosis 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 (primary encounter diagnosis) Plan: COMPLETE BLOOD COUNT AND DIFFERENTIAL, COMPREHENSIVE METABOLIC PANEL, IRON AND TIBC, FERRITIN, VITAMIN B12, FOLATE, SERUM (D50.8) Iron deficiency anemia secondary to inadequate dietary iron intake Plan: COMPLETE BLOOD COUNT AND DIFFERENTIAL, COMPREHENSIVE METABOLIC PANEL, IRON AND TIBC, FERRITIN, VITAMIN B12, FOLATE, SERUM (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 Plan: COMPLETE BLOOD COUNT AND DIFFERENTIAL, COMPREHENSIVE METABOLIC PANEL, IRON AND TIBC, FERRITIN, VITAMIN B12, FOLATE, SERUM (L40.9) Psoriasis Plan: COMPLETE BLOOD COUNT AND DIFFERENTIAL, COMPREHENSIVE METABOLIC PANEL, IRON AND TIBC, FERRITIN, VITAMIN B12, FOLATE, SERUM (E61.1) Iron deficiency (D51.9) Anemia due to vitamin B12 deficiency, unspecified B12 deficiency type (Z90.81) Status post splenectomy PAST MEDICAL HISTORY Diagnosis Date Arthritis Chronic pain of left knee 12/09/2021 Diabetes mellitus (HCC) History of transfusion HTN (hypertension) Hypothyroidism Lichen sclerosus Rheumatoid arthritis (HCC) UC (ulcerative colitis) (HCC) PAST SURGICAL HISTORY Procedure Laterality Date ABDOMINAL SURGERY HX CHG DELIVERY PAST SURGICAL HISTORY OF 1995 2 stage j-pouch PAST SURGICAL HISTORY OF abdominal hernia x2 PICC LINE INSERT/CONSULT 12/23/2021 Social History Tobacco Use Smoking status: Never Smokeless tobacco: Never Vaping Use Vaping status: Never Used Substance Use Topics Alcohol use: Yes Comment: ocassionally Drug use: Never FAMILY HISTORY Problem Relation Age of Onset Anesthesia Problems No Family History I spent a total of 20 minutes on the date of service which included preparing to see the patient, [id number] patient care, completing clinical documentation, performing a medically appropriate examination, counseling and educating the patient/family/caregiver, ordering medications, tests, or procedures, independently interpreting results (not separately reported), communicating results to the patient/family/caregiver, and care coordination (not separately reported). Ana Enriquez MD, CPE Hematology and Oncology Services Provided at: [place], [place] CC: Ashu Barton, DO [address] [facility] [id number] documented in this encounterUniversity Hospitals Lake [facility]08-29-2025 NoteHNO ID: [id number] Author: ANA ENRIQUEZ MD Service: ? Author Type: Physician Type: Progress Notes Filed: 03/15/2025 19:36 Note Text: NAME: Laura Stephenson NO.: [id number] DATE OF SERVICE: March 13, 2025 (Marguerite) Some elements in this clinic note that are critical to medical decision making have been carefully reviewed and included from a prior clinic note dated: September 05, 2024 (Marguerite) Referring Provider: Ashu Mittal Additional Clinicians involved in Laura Stephenson's care: Alethea Vickers DIAGNOSIS: Thrombocytosis CASE SUMMARY / ASSESSMENT: 64 year old woman with 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 This remains stable today. In the course of her workup she was found to be mildly B12 and mildly iron deficient and she has been on oral supplements since January 2023. Her iron studies and b12 level are normal today. She is also on plaquenil and Otezla for psoriasis. Hyponatremia--Resolved SUMMARIZED PLAN OF CARE: Continue iron and folic acid supplements as well as oral B12 3 weeks each month RTC 24 weeks Labs 1 week before AI Assisted A/P: 1. 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 Status post splenectomy (Z90.81) Chronic thrombocytosis is a known sequela of prior splenectomy; platelet count remains elevated as expected. - No intervention required at this time. 3. Iron deficiency anemia secondary to inadequate dietary iron intake (D50.8) 4. Iron deficiency (E61.1) Iron levels are low, likely due to limited dietary intake of meat and insufficient iron supplementation; however, hemoglobin is stable at 12.9, improved from prior values (11.3 in October 2023 and 9.0 in December 2021), and patient is not currently anemic. - Continue daily iron supplementation. - Educated patient on the difference between multivitamins and iron supplements, emphasizing the importance of adequate iron intake. - Follow-up labs in 24 weeks to reassess iron levels. 5. 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 Anemia due to vitamin B12 deficiency, unspecified B12 deficiency type (D51.9) Vitamin B12 level is within acceptable range (500s); patient is compliant with B12 supplementation regimen. - Continue current B12 supplementation regimen (1 pill once a week and 1 pill daily). 7. Psoriasis (L40.9) CASE HISTORY: Reverse Chronological Order 10/26/2023 - EUA and pouchoscopy A, B. Pouch, afferent limb and inlet, biopsy: -Active enteritis -Negative for granulomas or dysplasia C. Pouch, body, biopsy: -Chronic mildly active enteritis -Negative for granulomas or dysplasia D. Anus, transitional zone, biopsy: -Predominantly intestinal mucosa with mild active enteritis -Negative for granulomas or dysplasia 12/12/2022 - MRI Pancreas: Postoperative changes distal pancreatectomy with mildly increased size of 1.3 cm cystic lesion in the uncinate process, likely sidebranch IPMN. Decreased postoperative fluid collection and fat necrosis. Hepatic steatosis. 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 Crohn's --s/p 1994, total colectomy, on Entyvio and follows GI HPI: Updated Visit, March 13, 2025: Patient with a history of splenectomy presents for follow-up. Recent lab results show a B12 level of 500 pg/mL and a sodium level of 134 mmol/L. Iron levels are noted to be low. Hemoglobin is currently 12.9 g/dL, improved from previous values of 11.3 g/dL in October 2023 and 9.0 g/dL in December 2021. Platelet count remains elevated, attributed to prior splenectomy. Patient is currently taking a weekly B12 supplement and a daily multivitamin. She reports occasional missed doses of her vitamins and is unsure if she is taking an iron supplement. She denies significant dietary intake of meat. Patient reports feeling well overall and has recently started exercising, riding a bike 10-15 miles per week. She is semi-retired, working two days a week, and enjoys spending time with her grandchildren, ages 13, 11, and 9. (Today) CBC: - Hemoglobin: 12.9 g/dL - Platelets: Elevated - Sodium: 134 mmol/L - B12: Approximately 500 - Iron: Decreased (October 2023) CBC: - Hemoglobin: 11.3 g/dL (December 2021) CBC: - Hemoglobin: 9.0 g/dL Updated Visit, September 05, 2024: Here with Danyel Taking Otezla and plaquenil for psoriasis. Insurance is not covering her intivyo Reviewed labs and explained the thrombocythemia cause in her case. Continue taking iron, folate, B12 supplements. Updated Visit, November 08, 2023: Was admitted with bowel obstruction due to scar tissue from pouch - needed (more content not included)...[facility]08-19-2025 Telephone encounter Note* Telephone Encounter - Mine Delvalle RN - 03/03/2025 3:02 PM EDT Requested Prescriptions Pending Prescriptions Disp Refills ergocalciferol 50,000 unit capsule (VITAMIN D2, DRISDOL) [Pharmacy Med Name: VITAMIN D2 1.25MG(50,000 UNIT)] 12 capsule 1 Sig: TAKE 1 CAPSULE BY MOUTH ONE TIME A WEEK. KELLI 01/26/25 PLAN -Continue Entyvio Q4 weeks, Cipro 2 weeks on/2 weeks off, Lomotil PRN & PPI -Will call her derm office to clarify request for IL23; Dr. Alethea Vickers @ [facility] [phone] -Follow up with Dr. Mittal in Jul as scheduled Latest Ref Rng 09/18/2024 Vitamin D 25 Hydroxy 31.0 - 80.0 ng/mL 30.8 (L) Mine Delvalle RN Full Time Babysitter, IBD [facility]08-19-2025 Miscellaneous Notes* Telephone Encounter - Mine Delvalle RN - 03/03/2025 3:02 PM EDT Requested Prescriptions Pending Prescriptions Disp Refills ergocalciferol 50,000 unit capsule (VITAMIN D2, DRISDOL) [Pharmacy Med Name: VITAMIN D2 1.25MG(50,000 UNIT)] 12 capsule 1 Sig: TAKE 1 CAPSULE BY MOUTH ONE TIME A WEEK. KELLI 7/14/25 PLAN -Continue Entyvio Q4 weeks, Cipro 2 weeks on/2 weeks off, Lomotil PRN & PPI -Will call her derm office to clarify request for IL23; Dr. Alethea Vickers @ [facility] [phone] -Follow up with Dr. Mittal in Jul as scheduled Latest Ref Rng 09/18/2024 Vitamin D 25 Hydroxy 31.0 - 80.0 ng/mL 30.8 (L) Mine Delvalle RN Full Time Babysitter, IBD documented in this encounterUniversity Hospitals Lake [facility] Center07-14-2025 Telephone encounter Note * Telephone Encounter - Tomasa Wakefield APRN.CNP - 01/26/2025 12:30 PM EDT Got call back from nurse in office. She will send message to provider to clarify. States pt is alsotaking plaquenil which I do not have on our end and unsure who is prescribing. She will call me back when she has more info. [facility]07-14-[facility]25 Miscellaneous Notes* Telephone Encounter - Tomasa Wakefield APRN.CNP - 01/26/2025 12:30 PM EDT Got call back from nurse in office. She will send message to provider to clarify. States pt is alsotaking plaquenil which I do not have on our end and unsure who is prescribing. She will call me back when she has more info. * Telephone Encounter - Tomasa Wakefield APRN.CNP - 01/26/2025 12:01 PM EDT Called her derm office to get clarification on request to start IL23 - Dr. Alethea Vickers @ [facility] [phone] - left message requesting call back with my work cell number provided. documented in this encounterUniversity Hospitals Lake [facility] Center07-14-2025 Telephone encounter Note * Telephone Encounter - Tomasa Wakefield APRN.CNP - 01/26/2025 12:01 PM EDT Called her derm office to get clarification on request to start IL23 - Dr. Alethea Vickers @ [facility] - [phone] - shhz message requesting call back with my work cell number provided. [facility]07-14-2025 NoteHNO ID: [id number] Author: TOMASA WAKEFIELD APRN.CNP Service: ? Author Type: Nurse Practitioner Type: Progress Notes Filed: 01/26/2025 11:58 Note Text: VIRTUAL VISIT FOLLOW UP Laura Stephenson [id number] has requested a video telemedicine follow-up visit. Laura Stephenson verbalized informed consent to proceed with the video telemedicine follow-up visit. Laura Stephenson was informed that the details of this video visit would be recorded as part of their electronic medical record. I have communicated my name and active licensure. The patient's identity and physical location were verified at the time of this visit. Either the patient or their legal parts representative has been informed of the risks and benefits of -- and alternatives to -- treatment through a remote evaluation and consents to proceed with the evaluation remotely. Patient location at time of call: Home Additional encounter participants and relationship: None Patient presents with: IBD Follow Up I had a virtual visit with Ms. Stephenson today for follow up of UC s/p IPAA. UPDATED HISTORY: -Entyvio Q4 weeks due Sunday -Cipro 2 weeks on/2 weeks off Pouch History Template Pouch History Disease Type: Ulcerative Colitis Medications PRIOR to Pouch Surgery: Corticosteroids and 5-ASA Date of Pouch Creation (Mo/Year): 1994 Pouch Indication: Medically refractory disease Type of Pouch: J pouch (IPAA) Number of Pouch Operative Stages: 2 (proctocolectomy + pouch creation + diverting ileostomy, subsequent ileostomy takedown) Pouch Complications: Crohn's-like disease of Pouch Medications Received AFTER Pouch Surgery: Antibiotics Date of Last Pouchoscopy (Mo/Year): 2024 Current Pouch Symptoms Average number of bowel movements in 24 hour period: 5-6 Stool Frequency: Usual stool frequency since pouch surgery Rectal Bleeding: None or rare Fecal Urgency: None Abdominal Cramps: None Fever (>100 F) in last 24 hours: No Number of nocturnal bowel movements: 0 Incontinence or Fecal Accidents in last week: None Anti-Diarrheal use: Yes Fecal Seepage:No Use of Pads/Adult Diapers: Yes EIMs +psoriasis which has improved on Otezla Rare NSAIDs Denies smoking PAST MEDICAL HISTORY Diagnosis Date Arthritis Chronic pain of left knee 12/09/2021 Diabetes mellitus (HCC) History of transfusion HTN (hypertension) Hypothyroidism Lichen sclerosus Rheumatoid arthritis (HCC) UC (ulcerative colitis) (HCC) PAST SURGICAL HISTORY Procedure Laterality Date ABDOMINAL SURGERY HX CHG DELIVERY PAST SURGICAL HISTORY OF 1994 2 stage j-pouch PAST SURGICAL HISTORY OF abdominal hernia x2 PICC LINE INSERT/CONSULT 12/23/2021 FAMILY HISTORY Problem Relation Age of Onset Anesthesia Problems No Family History Social History Tobacco Use Smoking status: Never Smokeless tobacco: Never Vaping Use Vaping status: Never Used Substance Use Topics Alcohol use: Yes Comment: ocassionally Drug use: Never Current Outpatient Medications Medication Sig Dispense Refill ciprofloxacin HCl (CIPRO) 500 mg tablet Take 1 tablet by mouth two times a day. Two weeks; Two week off 84 tablet 0 rosuvastatin (CRESTOR) 5 mg tablet Take 1 tablet by mouth once daily. folic acid 1 mg tablet TAKE 1 TABLET BY MOUTH EVERY DAY 90 tablet 3 diphenoxylate-atropine (LOMOTIL) 2.5-0.025 mg per tablet TAKE 1 TABLET BY MOUTH 3 OR 4 TIMES DAILY NEEDED 120 tablet 3 vedolizumab (ENTYVIO) 300 mg injection Infuse 300 mg at week 0, 2, 6, then every 8 weeks thereafter. 8 Each 6 ergocalciferol 50,000 unit capsule (VITAMIN D2, DRISDOL) Take 1 capsule by mouth one time a week. 12 capsule 1 Cholecalciferol, Vitamin D3, (VITAMIN D) 25 mcg (1,000 unit) cap Take 1 capsule by mouth once daily. atenolol (TENORMIN) 25 mg tablet Take 1 [...] and notify provider. 5 Pen 2 Insulin [place], Disposable, (BD ULTRA-FINE MIN PEN NEEDLE) 32 gauge x 5/32 1 Each three times daily. 100 Each 2 blood sugar diagnostic (ONETOUCH VERIO TEST STRIPS) test strip Use as instructed three times daily 100 Strip 2 giulia (more content not included)...[facility]07-14-2025 History of Present illness Narrative* Tomasa Wakefield, DARBY.SEED SERVICE ADVISOR - 01/26/2025 11:31 AM EDT VIRTUAL VISIT FOLLOW UP Laura Stephenson [phone] has requested a video telemedicine follow-up visit. Laura Stephenson verbalized informed consent to proceed with the video telemedicine follow-up visit. Laura Stephenson was informed that the details of this video visit would be recorded as part of their electronic medical record. I have communicated my name and active licensure. The patient's identity and physical location wereverified at the time of this visit. Either the patient or their legal parts representative has been informed of the risks and benefits of -- and alternatives to -- treatment through a remote evaluation andconsents to proceed with the evaluation remotely. Patient location at time of call: Home Additional encounter participants and relationship: None Patient presents with: IBD Follow Up I had a virtual visit with Ms. Stephenson today for follow up of UC s/p IPAA. UPDATED HISTORY: -Entyvio Q4 weeks due Sunday -Cipro 2 weeks on/2 weeks off Pouch History Template Pouch History Disease Type: Ulcerative Colitis Medications PRIOR to Pouch Surgery: Corticosteroids and 5-ASA Date of Pouch Creation (Mo/Year): 1994 Pouch Indication: Medically refractory disease Type of Pouch: J pouch (IPAA) Number of Pouch Operative Stages: 2 (proctocolectomy + pouch creation + diverting ileostomy, subsequent ileostomy takedown) Pouch Complications: Crohn's-like disease of Pouch Medications Received AFTER Pouch Surgery: Antibiotics<Budesonide, Vedolizumab Date of Last Pouchoscopy (Mo/Year): 2024 Current Pouch Symptoms Average number of bowel movements in 24 hour period: 5-6 Stool Frequency: Usual stool frequency since pouch surgery Rectal Bleeding: None or rare Fecal Urgency: None Abdominal Cramps: None Fever (>100 F) in last 24 hours: No Number of nocturnal bowel movements: 0 Incontinence or Fecal Accidents in last week: None Anti-Diarrheal use: Yes Fecal Seepage:No Use of Pads/Adult Diapers: Yes EIMs +psoriasis which has improved on Otezla Rare NSAIDs Denies smoking PAST MEDICAL HISTORY Diagnosis Date Arthritis Chronic pain of left knee 12/09/2021 Diabetes mellitus (HCC) History of transfusion HTN (hypertension) Hypothyroidism Lichen sclerosus Rheumatoid arthritis (HCC) UC (ulcerative colitis) (HCC) PAST SURGICAL HISTORY Procedure Laterality Date ABDOMINAL SURGERY HX CHG DELIVERY PAST SURGICAL HISTORY OF 1994 2 stage j-pouch PAST SURGICAL HISTORY OF abdominal hernia x2 PICC LINE INSERT/CONSULT 12/23/2021 FAMILY HISTORY Problem Relation Age of Onset Anesthesia Problems No Family History Social History Tobacco Use Smoking status: Never Smokeless tobacco: Never Vaping Use Vaping status: Never Used Substance Use Topics Alcohol use: Yes Comment: ocassionally Drug use: Never Current Outpatient Medications Medication Sig Dispense Refill ciprofloxacin HCl (CIPRO) 500 mg tablet Take 1 tablet by mouth two times a day. Two weeks; Two weekoff 84 tablet 0 rosuvastatin (CRESTOR) 5 mg tablet Take 1 tablet by mouth once daily. folic acid 1 mg tablet TAKE 1 TABLET BY MOUTH EVERY DAY 90 tablet 3 diphenoxylate-atropine (LOMOTIL) 2.5-0.025 mg per tablet TAKE 1 TABLET BY MOUTH 3 OR 4 TIMES DAILY NEEDED 120 tablet 3 vedolizumab (ENTYVIO) 300 mg injection Infuse 300 mg at week 0, 2, 6, then every 8 weeks thereafter. 8 Each 6 ergocalciferol 50,000 unit capsule (VITAMIN D2, DRISDOL) Take 1 capsule by mouth one time a week. 12 capsule 1 Cholecalciferol, Vitamin D3, (VITAMIN D) 25 mcg (1,000 unit) cap Take 1 capsule by mouth once daily. atenolol (TENORMIN) 25 mg tablet Take 1 [...] and notify provider. 5 Pen 2 Insulin [place], Disposable, (BD ULTRA-FINE MIN PEN NEEDLE) 32 gauge x 5/32 1 Each three times daily. 100 Each 2 blood sugar diagnostic (ONETOUCH VERIO TEST STRIPS) test strip Use as instructed three times daily 100 Strip 2 lancets (ONETOUCH DELICA PLUS LANCET) 33 gauge 1 Each three times daily. 100 Each 2 vedolizumab (ENTYVIO) 300 mg injection Infuse 300 mg every 4 weeks. 1 Each 5 Lactobacillus acidophilus (PROBIOTIC ORAL) Take by mouth. [...] Penicillins Sulfa (Sulfonamide * Unknown Vancomycin Rash PHYSICAL FINDINGS OF NOTE: General: alert and appropriate, in no distress and well-hydrated, well nourished , Psych: Appropriate mood and interaction Respiratory: breathing non-labored, and no grunting/flaring/retractions, Chest: equal chest rise with normal respiratory effort, Neuro: Patient seen sitting with normal appearing strength and coordination REVIEWED ITEMS CBC: WBC (k/uL) Date Value 08/29/2024 7.01 Hematocrit (%) Date Value 08/29/2024 40.7 MCV (fL) Date Value 08/29/2024 90.8 Platelet Count (k/uL) Date Value 08/29/2024 502 (H) Lymphocytes % (%) Date Value 08/29/2024 29.2 Hepatic Function Panel: Albumin (g/dL) Date Value 08/29/2024 4.3 Bilirubin, Total (mg/dL) Date Value 08/29/2024 0.4 Alkaline Phosphatase (U/L) Date Value 08/29/2024 74 AST (U/L) Date Value 08/29/2024 14 ALT (U/L) Date Value 08/29/2024 12 Protein, Total (g/dL) Date Value 08/29/2024 6.7 Assessment IMPRESSION (portions of this note have been copied from my prior note and updated to reflect medical decision making today) 64 year old female with history of ulcerative colitis s/p IPAA creation in 1994 (2 stage). She started to experience partial small bowel obstruction in 2020. 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 Underwent pouchoscopy 2021 which revealed pre-pouch, pouch inlet, and pouch inflammation. Was started on Cipro and responded very well. Continued to be on Entvyio q 4 weeks and cycled between 2 weeks on/off Cipro. Recent pouchoscopy with improvement in inflammation & she is doing well clinically. She is on Otzela for psoriasis but brings up that her derm may want her on IL23. PLAN -Continue Entyvio Q4 weeks, Cipro 2 weeks on/2 weeks off, Lomotil PRN & PPI -Will call her derm office to clarify request for IL23; Dr. Alethea Vickers @ [facility] - [phone] -Follow up with Dr. Mittal in Jul as scheduled Medical Decision Making: Problems: Moderate: 2+ stable chronic illnesses Data: Unique test result(s) reviewed: 2 Risk: Moderate: Drug management Medical Decision Making Level: 4 - Moderate Tomasa Wakefield APRN.CNP January 26, 2025 11:31 AM documented in this encounterUniversity [facility]07-[facility]25 Telephone encounter Note * Telephone Encounter - Janell Gallo RN - 01/19/2025 3:32 PM EDT Requested Prescriptions Pending Prescriptions Disp Refills ciprofloxacin HCl (CIPRO) 500 mg tablet 84 tablet 0 Sig: Take 1 tablet by mouth two times a day. Two weeks; Two week off Last visit:09/18/2024 PLAN - Continue Entvyio q 4 weeks. Will talk to the nurses re insurance approval - Continue Cipro 2 weeks on/off - Schedule pouchoscopy - Check labs at this time - Educated patient on physical exercise, healthy diet, and adequate water intake - Follow up virtually after scope unless needed sooner Forwarding request to covering provider. Janell Gallo RN January 19, 2025 3:33 PM [facility]07-07-2025 Miscellaneous Notes* Telephone Encounter - Janell Gallo RN - 01/19/2025 3:32 PM EDT Requested Prescriptions Pending Prescriptions Disp Refills ciprofloxacin HCl (CIPRO) 500 mg tablet 84 tablet 0 Sig: Take 1 tablet by mouth two times a day. Two weeks; Two week off Last visit:09/18/2024 PLAN - Continue Entvyio q 4 weeks. Will talk to the nurses re insurance approval - Continue Cipro 2 weeks on/off - Schedule pouchoscopy - Check labs at this time - Educated patient on physical exercise, healthy diet, and adequate water intake - Follow up virtually after scope unless needed sooner Forwarding request to covering provider. Janell Gallo RN January 19, 2025 3:33 PM * Telephone Encounter - Uli Lisa - 01/19/2025 11:19 AM EDT Patient called in requesting a refill of Ciprofloxacin HCL (Cipro) medication. She would like medication to be sent to the pharmacy listed below. e- [id number] - [place] [address] - [address] [facility] [phone] [place] [address] [phone] [place] [id number] Lisa W Hand Drawer In documented in this encounterUniversity Hospitals Lake [facility]07-07-2025 Telephone encounter Note * Telephone Encounter - Henry Mcnallynah - 01/19/2025 11:19 AM EDT Patient called in requesting a refill of Ciprofloxacin HCL (Cipro) medication. She would like medication to be sent to the pharmacy listed below. e- [id number] [place] [address] [address] [facility] [phone] [place] [address] [address] [facility] [id number] Lisa W Hand Drawer In [facility]07-01-2025 Nurse Note* Brooke Neri RN - 01/13/2025 9:06 AM EDT AMBULATORY PATIENT EDUCATION NOTE TOPIC: GI PROCEDURES: pouchoscopy READINESS TO LEARN INSTRUCTION PROVIDED TO: Patient, readness to learn accessed prior to procedure COGNITIVE ABILITY: Alert and oriented PTED MOTIVATION TO LEARN: Interested FAMILY SUPPORT: High - Very involved in pt care IPATIENT LEARNS BEST BY: Individual Instruction FACTORS AFFECTING LEARNING: None PHYSICAL LIMITATIONS AFFECTING LEARNING: None LEARNING RESPONSE METHOD OF INSTRUCTION: Individual instruction PATIENT / FAMILY RESPONSE: Verbalizes understanding of: WORSENING CONDITION- Signs and symptoms of aworsening condition that warrant a call to the physician FOLLOW-UP PLAN: Complete - No need for follow-up SUPPLEMENTAL MATERIAL: Procedure Discharge Instructions REFERRAL (RECOMMENDATION): None [facility]07-01-2025 Nurse Note* Brooke Neri RN - 01/13/2025 9:06 AM EDT AMBULATORY PATIENT EDUCATION NOTE TOPIC: GI PROCEDURES: pouchoscopy READINESS TO LEARN INSTRUCTION PROVIDED TO: Patient, readness to learn accessed prior to procedure COGNITIVE ABILITY: Alert and oriented PTED MOTIVATION TO LEARN: Interested FAMILY SUPPORT: High - Very involved in pt care IPATIENT LEARNS BEST BY: Individual Instruction FACTORS AFFECTING LEARNING: None PHYSICAL LIMITATIONS AFFECTING LEARNING: None LEARNING RESPONSE METHOD OF INSTRUCTION: Individual instruction PATIENT / FAMILY RESPONSE: Verbalizes understanding of: WORSENING CONDITION- Signs and symptoms of aworsening condition that warrant a call to the physician FOLLOW-UP PLAN: Complete - No need for follow-up SUPPLEMENTAL MATERIAL: Procedure Discharge Instructions REFERRAL (RECOMMENDATION): None * Hannah Wilson RN - 01/13/2025 8:08 AM EDT PRE OP LEARNING ASSESSMENT PROCEDURE/SURGERY: GI PROCEDURES: pouchoscopy READINESS TO LEARN COGNITIVE ABILITY: Alert and oriented MOTIVATION TO LEARN: Interested FAMILY SUPPORT: Moderate - Family present but overwhelmed PATIENT LEARNS BEST BY: Individual Instruction Verbal Instruction FACTORS AFFECTING LEARNING: None PHYSICAL LIMITATIONS AFFECTING LEARNING: None Electronically Signed By: Hannah Wilson RN In Department: GASTROENTEROLOGY documented in this encounterUniversity Hospitals [facility]07-01-2025 Nurse Note* Hannah Wilson RN - 01/13/2025 8:08 AM EDT PRE OP LEARNING ASSESSMENT PROCEDURE/SURGERY: GI PROCEDURES: pouchoscopy READINESS TO LEARN COGNITIVE ABILITY: Alert and oriented MOTIVATION TO LEARN: Interested FAMILY SUPPORT: Moderate - Family present but overwhelmed PATIENT LEARNS BEST BY: Individual Instruction Verbal Instruction FACTORS AFFECTING LEARNING: None PHYSICAL LIMITATIONS AFFECTING LEARNING: None Electronically Signed By: aHnnah Wilson RN In Department: GASTROENTEROLOGY [facility]06-07-2025 NoteHNO ID: [id number] Author: THERON HARRIS MD Service: ? 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 Heart Reg Breathing comfortably on RA Direct review of MRI notable for SB-IPMN without worrisome features in the remnant pancreas A/P: IPMN, no worrisome features Plan for MRI pancreas in 1 year Medical Decision Making: Problems: Low: Stable chronic illness Data: Unique test result(s) reviewed: 1 Unique test(s) ordered: 1 Medical Decision Making Level: 3 - Low Theron Harris MD * Mandy Aguirre - 12/19/2024 3:58 PM EDT What is the reason for your visit today? est Who is your referring physician? Cherri Krishna Are you having poor oral intake? NO Have you had unintentional weight loss of 15 lbs/7 Kg in the last 3-6 months? NO Bowels: regular Wound: clean & dry Temperature: No Drains: No documented in this encounterUniversity Hospitals Lake [facility] Center06-06-2025 NoteHNO ID: [id number] Author: ?, ?, ? Service: ? Author Type: ? Type: Progress Notes Filed: 12/20/2024 13:02 Note Text: What is the reason for your visit today? est Who is your referring physician? Cherri Krishna Are you having poor oral intake? NO Have you had unintentional weight loss of 15 lbs/7 Kg in the last 3-6 months? NO Bowels: regular Wound: clean AND dry Temperature: No Drains: [facility]05-29-2025 History of Present illness Narrative* Mason Caraballo RN - 12/11/2024 10:30 AM EDT Radiology Service Progress Note DATE OF SERVICE: December 11, 2024 TIME: 9:48 AM PATIENT WEIGHT: 205LBS PATIENT IDENTITY VERIFICATION COMPLETED USING TWO (2) STANDARD IDENTIFIERS: Name and Date of confirmed by patient verbally and Name and Date of confirmed by identification band. FALL SCREENING: Has the patient had 2 falls in the last year or 1 fall with injury or currently using an Ambulatory Assistive Device (Walker, Cane, Wheelchair, Crutches, etc.)? No PATIENT GENDER DATA: Assigned female at . status: : No status:N/A ALLERGIES: Reviewed and unchanged CONTRAST ALLERGY: No EXAM: MRI - CONTRAST TYPE: GROUP II IV SITE: Ambulatory: A peripheral IV was started in the Left antecubital site with a Angio cath: 22gauge. IV SITE APPEARANCE: Clean,Dry and Intact SIGNATURE: Mason Caraballo RN PATIENT NAME: Laura Stephenson DATE: December 11, 2024 TIME: 9:48 AM * Geovanni Nunez RT(R) - 12/11/2024 10:30 AM EDT Radiology Service Progress Note PATIENT NAME: Laura Stephenson DATE OF SERVICE: December 11, 2024 TIME: 11:18 AM PATIENT IDENTITY VERIFICATION COMPLETED USING TWO (2) IDENTIFIERS: Name and Date of confirmedby patient verbally and Name and Date of confirmed by identification band. FALL SCREENING: Has the patient had 2 falls in the last year or 1 fall with injury or currently using an Ambulatory Assistive Device (Walker, Cane, Wheelchair, Crutches, etc.)? No PATIENT GENDER DATA: Assigned female at . status: : No status:NO. PATIENT RELEVANT IMPLANT DATA REVIEWED: Yes PATIENT PRESENTS WITH AN IMPLANTABLE OR ATTACHED TUBER OPERATOR: No RADIOLOGY DEPARTMENT: MR; Exam(s) Completed: Body: Pancreas/Biliary. Lavender Administered: No PERIPHERAL IV DATA: Site assessment: Clean,Dry and Intact, Site disposition Discontinued SIGNED BY: RT Frandy(R) December 11, 2024 11:18 AM documented in this encounterUniversity Hospitals Lake [facility] Center05-29-2025 NoteHNO ID: [id number] Author: MASON CARABALLO RN Service: Radiology Author Type: Registered Nurse Type: Progress Notes Filed: 12/11/2024 10:15 Note Text: Radiology Service Progress Note DATE OF SERVICE: December 11, 2024 TIME: 9:48 AM PATIENT WEIGHT: 205LBS PATIENT IDENTITY VERIFICATION COMPLETED USING TWO (2) STANDARD IDENTIFIERS: Name and Date of confirmed by patient verbally and Name and Date of confirmed by identification band. FALL SCREENING: Has the patient had 2 falls in the last year or 1 fall with injury or currently using an Ambulatory Assistive Device (Walker, Cane, Wheelchair, Crutches, etc.)? No PATIENT GENDER DATA: Assigned female at . status: : No status: N/A ALLERGIES: Reviewed and unchanged CONTRAST ALLERGY: No EXAM: MRI - CONTRAST TYPE: GROUP II IV SITE: Ambulatory: A peripheral IV was started in the Left antecubital site with a Angio cath: 22 gauge. IV SITE APPEARANCE: Clean,Dry and Intact SIGNATURE: Mason Caraballo RN PATIENT NAME: Laura Stephenson DATE: December 11, 2024 TIME: 9:48 [facility]05-29-2025 NoteHNO ID: [id number] Author: GEOVANNI NUNEZ RT(R) Service: Radiology Author Type: Technologist Type: Progress Notes Filed: 12/11/2024 11:18 Note Text: Radiology Service Progress Note PATIENT NAME: Laura Stephenson DATE OF SERVICE: December 11, 2024 TIME: 11:18 AM PATIENT IDENTITY VERIFICATION COMPLETED USING TWO (2) IDENTIFIERS: Name and Date of confirmed by patient verbally and Name and Date of confirmed by identification band. FALL SCREENING: Has the patient had 2 falls in the last year or 1 fall with injury or currently using an Ambulatory Assistive Device (Walker, Cane, Wheelchair, Crutches, etc.)? No PATIENT GENDER DATA: Assigned female at . status: : No status: NO. PATIENT RELEVANT IMPLANT DATA REVIEWED: Yes PATIENT PRESENTS WITH AN IMPLANTABLE OR ATTACHED TUBER OPERATOR: No RADIOLOGY DEPARTMENT: MR; Exam(s) Completed: Body: Pancreas/Biliary. Lavender Administered: No PERIPHERAL IV DATA: Site assessment: Clean,Dry and Intact, Site disposition Discontinued SIGNED BY: RT Frandy(R) December 11, 2024 11:18 [facility]05-27-2025 Evaluation note* Diagnosis Onset Date Resolution Status Admit Date Elevated LDL cholesterol level acuteMay 2024 4:27pmHypomagnesemiaacuteMay 2024 4:27pmLong term (current) use of insulinacuteMay 2024 4:27pmType 2 diabetes mellitus with other circulatory complicationsacuteMay 2024 4:27pmBMI 34.0-34.9,adult acuteAugust 2024 9:34amDietary counseling and surveillanceacuteAugust 2024 9:34amHyperlipidemiaacuteAugust 2024 9:34amHypertensionacuteAugust 2024 9:34amType 2 diabetes mellitusacuteAugust 2024 9:34am [facility] Work Phone: 1(392) 296-459505-09-2025 Telephone encounter Note* Telephone Encounter - Dia Sanchez APRN.CNP - 11/21/2024 1:52 PM EDT The following approved medication requests have been transmitted electronically. Requested Prescriptions Signed Prescriptions Disp Refills folic acid 1 mg tablet 90 tablet 3 Sig: TAKE 1 TABLET BY MOUTH EVERY DAY Authorizing Provider: DIA SANCHEZ APRN.CNP [facility]05-09-2025 Miscellaneous Notes* Telephone Encounter - Dia Sanchez APRN.CNP - 11/21/2024 1:52 PM EDT The following approved medication requests have been transmitted electronically. Requested Prescriptions Signed Prescriptions Disp Refills folic acid 1 mg tablet 90 tablet 3 Sig: TAKE 1 TABLET BY MOUTH EVERY DAY Authorizing Provider: DIA SANCHEZ APRN.CNP documented in this encounterUniversity Hospitals Lake [facility] Center04-21-2025 Evaluation note* Diagnosis Onset Date Resolution Status Admit Date BMI 34.0-34.9,adult acuteApril 2024 7:55amDietary counseling and surveillanceacuteApril 2024 7:55amHyperlipidemiaacuteApril 2024 7:55amHypertensionacuteApril 2024 7:55amType 2 diabetes mellitusacuteApril 2024 7:55am [facility] Work Phone: 1(312) 756-318404-21-2025 Evaluation note* Diagnosis Onset Date Resolution Status Admit Date BMI 34.0-34.9,adult acuteApril 2024 7:55amDietary counseling and surveillanceacuteApril 2024 7:55amHyperlipidemiaacuteApril 2024 7:55amHypertensionacuteApril 2024 7:55amType 2 diabetes mellitusacuteApril 2024 7:55amElevated LDL cholesterol levelacuteMay 2024 4:27pmLong term (current) use of insulinacuteMay 2024 4:27pmType 2 diabetes mellitus with other circulatory complicationsacuteMay 2024 4:27pm [facility] Work Phone: 1(443) 153-239403-31-2025 Telephone encounter Note* Telephone Encounter - Michaela Camara - 10/13/2024 11:17 AM EDT [facility] Pharmacy called Patient Veronique is not covered by the plan even with a PA They reached out to patients insurance company to see what would be covered and they listed the following [facility]sola Remicade Skyrizi Stelara These will require a PA but are on patient formulary. [facility] need [facility] sent Provided a fax number of [phone] [facility]03-31-2025 Miscellaneous Notes* Telephone Encounter - Michaela Camara - 10/13/2024 11:17 AM EDT [facility] called Patient Veronique is not covered by the plan even with a PA They reached out to patients insurance [employer] to see what would be covered and they listed the following Avsola Remicade Skyrizi Stelara These will require a PA but are on patient formulary. [facility] will need [facility] new RX sent Provided a fax number of [phone] documented in this encounterUniversity Hospitals [facility]03-[facility]-2025 Telephone encounter Note * Telephone Encounter - Janell Gallo RN - 10/09/2024 2:50 PM EDT Received the [place] [facility] [place] Hi Patient is approved. We are trying to get a hold of her. Attempted to reach pt. No answer. [facility] Janell Gallo RN October 09, 2024 2:52 PM [facility]03-27-2025 Miscellaneous Notes* Telephone Encounter - Janell Gallo RN - 10/09/2024 2:50 PM EDT Received the following update from [facility] [place] Hi Patient is approved. We are trying to get a hold of her. Attempted to reach pt. No answer. [facility] Janell Gallo RN October 09, 2024 2:52 PM * Telephone Encounter - Janell Gallo RN - 09/30/2024 3:15 PM EDT Contacted pt and provided an update regarding [facility]. PA still in process for Entyvio. Janell Gallo RN September 30, 2024 3:16 PM * Telephone Encounter - Vicky Emanuel - 09/30/2024 12:21 PM EDT Patient called in - requesting to talk with Janell please call her when you have a moment Pt documented in this encounterUniversity [facility]als [facility]03-[facility]25 Telephone encounter Note * Telephone Encounter - Janell Gallo RN - 09/30/2024 3:15 PM EDT Contacted pt and provided an update regarding [facility]. PA still in process for Entyvio. Janell Gallo RN September 30, 2024 3:16 PM [facility]03-18-2025 Telephone encounter Note* Telephone Encounter - Vicky Emanuel - 09/30/2024 12:21 PM EDT Patient called in - requesting to talk with Janell please call her when you have a moment Pt [facility] Work Phone: [phone] Telephone encounter Note* Telephone Encounter - Tomasa Wakefield APRN.CNP - 09/18/2024 1:47 PM EST This gal says she has not had Entyvio since Apr. Was supposed to be getting every 4 weeks through [facility]. Let us know so we can figure out if she needs re- induction or should just go back to every 4, thanks! [facility]03-06-2025 Miscellaneous Notes* Telephone Encounter - Tomasa Wakefield APRN.CNP - 09/18/2024 1:47 PM EST This gal says she has not had Entyvio since Apr. Was supposed to be getting every 4 weeks through [facility]. Let us know so we can figure out if she needs re- induction or should just go back to every 4, thanks! documented in this encounterUniversity Hospitals [facility]03-06-2025 Instructions* Patient Instructions* Kate Grier PA-C - 09/18/2024 1:41 PM EST As discussed, my recommendations are the following: Check labs today Schedule pouchoscopy Will message you regarding Entvyio infusions Follow up after scope unless needed sooner Thanks! Kate Grier PA-C documented in this encounterUniversity Hospitals [facility]03-06-2025 History of Present illness Narrative* Tomasa Wakefield, DARBY.SEED SERVICE ADVISOR - 09/18/2024 1:00 PM EST .Follow Up Visit SUBJECTIVE 64 year old female with ulcerative colitis here for follow-up. Last seen 01/10/2024. Changes and test results since last visit: Patient presents today for a follow up. States she is doing okay. Has not had Entvyio since April2024 due to insurance reasons. States she has not noticed a change in GI symptoms since April, but her psorasis has been flaring up. Currently off cipro. Also reports 15 pound weight gain since last visit. She has started the gym but wants to discuss if she can start back on weight loss medication. Was on Moujaro but stopped 03/2024. Current Clinical Symptoms # of bowel movements daily: 6 # of liquid stools daily: 0 Consistency: soft, mushy Bloody bowel movements: no Urgency: no Abdominal pain: no Abdominal distention: no Nausea/vomiting: no Weight loss over last 3 months: no General well-being: very well EIMs: joint (left knee) NSAIDs: takes advil every 3-4 months. Denies smoking Denies ETOH Pouch History Disease Type: Ulcerative Colitis Medications PRIOR to Pouch Surgery: Corticosteroids and 5-ASA Date of Pouch Creation (Mo/Year): 1994 Pouch Indication: Medically refractory disease Type of Pouch: J pouch (IPAA) Number of Pouch Operative Stages: 2 (proctocolectomy + pouch creation + diverting ileostomy, subsequent ileostomy takedown) Pouch Complications: Crohn's-like disease of Pouch Medications Received AFTER Pouch Surgery: Antibiotics<Budesonide, Vedolizumab Date of Last Pouchoscopy (Mo/Year): 03/2023 Reviewed Items: POUCHOSCOPY (12/27/2023): IMPRESSION: - Anal stricture found on digital rectal exam. - Rectal cuff with healthy appearing mucosa seen. Biopsied. - Mild pouchitis, with erosions/ulcerations of only 10% of the pouch, involving both the pouch bodyand anastomotic lines, improved. This was mild in severity and graded as Pouchitis Disease ActivityIndex (Endoscopic) Score 2. Biopsied. - Pouch inlet inflammation with narrowing but no stenosis. Overall stable, compared to prior and likely parts representative of ischemic ileitis - Inflammation was found in the pre-pouch ileum secondary to inflammatory bowel disease vs stasis associated changes. Biopsied. PATHOLOGY: FINAL DIAGNOSIS A. Small bowel, ileum, biopsy: - Mild chronic active enteritis. B. Pouch, inlet, biopsy: - Mild chronic active enteritis. C. Pouch, biopsy: - Mild chronic active enteritis. D. Rectum, cuff, biopsy: - Chronic inactive colitis. POUCHOSCOPY (10/26/2023): IMPRESSION: - Anal stricture found on digital exam. - Inflammation was found at the pouch inlet secondary to pouchitis. Biopsied. - Inflammation was found in the pre-pouch ileum. Biopsied. - Stricture in the afferent limb. PATHOLOGY: FINAL DIAGNOSIS A. Pouch, afferent limb, biopsy: -Active enteritis -Negative for granulomas or dysplasia B. Pouch, inlet, biopsy: -Active enteritis -Negative for granulomas or dysplasia C. Pouch, body, biopsy: -Chronic mildly active enteritis -Negative for granulomas or dysplasia D. Anus, transitional zone, biopsy: -Predominantly intestinal mucosa with mild active enteritis -Negative for granulomas or dysplasia POUCHOSCOPY (03/27/2023): IMPRESSION: - Anal stricture found on digital rectal exam. - Rectal cuff with healthy appearing mucosa seen. Biopsied. - Mild pouch inflammation with ulceration of nearly 10% of the pouch. - Inflammation most severe at the pouch inlet with circumferential inflammation and narrowing of the pouch inlet, but no stricture, characterized by pseudopolyps. Three of the pseudopolyps were removed to open the inlet. - Mild to moderate inflammation of the pre-pouch ileum, with ulceration. Inflammation most severe in the immediate pre-pouch ileum proximal to the pouch inlet. Pre-pouch ileum >10cm from the pouchinlet sparingly inflamed with few ulcers. - Overall appearance is stable, and would continue current vedolizumab, and consider addition of antibiotics as needed. PATHOLOGY: FINAL DIAGNOSIS A. Ileum, pre-pouch, biopsy: - Chronic severely active enteritis with detached ulcer debris (see comment). - Negative for granuloma, pyloric gland metaplasia, and dysplasia. B. Pouch, biopsy: - Chronic moderately active enterocolitis. - Negative for granuloma, pyloric gland metaplasia, and dysplasia. C. Rectum: Biopsy: - Focal mildly active colitis with focal architectural distortion and focal Paneth cell metaplasia. - Negative for granuloma and dysplasia. D. Pouch, inlet, polyp x 3, polypectomy: - Fragments of inflammatory-type polyps with pyloric glandmetaplasia (see comment). - Negative for dysplasia. CBC: WBC (k/uL) Date Value 08/29/2024 7.01 Hematocrit (%) Date Value 08/29/2024 40.7 MCV (fL) Date Value 08/29/2024 90.8 Platelet Count (k/uL) Date Value 08/29/2024 502 (H) Lymphocytes % (%) Date Value 08/29/2024 29.2 Hepatic Function Panel: Albumin (g/dL) Date Value 08/29/2024 4.3 Bilirubin, Total (mg/dL) Date Value 08/29/2024 0.4 Alkaline Phosphatase (U/L) Date Value 08/29/2024 74 AST (U/L) Date Value 08/29/2024 14 ALT (U/L) Date Value 08/29/2024 12 Protein, Total (g/dL) Date Value 08/29/2024 6.7 Current Outpatient Medications Medication Sig Dispense Refill diphenoxylate-atropine (LOMOTIL) 2.5-0.025 mg per tablet TAKE 1 TABLET BY MOUTH 3 OR 4 TIMES DAILY NEEDED 120 tablet 3 Cholecalciferol, Vitamin D3, (VITAMIN D) 25 mcg (1,000 unit) cap Take 1 capsule by mouth once daily. spironolactone (ALDACTONE) 25 mg tablet Take 1 [...] and notify provider. 5 Pen 2 Insulin [place], Disposable, (BD ULTRA-FINE MIN PEN NEEDLE) 32 gauge x 5/32 1 Each three times daily. 100 Each 2 blood sugar diagnostic (ONETOUCH VERIO TEST STRIPS) test strip Use as instructed three times daily 100 Strip 2 lancets (ONETOUCH DELICA PLUS LANCET) 33 gauge 1 Each three times daily. 100 Each 2 vedolizumab (ENTYVIO) 300 mg injection Infuse 300 mg every 4 weeks. 1 Each 5 Lactobacillus acidophilus (PROBIOTIC ORAL) Take by mouth. Omeprazole 40 mg capsule Take 40 mg by mouth once daily. FLUoxetine (PROZAC) 20 mg capsule Take 20 mg by mouth once daily. ciprofloxacin HCl (CIPRO) 500 mg tablet Take 1 tablet by mouth two times a day. Two weeks; Two weekoff 84 tablet 0 atenolol (TENORMIN) 25 mg tablet Take 1 tablet by mouth once daily. 30 tablet 0 levothyroxine (SYNTHROID) 150 mcg tablet Take 1 tablet by mouth once daily. 30 tablet 0 No current facility-administered medications for this visit. ALLERGIES Allergen Reactions Azithromycin Unknown Metronidazole Itching Itching and redness Naproxen Penicillins Sulfa (Sulfonamide * Unknown Vancomycin Rash PHYSICAL EXAMINATION Ht 5' 5 (1.65m) Wt 200 lb (90.7kg) LMP 02/23/2011 BMI 33.28 kg/(m^2). General Appearance: alert, oriented x 3, pleasant and in no acute distress Heart:regular rate and rhythm, no murmurs or gallops Lungs: clear & equal BL Abdomen: Not distended. Normal bowel sounds. Soft and non-tender. No masses or organomegaly. Assessment IMPRESSION (portions of this note have been copied from ... prior note and updated to reflect medical decision making today) Patient is a 63 year old female with history of ulcerative colitis s/p IPAA creation in 1994 (2 stage). She started to experience partial small bowel obstruction in 2020. 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 Underwent pouchoscopy 2021 which revealed pre-pouch, pouch inlet, and pouch inflammation. Was started on Cipro and responded very well. Continued to be on Entvyio q 4 weeks and cycled between 2 weeks on/off Cipro. Most recent scope was in 12/2023 which revealed mild pouchitis, with erosions/ulcerations of only 10% of the pouch, involving both the pouch body and anastomotic lines, improved. She presents today for a follow up. States she is doing okay. Has not had Entvyio since April 2024 due to insurance reasons. States she has not noticed a change in GI symptoms since April, but her psorasis has been flaring up. Also reports 15 pound weight gain since last visit. At this time, will plan for pouchoscopy to reassess disease. Recommend that she start Entvyio as soon as possible (will talk to insurance from our end). Will check labs including TSH. After discussing pros/cons of weight loss medications, patient stated she would like to continue with lifestyle changes only at thistime. PLAN - Continue Entvyio q 4 weeks. Will talk to the nurses re insurance approval - Continue Cipro 2 weeks on/off - Schedule pouchoscopy - Check labs at this time - Educated patient on physical exercise, healthy diet, and adequate water intake - Follow up virtually after scope unless needed sooner Kate Grier PA-C Chu findings confirmed. Discussed with the PA and the patient. Plan as outlined; my changes can be found in bold. Medical Decision Making: Problems: Low: Stable chronic illness Data: Unique test(s) ordered: 2 Risk: Moderate: Drug management Medical Decision Making Level: 3 - Low Tomasa Wakefield APRN.CNP September 17, 2024 12:10 PM documented in this encounterUniversity Hospitals Lake [facility]03-06-2025 NoteHNO ID: [id number] Author: TOMASA WAKEFIELD APRN.SAIRA Service: ? Author Type: Nurse Practitioner Type: Progress Notes Filed: 09/19/2024 07:14 Note Text: .Follow Up Visit SUBJECTIVE 64 year old female with ulcerative colitis here for follow-up. Last seen 01/10/2024. Changes and test results since last visit: Patient presents today for a follow up. States she is doing okay. Has not had Entvyio since April 2024 due to insurance reasons. States she has not noticed a change in GI symptoms since April, but her psorasis has been flaring up. Currently off cipro. Also reports 15 pound weight gain since last visit. She has started the gym but wants to discuss if she can start back on weight loss medication. Was on Moujaro but stopped 03/2024. Current Clinical Symptoms # of bowel movements daily: 6 # of liquid stools daily: 0 Consistency: soft, mushy Bloody bowel movements: no Urgency: no Abdominal pain: no Abdominal distention: no Nausea/vomiting: no Weight loss over last 3 months: no General well-being: very well EIMs: joint (left knee) NSAIDs: takes advil every 3-4 months. Denies smoking Denies ETOH Pouch History Disease Type: Ulcerative Colitis Medications PRIOR to Pouch Surgery: Corticosteroids and 5-ASA Date of Pouch Creation (Mo/Year): 1994 Pouch Indication: Medically refractory disease Type of Pouch: J pouch (IPAA) Number of Pouch Operative Stages: 2 (proctocolectomy + pouch creation + diverting ileostomy, subsequent ileostomy takedown) Pouch Complications: Crohn's-like disease of Pouch Medications Received AFTER Pouch Surgery: Antibiotics Date of Last Pouchoscopy (Mo/Year): 03/2023 Reviewed Items: POUCHOSCOPY (12/27/2023): IMPRESSION: - Anal stricture found on digital rectal exam. - Rectal cuff with healthy appearing mucosa seen. Biopsied. - Mild pouchitis, with erosions/ulcerations of only 10% of the pouch, involving both the pouch body and anastomotic lines, improved. This was mild in severity and graded as Pouchitis Disease Activity Index (Endoscopic) Score 2. Biopsied. - Pouch inlet inflammation with narrowing but no stenosis. Overall stable, compared to prior and likely parts representative of ischemic ileitis - Inflammation was found in the pre-pouch ileum secondary to inflammatory bowel disease vs stasis associated changes. Biopsied. PATHOLOGY: FINAL DIAGNOSIS A. Small bowel, ileum, biopsy: - Mild chronic active enteritis. B. Pouch, inlet, biopsy: - Mild chronic active enteritis. C. Pouch, biopsy: - Mild chronic active enteritis. D. Rectum, cuff, biopsy: - Chronic inactive colitis. POUCHOSCOPY (10/26/2023): IMPRESSION: - Anal stricture found on digital exam. - Inflammation was found at the pouch inlet secondary to pouchitis. Biopsied. - Inflammation was found in the pre-pouch ileum. Biopsied. - Stricture in the afferent limb. PATHOLOGY: FINAL DIAGNOSIS A. Pouch, afferent limb, biopsy: -Active enteritis -Negative for granulomas or dysplasia B. Pouch, inlet, biopsy: -Active enteritis -Negative for granulomas or dysplasia C. Pouch, body, biopsy: -Chronic mildly active enteritis -Negative for granulomas or dysplasia D. Anus, transitional zone, biopsy: -Predominantly intestinal mucosa with mild active enteritis -Negative for granulomas or dysplasia POUCHOSCOPY (03/27/2023): IMPRESSION: - Anal stricture found on digital rectal exam. - Rectal cuff with healthy appearing mucosa seen. Biopsied. - Mild pouch inflammation with ulceration of nearly 10% of the pouch. - Inflammation most severe at the pouch inlet with circumferential inflammation and narrowing of the pouch inlet, but no stricture, characterized by pseudopolyps. Three of the pseudopolyps were removed to open the inlet. - Mild to moderate inflammation of the pre-pouch ileum, with ulceration. Inflammation most severe in the immediate pre-pouch ileum proximal to the pouch inlet. Pre-pouch ileum >10cm from the pouch inlet sparingly inflamed with few ulcers. - Overall appearance is stable, and would continue current vedolizumab, and consider addition of antibiotics as needed. PATHOLOGY: FINAL DIAGNOSIS A. Ileum, pre-pouch, biopsy: - Chronic severely active enteritis with detached ulcer debris (see comment). - Negative for granuloma, pyloric gland metaplasia, and dysplasia. B. Pouch, biopsy: - Chronic moderately active enterocolitis. - Negative for granuloma, pyloric gland metaplasia, and dysplasia. C. Rectum: Biopsy: - Focal mildly active colitis with focal architectural distortion and focal Paneth cell metaplasia. - Negative for granuloma and dysplasia. D. Pouch, inlet, polyp x 3, polypectomy: - Fragments of inflammatory-type polyps with pyloric gland metaplasia (see comment). - Negative for dysplasia. CBC: WBC (k/uL) Date Value 08/29/2024 7.01 Hematocrit (%) Date Value 08/29/2024 40.7 MCV (fL) Date Value 08/29/2024 9 (more content not included)...[facility]02-21-2025 Instructions* Patient Instructions* Ana Enriquez MD - 09/05/2024 11:16 AM EST Continue iron and folic acid supplements Decrease oral B12 to 3 weeks a month RTC 24 weeks Labs 1 week before documented in this encounterUniversity Hospitals Lake [facility] Center02-21-2025 History of Present illness Narrative* Ana Enriquez MD - 09/05/2024 11:00 AM EST Images from the original note were not included. 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 This remains stable today. In the course of her workup she was found to be mildly B12 and mildly iron deficient and she has been on oral supplements since January 2023. Her iron studies and b12 level are normal today. She is alsoon plaquenil and Otezla for psoriasis. Hyponatremia--Resolved PLAN: Continue iron and folic acid supplements Decrease oral B12 to 3 weeks a month RTC 24 weeks Labs 1 week before HPI: CASE HISTORY: Reverse Chronological Order 10/26/2023 - EUA and pouchoscopy A, B. Pouch, afferent limb and inlet, biopsy: -Active enteritis -Negative for granulomas or dysplasia C. Pouch, body, biopsy: -Chronic mildly active enteritis -Negative for granulomas or dysplasia D. Anus, transitional zone, biopsy: -Predominantly intestinal mucosa with mild active enteritis -Negative for granulomas or dysplasia 12/12/2022 - MRI Pancreas: Postoperative changes distal pancreatectomy with mildly increased size of 1.3 cm cystic lesion in the uncinate process, likely sidebranch IPMN. Decreased postoperative fluid collection and fat necrosis. Hepatic steatosis. 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 Crohn's --s/p 1994, total colectomy, on Entyvio and follows GI Updated Visit, September 05, 2024: Here with Danyel Taking Otezla and plaquenil for psoriasis. Insurance is not covering her intivyo Reviewed labs and explained the thrombocythemia cause in her case. Continue taking iron, folate, B12 supplements. Updated Visit, November 08, 2023: Was admitted with bowel obstruction due to scar tissue from pouch - needed dilation. Otherwise is doing well. Labs are improved. Creatinine will recover. Enjoys baseball and reminisces about the old stadium. Updated Visit, August 15, 2023: Laura returns today to follow up. B12 looks great - decrease to 3 weeks a month. Folic acid is low - start taking supplement. Ferratin and Hgb are improving. She reports watery stool, likely caused by magnesium. Updated Visit, May 21, 2023: On Cipro now for pouchitis. She is taking iron daily 5 days a week. B12 orally daily. No BRB. Iron and B12 pending. Hgb stable. Updated Visit, February 16, 2023: Was noted to be B12 deficient Also appears to have iron deficiency anemia with decreased H/H and iron saturation and ferritin. Labs are stable otherwise. Blood sugars are elevated. Initial Visit, February 16, 2022: Laura Stephenson presents today Hematology and Oncology evaluation. She is a 61 year old female who underwent distal pancreas resection as well as splenectomy. She has resultant benign thrombocytosis that can be followed. She is recovering from surgery well. She has a prior history of UC and is following with GI. REVIEW OF SYSTEMS Per HPI and otherwise negative by full review of organ systems. ECOG PERFORMANCE STATUS: 1 PHYSICAL EXAMINATION: Vitals: BP 140/82 Pulse 61 Temp 36.8 C (98.3 F) Resp 16 Wt 91 kg (200 lb 9.9 oz) LMP 02/23/2011 SpO2 98% BMI 33.38 kg/m Body surface area is 2.04 meters squared. Exam limited to gross visualization where appropriate. Gen.: This is an age-appropriate patient in no acute distress. Head: Appears atraumatic with no visible lesions. Eyes: Pupils equally round and reactive to light, extraocular muscles are intact. Neck: Supple. Respiratory: Appears to be respiring comfortably. Neurologic: Nonfocal to gross visualization. Alert and oriented 3. Psychiatric: No evidence of inappropriate anxiety or depression. Skin: Visible areas of skin without rash, lesions, wounds or petechiae. ALLERGIES: ALLERGIES Allergen Reactions Azithromycin Unknown Metronidazole Itching Itching and redness Naproxen Penicillins Sulfa (Sulfonamide * Unknown Vancomycin Rash MEDICATIONS: diphenoxylate-atropine (LOMOTIL) 2.5-0.025 mg per tablet TAKE 1 TABLET BY MOUTH 3 OR 4 TIMES DAILY NEEDED Cholecalciferol, Vitamin D3, (VITAMIN D) 25 mcg (1,000 unit) cap Take 1 capsule by mouth once daily. atenolol (TENORMIN) 25 mg tablet Take 1 tablet by mouth once daily. spironolactone (ALDACTONE) 25 mg tablet Take 1 [...] gauge x 1 1 Syringe as directed. metFORMIN ER (GLUCOPHAGE XR) 500 mg 24 [...] units >400 give 10units and notify provider. Insulin [place], Disposable, (BD ULTRA-FINE MIN PEN NEEDLE) 32 gauge x 5/32 1 Each three times daily. blood sugar diagnostic (ONETOUCH VERIO TEST STRIPS) test strip Use as instructed three times daily lancets (ONETOUCH DELICA PLUS LANCET) 33 gauge 1 Each three times daily. vedolizumab (ENTYVIO) 300 mg injection Infuse 300 mg every 4 weeks. Lactobacillus acidophilus (PROBIOTIC ORAL) Take by mouth. levothyroxine (SYNTHROID) 150 mcg tablet Take 1 tablet by mouth once daily. Omeprazole 40 mg capsule Take 40 mg by mouth once daily. FLUoxetine (PROZAC) 20 mg capsule Take 20 mg by mouth once daily. LABORATORY VALUES: WBC (k/uL) Date Value 08/29/2024 7.01 RBC (m/uL) Date Value 08/29/2024 4.48 Hemoglobin (g/dL) Date Value 08/29/2024 13.3 Hematocrit (%) Date Value 08/29/2024 40.7 MCV (fL) Date Value 08/29/2024 90.8 MCH (pg) Date Value 08/29/2024 29.7 MCHC (g/dL) Date Value 08/29/2024 32.7 RDW-CV (%) Date Value 08/29/2024 13.5 Platelet Count (k/uL) Date Value 08/29/2024 502 (H) MPV (fL) Date Value 08/29/2024 8.6 (L) Glucose (mg/dL) Date Value 08/29/2024 111 (H) BUN (mg/dL) Date Value 08/29/2024 13 Creatinine (mg/dL) Date Value 08/29/2024 0.76 Sodium (mmol/L) Date Value 08/29/2024 140 Potassium (mmol/L) Date Value 08/29/2024 4.7 Chloride (mmol/L) Date Value 08/29/2024 104 CO2 (mmol/L) Date Value 08/29/2024 26 Protein, Total (g/dL) Date Value 08/29/2024 6.7 Albumin (g/dL) Date Value 08/29/2024 4.3 Calcium, Total (mg/dL) Date Value 08/29/2024 10.2 Alkaline Phosphatase (U/L) Date Value 08/29/2024 74 Bilirubin, Total (mg/dL) Date Value 08/29/2024 0.4 AST (U/L) Date Value 08/29/2024 14 ALT (U/L) Date Value 08/29/2024 12 DIAGNOSIS: (D75.838, Z90.81) Thrombocytosis 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 (primary encounter diagnosis) Plan: COMPLETE BLOOD COUNT AND DIFFERENTIAL, COMPREHENSIVE METABOLIC PANEL, IRON AND TIBC, FERRITIN, VITAMIN B12, FOLATE, SERUM (D50.8) Iron deficiency anemia secondary to inadequate dietary iron intake Plan: COMPLETE BLOOD COUNT AND DIFFERENTIAL, COMPREHENSIVE METABOLIC PANEL, IRON AND TIBC, FERRITIN, VITAMIN B12, FOLATE, SERUM (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 (L40.9) Psoriasis PAST MEDICAL HISTORY Diagnosis Date Arthritis Chronic pain of left knee 12/09/2021 Diabetes mellitus (HCC) History of transfusion HTN (hypertension) Hypothyroidism Lichen sclerosus Rheumatoid arthritis (HCC) UC (ulcerative colitis) (HCC) PAST SURGICAL HISTORY Procedure Laterality Date ABDOMINAL SURGERY HX CHG DELIVERY PAST SURGICAL HISTORY OF 1995 2 stage j-pouch PAST SURGICAL HISTORY OF abdominal hernia x2 PICC LINE INSERT/CONSULT 12/23/2021 Social History Tobacco Use Smoking status: Never Smokeless tobacco: Never Vaping Use Vaping status: Never Used Substance Use Topics Alcohol use: Yes Comment: ocassionally Drug use: Never FAMILY HISTORY Problem Relation Age of Onset Anesthesia Problems No Family History I spent a total of 30 minutes on the date of service which included preparing to see the patient, [id number]-[id number] patient care, completing clinical documentation, performing a medically appropriate examination, counseling and educating the patient/family/caregiver, ordering medications, tests, or procedures, independently interpreting results (not separately reported), communicating results to the patient/family/caregiver, and care coordination (not separately reported). Ana Enriquez MD, CPE Hematology and Oncology Services Provided at: [place], [place] CC: Ashu Barton, DO [address] [facility] [id number] documented in this encounterUniversity Hospitals Lake [facility]02-21-2025 NoteHNO ID: [id number] Author: ANA ENRIQUEZ MD Service: ? 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 This remains stable today. In the course of her workup she was found to be mildly B12 and mildly iron deficient and she has been on oral supplements since January 2023. Her iron studies and b12 level are normal today. She is also on plaquenil and Otezla for psoriasis. Hyponatremia--Resolved PLAN: Continue iron and folic acid supplements Decrease oral B12 to 3 weeks a month RTC 24 weeks Labs 1 week before HPI: CASE HISTORY: Reverse Chronological Order 10/26/2023 - EUA and pouchoscopy A, B. Pouch, afferent limb and inlet, biopsy: -Active enteritis -Negative for granulomas or dysplasia C. Pouch, body, biopsy: -Chronic mildly active enteritis -Negative for granulomas or dysplasia D. Anus, transitional zone, biopsy: -Predominantly intestinal mucosa with mild active enteritis -Negative for granulomas or dysplasia 12/12/2022 - MRI Pancreas: Postoperative changes distal pancreatectomy with mildly increased size of 1.3 cm cystic lesion in the uncinate process, likely sidebranch IPMN. Decreased postoperative fluid collection and fat necrosis. Hepatic steatosis. 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 Crohn's --s/p 1994, total colectomy, on Entyvio and follows GI Updated Visit, September 05, 2024: Here with Danyel Taking Otezla and plaquenil for psoriasis. Insurance is not covering her intivyo Reviewed labs and explained the thrombocythemia cause in her case. Continue taking iron, folate, B12 supplements. Updated Visit, November 08, 2023: Was admitted with bowel obstruction due to scar tissue from pouch - needed dilation. Otherwise is doing well. Labs are improved. Creatinine will recover. Enjoys baseball and reminisces about the old stadium. Updated Visit, August 15, 2023: Laura returns today to follow up. B12 looks great - decrease to 3 weeks a month. Folic acid is low - start taking supplement. Ferratin and Hgb are improving. She reports watery stool, likely caused by magnesium. Updated Visit, May 21, 2023: On Cipro now for pouchitis. She is taking iron daily 5 days a week. B12 orally daily. No BRB. Iron and B12 pending. Hgb stable. Updated Visit, February 16, 2023: Was noted to be B12 deficient Also appears to have iron deficiency anemia with decreased H/H and iron saturation and ferritin. Labs are stable otherwise. Blood sugars are elevated. Initial Visit, February 16, 2022: Laura Stephenson presents today Hematology and Oncology evaluation. She is a 61 year old female who underwent distal pancreas resection as well as splenectomy. She has resultant benign thrombocytosis that can be followed. She is recovering from surgery well. She has a prior history of UC and is following with GI. REVIEW OF SYSTEMS Per HPI and otherwise negative by full review of organ systems. ECOG PERFORMANCE STATUS: 1 PHYSICAL EXAMINATION: Vitals: BP 140/82 Pulse 61 Temp 36.8 ?C (98.3 ?F) Resp 16 Wt 91 kg (200 lb 9.9 oz) LMP 02/23/2011 SpO2 98% BMI 33.38 kg/m? Body surface area is 2.04 meters squared. Exam limited to gross visualization where appropriate. Gen.: This is an age-appropriate patient in no acute distress. Head: Appears atraumatic with no visible lesions. Eyes: Pupils equally round and reactive to light, extraocular muscles are intact. Neck: Supple. Respiratory: Appears to be respiring comfortably. Neurologic: Nonfocal to gross visualization. Alert and oriented ?3. Psychiatric: No evidence of inappropriate anxiety or depression. Skin: Visible areas of skin without rash, lesions, wounds or petechiae. ALLERGIES: ALLERGIES Allergen Reactions Azithromycin Unknown Metronidazole Itching Itching and redness Naproxen Penicillins Sulfa (Sulfonamide * Unknown (more content not included)...[facility]12-16-2024 Telephone encounter Note* Telephone Encounter - Mine Delvalle RN - 06/30/2024 3:08 PM EST Requested Prescriptions Pending Prescriptions Disp Refills diphenoxylate-atropine (LOMOTIL) 2.5-0.025 mg per tablet [Pharmacy Med Name: DIPHENOXYLATE-ATROP 2.5-0.025] 120 tablet 3 Sig: TAKE 1 TABLET BY MOUTH 3 OR 4 TIMES DAILY NEEDED KELLI 01/10/24 PLAN Continue Entyvio and alternating two weeks on/off of Cipro Can use metamucil and lomotil to help firm up stools on weeks off Cipro CBC, CMP, and CRP today Follow up with Gail Wakefield in 3 months Follow up with Dr. Mittal in 6 months Remember to schedule MRI of Pancreas in 6-12 months Future appt 07/23/24 Will forward request to provider for review Mine Delvalle RN Full Time Babysitter, IBD [facility]12-16-2024 Miscellaneous Notes* Telephone Encounter - Mine Delvalle RN - 06/30/2024 3:08 PM EST Requested Prescriptions Pending Prescriptions Disp Refills diphenoxylate-atropine (LOMOTIL) 2.5-0.025 mg per tablet [Pharmacy Med Name: DIPHENOXYLATE-ATROP 2.5-0.025] 120 tablet 3 Sig: TAKE 1 TABLET BY MOUTH 3 OR 4 TIMES DAILY NEEDED KELLI 01/10/24 PLAN Continue Entyvio and alternating two weeks on/off of Cipro Can use metamucil and lomotil to help firm up stools on weeks off Cipro CBC, CMP, and CRP today Follow up with Gail Wakefield in 3 months Follow up with Dr. Mittal in 6 months Remember to schedule MRI of Pancreas in 6-12 months Future appt 07/23/24 Will forward request to provider for review Mine Delvalle RN Full Time Babysitter, IBD documented in this encounterUniversity Hospitals [facility]12-09-2024 Telephone encounter Note * Telephone Encounter - Janell Gallo RN - 06/23/2024 12:52 PM EST Pt receiving meds through [employer]. Janell Gallo RN June 23, 2024 12:53 PM [facility]12-09-2024 Miscellaneous Notes* Telephone Encounter - Janell Gallo RN - 06/23/2024 12:52 PM EST Pt receiving meds through [employer] [facility] [facility]. Janell Gallo RN June 23, 2024 12:53 PM * Telephone Encounter - Shine Wilson Ma - 2024 12:28 PM EST [facility] w/ [facility] needs a new prescription for Entyvio single dose valve Shine Wilson Ma documented in this encounterUniversity Hospitals Lake [facility]12-06-2024 Telephone encounter Note * Telephone Encounter - Shine Wilson Ma - 2024 12:28 PM [facility] a new prescription for Entyvio single dose valve Shine Wilson Ma [facility]12-05-2024 Telephone encounter Note* Telephone Encounter - Janell Gallo RN - 06/19/2024 4:49 PM EST Attempted to reach pt. No answer. Left message to call back. Janell Gallo RN June 19, 2024 4:49 PM [facility]12-05-2024 Miscellaneous Notes* Telephone Encounter - Janell Gallo RN - 06/19/2024 4:49 PM EST Attempted to reach pt. No answer. Left message to call back. Janell Gallo RN June 19, 2024 4:49 PM * Telephone Encounter - Michaela Camara - 06/19/2024 4:37 PM EST Patient has questions regarding her Entyvio, She is confused how she is getting this medication. She used to have someone come to her home once a month and do the infusion but now she's not sure so should would like some clarification on what she should be doing Patient number [phone] documented in this encounterUniversity Hospitals Lake [facility] Center12-05-2024 Telephone encounter Note * Telephone Encounter - Michaela Camara - 06/19/2024 4:37 PM EST Patient has questions regarding her Entyvio, She is confused how she is getting this medication. She used to have someone come to her home once a month and do the infusion but now she's not sure so should would like some clarification on what she should be doing Patient number [phone] [facility]11-25-2024 Evaluation note* Diagnosis Onset Date Resolution Status Admit Date BMI 33.0-33.9,adult acuteJune 09, 2024 7:49amDietary counseling and surveillanceacuteJune 09, 2024 7:49amHyperlipidemiaacuteJune 09, 2024 7:49amHypertensionacute June 09, 2024 7:49amType 2 diabetes mellitusacuteJune 09, 2024 7:49amAcquired hypothyroidismacuteJune 10, 2024 4:39pmEssential (primary) hypertensionacuteJune 10, 2024 4:39pmType 2 diabetes mellitus with hyperglycemiaacuteDeceer 2023 9:47am [facility] Work Phone: [phone]) 625-652411-11-2024 Telephone encounter Note* Telephone Encounter - Janell Gallo RN - 05/26/2024 2:06 PM EST Last visit:01/10/2024 PLAN Continue Entyvio and alternating two weeks on/off of Cipro Can use metamucil and lomotil to help firm up stools on weeks off Cipro CBC, CMP, and CRP today Follow up with Gail Wakefield in 3 months Follow up with Dr. Mittal in 6 months Remember to schedule MRI of Pancreas in 6-12 months Next visit scheduled on 06/19/24. Forwarding request to Dr. Mittal. Janell Gallo RN May 26, 2024 2:08 PM [facility]11-11-2024 Miscellaneous Notes* Telephone Encounter - Janell Gallo RN - 05/26/2024 2:06 PM EST Last visit:01/10/2024 PLAN Continue Entyvio and alternating two weeks on/off of Cipro Can use metamucil and lomotil to help firm up stools on weeks off Cipro CBC, CMP, and CRP today Follow up with Gail Wakefield in 3 months Follow up with Dr. Mittal in 6 months Remember to schedule MRI of Pancreas in 6-12 months Next visit scheduled on 06/19/24. Forwarding request to Dr. Mittal. Janell Gallo RN May 26, 2024 2:08 PM * Telephone Encounter - Michaela Camara - 05/26/2024 9:37 AM EST Patient calling to see if she can get refill on Cipro 500mg tablet sent to her [facility] pharmacy on file. Last refill 12/27/2023 Last labs 01/29/2024 Last visit 01/10/2024 documented in this encounterUniversity Hospitals [facility]11-11-2024 Telephone encounter Note * Telephone Encounter - Mihcaela Camara - 05/26/2024 9:37 AM EST Patient calling to see if she can get refill on Cipro 500mg tablet sent to her [facility] pharmacy on file. Last refill 12/27/2023 Last labs 01/29/2024 Last visit 01/10/2024 [facility]07-24-2024 Telephone encounter Note* Telephone Encounter - Mine Delvalle RN - 02/06/2024 9:19 AM EDT Requested Prescriptions Pending Prescriptions Disp Refills diphenoxylate-atropine (LOMOTIL) 2.5-0.025 mg per tablet [Pharmacy Med Name: DIPHENOXYLATE-ATROP 2.5-0.025] 120 tablet Sig: TAKE 1 TABLET BY MOUTH 3 OR 4 TIMES DAILY NEEDED KELLI: 01/10/24 PLAN Continue Entyvio and alternating two weeks on/off of Cipro Can use metamucil and lomotil to help firm up stools on weeks off Cipro CBC, CMP, and CRP today Follow up with Gail Wakefield in 3 months Follow up with Dr. Mittal in 6 months Remember to schedule MRI of Pancreas in 6-12 months Will forward request to provider for review Mine Delvalle RN Full Time Babysitter, IBD [facility]07-24-2024 Miscellaneous Notes* Telephone Encounter - Mine Delvalle RN - 02/06/2024 9:19 AM EDT Requested Prescriptions Pending Prescriptions Disp Refills diphenoxylate-atropine (LOMOTIL) 2.5-0.025 mg per tablet [Pharmacy Med Name: DIPHENOXYLATE-ATROP 2.5-0.025] 120 tablet Sig: TAKE 1 TABLET BY MOUTH 3 OR 4 TIMES DAILY NEEDED KELLI: 01/10/24 PLAN Continue Entyvio and alternating two weeks on/off of Cipro Can use metamucil and lomotil to help firm up stools on weeks off Cipro CBC, CMP, and CRP today Follow up with Gail Wakefield in 3 months Follow up with Dr. Mittal in 6 months Remember to schedule MRI of Pancreas in 6-12 months Will forward request to provider for review Mine Delvalle RN Full Time Babysitter, IBD documented in this encounterUniversity Hospitals Lake [facility] Center07-16-2024 Telephone encounter Note * Telephone Encounter - Zuri Ashford - 01/29/2024 4:42 PM EDT Scheduled labs at 8am on Jul 28, 2024 and return visit on Aug 04 at 3:45. Confirmed dates and times with patient. [facility]07-16-2024 Miscellaneous Notes* Telephone Encounter - Zuri Ashford - 01/29/2024 4:42 PM EDT Scheduled labs at 8am on Jul 28, 2024 and return visit on Aug 04 at 3:45. Confirmed dates and times with patient. * Telephone Encounter - Yola Hollins RN - 01/29/2024 3:57 PM EDT Pt aware and agreeable to poc. She denies questions, needs or concerns at this time. PSS: please call to schedule per Anup's message below. Yola Hollins RN * Telephone Encounter - Ana Enriquez MD - 01/29/2024 3:44 PM EDT All levels adequate and CBC is stable. Repeat in 6 months and RTC 1 week after. * Telephone Encounter - Yola Hollins RN - 01/29/2024 3:36 PM EDT Lab 01/24/24 Anup: please review and advise. When would you like to schedule follow up? Yola Hollins RN documented in this encounterUniversity Hospitals Lake [facility] Center07-16-2024 Telephone encounter Note * Telephone Encounter - Yola Hollins RN - 01/29/2024 3:57 PM EDT Pt aware and agreeable to poc. She denies questions, needs or concerns at this time. PSS: please call to schedule per Anup's message below. Yola Hollins RN [facility]07-16-2024 Telephone encounter Note* Telephone Encounter - Ana Enriquez MD - 01/29/2024 3:44 PM EDT All levels adequate and CBC is stable. Repeat in 6 months and RTC 1 week after. [facility]07-16-2024 Telephone encounter Note* Telephone Encounter - Yola Hollins RN - 01/29/2024 3:36 PM EDT Lab 01/24/24 Anup: please review and advise. When would you like to schedule follow up? Yola Hollins RN [facility]06-27-2024 Instructions* Patient Instructions* Thuan Bond APRN.SEED SERVICE ADVISOR - 01/10/2024 12:39 PM EDT Thank you for visiting [facility]. Below is a list of instructions regarding what we discussed today during your appointment. Continue Entyvio and alternating two weeks on/off of Cipro CBC, CMP, and CRP today Follow up with Gail Wakefield in 3 months Follow up with Dr. Mittal in 6 months Remember to schedule MRI of Pancreas in 6-12 months If you have any questions please feel free to send us a [employer] message or call us at [phone] documented in this encounterUniversity Hospitals Lake [facility] Center06-27-2024 History of Present illness Narrative* Ashu Mittal MD - 01/10/2024 11:00 AM EDT VIRTUAL VISIT FOLLOW UP Laura Stephenson [id number] has requested a video telemedicine follow-up visit. Laura Stephenson verbalized informed consent to proceed with the video telemedicine follow-up visit. Laura Stephenson was informed that the details of this video visit would be recorded as part of their electronic medical record. I have communicated my name and active licensure. The patient's identity and physical location wereverified at the time of this visit. Either the patient or their legal parts representative has been informed of the risks and benefits of -- and alternatives to -- treatment through a remote evaluation andconsents to proceed with the evaluation remotely. Patient presents with: IBD Follow Up I had a virtual visit with Ms. Stephenson today for follow up of ulcerative colitis. UPDATED HISTORY: Overall she is doing well today Has been off the Cipro since this past Sunday has been feeling ok, having 6 BMs a day that are more looser than when she is on cipro. On Entyvio q4 week with next dose on January 25 Takes Lomotil, 1 pill at each meal Recently her doctor took her off Mounjaro due to concerns about Crohns, since then she is having more of an appetite. Weight has been stable currently at 188 Pouch History Template Pouch History Disease Type: Ulcerative Colitis Medications PRIOR to Pouch Surgery: Corticosteroids and 5-ASA Date of Pouch Creation (Mo/Year): 1994 Pouch Indication: Medically refractory disease Type of Pouch: J pouch (IPAA) Number of Pouch Operative Stages: 2 (proctocolectomy + pouch creation + diverting ileostomy, subsequent ileostomy takedown) Pouch Complications: Crohn's-like disease of Pouch Medications Received AFTER Pouch Surgery: Antibiotics<Budesonide, Vedolizumab Date of Last Pouchoscopy (Mo/Year): 03/2023 Current Pouch Symptoms Average number of bowel movements in 24 hour period: 6 Stool Frequency: Usual stool frequency since pouch surgery Rectal Bleeding: None or rare Fecal Urgency: None Abdominal Cramps: None Fever (>100 F) in last 24 hours: No Number of nocturnal bowel movements: 0 Incontinence or Fecal Accidents in last week: None Anti-Diarrheal use: Yes Fecal Seepage:No Use of Pads/Adult Diapers: No PAST MEDICAL HISTORY Diagnosis Date Arthritis Chronic pain of left knee 12/09/2021 Diabetes mellitus (HCC) History of transfusion HTN (hypertension) Hypothyroidism Lichen sclerosus Rheumatoid arthritis (HCC) UC (ulcerative colitis) (HCC) PAST SURGICAL HISTORY Procedure Laterality Date ABDOMINAL SURGERY HX CHG DELIVERY PAST SURGICAL HISTORY OF 1994 2 stage j-pouch PAST SURGICAL HISTORY OF abdominal hernia x2 PICC LINE INSERT/CONSULT 12/23/2021 FAMILY HISTORY Problem Relation Age of Onset Anesthesia Problems No Family History Social History Tobacco Use Smoking status: Never Smokeless tobacco: Never Vaping Use Vaping Use: Never used Substance Use Topics Alcohol use: Yes Comment: ocassionally Drug use: Never Current Outpatient Medications Medication Sig Dispense Refill ciprofloxacin HCl (CIPRO) 500 mg tablet Take 1 tablet by mouth two times a day. instructed by MD, 14 days on; 14 days off 84 tablet 0 Cholecalciferol, Vitamin D3, (VITAMIN D) 25 mcg (1,000 unit) cap Take 1 capsule by mouth once daily. atenolol (TENORMIN) 25 mg tablet Take 1 tablet by mouth once daily. 30 tablet 0 folic acid 1 mg tablet Take 1 tablet by mouth once daily. 90 tablet 3 spironolactone (ALDACTONE) 25 mg tablet Take 1 tablet by mouth every afternoon. magnesium oxide (MAG-OX) 400 mg (241.3 mg magnesium) tablet Take 1 tablet by mouth every afternoon. diphenoxylate-atropine (LOMOTIL) 2.5-0.025 mg per tablet TAKE 1 TABLET BY MOUTH 3-4 TIMES DAILY NEEDED 120 tablet 0 ferrous sulfate 325 mg (65 mg iron) [...] and notify provider. 5 Pen 2 Insulin [place], Disposable, (BD ULTRA-FINE MIN PEN NEEDLE) 32 gauge x 5/32 1 Each three times daily. 100 Each 2 blood sugar diagnostic (ONETOUCH VERIO TEST STRIPS) test strip Use as instructed three times daily 100 Strip 2 lancets (ONETOUCH DELICA PLUS LANCET) 33 gauge 1 Each three times daily. 100 Each 2 vedolizumab (ENTYVIO) 300 mg injection Infuse 300 mg every 4 weeks. 1 Each 5 Lactobacillus acidophilus (PROBIOTIC ORAL) Take by mouth. [...] Penicillins Sulfa (Sulfonamide * Unknown Vancomycin Rash REVIEWED ITEMS CBC: WBC (k/uL) Date Value 11/01/2023 9.12 Hematocrit (%) Date Value 11/01/2023 39.3 MCV (fL) Date Value 11/01/2023 91.4 Platelet Count (k/uL) Date Value 11/01/2023 416 (H) Lymphocytes % (%) Date Value 11/01/2023 29.3 Hepatic Function Panel: Albumin (g/dL) Date Value 11/01/2023 3.7 (L) Bilirubin, Total (mg/dL) Date Value 11/01/2023 0.3 Alkaline Phosphatase (U/L) Date Value 11/01/2023 63 AST (U/L) Date Value 11/01/2023 16 ALT (U/L) Date Value 11/01/2023 13 Protein, Total (g/dL) Date Value 11/01/2023 6.4 Pouchoscopy 12/27/2023 Findings: Patient is status-post total colectomy with an ileal pouch-anal anastomosis. The digital rectal exam findings include anal stricture, digitally dilated. There was a rectal cuff beginning at at 1 cm from the anal verge, characterized by healthy appearing mucosa. The cuff extended 2 cm in length. Biopsies were taken with a cold forceps for histology. Patchy inflammation characterized by altered vascularity and erythema was found in the j-pouch. The inflammation was mild in severity and graded as Pouchitis Disease Activity Index (Endoscopic) Score 2. Biopsies were taken with a cold forceps for histology. Roughly 30-40% of the pouch showed evidence of erythematous mucosal changes and roughly 10% of the pouch had evidence of erosion/ulceration, similar to prior Localized inflammation, severe and characterized by erythema, mucus and confluent ulcerations was found in the pouch inlet. Biopsies were taken with a cold forceps for histology. The inflammation was circumferential, involving the >75% of the pouch inlet, with associated ulceration of 50% of the pouch inlet, with associated narrowing but no clear stenosis, allowing for easy passage of the scope, the area above the pouch inlet (pre-pouch) was mildly dilated. 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 Localized inflammation, mild in severity and characterized by altered vascularity, erosions and serpentine ulcerations was found in the pre-pouch ileum. Biopsies were taken with a cold forceps for histology. Roughly 20-30% of the pre-pouch ileum was inflamed, but only 10% showing evidence of ulceration localized mainly to the area above the pouch inlet suggestive of stasis associated changes. The pre-pouch ileum, greater than 10cm from the pouch inlet was normal. Impression: - Anal stricture found on digital rectal exam. - Rectal cuff with healthy appearing mucosa seen. Biopsied. - Mild pouchitis, with erosions/ulcerations of only 10% of the pouch, involving both the pouch body and anastomotic lines, improved. This was mild in severity and graded as Pouchitis Disease Activity Index (Endoscopic) Score 2. Biopsied. - Pouch inlet inflammation with narrowing but no stenosis. Overall stable, compared to prior and likely parts representative of ischemic ileitis - Inflammation was found in the pre-pouch ileum secondary to inflammatory bowel disease vs stasis associated changes. Biopsied. FINAL DIAGNOSIS A. Small bowel, ileum, biopsy: - Mild chronic active enteritis. B. Pouch, inlet, biopsy: - Mild chronic active enteritis. C. Pouch, biopsy: - Mild chronic active enteritis. D. Rectum, cuff, biopsy: - Chronic inactive colitis. Assessment IMPRESSION 63 y/o woman with a medical history of ulcerative colitis s/p IPAA creation in 1994 (2 stage). In 2020 she experienced pSBO showing a pouch inlet stricture along with post-stenotic dilation on CT, pouchoscopy revealing of pre-pouch, pouch inlet, and pouch inflammation, which has responded clinically to ciprofloxacin. Pt currently being treated with Entyvio q4 weeks and cycling 2 week on/off of Cipro. Presents today feeling overall thought she currently off Cipro and noticing looser stools. WE emphasized this is normal and encouraged her to use metamucil and lomotil to help in the interim. Pouchoscopy 12/2023 with mild pouchitis, with erosions/ulcerations of only 10% of the pouch, involving both the pouch body and anastomotic lines, improved. From IBD standpoint there is no contraindication to be on Mounjaro if patient would like to be restarted on it.Today we will plan to continue Entyvio and obtain labs today. Follow up in 3 months. PLAN Continue Entyvio and alternating two weeks on/off of Cipro Can use metamucil and lomotil to help firm up stools on weeks off Cipro CBC, CMP, and CRP today Follow up with Gail Wakefield in 3 months Follow up with Dr. Mittal in 6 months Remember to schedule MRI of Pancreas in 6-12 months Thuan Bond APRN.SEED SERVICE ADVISOR Attending Note I evaluated the patient and personally participated in the chu components by Thuan Bond. I agreewith the fellow's findings and plan as documented and have discussed the case and management of thepatient's care with the fellow. My additions or changes are documented in bold. Laura Stephenson is a 63 y/o woman with a medical history of ulcerative colitis s/p IPAA creation in 1994 (2 stage). In 2020 she experienced pSBO showing a pouch inlet stricture along with post-stenoticdilation on CT, pouchoscopy revealing of pre-pouch, pouch inlet, and pouch inflammation, which has responded clinically to ciprofloxacin and vedolizumab. Recently admitted 10/24-10/26 with concerns for stricturing of the pouch, underwent EUA with digital dilation of anal stricture and mild inflammation of pouch and pre-pouch ileum & stricture in afferent limb that was traversed, and on repeat evaluation. Reports stability in symptoms on Ciprofloxacin/Vedolizumab which we will continue. Recommended repeat MR for evaluation of side-branched IPMN, as history notable for distal pancreatectomy. Signature: Ashu Mittal MD Date: January 11, 2024 Time: 10:21 AM I spent 30 minutes in the virtual visit, with more than 50% of the total [id number] time of the visit in counseling / coordination of care. I have confirmed and edited as necessary, the PFSH and ROS obtained by others. I will communicate my recommendations and prescriptions to the patient's primary care provider. Unrelated to E/M, telemedicine, or virtual visit service provided within previous 7 days. No E/M service or procedure anticipated within next 24 hours. Ashu Mittal MD January 09, 2024 10:45 AM documented in this encounterUniversity [facility]als [facility]06-13-[facility] Nurse Note* Randee Baldwin RN - 12/27/2023 1:53 PM EDT AMBULATORY PATIENT EDUCATION NOTE TOPIC: GI PROCEDURES: pouchoscopy READINESS TO LEARN INSTRUCTION PROVIDED TO: Patient, readness to learn accessed prior to procedure COGNITIVE ABILITY: Alert and oriented PTED MOTIVATION TO LEARN: Interested FAMILY SUPPORT: High - Very involved in pt care IPATIENT LEARNS BEST BY: Individual Instruction Written Instruction - Hand-outs Verbal Instruction FACTORS AFFECTING LEARNING: None PHYSICAL LIMITATIONS AFFECTING LEARNING: None LEARNING RESPONSE METHOD OF INSTRUCTION: Individual instruction PATIENT / FAMILY RESPONSE: Verbalizes understanding of: WORSENING CONDITION- Signs and symptoms of aworsening condition that warrant a call to the physician FOLLOW-UP PLAN: Complete - No need for follow-up Patient instructed to call with any further issues SUPPLEMENTAL MATERIAL: Procedure Discharge Instructions REFERRAL (RECOMMENDATION): None [facility]06-13-[facility] Nurse Note* Randee Baldwin RN - 12/27/2023 1:53 PM EDT AMBULATORY PATIENT EDUCATION NOTE TOPIC: GI PROCEDURES: pouchoscopy READINESS TO LEARN INSTRUCTION PROVIDED TO: Patient, readness to learn accessed prior to procedure COGNITIVE ABILITY: Alert and oriented PTED MOTIVATION TO LEARN: Interested FAMILY SUPPORT: High - Very involved in pt care IPATIENT LEARNS BEST BY: Individual Instruction Written Instruction - Hand-outs Verbal Instruction FACTORS AFFECTING LEARNING: None PHYSICAL LIMITATIONS AFFECTING LEARNING: None LEARNING RESPONSE METHOD OF INSTRUCTION: Individual instruction PATIENT / FAMILY RESPONSE: Verbalizes understanding of: WORSENING CONDITION- Signs and symptoms of aworsening condition that warrant a call to the physician FOLLOW-UP PLAN: Complete - No need for follow-up Patient instructed to call with any further issues SUPPLEMENTAL MATERIAL: Procedure Discharge Instructions REFERRAL (RECOMMENDATION): None * Cammy Castellon RN - 12/27/2023 12:33 PM EDT PRE OP LEARNING ASSESSMENT PROCEDURE/SURGERY: GI PROCEDURES: Pouchoscopy READINESS TO LEARN COGNITIVE ABILITY: Alert and oriented MOTIVATION TO LEARN: Interested FAMILY SUPPORT: Unable to assess - Family not present PATIENT LEARNS BEST BY: Individual Instruction FACTORS AFFECTING LEARNING: None PHYSICAL LIMITATIONS AFFECTING LEARNING: None Electronically Signed By: Cammy Castellon RN In Department: GASTROENTEROLOGY documented in this encounterUniversity Hospitals [facility]06-13-2024 Nurse Note* Cammy Castellon RN - 12/27/2023 12:33 PM EDT PRE OP LEARNING ASSESSMENT PROCEDURE/SURGERY: GI PROCEDURES: Pouchoscopy READINESS TO LEARN COGNITIVE ABILITY: Alert and oriented MOTIVATION TO LEARN: Interested FAMILY SUPPORT: Unable to assess - Family not present PATIENT LEARNS BEST BY: Individual Instruction FACTORS AFFECTING LEARNING: None PHYSICAL LIMITATIONS AFFECTING LEARNING: None Electronically Signed By: Cammy Castellon RN In Department: GASTROENTEROLOGY [facility]06-06-[facility] Telephone encounter Note* Telephone Encounter - Liz Ramachandran MA - 12/20/2023 2:49 PM EDT Attempted to reach the patient at the contact number that they provided [phone] (home) . Unable to speak with patient so without identifying the patient the following information was left on their voice mail: Date of procedure, location and report time Prep instructions A message was left informing the patient/patient parts representative they must have a responsible adult accompany them to their procedure; and remain in the endoscopy area until they are discharged. Failure to have a responsible adult accompany the patient to their procedure appointment prevents the useof sedation or anesthesia for their procedure; and can result in cancellation of the procedure NPO instructions were reviewed. Clear liquids the day before the procedure, stop all liquids 4 hours before the procedure Instructions to contact their primary care provider regarding their medications and which medications to stop in preparation for their procedure Instructions to completely read and follow the written instructions that they recieved regarding their procedure. Number to call with questions or concerns [phone] Liz Ramachandran MA [facility]06-06-2024 Miscellaneous Notes* Telephone Encounter - Liz Ramachandran MA - 12/20/2023 2:49 PM EDT Attempted to reach the patient at the contact number that they provided [phone] (home) . Unable to speak with patient so without identifying the patient the following information was left on their voice mail: Date of procedure, location and report time Prep instructions A message was left informing the patient/patient parts representative they must have a responsible adult accompany them to their procedure; and remain in the endoscopy area until they are discharged. Failure to have a responsible adult accompany the patient to their procedure appointment prevents the useof sedation or anesthesia for their procedure; and can result in cancellation of the procedure NPO instructions were reviewed. Clear liquids the day before the procedure, stop all liquids 4 hours before the procedure Instructions to contact their primary care provider regarding their medications and which medications to stop in preparation for their procedure Instructions to completely read and follow the written instructions that they recieved regarding their procedure. Number to call with questions or concerns [phone] Liz Ramachandran MA documented in this encounterUniversity Hospitals [facility]05-28-2024 History of Present illness Narrative* Theron Harris MD - 12/11/2023 9:42 AM EDT Images from the original note were not included. 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 Subjective Bowel movements from J pouch, currently diarrhea Dr. Mittal (Gastroenterology) believes J pouch needs to be reversed at some point Dr. Barton (Abd. Wall recon) saw patient but no interested in repair at the time No symptoms of abdominal pain. Recent admission on 10/25 for pouch stricture s/p dilation Incisional hernia with thin skin and small superficial ulcerations Losing weight intentionally Diabetes better controlled Objective VITAL SIGNS: BP 141/73 Pulse 73 Temp 98.3 Resp 20 Wt 188 lb 7.9 oz (85.5kg) SpO2 98% LMP 02/23/2011 PHYSICAL EXAM: GENERAL: Resting comfortably, not in acute distress. CARDIOVASCULAR: Regular rate and rhythm. LUNG: Nonlabored respirations on room air, no accessory muscle use, good respiratory effort. ABDOMEN: Soft, non-tender, non-distended. Large midline incisional hernia with small superficial ulcerations and thin skin. PREVIOUS IMAGIN12/12/2022 MRI PANCREAS IMPRESSION: Postoperative changes distal pancreatectomy with mildly increased size of 1.3 cm cystic lesion in the uncinate process, likely sidebranch IPMN. Decreased postoperative fluid collection and fat necrosis. Hepatic steatosis. Pancreas: Interval postoperative changes distal pancreatectomy. Multiple pancreatic cystic lesions,the largest is a 1.1 x 1.3 cm lesion in the uncinate process (4:21), previously 0.9 x 0.7 cm. Othersmaller pancreatic cystic lesions measuring up to 0.3 cm, stable. Decreased size of 1.5 cm T2 fluidcollection at the surgical cut surface (4:29), previously 3.[address] 01/02/2022. No main duct dilation. No enhancing nodule. TODAY'S IMAGING: MR PANCREAS W/WO IVCON 12/05/23 Postoperative changes of distal pancreatectomy without local recurrence. Unchanged cystic pancreatic lesions, largest measuring 1.2 cm and uncinate process, and likely side branch IPMNs. No suspicious imaging features. Hepatic steatosis. 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 Undergoing yearly surveillance scans for side branch IPMN in remnant pancreas without worrisome features. PLAN: -- MR PANCREAS W/WO IVCON in 1 year for surveillance of pancreatic remnant. -- Re consult Dr. Barton for abdominal wall reconstruction, noted small superficial ulcerations in the midline and thinning of the skin. -- Re consult Dr. Damian for J pouch surgical plan. Plan to be discussed with Staff. Martha Stubbs MD General Surgery Resident [facility] STAFF PHYSICIAN NOTE OF PERSONAL INVOLVEMENT IN CARE I have reviewed the progress note obtained and documented by the resident and I personally participated in the chu components. I have discussed the case and management of the patient's care. The following comments revise or confirm relevant chu components of the note. IMPRESSION: This is a 63 year old status post distal pancreatectomy/splenectomy for mixed type IPMN(LGD) ~ 2 years ago. She does have an incisional hernia that is not super bothersome but her skin is getting think and there is some early skin ulceration. Direct review of MRI pancreas today looks great, no worrisome features. PLAN: Message to Drs. Barton/Izabel/Shawn - discuss fate of her pouch if she were to undergo complex abdominal wall reconstruction MRI pancreas in 1 year for surveillance of pancreatic remnant Medical Decision Making: Problems: Moderate: 1+ chronic illnesses with change Data: Unique test result(s) reviewed: 1 Unique test(s) ordered: 1 Medical Decision Making Level: 3 - Low Theron Harris MD documented in this encounterUniversity Hospitals [facility]05-22-2024 History of Present illness Narrative* Tomasa Wakefield APRN.SEED SERVICE ADVISOR - 12/05/2023 12:30 PM EDT .Follow Up Visit SUBJECTIVE 63 year old female with ulcerative colitis s/p IPAA here for follow-up. Last seen 09/2023. Changes and test results since last visit: -Entyvio Q4 weeks LD Sunday -Cipro BID 2 weeks on/ 2 weeks off -Off budesonide -Lomotil 1 tab 3-4 times a day -Admitted since last visit 10/24-10/26 underwent a EUA and pouchoscopy with bx and dilations on 10/25 Pouch History Template Pouch History Disease Type: Ulcerative Colitis Medications PRIOR to Pouch Surgery: Corticosteroids and 5-ASA Date of Pouch Creation (Mo/Year): 1994 Pouch Indication: Medically refractory disease Type of Pouch: J pouch (IPAA) Number of Pouch Operative Stages: 2 (proctocolectomy + pouch creation + diverting ileostomy, subsequent ileostomy takedown) Pouch Complications: Crohn's-like disease of Pouch Medications Received AFTER Pouch Surgery: Antibiotics<Budesonide, Vedolizumab Date of Last Pouchoscopy (Mo/Year): 03/2023 Current Pouch Symptoms Average number of bowel movements in 24 hour period: 6 Stool Frequency: Usual stool frequency since pouch surgery Rectal Bleeding: None or rare Fecal Urgency: None Abdominal Cramps: None Fever (>100 F) in last 24 hours: No Number of nocturnal bowel movements: 0 Incontinence or Fecal Accidents in last week: None Anti-Diarrheal use: Yes Fecal Seepage:No Use of Pads/Adult Diapers: No Some new skin issues, patches on her legs, will follow up with derm Denies smoking Denies NSAIDs Reviewed Items: CBC: WBC (k/uL) Date Value 11/01/2023 9.12 Hematocrit (%) Date Value 11/01/2023 39.3 MCV (fL) Date Value 11/01/2023 91.4 Platelet Count (k/uL) Date Value 11/01/2023 416 (H) Lymphocytes % (%) Date Value 11/01/2023 29.3 Hepatic Function Panel: Albumin (g/dL) Date Value 11/01/2023 3.7 (L) Bilirubin, Total (mg/dL) Date Value 11/01/2023 0.3 Alkaline Phosphatase (U/L) Date Value 11/01/2023 63 AST (U/L) Date Value 11/01/2023 16 ALT (U/L) Date Value 11/01/2023 13 Protein, Total (g/dL) Date Value 11/01/2023 6.4 Current Outpatient Medications Medication Sig Dispense Refill folic acid 1 mg tablet Take 1 tablet by mouth once daily. 90 tablet 3 spironolactone (ALDACTONE) 25 mg tablet Take 1 tablet by mouth every afternoon. magnesium oxide (MAG-OX) 400 mg (241.3 mg magnesium) tablet Take 1 tablet by mouth every afternoon. diphenoxylate-atropine (LOMOTIL) 2.5-0.025 mg per tablet TAKE 1 TABLET BY MOUTH 3-4 TIMES DAILY NEEDED 120 tablet 0 ferrous sulfate 325 mg (65 mg iron) [...] and notify provider. 5 Pen 2 Insulin [place], Disposable, ([employer] ULTRA-FINE MIN PEN NEEDLE) 32 gauge x 5/32 1 Each three times daily. 100 Each 2 blood sugar diagnostic (ONETOUCH VERIO TEST STRIPS) test strip Use as instructed three times daily 100 Strip 2 lancets (BiBCOMTOUCH DELICA PLUS LANCET) 33 gauge 1 Each three times daily. 100 Each 2 vedolizumab (ENTYVIO) 300 mg injection Infuse 300 mg every 4 weeks. 1 Each 5 Lactobacillus acidophilus (PROBIOTIC ORAL) Take by mouth. Omeprazole 40 mg capsule Take 40 mg by mouth once daily. FLUoxetine (PROZAC) 20 mg capsule Take 20 mg by mouth once daily. Cholecalciferol, Vitamin D3, (VITAMIN D) 25 mcg (1,000 unit) cap Take 1 capsule by mouth once daily. atenolol (TENORMIN) 25 mg tablet Take 1 tablet by mouth once daily. 30 tablet 0 levothyroxine (SYNTHROID) 150 mcg tablet Take 1 tablet by mouth once daily. 30 tablet 0 No current facility-administered medications for this visit. ALLERGIES Allergen Reactions Azithromycin Unknown Metronidazole Itching Itching and redness Naproxen Penicillins Sulfa (Sulfonamide * Unknown Vancomycin Rash PHYSICAL EXAMINATION BP 116/70 Pulse 85 Temp (Src) 98.1 (Temporal) Ht 5' 5 (1.65m) Wt 181 lb 12.8 oz (82.5kg) SpO2 95% LMP 02/23/2011 BMI 30.25 kg/(m^2). General Appearance: alert, oriented x 3, pleasant and in no acute distress Heart:regular rate and rhythm, no murmurs or gallops Lungs: clear & equal BL Abdomen: Not distended. Normal bowel sounds. Soft and non-tender. No masses or organomegaly. Skin: no rashes or lesions Assessment IMPRESSION (portions of this note have been copied from Dr. Mittal's prior note and updated to reflect medical decision making today) 63 y/o woman with a medical history of ulcerative colitis s/p IPAA creation in 1994 (2 stage). In 2020 she experienced pSBO showing a pouch inlet stricture along with post-stenotic dilation on CT, pouchoscopy revealing of pre-pouch, pouch inlet, and pouch inflammation, which has responded clinically to ciprofloxacin. Repeat pouchoscopy showed ongoing active inflammation of the pouch, pre-pouch (immediate), despite course of budesonide. Currently on vedolizumab + ciprofloxacin 500 mg PO BID 2 weeks on/2 weeks off. Recently admitted 10/24-10/26 with concerns for stricturing of the pouch, underwent EUA with digital dilation of anal stricture and mild inflammation of pouch and pre- pouch ileum & stricture in afferent limb that was traversed. PLAN -Continue Entyvio Q4 weeks -Continue Cipro 2 weeks on/2 weeks off -Can consider trial of budesonide taper x3 months -Offered RD which she refuses at this time -Attempted to update HM with patient but she wishes to discuss with PCP -Pouchoscopy & follow up with Dr. Mittal in December as scheduled I spent a total of 55 minutes on the date of the service which included preparing to see the patient, [id number] patient care, completing clinical documentation, obtaining and/or reviewing separately obtained history, performing a medically appropriate examination, counseling and educating the pat ient/family/caregiver, and ordering medications, tests, or procedures. Tomasa Wakefield APRN.CNP December 05, 2023 8:32 AM documented in this encounterUniversity Hospitals Lake [facility]05-22-2024 Instructions* Patient Instructions* Tomasa Wakefield APRN.CNP - 12/05/2023 12:24 PM EDT Labs to be completed prior to January 13 Please discuss bone density scan with primary care provider Please follow up with dermatology Continue 2 weeks on/2 weeks off of Cipro 250 mg BID Pouchoscopy with Dr. Mittal in December and follow up with him following as scheduled documented in this encounterUniversity Hospitals Lake [facility]05-22-2024 History of Present illness Narrative* Livier Calero RN - 12/05/2023 9:10 AM EDT Radiology Service Progress Note DATE OF SERVICE: December 05, 2023 TIME: 9:20 AM PATIENT WEIGHT: 184 LBS PATIENT IDENTITY VERIFICATION COMPLETED USING TWO (2) STANDARD IDENTIFIERS: Name and Date of confirmed by patient verbally. FALL SCREENING: Has the patient had 2 falls in the last year or 1 fall with injury or currently using an Ambulatory Assistive Device (Walker, Cane, Wheelchair, Crutches, etc.)? No PATIENT GENDER DATA: Female. status: : No status: NO. ALLERGIES: Reviewed and unchanged CONTRAST ALLERGY: No EXAM: MRI - CONTRAST TYPE: GROUP II IV SITE: Ambulatory: A peripheral IV was started in the Right antecubital site with a Angio cath: 22 gauge. IV SITE APPEARANCE: Clean,Dry and Intact SIGNATURE: Livier Calero RN PATIENT NAME: Laura Stephenson DATE: December 05, 2023 TIME: 9:20 AM * Angelica Fitzpatrick RT(R) - 12/05/2023 9:10 AM EDT Radiology Service Progress Note PATIENT NAME: Laura Stephenson DATE OF SERVICE: December 05, 2023 TIME: 10:05 AM PATIENT IDENTITY VERIFICATION COMPLETED USING TWO (2) IDENTIFIERS: Name and Date of confirmedby patient verbally and Name and Date of confirmed by identification band. FALL SCREENING: Has the patient had 2 falls in the last year or 1 fall with injury or currently using an Ambulatory Assistive Device (Walker, Cane, Wheelchair, Crutches, etc.)? Yes, Patient High Riskfor Falls What interventions were put in place to prevent falls during this visit? [place] Risk Wristband Applied, Instructed Patient to Call for Help if Needed, and Offered Assistance with Transfers/Clothing PATIENT GENDER DATA: Female. status: : No status: NO. PATIENT RELEVANT IMPLANT DATA REVIEWED: Yes PATIENT PRESENTS WITH AN IMPLANTABLE OR ATTACHED TUBER OPERATOR: No RADIOLOGY DEPARTMENT: MR; Exam(s) Completed: Body: Pancreas/Biliary PERIPHERAL IV DATA: Site assessment: Clean,Dry and Intact, Site disposition Discontinued SIGNED BY: RT Bo(R) December 05, 2023 10:05 AM documented in this encounterUniversity Hospitals Lake [facility] Center04-29-2024 History of Present illness Narrative* Anthony Damian MD - 11/12/2023 9:15 AM EDT COLORECTAL SURGERY Post-Op Visit November 08, 2023 Laura Stephenson returns for a post-operative visit after undergoing Flexible pouchoscopy with biopsies and rectal examination under anesthesia with anal dilation, on 10/26/2023. Her post-operative period was uncomplicated. She is tolerating diet with an improving appetite, stable weight, and energy level is improving . She has no specific complaints. No nausea or abdominal pain since discharge Current pain medications: none Current bowel related medications: lomotil Bowel movement frequency: 6 a day Current Outpatient Medications Medication Sig Dispense Refill atenolol (TENORMIN) 25 mg tablet Take 1 tablet by mouth once daily. 30 tablet 0 folic acid 1 mg tablet Take 1 tablet by mouth once daily. 90 tablet 3 MOUNJARO 5 mg/0.5 mL pen injector INJECT 5MG UNDER THE SKIN ONCE WEEKLY FOR 84 DAYS DIRECTED spironolactone (ALDACTONE) 25 mg tablet Take 1 tablet by mouth every afternoon. magnesium oxide (MAG-OX) 400 mg (241.3 mg magnesium) tablet Take 1 tablet by mouth every afternoon. ergocalciferol 50,000 unit capsule (VITAMIN D2, DRISDOL) Take by mouth. diphenoxylate-atropine (LOMOTIL) 2.5-0.025 mg per tablet TAKE 1 TABLET BY MOUTH 3-4 TIMES DAILY NEEDED 120 tablet 0 ferrous sulfate 325 mg (65 mg iron) tablet Take 325 mg by mouth five times a week. mecobalamin, vitamin B12, 1,000 mcg chew Take by mouth once daily. metFORMIN ER (GLUCOPHAGE XR) 500 mg 24 [...] 10units and notify provider. 5 Pen 2 vedolizumab (ENTYVIO) 300 mg injection Infuse 300 mg every 4 weeks. 1 Each 5 Lactobacillus acidophilus (PROBIOTIC ORAL) Take by mouth. levothyroxine (SYNTHROID) 150 mcg tablet Take 1 tablet by mouth once daily. 30 tablet 0 Omeprazole 40 mg capsule Take 40 mg by mouth once daily. FLUoxetine (PROZAC) 20 mg capsule Take 20 mg by mouth once daily. Syringe with Needle, Disp, 3 mL 25 gauge x 1 1 Syringe as directed. 16 Each 0 insulin aspart U-100 (NOVOLOG) 100 unit/mL (3 mL) Inject subcutaneously. 2 UNITS IF GLUCOSE IS HIGH(Patient not taking: Reported on 11/12/2023) Insulin [place], Disposable, (BD ULTRA-FINE MIN PEN NEEDLE) 32 gauge x 5/32 1 Each three times daily. 100 Each 2 blood sugar diagnostic (ONETOUCH VERIO TEST STRIPS) test strip Use as instructed three times daily 100 Strip 2 lancets (ONETOUCH DELICA PLUS LANCET) 33 gauge 1 Each three times daily. 100 Each 2 No current facility-administered medications for this visit. ALLERGIES Allergen Reactions Azithromycin Unknown Metronidazole Itching Itching and redness Naproxen Penicillins Sulfa (Sulfonamide * Unknown Vancomycin Rash Ht 165.1 cm (5' 5 ) Wt 84.4 kg (186 lb) LMP 02/23/2011 BMI 30.95 kg/m Abdominal examination: soft, non-distended, and non-tender without masses. Stable hernia present Anorectal: not done today Teacher Adult Education present: Yes Surgical path 10/26/2023 FINAL DIAGNOSIS A. Pouch, afferent limb, biopsy: -Active enteritis -Negative for granulomas or dysplasia B. Pouch, inlet, biopsy: -Active enteritis -Negative for granulomas or dysplasia C. Pouch, body, biopsy: -Chronic mildly active enteritis -Negative for granulomas or dysplasia D. Anus, transitional zone, biopsy: -Predominantly intestinal mucosa with mild active enteritis -Negative for granulomas or dysplasia Assessment Assessment: Laura Stephenson is a 63 year old female who is following up after hospitalization for partial small bowel obstruction. Has had multiple surgeries in the past, likely abdominal adhesions, but also previously has had partial obstructions due to an afferent limb stricture of her J pouch but my pouchoscopy in the hospital did not reveal this to be obstructing at this time Plan Plan: - Continue entyvio - Follow up as planned with Dr Mittal - Follow up with me as needed. Anthony Damian MD documented in this encounterUniversity Hospitals [facility]04-25-2024 Instructions* Patient Instructions* Ana Enriquez MD - 11/08/2023 8:56 AM EDT Continue folic acid supplement Decrease oral B12 to 3 weeks a month RTC 12 weeks Labs 1 week before documented in this encounterUniversity Hospitals [facility]04-25-2024 History of Present illness Narrative* Ana Enriquez MD - 11/08/2023 8:30 AM EDT Images from the original note were not included. NAME: Laura Stephenson CLINIC NO.: [id number] DATE OF SERVICE: November 08, 2023 (Marguerite) Some elements in this clinic note that are critical to medical decision making have been carefully reviewed and included from a prior clinic note dated: August 15, 2023 (Marguerite) Referring Provider: Ashu Mittal Additional Clinicians involved in Laura Stephenson's care: DIAGNOSIS: Thrombocytosis ASSESSMENT: 63 year old woman with 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 This remains stable today However she was found to be B12 deficient and iron deficient and she has been on oral supplements since January 2023. Her iron studies and b12 level are pending today. If they remain low, we will offer IV iron and Im B12 injections. Hyponatremia--She will be following up with her PCP regarding this We will plan to see her in 3 months with repeat labs a week before. due to b12 deficiency as well as iron deficiency. PLAN: Continue folic acid supplement Decrease oral B12 to 3 weeks a month RTC 12 weeks Labs 1 week before HPI: CASE HISTORY: Reverse Chronological Order 10/26/2023 - EUA and pouchoscopy A, B. Pouch, afferent limb and inlet, biopsy: -Active enteritis -Negative for granulomas or dysplasia C. Pouch, body, biopsy: -Chronic mildly active enteritis -Negative for granulomas or dysplasia D. Anus, transitional zone, biopsy: -Predominantly intestinal mucosa with mild active enteritis -Negative for granulomas or dysplasia 12/12/2022 - MRI Pancreas: Postoperative changes distal pancreatectomy with mildly increased size of 1.3 cm cystic lesion in the uncinate process, likely sidebranch IPMN. Decreased postoperative fluid collection and fat necrosis. Hepatic steatosis. 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 Crohn's --s/p 1994, total colectomy, on Entyvio and follows GI Updated Visit, November 08, 2023: Was admitted with bowel obstruction due to scar tissue from pouch - needed dilation. Otherwise is doing well. Labs are improved. Creatinine will recover. Enjoys baseball and reminisces about the old stadium. Updated Visit, August 15, 2023: Laura returns today to follow up. B12 looks great - decrease to 3 weeks a month. Folic acid is low - start taking supplement. Ferratin and Hgb are improving. She reports watery stool, likely caused by magnesium. Updated Visit, May 21, 2023: On Cipro now for pouchitis. She is taking iron daily 5 days a week. B12 orally daily. No BRB. Iron and B12 pending. Hgb stable. Updated Visit, February 16, 2023: Was noted to be B12 deficient Also appears to have iron deficiency anemia with decreased H/H and iron saturation and ferritin. Labs are stable otherwise. Blood sugars are elevated. Initial Visit, February 16, 2022: Laura Stephenson presents today Hematology and Oncology evaluation. She is a 61 year old female who underwent distal pancreas resection as well as splenectomy. She has resultant benign thrombocytosis that can be followed. She is recovering from surgery well. She has a prior history of UC and is following with GI. REVIEW OF SYSTEMS Per HPI and otherwise negative by full review of organ systems. ECOG PERFORMANCE STATUS: 1 PHYSICAL EXAMINATION: Vitals: BP 136/55 Pulse 78 Temp 36.4 C (97.6 F) (Temporal) Resp 16 Ht 165.1 cm (5' 5 ) Wt 85.7 kg(188 lb 15 oz) LMP 02/23/2011 SpO2 98% BMI 31.44 kg/m Body surface area is 1.98 meters squared. Exam limited to gross visualization where appropriate. Gen.: This is an age-appropriate patient in no acute distress. Head: Appears atraumatic with no visible lesions. Eyes: Pupils equally round and reactive to light, extraocular muscles are intact. Neck: Supple. Respiratory: Appears to be respiring comfortably. Neurologic: Nonfocal to gross visualization. Alert and oriented 3. Psychiatric: No evidence of inappropriate anxiety or depression. Skin: Visible areas of skin without rash, lesions, wounds or petechiae. ALLERGIES: ALLERGIES Allergen Reactions Azithromycin Unknown Metronidazole Itching Itching and redness Naproxen Penicillins Sulfa (Sulfonamide * Unknown Vancomycin Rash MEDICATIONS: ciprofloxacin HCl (CIPRO) 500 mg tablet Take 1 tablet by mouth two times a day for 14 days. atenolol (TENORMIN) 25 mg tablet Take 1 tablet by mouth once daily. ciprofloxacin HCl (CIPRO) 500 mg tablet Take 1 tablet by mouth two times a day. Would alternate twoweeks on; two weeks off folic acid 1 mg tablet Take 1 tablet by mouth once daily. MOUNJARO 5 mg/0.5 mL pen injector INJECT 5MG UNDER THE SKIN ONCE WEEKLY FOR 84 DAYS DIRECTED spironolactone (ALDACTONE) 25 mg tablet Take 1 tablet by mouth every afternoon. magnesium oxide (MAG-OX) 400 mg (241.3 mg magnesium) tablet Take 1 tablet by mouth every afternoon. ergocalciferol 50,000 unit capsule (VITAMIN D2, DRISDOL) Take by mouth. diphenoxylate-atropine (LOMOTIL) 2.5-0.025 mg per tablet TAKE 1 TABLET BY MOUTH 3-4 TIMES DAILY NEEDED ferrous sulfate 325 mg (65 mg iron) tablet Take 325 mg by mouth five times a week. mecobalamin, vitamin B12, 1,000 mcg chew Take by mouth once daily. Syringe with Needle, Disp, 3 mL 25 gauge x 1 1 Syringe as directed. metFORMIN ER (GLUCOPHAGE XR) 500 mg 24 hr tablet TAKE 1 TABLET BY MOUTH EVERY DAY IN THE EVENING WITH MEAL insulin aspart U-100 (NOVOLOG) 100 unit/mL (3 mL) Inject subcutaneously. 2 UNITS IF GLUCOSE IS HIGH insulin lispro (HUMALOG KWIKPEN INSULIN) 100 unit/mL Inject 0-10 units three times daily following the sliding scale: If Blood Glucose (mg/dL) is <110 Give 0 units 111-150 Give 0 units 151-200 Give 2 unit 201-250 Give 4 units 251-300 Give 6 units 301-350 Give 8 units 351-400 Give 10 units >400 give 10units and notify provider. Insulin [place], Disposable, (BD ULTRA-FINE MIN PEN NEEDLE) 32 gauge x 5/32 1 Each three times daily. blood sugar diagnostic (BiBCOMTOUCH VERIO TEST STRIPS) test strip Use as instructed three times daily lancets (ONETOUCH DELICA PLUS LANCET) 33 gauge 1 Each three times daily. vedolizumab (ENTYVIO) 300 mg injection Infuse 300 mg every 4 weeks. Lactobacillus acidophilus (PROBIOTIC ORAL) Take by mouth. Omeprazole 40 mg capsule Take 40 mg by mouth once daily. FLUoxetine (PROZAC) 20 mg capsule Take 20 mg by mouth once daily. levothyroxine (SYNTHROID) 150 mcg tablet Take 1 tablet by mouth once daily. LABORATORY VALUES: WBC (k/uL) Date Value 11/01/2023 9.12 RBC (m/uL) Date Value 11/01/2023 4.30 Hemoglobin (g/dL) Date Value 11/01/2023 12.8 Hematocrit (%) Date Value 11/01/2023 39.3 MCV (fL) Date Value 11/01/2023 91.4 MCH (pg) Date Value 11/01/2023 29.8 MCHC (g/dL) Date Value 11/01/2023 32.6 RDW-CV (%) Date Value 11/01/2023 15.3 (H) Platelet Count (k/uL) Date Value 11/01/2023 416 (H) MPV (fL) Date Value 11/01/2023 9.1 Glucose (mg/dL) Date Value 11/01/2023 123 (H) BUN (mg/dL) Date Value 11/01/2023 12 Creatinine (mg/dL) Date Value 11/01/2023 0.97 (H) Sodium (mmol/L) Date Value 11/01/2023 138 Potassium (mmol/L) Date Value 11/01/2023 4.1 Chloride (mmol/L) Date Value 11/01/2023 102 CO2 (mmol/L) Date Value 11/01/2023 24 Protein, Total (g/dL) Date Value 11/01/2023 6.4 Albumin (g/dL) Date Value 11/01/2023 3.7 (L) Calcium, Total (mg/dL) Date Value 11/01/2023 9.7 Alkaline Phosphatase (U/L) Date Value 11/01/2023 63 Bilirubin, Total (mg/dL) Date Value 11/01/2023 0.3 AST (U/L) Date Value 11/01/2023 16 ALT (U/L) Date Value 11/01/2023 13 DIAGNOSIS: (D50.8) Iron deficiency anemia secondary to inadequate dietary iron intake (primary encounter diagnosis) Plan: COMPLETE BLOOD COUNT AND DIFFERENTIAL, COMPREHENSIVE METABOLIC PANEL, IRON AND TIBC, FERRITIN, VITAMIN B12, FOLATE, SERUM (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 Plan: COMPLETE BLOOD COUNT AND DIFFERENTIAL, COMPREHENSIVE METABOLIC PANEL, IRON AND TIBC, FERRITIN, VITAMIN B12, FOLATE, SERUM (D75.838, Z90.81) Thrombocytosis 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 Plan: COMPLETE BLOOD COUNT AND DIFFERENTIAL, COMPREHENSIVE METABOLIC PANEL, IRON AND TIBC, FERRITIN, VITAMIN B12, FOLATE, SERUM PAST MEDICAL HISTORY Diagnosis Date Arthritis Chronic pain of left knee 12/09/2021 Diabetes mellitus (HCC) History of transfusion HTN (hypertension) Hypothyroidism Lichen sclerosus Rheumatoid arthritis (HCC) UC (ulcerative colitis) (HCC) PAST SURGICAL HISTORY Procedure Laterality Date ABDOMINAL SURGERY HX CHG DELIVERY PAST SURGICAL HISTORY OF 1995 2 stage j-pouch PAST SURGICAL HISTORY OF abdominal hernia x2 PICC LINE INSERT/CONSULT 12/23/2021 Social History Tobacco Use Smoking status: Never Smokeless tobacco: Never Vaping Use Vaping Use: Never used Substance Use Topics Alcohol use: Yes Comment: ocassionally Drug use: Never FAMILY HISTORY Problem Relation Age of Onset Anesthesia Problems No Family History I spent a total of 20 minutes on the date of service which included preparing to see the patient, [id number] patient care, completing clinical documentation, performing a medically appropriate examination, ordering medications, tests, or procedures, independently interpreting results (not separately reported), and communicating results to the patient/family/caregiver. Ana Enriquez MD, CPE Hematology and Oncology Services Provided at: [place], [place] CC: Ashu Mittal [address] [id number] [address], [address] [facility] [id number] documented in this encounterUniversity Hospitals Lake [facility]04-04-2024 Miscellaneous Notes* Telephone Encounter - Janell Gallo RN - 10/18/2023 1:19 PM EDT Images from the original note were not included. Labs Received: 3 days ago Ashu Mittal MD sent to Janell Gallo RN Ebony Can you let her knwo that her labs continue to be stable, but her Cr continues to rise and she should follow up with her PCP to see if additional testing is needed to assess if there is an injury to her kidneys that requires assessment or management Her other labs are stable sAhu Contacted pt by phone and notified of results and need to follow up with PCP. Understanding verbalized. Janell Gallo RN October 18, 2023 1:21 PM documented in this encounterUniversity Hospitals Lake [facility] Center03-15-2024 History of Present illness Narrative* Ashu Mittal MD - 09/28/2023 3:33 PM EDT VIRTUAL VISIT FOLLOW UP Laura Stephenson [id number] has requested a video telemedicine follow-up visit. Laura Stephenson verbalized informed consent to proceed with the video telemedicine follow-up visit. Laura Stephenson was informed that the details of this video visit would be recorded as part of their electronic medical record. I have communicated my name and active licensure. The patient's identity and physical location wereverified at the time of this visit. Either the patient or their legal parts representative has been informed of the risks and benefits of -- and alternatives to -- treatment through a remote evaluation andconsents to proceed with the evaluation remotely. No chief complaint on file. I had a virtual visit with Ms. Stephenson today for follow up of ulcerative colitis s/p IPAA Ms. Stephenson is a 62 y/o woman with a medical history of ulcerative colitis s/p IPAA creation in 1994 (2 stage). In 2020 she experienced pSBO showing a pouch inlet stricture along with post-stenotic dilation on CT, pouchoscopy revealing of pre-pouch, pouch inlet, and pouch inflammation, which has responded clinically to ciprofloxacin. Repeat pouchoscopy showed ongoing active inflammation of the pouch, pre-pouch (immediate), despite course of budesonide. Considering this, would favor use of ongoing Ciprofloxacin with a plan for a re- evaluation in the next 8-12 months. Along with vedolizumab therapy UPDATED HISTORY: Pouch History Template Pouch History Disease Type: Ulcerative Colitis Medications PRIOR to Pouch Surgery: Corticosteroids and 5-ASA Date of Pouch Creation (Mo/Year): 1994 Pouch Indication: Medically refractory disease Type of Pouch: J pouch (IPAA) Number of Pouch Operative Stages: 2 (proctocolectomy + pouch creation + diverting ileostomy, subsequent ileostomy takedown) Pouch Complications: Crohn's-like disease of Pouch Medications Received AFTER Pouch Surgery: Antibiotics< Budesonide, Vedolizumab Date of Last Pouchoscopy (Mo/Year): 03/2023 Impression: - Anal stricture found on digital rectal exam. - Rectal cuff with healthy appearing mucosa seen. Biopsied. - Mild pouch inflammation with ulceration of nearly 10% of the pouch. - Inflammation most severe at the pouch inlet with circumferential inflammation and narrowing of the pouch inlet, but no stricture, characterized by pseudopolyps. Three of the pseudopolyps were removed to open the inlet. - Mild to moderate inflammation of the pre-pouch ileum, with ulceration. Inflammation most severe in the immediate pre-pouch ileum proximal to the pouch inlet. Pre-pouch ileum >10cm from the pouch inlet sparingly inflamed with few ulcers. - Overall appearance is stable, and would continue current vedolizumab, and consider addition of antibiotics as needed. Current Pouch Symptoms Average number of bowel movements in 24 hour period: 6-7 Stool Frequency: Usual stool frequency since pouch surgery Rectal Bleeding: None or rare Fecal Urgency: None Abdominal Cramps: None Fever (>100 F) in last 24 hours: No Number of nocturnal bowel movements: 0 Incontinence or Fecal Accidents in last week: None Anti-Diarrheal use: Yes, 4 pills Fecal Seepage:No Use of Pads/Adult Diapers: Yes Decreased cipro to 250mg PO BID, stopped taking it. Reports that she is still on the magnesium. Potassium, PAST MEDICAL HISTORY Diagnosis Date Arthritis Chronic pain of left knee 12/09/2021 Diabetes mellitus (HCC) History of transfusion HTN (hypertension) Hypothyroidism Lichen sclerosus Rheumatoid arthritis (HCC) UC (ulcerative colitis) (HCC) PAST SURGICAL HISTORY Procedure Laterality Date ABDOMINAL SURGERY HX CHG DELIVERY PAST SURGICAL HISTORY OF 1994 2 stage j-pouch PAST SURGICAL HISTORY OF abdominal hernia x2 PICC LINE INSERT/CONSULT 12/23/2021 FAMILY HISTORY Problem Relation Age of Onset Anesthesia Problems No Family History Social History Tobacco Use Smoking status: Never Smokeless tobacco: Never Vaping Use Vaping Use: Never used Substance Use Topics Alcohol use: Yes Comment: ocassionally Drug use: Never Current Outpatient Medications Medication Sig Dispense Refill folic acid 1 mg tablet Take 1 tablet by mouth once daily. 90 tablet 3 MOUNJARO 5 mg/0.5 mL pen injector INJECT 5MG UNDER THE SKIN ONCE WEEKLY FOR 84 DAYS DIRECTED spironolactone (ALDACTONE) 25 mg tablet Take 1 tablet by mouth every afternoon. magnesium oxide (MAG-OX) 400 mg (241.3 mg magnesium) tablet Take 1 tablet by mouth every afternoon. hydrOXYchloroQUINE (PLAQUENIL) 200 mg tablet Take 1 tablet by mouth every 12 hours. ergocalciferol 50,000 unit capsule (VITAMIN D2, DRISDOL) Take by mouth. ciprofloxacin HCl (CIPRO) 250 mg tablet Take 1 tablet by mouth two times a day. 60 tablet 2 diphenoxylate-atropine (LOMOTIL) 2.5-0.025 mg per tablet TAKE 1 TABLET BY MOUTH 3-4 TIMES DAILY NEEDED 120 tablet 0 ferrous sulfate 325 mg (65 mg iron) [...] DAY IN THE EVENING WITH MEAL insulin aspart U-100 (NOVOLOG) 100 unit/mL (3 mL) Inject subcutaneously. 2 UNITS IF GLUCOSE IS HIGH insulin lispro (HUMALOG KWIKPEN INSULIN) 100 unit/mL Inject 0-10 units three times daily following the sliding scale: If Blood Glucose (mg/dL) is <110 Give 0 units 111-150 Give 0 units 151-200 Give 2 unit 201-250 Give 4 units 251-300 Give 6 units 301-350 Give 8 units 351-400 Give 10 units >400 give 10units and notify provider. 5 Pen 2 Insulin [place], Disposable, (BD ULTRA-FINE MIN PEN NEEDLE) 32 gauge x 5/32 1 Each three times daily. 100 Each 2 blood sugar diagnostic (ONETOUCH VERIO TEST STRIPS) test strip Use as instructed three times daily 100 Strip 2 lancets (BiBCOMTOUCH DELICA PLUS LANCET) 33 gauge 1 Each three times daily. 100 Each 2 vedolizumab (ENTYVIO) 300 mg injection Infuse 300 mg every 4 weeks. 1 Each 5 Lactobacillus acidophilus (PROBIOTIC ORAL) Take by mouth. levothyroxine (SYNTHROID) 150 mcg tablet Take 1 tablet by mouth once daily. 30 tablet 0 Omeprazole 40 mg capsule Take 40 mg by mouth once daily. FLUoxetine (PROZAC) 20 mg capsule Take 20 mg by mouth once daily. atenolol 25 mg tablet Take 25 mg by mouth once daily. (Patient not taking: Reported on 08/15/2023) No current facility-administered medications for this visit. ALLERGIES Allergen Reactions Azithromycin Unknown Metronidazole Itching Itching and redness Naproxen Penicillins Sulfa (Sulfonamide * Unknown Vancomycin Rash Zpack [Other] PHYSICAL FINDINGS OF NOTE: General: alert and appropriate, in no distress and well-hydrated, well nourished , Psych: Appropriate mood and interaction Skin: no rash noted, Head: normocephalic, no abnormality or lesion noted, Eyes: visual acuity is grossly normal, no injection,, and EOMI, Ears: external ears normal without erythema or edema, Nose: external nose normal without rhinorrhea, Oropharynx: moist mucus membranes, no tonsillar hypertrophy/exudate, uvula midline and pharynx non-erythematous, lips, teeth and gums are without obvious lesion, Neck: full ROM, no cervical LNs noted, Respiratory: breathing non-labored, and no grunting/flaring/retractions, Chest: equal chest rise with normal respiratory effort, Abdomen: flat appearing. Visible protrusions or hernias: No Incisions/scars: None Areas of pain/tenderness: Denies Neuro: Patient seen sitting with normal appearing strength and coordination REVIEWED ITEMS CBC: WBC (k/uL) Date Value 08/06/2023 7.86 Hematocrit (%) Date Value 08/06/2023 39.3 MCV (fL) Date Value 08/06/2023 89.1 Platelet Count (k/uL) Date Value 08/06/2023 415 (H) Lymphocytes % (%) Date Value 08/06/2023 23.4 Hepatic Function Panel: Albumin (g/dL) Date Value 08/06/2023 3.9 Bilirubin, Total (mg/dL) Date Value 08/06/2023 0.3 Alkaline Phosphatase (U/L) Date Value 08/06/2023 72 AST (U/L) Date Value 08/06/2023 15 ALT (U/L) Date Value 08/06/2023 14 Protein, Total (g/dL) Date Value 08/06/2023 6.7 Assessment IMPRESSION Ms. Stephenson is a 62 y/o woman with a medical history of ulcerative colitis s/p IPAA creation in 1994 (2 stage). In 2020 she experienced pSBO showing a pouch inlet stricture along with post-stenotic dilation on CT, pouchoscopy revealing of pre-pouch, pouch inlet, and pouch inflammation, which has responded clinically to ciprofloxacin. Repeat pouchoscopy showed ongoing active inflammation of the pouch, pre-pouch (immediate), despite course of budesonide. Currently on vedolizumab + ciprofloxacin 250mg PO BID, tapering dose, which she self-discontinued due to lack of efficacy Reports that she feels best, when she takes Ciprofloxacin 500mg PO BID, and the lower dose is not helfpul. Symptoms may be compounded with use of suppelments (Magneisum) as well as Mounjaro. Considering this, we recommended she stratrgize Intermittent antibiotics, to limit exposure and consider Ciprofloxacin 500mg PO BID, two weeks on/two weeks off. She will continue vedolizumab ever 4 weeks and we will plan for a pouchoscopy Physician Global Assessment of Disease Activity: mild disease PLAN -Ciprofloxacin 500mg PO BID, two weeks on/two weeks off, if symptoms do no respond on two weeks offcan alterate to three weeks on/1 weeks off -Vedolizumab 400mg IV q4 -Will plan to obtain blood and stool testing -Will plan to follow up with a pouchoscopy in q3-4 I spent 40 minutes in the virtual visit, with more than 50% of the total [id number] time of the visit in counseling / coordination of care. I have confirmed and edited as necessary, the PFSH and ROS obtained by others. I will communicate my recommendations and prescriptions to the patient's primary care provider. Unrelated to E/M, telemedicine, or virtual visit service provided within previous 7 days. No E/M service or procedure anticipated within next 24 hours. Ashu Mittal MD September 28, 2023 3:33 PM documented in this encounterUniversity Hospitals Lake [facility] Center01-31-2024 Instructions* Patient Instructions* Lisa Carroll - 08/15/2023 3:32 PM EST Start folic acid supplement Decrease B12 to 3 weeks a month RTC 12 weeks Labs 1 week before documented in this encounterUniversity Hospitals Lake West [facility] Center01-31-2024 Nurse Note* Rosemary Ca MA - 08/15/2023 3:20 PM EST Patient would like to know if she can take a multi vitamin instead of all the individual vitamins she takes. Rosemary Rosa MA documented in this encounterUniversity Hospitals Lake West Medical Center01-31-2024 History of Present illness Narrative* Ana Enriquez MD - 08/15/2023 3:15 PM EST NAME: Laura Stephenson CLINIC NO.: [id number] DATE OF SERVICE: August 15, 2023 (Marguerite) Some elements in this clinic note that are critical to medical decision making have been carefully reviewed and included from a prior clinic note dated: May 21, 2023 (Nimisha). 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 This remains stable today However she was found to be B12 deficient and iron deficient and she has been on oral supplements since January 2023. Her iron studies and b12 level are pending today. If they remain low, we will offer IV iron and Im B12 injections. Hyponatremia--She will be following up with her PCP regarding this We will plan to see her in 3 months with repeat labs a week before. due to b12 deficiency as well as iron deficiency. PLAN: Start folic acid supplement Decrease oral B12 to 3 weeks a month RTC 12 weeks Labs 1 week before HPI: CASE HISTORY: 12/12/2022 - MRI Pancreas: Postoperative changes distal pancreatectomy with mildly increased size of 1.3 cm cystic lesion in the uncinate process, likely sidebranch IPMN. Decreased postoperative fluid collection and fat necrosis. Hepatic steatosis. 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 Crohn's --s/p 1994, total colectomy, on Entyvio and follows GI Updated Visit, August 15, 2023: Laura returns today to follow up. B12 looks great - decrease to 3 weeks a month. Folic acid is low - start taking supplement. Ferratin and Hgb are improving. She reports watery stool, likely caused by magnesium. Updated Visit, May 21, 2023: On Cipro now for pouchitis. She is taking iron daily 5 days a week. B12 orally daily. No BRB. Iron and B12 pending. Hgb stable. Updated Visit, February 16, 2023: Was noted to be B12 deficient Also appears to have iron deficiency anemia with decreased H/H and iron saturation and ferritin. Labs are stable otherwise. Blood sugars are elevated. Initial Visit, February 16, 2022: Laura Stephenson presents today Hematology and Oncology evaluation. She is a 61 year old female who underwent distal pancreas resection as well as splenectomy. She has resultant benign thrombocytosis that can be followed. She is recovering from surgery well. She has a prior history of UC and is following with GI. REVIEW OF SYSTEMS Per HPI and otherwise negative by full review of organ systems. ECOG PERFORMANCE STATUS: 1 PHYSICAL EXAMINATION: Vitals: BP 149/75 Pulse 60 Temp 36.3 C (97.4 F) (Temporal) Resp 16 Ht 165.1 cm (5' 5 ) Wt 90.2 kg(198 lb 13.7 oz) LMP 02/23/2011 SpO2 98% BMI 33.09 kg/m Body surface area is 2.03 meters squared. Exam limited to gross visualization where appropriate. Gen.: This is an age-appropriate patient in no acute distress. Head: Appears atraumatic with no visible lesions. Eyes: Pupils equally round and reactive to light, extraocular muscles are intact. Neck: Supple. Respiratory: Appears to be respiring comfortably. Neurologic: Nonfocal to gross visualization. Alert and oriented 3. Psychiatric: No evidence of inappropriate anxiety or depression. Skin: Visible areas of skin without rash, lesions, wounds or petechiae. ALLERGIES: ALLERGIES Allergen Reactions Azithromycin Unknown Metronidazole Itching Itching and redness Naproxen Penicillins Sulfa (Sulfonamide * Unknown Vancomycin Rash Zpack [Other] MEDICATIONS: MOUNJARO 5 mg/0.5 mL pen injector INJECT 5MG UNDER THE SKIN ONCE WEEKLY FOR 84 DAYS DIRECTED spironolactone (ALDACTONE) 25 mg tablet Take 1 tablet by mouth every afternoon. magnesium oxide (MAG-OX) 400 mg (241.3 mg magnesium) tablet Take 1 tablet by mouth every afternoon. hydrOXYchloroQUINE (PLAQUENIL) 200 mg tablet Take 1 tablet by mouth every 12 hours. ergocalciferol 50,000 unit capsule (VITAMIN D2, DRISDOL) Take by mouth. ciprofloxacin HCl (CIPRO) 250 mg tablet Take 1 tablet by mouth two times a day. diphenoxylate-atropine (LOMOTIL) 2.5-0.025 mg per tablet TAKE 1 TABLET BY MOUTH 3-4 TIMES DAILY NEEDED ferrous sulfate 325 mg (65 mg iron) tablet Take 325 mg by mouth five times a week. mecobalamin, vitamin B12, 1,000 mcg chew Take by mouth once daily. Syringe with Needle, Disp, 3 mL 25 gauge x 1 1 Syringe as directed. metFORMIN ER (GLUCOPHAGE XR) 500 mg 24 hr tablet TAKE 1 TABLET BY MOUTH EVERY DAY IN THE EVENING WITH MEAL insulin aspart U-100 (NOVOLOG) 100 unit/mL (3 mL) Inject subcutaneously. 2 UNITS IF GLUCOSE IS HIGH insulin lispro (HUMALOG KWIKPEN INSULIN) 100 unit/mL Inject 0-10 units three times daily following the sliding scale: If Blood Glucose (mg/dL) is <110 Give 0 units 111-150 Give 0 units 151-200 Give 2 unit 201-250 Give 4 units 251-300 Give 6 units 301-350 Give 8 units 351-400 Give 10 units >400 give 10units and notify provider. Insulin [place], Disposable, (BD ULTRA-FINE MIN PEN NEEDLE) 32 gauge x /32 1 Each three times daily. blood sugar diagnostic (BiBCOMTOUCH VERIO TEST STRIPS) test strip Use as instructed three times daily lancets (ONETOUCH DELICA PLUS LANCET) 33 gauge 1 Each three times daily. vedolizumab (ENTYVIO) 300 mg injection Infuse 300 mg every 4 weeks. Lactobacillus acidophilus (PROBIOTIC ORAL) Take by mouth. levothyroxine (SYNTHROID) 150 mcg tablet Take 1 tablet by mouth once daily. Omeprazole 40 mg capsule Take 40 mg by mouth once daily. FLUoxetine (PROZAC) 20 mg capsule Take 20 mg by mouth once daily. folic acid 1 mg tablet Take 1 tablet by mouth once daily. atenolol 25 mg tablet Take 25 mg by mouth once daily. (Patient not taking: Reported on 08/15/2023) LABORATORY VALUES: WBC (k/uL) Date Value 08/06/2023 7.86 RBC (m/uL) Date Value 08/06/2023 4.41 Hemoglobin (g/dL) Date Value 08/06/2023 13.0 Hematocrit (%) Date Value 08/06/2023 39.3 MCV (fL) Date Value 08/06/2023 89.1 MCH (pg) Date Value 08/06/2023 29.5 MCHC (g/dL) Date Value 08/06/2023 33.1 RDW-CV (%) Date Value 08/06/2023 15.5 (H) Platelet Count (k/uL) Date Value 08/06/2023 415 (H) MPV (fL) Date Value 08/06/2023 8.5 (L) Glucose (mg/dL) Date Value 08/06/2023 151 (H) BUN (mg/dL) Date Value 08/06/2023 12 Creatinine (mg/dL) Date Value 08/06/2023 0.97 (H) Sodium (mmol/L) Date Value 08/06/2023 135 (L) Potassium (mmol/L) Date Value 08/06/2023 4.4 Chloride (mmol/L) Date Value 08/06/2023 100 CO2 (mmol/L) Date Value 08/06/2023 26 Protein, Total (g/dL) Date Value 08/06/2023 6.7 Albumin (g/dL) Date Value 08/06/2023 3.9 Calcium, Total (mg/dL) Date Value 08/06/2023 9.7 Alkaline Phosphatase (U/L) Date Value 08/06/2023 72 Bilirubin, Total (mg/dL) Date Value 08/06/2023 0.3 AST (U/L) Date Value 08/06/2023 15 ALT (U/L) Date Value 08/06/2023 14 DIAGNOSIS: (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 (primary encounter diagnosis) Plan: CBC + DIFF, COMP METABOLIC PANEL, IRON + TIBC, FERRITIN BLD, VITAMIN B12 BLOOD, FOLATE SERUM (D50.8) Iron deficiency anemia secondary to inadequate dietary iron intake Plan: CBC + DIFF, COMP METABOLIC PANEL, IRON + TIBC, FERRITIN BLD, VITAMIN B12 BLOOD, FOLATE SERUM (D75.838, Z90.81) Thrombocytosis 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 Plan: CBC + DIFF, COMP METABOLIC PANEL, IRON + TIBC, FERRITIN BLD, VITAMIN B12 BLOOD, FOLATE SERUM PAST MEDICAL HISTORY Diagnosis Date Arthritis Chronic pain of left knee 12/09/2021 Diabetes mellitus (HCC) History of transfusion HTN (hypertension) Hypothyroidism Lichen sclerosus Rheumatoid arthritis (HCC) UC (ulcerative colitis) (HCC) PAST SURGICAL HISTORY Procedure Laterality Date ABDOMINAL SURGERY HX CHG DELIVERY PAST SURGICAL HISTORY OF 1995 2 stage j-pouch PAST SURGICAL HISTORY OF abdominal hernia x2 PICC LINE INSERT/CONSULT 12/23/2021 Social History Tobacco Use Smoking status: Never Smokeless tobacco: Never Vaping Use Vaping Use: Never used Substance Use Topics Alcohol use: Yes Comment: ocassionally Drug use: Never FAMILY HISTORY Problem Relation Age of Onset Anesthesia Problems No Family History I spent a total of 20 minutes on the date of service which included preparing to see the patient, [id number] patient care, completing clinical documentation, performing a medically appropriate examination, ordering medications, tests, or procedures, independently interpreting results (not separately reported), and communicating results to the patient/family/caregiver. Ana Enriquez MD, CPE Hematology and Oncology Services Provided at: [place], [place] Scribe Attestation: This note was scribed by Lisa Carroll on August 15, 2023 under the direction and supervision of Dr. Ana Enriquez. I attest that all of the information documented is correct to the best of myknowledge. Provider Attestation: I, Ana Enriquez MD, attest that all information documented by the above scribe is correct, and was supervised by me and under my direction. CC: Ashu Mittal [address] [facility] [address] [address], [address] [facility] [id number] documented in this encounterUniversity Hospitals [facility] Center01-08-2024 Evaluation note* Encounter Date Diagnosis Assessment Notes Treatment Notes Treatment Clinical Notes Jul, HTN (hypertension) (ICD-10 - I10 ) [facility] Other 12-30-2023 Evaluation note* Encounter Date Diagnosis Assessment Notes Treatment Notes Treatment Clinical Notes Jun, Bronchitis (ICD-10 - J40) Discussed CXR today, patient deferred. Afebrile O2 sat 99% on room air. Will treat for bronchitis. Advised patient if sx do not improve in the next 48 hours she needs to be reevaluated and CXR considered at that time. Patient instructed to take meds as directed. Discussed SE of steroid, advised mayincrease blood glucose and BP and to closely monitor if noticing elevations contact PCP. Avoid NSAIDs while on steroid. Take atb and steroid with food. Supportive care as discussed. Follow up if no impromvent despite treatement. Immediate eval by ER for warning ssx as discussed including worsening SOB/wheezing, difficulty breathing, fevers unresponsive to antipyretic. Patient verbalizes understanding and is agreeable to treatment plan. [email or web address] Other 12-13-2023 Evaluation note* Encounter Date Diagnosis Assessment Notes Treatment Notes Treatment Clinical Notes Jun, Bronchitis (ICD-10 - J40) Drink plenty fluids, get plenty of rest. Continue home medications as prescribed. Take the doxycycline and Medrol Dosepak as prescribed until gone. Start the Medrol Dosepak tomorrow. Be aware that the Medrol Dosepak may make your blood sugars elevated for a few days. Take the albuterol inhaler as pr escribed as needed for cough or shortness of breath. Take the benzonatate capsules as prescribed asneeded for cough. Take Tylenol or Motrin as needed for aches pains or fevers. Follow-up with your family physician if no improvement in 2 to 3 days [email or web address] Other 12-05-2023 Evaluation note* Encounter Date Diagnosis Assessment Notes Treatment Notes Treatment Clinical Notes Jun, Hypokalemia (ICD-10 - E87.6) [email or web address] Other 12-04-2023 Evaluation note* Encounter Date Diagnosis Assessment Notes Treatment Notes Treatment Clinical Notes Jun, Diabetes mellitus du e to underlying condition without complications (ICD-10 - E08.9) [email or web address] Other 11-21-2023 Evaluation note* Encounter Date Diagnosis Assessment Notes Treatment Notes Treatment Clinical Notes May, HTN (hypertension) (ICD-10 - I10 ) Given her chronic issues with sodium and potassium, we will stop hydrochlorothiazide and start spironolactone. She will call if she has any side effects or concerns with the medication May,hronic hyponatremia (ICD-10 - E87.1)She will repeat the lab work in 1 week May,cquired hypothyroidism (ICD-10 - E03.9)I advised her to start taking half of a dose every Sunday, we will recheck the lab at her next александр ointment May,Vitamin D deficiency (ICD-10 - E55.9)She will start [id number] vitamin D, no more than 2000 units/day May,Hypokalemia (ICD-10 - E87.6)Continue same dosing for now, I advised her that depending on her result with the spironolactone next week, we may be able to stop her potassium [email or web address] Other 11-09-2023 Evaluation note* Encounter Date Diagnosis Assessment Notes Treatment Notes Treatment Clinical Notes May, Dietary counseling and surveilla nce (ICD-10 - Z71.3) see above May,iabetes mellitus due to underlying condition without complications (ICD-10 - E08.9) 1. Controlled, a Type 2 diabetes with A1c of 5.6% 2. Blood glucose levels fasting am glucose above target. Recommend starting once weekly glp1/gip, Discussed with collaborating physician d/t hx cysts and partial pancreatectomy, agreeable with starting pt on this class of medication as long as no hx pancreatitis. No hx pancreatitis/men/mtc. Reviewed common s/e. Pt agreeable to starting mounjaro,sample mounjaro 2.5mg given, pt administered first dose to left abdomen, tolerated well. Reviewed with mounjaro 2.5mg once weekly x4 weeks then increase to 5mg once weekly. Coupon card given, instructed to activate card before picking up mounjaro and take card with her to pharmacy. Hold novolog corrective scale. Pt verbalizes understanding. Note: reported couldn't afford christopher cgm. 3. Patient is alert, oriented and receptive to making changes or counseling. Notes: Seen for an assessment of current glucose pattern, changes in treatment plan, counseling and coordination of care related to diabetes, risks, and benefits of treatment, medications, side effects. Given handouts to reinforce concepts reviewed during counseling, see scanned notes. TOPICS REVIEWED: 1. Time was spent reviewing: a. Basic concepts of diabetes, progressive beta cell , concepts of basal/bolus/corrective insulin requirements. Basal: The goal is fasting blood glucose of 90-130mg. IF fasting blood glucose starts to run under 100mg 3x's/ week, decrease dose by 10%. Bolus: The goal is to hold the blood glucose level steady meal to meal. If pt. is going to have increased physical activity after a meal, decrease the schedule meal dose prior to the activity by 30-50%. If pt. skips a meal do not take this dose. Correction: The goal is to correct an elevated glucose back into the 100-150mg range b. Nutrition: Concepts of healthy diet, encouraged to decrease saturated fat in diet and increase non-starchy vegetables and fruits in diet. BMI: Pt. needs to select one small change to decrease caloric intake or increase physical activity to help decrease weight. c. Correct treatment of hypoglycemia, carry a glucose source at all times on your person, in vehicles, and at bedside. Can use glucose tablets/4, four ounces of pop or juice equal to 15 G of carbohydrate. Blood glucose should be 100 mg/dl or higher when driving. d. ADA glucose goals for age and medical complexity reviewed e. Patientquestions addressed 2. Activity/exercise: Encouraged to start any form of physical activity. Start low level and increase slowly to a minimal goal of 150 minutes/week. Limit activity to what is allowed by other issues such as cardiac, pulmonary or orthopedic restrictions. 3. Standards of care: Reminded to have an annual dilated eye exam, A1C every 3 months, urine testing for microalbumin once/year, check feet daily and report any cuts or sores that do not appear to be healing. 4. Meter: Plan to check blood glucose: Please check blood glucose levels 4 times/day. Back to back meals reveal effectiveness of bolus dosing. The blood glucose data is used to determine insulin doses and confirm symptoms for hypoglycemia and hyperglcyemia.5. [facility]. Contact office if any issues or concerns with patterns of hypoglycemia, hyperglycemia, or diabetes medicationissues. 6. Prescriptions: [facility] - mounjaro 2.5mg x4 pens given sample. Sent mounjaro 5mg to pharmacy. 7. Prescriptions will not be filled unless you are compliant with follow up appointments or have a follow up appointment scheduled as ordered by your provider. Refills should be requested at the timeof your visit. May,Hyperlipidemia (ICD-10 - E78.5) 12/05 ldl 96 May,HTN (hypertension) (ICD-10 - I10) on antihypertensives May,Long term current use of insulin (ICD-10 - Z79.4) May,History of pancreatectomy (ICD-10 - Z90.410) May,MI 33.0-33.9,adult (ICD-10 - Z68.33) see above [employer] Other 11-08-2023 Miscellaneous Notes* Telephone Encounter - Sabino Burciaga RN - 05/23/2023 9:38 AM EST Results discussed with patient who would like to take the oral iron 7 days a week and she will callback to schedule labs in aug. She was encouraged to call back if she had any other questions or concerns Sabino Burciaga RN * Telephone Encounter - Marilee Bansal PA-C - 05/23/2023 8:25 AM EST Please inform her that her iron levels are still low. If she does not want IV iron, she could increase her oral iron to 7 days a week and recheck in 3 months. Or she can get IV venofer 300 mg weekly x3 doses. Marilee Bansal PA-C documented in this encounterUniversity Hospitals Lake [facility] Center11-06-2023 History of Present illness Narrative* Marilee Bansal PA-C - 05/21/2023 3:00 PM EST Images from the original note were not included. NAME: Laura Stephenson [facility] NO.: [id number] DATE OF SERVICE: May 21, 2023 (Nimisha) (Elements copied from Dr. 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 This remains stable today However she was found to be B12 deficient and iron deficient and she has been on oral supplements since January 2023. Her iron studies and b12 level are pending today. If they remain low, we will offer IV iron and Im B12 injections. Hyponatremia--She will be following up with her PCP regarding this We will plan to see her in 3 months with repeat labs a week before. due to b12 deficiency as well as iron deficiency. 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 Crohn's --s/p 1994, total colectomy, on Entyvio and follows GI Updated Visit, May 21, 2023: On Cipro now for pouchitis. She is taking iron daily 5 days a week. B12 orally daily. No BRB. Iron and B12 pending. Hgb stable. Updated Visit, February 16, 2023: Was noted to be B12 deficient Also appears to have iron deficiency anemia with decreased H/H and iron saturation and ferritin. Labs are stable otherwise. Blood sugars are elevated. Initial Visit, February 16, 2022: Laura Stephenson presents today Hematology and Oncology evaluation. She is a 61 year old female who underwent distal pancreas resection as well as splenectomy. She has resultant benign thrombocytosis that can be followed. She is recovering from surgery well. She has a prior history of UC and is following with GI. REVIEW OF SYSTEMS Per HPI and otherwise negative by full review of organ systems. ECOG PERFORMANCE STATUS: 1 PHYSICAL EXAMINATION: Vitals: BP 141/69 Pulse 64 Temp 36.4 C (97.6 F) (Temporal) Resp 16 Ht 165.1 cm (5' 5 ) Wt 93.3 kg(205 lb 9.6 oz) LMP 02/23/2011 SpO2 96% BMI 34.21 kg/m Body surface area is 2.07 meters squared. General: Alert and oriented, no distress, pleasant and cooperative. Heart: Regular, normal S1 and S2, no murmurs, rubs, or gallops Lungs: Clear to auscultation bilaterally Abdomen: Benign Extremities: Feet/ankles without edema, posterior tibial pulses full and symmetrical ALLERGIES: ALLERGIES Allergen Reactions Azithromycin Unknown Metronidazole Itching Itching and redness Naproxen Penicillins Sulfa (Sulfonamide * Unknown Vancomycin Rash Zpack [Other] MEDICATIONS: loperamide (IMODIUM) 2 mg cap(s) Take 1 capsule by mouth three times a day as needed. Syringe with Needle, Disp, 3 mL 25 gauge x 1 1 Syringe as directed. cyanocobalamin 1,000 mcg/mL Inject 1 mL once weekly for four weeks. (Patient not taking: Reported on 04/19/2023) cyanocobalamin 1,000 mcg/mL Inject 1 mL once monthly for 12 months. To start this therapy after completing 4 weekly doses. diphenoxylate-atropine (LOMOTIL) 2.5-0.025 mg per tablet 1 TABLET 3-4 TIMES DAILY NEEDED metFORMIN ER (GLUCOPHAGE XR) 500 mg 24 hr tablet TAKE 1 TABLET BY MOUTH EVERY DAY IN THE EVENING WITH MEAL insulin aspart U-100 (NOVOLOG) 100 unit/mL (3 mL) Inject subcutaneously. 2 UNITS IF GLUCOSE IS HIGH insulin lispro (HUMALOG KWIKPEN INSULIN) 100 unit/mL Inject 0-10 units three times daily following the sliding scale: If Blood Glucose (mg/dL) is <110 Give 0 units 111-150 Give 0 units 151-200 Give 2 unit 201-250 Give 4 units 251-300 Give 6 units 301-350 Give 8 units 351-400 Give 10 units >400 give 10units and notify provider. (Patient not taking: Reported on 04/19/2023) Insulin [place], Disposable, (BD ULTRA-FINE MIN PEN NEEDLE) 32 gauge x 5/32 1 Each three times daily. blood sugar diagnostic (ONETOUCH VERIO TEST STRIPS) test strip Use as instructed three times daily lancets (ONETOUCH DELICA PLUS LANCET) 33 gauge 1 Each three times daily. potassium chloride (K-TAB) 10 mEq tablet Take 10 mEq by mouth once daily. vedolizumab (ENTYVIO) 300 mg injection Infuse 300 mg every 4 weeks. Lactobacillus acidophilus (PROBIOTIC ORAL) Take by mouth. levothyroxine (SYNTHROID) 150 mcg tablet Take 1 tablet by mouth once daily. Omeprazole 40 mg capsule Take 40 mg by mouth once daily. hydroCHLOROthiazide (HYDRODIURIL, ESIDRIX) 25 mg tablet Take 25 mg by mouth once daily. FLUoxetine (PROZAC) 20 mg capsule Take 20 mg by mouth once daily. atenolol 25 mg tablet Take 25 mg by mouth once daily. LABORATORY VALUES: WBC (k/uL) Date Value 05/21/2023 8.34 RBC (m/uL) Date Value 05/21/2023 4.19 Hemoglobin (g/dL) Date Value 05/21/2023 12.1 Hematocrit (%) Date Value 05/21/2023 35.9 (L) MCV (fL) Date Value 05/21/2023 85.7 MCH (pg) Date Value 05/21/2023 28.9 MCHC (g/dL) Date Value 05/21/2023 33.7 RDW-CV (%) Date Value 05/21/2023 14.5 Platelet Count (k/uL) Date Value 05/21/2023 500 (H) MPV (fL) Date Value 05/21/2023 8.1 (L) Glucose (mg/dL) Date Value 05/21/2023 109 (H) BUN (mg/dL) Date Value 05/21/2023 14 Creatinine (mg/dL) Date Value 05/21/2023 0.73 Sodium (mmol/L) Date Value 05/21/2023 124 (L) Potassium (mmol/L) Date Value 05/21/2023 3.4 (L) Chloride (mmol/L) Date Value 05/21/2023 90 (L) CO2 (mmol/L) Date Value 05/21/2023 26 Protein, Total (g/dL) Date Value 05/21/2023 7.1 Albumin (g/dL) Date Value 05/21/2023 4.4 Calcium, Total (mg/dL) Date Value 05/21/2023 9.5 Alkaline Phosphatase (U/L) Date Value 05/21/2023 73 Bilirubin, Total (mg/dL) Date Value 05/21/2023 0.3 AST (U/L) Date Value 05/21/2023 22 ALT (U/L) Date Value 05/21/2023 15 DIAGNOSIS: (D75.838, Z90.81) Thrombocytosis 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 (primary encounter diagnosis) (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 (D50.8) Iron deficiency anemia secondary to inadequate dietary iron intake PAST MEDICAL HISTORY Diagnosis Date Arthritis Chronic pain of left knee 12/09/2021 Diabetes mellitus (HCC) History of transfusion HTN (hypertension) Hypothyroidism Lichen sclerosus Rheumatoid arthritis (HCC) UC (ulcerative colitis) (HCC) PAST SURGICAL HISTORY Procedure Laterality Date ABDOMINAL SURGERY HX CHG DELIVERY PAST SURGICAL HISTORY OF 1994 2 stage j-pouch PAST SURGICAL HISTORY OF abdominal hernia x2 PICC LINE INSERT/CONSULT 12/23/2021 Social History Tobacco Use Smoking status: Never Smokeless tobacco: Never Vaping Use Vaping Use: Never used Substance Use Topics Alcohol use: Yes Comment: ocassionally Drug use: Never FAMILY HISTORY Problem Relation Age of Onset Anesthesia Problems No Family History Marilee Bansal PA-C CC: Ashu Mittal [address] [facility] [address] [address] [facility] [address] [facility] [id number] documented in this encounterUniversity Hospitals Lake West [facility] Center10-06-2023 Miscellaneous Notes* Telephone Encounter - Janell Gallo RN - 04/20/2023 3:56 PM EDT Images from the original note were not included. Sodium level Received: Today Ashu Mittal MD sent to Janell Gallo RN Actually Janell I just saw that he sodium level is quite low - 123 She should reach out to her primary care provider THUAN to discuss this since it may require additional testing/evaluation Can you call her and let her knwo? Contacted pt regarding the above. Pt reports she spoke to Dr. Mittal today regarding results and willfollow up with PCP next week. Reviewed s/s of hyponatremia and advised patient to report to the ED if she develops and concerning symptoms prior to when she is able to see PCP. Pt verbalized understanding. Janell Gallo RN April 20, 2023 4:00 PM documented in this encounterUniversity Hospitals Lake [facility] Center10-06-2023 Miscellaneous Notes* Telephone Encounter - Ashu Mittal MD - 04/20/2023 2:51 PM EDT Called patient to relay the results of blood testing. Hyponatremic and Hypokalemic. Recommended that the patient reach out to PCP to schedule follow up and repeat testing. Currently reports that she is overall asymptomatic and denies any complaints. Reports that she is having no diarrhea and makingurine. documented in this encounterUniversity Hospitals Lake [facility] Center10-05-2023 History of Present illness Narrative* Ashu Mittal MD - 04/19/2023 4:40 PM EDT Follow Up Visit SUBJECTIVE 62 year old female with ulcerative colitis here for follow-up. Last seen 02/02/2022. Changes and test results since last visit: Patient underwent pouchoscopy 03/27/2023 there was anal stricture on rectal examination, there was mild pouch inflammation (~10% of the pouch) predominantly at the pouch inlet with circumferential inflammation and narrowing of the pouch inlet, but no stricture, characterized by pseudopolyps. Mild to moderate inflammation of the pre-pouch ileum, with ulceration. Inflammation most severe in the immediate pre-pouch ileum proximal to the pouch inlet. Pre-pouch ileum >10cm from the pouch inlet sparingly inflamed with few ulcers. Clinically, she responded well to the ciprofloxacin with reduction in bowel movements to up to 3 daily with no nocturnal symptoms compared to up to 6-8 bowel disease. CBC: WBC (k/uL) Date Value 02/16/2023 10.43 Hematocrit (%) Date Value 02/16/2023 34.4 (L) MCV (fL) Date Value 02/16/2023 85.4 Platelet Count (k/uL) Date Value 02/16/2023 604 (H) Lymphocytes % (%) Date Value 02/16/2023 21.7 Hepatic Function Panel: Albumin (g/dL) Date Value 02/16/2023 3.8 (L) Bilirubin, Total (mg/dL) Date Value 02/16/2023 0.4 Alkaline Phosphatase (U/L) Date Value 02/16/2023 78 AST (U/L) Date Value 02/16/2023 19 ALT (U/L) Date Value 02/16/2023 16 Protein, Total (g/dL) Date Value 02/16/2023 6.9 Pouch History Template Pouch History Disease Type: Ulcerative Colitis Medications PRIOR to Pouch Surgery: Corticosteroids and 5-ASA Date of Pouch Creation (Mo/Year): 1994 Pouch Indication: Medically refractory disease Type of Pouch: J pouch (IPAA) Number of Pouch Operative Stages: 2 (proctocolectomy + pouch creation + diverting ileostomy, subsequent ileostomy takedown) Pouch Complications: Crohn's-like disease of Pouch Medications Received AFTER Pouch Surgery: Antibiotics Date of Last Pouchoscopy (Mo/Year): Current Pouch Symptoms Average number of bowel movements in 24 hour period: 3 Stool Frequency: Usual stool frequency since pouch surgery Rectal Bleeding: None or rare Fecal Urgency: Occasional Abdominal Cramps: None Fever (>100 F) in last 24 hours: No Number of nocturnal bowel movements: 0 Incontinence or Fecal Accidents in last week: 0None Anti-Diarrheal use: Yes, one per meal Fecal Seepage:No Use of Pads/Adult Diapers: No Current Clinical Symptoms # of bowel movements daily: 3-4 # of liquid stools daily: 0 Consistency: soft, mushy Bloody bowel movements: no Urgency: no Abdominal pain: no Abdominal distention: no Nausea/vomiting: no Weight loss over last 3 months: no General well-being: Average Patient-Entered Data SIBDQ Scores 08/08/2022 04/13/2023 Bowel Score Incomplete 7 Emotional Score Incomplete 6.33 Systemic Score Incomplete Incomplete Social Score Incomplete Incomplete Total Score Incomplete Incomplete PRO-2 Crohn's Score 08/08/2022 01/01/2023 04/13/2023 Crohn's Disease Score 32 Incomplete Incomplete PROMIS Global Health - (T-Scores - the mean of general population = 50. Five points is a clinicallymeaningful difference.) 08/08/2022 01/01/2023 04/13/2023 Physical T-Score 47.7 50.8 50.8 Mental T-Score 45.8 53.3 45.8 PROMIS Global Health Scale 08/08/2022 01/01/2023 04/13/2023 Physical Health Percentile 41 % 53 % 53 % Mental Health Percentile 34 % 63 % 34 % Current Outpatient Medications Medication Sig Dispense Refill ciprofloxacin HCl (CIPRO) 500 mg tablet Take 1 tablet by mouth twice daily. 60 tablet 0 Syringe with Needle, Disp, 3 mL 25 gauge x 1 1 Syringe as directed. 16 Each 0 cyanocobalamin 1,000 mcg/mL Inject 1 mL once monthly for 12 months. To start this therapy after completing 4 weekly doses. 12 mL 0 diphenoxylate-atropine (LOMOTIL) 2.5-0.025 mg per tablet 1 TABLET 3-4 TIMES DAILY NEEDED 120 tablet 12 metFORMIN ER (GLUCOPHAGE XR) 500 mg 24 hr tablet TAKE 1 TABLET BY MOUTH EVERY DAY IN THE EVENING WITH MEAL insulin aspart U-100 (NOVOLOG) 100 unit/mL (3 mL) Inject subcutaneously. 2 UNITS IF GLUCOSE IS HIGH Insulin [place], Disposable, (BD ULTRA-FINE MIN PEN NEEDLE) 32 gauge x 5/32 1 Each three times daily. 100 Each 2 blood sugar diagnostic (BiBCOMTOUCH VERIO TEST STRIPS) test strip Use as instructed three times daily 100 Strip 2 lancets (TradeCardUCH DELICA PLUS LANCET) 33 gauge 1 Each three times daily. 100 Each 2 potassium chloride (K-TAB) 10 mEq tablet Take 10 mEq by mouth once daily. vedolizumab (ENTYVIO) 300 mg injection Infuse 300 mg every 4 weeks. 1 Each 5 Lactobacillus acidophilus (PROBIOTIC ORAL) Take by mouth. levothyroxine (SYNTHROID) 150 mcg tablet Take 1 tablet by mouth once daily. 30 tablet 0 Omeprazole 40 mg capsule Take 40 mg by mouth once daily. hydroCHLOROthiazide (HYDRODIURIL, ESIDRIX) 25 mg tablet Take 25 mg by mouth once daily. FLUoxetine (PROZAC) 20 mg capsule Take 20 mg by mouth once daily. atenolol 25 mg tablet Take 25 mg by mouth once daily. cyanocobalamin 1,000 mcg/mL Inject 1 mL once weekly for four weeks. (Patient not taking: Reported on 04/19/2023) 4 mL 0 insulin lispro (HUMALOG KWIKPEN INSULIN) 100 unit/mL Inject 0-10 units three times daily following the sliding scale: If Blood Glucose (mg/dL) is <110 Give 0 units 111-150 Give 0 units 151-200 Give 2 unit 201-250 Give 4 units 251-300 Give 6 units 301-350 Give 8 units 351-400 Give 10 units >400 give 10units and notify provider. (Patient not taking: Reported on 04/19/2023) 5 Pen 2 No current facility-administered medications for this visit. ALLERGIES Allergen Reactions Azithromycin Unknown Metronidazole Itching Itching and redness Naproxen Penicillins Sulfa (Sulfonamide * Unknown Vancomycin Rash Zpack [Other] PHYSICAL EXAMINATION BP 137/55 Pulse 58 Temp (Src) 98 (Temporal) Ht 5' 5 (1.65m) Wt 200 lb (90.7kg) SpO2 98% LMP 02/23/2011 BMI 33.28 kg/(m^2). General Appearance: alert, oriented x 3, pleasant and in no acute distress Heart:regular rate and rhythm, no murmurs or gallops Abdomen: Not distended. Normal bowel sounds. Soft and non-tender. No masses or organomegaly. Skin: no rashes or lesions Lymph:No cervical, axillary, supraclavicular, or inguinal adenopathy. Pouchoscopy 03/27/2023 - Impression: - Anal stricture found on digital rectal exam. - Rectal cuff with healthy appearing mucosa seen. Biopsied. - Mild pouch inflammation with ulceration of nearly 10% of the pouch. - Inflammation most severe at the pouch inlet with circumferential inflammation and narrowing of the pouch inlet, but no stricture, characterized by pseudopolyps. Three of the pseudopolyps were removed to open the inlet. - Mild to moderate inflammation of the pre-pouch ileum, with ulceration. Inflammation most severe in the immediate pre-pouch ileum proximal to the pouch inlet. Pre-pouch ileum >10cm from the pouch inlet sparingly inflamed with few ulcers. - Overall appearance is stable, and would continue current vedolizumab, and consider addition of antibiotics as needed. Assessment IMPRESSION Ms. Stephenson is a 62 y/o woman with a medical history of ulcerative colitis s/p IPAA creation in 1994 (2 stage). In 2020 she experienced pSBO showing a pouch inlet stricture along with post-stenotic dilation on CT, pouchoscopy revealing of pre-pouch, pouch inlet, and pouch inflammation, which has responded clinically to ciprofloxacin symptomatically, repeat pouchoscopy showed ongoing active inflammation of the pouch, pre-pouch (immediate), despite course of budesonide. Currently on vedolizumab Q4 weeks with clinical improvement. In recent pouchoscopy 03/2023 there was mild pouch inflammation (~10% of the pouch) predominantly at the pouch inlet with circumferential inflammation and narrowingof the pouch inlet, but no stricture, characterized by pseudopolyps. Mild to moderate inflammation of the pre-pouch ileum, with ulceration. Inflammation most severe in the immediate pre-pouch ileum proximal to the pouch inlet. Pre-pouch ileum >10cm from the pouch inlet sparingly inflamed with few ulcers. She has reponded clinically to course of abx (cipro) in terms of frequency, cramping, urgency and incontinence. Her past surgical history is notable for IPMN, with a distal pancreatectomy and splenectomy. Physician Global Assessment of Disease Activity: moderate disease PLAN Continuing ciprofloxacin 500 mg twice daily for 2-3 months. Follow-up with Dr Mittal in 3 months with updated blood count, CMP, and CRP She will continue the vedolizumab at every 4 weeks dosing PATIENT IS OK TO BE CONTACTED BY IBD GI RESEARCH TEAM TO EXPLORE PARTICIPATION IN RESEARCH STUDIES Attending Note I evaluated the patient and personally participated in the chu components by Dr. Jacome. I agree with the fellow's findings and plan as documented and have discussed the case and management of the patient's care with the fellow. Ms. Stephenson is a 62 y/o woman with a medical history of ulcerative colitis s/p IPAA creation in 1994 (2 stage). In 2020 she experienced pSBO showing a pouch inlet stricture along with post-stenotic dilation on CT, pouchoscopy revealing of pre-pouch, pouch inlet, and pouch inflammation, which has responded clinically to ciprofloxacin symptomatically, repeat pouchoscopy showed ongoing active inflammation of the pouch, pre-pouch (immediate), despite course of budesonide. Considering this, would favor use of ongoing Ciprofloxacin with a plan for a re-evaluation in the next 8-12 months to assess any improvement in disease. Would consider de-escalating antibiotic to lowest dose with clinical improvement. Signature: Ashu Mittal MD Date: April 25, 2023 Time: 9:00 AM Ashu Mittal MD April 19, 2023 8:33 AM documented in this encounterUniversity Hospitals [facility]09-12-2023 Nurse Note* Jennifer Davies LPN - 03/27/2023 4:06 PM EDT FRANCISCO JAVIER Martinez Verified end of propofol infusion time at 1510. Jennifer Davies LPN * Jennifer Davies LPN - 03/27/2023 3:33 PM EDT Patient has 22ga IV on Left AC, dry and intact removed per DC order Jennifer Davies LPN * Jennifer Davies LPN - 03/27/2023 3:29 PM EDT AMBULATORY PATIENT EDUCATION NOTE TOPIC: GI PROCEDURES: Pouchoscopy with or without biopsies based on clinical findings READINESS TO LEARN INSTRUCTION PROVIDED TO: Patient and family member COGNITIVE ABILITY: Alert and oriented PTED MOTIVATION TO LEARN: Interested FAMILY SUPPORT: High - Very involved in pt care IPATIENT LEARNS BEST BY: Individual Instruction Written Instruction - Hand-outs Verbal Instruction FACTORS AFFECTING LEARNING: None PHYSICAL LIMITATIONS AFFECTING LEARNING: None LEARNING RESPONSE METHOD OF INSTRUCTION: Individual instruction PATIENT / FAMILY RESPONSE: Verbalizes understanding of: WORSENING CONDITION- Signs and symptoms of aworsening condition that warrant a call to the physician FOLLOW-UP PLAN: Recommend - Recommend continued instruction and follow up as directed SUPPLEMENTAL MATERIAL: Procedure Discharge Instructions REFERRAL (RECOMMENDATION): None Electronically Signed By: Jennifer Davies LPN * Veronica Contreras RN - 03/27/2023 1:13 PM EDT PRE OP LEARNING ASSESSMENT PROCEDURE/SURGERY: GI PROCEDURES: pouch READINESS TO LEARN COGNITIVE ABILITY: Alert and oriented MOTIVATION TO LEARN: Interested FAMILY SUPPORT: None - Unavailable/disinterested PATIENT LEARNS BEST BY: Individual Instruction FACTORS AFFECTING LEARNING: None PHYSICAL LIMITATIONS AFFECTING LEARNING: None Electronically Signed By: Veronica Contreras, RN In Department: GASTROENTEROLOGY documented in this encounterUniversity Hospitals [facility]09-12-2023 Miscellaneous Notes* Sedation Documentation - Jacki Moss RN - 03/27/2023 2:59 PM EDT pt. passing flatus documented in this encounterUniversity Hospitals Lake [facility]09-12-2023 History and physical note * Ashu Mittal MD - 03/27/2023 2:30 PM EDT HISTORY AND PHYSICAL Laura Stephenson, 62 year old female Current history and physical on file: Yes Is a new History and Physical required for today's visit? Yes Indication for procedure: IBD PROCEDURE(S) SCHEDULED FOR: Pouchoscopy, with or without biopsies, removal of polyps or lesions, dilation (any means), treatment of bleeding (any means) based on clinical findings. BASELINE BEHAVIOR: Calm BASELINE ORIENTATION: A & O x3 All medications and allergies reviewed: Yes Skin Assessment: Warm dry mucus membranes pink Airway/Respiratory Assessment: Airway: visualization of the uvula- Yes Mouth: opening greater than 2 fingerbreadths- Yes Neck: full range of motion- Yes Breath sounds clear/equal- Yes Cardiac Assessment: Regular rate and rhythm without murmur Abdominal Assessment: Abdomen soft, non-tender, no masses or organomegaly. Sedation Plan: MAC Additional Comments: None sAhu Mittal MD documented in this encounterUniversity Hospitals Lake [facility]08-04-2023 Instructions* Patient Instructions* Ana Enriquez MD - 02/16/2023 9:11 AM EDT Oral iron supplement take 5 days / week once daily - OTC B12 supplements under the tongue in addition to shots at home RTC in 3 months Labs 1 week prior documented in this encounterUniversity Hospitals [facility]08-04-2023 History of Present illness Narrative* Ana Enriquez MD - 02/16/2023 8:53 AM EDT Images from the original note were not included. 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 However she is anemic due to b12 deficiency as well as iron deficiency. 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 Updated Visit, February 16, 2023: Was noted to be B12 deficient Also appears to have iron deficiency anemia with decreased H/H and iron saturation and ferritin. Labs are stable otherwise. Blood sugars are elevated. Initial Visit, February 16, 2022: Laura Stephenson presents today Hematology and Oncology evaluation. She is a 61 year old female who underwent distal pancreas resection as well as splenectomy. She has resultant benign thrombocytosis that can be followed. She is recovering from surgery well. She has a prior history of UC and is following with GI. REVIEW OF SYSTEMS Per HPI and otherwise negative by full review of organ systems. ECOG PERFORMANCE STATUS: 1 PHYSICAL EXAMINATION: Vitals: BP 129/62 Pulse 70 Temp (Src) 97.6 (Temporal) Resp 16 Ht 5' 5 (1.65m) Wt 200 lb 12.8 oz (91.1kg) SpO2 97% LMP 02/23/2011 BMI 33.41 kg/(m^2). Body surface area is 2.04 meters squared. Exam limited to gross visualization where appropriate. Gen.: This is an age-appropriate patient in no acute distress. Head: Appears atraumatic with no visible lesions. Eyes: Pupils equally round and reactive to light, extraocular muscles are intact. Neck: Supple. Respiratory: Appears to be respiring comfortably. Neurologic: Nonfocal to gross visualization. Alert and oriented 3. Psychiatric: No evidence of inappropriate anxiety or depression. Skin: Visible areas of skin without rash, lesions, wounds or petechiae. ALLERGIES: ALLERGIES Allergen Reactions Azithromycin Unknown Metronidazole Itching Itching and redness Naproxen Penicillins Sulfa (Sulfonamide * Unknown Vancomycin Rash Zpack [Other] MEDICATIONS: Syringe with Needle, Disp, 3 mL 25 gauge x 1 1 Syringe as directed. cyanocobalamin 1,000 mcg/mL Inject 1 mL once monthly for 12 months. To start this therapy after completing 4 weekly doses. metFORMIN ER (GLUCOPHAGE XR) 500 mg 24 hr tablet TAKE 1 TABLET BY MOUTH EVERY DAY IN THE EVENING WITH MEAL insulin aspart U-100 (NOVOLOG) 100 unit/mL (3 mL) Inject subcutaneously. 2 UNITS IF GLUCOSE IS HIGH insulin lispro (HUMALOG KWIKPEN INSULIN) 100 unit/mL Inject 0-10 units three times daily following the sliding scale: If Blood Glucose (mg/dL) is <110 Give 0 units 111-150 Give 0 units 151-200 Give 2 unit 201-250 Give 4 units 251-300 Give 6 units 301-350 Give 8 units 351-400 Give 10 units >400 give 10units and notify provider. Insulin [place], Disposable, (BD ULTRA-FINE MIN PEN NEEDLE) 32 gauge x 5/32 1 Each three times daily. blood sugar diagnostic (TradeCardUCH VERIO TEST STRIPS) test strip Use as instructed three times daily lancets (BiBCOMTOUCH DELICA PLUS LANCET) 33 gauge 1 Each three times daily. potassium chloride (K-TAB) 10 mEq tablet Take 10 mEq by mouth once daily. vedolizumab (ENTYVIO) 300 mg injection Infuse 300 mg every 4 weeks. Lactobacillus acidophilus (PROBIOTIC ORAL) Take by mouth. Omeprazole 40 mg capsule Take 40 mg by mouth once daily. hydroCHLOROthiazide (HYDRODIURIL, ESIDRIX) 25 mg tablet Take 25 mg by mouth once daily. FLUoxetine (PROZAC) 20 mg capsule Take 20 mg by mouth once daily. atenolol 25 mg tablet Take 25 mg by mouth once daily. cyanocobalamin 1,000 mcg/mL Inject 1 mL once weekly for four weeks. diphenoxylate-atropine (LOMOTIL) 2.5-0.025 mg per tablet 1 TABLET 3-4 TIMES DAILY NEEDED levothyroxine (SYNTHROID) 150 mcg tablet Take 1 tablet by mouth once daily. LABORATORY VALUES: WBC (k/uL) Date Value 02/16/2023 10.43 RBC (m/uL) Date Value 02/16/2023 4.03 Hemoglobin (g/dL) Date Value 02/16/2023 11.5 Hematocrit (%) Date Value 02/16/2023 34.4 (L) MCV (fL) Date Value 02/16/2023 85.4 MCH (pg) Date Value 02/16/2023 28.5 MCHC (g/dL) Date Value 02/16/2023 33.4 RDW-CV (%) Date Value 02/16/2023 15.9 (H) Platelet Count (k/uL) Date Value 02/16/2023 604 (H) MPV (fL) Date Value 02/16/2023 8.0 (L) Glucose (mg/dL) Date Value 02/16/2023 197 (H) BUN (mg/dL) Date Value 02/16/2023 13 Creatinine (mg/dL) Date Value 02/16/2023 0.71 Sodium (mmol/L) Date Value 02/16/2023 132 (L) Potassium (mmol/L) Date Value 02/16/2023 3.6 (L) Chloride (mmol/L) Date Value 02/16/2023 95 (L) CO2 (mmol/L) Date Value 02/16/2023 26 Protein, Total (g/dL) Date Value 02/16/2023 6.9 Albumin (g/dL) Date Value 02/16/2023 3.8 (L) Calcium, Total (mg/dL) Date Value 02/16/2023 9.6 Alkaline Phosphatase (U/L) Date Value 02/16/2023 78 Bilirubin, Total (mg/dL) Date Value 02/16/2023 0.4 AST (U/L) Date Value 02/16/2023 19 ALT (U/L) Date Value 02/16/2023 16 DIAGNOSIS: (D75.838, Z90.81) Thrombocytosis 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 (primary encounter diagnosis) Plan: CBC + DIFF, COMP METABOLIC PANEL, IRON + TIBC, FERRITIN BLD, VITAMIN B12 BLOOD, FOLATE SERUM (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 Plan: CBC + DIFF, COMP METABOLIC PANEL, IRON + TIBC, FERRITIN BLD, VITAMIN B12 BLOOD, FOLATE SERUM (D50.8) Iron deficiency anemia secondary to inadequate dietary iron intake Plan: CBC + DIFF, COMP METABOLIC PANEL, IRON + TIBC, FERRITIN BLD, VITAMIN B12 BLOOD, FOLATE SERUM PAST MEDICAL HISTORY Diagnosis Date Arthritis Chronic pain of left knee 12/09/2021 Diabetes mellitus (HCC) History of transfusion HTN (hypertension) Hypothyroidism Lichen sclerosus Rheumatoid arthritis (HCC) UC (ulcerative colitis) (HCC) PAST SURGICAL HISTORY Procedure Laterality Date ABDOMINAL SURGERY HX CHG DELIVERY PAST SURGICAL HISTORY OF 1994 2 stage j-pouch PAST SURGICAL HISTORY OF abdominal hernia x2 PICC LINE INSERT/CONSULT 12/23/2021 Social History Tobacco Use Smoking status: Never Smokeless tobacco: Never Vaping Use Vaping Use: Never used Substance Use Topics Alcohol use: Yes Comment: ocassionally Drug use: Never FAMILY HISTORY Problem Relation Age of Onset Anesthesia Problems No Family History I spent a total of 30 minutes on the date of the service which included preparing to see the patient, [id number] patient care, completing clinical documentation, obtaining and/or reviewing separately obtained history, performing a medically appropriate examination, counseling and educating the pat ient/family/caregiver, and ordering medications, tests, or procedures. Ana Enriquez MD, CPE Hematology and Oncology Services Provided at: [place], [place] CC: Ashu Mittal [address] [facility] [address] [address]al[address], [address] [facility] [id number] documented in this encounterUniversity Hospitals Lake [facility]07-10-2023 History of Present illness Narrative* Jamari Barton MD - 01/22/2023 10:39 AM EDT Consultation requested by Dr. Theron Harris for an opinion regarding incisional hernia. My final recommendations will be communicated back to the requesting physician by way of shared medical record or letter via US mail. Laura Stephenson is a 62 year old female who presents with recurrent incisional hernia. She has undergone proctocolectomy with j-pouch and DLI with subsequent DLI reversal. She underwent distal pancreatectomy for IPMN with Vicryl mesh inlay in 2021. She has a 15 cm midline incisional hernia on a recent MRI. She is not sure she wants hernia repair now. I will see her back in 6 months. I have seen and evaluated the patient and discussed the case with the resident physician. I agree with the assessment and plan as documented in the resident s note including a ROS that was reviewed and negative other than what was indicated in our notes. Patient consented for study? Not applicable * Raghav Montano MD - 01/22/2023 10:04 AM EDT [facility] Abdominal [facility] - HISTORY AND PHYSICAL Chief Complaint: multiply recurrent ventral/incisional hernia HPI: 61yoF PMH UC (on entyvio) s/p total proctocolectomy with J-pouch and DLI creation (1994), incisional hernia repair (1996), one additional ventral hernia repair with mesh (unknown year), DLI takedown (1994), ex-lap for SBO (2012), mixed-type IPMN s/p lap converted to open distal pancreatectomy and splenectomy, cholecystectomy, repair of recurrent incisional hernia with vicryl mesh 12/19/2021. Other PSH: PMH: RA, UC, HTN, DM2, esophageal stricture s/p EGD dilations No history of Psychiatric Disorders or Opioid Use Independent Desk-based labor, rest Sporadic (once/month) Hypertension, Diabetes Mellitus, Immunosuppressants - other immunomodulators (entyvio) Hernia related to previous cancer operation (distal panc for IPMN) PAST MEDICAL HISTORY Diagnosis Date Arthritis Chronic pain of left knee 12/09/2021 Diabetes mellitus (HCC) History of transfusion HTN (hypertension) Hypothyroidism Lichen sclerosus Rheumatoid arthritis (HCC) UC (ulcerative colitis) (HCC) PAST SURGICAL HISTORY Procedure Laterality Date ABDOMINAL SURGERY HX CHG DELIVERY PAST SURGICAL HISTORY OF 1994 2 stage j-pouch PAST SURGICAL HISTORY OF abdominal hernia x2 PICC LINE INSERT/CONSULT 12/23/2021 Social History Tobacco Use Smoking status: Never Smokeless tobacco: Never Vaping Use Vaping Use: Never used Substance Use Topics Alcohol use: Yes Comment: ocassionally Drug use: Never Additional social history not relevant to the patient's HPI FAMILY HISTORY Problem Relation Age of Onset Anesthesia Problems No Family History Additional family history not relevant to the patient's HPI ALLERGIES Allergen Reactions Azithromycin Unknown Metronidazole Itching Itching and redness Naproxen Penicillins Sulfa (Sulfonamide * Unknown Vancomycin Rash Zpack [Other] Current Outpatient Medications Medication Sig Dispense Refill Syringe with Needle, Disp, 3 mL 25 gauge x 1 1 Syringe as directed. 16 Each 0 cyanocobalamin 1,000 mcg/mL Inject 1 mL once weekly for four weeks. 4 mL 0 cyanocobalamin 1,000 mcg/mL Inject 1 mL once monthly for 12 months. To start this therapy after completing 4 weekly doses. 12 mL 0 diphenoxylate-atropine (LOMOTIL) 2.5-0.025 mg per tablet 1 TABLET 3-4 TIMES DAILY NEEDED 120 tablet 12 metFORMIN ER (GLUCOPHAGE XR) 500 mg 24 hr tablet TAKE 1 TABLET BY MOUTH EVERY DAY IN THE EVENING WITH MEAL insulin aspart U-100 (NOVOLOG) 100 unit/mL (3 mL) Inject subcutaneously. 2 UNITS IF GLUCOSE IS HIGH insulin lispro (HUMALOG KWIKPEN INSULIN) 100 unit/mL Inject 0-10 units three times daily following the sliding scale: If Blood Glucose (mg/dL) is <110 Give 0 units 111-150 Give 0 units 151-200 Give 2 unit 201-250 Give 4 units 251-300 Give 6 units 301-350 Give 8 units 351-400 Give 10 units >400 give 10units and notify provider. 5 Pen 2 Insulin [place], Disposable, (BD ULTRA-FINE MIN PEN NEEDLE) 32 gauge x 5/32 1 Each three times daily. 100 Each 2 blood sugar diagnostic (ONETOUCH VERIO TEST STRIPS) test strip Use as instructed three times daily 100 Strip 2 lancets (ONETOUCH DELICA PLUS LANCET) 33 gauge 1 Each three times daily. 100 Each 2 potassium chloride (K-TAB) 10 mEq tablet Take 10 mEq by mouth once daily. vedolizumab (ENTYVIO) 300 mg injection Infuse 300 mg every 4 weeks. 1 Each 5 Lactobacillus acidophilus (PROBIOTIC ORAL) Take by mouth. levothyroxine (SYNTHROID) 150 mcg tablet Take 1 tablet by mouth once daily. 30 tablet 0 Omeprazole 40 mg capsule Take 40 mg by mouth once daily. hydroCHLOROthiazide (HYDRODIURIL, ESIDRIX) 25 mg tablet Take 25 mg by mouth once daily. FLUoxetine (PROZAC) 20 mg capsule Take 20 mg by mouth once daily. atenolol 25 mg tablet Take 25 mg by mouth once daily. No current facility-administered medications for this visit. REVIEW OF SYSTEMS The remainder of the 12 review of systems is negative other than what was mentioned in the HPI and above. BP 115/65 Pulse 62 Temp 36.7 C (98 F) (Temporal) Ht 165.1 cm (5' 5 ) Wt 89.8 kg (198 lb) LMP 02/23/2011 BMI 32.95 kg/m Physical findings of this patient are as follows (COMPLETE 10 INCLUDING HEART AND LUNG EXAM OR CHOOSE NORMAL EXAM IF APPROPRIATE): Physical Exam Physical Exam Constitutional: The patient is well-developed, well-nourished, and in no distress. Head: Normocephalic and atraumatic. Eyes: Pupils are equal, round, and reactive to light. EOM are normal. Neck: Normal range of motion. Neck supple. Cardiovascular: Regular rhythm and normal heart sounds. Pulmonary/Chest: Effort normal and breath sounds normal. Abdominal: Soft. Bowel sounds are normal. Musculoskeletal: Normal range of motion. Neurological: He is alert. GCS score is 15. Skin: Skin is warm and dry. Psychiatric: Affect and judgment normal. Relevant Hernia Findings - large, wide-neck ventral/incision hernia, nontender LABS: Hemoglobin A1C (%) Date Value 12/09/2021 5.8 IMAGING - Reviewed with staff MRI: wide-neck recurrent incisional hernia in midline (~18cm wide, ~13cm long) Assessment: Laura Stephenson is a 62yoF with UC (on entyvio), h/o TAC +IPAA, recent lap->open distal pancreatectomy for IPMN (12/2021, Dr. Harris), where the fascia required closure with a double-layervicryl inlay mesh. Patient presents with large wide-neck incisional hernia. She does not feel readyfor abdominal wall repair at this time. Plan: Follow-up in 6 months to re-assess Raghav Montano MD PGY3, General Surgery Phone #: [phone] documented in this encounterUniversity Hospitals Lake [facility] Center07-10-2023 Nurse Note* Rubina Curtis Ma - 01/22/2023 9:22 AM EDT What is the reason for your visit today? consult Who is your referring physician? Dr. Barton Are you having poor oral intake? NO Have you had unintentional weight loss of 15 lbs/7 Kg in the last 3-6 months? NO Bowels: regular Wound: clean & dry Temperature: No Drains: No documented in this encounterUniversity Hospitals Lake West [facility] Center07-06-2023 Evaluation note* Encounter Date Diagnosis Assessment Notes Treatment Notes Treatment Clinical Notes Jan, Diabetes mellitus du e to underlying condition without complications (ICD-10 - E08.9) [email or web address] Other [id number] Miscellaneous Notes* Telephone Encounter - Janell Gallo RN - 01/08/2023 1:41 PM EDT Images from the original note were not included. Can you call her? PRIORITY Received: Today Ashu Mittal MD sent to [facility] Can you call her? Her electrolyte panel shows some anomalities in sodium and chloride which are likely related to herhigh blood glucose. She needs to talk to her local provider to have this redrawn sooner rather thanlater. If she's having any symptoms of hyperglycemia she should go to the ED. He B12 is also low, i'm hoping you send me an order for b12 and shots Thanks Contacted pt and advised of the above results and recommendation. Pt verbalized understanding and confirmed pharmacy. Reports she will follow up with her local PCP. Janell Gallo RN January 08, 2023 1:42 PM documented in this encounterUniversity Hospitals Lake West [facility] Center06-22-2023 Miscellaneous Notes* Telephone Encounter - Janell Gallo RN - 01/04/2023 2:03 PM EDT Message Received: Today Ashu Mittal MD sent to [facility] Can you please remind her to get he rlabs at the local [facility] lab facility. If she is unable we can send the orders via e-mail Ashu Contacted pt and she reports that she will go to the lab in [place] tomorrow. Janell Gallo RN January 04, 2023 2:03 PM documented in this encounterUniversity Hospitals Lake West Medical Center06-02-2023 Miscellaneous Notes* Telephone Encounter - Pam Miller - 12/15/2022 3:35 PM EDT I called the patient today regarding follow-up for the study IRB# [id number]: Tight perioperative bloodpressure management to reduce serious cardiovascular, renal, and cognitive complications: The GUARDIAN trial. The PI of the study is Theron Baker MD. The patient did mention experiencing an AE/RONAL. The 12-month follow up with the questionnaires was completed. I thanked the patient for participating in our research study. Pam Miller Research Parks Worker Department of OUTCOMES RESEARCH Anesthesiology [place] documented in this encounterUniversity Hospitals Lake West Medical Center06-02-2023 History of Present illness Narrative* Theron Harris MD - 12/15/2022 10:57 AM EDT GENERAL SURGERY POSTOPERATIVE EXAMINATION SERVICE DATE: 12/15/2022 Reason for Consult: 1 year follow-up SUBJECTIVE 61F PMH UC (on entyvio) s/p total proctocolectomy with J-pouch and DLI creation (1994), incisional hernia repair (1996), DLI takedown (1994), mixed-type IPMN s/p lap converted to open distal pancreatectomy and splenectomy, cholecystectomy, repair of recurrent incisional hernia with vicryl mesh 022. Over the past year, she's been struggling with hyperglycemia since surgery. She is on insulin and metformin. Last A1c 6.1% in 11/2022, 5.8% pre-op. She's lost ~20 lbs over the past year with dieting.Her bowel movements are her baseline looseness from her J pouch, this did not worsen after surgery. She was admitted for cellulitis 10/2022. Most recent pouchoscopy 03/2022 with healthy appearing mucosa. She is tolerating her entyvio infusions well. Denies any symptoms or known episodes of pancreatitis. She is concerned about her incisional hernia, but denies any obstructive symptoms. PAST MEDICAL HISTORY: PAST MEDICAL HISTORY Diagnosis Date Arthritis Chronic pain of left knee 12/09/2021 Diabetes mellitus (HCC) History of transfusion HTN (hypertension) Hypothyroidism Lichen sclerosus Rheumatoid arthritis (HCC) UC (ulcerative colitis) (HCC) PAST SURGICAL HISTORY: PAST SURGICAL HISTORY Procedure Laterality Date ABDOMINAL SURGERY HX CHG DELIVERY PAST SURGICAL HISTORY OF 1995 2 stage j-pouch PAST SURGICAL HISTORY OF abdominal hernia x2 PICC LINE INSERT/CONSULT 12/23/2021 FAMILY HISTORY: FAMILY HISTORY Problem Relation Age of Onset Anesthesia Problems No Family History SOCIAL HISTORY: Social History Tobacco Use Smoking status: Never Smokeless tobacco: Never Vaping Use Vaping Use: Never used Substance Use Topics Alcohol use: Yes Comment: ocassionally Drug use: Never OBJECTIVE PHYSICAL EXAM: There is no height or weight on file to calculate BMI. General: Alert, no acute distress, cooperative. HEENT: Normocephalic, atraumatic. Cardiovascular: Warm and well perfused. Pulmonary: Normal work of breathing on room air. Abdomen: Soft, non-distended, non-tender, no guarding, large incisional hernia Extremities: Non-edematous, grossly normal ROM Skin: Warm, dry Neuro: Answering questions appropriately. DATA: Diagnostic tests reviewed for today's visit: Most recent labs and imaging results. Labs: CBC, BMP, MG, PHOS Recent Labs 02/02/22 1438 12/26/21 0341 12/25/21 0534 12/24/21 0429 12/23/21 2054 12/23/21 0637 12/22/21 0350 12/21/21 0522 12/19/21 1451 12/09/21 1237 08/30/21 1107 WBC 10.32 -- -- -- 14.38* -- -- -- -- 7.58 6.28 HB 11.3* 9.0* 14.3 8.5* 8.7* -- < > 8.5* < > 11.6 12.9 HCT 35.6* 27.8* 43.8 -- 26.4* -- -- -- < > 36.1 40.2 PLT 816* -- -- -- 390 -- -- -- -- 248 264 NA 134* 131* 133* -- -- 135* -- 134* < > 131* 133* K 3.6* 4.1 3.8 -- 3.3* 3.2* -- 3.9 < > 3.4* 3.5* CHLOR 94* 95* 97 -- -- 97 -- 99 < > 93* 93* CO2 27 24 27 -- -- 26 -- 25 < > 25 25 BUN 8 4* 3* -- -- 7 -- 13 < > 11 10 CREAT 0.81 0.67 0.64 -- -- 0.55* -- 0.69 < > 0.75 0.75 GLUC 144* 91 101* -- -- 74 -- 123* < > 92 96 CA 9.6 9.1 8.9 -- -- 8.5 -- 8.8 < > 9.6 9.8 MG -- 1.8 1.4* -- -- 1.5* -- 1.8 < > -- -- P -- 3.9 3.1 -- -- 2.9 -- 2.2* < > -- -- < > = values in this interval not displayed. Liver Function, Amylase, & Lipase Recent Labs 02/02/22 1438 12/21/21 0522 12/20/21 0217 12/19/21 2249 12/19/21 0842 10/14/20 1531 09/18/20 2047 09/18/20 1957 09/18/20 1855 TPROT 6.7 5.6* 5.9* 5.9* -- < > -- -- 7.3 ALB 4.0 3.1* 3.4* 3.5* -- < > -- -- 4.1 ALT 23 49* 84* 92* -- < > -- -- 13 AST 32 29 70* 102* -- < > -- -- 16 ALKPHOS 60 53 50 49 -- < > -- -- 76 TBILI 0.2 0.3 0.4 0.4 -- < > -- -- 0.4 LACT -- -- -- -- 0.9 -- 1.8 1.5 Duplicate request < > = values in this interval not displayed. Coags Recent Labs 09/18/20 1855 APTT 28.6 INR 1.1 12/12/2022 MRI PANCREAS IMPRESSION: Postoperative changes distal pancreatectomy with mildly increased size of 1.3 cm cystic lesion in the uncinate process, likely sidebranch IPMN. Decreased postoperative fluid collection and fat necrosis. Hepatic steatosis. Pancreas: Interval postoperative changes distal pancreatectomy. Multiple pancreatic cystic lesions,the largest is a 1.1 x 1.3 cm lesion in the uncinate process (4:21), previously 0.9 x 0.7 cm. Othersmaller pancreatic cystic lesions measuring up to 0.3 cm, stable. Decreased size of 1.5 cm T2 fluidcollection at the surgical cut surface (4:29), previously 3.[address] 01/02/2022. No main duct dilation. No enhancing nodule. 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 She is doing well over the past year, but her main concern is her incisional hernia. She has no exocrine insufficiency, her diabetes is well controlled. On exam her hernia is large, without concerns for obstruction. She should continue follow-up for her side-branch IPMN. - Follow-up 1 year for side-branch IPMN with repeat imaging - Referral to hernia clinic for possible hernia repair - Continue follow-up with PCP or endocrinology if needed for optimization of her diabetes [facility] STAFF PHYSICIAN NOTE OF PERSONAL INVOLVEMENT IN CARE I have reviewed the progress note obtained and documented by the resident and I personally participated in the chu components. I have discussed the case and management of the patient's care. The following comments revise or confirm relevant chu components of the note. IMPRESSION: This is a 62 year old 1 year s/p distal pancreatectomy/splenectomy/ventral hernia repair with vicryl mesh. 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 No signs or symptoms of exocrine pancreatic insufficiency. PLAN: MRI in 1 year for surveillance of pancreatic remnant Refer to hernia surgeons regarding discussion of abdominal wall reconstruction Medical Decision Making: Problems: Moderate: 2+ stable chronic illnesses Data: Unique test result(s) reviewed: 1 Unique test(s) ordered: 1 Risk: Moderate: Moderate risk from testing/treatment Medical Decision Making Level: 4 - Moderate Theron Harris MD documented in this encounterUniversity Hospitals Lake [facility] Center05-30-2023 History of Present illness Narrative* Vicky Mcadams RN - 12/12/2022 9:20 AM EDT Radiology Service Progress Note DATE OF SERVICE: December 12, 2022 TIME: 9:59 AM PATIENT WEIGHT: 208LBS PATIENT IDENTITY VERIFICATION COMPLETED USING TWO (2) STANDARD IDENTIFIERS: Name and Date of confirmed by patient verbally and Name and Date of confirmed by identification band. FALL SCREENING: Has the patient had 2 falls in the last year or 1 fall with injury or currently using an Ambulatory Assistive Device (Walker, Cane, Wheelchair, Crutches, etc.)? Yes, Patient High Riskfor Falls What interventions were put in place to prevent falls during this visit? [place] Risk Wristband Applied PATIENT GENDER DATA: Female. status: : No status: NO. ALLERGIES: Reviewed and unchanged CONTRAST ALLERGY: No EXAM: MRI - CONTRAST TYPE: GROUP II IV SITE: Ambulatory: A peripheral IV was started in the Left forearm with a Angio cath: 22 gauge. IV SITE APPEARANCE: Clean,Dry and Intact SIGNATURE: Vicky Mcadams RN PATIENT NAME: Laura Stephenson DATE: December 12, 2022 TIME: 9:59 AM * RT Isatu(R) - 12/12/2022 9:20 AM EDT Radiology Service Progress Note PATIENT NAME: Laura Stephenson DATE OF SERVICE: December 12, 2022 TIME: 11:02 AM PATIENT IDENTITY VERIFICATION COMPLETED USING TWO (2) IDENTIFIERS: Name and Date of confirmedby patient verbally and Name and Date of confirmed by identification band. FALL SCREENING: Has the patient had 2 falls in the last year or 1 fall with injury or currently using an Ambulatory Assistive Device (Walker, Cane, Wheelchair, Crutches, etc.)? Yes, Patient High Riskfor Falls What interventions were put in place to prevent falls during this visit? [place] Risk Wristband Applied, Instructed Patient to Call for Help if Needed, Offered Assistance with Transfers/Clothing, Instructed Patient to Remain Seated (Not on Exam Table) Until Exam, and Increased Observations by Caregivers PATIENT GENDER DATA: Female. status: : No status: NO. PATIENT RELEVANT IMPLANT DATA REVIEWED: Yes RADIOLOGY DEPARTMENT: MR; Exam(s) Completed: Body: Pancreas/Biliary PERIPHERAL IV DATA: Site assessment: Clean,Dry and Intact, Site disposition Discontinued SIGNED BY: RT Isatu(Zofia) December 12, 2022 11:02 AM documented in this encounterUniversity Hospitals Lake West Medical Center04-19-2023 Miscellaneous Notes* Telephone Encounter - Janell Gallo RN - 11/01/2022 2:42 PM EDT Images from the original note were not included. Refill Request (Newest Message First) Ashu Mittal MD You Yesterday (9:13 AM) Patient can reach out to PCP for Vitamin D refills following a repeat evaluation. Contacted pt and notified of the above. Understanding verbalized. Janell Gallo RN November 01, 2022 2:43 PM documented in this encounterUniversity Hospitals Lake West Medical Center02-01-2023 Miscellaneous Notes* Telephone Encounter - Janell Gallo RN - 08/16/2022 12:12 PM EST Contacted patient for an update. Patient reports she is doing a lot better .Stool frequency has decreased. Denies nausea or vomiting. She has resumed her regular diet, with no GI concerns at this time. Patient will continue to monitor symptoms and will contact the office with any changes. Forwarding update to Tomasa Brito NP. Janell Gallo RN August 16, 2022 12:14 PM documented in this encounterUniversity Hospitals Lake West Medical Center01-31-2023 Miscellaneous Notes* Telephone Encounter - Janell Gallo RN - 08/15/2022 11:38 AM EST Fax request received from [employer] to send updated clinicals and labs for reauthorization for Entyvio. Documentation faxed to [employer] at [phone]. Ext:[phone] for questions. Janell Gallo RN August 15, 2022 11:41 AM documented in this encounterUniversity Hospitals Lake West Medical Center01-31-2023 Miscellaneous Notes* Telephone Encounter - HUGH Park - 08/15/2022 10:13 AM EST Pt called to make her yearly appt for December. Please call pt at [phone]. documented in this encounterUniversity Hospitals Lake West Medical Center01-24-2023 History of Present illness Narrative* Tomasa Wakefield APRN.SEED SERVICE ADVISOR - 08/08/2022 1:30 PM EST VIRTUAL VISIT FOLLOW UP Laura Blake Stephenson [id number] has requested a video telemedicine follow-up visit. Laura Stephenson verbalized informed consent to proceed with the video telemedicine follow-up visit. Laura Stephenson was informed that the details of this video visit would be recorded as part of their electronic medical record. Patient location at time of call: Home Additional encounter participants and relationship: None No chief complaint on file. I had a virtual visit with Ms. Stephenson today for follow up of ulcerative colitis s/p IPAA. Last seen 02/02/[address] Mittal. UPDATED HISTORY: -Symptoms started last week with fatigue decreased appetite and diarrhea; Covid + with dehydration,+ norovirus, corrected K and Na in the ED -Drinking lots of Gatorade - C. Diff negative -Feeling scared and nervous due to episode -Stool is more liquid than usually and smells but her frequency is back to baseline -Entyvio Q4 weeks ND 08/26 -Was not taking Lomotil last week but she has resumed Pouch History Template Pouch History Disease Type: Ulcerative Colitis Medications PRIOR to Pouch Surgery: Corticosteroids and 5-ASA Date of Pouch Creation (Mo/Year): 1994 Pouch Indication: Medically refractory disease Type of Pouch: J pouch (IPAA) Number of Pouch Operative Stages: 2 (proctocolectomy + pouch creation + diverting ileostomy, subsequent ileostomy takedown) Pouch Complications: Crohn's-like disease of Pouch Medications Received AFTER Pouch Surgery: Antibiotics and Vedolizumab Date of Last Pouchoscopy (Mo/Year): 08/30/2020 Impression: - Fair preparation of the pouch - Improved overall inflammation of the pouch on vedolizumab, characterized by ulcerations, mucosal changes, and pseudopolyps (predominant at the pouch inlet) - Narrowing/stenosis at the pouch inlet dilated - Pre-pouch inflammation characterized by ulceration, mucosal changes, improved - Pre-pouch >5cm from the pouch inlet, normal appearing. Current Pouch Symptoms Average number of bowel movements in 24 hour period: 6-8 Stool Frequency: Usual stool frequency since pouch surgery Rectal Bleeding: None or rare Fecal Urgency: None Abdominal Cramps: None Fever (>100 F) in last 24 hours: No Number of nocturnal bowel movements: No Incontinence or Fecal Accidents in last week: None EIMs - lichen planus, mouth and vaginal sores NSAIDs (Advil) -> recommend Tylenol Denies smoking PAST MEDICAL HISTORY Diagnosis Date Arthritis Chronic pain of left knee 12/09/2021 Diabetes mellitus (HCC) History of transfusion HTN (hypertension) Hypothyroidism Lichen sclerosus Rheumatoid arthritis (HCC) UC (ulcerative colitis) (HCC) PAST SURGICAL HISTORY Procedure Laterality Date ABDOMINAL SURGERY HX CHG DELIVERY PAST SURGICAL HISTORY OF 1994 2 stage j-pouch PAST SURGICAL HISTORY OF abdominal hernia x2 PICC LINE INSERT/CONSULT 12/23/2021 FAMILY HISTORY Problem Relation Age of Onset Anesthesia Problems No Family History Social History Tobacco Use Smoking status: Never Smokeless tobacco: Never Vaping Use Vaping Use: Never used Substance Use Topics Alcohol use: Yes Comment: ocassionally Drug use: Never Current Outpatient Medications Medication Sig Dispense Refill diphenoxylate-atropine (LOMOTIL) 2.5-0.025 mg per tablet Take 1 tablet by mouth before meals and atbedtime for 90 days. 120 tablet 2 ergocalciferol 50,000 unit capsule (VITAMIN D2, DRISDOL) TAKE 1 CAPSULE BY MOUTH ONE TIME PER WEEK 12 capsule 1 aspirin (ASPIR-81 ORAL) Take by mouth once daily. insulin aspart U-100 (NOVOLOG FLEXPEN U-100 INSULIN) 100 unit/mL (3 mL) Inject subcutaneously. 2 UNITS IF GLUCOSE IS HIGH magnesium hydroxide (MOM) 400 mg/5 mL suspension 30 mL by NASOGASTRIC route once daily as needed for constipation. 210 mL 0 insulin lispro (HUMALOG KWIKPEN INSULIN) 100 unit/mL Inject 0-10 units three times daily following the sliding scale: If Blood Glucose (mg/dL) is <110 Give 0 units 111-150 Give 0 units 151-200 Give 2 unit 201-250 Give 4 units 251-300 Give 6 units 301-350 Give 8 units 351-400 Give 10 units >400 give 10units and notify provider. 5 Pen 2 Insulin [place], Disposable, (BD ULTRA-FINE MIN PEN NEEDLE) 32 gauge x 5/32 1 Each three times daily. 100 Each 2 blood sugar diagnostic (ONETOUCH VERIO TEST STRIPS) test strip Use as instructed three times daily 100 Strip 2 lancets (ONETOUCH DELICA PLUS LANCET) 33 gauge 1 Each three times daily. 100 Each 2 potassium chloride (K-TAB) 10 mEq tablet Take 10 mEq by mouth once daily. Mesalamine (LIALDA) 1.2 gram EC tablet Mesalamine Active PO September 18, 2020 11:14am vedolizumab (ENTYVIO) 300 mg injection Infuse 300 mg every 4 weeks. 1 Each 5 Lactobacillus acidophilus (PROBIOTIC ORAL) Take by mouth. levothyroxine (SYNTHROID) 150 mcg tablet Take 1 tablet by mouth once daily. 30 tablet 0 Omeprazole 40 mg capsule Take 40 mg by mouth once daily. hydroCHLOROthiazide (HYDRODIURIL, ESIDRIX) 25 mg tablet Take 25 mg by mouth once daily. FLUoxetine (PROZAC) 20 mg capsule Take 20 mg by mouth once daily. apremilast (OTEZLA) 30 mg tablet Take 30 mg by mouth as needed. atenolol 25 mg tablet Take 25 mg by mouth once daily. No current facility-administered medications for this visit. ALLERGIES Allergen Reactions Azithromycin Unknown Metronidazole Itching Itching and redness Naproxen Penicillins Sulfa (Sulfonamide * Unknown Vancomycin Rash Zpack [Other] PHYSICAL FINDINGS OF NOTE: General: alert and appropriate, in no distress and well-hydrated, well nourished , Psych: Appropriate mood and interaction Skin: no rash noted, Respiratory: breathing non-labored, and no grunting/flaring/retractions, Chest: equal chest rise with normal respiratory effort, Neuro: Patient seen sitting with normal appearing strength and coordination REVIEWED ITEMS CBC: WBC (k/uL) Date Value 02/02/2022 10.32 Hematocrit (%) Date Value 02/02/2022 35.6 (L) MCV (fL) Date Value 02/02/2022 88.3 Platelet Count (k/uL) Date Value 02/02/2022 816 (H) Lymph% (%) Date Value 02/02/2022 27.6 Hepatic Function Panel: Albumin (g/dL) Date Value 02/02/2022 4.0 Bilirubin, Total (mg/dL) Date Value 02/02/2022 0.2 Alkaline Phosphatase (U/L) Date Value 02/02/2022 60 AST (U/L) Date Value 02/02/2022 32 ALT (U/L) Date Value 02/02/2022 23 Protein, Total (g/dL) Date Value 02/02/2022 6.7 Assessment IMPRESSION (portions of this note have been copied from Dr. Mittal's prior note and updated to reflect medical decision making today) 62 y/o woman with a medical history of ulcerative colitis s/p IPAA creation in 1994 (2 stage). History of pSBO showing a pouch inlet stricture along with post- stenotic dilation on CT, pouchoscopy revealing of pre-pouch, pouch inlet, and pouch inflammation, which has responded clinically to ciprofloxacin symptomatically, repeat pouchoscopy showed ongoing active inflammation of the pouch, pre-pouch(immediate), despite course of budesonide, now on vedolizumab every 4 weeks with clinical improvement of pouch inflammation. Recent surgery for IPMN, with a distal pancreatectomy and splenectomy. Reports that since escalation of Entyvio therapy her symptoms have improved significantly in terms of frequency, cramping, urgency and incontinence. She did have an episode last week of diarrhea for which she was found to be positive for norovirus and COVID. She had a critical sodium of 122 which required correction in the ED. Reports that she is improving but her stool is still less formed than usual. Fecal calprotectin was unable to be collected with other stool studies so will have her do this today. Physician Global Assessment of Disease Activity: mild disease PLAN -Proceed with [facility] [place] [facility] -We will proceed with course of Cipro if calpro is elevated -Recommend ORS such as Liquid IV, Drip Drop -BRAT diet -Follow up [address] Mittal or sooner if needed I spent 22 minutes in the virtual visit, with more than 50% of the total [id number] time of the visit in counseling / coordination of care. I have confirmed and edited as necessary, the PFSH and ROS obtained by others.I will communicate myrecommendations and prescriptions to the patient's primary care provider. Unrelated to E/M, telemedicine, or virtual visit service provided within previous 7 days. No E/M service or procedure anticipated within next 24 hours. Tomasa Wakefield APRN.SAIRA August 08, 2022 1:30 PM documented in this encounterUniversity Hospitals Lake West Medical Center01-23-2023 Miscellaneous Notes* Telephone Encounter - Janell Gallo RN - 08/07/2022 3:42 PM EST Pt returned the call.Assisted pt in scheduling a virtual visit with DIVYA Randolph tomorrow at 1:30 pm. Janell Gallo RN August 07, 2022 3:43 PM * Telephone Encounter - Janell Gallo RN - 08/07/2022 9:39 AM EST Attempted to reach pt to see if she went to the ED as advised by DIVYA Randolph on 08/04/2022. No answer. Contacted [facility] lab to check the status of stool studies, they are still pending. C. Diff hasbeen resulted, and per technician telecommunication systems, C. Diff negative. Result to be faxed to the office today. Forwarding to Dr. Mittal to advise. Janell Gallo RN August 07, 2022 10:10 AM documented in this encounterUniversity Hospitals Lake West Medical Center01-20-2023 Miscellaneous Notes* Telephone Encounter - Janell Gallo RN - 08/04/2022 1:54 PM EST Images from the original note were not included. Sanford Yates MD You; Tomasa Wakefield APRN.SEED SERVICE ADVISOR 30 minutes ago (1:22 PM) HAYDEE Elizalde, Allan for reaching out. I just spoke to Gail about the case. Given this appears to be an acute drop of Na level (most recent one prior to that was 134), she should go to the ER for a recheck of Na level to make sure it is not <120 (in which case she would require hospitalization) and to assess fluid status. Given her pouchitis could be due to dehydration. Jose Wakefield APRN.SEED SERVICE ADVISOR routed conversation to Sanford Yates MD 33 minutes ago (1:20 PM) Tomasa Wakefield APRN.SEED SERVICE ADVISOR You 33 minutes ago (1:20 PM) JA Called patient and advised for her to present to nearest ED. * Telephone Encounter - Janell Gallo RN - 08/04/2022 12:57 PM EST Karla with [facility] lab calling with a critical lab result, Sodium of 122. Housing Quality Standard Inspector to fax result to the office. Fax number provided. Forwarding to ordering provider, Tomasa Brito NP. As well as Dr. Mittal's covering provider, Dr. Payan. Janell Gallo RN August 04, 2022 1:00 PM documented in this encounterUniversity Hospitals Lake West Medical Center01-20-2023 Miscellaneous Notes* Telephone Encounter - Janell Gallo RN - 08/04/2022 10:03 AM EST Spoke with pt this morning. She requested lab orders be faxed to [facility] at [phone]. Orders faxed. Janell Gallo RN August 04, 2022 10:03 AM * Telephone Encounter - Tomasa Wakefield APRN.SAIRA - 08/03/2022 5:17 PM EST Labs ordered. * Telephone Encounter - Janell Gallo RN - 08/03/2022 5:11 PM EST Attempted to reach pt to notify that FERRY CAPTAIN will get labs and then prescribe medication as indicated. No answer. Left message advising of the above and if symptoms worsens she should be evaluated in the ED. Jnaell Gallo RN August 03, 2022 5:15 PM * Telephone Encounter - Janell Gallo RN - 08/03/2022 1:03 PM EST Pt returned the call. She reports having 8-10 watery bowel movement per day with a foul odor, no blood, or mucous. Pt also reports feeling a little weak and tired . Symptoms started around last or Sunday. Denies fever, chills, or abdominal pain. Pt reports she is unable to navigate virtual visits and is not able to drive up at this time. Pt believes she is having a pouchitis flare and is asking if something can be prescribed. She is ya to go to her local lab if necessary. Forwarding request to covering provider, Dr. Payan to advise. Janell Gallo RN August 03, 2022 1:21 PM * Telephone Encounter - Janell Gallo RN - 08/03/2022 11:20 AM EST Attempted to contact pt. No answer. Left message for pt to call the office. Janell Gallo RN August 03, 2022 11:21 AM * Telephone Encounter - Shine Wilson Ma - 08/03/2022 8:53 AM EST Patient Laura Stephenson called and stated that she's having a Pouchitis Flare, complains of loose watery stools, weakness, Sugar is running High. Patient did not want to schedule a virtual visit. Patientwould like a call back at [phone] Shine Wilson Ma documented in this encounterUniversity Hospitals Lake West Medical Center01-19-2023 Evaluation note* Encounter Date Diagnosis Assessment Notes Treatment Notes Treatment Clinical Notes Jul, Essential (primary) hypertension (ICD-10 - I10) [employer] Other 11-29-2022 Miscellaneous Notes* Telephone Encounter - Gopal Judge - 06/13/2022 1:28 PM EST I called the patient today regarding follow-up for the study IRB# [id number]: Tight perioperative bloodpressure management to reduce serious cardiovascular, renal, and cognitive complications: The GUARDIAN trial. The PI of the study is Theron Baker MD. The patient DID NOT mention experiencing an AE/RONAL. The 6-month follow up with the questionnaires was completed. I thanked the patient for participating in our research study. Tracy Avalos Research Parks Worker Department of OUTCOMES RESEARCH Anesthesiology [place] documented in this encounterUniversity Hospitals Lake West Medical Center11-15-2022 Evaluation note* Encounter Date Diagnosis Assessment Notes Treatment Notes Treatment Clinical Notes May, Essential (primary) hypertension (ICD-10 - I10) No changes, we will continue to monitor. May,cquired hypothyroidism (ICD-10 - E03.9)We will call after labs completed May,Vitamin D deficiency (ICD-10 - E55.9) [employer] Other 11-10-2022 Evaluation note* Encounter Date Diagnosis Assessment Notes Treatment Notes Treatment Clinical Notes May, Dietary counseling and surveilla nce (ICD-10 - Z71.3) see above May,2Diabetes mellitus due to underlying condition without complications (ICD-10 - E08.9) 1. Controlled, a Type 2 diabetes with A1c of 6.4% 2. Blood glucose levels stable. Pt reports couldn't afford christopher cgm. Continue checking glucose ac, hs and using Novolog corrective scale. 03/06 c-peptide 3.5. 3. Patient is alert, oriented and receptive to making changes or counseling. Notes: Seen for an assessment of current glucose pattern, changes in treatment plan, counseling and coordination of care related to diabetes, risks, and benefits of treatment, medications, side effects. Given handouts to reinforce concepts reviewed during counseling, see scanned notes. TOPICS REVIEWED: 1. Time was spent reviewing: a. Basic concepts of diabetes, progressive beta cell , concepts of basal/adriel us/corrective insulin requirements. Basal: The goal is fasting blood glucose of 90-130mg. IF fasting blood glucose starts to run under 100mg 3x's/ week, decrease dose by 10%. Bolus: The goal is to hold the blood glucose level steady meal to meal. If pt. is going to have increased physical activity after a meal, decrease the schedule meal dose prior to the activity by 30-50%. If pt. skips a meal do not take this dose. Correction: The goal is to correct an elevated glucose back into the 100-150mg range b. Nutrition: Concepts of healthy diet, encouraged to decrease saturated fat in diet and increase non-starchy vegetables and fruits in diet. BMI: Pt. needs to select one small change to decrease caloric intake or increase physical activity to help decrease weight. c. Correct treatment of hypoglycemia, carry a glucose source at all times on your person, in vehicles, and at bedside. Can use glucose tablets/4, four ounces of pop or juice equal to 15 G of carbohydrate. Blood glucose should be 100 mg/dl or higher when driving. d. ADA glucose goals for age and medical complexity reviewed e. Patientquestions addressed 2. Activity/exercise: Encouraged to start any form of physical activity. Start low level and increase slowly to a minimal goal of 150 minutes/week. Limit activity to what is allowed by other issues such as cardiac, pulmonary or orthopedic restrictions. 3. Standards of care: Reminded to have an annual dilated eye exam, A1C every 3 months, urine testing for microalbumin once/year, check feet daily and report any cuts or sores that do not appear to be healing. 4. Meter: Plan to check blood glucose: Please check blood glucose levels 4 times/day. Back to back meals reveal effectiveness of bolus dosing. The blood glucose data is used to determine insulin doses and confirm symptoms for hypoglycemia and hyperglcyemia.5. [facility] Contact office if any issues or concerns with patterns of hypoglycemia, hyperglycemia, or diabetes medicationissues. 6. Prescriptions: Will call when needed. 7. Prescriptions will not be filled unless you are compliant with follow up appointments or have a follow up appointment scheduled as ordered by your provider. Refills should be requested at the timeof your visit. May,Hyperlipidemia (ICD-10 - E78.5) 03/06 ldl 112- f/u with pcp for further recommendation May,HTN (hypertension) (ICD-10 - I10) on antihypertensives May,Long term current use of insulin (ICD-10 - Z79.4) May,History of pancreatectomy (ICD-10 - Z90.410) May,MI 35.0-35.9,adult (ICD-10 - Z68.35) 8 pound weight loss from last visit, continue with weight loss efforts [employer] Other 10-31-2022 Miscellaneous Notes* Telephone Encounter - Janell Gallo RN - 05/15/2022 4:29 PM EDT Refill request received. Requested Prescriptions Pending Prescriptions Disp Refills ergocalciferol 50,000 unit capsule (VITAMIN D2, DRISDOL) [Pharmacy Med Name: VITAMIN D2 1.25MG(50,000 UNIT)] 12 capsule 1 Sig: TAKE 1 CAPSULE BY MOUTH ONE TIME PER WEEK Last visit:02/02/2022 PLAN -We will obtain blood work and stool testing -We will schedule a pouchoscopy for late summer -Will return after her pouchscoopy -She will continue the vedolizumab at every 4 weeks, last dose - was three weeks prior -Will plan to follow up after procedure Last Vitamin D level:10/14/2020 Component Latest Ref Rng & Units 10/14/2020 Vitamin D 25 Hydroxy 31.0 - 80.0 ng/mL 4.7 (L) Forwarding request to Dr. Mittal. Janell Gallo RN May 15, 2022 4:32 PM documented in this encounterUniversity Hospitals Lake West Medical Center09-22-2022 Miscellaneous Notes* Telephone Encounter - Torrie Perez RN - 04/06/2022 10:59 AM EDT GI Pre-Procedure Spoke with patient: Yes Confirmed date scheduled and patient report time: Yes Procedure Planned:pouchoscopy with or without biopsies based on clinical findings Is the patient on blood thinners?no Procedure Instructions given to patient: Yes, and they verbalized their understanding of instructions given Patient instructed to take prescribed preparation prior to procedure:Yes, and they verbalized theirunderstanding of instructions given Patient instructed to have family/friend present for procedure transport home:Patient/patient parts representative was told that if they do not have a responsible adult accompany them to their procedure; and remain in the endoscopy area until they are discharged; that their procedure cannot be done with s edation or anesthesia and may be cancelled. Any barriers to Patient learning: Patient/Patient Bell Valet responded appropriately on phone. Type of instruction given: Verbal by telephone contact. Torrie Perez RN documented in this encounterUniversity Hospitals Lake West Medical Center08-16-2022 Miscellaneous Notes* Telephone Encounter - Janell Gallo RN - 02/28/2022 11:33 AM EDT Images from the original note were not included. Ashu Mittal MD You 56 minutes ago (10:33 AM) Janell, Nothing at the moment. She can take Bentyl for cramping, but If you could call her and let her knowif the frequency increases over the week, we can trial a course of antibiotics Thanks Babar Contacted pt and notified of the above. Understanding verbalized. Janell Gallo RN February 28, 2022 11:33 AM * Telephone Encounter - Janell Gallo RN - 02/28/2022 9:02 AM EDT Contacted pt regarding message below. Patient reports she was not sure if symptoms she were having were related to a stomach virus she may have picked up from her or a pouchitis flare. She reports she is feeling better today. Patient complains of having abdominal cramping, stool urgency, and 10+ episodes of diarrhea on yesterday. Today abdominal cramping and stool urgency has resolved. Stool frequency is normal today.Stoolsare still liquid. Denies blood or mucous in the stool. Denies fever, chills, nausea, or vomiting. Encouraged pt to follow a bland diet and increased hydration until symptoms are better.Notified pt that a message will be sent to Dr. Mittal for further recommendation. Advised her to continue to monitorsymptoms for now and to contact the office if symptoms return. Janell Gallo RN February 28, 2022 9:44 AM * Telephone Encounter - Shine Wilson Ma - 02/27/2022 4:37 PM EDT Patient Laura Stephenson called and complains of abdominal cramping and diarrhea for 2 days. was sick with stomach virus and she feels that she may have it now as well or Pouchitis Flare. Patient would like a call back at [phone] Shine Wilson Ma documented in this encounterChris [place]ille [address]-01-2022 Evaluation note* Encounter Date Diagnosis Assessment Notes Treatment Notes Treatment Clinical Notes Feb, Dietary counseling and surveilla nce (ICD-10 - Z71.3) see above Feb,2Diabetes mellitus due to underlying condition without complications (ICD-10 - E08.9) 1. Controlled, a Type 2 diabetes with A1c of 6.3% 2. Blood glucose levels avergage glucose 137. Reports infrequently using corrective scale maybe 1-2 times/week. Will check c-peptide. Reviewed with pt if fasting am glucose >130 will consider adding basal insulin. Discussed with pt christopher 2 cgm- she does not have a compatible phone. She is asking for order be sent to [facility]. Reviewed with pt will need to set up apt with perinatal educator once recieves christopher 2 cgm reader/sensor for instruction on use/application. Pt verbalizes understanding. 3. Patient is alert, oriented and receptive to making changes or counseling. Notes: Seen for an assessment of current glucose pattern, changes in treatment plan, counseling and coordination of care related to diabetes, risks, and benefits of treatment, medications, side effects. Given handouts to reinforce concepts reviewed during counseling, see scanned notes. TOPICS REVIEWED: 1. Time was spent reviewing: a. Basic concepts of diabetes, progressive beta cell , concepts of basal/bolus/corrective insulin requirements. Basal: The goal is fasting blood glucose of 90-130mg. IF fasting blood glucose starts to run under 100mg 3x's/ week, decrease dose by 10%. Bolus: The goal is to hold the blood glucose level steady meal to meal. If pt. is going to have increased physical activity after a meal, decrease the schedule meal dose prior to the activity by 30-50%. If pt. skips a meal do not take this dose. Correction: The goal is to correct an elevated glucose back into the 100-150mg range b. Nutrition: Concepts of healthy diet, encouraged to decrease saturated fat in diet and increase non-starchy vegetables and fruits in diet. BMI: Pt. needs to select one small change to decrease caloric intake or increase physical activity to help decrease weight. c. Correct treatment of hypoglycemia, carry a glucose source at all times on your person, in vehicles, and at bedside. Can use glucose tablets/4, four ounces of pop or juice equal to 15 G of carbohydrate. Blood glucose should be 100 mg/dl or higher when driving. d. ADA glucose goals for age and medical complexity reviewed e. Patientquestions addressed 2. Activity/exercise: Encouraged to start any form of physical activity. Start low level and increase slowly to a minimal goal of 150 minutes/week. Limit activity to what is allowed by other issues such as cardiac, pulmonary or orthopedic restrictions. 3. Standards of care: Reminded to have an annual dilated eye exam, A1C every 3 months, urine testing for microalbumin once/year, check feet daily and report any cuts or sores that do not appear to be healing. 4. Meter: Plan to check blood glucose: Please check blood glucose levels 4 times/day. Back to back meals reveal effectiveness of bolus dosing. The blood glucose data is used to determine insulin doses and confirm symptoms for hypoglycemia and hyperglcyemia.5. [facility]. Contact office if any issues or concerns with patterns of hypoglycemia, hyperglycemia, or diabetes medicationissues. 6. Prescriptions: Sent christopher 2 cgm to [facility] Feb,Hyperlipidemia (ICD-10 - E78.5) Feb,HTN (hypertension) (ICD-10 - I10) on antihypertensives Feb,Long term current use of insulin (ICD-10 - Z79.4) Feb,MI 36.0-36.9,adult (ICD-10 - Z68.36) Feb,History of pancreatectomy (ICD-10 - Z90.410) Pt would greatly benefit from terminal makeup operator personal use of CGM device such as a [employer] Christopher 2 withability for high/low alarm feature. Pt. currently using insulin injections >3 times/day with insulin to carb ratio/corrective factor and requires frequent self adjustment of insulin based on carbohydrate intake, physical activity blood glucose monitoring. A CGM would improve ease of access to glucose results and reduce risk of hypoglcyemia/hyperglycemia. [employer] Other 07-26-2022 Miscellaneous Notes* Telephone Encounter - Janell Gallo RN - 02/07/2022 10:42 AM EDT Pt contacted the office back regarding Hematology referral. Pt reports her PCP would like for her to see a Clothing Designer at the [facility]. Will forward message to Dr. Mittal to place heme referral. Janell Gallo RN February 07, 2022 10:44 AM * Telephone Encounter - Janell Gallo RN - 02/03/2022 2:52 PM EDT Images from the original note were not included. Can we refer her to the blood doctor (hematology) because of thrombocytosis? Received: Today Ashu Mittal MD sent to Janell Gallo RN Can yo call her and let her know. There are some mild abnormalities in her blood testing, which we will continue to montior. But one her CBC shows very high platelets which needs follow up with a cash register operator Contacted pt and notified of results and need to follow up with a Clothing Designer. Pt reports she will let her PCP know about her platelet count and see if they are able to refer herto a cash register operator locally and will contact the office back on Sunday with an update. Janell Gallo RN February 03, 2022 3:35 PM documented in this encounterUniversity Hospitals Lake West Medical Center07-21-2022 Instructions* Patient Instructions* Ashu Mittal MD - 02/02/2022 1:39 PM EDT INSTRUCTIONS FOR COLONSCOPY PREPARATION - MIRALAX PREP YOU ARE SCHEDULED FOR A COLONOSCOPY AT On: At: AM/PM THE FOLLOWING ITEMS NEED TO BE PURCHASED AT A PHARMACY: 1. 255g BOTTLE OF MIRLAX (PRESCRIPTION NEEDED) 4 DULCOLAX TABLETS (INCLUDED WITH PRESCRIPTION) 2. 64 OZ OF GATORADE OR CYSTAL LIGHT (NO PURPLE OR RED) 3. IF DIABETIC, USE CRYSTAL LIGHT (NO PURPLE OR RED) ONE WEEK PRIOR TO THE PROCEDURE: DO NOT TAKE ASPIRIN OR ASPIRIN PRODUCTS, INCLUDING ADVIL, ALEVE, MOTRIN, ECOTRIN AND EXCEDRIN. YOU MAY TAKE TYLENOL. DO NOT TAKE ANY ARTHRITIS MEDICATIONS SUCH CELEBREX OR BEXTRA YOU SHOULD CHECK WITH YOUR FAMILY DOCTOR IF YOU ARE ON COUMADIN, PLAVIX OR HEPARIN. IF YOU ARE A DIABETIC, YOU MAY NEED TO ADJUST YOUR MEDICATION. CHECK WITH YOUR FAMILY PHYSICIAN. IF YOU ARE ON GLUCAPHAGE, PLEASE STOP THIS 1 DAY PRIOR TO THE PROCEDURE. FIVE DAYS PRIOR TO THE PROCEDURE: DO NOT EAT NUTS, SEEDS, POPCORN OR CORN DO NOT TAKE FIBER SUPPLEMENTS ONE DAY PRIOR TO THE PROCEDURE: 1. CLEAR LIQUID DIET: SOUPS: CLEAR BOUILLON BROTH OR CONSOMME BEVERAGES: COFFEE, TEA (REGULAR OR DECAFFEINATED), BEAU AID, CARBONATED BEVERAGES. DO NOT PUT ANY MILK OR CREAM IN YOUR COFFEE OR TEA. JUICES: STRAINED LEMONADE, LIMEADE, ORANGE DRINK, APPLE JUICE, ANY JUICE YOU CAN SEE THROUGH AND HAS NO PULP IS ACCEPTABLE. DESSERT: WATER ICES, INDONESIAN ICES, POPCICLES, JELLO (NO RED) 2. BETWEEN 5-6 P.M: MIX THE ENTIRE 255G BOTTLE OF MIRALAX WITH GATORADE/CRYSTAL LIGHT (YOU MAY NEED A SEPARATE BOTTLE). DRINK AN 8OZ GLASS EVERY 10-15 MINUTES UNTIL COMPLETED (ABOUT 8 GLASSES). 3. ONE HOUR AFTER THE MIRALAX SOLUTION IS COMPLETED, TAKE 4 DULCOLAX. 4. YOU MAY CONTINUE ON CLEAR LIQUIDS UP TO 6 HOURS PRIOR TO YOUR PROCEDURE. DAY OF PROCEDURE: 1. DO NOT EAT OR DRINK ANYTHING. IF YOU TAKE BLOOD PRESSURE OR HEART MEDICATION IN THE MORNING, PLEASE TAKE THESE NORMALLY WITH A SIP OF WATER. 2. YOU MUST HAVE SOMEONE DRIVE YOU HOME AFTER THE PROCEDURE DUE TO THE SEDATION. 3. IF YOU HAVE ANY QUESTIONS AFTER OUR DISCUSSION IN THE OFFICE AND AFTER READING THE ABOVE INFORMATION, PLEASE CALL THE OFFICE AT [phone] AND WE WILL DISCUSS ANY PROBLEMS NOT COVERED IN THIS INFORMATION. FOR ONE WEEK AFTER THE PROCEDURE: AVOID NUTS, SEEDS AND MEDICATIONS THAT CAUSE BLEEDING. PLEASE CALL THE OFFICE AT [phone] TWO WEEKS AFTER THE PROCEDURE FOR YOUR TEST RESULTS. documented in this encounterUniversity Hospitals Lake West Medical Center07-21-2022 History of Present illness Narrative* Ashu Mittal MD - 02/02/2022 1:30 PM EDT Follow Up Visit SUBJECTIVE 61 year old female with ulcerative colitis s/p IPAA here for follow-up. Last seen 09/23/2021. 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 Patient did well post-op. Pathology FINAL DIAGNOSIS A. Pancreatic neck margin, biopsy: - No significant pathologic abnormality. B. Distal pancreas and spleen, distal pancreatectomy: - Low-grade intraductal papillary mucinous neoplasm, margins negative. - No tumor in fifteen lymph nodes (0/15). - Spleen with no significant pathologic abnormality. C. Gallbladder, cholecystectomy: - Mild chronic cholecystitis with cholesterolosis Pouch History Template Pouch History Disease Type: Ulcerative Colitis Medications PRIOR to Pouch Surgery: Corticosteroids and 5-ASA Date of Pouch Creation (Mo/Year): 1994 Pouch Indication: Medically refractory disease Type of Pouch: J pouch (IPAA) Number of Pouch Operative Stages: 2 (proctocolectomy + pouch creation + diverting ileostomy, subsequent ileostomy takedown) Pouch Complications: Crohn's-like disease of Pouch Medications Received AFTER Pouch Surgery: Antibiotics and Vedolizumab Date of Last Pouchoscopy (Mo/Year): 08/30/2020 Impression: - Fair preparation of the pouch - Improved overall inflammation of the pouch on vedolizumab, characterized by ulcerations, mucosal changes, and pseudopolyps (predominant at the pouch inlet) - Narrowing/stenosis at the pouch inlet dilated - Pre-pouch inflammation characterized by ulceration, mucosal changes, improved - Pre-pouch >5cm from the pouch inlet, normal appearing. Current Pouch Symptoms Average number of bowel movements in 24 hour period: 6 Stool Frequency: Usual stool frequency since pouch surgery Rectal Bleeding: None or rare Fecal Urgency: Occasional Abdominal Cramps: Occasional Fever (>100 F) in last 24 hours: No Number of nocturnal bowel movements: 0 Incontinence or Fecal Accidents in last week: None (once since vedolizumab start) Of note as it relates to her IBD, she suffered a recent fall, onto her right knee which is the areaof her pain and discomfort. Denies any other EIMs, and reports no active symptoms. She fell on hardwood to her knee itself. CBC: WBC (k/uL) Date Value 12/23/2021 14.38 (H) Hematocrit (%) Date Value 12/26/2021 27.8 (L) MCV (fL) Date Value 12/23/2021 86.8 Platelet Count (k/uL) Date Value 12/23/2021 390 Lymph% (%) Date Value 12/23/2021 18.0 Hepatic Function Panel: Albumin (g/dL) Date Value 12/21/2021 3.1 (L) Bilirubin, Total (mg/dL) Date Value 12/21/2021 0.3 Alkaline Phosphatase (U/L) Date Value 12/21/2021 53 AST (U/L) Date Value 12/21/2021 29 ALT (U/L) Date Value 12/21/2021 49 (H) Protein, Total (g/dL) Date Value 12/21/2021 5.6 (L) Patient-Entered Data Current Outpatient Medications Medication Sig Dispense Refill insulin aspart U-100 (NOVOLOG FLEXPEN U-100 INSULIN) 100 unit/mL (3 mL) Inject subcutaneously. 2 UNITS IF GLUCOSE IS HIGH magnesium hydroxide (MOM) 400 mg/5 mL suspension 30 mL by NASOGASTRIC route once daily as needed for constipation. 210 mL 0 insulin lispro (HUMALOG KWIKPEN INSULIN) 100 unit/mL Inject 0-10 units three times daily following the sliding scale: If Blood Glucose (mg/dL) is <110 Give 0 units 111-150 Give 0 units 151-200 Give 2 unit 201-250 Give 4 units 251-300 Give 6 units 301-350 Give 8 units 351-400 Give 10 units >400 give 10units and notify provider. (Patient not taking: Reported on 01/10/2022 ) 5 Pen 2 Insulin [place], Disposable, (BD ULTRA-FINE MIN PEN NEEDLE) 32 gauge x 5/32 1 Each three times daily. 100 Each 2 blood sugar diagnostic (ONETOUCH VERIO TEST STRIPS) test strip Use as instructed three times daily 100 Strip 2 lancets (ONETOUCH DELICA PLUS LANCET) 33 gauge 1 Each three times daily. 100 Each 2 potassium chloride (K-TAB) 10 mEq tablet Take 10 mEq by mouth once daily. ergocalciferol 50,000 unit capsule (VITAMIN D2DRISDOL) TAKE 1 CAPSULE BY MOUTH ONE TIME PER WEEK 12 capsule 1 Mesalamine (LIALDA) 1.2 gram EC tablet Mesalamine Active PO September 18, 2020 11:14am (Patient not taking: Mesalamine Active PO September 18, 2020 11:14am) vedolizumab (ENTYVIO) 300 mg injection Infuse 300 mg every 4 weeks. 1 Each 5 Lactobacillus acidophilus (PROBIOTIC ORAL) Take by mouth. (Patient not taking: Reported on 12/09/2021 ) levothyroxine (SYNTHROID) 150 mcg tablet Take 1 tablet by mouth once daily. 30 tablet 0 Omeprazole 40 mg capsule Take 40 mg by mouth once daily. hydroCHLOROthiazide (HYDRODIURIL, ESIDRIX) 25 mg tablet Take 25 mg by mouth once daily. FLUoxetine (PROZAC) 20 mg capsule Take 20 mg by mouth once daily. apremilast (OTEZLA) 30 mg tablet Take 30 mg by mouth as needed. (Patient not taking: Reported on 12/09/2021 ) atenolol 25 mg tablet Take 25 mg by mouth once daily. No current facility-administered medications for this visit. ALLERGIES Allergen Reactions Azithromycin Unknown Metronidazole Itching Itching and redness Naproxen Penicillins Sulfa (Sulfonamide * Unknown Vancomycin Rash Zpack [Other] PHYSICAL EXAMINATION LMP 02/23/2011 General Appearance: alert, oriented x 3, pleasant and in no acute distress Heart:regular rate and rhythm, no murmurs or gallops Abdomen: Not distended. Normal bowel sounds. Soft and non-tender. No masses or organomegaly. Skin: no rashes or lesions Lymph:No cervical, axillary, supraclavicular, or inguinal adenopathy. Assessment IMPRESSION Ms. Stephenson is a 61 y/o woman with a medical history of ulcerative colitis s/p IPAA creation in 1994 (2 stage), who presents for evaluation after a recent pSBO showing a pouch inlet stricture along with post-stenotic dilation on CT, pouchoscopy revealing of pre-pouch, pouch inlet, and pouch inflammation, which has responded clinically to ciprofloxacin symptomatically, repeat pouchoscopy showed ongoing active inflammation of the pouch, pre-pouch (immediate), despite course of budesonide, now on vedolizumab with clinical improvement of pouch inflammation, with a plan to escalate to every 4 weeks. Recent surgery for IPMN, with a distal pancreatectomy and splenectomy. Reports that since escalation of therapy her symptoms have improved significantly in terms of frequency, cramping, urgency and incontinence. Will plan to assess with a pouchoscopy and obtain blood and stool testing PLAN -We will obtain blood work and stool testing -We will schedule a pouchoscopy for late summer -Will return after her pouchscoopy -She will continue the vedolizumab at every 4 weeks, last dose - was three weeks prior -Will plan to follow up after procedure PATIENT IS OK TO BE CONTACTED BY IBD GI RESEARCH TEAM TO EXPLORE PARTICIPATION IN RESEARCH STUDIES Ashu Mittal MD February 01, 2022 11:45 AM documented in this encounterUniversity Hospitals Lake [facility] Center07-15-2022 Evaluation note* Encounter Date Diagnosis Assessment Notes Treatment Notes Treatment Clinical Notes Jan, Acquired hypothyroidism (ICD-10 - E03.9) We will likely recheck her thyroid at her next visit Jan,2Diabetes mellitus due to underlying condition without complications (ICD-10 - E08.9)Continue with current NovoLog dosing at least until she sees the diabetes office Jan,Long term (current) use of insulin (ICD-10 - Z79.4) Jan,Essential (primary) hypertension (ICD-10 - I10)Given her recent operation and current blood pressure control, we will not switch to an ERNA or an ARB at this time. We will consider doing so in the future [employer] Other 06-29-2022 Miscellaneous Notes* Telephone Encounter - Janell Gallo RN - 01/11/2022 3:26 PM EDT Contacted pt and assisted with scheduling a follow up appt with Dr. Mittal on 02/02/2022. Janell Gallo RN January 11, 2022 3:35 PM documented in this encounterUniversity Hospitals Lake West Medical Center06-28-2022 Miscellaneous Notes* Telephone Encounter - Danna Kapoor RN - 01/10/2022 11:58 PM EDT Late entry, Left VM for patient that [facility] paperwork has RTW 02/19. If patient wishes to go back on 02/13 will addend. Left call back number. documented in this encounterUniversity Hospitals Lake West Medical Center06-28-2022 History of Present illness Narrative* Theron Harris MD - 01/10/2022 11:44 AM EDT GENERAL SURGERY POSTOPERATIVE EXAMINATION SERVICE DATE: 01/10/2022 Reason for Consult: Postoperative Visit SUBJECTIVE HPI: This is a 61 year old female with PMHx of mixed-type IMPN who presents for postoperative appointment s/p laparoscopic converted to open distal pancreatectomy and splenectomy; extensive AIDA, cholecystectomy, gastropexy, and repair of recurrent incisional hernia with mesh on 12/19/[address] Harris Presented to the ED about 1 week ago due to abdominal pain, N/V, and was concerned about her elevated blood glucose measurements because she did not have insulin at the time to administer. CT scan atthe time Otherwise, she is doing well since discharge. Getting back to normal activity within activity restriction. Her appetite is slowly increasing, and having normal BM (about 2x/day; applesauce consistence). No issues with incision. 1 IS[address] drain still in place; empties it approximately every other day (outputting less than 1 oz each time). Denies fevers, chills. PAST MEDICAL HISTORY: PAST MEDICAL HISTORY Diagnosis Date Arthritis Chronic pain of left knee 12/09/2021 Diabetes mellitus (HCC) History of transfusion HTN (hypertension) Hypothyroidism Lichen sclerosus Rheumatoid arthritis (HCC) UC (ulcerative colitis) (HCC) PAST SURGICAL HISTORY: PAST SURGICAL HISTORY Procedure Laterality Date ABDOMINAL SURGERY HX CHG DELIVERY PAST SURGICAL HISTORY OF 1995 2 stage j-pouch PAST SURGICAL HISTORY OF abdominal hernia x2 PICC LINE INSERT/CONSULT 12/23/2021 FAMILY HISTORY: FAMILY HISTORY Problem Relation Age of Onset Anesthesia Problems No Family History SOCIAL HISTORY: Social History Tobacco Use Smoking status: Never Smoker Smokeless tobacco: Never Used Vaping Use Vaping Use: Never used Substance Use Topics Alcohol use: Yes Comment: ocassionally Drug use: Never COMPLETE REVIEW OF SYSTEMS: GENERAL: Denies fevers HEENT: Denies headaches RESPIRATORY: Denies shortness of breath, cough CARDIOVASCULAR: Denies chest pain, leg swelling GI: Denies dysphagia, nausea, vomiting, diarrhea, constipation, abdominal pain, hematochezia, melena SKIN: Denies lesions, rash PSYCH: Denies sleep disturbance HEMATOLOGY/LYMPHOLOGY: Denies prolonged bleeding, bruising easily ENDOCRINE: Denies cold or heat intolerance NEURO: Denies headaches, numbness, weakness OBJECTIVE PHYSICAL EXAM: Body mass index is 37.11 kg/m . General: Alert, no acute distress, cooperative. HEENT: Normocephalic, atraumatic. Cardiovascular: Warm and well perfused. Pulmonary: Normal work of breathing on room air. Abdomen: Soft, non-distended, non-tender, no guarding. Incision healing well, sutures and kuldeep removed today. 1 drain with ss output; removed today. Extremities: Non-edematous, grossly normal ROM Skin: Warm, dry Neuro: Answering questions appropriately. DATA: Diagnostic tests reviewed for today's visit: Most recent labs and imaging results. Labs: CBC, BMP, MG, PHOS Recent Labs 12/26/21 0341 12/25/21 0534 12/24/21 0429 12/23/21 2054 12/23/21 0637 12/22/21 0350 12/21/21 0522 12/20/21 0217 12/19/21 2249 12/19/21 1451 12/09/21 1237 08/30/21 1107 03/30/21 1659 WBC -- -- -- 14.38* -- -- -- -- -- -- 7.58 6.28 8.16 HB 9.0* 14.3 8.5* 8.7* -- < > 8.5* < > -- < > 11.6 12.9 13.0 HCT 27.8* 43.8 -- 26.4* -- -- -- -- 33.2* < > 36.1 40.2 39.8 PLT -- -- -- 390 -- -- -- -- -- -- 248 264 310 NA 131* 133* -- -- 135* -- 134* < > 133* < > 131* 133* 131* K 4.1 3.8 -- 3.3* 3.2* -- 3.9 < > 4.1 < > 3.4* 3.5* 3.4* CHLOR 95* 97 -- -- 97 -- 99 < > 98 < > 93* 93* 95* CO2 24 27 -- -- 26 -- 25 < > 20* < > 25 25 24 BUN 4* 3* -- -- 7 -- 13 < > 11 < > 11 10 16 CREAT 0.67 0.64 -- -- 0.55* -- 0.69 < > 0.67 < > 0.75 0.75 0.85 GLUC 91 101* -- -- 74 -- 123* < > 237* < > 92 96 89 CA 9.1 8.9 -- -- 8.5 -- 8.8 < > 8.5 < > 9.6 9.8 9.6 MG 1.8 1.4* -- -- 1.5* -- 1.8 < > -- < > -- -- -- P 3.9 3.1 -- -- 2.9 -- 2.2* < > -- < > -- -- -- < > = values in this interval not displayed. Liver Function, Amylase, & Lipase Recent Labs 12/21/21 0522 12/20/21 0217 12/19/21 2249 12/19/21 0842 12/09/21 1237 10/14/20 1531 09/18/20 2047 09/18/20195609/18/20 185 TPROT 5.6* 5.9* 5.9* -- 6.7 < > -- -- 7.3 ALB 3.1* 3.4* 3.5* -- 3.8* < > -- -- 4.1 ALT 49* 84* 92* -- 10 < > -- -- 13 AST 29 70* 102* -- 17 < > -- -- 16 ALKPHOS 53 50 49 -- 72 < > -- -- 76 TBILI 0.3 0.4 0.4 -- 0.5 < > -- -- 0.4 LACT -- -- -- 0.9 -- -- 1.8 1.5 Duplicate request < > = values in this interval not displayed. Coags Recent Labs 09/18/20 1855 APTT 28.6 INR 1.1 ASSESSMENT AND PLAN 61 year old female with PMHx mixed-type IPMN who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 Reported* Type Description Date Medical History Hypothyroidism Medical HistoryHypertensionMedical HistorydepressionMedical History12/08/21 Diagnosis of intraductal papillary mucinous neoplasmMedical HistoryDM due to pancreas surgeryMedical HistoryLEFT ANKLE CELLULITIS 10/29/22Surgical History hernia [id number] HistoryC [id number] Historyj-pouch with [id number] Historysecond hernia [id number] History tonsillectomyas a childSurgical Historybilaterall foot surgerySurgical History reconstructive surgery on left ankle03/2019Surgical Historyj [id number] Historycholecystectomy, splenectomy, partial pancreas removal, and hernia repair 12/2021Hospitalization Historysee aboveHospitalization [id number] Hospitalization [id number] HistoryFRMC- CCVUPXFDAB15/2023 [employer] Other 05-26-2022 History of Past illness Narrative* Problem Noted DateResolved DateIPMN (intraductal papillary mucinous neoplasm) Last Assessment & Plan: Assessment: 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 open distal pancreatectomy, cholecystectomy, ventral hernia repair with bridging vicryl mesh 12/19/2021 PLAN: -GIS diet -Protonix 40mg PO daily -SSI AC/HS -Accuchecks AC/HS -ISAI drain to bulb suction -F/U pathology documented as of this encounter (statuses as of 12/27/2021) [facility] History of Past illness Narrative* ProblemNoted Date Resolved DateIPMN (intraductal papillary mucinous neoplasm)12/08/2021 12/26/2021 Last Assessment & Plan: Assessment: 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 open distal pancreatectomy, cholecystectomy, ventral hernia repair with bridging vicryl mesh 12/19/2021 PLAN: -GIS diet -Protonix 40mg PO daily -SSI AC/HS -Accuchecks AC/HS -ISAI drain to bulb suction -F/U pathology documented as of this encounter (statuses as of 12/28/2021) [facility] History of Past illness Narrative* ProblemNoted Date Resolved DateIPMN (intraductal papillary mucinous neoplasm)12/08/2021 12/26/2021 Last Assessment & Plan: Assessment: 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 open distal pancreatectomy, cholecystectomy, ventral hernia repair with bridging vicryl mesh 12/19/2021 PLAN: -GIS diet -Protonix 40mg PO daily -SSI AC/HS -Accuchecks AC/HS -ISAI drain to bulb suction -F/U pathology documented as of this encounter (statuses as of 12/29/2021) [facility] History of Past illness Narrative* ProblemNoted Date Resolved DateIPMN (intraductal papillary mucinous neoplasm)12/08/2021 12/26/2021 Last Assessment & Plan: Assessment: 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 open distal pancreatectomy, cholecystectomy, ventral hernia repair with bridging vicryl mesh 12/19/2021 PLAN: -GIS diet -Protonix 40mg PO daily -SSI AC/HS -Accuchecks AC/HS -ISAI drain to bulb suction -F/U pathology documented as of this encounter (statuses as of 01/02/2022) [facility] of Past illness Narrative* ProblemNoted Date Resolved DateIPMN (intraductal papillary mucinous neoplasm)12/08/2021 12/26/2021 Last Assessment & Plan: Assessment: 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 open distal pancreatectomy, cholecystectomy, ventral hernia repair with bridging vicryl mesh 12/19/2021 PLAN: -GIS diet -Protonix 40mg PO daily -SSI AC/HS -Accuchecks AC/HS -ISAI drain to bulb suction -F/U pathology documented as of this encounter (statuses as of 01/11/2022) [facility] of Past illness Narrative* ProblemNoted Date Resolved DateIPMN (intraductal papillary mucinous neoplasm)12/08/2021 12/26/2021 Last Assessment & Plan: Assessment: 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 open distal pancreatectomy, cholecystectomy, ventral hernia repair with bridging vicryl mesh 12/19/2021 PLAN: -GIS diet -Protonix 40mg PO daily -SSI AC/HS -Accuchecks AC/HS -ISAI drain to bulb suction -F/U pathology documented as of this encounter (statuses as of 01/11/2022) [facility] of Past illness Narrative* ProblemNoted Date Resolved DateIPMN (intraductal papillary mucinous neoplasm)12/08/2021 12/26/2021 Last Assessment & Plan: Assessment: 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 open distal pancreatectomy, cholecystectomy, ventral hernia repair with bridging vicryl mesh 12/19/2021 PLAN: -GIS diet -Protonix 40mg PO daily -SSI AC/HS -Accuchecks AC/HS -ISAI drain to bulb suction -F/U pathology documented as of this encounter (statuses as of 01/11/2022) [facility] of Past illness Narrative* ProblemNoted Date Resolved DateIPMN (intraductal papillary mucinous neoplasm)12/08/2021 12/26/2021 Last Assessment & Plan: Assessment: 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 open distal pancreatectomy, cholecystectomy, ventral hernia repair with bridging vicryl mesh 12/19/2021 PLAN: -GIS diet -Protonix 40mg PO daily -SSI AC/HS -Accuchecks AC/HS -ISAI drain to bulb suction -F/U pathology documented as of this encounter (statuses as of 01/19/2022) [facility] of Past illness Narrative* ProblemNoted Date Resolved DateIPMN (intraductal papillary mucinous neoplasm)12/08/2021 12/26/2021 Last Assessment & Plan: Assessment: 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 open distal pancreatectomy, cholecystectomy, ventral hernia repair with bridging vicryl mesh 12/19/2021 PLAN: -GIS diet -Protonix 40mg PO daily -SSI AC/HS -Accuchecks AC/HS -ISAI drain to bulb suction -F/U pathology documented as of this encounter (statuses as of 02/02/2022) [facility] of Past illness Narrative* ProblemNoted Date Resolved DateIPMN (intraductal papillary mucinous neoplasm)12/08/2021 12/26/2021 Last Assessment & Plan: Assessment: 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 open distal pancreatectomy, cholecystectomy, ventral hernia repair with bridging vicryl mesh 12/19/2021 PLAN: -GIS diet -Protonix 40mg PO daily -SSI AC/HS -Accuchecks AC/HS -ISAI drain to bulb suction -F/U pathology documented as of this encounter (statuses as of 02/02/2022) [address]26-2022 History of Past illness Narrative* ProblemNoted Date Resolved DateIPMN (intraductal papillary mucinous neoplasm)12/08/2021 12/26/2021 Last Assessment & Plan: Assessment: 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 open distal pancreatectomy, cholecystectomy, ventral hernia repair with bridging vicryl mesh 12/19/2021 PLAN: -GIS diet -Protonix 40mg PO daily -SSI AC/HS -Accuchecks AC/HS -ISAI drain to bulb suction -F/U pathology documented as of this encounter (statuses as of 02/07/2022) [facility] of [facility] illness Narrative* ProblemNoted Date Resolved DateIPMN (intraductal papillary mucinous neoplasm)12/08/2021 12/26/2021 Last Assessment & Plan: Assessment: 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 open distal pancreatectomy, cholecystectomy, ventral hernia repair with bridging vicryl mesh 12/19/2021 PLAN: -GIS diet -Protonix 40mg PO daily -SSI AC/HS -Accuchecks AC/HS -ISAI drain to bulb suction -F/U pathology documented as of this encounter (statuses as of 02/28/2022) [facility] of Past illness Narrative* ProblemNoted Date Resolved DateIPMN (intraductal papillary mucinous neoplasm)12/08/2021 12/26/2021 Last Assessment & Plan: Assessment: 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 open distal pancreatectomy, cholecystectomy, ventral hernia repair with bridging vicryl mesh 12/19/2021 PLAN: -GIS diet -Protonix 40mg PO daily -SSI AC/HS -Accuchecks AC/HS -ISAI drain to bulb suction -F/U pathology documented as of this encounter (statuses as of 03/16/2022) [facility] of Past illness Narrative* ProblemNoted Date Resolved DateIPMN (intraductal papillary mucinous neoplasm)12/08/2021 12/26/2021 Last Assessment & Plan: Assessment: 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 open distal pancreatectomy, cholecystectomy, ventral hernia repair with bridging vicryl mesh 12/19/2021 PLAN: -GIS diet -Protonix 40mg PO daily -SSI AC/HS -Accuchecks AC/HS -ISAI drain to bulb suction -F/U pathology documented as of this encounter (statuses as of 04/06/2022) [facility] of Past illness Narrative* ProblemNoted Date Resolved DateIPMN (intraductal papillary mucinous neoplasm)12/08/2021 12/26/2021 Last Assessment & Plan: Assessment: 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 open distal pancreatectomy, cholecystectomy, ventral hernia repair with bridging vicryl mesh 12/19/2021 PLAN: -GIS diet -Protonix 40mg PO daily -SSI AC/HS -Accuchecks AC/HS -ISAI drain to bulb suction -F/U pathology documented as of this encounter (statuses as of 04/10/2022) [facility] of Past illness Narrative* ProblemNoted Date Resolved DateIPMN (intraductal papillary mucinous neoplasm)12/08/2021 12/26/2021 Last Assessment & Plan: Assessment: 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 open distal pancreatectomy, cholecystectomy, ventral hernia repair with bridging vicryl mesh 12/19/2021 PLAN: -GIS diet -Protonix 40mg PO daily -SSI AC/HS -Accuchecks AC/HS -ISAI drain to bulb suction -F/U pathology documented as of this encounter (statuses as of 05/16/2022) [facility] of Past illness Narrative* ProblemNoted Date Resolved DateIPMN (intraductal papillary mucinous neoplasm)12/08/2021 12/26/2021 Last Assessment & Plan: Assessment: 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 open distal pancreatectomy, cholecystectomy, ventral hernia repair with bridging vicryl mesh 12/19/2021 PLAN: -GIS diet -Protonix 40mg PO daily -SSI AC/HS -Accuchecks AC/HS -ISAI drain to bulb suction -F/U pathology documented as of this encounter (statuses as of 06/13/2022) [facility] of Past illness Narrative* ProblemNoted Date Resolved DateIPMN (intraductal papillary mucinous neoplasm)12/08/2021 12/26/2021 Last Assessment & Plan: Assessment: 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 open distal pancreatectomy, cholecystectomy, ventral hernia repair with bridging vicryl mesh 12/19/2021 PLAN: -GIS diet -Protonix 40mg PO daily -SSI AC/HS -Accuchecks AC/HS -ISAI drain to bulb suction -F/U pathology documented as of this encounter (statuses as of 08/04/2022) [facility] of Past illness Narrative* ProblemNoted Date Resolved DateIPMN (intraductal papillary mucinous neoplasm)12/08/2021 12/26/2021 Last Assessment & Plan: Assessment: 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 open distal pancreatectomy, cholecystectomy, ventral hernia repair with bridging vicryl mesh 12/19/2021 PLAN: -GIS diet -Protonix 40mg PO daily -SSI AC/HS -Accuchecks AC/HS -ISAI drain to bulb suction -F/U pathology documented as of this encounter (statuses as of 08/08/2022) [facility] of Past illness Narrative* ProblemNoted Date Resolved DateIPMN (intraductal papillary mucinous neoplasm)12/08/2021 12/26/2021 Last Assessment & Plan: Assessment: 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 open distal pancreatectomy, cholecystectomy, ventral hernia repair with bridging vicryl mesh 12/19/2021 PLAN: -GIS diet -Protonix 40mg PO daily -SSI AC/HS -Accuchecks AC/HS -ISAI drain to bulb suction -F/U pathology documented as of this encounter (statuses as of 08/08/2022) [facility] of Past illness Narrative* ProblemNoted Date Resolved DateIPMN (intraductal papillary mucinous neoplasm)12/08/2021 12/26/2021 Last Assessment & Plan: Assessment: 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 open distal pancreatectomy, cholecystectomy, ventral hernia repair with bridging vicryl mesh 12/19/2021 PLAN: -GIS diet -Protonix 40mg PO daily -SSI AC/HS -Accuchecks AC/HS -ISAI drain to bulb suction -F/U pathology documented as of this encounter (statuses as of 08/08/2022) [facility] of Past illness Narrative* ProblemNoted Date Resolved DateIPMN (intraductal papillary mucinous neoplasm)12/08/2021 12/26/2021 Last Assessment & Plan: Assessment: 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 open distal pancreatectomy, cholecystectomy, ventral hernia repair with bridging vicryl mesh 12/19/2021 PLAN: -GIS diet -Protonix 40mg PO daily -SSI AC/HS -Accuchecks AC/HS -ISAI drain to bulb suction -F/U pathology documented as of this encounter (statuses as of 08/08/2022) [facility] of Past illness Narrative* ProblemNoted Date Resolved DateIPMN (intraductal papillary mucinous neoplasm)12/08/2021 12/26/2021 Last Assessment & Plan: Assessment: 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 open distal pancreatectomy, cholecystectomy, ventral hernia repair with bridging vicryl mesh 12/19/2021 PLAN: -GIS diet -Protonix 40mg PO daily -SSI AC/HS -Accuchecks AC/HS -ISAI drain to bulb suction -F/U pathology documented as of this encounter (statuses as of 08/15/2022) [facility] of Past illness Narrative* ProblemNoted Date Resolved DateIPMN (intraductal papillary mucinous neoplasm)12/08/2021 12/26/2021 Last Assessment & Plan: Assessment: 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 open distal pancreatectomy, cholecystectomy, ventral hernia repair with bridging vicryl mesh 12/19/2021 PLAN: -GIS diet -Protonix 40mg PO daily -SSI AC/HS -Accuchecks AC/HS -ISAI drain to bulb suction -F/U pathology documented as of this encounter (statuses as of 08/15/2022) [facility]05[facility] History of Past illness Narrative* ProblemNoted Date Resolved DateIPMN (intraductal papillary mucinous neoplasm)12/08/2021 12/26/2021 Last Assessment & Plan: Assessment: 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 open distal pancreatectomy, cholecystectomy, ventral hernia repair with bridging vicryl mesh 12/19/2021 PLAN: -GIS diet -Protonix 40mg PO daily -SSI AC/HS -Accuchecks AC/HS -ISAI drain to bulb suction -F/U pathology documented as of this encounter (statuses as of 08/16/2022) [facility]05-[facility] History of Past illness Narrative* ProblemNoted Date Resolved DateIPMN (intraductal papillary mucinous neoplasm)12/08/2021 12/26/2021 Last Assessment & Plan: Assessment: 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 open distal pancreatectomy, cholecystectomy, ventral hernia repair with bridging vicryl mesh 12/19/2021 PLAN: -GIS diet -Protonix 40mg PO daily -SSI AC/HS -Accuchecks AC/HS -ISAI drain to bulb suction -F/U pathology documented as of this encounter (statuses as of 11/02/2022) [facility] History of Past illness Narrative* ProblemNoted Date Resolved DateIPMN (intraductal papillary mucinous neoplasm)12/08/2021 12/26/2021 Last Assessment & Plan: Assessment: 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 open distal pancreatectomy, cholecystectomy, ventral hernia repair with bridging vicryl mesh 12/19/2021 PLAN: -GIS diet -Protonix 40mg PO daily -SSI AC/HS -Accuchecks AC/HS -ISAI drain to bulb suction -F/U pathology documented as of this encounter (statuses as of 12/13/2022) [facility] History of Past illness Narrative* ProblemNoted Date Resolved DateIPMN (intraductal papillary mucinous neoplasm)12/08/2021 12/26/2021 Last Assessment & Plan: Assessment: 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 open distal pancreatectomy, cholecystectomy, ventral hernia repair with bridging vicryl mesh 12/19/2021 PLAN: -GIS diet -Protonix 40mg PO daily -SSI AC/HS -Accuchecks AC/HS -ISAI drain to bulb suction -F/U pathology documented as of this encounter (statuses as of 12/15/2022) [facility] History of Past illness Narrative* ProblemNoted Date Resolved DateIPMN (intraductal papillary mucinous neoplasm)12/08/2021 12/26/2021 Last Assessment & Plan: Assessment: 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 open distal pancreatectomy, cholecystectomy, ventral hernia repair with bridging vicryl mesh 12/19/2021 PLAN: -GIS diet -Protonix 40mg PO daily -SSI AC/HS -Accuchecks AC/HS -ISAI drain to bulb suction -F/U pathology documented as of this encounter (statuses as of 12/18/2022) [facility] History of Past illness Narrative* ProblemNoted Date Resolved DateIPMN (intraductal papillary mucinous neoplasm)12/08/2021 12/26/2021 Last Assessment & Plan: Assessment: 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 open distal pancreatectomy, cholecystectomy, ventral hernia repair with bridging vicryl mesh 12/19/2021 PLAN: -GIS diet -Protonix 40mg PO daily -SSI AC/HS -Accuchecks AC/HS -ISAI drain to bulb suction -F/U pathology documented as of this encounter (statuses as of 01/04/2023) [facility] History of Past illness Narrative* ProblemNoted Date Resolved DateIPMN (intraductal papillary mucinous neoplasm)12/08/2021 12/26/2021 Last Assessment & Plan: Assessment: 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 open distal pancreatectomy, cholecystectomy, ventral hernia repair with bridging vicryl mesh 12/19/2021 PLAN: -GIS diet -Protonix 40mg PO daily -SSI AC/HS -Accuchecks AC/HS -ISAI drain to bulb suction -F/U pathology documented as of this encounter (statuses as of 01/09/2023) [facility] History of Past illness Narrative* ProblemNoted Date Diagnosed DateResolved DateIPMN (intraductal papillary mucinous neoplasm) Last Assessment & Plan: Assessment: 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 open distal pancreatectomy, cholecystectomy, ventral hernia repair with bridging vicryl mesh 12/19/2021 PLAN: -GIS diet -Protonix 40mg PO daily -SSI AC/HS -Accuchecks AC/HS -ISAI drain to bulb suction -F/U pathology documented as of this encounter (statuses as of 01/22/2023) [facility] History of Past illness Narrative* ProblemNoted Date Diagnosed DateResolved DateIPMN (intraductal papillary mucinous neoplasm) Last Assessment & Plan: Assessment: 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 open distal pancreatectomy, cholecystectomy, ventral hernia repair with bridging vicryl mesh 12/19/2021 PLAN: -GIS diet -Protonix 40mg PO daily -SSI AC/HS -Accuchecks AC/HS -ISAI drain to bulb suction -F/U pathology documented as of this encounter (statuses as of 02/16/2023) [facility] History of Past illness Narrative* ProblemNoted Date Diagnosed DateResolved DateIPMN (intraductal papillary mucinous neoplasm) / Last Assessment & Plan: Assessment: 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 open distal pancreatectomy, cholecystectomy, ventral hernia repair with bridging vicryl mesh 12/19/2021 PLAN: -GIS diet -Protonix 40mg PO daily -SSI AC/HS -Accuchecks AC/HS -ISAI drain to bulb suction -F/U pathology documented as of this encounter (statuses as of 03/28/2023) [facility] History of Past illness Narrative* ProblemNoted Date Diagnosed DateResolved DateIPMN (intraductal papillary mucinous neoplasm) Last Assessment & Plan: Assessment: 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 open distal pancreatectomy, cholecystectomy, ventral hernia repair with bridging vicryl mesh 12/19/2021 PLAN: -GIS diet -Protonix 40mg PO daily -SSI AC/HS -Accuchecks AC/HS -ISAI drain to bulb suction -F/U pathology documented as of this encounter (statuses as of 03/28/2023) [facility] History of Past illness Narrative* ProblemNoted Date Diagnosed DateResolved DateIPMN (intraductal papillary mucinous neoplasm) Last Assessment & Plan: Assessment: 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 open distal pancreatectomy, cholecystectomy, ventral hernia repair with bridging vicryl mesh 12/19/2021 PLAN: -GIS diet -Protonix 40mg PO daily -SSI AC/HS -Accuchecks AC/HS -ISAI drain to bulb suction -F/U pathology documented as of this encounter (statuses as of 04/21/2023) [facility] History of Past illness Narrative* ProblemNoted Date Diagnosed DateResolved DateIPMN (intraductal papillary mucinous neoplasm) / Last Assessment & Plan: Assessment: 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 open distal pancreatectomy, cholecystectomy, ventral hernia repair with bridging vicryl mesh 12/19/2021 PLAN: -GIS diet -Protonix 40mg PO daily -SSI AC/HS -Accuchecks AC/HS -ISAI drain to bulb suction -F/U pathology documented as of this encounter (statuses as of 04/25/2023) [facility] History of Past illness Narrative* ProblemNoted Date Diagnosed DateResolved DateIPMN (intraductal papillary mucinous neoplasm) / Last Assessment & Plan: Assessment: 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 open distal pancreatectomy, cholecystectomy, ventral hernia repair with bridging vicryl mesh 12/19/2021 PLAN: -GIS diet -Protonix 40mg PO daily -SSI AC/HS -Accuchecks AC/HS -ISAI drain to bulb suction -F/U pathology documented as of this encounter (statuses as of 05/22/2023) [facility] History of Past illness Narrative* ProblemNoted Date Diagnosed DateResolved DateIPMN (intraductal papillary mucinous neoplasm) Last Assessment & Plan: Assessment: 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 open distal pancreatectomy, cholecystectomy, ventral hernia repair with bridging vicryl mesh 12/19/2021 PLAN: -GIS diet -Protonix 40mg PO daily -SSI AC/HS -Accuchecks AC/HS -ISAI drain to bulb suction -F/U pathology documented as of this encounter (statuses as of 05/24/2023) [facility] History of Past illness Narrative* ProblemNoted Date Diagnosed DateResolved DateIPMN (intraductal papillary mucinous neoplasm) Last Assessment & Plan: Assessment: 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 open distal pancreatectomy, cholecystectomy, ventral hernia repair with bridging vicryl mesh 12/19/2021 PLAN: -GIS diet -Protonix 40mg PO daily -SSI AC/HS -Accuchecks AC/HS -ISAI drain to bulb suction -F/U pathology documented as of this encounter (statuses as of 08/19/2023) [facility]05[facility] History of Past illness Narrative* ProblemNoted Date Diagnosed DateResolved DateIPMN (intraductal papillary mucinous neoplasm) / Last Assessment & Plan: Assessment: 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 open distal pancreatectomy, cholecystectomy, ventral hernia repair with bridging vicryl mesh 12/19/2021 PLAN: -GIS diet -Protonix 40mg PO daily -SSI AC/HS -Accuchecks AC/HS -ISAI drain to bulb suction -F/U pathology documented as of this encounter (statuses as of 09/28/2023) [facility] History of Past illness Narrative* ProblemNoted Date Diagnosed DateResolved DateIPMN (intraductal papillary mucinous neoplasm) / Last Assessment & Plan: Assessment: 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 open distal pancreatectomy, cholecystectomy, ventral hernia repair with bridging vicryl mesh 12/19/2021 PLAN: -GIS diet -Protonix 40mg PO daily -SSI AC/HS -Accuchecks AC/HS -ISAI drain to bulb suction -F/U pathology documented as of this encounter (statuses as of 10/19/2023) [facility]05[facility] History of Past illness Narrative* ProblemNoted Date Diagnosed DateResolved DateIPMN (intraductal papillary mucinous neoplasm) / Last Assessment & Plan: Assessment: 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 I have explained to her that due to her surgery being on a Sunday, her test will have to be done a [facility] facility to ensure receipt of the results in time for surgery. She has verbalized understanding and I will have the schedulers contact her to schedule. documented in this encounterUniversity [facility] Miscellaneous Notes* Telephone Encounter - Janice Phoenix - 11/23/2021 9:40 AM EDT Called patient to schedule pre op appointments. She declined to schedule covid- 19 test. She states she want to use the self check kit that she has at home. I told her to discuss options with her surgeon when she comes in for office visit documented in this encounterUniversity Hospitals [facility] History of Present illness Narrative* Kody Avitia MD - 11/22/2021 10:52 AM EDT Images from the original note were not included. [facility] Multidisciplinary [facility] & Upper GI Case Conference -- Consensus Note -- Conference Date: 11/22/2021 Case reviewed with physicians from GI, Surgery, & Radiology services: -- Surgeons - Keaton Mcgee Joyce, Augustin -- Gastroenterologists - Barbara -- Radiologist - Jerson Almanza Issue(s) Question(s): JR is a 61 y/o female with medical/surgical history including UC (s/p TPC with Ileal-Anal J-pouch - 1994), RLQ incisional hernia repair (1996), ventral hernia repair w/ mesh (OSH - unknown year), recurrent pouchitis (crohn like disease; steroid taper +biologic agent), paraesophageal hernia, and a pancreatic tail cystic lesion 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 11/10/2021 - EGD/EUS -- 5 cm hiatal hernia -- Major papilla was normal -- Main PD 4 mm in the head/neck -- 2.5 cm cystic lesion of the pancreatic tail with no mural nodule or other HRS/WF -- Fluid studies: Amylase (391,880), CEA (8.7), glucose (< 2), cytology (negative for malignant cells) Pre-conference plan: - Compare MRI and EUS -- Our features more consistent with a sidebranch IPMN or a mixed type IPMN Imaging Review: - MRI pancreas and EUS images -- PD appears to be normal starting at the body/neck junction -- Imaging in the body/tail are more consistent with mixed type IPMN -- Challenging to discern actual main PD duct size given the multiple enlarged sidebranches in close proximity -- No mural nodules, masses, or other HRS/WF Final Consensus Recommendation(s): - Overall, the the constellation of imaging and endoscopic findings are consistent with a mixed type IPMN of the body/tail. There is a normal-appearing pancreatic duct starting in the middle of the body of the pancreas. - We agree with plans for a distal pancreatectomy +/- splenectomy Final recommendation(s) differ from pre-conference plan? - No Kody Avitia MD B Surgical Fellow documented in this encounterUniversity Hospitals [facility]05-[facility] History of Present illness Narrative* Theron Harris MD - 11/18/2021 3:28 PM EDT Pancreatic Cyst Follow Up PATIENT NAME: Laura Stephenson DATE of SERVICE: 11/18/2021 TIME of SERVICE: 3:49 PM HPI Presumed Diagnosis of Cyst: Mixed type IPMN REVIEW OF SYSTEMS GENERAL: No weight loss, malaise or fevers RESPIRATORY: Negative for cough, hemoptysis, wheezing, COPD, dyspnea or shortness of breath CARDIOVASCULAR: Negative for chest pain, leg swelling, CHF or palpitations GI: No nausea, vomiting, or diarrhea PHYSICAL EXAM General Appearance: Well appearing, alert, in no acute distress, well-hydrated, well nourished.. Skin: Skin color, texture, turgor normal, no suspicious rashes or lesions. Lungs: Lungs clear to auscultation. No wheezing, rhonchi, rales.. Heart: RRR without murmur, gallop, or rubs. No ectopy. Abdomen: Normal abdominal exam, Abdomen soft, non-tender. Bowel sounds normal. No masses, organomegaly. SOCIAL HISTORY Patient is currently smoking: No Patient is currently using alcohol: No Surgical intervention for cyst: Yes, Distal Pancreatectomy - , Pathology Diagnosis: Mixed type IPMN EUS: Yes, Date - 11/10/2021 LOCATION: Head: No Body/Tail: Yes, largest size: 25 mm. Total number of cysts: Multiple SEPTATIONS : No THICK WALLED/HYPERVASCULAR : No CENTRAL CALCIFICATIONS: No PERIPHERAL CALCIFICATIONS : No MASS COMPONENT: No MURAL NODULE: No COMMUNICATION WITH MPD: Yes MPD: Head: <5 mm Body/Tail: <5 mm AMPULLARY ORIFICE: Normal ASPIRATION: Yes CYTOLOGY: Negative MUCIN: Not Done CEA: 8.7 AMYLASE: [id number] Date and Type of Most Recent Imaging Characteristics: MRI: 11/11/2021 LOCATION: Head: No Body/Tail: Yes, largest size: 25 mm. Total number of cysts: Multiple SEPTATIONS : No THICK WALLED : No CENTRAL CALCIFICATIONS: No PERIPHERAL CALCIFICATIONS : No MASS COMPONENT: No MURAL NODULE: No COMMUNICATION WITH MPD: Yes MPD: Head: <5 mm Body/Tail: <5 mm Serum Labs: CEA (ng/mL) Date Value 03/30/2021 0.9 CA19-9 (U/mL) Date Value 03/30/2021 26 No results found for: CHROMOA Glucose (mg/dL) Date Value 08/30/2021 96 03/30/2021 89 10/14/2020 119 PANCREATIC POLYPEPTIDE: Not Done GASTRIN: Not Done Assessment Laura Stephenson is a 61 year old female who presents with Mixed type IPMN. Last dose of Entyvio 1 week ago. Patient will transition to 3 mg budesonide on Sunday. PLAN Plan for distal panc/spleen in December Splenectomy vaccines Adelaide Marie MD 3:49 PM 11/18/2021 [facility] STAFF PHYSICIAN NOTE OF PERSONAL INVOLVEMENT IN CARE I have reviewed the progress note obtained and documented by the resident and I personally participated in the chu components. I have discussed the case and management of the patient's care. The following comments revise or confirm relevant chu components of the note. IMPRESSION: This is a 61 year old with mixed type IPMN. Recent knee injury limiting mobility. No bony injury per local evaluation. Hiatal hernia. PLAN: Will touch base in the next 10-14 days to see if her mobility is better. Discussed pros and cons of synchronous hiatal hernia repair with Dr. Heath - hold off for now since symptoms minimaland if there was a pleural breach in the presence of a pancreatic leak that would be a bad problem. 20 mins Theron Harris MD documented in this encounterUniversity Hospitals Lake [facility]05-06-2022 Nurse Note* Rubina Curtis Ma - 11/18/2021 3:28 PM EDT What is the reason for your visit today? est Who is your referring physician? Are you having poor oral intake? NO Have you had unintentional weight loss of 15 lbs/7 Kg in the last 3-6 months? NO Bowels: regular Wound: clean & dry Temperature: No Drains: No documented in this encounterUniversity Hospitals Lake [facility] Center05-06-2022 History of Present illness Narrative* Nupur Sagastume, RT(R) - 11/18/2021 2:20 PM EDT Radiology Service Progress Note PATIENT NAME: Laura Stephenson DATE OF SERVICE: November 18, 2021 TIME: 2:53 PM PATIENT IDENTITY VERIFICATION COMPLETED USING TWO (2) IDENTIFIERS: Name and Date of confirmedby patient verbally. FALL SCREENING: Has the patient had 2 falls in the last year or 1 fall with injury or currently using an Ambulatory Assistive Device (Walker, Cane, Wheelchair, Crutches, etc.)? Yes, Patient High Riskfor Falls What interventions were put in place to prevent falls during this visit? Increased Observations by Caregivers PATIENT GENDER DATA: Female. status: : No status: NO. PATIENT RELEVANT IMPLANT DATA REVIEWED: Not Applicable RADIOLOGY DEPARTMENT: General X-ray: Exam(s) Completed: GI/ Procedure(s): Upper GI with barium contrast PERIPHERAL IV DATA: Not applicable SIGNED BY: RT Qiana(Zofia) November 18, 2021 2:53 PM documented in this encounterUniversity Hospitals Lake [facility] Center05-01-2022 Evaluation note* Encounter Date Diagnosis Assessment Notes Treatment Notes Treatment Clinical Notes November, Fall, initial encounter (ICD-10 - W19.XXXA) November,Effusion, right knee (ICD-10 - M25.461) XR images and final report reviewed, effusion and spurring noted. Discussed diagnosis with patient.Advised patient that these issues are chronic in nature, no acute findings were present on XR. RICEtherapy discussed- rest extremity, avoid excessive or strenuous activity, complete activity as tolerated; ice area for 15-20 minutes at a time multiple times a day, ensure thin cloth barrier between skin and ice; ERNA wrap area; keep extremity elevated. Advised patient to use OTC NSAIDs/Tylenol as directed as needed for discomfort. Follow up with PCP for further management. Immediate eval by ER for warning s/sx as discussed. Patient verbalizes understanding and is agreeable to treatment plan [employer] Other 04-28-2022 Nurse Note* Danika Arroyo RN - 11/10/2021 10:49 AM EDT AMBULATORY PATIENT EDUCATION NOTE TOPIC: GI PROCEDURES: Endoscopic Ultrasound (EUS) with or without Fine Needle Aspiration (FNA) Esophagogastroduodenoscopy(EGD) with or without biopies based on clinical findings, removal of polyps or lesions READINESS TO LEARN INSTRUCTION PROVIDED TO: Patient, readness to learn accessed prior to procedure COGNITIVE ABILITY: Alert and oriented PTED MOTIVATION TO LEARN: Eager Interested FAMILY SUPPORT: High - Very involved in pt care IPATIENT LEARNS BEST BY: Individual Instruction FACTORS AFFECTING LEARNING: None PHYSICAL LIMITATIONS AFFECTING LEARNING: None LEARNING RESPONSE METHOD OF INSTRUCTION: Individual instruction PATIENT / FAMILY RESPONSE: Verbalizes understanding of: WORSENING CONDITION- Signs and symptoms of aworsening condition that warrant a call to the physician FOLLOW-UP PLAN: Patient instructed to call with any further issues Recommend - Recommend continued instruction and follow up as directed Contact information given. SUPPLEMENTAL MATERIAL: Procedure Discharge Instructions REFERRAL (RECOMMENDATION): None documented in this encounterUniversity Hospitals Lake West Medical Center04-21-2022 Miscellaneous Notes* Telephone Encounter - Jerardo Rodriguez RN - 11/03/2021 3:01 PM EDT Attempted to reach the patient at the contact number that they provided [phone] (home) . Unable to speak with patient so without identifying the patient the following information was left on their voice mail: Date of procedure, location and report time Prep instructions A message was left informing the patient/patient parts representative they must have a responsible adult accompany them to their procedure; and remain in the endoscopy area until they are discharged. Failure to have a responsible adult accompany the patient to their procedure appointment prevents the useof sedation or anesthesia for their procedure; and can result in cancellation of the procedure NPO instructions were reviewed. Clear liquids the day before the procedure, stop all liquids 4 hours before the procedure Instructions to contact their primary care provider regarding their medications and which medications to stop in preparation for their procedure Instructions to completely read and follow the written instructions that they recieved regarding their procedure. Number to call with questions or concerns [phone] Number to call to cancel their procedure [phone] Jerardo Rodriguez RN documented in this encounterUniversity Hospitals Lake [facility] Center03-23-2022 Miscellaneous Notes* Telephone Encounter - Janell Gallo RN - 10/05/2021 1:46 PM EDT Denial overturned. Letter to be faxed to the office. Janell Gallo RN October 05, 2021 1:46 PM * Telephone Encounter - Janell Gallo RN - 10/03/2021 2:09 PM EDT Peer to Peer will be on October 05 @ 11:30am with Dr. Dontrell Chatterjee who will call Dr. Mittal cell phone regarding Entyvio 300mg Q8W to Q4W / Case # [id number]. Janell Gallo RN October 03, 2021 2:10 PM * Telephone Encounter - Janell Gallo RN - 09/26/2021 10:16 AM EDT Received notice from [facility]inator (Diana Benoit) that pt's insurance denied Entyvio dose escalation to every four weeks. Contacted [facility]) regarding denial. Per [facility] parts representative claim was denied as does not meet medical necessity. Letter will be faxed to the office today with details on how to proceed. Janell Gallo RN September 26, 2021 10:32 AM documented in this encounterD[facility] ClinicEvaluation [facility]* Diagnosis Pancreatic cyst Cyst and pseudocyst of pancreas [facility]* Diagnosis IPMN (intraductal papillary mucinous neoplasm) Neoplasm of unspecified nature of digestive system documented in this encounter [facility]* Diagnosis IPMN (intraductal papillary mucinous neoplasm) Neoplasm of unspecified nature of digestive system [facility]* Diagnosis Preoperative examination- Primary Preoperative examination, unspecified IPMN (intraductal papillary mucinous neoplasm) Neoplasm of unspecified nature of digestive system Pancreatic cyst Cyst and pseudocyst of pancreas Preoperative examination Preoperative examination, unspecified Pancreatic cyst Cyst and pseudocyst of pancreas IPMN (intraductal papillary mucinous neoplasm) Neoplasm of unspecified nature of digestive system [facility] Pre-op evaluation- Primary Preoperative examination, unspecified IPMN (intraductal papillary mucinous neoplasm) Neoplasm of unspecified nature of digestive system Hypertension, unspecified type BMI 38.0-38.9,adult Body Mass Index 38.0-38.9, adult Gastroesophageal reflux disease without esophagitis Esophageal reflux Type 2 diabetes mellitus with other specified complication, unspecified whether mcc insulin use (HCC) Preoperative examination Preoperative examination, unspecified Pancreatic cyst Cyst and pseudocyst of pancreas Chronic pain of left knee Pain in joint, lower leg Preoperative examination Preoperative examination, unspecified Pancreatic cyst Cyst and pseudocyst of pancreas IPMN (intraductal papillary mucinous neoplasm) Neoplasm of unspecified nature of digestive system documented in this encounter [facility] note* Diagnosis Preoperative examination- Primary Preoperative examination, unspecified Preoperative examination Preoperative examination, unspecified Pancreatic cyst Cyst and pseudocyst of pancreas IPMN (intraductal papillary mucinous neoplasm) Neoplasm of unspecified nature of digestive system documented in this encounter [facility] note* Diagnosis Preoperative examination Preoperative examination, unspecified Pancreatic cyst Cyst and pseudocyst of pancreas IPMN (intraductal papillary mucinous neoplasm) Neoplasm of unspecified nature of digestive system Preoperative examination Preoperative examination, unspecified Pancreatic cyst Cyst and pseudocyst of pancreas IPMN (intraductal papillary mucinous neoplasm) Neoplasm of unspecified nature of digestive system documented in this encounter [facility] note* Diagnosis IPMN (intraductal papillary mucinous neoplasm)- Primary Neoplasm of unspecified nature of digestive system Preoperative examination Preoperative examination, unspecified Pancreatic cyst Cyst and pseudocyst of pancreas IPMN (intraductal papillary mucinous neoplasm) Neoplasm of unspecified nature of digestive system documented in this encounter [facility] note* Diagnosis IPMN (intraductal papillary mucinous neoplasm)- Primary Neoplasm of unspecified nature of digestive system Abnormal findings on diagnostic imaging of liver and biliary tract documented in this encounter [facility] note* Diagnosis Pouchitis (HCC)- Primary Pouchitis documented in this encounter [facility] note* Diagnosis Preoperative examination- Primary Preoperative examination, unspecified documented in this encounter [facility] noteNo InformationNort [employer] Other Evaluation note* Diagnosis Thrombocytosis- Primary Essential thrombocythemia documented in this encounter [facility] noteNo assessment information available[facility] Work [facility]* Diagnosis Diarrhea, unspecified type- Primary documented in this encounter [facility] note* Diagnosis Pouchitis (HCC)- Primary Pouchitis [facility] Diagnosis Onset Date Resolution Status Cellulitis acute [facility] Work Phone: Evaluation note* Diagnosis Abnormal findings on diagnostic imaging of liver and biliary tract [facility] Diagnosis Obesity, Class I, BMI 30-34.9- Primary Obesity, unspecified IPMN (intraductal papillary mucinous neoplasm) Neoplasm of unspecified nature of digestive system Abnormal findings on diagnostic imaging of liver and biliary tract Incisional hernia, without obstruction or gangrene Incisional hernia without mention of obstruction or gangrene [facility] Diagnosis Incisional hernia, without obstruction or gangrene Incisional hernia without mention of obstruction or gangrene [facility]* Diagnosis 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 Other vitamin B12 deficiency anemia Iron deficiency anemia secondary to inadequate dietary iron intake [facility]* Diagnosis SBO (small bowel obstruction) (HCC)- Primary Unspecified intestinal obstruction Crohn's disease of small intestine with complication (HCC) Regional enteritis of small intestine [facility] Diagnosis Pouchitis (HCC)- Primary Pouchitis Crohn's disease of small intestine with complication (HCC) Regional enteritis of small intestine [facility]* Diagnosis Pancreatic cyst Cyst and pseudocyst of pancreas [facility]* Diagnosis 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 Other vitamin B12 deficiency anemia Iron deficiency anemia secondary to inadequate dietary iron intake Hyponatremia Hyposmolality and/or hyponatremia [facility] this [facility]* Diagnosis Vitamin B12 deficient megaloblastic anemia- Primary Other vitamin B12 deficiency anemia 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 [facility]* Diagnosis Onset Date Resolution Status BMI 32.0-32.9,adult acuteDietary counseling and surveillanceacuteHyperlipidemiaacuteHypertension acuteType 2 diabetes mellitusacute [facility] Work Phone: Evaluation note* Diagnosis Pouchitis (HCC)- Primary Pouchitis Crohn's disease of small intestine with complication (HCC) Regional enteritis of small intestine [facility]* Diagnosis Onset Date Resolution Status BMI 32.0-32.9,adult acuteDietary counseling and surveillanceacuteHyperlipidemiaacuteHypertension acuteType 2 diabetes mellitusacuteAcute kidney injuryacutePartial small bowel obstructionacute [facility] Work Phone: Evaluation note* Diagnosis Iron deficiency anemia secondary to inadequate dietary iron intake- Primary Vitamin B12 deficient megaloblastic anemia Other vitamin B12 deficiency anemia Thrombocytosis 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 [facility]* Diagnosis Intestinal obstruction due to stricture of intestine (HCC)- Primary [facility]* Diagnosis Abnormal findings on diagnostic imaging of liver and biliary tract documented [facility]* Diagnosis Onset Date Resolution Status Acute kidney injury acuteHypertensionacuteMetabolic acidosisacutePartial small bowel obstruction acuteUlcerative colitisacuteBMI 32.0-32.9,adultacuteDietary counseling and surveillanceacuteHyperlipidemiaacuteHypertensionacuteType 2 diabetes mellitus [facility] Work Phone: Evaluation note* Diagnosis Crohn's disease of small intestine with complication (HCC)- Primary Regional enteritis of small intestine [facility]* Diagnosis Onset Date Resolution Status Acute kidney injury acuteHypertensionacuteMetabolic acidosisacutePartial small bowel obstruction acuteUlcerative colitisacuteBMI 30.0-30.9,adultacuteDietary counseling and surveillanceacuteHyperlipidemiaacuteHypertensionacuteType 2 diabetes mellitus acuteAcquired hypothyroidismacuteScreening for breast cancernon[facility] Work Phone: [facility] note* Diagnosis Abnormal findings on diagnostic imaging of liver and biliary tract- Primary IPMN (intraductal papillary mucinous neoplasm) Neoplasm of unspecified nature of digestive system Incisional hernia, without obstruction or gangrene Incisional hernia without mention of obstruction or gangrene [facility]* Diagnosis Onset Date Resolution Status Acute kidney injury acuteHypertensionacuteMetabolic acidosisacutePartial small bowel obstruction acuteUlcerative colitisacuteBMI 30.0-30.9,adultacuteDietary counseling and surveillanceacuteHyperlipidemiaacuteHypertensionacuteType 2 diabetes mellitus acuteAcquired hypothyroidismacuteEssential (primary) hypertensionacuteScreening for [facility] cancerE[facility] Work [facility]: [facility]* Diagnosis SBO (small bowel obstruction) (HCC)- Primary Unspecified intestinal obstruction Post-operative pain Other acute postoperative pain Pouchitis (HCC) Pouchitis documented in this encounter [facility] note* Diagnosis Crohn's disease of small intestine with complication (HCC)- Primary Regional enteritis of small intestine Pouchitis (HCC) Pouchitis documented in this encounter [facility] note* Diagnosis Onset Date Resolution Status BMI 30.0-30.9,adult acuteDietary counseling and surveillanceacuteHyperlipidemiaacuteHypertension acuteType 2 diabetes mellitusacuteAcquired hypothyroidismacuteEssential (primary) hypertensionacuteScreening for [facility] cancerE[facility] Work Phone: Evaluation note* Diagnosis Iron deficiency anemia secondary to inadequate dietary iron intake- Primary Thrombocytosis 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 documented in this encounter [facility] note* Diagnosis Indeterminate colitis Other and unspecified noninfectious gastroenteritis and colitis [facility] Diagnosis IPMN (intraductal papillary mucinous neoplasm)- Primary Neoplasm of unspecified nature of digestive system Preoperative examination Preoperative examination, unspecified Pancreatic cyst Cyst and pseudocyst of pancreas IPMN (intraductal papillary mucinous neoplasm) Neoplasm of unspecified nature of digestive system Post-operative pain Other acute postoperative pain Hypertension Unspecified essential hypertension Gastroesophageal reflux disease without esophagitis Esophageal reflux DVT prophylaxis Long-term (current) use of anticoagulants Post-operative pain Other acute postoperative pain Depression Depressive disorder, not elsewhere classified Hypothyroidism Unspecified hypothyroidism BMI 38.0-38.9,adult Body Mass Index 38.0-38.9, adult Pre-op evaluation- Primary Preoperative examination, unspecified IPMN (intraductal papillary mucinous neoplasm) Neoplasm of unspecified nature of digestive system Hypertension, unspecified type BMI 38.0-38.9,adult Body Mass Index 38.0-38.9, adult Gastroesophageal reflux disease without esophagitis Esophageal reflux Type 2 diabetes mellitus with other specified complication, unspecified whether terminal makeup operator insulin use (HCC) Preoperative examination Preoperative examination, unspecified Pancreatic cyst Cyst and pseudocyst of pancreas Chronic pain of left knee Pain in joint, lower leg Crohn's disease of small intestine with complication (HCC) Regional enteritis of small intestine documented in this encounter [facility] note* Diagnosis IPMN (intraductal papillary mucinous neoplasm)- Primary Neoplasm of unspecified nature of digestive system Preoperative examination Preoperative examination, unspecified Pancreatic cyst Cyst and pseudocyst of pancreas IPMN (intraductal papillary mucinous neoplasm) Neoplasm of unspecified nature of digestive system Post-operative pain Other acute postoperative pain Hypertension Unspecified essential hypertension Gastroesophageal reflux disease without esophagitis Esophageal reflux DVT prophylaxis Long-term (current) use of anticoagulants Post-operative pain Other acute postoperative pain Depression Depressive disorder, not elsewhere classified Hypothyroidism Unspecified hypothyroidism BMI 38.0-38.9,adult Body Mass Index 38.0-38.9, adult Pre-op evaluation- Primary Preoperative examination, unspecified IPMN (intraductal papillary mucinous neoplasm) Neoplasm of unspecified nature of digestive system Hypertension, unspecified type BMI 38.0-38.9,adult Body Mass Index 38.0-38.9, adult Gastroesophageal reflux disease without esophagitis Esophageal reflux Type 2 diabetes mellitus with other specified complication, unspecified whether mcc insulin use (HCC) Preoperative examination Preoperative examination, unspecified Pancreatic cyst Cyst and pseudocyst of pancreas Chronic pain of left knee Pain in joint, lower leg Indeterminate colitis Other and unspecified noninfectious gastroenteritis and colitis documented in this encounter [facility] note* Diagnosis IPMN (intraductal papillary mucinous neoplasm)- Primary Neoplasm of unspecified nature of digestive system Preoperative examination Preoperative examination, unspecified Pancreatic cyst Cyst and pseudocyst of pancreas IPMN (intraductal papillary mucinous neoplasm) Neoplasm of unspecified nature of digestive system Post-operative pain Other acute postoperative pain Hypertension Unspecified essential hypertension Gastroesophageal reflux disease without esophagitis Esophageal reflux DVT prophylaxis Long-term (current) use of anticoagulants Post-operative pain Other acute postoperative pain Depression Depressive disorder, not elsewhere classified Hypothyroidism Unspecified hypothyroidism BMI 38.0-38.9,adult Body Mass Index 38.0-38.9, adult Pre-op evaluation- Primary Preoperative examination, unspecified IPMN (intraductal papillary mucinous neoplasm) Neoplasm of unspecified nature of digestive system Hypertension, unspecified type BMI 38.0-38.9,adult Body Mass Index 38.0-38.9, adult Gastroesophageal reflux disease without esophagitis Esophageal reflux Type 2 diabetes mellitus with other specified complication, unspecified whether mcc insulin use (HCC) Preoperative examination Preoperative examination, unspecified Pancreatic cyst Cyst and pseudocyst of pancreas Chronic pain of left knee Pain in joint, lower leg 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 Iron deficiency anemia secondary to inadequate dietary iron intake Vitamin B12 deficient megaloblastic anemia Other vitamin B12 deficiency anemia Psoriasis Other psoriasis documented in this encounter [facility] note* Diagnosis IPMN (intraductal papillary mucinous neoplasm)- Primary Neoplasm of unspecified nature of digestive system Preoperative examination Preoperative examination, unspecified Pancreatic cyst Cyst and pseudocyst of pancreas IPMN (intraductal papillary mucinous neoplasm) Neoplasm of unspecified nature of digestive system Post-operative pain Other acute postoperative pain Hypertension Unspecified essential hypertension Gastroesophageal reflux disease without esophagitis Esophageal reflux DVT prophylaxis Long-term (current) use of anticoagulants Post-operative pain Other acute postoperative pain Depression Depressive disorder, not elsewhere classified Hypothyroidism Unspecified hypothyroidism BMI 38.0-38.9,adult Body Mass Index 38.0-38.9, adult Pre-op evaluation- Primary Preoperative examination, unspecified IPMN (intraductal papillary mucinous neoplasm) Neoplasm of unspecified nature of digestive system Hypertension, unspecified type BMI 38.0-38.9,adult Body Mass Index 38.0-38.9, adult Gastroesophageal reflux disease without esophagitis Esophageal reflux Type 2 diabetes mellitus with other specified complication, unspecified whether mcc insulin use (HCC) Preoperative examination Preoperative examination, unspecified Pancreatic cyst Cyst and pseudocyst of pancreas Chronic pain of left knee Pain in joint, lower leg Crohn's disease of small intestine with complication (HCC)- Primary Regional enteritis of small intestine Hypothyroidism, unspecified type Vitamin D deficiency Unspecified vitamin D deficiency documented in this encounter [facility] note* Diagnosis IPMN (intraductal papillary mucinous neoplasm)- Primary Neoplasm of unspecified nature of digestive system Preoperative examination Preoperative examination, unspecified Pancreatic cyst (HCC) Cyst and pseudocyst of pancreas IPMN (intraductal papillary mucinous neoplasm) Neoplasm of unspecified nature of digestive system Post-operative pain Other acute postoperative pain Hypertension Unspecified essential hypertension Gastroesophageal reflux disease without esophagitis Esophageal reflux DVT prophylaxis Long-term (current) use of anticoagulants Post-operative pain Other acute postoperative pain Depression Depressive disorder, not elsewhere classified Hypothyroidism Unspecified hypothyroidism BMI 38.0-38.9,adult Body Mass Index 38.0-38.9, adult Pre-op evaluation- Primary Preoperative examination, unspecified IPMN (intraductal papillary mucinous neoplasm) Neoplasm of unspecified nature of digestive system Hypertension, unspecified type BMI 38.0-38.9,adult Body Mass Index 38.0-38.9, adult Gastroesophageal reflux disease without esophagitis Esophageal reflux Type 2 diabetes mellitus with other specified complication, unspecified whether mcc insulin use (HCC) Preoperative examination Preoperative examination, unspecified Pancreatic cyst (HCC) Cyst and pseudocyst of pancreas Chronic pain of left knee Pain in joint, lower leg Indeterminate colitis Other and unspecified noninfectious gastroenteritis and colitis documented in this encounter [facility] note* Diagnosis Onset Date Resolution Status Admit Date BMI 33.0-33.9,adult acuteApril 2024 7:55amDietary counseling and surveillanceacuteApril 2024 7:55amHyperlipidemiaacuteApril 2024 7:55amHypertensionacuteApril 2024 7:55amType 2 diabetes mellitusacuteApril 2024 7:55am [facility] Work Phone: Evaluation note* Diagnosis IPMN (intraductal papillary mucinous neoplasm)- Primary Neoplasm of unspecified nature of digestive system Preoperative examination Preoperative examination, unspecified Pancreatic cyst (HCC) Cyst and pseudocyst of pancreas IPMN (intraductal papillary mucinous neoplasm) Neoplasm of unspecified nature of digestive system Post-operative pain Other acute postoperative pain Hypertension Unspecified essential hypertension Gastroesophageal reflux disease without esophagitis Esophageal reflux DVT prophylaxis Long-term (current) use of anticoagulants Post-operative pain Other acute postoperative pain Depression Depressive disorder, not elsewhere classified Hypothyroidism Unspecified hypothyroidism BMI 38.0-38.9,adult Body Mass Index 38.0-38.9, adult Pre-op evaluation- Primary Preoperative examination, unspecified IPMN (intraductal papillary mucinous neoplasm) Neoplasm of unspecified nature of digestive system Hypertension, unspecified type BMI 38.0-38.9,adult Body Mass Index 38.0-38.9, adult Gastroesophageal reflux disease without esophagitis Esophageal reflux Type 2 diabetes mellitus with other specified complication, unspecified whether mcc insulin use (HCC) Preoperative examination Preoperative examination, unspecified Pancreatic cyst (HCC) Cyst and pseudocyst of pancreas Chronic pain of left knee Pain in joint, lower leg Abnormal findings on diagnostic imaging of liver and biliary tract IPMN (intraductal papillary mucinous neoplasm) Neoplasm of unspecified nature of digestive system [facility] (intraductal papillary mucinous neoplasm)- Primary Neoplasm of unspecified nature of digestive system Preoperative examination Preoperative examination, unspecified Pancreatic cyst (HCC) Cyst and pseudocyst of pancreas IPMN (intraductal papillary mucinous neoplasm) Neoplasm of unspecified nature of digestive system Post-operative pain Other acute postoperative pain Hypertension Unspecified essential hypertension Gastroesophageal reflux disease without esophagitis Esophageal reflux DVT prophylaxis Long-term (current) use of anticoagulants Post-operative pain Other acute postoperative pain Depression Depressive disorder, not elsewhere classified Hypothyroidism Unspecified hypothyroidism BMI 38.0-38.9,adult Body Mass Index 38.0-38.9, adult Pre-op evaluation- Primary Preoperative examination, unspecified IPMN (intraductal papillary mucinous neoplasm) Neoplasm of unspecified nature of digestive system Hypertension, unspecified type BMI 38.0-38.9,adult Body Mass Index 38.0-38.9, adult Gastroesophageal reflux disease without esophagitis Esophageal reflux Type 2 diabetes mellitus with other specified complication, unspecified whether terminal makeup operator insulin use (HCC) Preoperative examination Preoperative examination, unspecified Pancreatic cyst (HCC) Cyst and pseudocyst of pancreas Chronic pain of left knee Pain in joint, lower leg Abnormal findings on diagnostic imaging of liver and biliary tract- Primary IPMN (intraductal papillary mucinous neoplasm) Neoplasm of unspecified nature of digestive system [facility] Diagnosis IPMN (intraductal papillary mucinous neoplasm)- Primary Neoplasm of unspecified nature of digestive system Preoperative examination Preoperative examination, unspecified Pancreatic cyst (HCC) Cyst and pseudocyst of pancreas IPMN (intraductal papillary mucinous neoplasm) Neoplasm of unspecified nature of digestive system Post-operative pain Other acute postoperative pain Hypertension Unspecified essential hypertension Gastroesophageal reflux disease without esophagitis Esophageal reflux DVT prophylaxis Long-term (current) use of anticoagulants Post-operative pain Other acute postoperative pain Depression Depressive disorder, not elsewhere classified Hypothyroidism Unspecified hypothyroidism BMI 38.0-38.9,adult Body Mass Index 38.0-38.9, adult Pre-op evaluation- Primary Preoperative examination, unspecified IPMN (intraductal papillary mucinous neoplasm) Neoplasm of unspecified nature of digestive system Hypertension, unspecified type BMI 38.0-38.9,adult Body Mass Index 38.0-38.9, adult Gastroesophageal reflux disease without esophagitis Esophageal reflux Type 2 diabetes mellitus with other specified complication, unspecified whether mcc insulin use (HCC) Preoperative examination Preoperative examination, unspecified Pancreatic cyst (HCC) Cyst and pseudocyst of pancreas Chronic pain of left knee Pain in joint, lower leg SBO (small bowel obstruction) (HCC)- Primary Unspecified intestinal obstruction Crohn's disease of small intestine with complication (HCC) Regional enteritis of small intestine documented in this encounter [facility] note* Diagnosis IPMN (intraductal papillary mucinous neoplasm)- Primary Neoplasm of unspecified nature of digestive system Preoperative examination Preoperative examination, unspecified Pancreatic cyst (HCC) Cyst and pseudocyst of pancreas IPMN (intraductal papillary mucinous neoplasm) Neoplasm of unspecified nature of digestive system Post-operative pain Other acute postoperative pain Hypertension Unspecified essential hypertension Gastroesophageal reflux disease without esophagitis Esophageal reflux DVT prophylaxis Long-term (current) use of anticoagulants Post-operative pain Other acute postoperative pain Depression Depressive disorder, not elsewhere classified Hypothyroidism Unspecified hypothyroidism BMI 38.0-38.9,adult Body Mass Index 38.0-38.9, adult Pre-op evaluation- Primary Preoperative examination, unspecified IPMN (intraductal papillary mucinous neoplasm) Neoplasm of unspecified nature of digestive system Hypertension, unspecified type BMI 38.0-38.9,adult Body Mass Index 38.0-38.9, adult Gastroesophageal reflux disease without esophagitis Esophageal reflux Type 2 diabetes mellitus with other specified complication, unspecified whether terminal makeup operator insulin use (HCC) Preoperative examination Preoperative examination, unspecified Pancreatic cyst (HCC) Cyst and pseudocyst of pancreas Chronic pain of left knee Pain in joint, lower leg Crohn's disease of small intestine with complication (HCC) Regional enteritis of small intestine documented in this encounter [facility] note* Diagnosis IPMN (intraductal papillary mucinous neoplasm)- Primary Neoplasm of unspecified nature of digestive system Preoperative examination Preoperative examination, unspecified Pancreatic cyst (HCC) Cyst and pseudocyst of pancreas IPMN (intraductal papillary mucinous neoplasm) Neoplasm of unspecified nature of digestive system Post-operative pain Other acute postoperative pain Hypertension Unspecified essential hypertension Gastroesophageal reflux disease without esophagitis Esophageal reflux DVT prophylaxis Long-term (current) use of anticoagulants Post-operative pain Other acute postoperative pain Depression Depressive disorder, not elsewhere classified Hypothyroidism Unspecified hypothyroidism BMI 38.0-38.9,adult Body Mass Index 38.0-38.9, adult Pre-op evaluation- Primary Preoperative examination, unspecified IPMN (intraductal papillary mucinous neoplasm) Neoplasm of unspecified nature of digestive system Hypertension, unspecified type BMI 38.0-38.9,adult Body Mass Index 38.0-38.9, adult Gastroesophageal reflux disease without esophagitis Esophageal reflux Type 2 diabetes mellitus with other specified complication, unspecified whether mcc insulin use (HCC) Preoperative examination Preoperative examination, unspecified Pancreatic cyst (HCC) Cyst and pseudocyst of pancreas Chronic pain of left knee Pain in joint, lower leg Crohn's disease of small intestine with complication (HCC)- Primary Regional enteritis of small intestine documented in this encounter [facility] note* Diagnosis IPMN (intraductal papillary mucinous neoplasm)- Primary Neoplasm of unspecified nature of digestive system Preoperative examination Preoperative examination, unspecified Pancreatic cyst (HCC) Cyst and pseudocyst of pancreas IPMN (intraductal papillary mucinous neoplasm) Neoplasm of unspecified nature of digestive system Post-operative pain Other acute postoperative pain Hypertension Unspecified essential hypertension Gastroesophageal reflux disease without esophagitis Esophageal reflux DVT prophylaxis Long-term (current) use of anticoagulants Post-operative pain Other acute postoperative pain Depression Depressive disorder, not elsewhere classified Hypothyroidism Unspecified hypothyroidism BMI 38.0-38.9,adult Body Mass Index 38.0-38.9, adult Pre-op evaluation- Primary Preoperative examination, unspecified IPMN (intraductal papillary mucinous neoplasm) Neoplasm of unspecified nature of digestive system Hypertension, unspecified type BMI 38.0-38.9,adult Body Mass Index 38.0-38.9, adult Gastroesophageal reflux disease without esophagitis Esophageal reflux Type 2 diabetes mellitus with other specified complication, unspecified whether terminal makeup operator insulin use (HCC) Preoperative examination Preoperative examination, unspecified Pancreatic cyst (HCC) Cyst and pseudocyst of pancreas Chronic pain of left knee Pain in joint, lower leg Indeterminate colitis Other and unspecified noninfectious gastroenteritis and colitis documented in this encounter [facility] note* Diagnosis IPMN (intraductal papillary mucinous neoplasm)- Primary Neoplasm of unspecified nature of digestive system Preoperative examination Preoperative examination, unspecified Pancreatic cyst (HCC) Cyst and pseudocyst of pancreas IPMN (intraductal papillary mucinous neoplasm) Neoplasm of unspecified nature of digestive system Post-operative pain Other acute postoperative pain Hypertension Unspecified essential hypertension Gastroesophageal reflux disease without esophagitis Esophageal reflux DVT prophylaxis Long-term (current) use of anticoagulants Post-operative pain Other acute postoperative pain Depression Depressive disorder, not elsewhere classified Hypothyroidism Unspecified hypothyroidism BMI 38.0-38.9,adult Body Mass Index 38.0-38.9, adult Pre-op evaluation- Primary Preoperative examination, unspecified IPMN (intraductal papillary mucinous neoplasm) Neoplasm of unspecified nature of digestive system Hypertension, unspecified type BMI 38.0-38.9,adult Body Mass Index 38.0-38.9, adult Gastroesophageal reflux disease without esophagitis Esophageal reflux Type 2 diabetes mellitus with other specified complication, unspecified whether mcc insulin use (HCC) Preoperative examination Preoperative examination, unspecified Pancreatic cyst (HCC) Cyst and pseudocyst of pancreas Chronic pain of left knee Pain in joint, lower leg Psoriasis- Primary Other psoriasis Crohn's disease of small intestine with complication (HCC) Regional enteritis of small intestine [facility] Diagnosis IPMN (intraductal papillary mucinous neoplasm)- Primary Neoplasm of unspecified nature of digestive system Preoperative examination Preoperative examination, unspecified Pancreatic cyst (HCC) Cyst and pseudocyst of pancreas IPMN (intraductal papillary mucinous neoplasm) Neoplasm of unspecified nature of digestive system Post-operative pain Other acute postoperative pain Hypertension Unspecified essential hypertension Gastroesophageal reflux disease without esophagitis Esophageal reflux DVT prophylaxis Long-term (current) use of anticoagulants Post-operative pain Other acute postoperative pain Depression Depressive disorder, not elsewhere classified Hypothyroidism Unspecified hypothyroidism BMI 38.0-38.9,adult Body Mass Index 38.0-38.9, adult Pre-op evaluation- Primary Preoperative examination, unspecified IPMN (intraductal papillary mucinous neoplasm) Neoplasm of unspecified nature of digestive system Hypertension, unspecified type BMI 38.0-38.9,adult Body Mass Index 38.0-38.9, adult Gastroesophageal reflux disease without esophagitis Esophageal reflux Type 2 diabetes mellitus with other specified complication, unspecified whether terminal makeup operator insulin use (HCC) Preoperative examination Preoperative examination, unspecified Pancreatic cyst (HCC) Cyst and pseudocyst of pancreas Chronic pain of left knee Pain in joint, lower leg 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 Iron deficiency anemia secondary to inadequate dietary iron intake Vitamin B12 deficient megaloblastic anemia Other vitamin B12 deficiency anemia Psoriasis Other psoriasis Iron deficiency Iron deficiency anemia, unspecified Anemia due to vitamin B12 deficiency, unspecified B12 deficiency type Status post splenectomy Other acquired absence of organ [facility] Diagnosis IPMN (intraductal papillary mucinous neoplasm)- Primary Neoplasm of unspecified nature of digestive system Preoperative examination Preoperative examination, unspecified Pancreatic cyst (HCC) Cyst and pseudocyst of pancreas IPMN (intraductal papillary mucinous neoplasm) Neoplasm of unspecified nature of digestive system Post-operative pain Other acute postoperative pain Hypertension Unspecified essential hypertension Gastroesophageal reflux disease without esophagitis Esophageal reflux DVT prophylaxis Long-term (current) use of anticoagulants Post-operative pain Other acute postoperative pain Depression Depressive disorder, not elsewhere classified Hypothyroidism Unspecified hypothyroidism BMI 38.0-38.9,adult Body Mass Index 38.0-38.9, adult Pre-op evaluation- Primary Preoperative examination, unspecified IPMN (intraductal papillary mucinous neoplasm) Neoplasm of unspecified nature of digestive system Hypertension, unspecified type BMI 38.0-38.9,adult Body Mass Index 38.0-38.9, adult Gastroesophageal reflux disease without esophagitis Esophageal reflux Type 2 diabetes mellitus with other specified complication, unspecified whether mcc insulin use (HCC) Preoperative examination Preoperative examination, unspecified Pancreatic cyst (HCC) Cyst and pseudocyst of pancreas Chronic pain of left knee Pain in joint, lower leg Inflammatory arthritis- Primary Unspecified inflammatory polyarthropathy documented in this [facility] Author Le Colin [facility] October 29, 2022 1:24pmNote Date/TimeApril 2022 1:05[place] [address] Hospitalist H&P Signed Patient: Laura Stephenson MR#: [id number] : 1960 Acct:[id number] Age/Sex: 62 / F Adm Date: 3 Loc: ER Room: Type: [facility] ER Attending Dr: Copies to: MD Renaldo Ayala DO Timothy A Dymond, DARBY~ HPI DATE OF EXAMINATION: 10/29/22 CHIEF COMPLAINT: Left leg redness HISTORY OF PRESENT ILLNESS: This is a 62-year-old female with history of diabetes mellitus, morbid obesity who presents to the emergency room for evaluation of redness in the left lower leg. Yesterday, she had a fever and chills, and when she woke up this morning she noticed significant redness and warmth to the left lower leg. Her injury. She complains of pain in the area, worse with ambulation. Denies any chest painor shortness of breath. Ultrasound of the legs was negative for DVT. The patient is admitted for further management Review of Systems Review of Systems All other systems reviewed & are negative unless noted below or in HPI PMFSH Vaccinated for COVID-19?: Yes Medical History (Updated 10/29/22 @ 12:29 by Kamari Galindo APRN) Depression GERD (gastroesophageal reflux disease) Hypertension Hypothyroidism Schatzki's ring Surgical History H/O section H/O foot surgery bilateral H/O hernia repair x2 History of ankle surgery History of tonsillectomy Hx of appendectomy w/j-pouch Family History (Updated 08/19/20 @ 08:29 by Hnanah Aburto RN) Mother Atrial fibrillation TIA (transient ischemic attack) Father Diabetes Heart disease Social History Smoking Status: Never smoker Substance Use Type: None Meds Medications and Allergies Allergies azithromycin [From Zithromax Z-Jake] Allergy (Verified 10/29/22 10:36) Redness of Skin metronidazole [From Flagyl] Allergy (Verified 10/29/22 10:36) Redness of Skin naproxen Allergy (Verified 10/29/22 10:36) Redness of Skin Penicillins Allergy (Verified 10/29/22 10:36) Redness of Skin Sulfa (Sulfonamide Antibiotics) Allergy (Verified 10/29/22 10:36) Redness of Skin vancomycin Allergy (Verified 10/29/22 10:36) Rash Home Medications atenolol 25 mg tablet 25 mg PO DAILY 07/30/17 [History Confirmed 10/29/22] fluoxetine 20 mg capsule 20 mg PO DAILY 07/30/17 [History Confirmed 10/29/22] levothyroxine 150 mcg tablet 150 mcg PO DAILY 07/30/17 [History Confirmed 10/29/22] diphenoxylate-atropine 2.5 mg-0.025 mg tablet 1 tab PO DIRECTED 09/18/20 [History Confirmed 10/29/22] mesalamine 0.375 gram capsule,extended release 24 hr PO 09/18/20 [History] omeprazole 20 mg capsule,delayed release 20 mg PO DAILY 09/18/20 [History Confirmed 10/29/22] hydrochlorothiazide 25 mg tablet 25 mg PO 10/29/22 [History] hydroxychloroquine 200 mg tablet 200 mg PO 10/29/22 [History] insulin aspart U-100 100 unit/mL (3 mL) subcutaneous pen (Novolog FlexPen U-100 Insulin aspart) subcut 10/29/22 [History Confirmed 10/29/22] potassium chloride 10 mEq tablet,extended release 10 meq PO DAILY 10/29/22 [History Confirmed 10/29/22] Exam Physical Exam Vital Signs: Temp Pulse Resp BP Pulse Ox O2 Del Method 99.4 F H 100 H 18 120/60 99 Room Air 10/29/22 12:48 10/29/22 12:48 10/29/22 12:48 10/29/22 12:48 10/29/22 12:48 10/29/22 10:35 Narrative: Patient is awake and alert, oriented to place, time and person HEENT: pink conjunctiva and normal buccal mucosa Neck: supple, no tenderness Endocrine: no thyromegaly Vascular: No JVD or carotid bruit Lymphatic: no cervical lymphadenopathy Chest: CTA bilaterally Heart: RRR, no extra sounds or murmurs Abd: soft NT, no rebound or rigidity, increased abdominal girth, therefore, clinically I could not exclude the possibility of intra-abdominal mass or organomegaly Ext: Left lower leg erythematous, warm, and tender to palpation Neuro: A&O x3, normal speech comprehension and attention, normal and symmetricalmotor and tone examination throughout Results Lab Results Labs: Laboratory Last Values Corrected WBC 36.9 X10E3/uL (3.8-11.6) H 10/29/22 11:25 Uncorrected WBC Count 36.9 x10E3/uL (3.8-11.6) H 10/29/22 11:25 RBC 4.07 X10E6/uL (3.60-5.00) 10/29/22 11:25 Hgb 11.1 g/dL (11.8-15.4) L 10/29/22 11:25 Hct 33.7 % (34.0-46.4) L 10/29/22 11:25 MCV 82.7 fl (80-100) 10/29/22 11:25 MCH 27.3 pg (24.7-34.3) 10/29/22 11:25 MCHC 33.0 g/dL (32.0-35.0) 10/29/22 11:25 RDW 15.4 % (11.9-15.3) H 10/29/22 11:25 Plt Count 474 x10E3/uL (150-450) H 10/29/22 11:25 MPV 6.5 fl (6.3-10.7) 10/29/22 11:25 Neut % (Auto) 90.4 % (.) 10/29/22 11:25 Lymph % (Auto) 6.1 % (.) 10/29/22 11:25 [place] % (Auto) 3.1 % (.) 10/29/22 11:25 Eos % (Auto) 0.0 % (.) 10/29/22 11:25 Baso % (Auto) 0.4 % (.) 10/29/22 11:25 Nucleat RBC Rel Count 0.0 /100 WBC (0-0.5) 10/29/22 11:25 Neut # (Auto) 33.3 x10E3/uL (1.8-7.7) H 10/29/22 11:25 Lymph # (Auto) 2.2 x10E3/uL (1.00-4.8) 10/29/22 11:25 [place] # (Auto) 1.2 x10E3/uL (0.0-0.8) H 10/29/22 11:25 Eos # (Auto) 0.0 x10E3/uL (0.0-0.45) 10/29/22 11:25 Baso # (Auto) 0.2 x10E3/uL (0.0-0.2) 10/29/22 11:25 Monocyte Dist Width 30.98 % (0.00-20.00) H 10/29/22 11:25 Platelet Estimate Increased (Normal) 10/29/22 11:25 Plt Morphology Comment Normal (Normal) 10/29/22 11:25 RBC Morphology N/A 10/29/22 11:25 Hypochromasia Slight 10/29/22 11:25 Target Cells Slight 10/29/22 11:25 PT 16.0 Seconds (9.0-12.9) H 10/29/22 11:25 INR 1.4 10/29/22 11:25 APTT 29.1 Seconds (25.1-36.5) 10/29/22 11:25 PHA Creatinine Clear 80.01 10/29/22 11:25 Sodium 127 mmol/L (136-145) L 10/29/22 11:25 Potassium 3.3 mmol/L (3.5-5.1) L 10/29/22 11:25 Chloride 91 mmol/L (98-107) L 10/29/22 11:25 Carbon Dioxide 25.6 mmol/L (21.0-31.0) 10/29/22 11:25 Anion Gap 13.7 mEq/L (6.0-15.0) 10/29/22 11:25 BUN 14 mg/dL (7-25) 10/29/22 11:25 Creatinine 0.84 mg/dL (0.60-1.20) 10/29/22 11:25 Est GFR (CKD-EPI) > 60.0 mL/Min 10/29/22 11:25 Glucose 131 mg/dL (70-100) H 10/29/22 11:25 Lactic Acid 1.4 mmol/L (0.5-2.2) 10/29/22 11:25 Calcium 8.4 mg/dL (8.6-10.3) L 10/29/22 11:25 Total Bilirubin 0.7 mg/dl (0.3-1.0) 10/29/22 11:25 AST 21 U/L (13-39) 10/29/22 11:25 ALT 19 U/L (7-52) 10/29/22 11:25 Alkaline Phosphatase 49 U/L (34-104) 10/29/22 11:25 Total Protein 6.8 gm/dL (6.4-8.9) 10/29/22 11:25 Albumin 3.5 gm/dL (3.5-5.7) 10/29/22 11:25 Globulin 3.3 gm/dL 10/29/22 11:25 Albumin/Globulin Ratio 1.1 10/29/22 11:25 Urine Color Yellow (Yellow) 10/29/22 12:15 Urine Appearance Clear (Clear) 10/29/22 12:15 Urine pH 6.5 (5.0-9.0) 10/29/22 12:15 Ur Specific Aladdin 1.005 (1.001-1.030) 10/29/22 12:15 Urine Protein Negative mg/dL (Negative) 10/29/22 12:15 Urine Glucose (UA) Normal mg/dL (Normal) 10/29/22 12:15 Urine Ketones Negative (Negative) 10/29/22 12:15 Urine Occult Blood Negative (Negative) 10/29/22 12:15 Urine Nitrite Negative (Negative) 10/29/22 12:15 Urine Bilirubin Negative (Negative) 10/29/22 12:15 Urine Urobilinogen Normal mg/dL (Normal) 10/29/22 12:15 Ur Leukocyte Esterase 1+ (Negative) H 10/29/22 12:15 Urine RBC 1-2 /HPF (0-4) 10/29/22 12:15 Urine WBC 5-9 /HPF (0-4) H 10/29/22 12:15 Ur Squamous Epith Cells 3-4 /HPF (0-2) H 10/29/22 12:15 Urine Bacteria None seen (None Seen) 10/29/22 12:15 Hyaline Casts None seen /LPF (0-8) 10/29/22 12:15 A&P - Hospitalist Assessment/Plan (1) Cellulitis: Plan Left lower extremity cellulitis Severe sepsis without septic shock Diabetes mellitus, morbid obesity Hypertension, hypothyroidism, GERD Plan: IV linezolid, analgesics as needed, repeat CBC tomorrow Gentle IV hydration for 1 L DVT prophylaxis Monitor Accu-Cheks, sliding scale insulin Documented By: Le Colin MD 10/29/22 1305 Signed By: <Electronically signed by Le Colin MD> 10/29/22 1324 [facility] Work Phone: History general Narrative - Reported* Type Description Date Medical History Hypothyroidism Medical HistoryHypertensionMedical HistorydepressionMedical Historystomach inflamationsSurgical Historyhernia [id number] HistoryC [id number] Surgical Historyj-pouch with [id number] Historysecond hernia [id number] Historytonsillectomyas a childSurgical Historybilaterall foot surgerySurgical Historyreconstructive surgery on left ankle03/2019Surgical Historyj PouchHospitalization Historysee aboveHospitalization [id number] Hospitalization [id number] [employer] Other History general Narrative - Reported* Type Description Date Medical History Hypothyroidism Medical HistoryHypertensionMedical HistorydepressionMedical HistoryDM due to pancreas surgerySurgical Historyhernia [id number] HistoryC [id number] Surgical Historyj-pouch with [id number] Historysecond hernia [id number] Historytonsillectomyas a childSurgical Historybilaterall foot surgerySurgical Historyreconstructive surgery on left ankle03/2019Surgical Historyj Kqimg1018Ihylzcii Historycholecystectomy, splenectomy, partial pancreas removal, and hernia repair12/2021Hospitalization Historysee aboveHospitalization [id number] Muzatjlsge7412 [employer] Other Hospital Discharge instructions Additional Instructions Quarantine for 5 days as discussed Bananas, rice, applesauce, toast to help form your stool Good handwashing Continue use of your mask Have your sodium rechecked on Sunday Follow-up with your primary care doctor in [address] [place] [address] Work Phone: Reason for referral (narrative)* Outpatient Procedure (Routine) - ClosedSpecialtyDiagnoses / ProceduresReferred By ContactReferred To ContactGESTIVE DISE[facility]STITUTE Diagnoses IPMN (intraductal papillary mucinous neoplasm) Procedures EGD - THERAPEUTIC, EUS, OR TUBE INTERVENTIONS EDG US EXAM SURGICAL ALTER STOM DUODENUM/JEJUNUM Theron Harris MD [address] [facility] [place] [address] [facility] [address] [place] [address] Referral IDStatusReasonStart DateExpiration DateVisits RequestedVisits [id number] Auto-Generated Referral [facility] for referral (narrative)* Diagnostic Procedure Only (Routine) - ClosedSpecialtyDiagnoses / ProceduresReferred By ContactReferred To ContactXR IMAGING Diagnoses IPMN (intraductal papillary mucinous neoplasm) Procedures XR UPPER GI ROUTINE DOUBLE CONTRAST/AIR RADIOLOGIC EXAM UPR GI TRC DOUBLE CONTRAST STUDY Theron Harris MD [address] [facility]. [address] [place] [address] Xr Imaging Referral IDStatusRemosaic life care at st. josephStiraan DateExpiration DateVisits RequestedVisits [id number] Auto-Generated Referral / [facility] for referral (narrative)* Outpatient Procedure (Routine) - Pending ReviewSpecialtyDiagnoses / ProceduresReferred By ContactReferred To ContactDIGESTIVE DISEASE INSTITUTE Diagnoses Pouchitis (HCC) Procedures POUCHOSCOPY UNLISTED PROCEDURE SMALL INTESTINE Ashu Mittal MD [address] [place] [address] [facility] [address] [place] [address] Ref[facility]Status[facility] DateExpiration DateVisits RequestedVisits [id number] Review Auto-Generated Referral / [facility] for referral (narrative)* Outpatient Procedure (Routine) - ClosedSpecialtyDiagnoses / ProceduresReferred By ContactReferred To Contact Gastroenterology / ENDOSCOPY Diagnoses Crohn's disease of small intestine with complication (HCC) Procedures POUCHOSCOPY NDSC EVAL INTSTINAL POUCH DX W/COLLJ SPEC SPX Ashu Mittal MD [address] [place] [address] [facility] [address] [place] [id number] Referral IDStatus[facility] DateExpiration DateVisits RequestedVisits [id number] Auto-Generated Referral / [facility] ClinicReason for referral (narrative)* Outpatient Procedure (Routine) - Pending ReviewSpecialtyDiagnoses / ProceduresReferred By ContactReferred To ContactDIGESTIVE DISEASE INSTITUTE Diagnoses Pouchitis (HCC) Procedures POUCHOSCOPY NDSC EVAL INTSTINAL POUCH DX W/COLLJ SPEC SPX Ashu Mittal MD [address] [place], [place] [id number] [facility] [address] [place] [address] Referral IDStatus[facility] DateExpiration DateVisits RequestedVisits [id number] Review Auto-Generated Referral [facility] for referral (narrative)No reason for referral information availableUniversity Hospitals [facility] Work Phone: Reason for visit Narrative* Auth/CertSpecialty Diagnoses / ProceduresReferred By ContactReferred To ContactENDOSCOPY Diagnoses IPMN (intraductal papillary mucinous neoplasm) IPMN (intraductal papillary mucinous neoplasm) [D49.0] Procedures ESOPHAGOGASTRODUODENOSCOPY TRANSORAL DIAGNOSTIC EGD - THERAPEUTIC, EUS, OR TUBE INTERVENTIONS [GI2] [facility] [address] [place] [address] Referral IDStatusReasonStiraan DateExpiration DateVisits RequestedVisits [id number] [facility] for visit NarrativeSelf referral, IDDM new pt apt with [employer], [employer] Other Reason for visit Narrative* Outpatient Procedure (Routine) - ClosedSpecialtyDiagnoses / ProceduresReferred By ContactReferred To ContactGastroenterology / ENDOSCOPY Diagnoses Crohn's disease of small intestine with complication (HCC) Procedures POUCHOSCOPY NDSC EVAL INTSTINAL POUCH DX W/COLLJ SPEC SPX Ashu Mittal MD [address] [place], [place] [id number] [facility] [address] [place] [phone] Referral IDStatusReasonStart DateExpiration DateVisits RequestedVisits [id number] Auto-Generated Referral / [facility] for visit Narrative* Outpatient Procedure (Routine) - ClosedSpecialtyDiagnoses / ProceduresReferred By ContactReferred To Contact [facility] Diagnoses Pouchitis (HCC) Procedures POUCHOSCOPY NDSC EVAL INTSTINAL POUCH DX W/COLLJ SPEC SPX Ashu Mittal MD [address] [place] [address] [facility] [place] [address] [place] [address] Referral IDStatusShaynaasonStiraan DateExpiration DateVisits RequestedVisits [id number] Auto-Generated Referral / [facility] for visit Narrative* Outpatient Procedure (Routine) - ClosedSpecialtyDiagnoses / ProceduresReferred By ContactReferred To Contact [facility] Diagnoses Crohn's disease of small intestine with complication (HCC) Procedures POUCHOSCOPY POUCHOSCOPY NDSC EVAL INTSTINAL POUCH W/BX SINGLE/MULTIPLE Kate Grier PA-C [address] [place] [address] Phone: tel: fax: [facility] [address] [place] [address] Referral IDStatusReasonStiraan DateExpiration DateVisits RequestedVisits [id number] Auto-Generated Referral / [facility] for visit Narrative* [place] Prior Authorization (Routine) - AuthorizedSpecialtyDiagnoses / ProceduresReferred By ContactReferred To Contact Diagnoses Psoriasis Crohn's disease of small intestine with complication (HCC) Ashu Mittal MD [address] [place] [address] Phone: tel: fax: Hematology/Oncology [address] [place] [address] [place] [address] Phone: tel: fax: Referral IDStatusReasonStart DateExpiration DateVisits RequestedVisits [id number]/6/202511/[id number] [facility] Advance Directives No Advanced Directives Records FoundDocuments on File TypeDate RecordedPatient RepresentativeExplanationAdvance Directive(s)09/19/2020 2:29 PMTypeDate RecordedPatient RepresentativeExplanationAdvance Directive(s) 09/19/2020 2:29 PMTypeDate RecordedPatient RepresentativeExplanationAdvance Directive(s)11/28/2021 1:20 PMAdvance Directive(s)09/19/2020 2:29 PMTypeDate RecordedPatient RepresentativeExplanationAdvance Directive(s)11/28/2021 1:20 PM Advance Directive(s)09/19/2020 2:29 PM Advance Directive Response Recorded Date/ Time Advance Directives No July 20, 2017 4:31pm Advance Directive Response Recorded Date/ Time Advance Directives No July 20, 2017 3:31pm Reason for Referral SpecialtyDiagnoses / ProceduresReferred By ContactReferred To ContactMR IMAGING Diagnoses Pancreatic cyst Procedures MRI PANC/ROSE MARIE WO/W IVCON MRI ABDOMEN W/O & W/CONTRAST MATERIAL Theron Harris MD [address] [address] Mr Imaging Referral IDStatusReasonStart DateExpiration DateVisits RequestedVisits [id number] Review Auto-Generated Referral [id number] / ProceduresReferred By ContactReferred To Contact Diagnoses Preoperative examination 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) Procedures IN PERSON CONSULT TO PACC Theron Harris MD [address] Des[address] [place] [address] Referral IDStatusReasonStart DateExpiration DateVisits RequestedVisits [id number] Not Required PCP Requested Referral [id number] / ProceduresReferred By ContactReferred To ContactMERCY [facility] ST[facility] Diagnoses Preoperative examination 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) Procedures ECG COMPLETE ECG ROUTINE ECG W/LEAST 12 LDS W/I&R Theron Harris MD [address] [facility] [place] [address] [facility] [place] [address] [place] [address] Referral IDStatusReasonStart DateExpiration DateVisits RequestedVisits [id number] Review Auto-Generated Referral [id number] / ProceduresReferred By ContactReferred To ContactPain Management Diagnoses Preoperative examination 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) Procedures CONSULT TO PAIN MGT OFFICE/OUTPATIENT [facility] 60-74 MINUTES Theron Harris MD [address] [place] [address] Referral IDStatusReyeimiBeale Afb DateExpiration DateVisits RequestedVisits [id number] PCP Requested Referral [id number] / ProceduresReferred By ContactReferred To ContactMR IMAGING Diagnoses Abnormal findings on diagnostic imaging of liver and biliary tract Procedures MRI PANC/ROSE MARIE WO/W IVCON MRI ABDOMEN W/O & W/CONTRAST MATERIAL Theron Harris MD [address] [facility] [place] [address] Mr Imaging Referral IDStatusReasonStart DateExpiration DateVisits RequestedVisits [id number] Review Auto-Generated Referral [id number] / ProceduresReferred By ContactReferred To ContactHematology Diagnoses Thrombocytosis Procedures CONSULT TO HEMATOLOGY OFFICE/OUTPATIENT [facility] 60-74 MINUTES Ashu Mittal MD [address] [place] [address] Referral IDStatusReasonStart DateExpiration DateVisits RequestedVisits [id number] PCP Requested Referral /[id number] IDStatusReasonStart DateExpiration DateVisits RequestedVisits [id number] Auto-Generated Referral /[id number] / ProceduresReferred By ContactReferred To ContactGerman Hospitalral Surgery Diagnoses Incisional hernia, without obstruction or gangrene Procedures CONSULT TO GENERAL SURGERY OFFICE/OUTPATIENT [facility] 60-74 MINUTES Theron Harris MD [address] [place] [address] Referral IDStatusReasonStart DateExpiration DateVisits RequestedVisits [id number] PCP Requested Referral /[id number] IDStatusReasonStart DateExpiration DateVisits RequestedVisits [id number] Review Auto-Generated Referral /[id number] / ProceduresReferred By ContactReferred To Contact IMAGING Diagnoses Pancreatic cyst Procedures MRI PANC/ROSE MARIE WO/W IVCON MRI,ABDOMEN,W&WO CONTRS Theron Harris MD [address] [place] [address] Mr Imaging [place] [address] Referral IDStatusReasonStart DateExpiration DateVisits RequestedVisits [id number]/17/202112/[id number] / Procedures Referred By ContactReferred To Contact IMAGING Diagnoses Abnormal findings on diagnostic imaging of liver and biliary tract Procedures MRI PANC/ROSE MARIE WO/W IVCON MRI ABDOMEN W/O & W/CONTRAST MATERIAL Theron Harris MD [address] [place] [address] Mr Imaging [place] [address] Referral IDStatusReasonStart DateExpiration DateVisits RequestedVisits [id number] Auto-Generated Referral /[id number] / ProceduresReferred By ContactReferred To ContactMR IMAGING Diagnoses IPMN (intraductal papillary mucinous neoplasm) Procedures MRI 3D POST PROCESSING 3D RENDERING W/INTERP&POSTPROC DIFF WORK STATION Theron Harris MD [address] [place] [address] Mr Imaging [place] [address] Referral IDStatusReasonStart DateExpiration DateVisits RequestedVisits [id number] Review Auto-Generated Referral 1Referral IDStatusReasonStart DateExpiration DateVisits RequestedVisits [id number] Review Auto-Generated Referral Chief Complaint and Reason for Visit Chief Complaint ^ med refill /shot/anxiety Hyperglycemia diabetes mellitus due to underlying condition with E08.9 Chief Complaint ^ Hyperglycemia r19.7 sent by Chief Complaint ^ Hyperglycemia r19.[address] chester Chief Complaint ^ r19.[address] chester L leg warm to the touch, painReason for VisitCellulitis Chief Complaint ^ L leg warm to the touch, pain E08.9Reason for VisitCellulitis Chief Complaint ^ Screening Chief Complaint ^ I10 E03.9 E55.9 Hyperglycemia Chief Complaint ^ 6 Month Follow Up i10 e87.6 e03.9 e55.9 Cough//Runny Nose Lingering Cough X 2 Weeks Chief Complaint ^ i10 e87.6 e03.9 e55.9 Cough//Runny Nose Lingering Cough X 2 Weeks Amb Documentation METERReason for VisitBMI 32.0-32.9,adult Dietary counseling and surveillance Hyperlipidemia Hypertension Type 2 diabetes mellitus Chief Complaint ^ Amb Documentation METER weak and tiredReason for VisitBMI 32.0-32.9,adult Dietary counseling and surveillance Hyperlipidemia Hypertension Type 2 diabetes mellitus Acute kidney injury Partial small bowel obstruction Chief Complaint ^ weak and tired weak and tired meterReason for VisitAcute kidney injury Hypertension Metabolic acidosis Partial small bowel obstruction Ulcerative colitis BMI 32.0-32.9,adult Dietary counseling and surveillance Hyperlipidemia Hypertension Type 2 diabetes mellitus Chief Complaint ^ weak and tired weak and tired meter 6 monthReason for VisitAcute kidney injury Hypertension Metabolic acidosis Partial small bowel obstruction Ulcerative colitis BMI 30.0-30.9,adult Dietary counseling and surveillance Hyperlipidemia Hypertension Type 2 diabetes mellitus Acquired hypothyroidism Screening for breast cancer Chief Complaint ^ weak and tired weak and tired meter 6 monthReason for VisitAcute kidney injury Hypertension Metabolic acidosis Partial small bowel obstruction Ulcerative colitis BMI 30.0-30.9,adult Dietary counseling and surveillance Hyperlipidemia Hypertension Type 2 diabetes mellitus Acquired hypothyroidism Essential (primary) hypertension Screening for breast cancer Chief Complaint ^ weak and tired weak and tired meter 6 month e03.9 Z12.31Reason for VisitAcute kidney injury Hypertension Metabolic acidosis Partial small bowel obstruction Ulcerative colitis BMI 30.0-30.9,adult Dietary counseling and surveillance Hyperlipidemia Hypertension Type 2 diabetes mellitus Acquired hypothyroidism Essential (primary) hypertension Screening for breast cancer Chief Complaint ^ meter 6 month e03.9 Z12.31 E78.5 E11.9Reason for VisitBMI 30.0-30.9,adult Dietary counseling and surveillance Hyperlipidemia Hypertension Type 2 diabetes mellitus Acquired hypothyroidism Essential (primary) hypertension Screening for breast cancer Chief Complaint ^ e03.9 Z12.31 E78.5 E11.9 L30.0 L43.8 Z79.899 Chief Complaint Admit Date ^ January 28, 2004 5:44 pm 6 month f/u / meter June 09, 2024 7:49am 6 month June 10, 2024 4:39pm Demetri White July 07, 2024 9:47am L40.0 Z79.899 August 29, 2024 7:31am Reason for Visit Admit Date BMI 33.0-33.9,adult June 09, 2024 7:49am Dietary counseling and surveillance Eleanor ross 2023 7:49am Hyperlipidemia June 09, 2024 7:49am Hypertension June 09, 2024 7:49am Type 2 diabetes mellitus June 09, 2024 7:49am Acquired hypothyroidism June 10, 2 024 4:39pm Essential (primary) hypertension Novem r 2023 4:39pm Type 2 diabetes mellitus with hyperglyce geno July 07, 2024 9:47am Chief Complaint Admit Date ^ January 28, 2004 5:44 pm L40.0 Z79.899 August 29, 2024 7:31am 3 month-METER November 03, 2024 7:5 5am Reason for Visit Admit Date BMI 33.0-33.9,adult November 03, 2024 7:5 5am Dietary counseling and surveillance Apri l 2024 7:55am Hyperlipidemia November 03, 2024 7:5 5am Hypertension November 03, 2024 7:5 5am Type 2 diabetes mellitus November 03 7:55am Reason for Visit Admit Date BMI 34.0-34.9,adult November 03, 2024 7:5 5am Dietary counseling and surveillance Apri l 2024 7:55am Hyperlipidemia November 03, 2024 7:5 5am Hypertension November 03, 2024 7:5 5am Type 2 diabetes mellitus November 03 7:55am Chief Complaint Admit Date ^ January 28, 2004 5:44 pm 3 month-METER November 03, 2024 7:5 5am E11.65 E78.5 E53.8 November 13, 2024 9:44am E11.65 November 14, 2024 9:05am stomach pain December 03, 2024 1:59p m Amb Documentation December 04, 2024 9:40a m ER F/U-6 month, potassium ??? December 09, 2024 4:27pm Reason for Visit Admit Date BMI 34.0-34.9,adult November 03, 2024 7:5 5am Dietary counseling and surveillance Apri l 2024 7:55am Hyperlipidemia November 03, 2024 7:5 5am Hypertension November 03, 2024 7:5 5am Type 2 diabetes mellitus November 03 7:55am Elevated LDL cholesterol level December 09, 2024 4:27pm penitentiary (current) use of insulin November 142024 4:27pm Type 2 diabetes mellitus with other circ ulatory complications December 09, 2024 4:27pm Chief Complaint Admit Date ^ January 28, 2004 5:44 pm stomach pain December 03, 2024 1:59p m Amb Documentation December 04, 2024 9:40a m ER F/U-6 month, potassium ??? December 09, 2024 4:27pm 3 month February 16, 2025 9:3 4am Reason for Visit Admit Date Elevated LDL cholesterol level December 09, 2024 4:27pm Hypomagnesemia December 09, 2024 4:27p m penitentiary (current) use of insulin November 142024 4:27pm Type 2 diabetes mellitus with other circ ulatory complications December 09, 2024 4:27pm BMI 34.0-34.9,adult February 16, 2025 9:3 4am Dietary counseling and surveillance Augu st 2024 9:34am Hyperlipidemia February 16, 2025 9:3 4am Hypertension February 16, 2025 9:3 4am Type 2 diabetes mellitus February 16 9:34am Family History No Family History Records Found Relationship Condition Age at Onset Recorded Date/T sherice Not Specified Atrial fibrillation Unknown Transient ischemic attackUnknownfatherDiabetes mellitusUnknownHeart disease Unknown Relationship Condition Age at Onset Recorded Date/T sherice Not Specified Atrial fibrillation Unknown Transient ischemic attackUnknownfatherDiabetes mellitusUnknownHeart disease UnknownbrotherDeceasedUnknowndaughterDiabetes mellitusUnknownfatherHeart disease UnknownDiabetes mellitusUnknownDeceasedUnknownNot SpecifiedDeceasedUnknown Relationship Condition Age at Onset Recorded Date/T sherice mother Atrial fibrillation Unknown Transient ischemic attackUnknownfatherDiabetes mellitusUnknownHeart disease UnknownbrotherDeceasedUnknowndaughterDiabetes mellitusUnknownfatherHeart disease UnknownDiabetes mellitusUnknownDeceasedUnknownmotherDeceasedUnknown Summary Purpose Medications Administered Section Medication OrderMAR ActionAction DateDoseRateSite NaCl 0.9% iv infusion 30 mL/hr, INTRAVENOUS, CONTINUOUS, Starting on Sun03/27/23 at 1330, Until Sun03/28/23 at 0414, Preprocedure New Bag/Syringe/Qqbeqq0003/27/2023 1:30 PM EDT30 mL/hr30 mL/hr sodium phosphate-sodium bisphosphate 133 mL enema (FLEET) 133 mL, RECTAL, ONCE, 1 dose, On Sun03/27/23 at 1330, FOR RECTAL USE, Preprocedure Given03/27/2023 1:30 PM FGR658 mL Additional Source Comments Source Comments (unrecognize d section and content) In the event this informatio n is protected by the Federal Confidentiality of Alcohol and Drug Abuse Patient Records regulations: The Federal rules restrict any use of the information to criminally investigate or prosecute any alcohol or drug abuse patient.[facility] CenterIn the event this information is protected by the Federal Confidentiality of Alcohol and Drug Abuse Patient Records regulations: The Federal rules restrict any use of the information to criminally investigate or prosecute any alcohol or drug abuse patient.[facility] CenterIn the event this information is protected by the Federal Confidentiality of Alcohol and Drug Abuse Patient Records regulations: The Federal rules restrict any use of the information to criminally investigate or prosecute any alcohol or drug abuse patient.[facility] CenterIn the event this information is protected by the Federal Confidentiality of Alcohol and Drug Abuse Patient Records regulations: The Federal rules restrict any use of the information to criminally investigate or prosecute any alcohol or drug abuse patient.[facility] CenterIn the event this information is protected by the Federal Confidentiality of Alcohol and Drug Abuse Patient Records regulations: The Federal rules restrict any use of the information to criminally investigate or prosecute any alcohol or drug abuse patient.[facility] CenterIn the event this information is protected by the Federal Confidentiality of Alcohol and Drug Abuse Patient Records regulations: The Federal rules restrict any use of the information to criminally investigate or prosecute any alcohol or drug abuse patient.[facility] CenterIn the event this information is protected by the Federal Confidentiality of Alcohol and Drug Abuse Patient Records regulations: The Federal rules restrict any use of the information to criminally investigate or prosecute any alcohol or drug abuse patient.[facility] CenterIn the event this information is protected by the Federal Confidentiality of Alcohol and Drug Abuse Patient Records regulations: The Federal rules restrict any use of the information to criminally investigate or prosecute any alcohol or drug abuse patient.[facility] CenterIn the event this information is protected by the Federal Confidentiality of Alcohol and Drug Abuse Patient Records regulations: The Federal rules restrict any use of the information to criminally investigate or prosecute any alcohol or drug abuse patient.[facility] CenterIn the event this information is protected by the Federal Confidentiality of Alcohol and Drug Abuse Patient Records regulations: The Federal rules restrict any use of the information to criminally investigate or prosecute any alcohol or drug abuse patient.[facility] CenterIn the event this information is protected by the Federal Confidentiality of Alcohol and Drug Abuse Patient Records regulations: The Federal rules restrict any use of the information to criminally investigate or prosecute any alcohol or drug abuse patient.[facility] CenterIn the event this information is protected by the Federal Confidentiality of Alcohol and Drug Abuse Patient Records regulations: The Federal rules restrict any use of the information to criminally investigate or prosecute any alcohol or drug abuse patient.[facility] CenterIn the event this information is protected by the Federal Confidentiality of Alcohol and Drug Abuse Patient Records regulations: The Federal rules restrict any use of the information to criminally investigate or prosecute any alcohol or drug abuse patient.[facility] CenterIn the event this information is protected by the Federal Confidentiality of Alcohol and Drug Abuse Patient Records regulations: The Federal rules restrict any use of the information to criminally investigate or prosecute any alcohol or drug abuse patient.[facility] CenterIn the event this information is protected by the Federal Confidentiality of Alcohol and Drug Abuse Patient Records regulations: The Federal rules restrict any use of the information to criminally investigate or prosecute any alcohol or drug abuse patient.[facility] CenterIn the event this information is protected by the Federal Confidentiality of Alcohol and Drug Abuse Patient Records regulations: The Federal rules restrict any use of the information to criminally investigate or prosecute any alcohol or drug abuse patient.[facility] CenterIn the event this information is protected by the Federal Confidentiality of Alcohol and Drug Abuse Patient Records regulations: The Federal rules restrict any use of the information to criminally investigate or prosecute any alcohol or drug abuse patient.[facility] CenterIn the event this information is protected by the Federal Confidentiality of Alcohol and Drug Abuse Patient Records regulations: The Federal rules restrict any use of the information to criminally investigate or prosecute any alcohol or drug abuse patient.[facility] CenterIn the event this information is protected by the Federal Confidentiality of Alcohol and Drug Abuse Patient Records regulations: The Federal rules restrict any use of the information to criminally investigate or prosecute any alcohol or drug abuse patient.[facility] CenterIn the event this information is protected by the Federal Confidentiality of Alcohol and Drug Abuse Patient Records regulations: The Federal rules restrict any use of the information to criminally investigate or prosecute any alcohol or drug abuse patient.[facility] CenterIn the event this information is protected by the Federal Confidentiality of Alcohol and Drug Abuse Patient Records regulations: The Federal rules restrict any use of the information to criminally investigate or prosecute any alcohol or drug abuse patient.[facility] CenterIn the event this information is protected by the Federal Confidentiality of Alcohol and Drug Abuse Patient Records regulations: The Federal rules restrict any use of the information to criminally investigate or prosecute any alcohol or drug abuse patient.[facility] CenterIn the event this information is protected by the Federal Confidentiality of Alcohol and Drug Abuse Patient Records regulations: The Federal rules restrict any use of the information to criminally investigate or prosecute any alcohol or drug abuse patient.[facility] CenterIn the event this information is protected by the Federal Confidentiality of Alcohol and Drug Abuse Patient Records regulations: The Federal rules restrict any use of the information to criminally investigate or prosecute any alcohol or drug abuse patient.[facility] CenterIn the event this information is protected by the Federal Confidentiality of Alcohol and Drug Abuse Patient Records regulations: The Federal rules restrict any use of the information to criminally investigate or prosecute any alcohol or drug abuse patient.[facility] CenterIn the event this information is protected by the Federal Confidentiality of Alcohol and Drug Abuse Patient Records regulations: The Federal rules restrict any use of the information to criminally investigate or prosecute any alcohol or drug abuse patient.[facility] CenterIn the event this information is protected by the Federal Confidentiality of Alcohol and Drug Abuse Patient Records regulations: The Federal rules restrict any use of the information to criminally investigate or prosecute any alcohol or drug abuse patient.[facility] CenterIn the event this information is protected by the Federal Confidentiality of Alcohol and Drug Abuse Patient Records regulations: The Federal rules restrict any use of the information to criminally investigate or prosecute any alcohol or drug abuse patient.[facility] CenterIn the event this information is protected by the Federal Confidentiality of Alcohol and Drug Abuse Patient Records regulations: The Federal rules restrict any use of the information to criminally investigate or prosecute any alcohol or drug abuse patient.[facility] CenterIn the event this information is protected by the Federal Confidentiality of Alcohol and Drug Abuse Patient Records regulations: The Federal rules restrict any use of the information to criminally investigate or prosecute any alcohol or drug abuse patient.[facility] CenterIn the event this information is protected by the Federal Confidentiality of Alcohol and Drug Abuse Patient Records regulations: The Federal rules restrict any use of the information to criminally investigate or prosecute any alcohol or drug abuse patient.[facility] CenterIn the event this information is protected by the Federal Confidentiality of Alcohol and Drug Abuse Patient Records regulations: The Federal rules restrict any use of the information to criminally investigate or prosecute any alcohol or drug abuse patient.[facility] CenterIn the event this information is protected by the Federal Confidentiality of Alcohol and Drug Abuse Patient Records regulations: The Federal rules restrict any use of the information to criminally investigate or prosecute any alcohol or drug abuse patient.[facility] CenterIn the event this information is protected by the Federal Confidentiality of Alcohol and Drug Abuse Patient Records regulations: The Federal rules restrict any use of the information to criminally investigate or prosecute any alcohol or drug abuse patient.[facility] CenterIn the event this information is protected by the Federal Confidentiality of Alcohol and Drug Abuse Patient Records regulations: The Federal rules restrict any use of the information to criminally investigate or prosecute any alcohol or drug abuse patient.[facility] CenterIn the event this information is protected by the Federal Confidentiality of Alcohol and Drug Abuse Patient Records regulations: The Federal rules restrict any use of the information to criminally investigate or prosecute any alcohol or drug abuse patient.[facility] CenterIn the event this information is protected by the Federal Confidentiality of Alcohol and Drug Abuse Patient Records regulations: The Federal rules restrict any use of the information to criminally investigate or prosecute any alcohol or drug abuse patient.[facility] CenterIn the event this information is protected by the Federal Confidentiality of Alcohol and Drug Abuse Patient Records regulations: The Federal rules restrict any use of the information to criminally investigate or prosecute any alcohol or drug abuse patient.[facility] CenterIn the event this information is protected by the Federal Confidentiality of Alcohol and Drug Abuse Patient Records regulations: The Federal rules restrict any use of the information to criminally investigate or prosecute any alcohol or drug abuse patient.[facility] CenterIn the event this information is protected by the Federal Confidentiality of Alcohol and Drug Abuse Patient Records regulations: The Federal rules restrict any use of the information to criminally investigate or prosecute any alcohol or drug abuse patient.[facility] CenterIn the event this information is protected by the Federal Confidentiality of Alcohol and Drug Abuse Patient Records regulations: The Federal rules restrict any use of the information to criminally investigate or prosecute any alcohol or drug abuse patient.[facility] CenterIn the event this information is protected by the Federal Confidentiality of Alcohol and Drug Abuse Patient Records regulations: The Federal rules restrict any use of the information to criminally investigate or prosecute any alcohol or drug abuse patient.[facility] CenterIn the event this information is protected by the Federal Confidentiality of Alcohol and Drug Abuse Patient Records regulations: The Federal rules restrict any use of the information to criminally investigate or prosecute any alcohol or drug abuse patient.[facility] CenterIn the event this information is protected by the Federal Confidentiality of Alcohol and Drug Abuse Patient Records regulations: The Federal rules restrict any use of the information to criminally investigate or prosecute any alcohol or drug abuse patient.[facility] CenterIn the event this information is protected by the Federal Confidentiality of Alcohol and Drug Abuse Patient Records regulations: The Federal rules restrict any use of the information to criminally investigate or prosecute any alcohol or drug abuse patient.[facility] CenterIn the event this information is protected by the Federal Confidentiality of Alcohol and Drug Abuse Patient Records regulations: The Federal rules restrict any use of the information to criminally investigate or prosecute any alcohol or drug abuse patient.[facility] CenterIn the event this information is protected by the Federal Confidentiality of Alcohol and Drug Abuse Patient Records regulations: The Federal rules restrict any use of the information to criminally investigate or prosecute any alcohol or drug abuse patient.[facility] CenterIn the event this information is protected by the Federal Confidentiality of Alcohol and Drug Abuse Patient Records regulations: The Federal rules restrict any use of the information to criminally investigate or prosecute any alcohol or drug abuse patient.[facility] CenterIn the event this information is protected by the Federal Confidentiality of Alcohol and Drug Abuse Patient Records regulations: The Federal rules restrict any use of the information to criminally investigate or prosecute any alcohol or drug abuse patient.[facility] CenterIn the event this information is protected by the Federal Confidentiality of Alcohol and Drug Abuse Patient Records regulations: The Federal rules restrict any use of the information to criminally investigate or prosecute any alcohol or drug abuse patient.[facility] CenterIn the event this information is protected by the Federal Confidentiality of Alcohol and Drug Abuse Patient Records regulations: The Federal rules restrict any use of the information to criminally investigate or prosecute any alcohol or drug abuse patient.[facility] CenterIn the event this information is protected by the Federal Confidentiality of Alcohol and Drug Abuse Patient Records regulations: The Federal rules restrict any use of the information to criminally investigate or prosecute any alcohol or drug abuse patient.[facility] CenterIn the event this information is protected by the Federal Confidentiality of Alcohol and Drug Abuse Patient Records regulations: The Federal rules restrict any use of the information to criminally investigate or prosecute any alcohol or drug abuse patient.[facility] CenterIn the event this information is protected by the Federal Confidentiality of Alcohol and Drug Abuse Patient Records regulations: The Federal rules restrict any use of the information to criminally investigate or prosecute any alcohol or drug abuse patient.[facility] CenterIn the event this information is protected by the Federal Confidentiality of Alcohol and Drug Abuse Patient Records regulations: The Federal rules restrict any use of the information to criminally investigate or prosecute any alcohol or drug abuse patient.[facility] CenterIn the event this information is protected by the Federal Confidentiality of Alcohol and Drug Abuse Patient Records regulations: The Federal rules restrict any use of the information to criminally investigate or prosecute any alcohol or drug abuse patient.[facility] CenterIn the event this information is protected by the Federal Confidentiality of Alcohol and Drug Abuse Patient Records regulations: The Federal rules restrict any use of the information to criminally investigate or prosecute any alcohol or drug abuse patient.[facility] CenterIn the event this information is protected by the Federal Confidentiality of Alcohol and Drug Abuse Patient Records regulations: The Federal rules restrict any use of the information to criminally investigate or prosecute any alcohol or drug abuse patient.[facility] CenterIn the event this information is protected by the Federal Confidentiality of Alcohol and Drug Abuse Patient Records regulations: The Federal rules restrict any use of the information to criminally investigate or prosecute any alcohol or drug abuse patient.[facility] CenterIn the event this information is protected by the Federal Confidentiality of Alcohol and Drug Abuse Patient Records regulations: The Federal rules restrict any use of the information to criminally investigate or prosecute any alcohol or drug abuse patient.[facility] CenterIn the event this information is protected by the Federal Confidentiality of Alcohol and Drug Abuse Patient Records regulations: The Federal rules restrict any use of the information to criminally investigate or prosecute any alcohol or drug abuse patient.[facility] CenterIn the event this information is protected by the Federal Confidentiality of Alcohol and Drug Abuse Patient Records regulations: The Federal rules restrict any use of the information to criminally investigate or prosecute any alcohol or drug abuse patient.[facility] CenterIn the event this information is protected by the Federal Confidentiality of Alcohol and Drug Abuse Patient Records regulations: The Federal rules restrict any use of the information to criminally investigate or prosecute any alcohol or drug abuse patient.[facility] CenterIn the event this information is protected by the Federal Confidentiality of Alcohol and Drug Abuse Patient Records regulations: The Federal rules restrict any use of the information to criminally investigate or prosecute any alcohol or drug abuse patient.[facility] CenterIn the event this information is protected by the Federal Confidentiality of Alcohol and Drug Abuse Patient Records regulations: The Federal rules restrict any use of the information to criminally investigate or prosecute any alcohol or drug abuse patient.[facility] CenterIn the event this information is protected by the Federal Confidentiality of Alcohol and Drug Abuse Patient Records regulations: The Federal rules restrict any use of the information to criminally investigate or prosecute any alcohol or drug abuse patient.[facility] CenterIn the event this information is protected by the Federal Confidentiality of Alcohol and Drug Abuse Patient Records regulations: The Federal rules restrict any use of the information to criminally investigate or prosecute any alcohol or drug abuse patient.[facility] CenterIn the event this information is protected by the Federal Confidentiality of Alcohol and Drug Abuse Patient Records regulations: The Federal rules restrict any use of the information to criminally investigate or prosecute any alcohol or drug abuse patient.[facility] CenterIn the event this information is protected by the Federal Confidentiality of Alcohol and Drug Abuse Patient Records regulations: The Federal rules restrict any use of the information to criminally investigate or prosecute any alcohol or drug abuse patient.[facility] CenterIn the event this information is protected by the Federal Confidentiality of Alcohol and Drug Abuse Patient Records regulations: The Federal rules restrict any use of the information to criminally investigate or prosecute any alcohol or drug abuse patient.[facility] CenterIn the event this information is protected by the Federal Confidentiality of Alcohol and Drug Abuse Patient Records regulations: The Federal rules restrict any use of the information to criminally investigate or prosecute any alcohol or drug abuse patient.[facility] CenterIn the event this information is protected by the Federal Confidentiality of Alcohol and Drug Abuse Patient Records regulations: The Federal rules restrict any use of the information to criminally investigate or prosecute any alcohol or drug abuse patient.[facility] CenterIn the event this information is protected by the Federal Confidentiality of Alcohol and Drug Abuse Patient Records regulations: The Federal rules restrict any use of the information to criminally investigate or prosecute any alcohol or drug abuse patient.[facility] CenterIn the event this information is protected by the Federal Confidentiality of Alcohol and Drug Abuse Patient Records regulations: The Federal rules restrict any use of the information to criminally investigate or prosecute any alcohol or drug abuse patient.[facility] CenterIn the event this information is protected by the Federal Confidentiality of Alcohol and Drug Abuse Patient Records regulations: The Federal rules restrict any use of the information to criminally investigate or prosecute any alcohol or drug abuse patient.[facility] CenterIn the event this information is protected by the Federal Confidentiality of Alcohol and Drug Abuse Patient Records regulations: The Federal rules restrict any use of the information to criminally investigate or prosecute any alcohol or drug abuse patient.[facility] CenterIn the event this information is protected by the Federal Confidentiality of Alcohol and Drug Abuse Patient Records regulations: The Federal rules restrict any use of the information to criminally investigate or prosecute any alcohol or drug abuse patient.[facility] CenterIn the event this information is protected by the Federal Confidentiality of Alcohol and Drug Abuse Patient Records regulations: The Federal rules restrict any use of the information to criminally investigate or prosecute any alcohol or drug abuse patient.[facility] CenterIn the event this information is protected by the Federal Confidentiality of Alcohol and Drug Abuse Patient Records regulations: The Federal rules restrict any use of the information to criminally investigate or prosecute any alcohol or drug abuse patient.[facility] CenterIn the event this information is protected by the Federal Confidentiality of Alcohol and Drug Abuse Patient Records regulations: The Federal rules restrict any use of the information to criminally investigate or prosecute any alcohol or drug abuse patient.[facility] CenterIn the event this information is protected by the Federal Confidentiality of Alcohol and Drug Abuse Patient Records regulations: The Federal rules restrict any use of the information to criminally investigate or prosecute any alcohol or drug abuse patient.[facility] CenterIn the event this information is protected by the Federal Confidentiality of Alcohol and Drug Abuse Patient Records regulations: The Federal rules restrict any use of the information to criminally investigate or prosecute any alcohol or drug abuse patient.[facility] CenterIn the event this information is protected by the Federal Confidentiality of Alcohol and Drug Abuse Patient Records regulations: The Federal rules restrict any use of the information to criminally investigate or prosecute any alcohol or drug abuse patient.[facility] CenterIn the event this information is protected by the Federal Confidentiality of Alcohol and Drug Abuse Patient Records regulations: The Federal rules restrict any use of the information to criminally investigate or prosecute any alcohol or drug abuse patient.[facility] CenterIn the event this information is protected by the Federal Confidentiality of Alcohol and Drug Abuse Patient Records regulations: The Federal rules restrict any use of the information to criminally investigate or prosecute any alcohol or drug abuse patient.[facility] CenterIn the event this information is protected by the Federal Confidentiality of Alcohol and Drug Abuse Patient Records regulations: The Federal rules restrict any use of the information to criminally investigate or prosecute any alcohol or drug abuse patient.[facility] CenterIn the event this information is protected by the Federal Confidentiality of Alcohol and Drug Abuse Patient Records regulations: The Federal rules restrict any use of the information to criminally investigate or prosecute any alcohol or drug abuse patient.[facility] CenterIn the event this information is protected by the Federal Confidentiality of Alcohol and Drug Abuse Patient Records regulations: The Federal rules restrict any use of the information to criminally investigate or prosecute any alcohol or drug abuse patient.[facility] CenterIn the event this information is protected by the Federal Confidentiality of Alcohol and Drug Abuse Patient Records regulations: The Federal rules restrict any use of the information to criminally investigate or prosecute any alcohol or drug abuse patient.[facility] CenterIn the event this information is protected by the Federal Confidentiality of Alcohol and Drug Abuse Patient Records regulations: The Federal rules restrict any use of the information to criminally investigate or prosecute any alcohol or drug abuse patient.[facility] CenterIn the event this information is protected by the Federal Confidentiality of Alcohol and Drug Abuse Patient Records regulations: The Federal rules restrict any use of the information to criminally investigate or prosecute any alcohol or drug abuse patient.[facility] CenterIn the event this information is protected by the Federal Confidentiality of Alcohol and Drug Abuse Patient Records regulations: The Federal rules restrict any use of the information to criminally investigate or prosecute any alcohol or drug abuse patient.[facility] CenterIn the event this information is protected by the Federal Confidentiality of Alcohol and Drug Abuse Patient Records regulations: The Federal rules restrict any use of the information to criminally investigate or prosecute any alcohol or drug abuse patient.[facility] CenterIn the event this information is protected by the Federal Confidentiality of Alcohol and Drug Abuse Patient Records regulations: The Federal rules restrict any use of the information to criminally investigate or prosecute any alcohol or drug abuse patient.[facility] CenterIn the event this information is protected by the Federal Confidentiality of Alcohol and Drug Abuse Patient Records regulations: The Federal rules restrict any use of the information to criminally investigate or prosecute any alcohol or drug abuse patient.[facility] CenterIn the event this information is protected by the Federal Confidentiality of Alcohol and Drug Abuse Patient Records regulations: The Federal rules restrict any use of the information to criminally investigate or prosecute any alcohol or drug abuse patient.[facility] CenterIn the event this information is protected by the Federal Confidentiality of Alcohol and Drug Abuse Patient Records regulations: The Federal rules restrict any use of the information to criminally investigate or prosecute any alcohol or drug abuse patient.[facility] CenterIn the event this information is protected by the Federal Confidentiality of Alcohol and Drug Abuse Patient Records regulations: The Federal rules restrict any use of the information to criminally investigate or prosecute any alcohol or drug abuse patient.[facility] CenterIn the event this information is protected by the Federal Confidentiality of Alcohol and Drug Abuse Patient Records regulations: The Federal rules restrict any use of the information to criminally investigate or prosecute any alcohol or drug abuse patient.[facility] CenterIn the event this information is protected by the Federal Confidentiality of Alcohol and Drug Abuse Patient Records regulations: The Federal rules restrict any use of the information to criminally investigate or prosecute any alcohol or drug abuse patient.[facility] CenterIn the event this information is protected by the Federal Confidentiality of Alcohol and Drug Abuse Patient Records regulations: The Federal rules restrict any use of the information to criminally investigate or prosecute any alcohol or drug abuse patient.[facility] CenterIn the event this information is protected by the Federal Confidentiality of Alcohol and Drug Abuse Patient Records regulations: The Federal rules restrict any use of the information to criminally investigate or prosecute any alcohol or drug abuse patient.[facility] CenterIn the event this information is protected by the Federal Confidentiality of Alcohol and Drug Abuse Patient Records regulations: The Federal rules restrict any use of the information to criminally investigate or prosecute any alcohol or drug abuse patient.[facility] CenterIn the event this information is protected by the Federal Confidentiality of Alcohol and Drug Abuse Patient Records regulations: The Federal rules restrict any use of the information to criminally investigate or prosecute any alcohol or drug abuse patient.[facility] Reason for Visit (unrecogniz ed section and content) ReasonCommentsInsurance AuthorizationReasonCommentsAppointmentReasonComments Radio GI Main [id number] / ProceduresReferred By ContactReferred To ContactXR IMAGING Diagnoses IPMN (intraductal papillary mucinous neoplasm) Procedures XR UPPER GI ROUTINE DOUBLE CONTRAST/AIR RADIOLOGIC EXAM UPR GI TRC DOUBLE CONTRAST STUDY Theron Harris MD [address] [place] [id number] Xr Imaging Referral IDStatusReasonStart DateExpiration DateVisits RequestedVisits [id number] Auto-Generated Referral /[id number]/06/2022ROBOTIC DISTAL PANC/SPLENECTOMY 2PREOP WITH DR. DaleCommentsFuture Appointmentpatient want to use self-check covid test that she has at homeReasonCommentsReturning Patient's CallCOVID TEST BEFORE SURGERYReasonCommentsAnesthesia Consultpreop evaluation SpecialtyDiagnoses / ProceduresReferred By ContactReferred To Contact Diagnoses Preoperative examination 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) Procedures IN PERSON CONSULT TO PACC Theron Harris MD [address] [place] [address] Referral IDStatusShaynaasonStart DateExpiration DateVisits RequestedVisits [id number] Not Required PCP Requested Referral /[id number]-Oc TeachingReasonCommentsPre-Op ExamReason CommentsResearch F/UReasonCommentsHome CareReasonCommentsReturning Patient's CallLOVENOX SCRIPTReasonCommentsReturning Patient's CalllovenoxReasonComments Follow Up Phone CallPost Discharge F/U attempt made. No answer.ReasonComments Returning Patient's CallInsulin and LovenoxReasonCommentsMedication Question ReasonCommentsReturning Patient's CallSpoke with patient's home pharmacy ([facility]). Left voicemail for pharmacist giving verbal order for Novolog as previous Humalog prescription was not covered by patient's insurance.ReasonComments Returning Patient's Callrefill on insulinReasonCommentsPatient UpdatefmlaReason CommentsEstablished PatientReasonCommentsResultsReasonCommentsDiarrheaReason Onset DateCommentsOpened In Error2ReasonCommentsRefill RequestReason CommentsCritical ResultsReasonCommentsPouchitisReasonCommentsCare Coordination Insurance AuthorizationReasonCommentsPatient UpdateReasonCommentsRadiology MRI pancreas/biliary protocol abdomenSpecialtyDiagnoses / ProceduresReferred By ContactReferred To Contact IMAGING Diagnoses Abnormal findings on diagnostic imaging of liver and biliary tract Procedures MRI PANC/ROSE MARIE WO/W IVCON MRI ABDOMEN W/O & W/CONTRAST MATERIAL Theron Harris MD [address] [place] [address] Mr Imaging Referral IDStatusReason[employer] DateExpiration DateVisits RequestedVisits [id number] Auto-Generated Referral /[id number] PatientReasonCommentsCare CoordinationReasonOnset XxjtVqkpggozPhjbbgq15/26/2023ReasonCommentsConsult SpecialtyDiagnoses / ProceduresReferred By ContactReferred To St[facility] Incisional hernia, without obstruction or gangrene Procedures CONSULT TO GENERAL SURGERY OFFICE/OUTPATIENT [facility] 60-74 MINUTES Theron Harris MD [address] [place] [address] Referral IDStatusShaynaasonBeale Afb DateExpiration DateVisits RequestedVisits [id number] PCP Requested Referral /[id number] year follow upReasonComments ResultsReasonCommentsCrohnsEstablished PatientSpecialtyDiagnoses / Procedures Referred By ContactReferred To ContactMR IMAGING Diagnoses Pancreatic cyst Procedures MRI PANC/ROSE MARIE WO/W IVCON MRI,ABDOMEN,W&WO CONTRS Theron Harris MD [address] [address] Mr Imaging [place] [address] Referral IDStatusReasonStart DateExpiration DateVisits RequestedVisits [id number]/17/202112/[id number]nfgj 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ReasonCommentsIBD Follow UpReasonCommentsPost OpSpecialtyDiagnoses / ProceduresReferred By ContactReferred To ContactPR[facility] INPATIENT Diagnoses [facility] Procedures [facility] [address] [place] [address] Referral IDStatusReAfluentaBeale Afb DateExpiration DateVisits RequestedVisits [id number] MRISpecialtyDiagnoses / Procedures Referred By ContactReferred To Contact IMAGING Diagnoses Abnormal findings on diagnostic imaging of liver and biliary tract Procedures MRI PANC/ROSE MARIE WO/W IVCON MRI ABDOMEN W/O & W/CONTRAST MATERIAL Theron Harris MD [address] [address] [facility] [place] [address] Referral IDStatusReAfluentaBeale [employer]b DateExpiration DateVisits RequestedVisits [id number] Auto-Generated Referral [id number] PatientFollow upReasonComments Established Patient Follow-UpReasonCommentsReminder CallEducation Of Patient/familyLM for 12/27/23 apptReasonCommentsIBD Follow UpReasonComments ResultsAppointmentReasonCommentsMed Change RequestReasonCommentsPatient Question ReasonCommentsNew PrescriptionReasonCommentsFollow UpReasonCommentsMedication ProblemReasonCommentsEstablished PatientCrohnsReasonCommentsMedication Problem Entyvio not coveredReasonCommentsRadiology MRISpecialtyDiagnoses / Procedures Referred By ContactReferred To Contact IMAGING Diagnoses Abnormal findings on diagnostic imaging of liver and biliary tract Procedures MRI PANC/ROSE MARIE WO/W IVCON MRI ABDOMEN W/O & W/CONTRAST MATERIAL Theron Harris MD [address] [place] [address] Phone: tel: fax: [place] [address] Referral IDStatusReasonStart DateExpiration DateVisits RequestedVisits [id number] Auto-Generated Referral [id number] PatientReasonCommentsCare Coordinator - OtherReasonCommentsAnemiaThrombocytosis6 month follow up Care Teams (unrecognized sec tion and content) Team Status: Active Member Role Status Dates Renaldo Barton , Primary Care Provider Active Team Status: Active Member Role Status Dates Placido Brody Attending Provider Active Team Status: Inactive Member Role Status Dates Renaldo Barton , Primary Care Provider Active Dedra Mcallister APRNAtmanuel ProviderActive Team Status: Active Member Role Status Dates Renaldo Barton DO Primary Care Provider Active Michael Holder ProviderActiveFirDarrin Zavaleta Provider, Attending ProviderActive Team Status: Inactive Member Role Status Dates Renaldo Barton , Primary Care Provider Active ALONSO PlasenciaP-CAttending ProviderActive Team Status: Inactive Member Role Status Dates Renaldo Barton , Primary Care Provider Active Garrison Zaraterjeannette ProviderActiveTeam MemberRelationshipSpecialty Start DateEnd [facility] [place] Jignesh [facility] PCP - General10Team MemberRelationshipSpecialtyStart DateEnd [facility] Jignesh [facility] PCP - General/10Team MemberRelationshipSpecialtyStart DateEnd [facility] Jignesh [facility] PCP - General/10Team MemberRelationshipSpecialtyStart DateEnd [facility] PCP - General9/9/10Team MemberRelationshipSpecialtyStart DateEnd Date House, Jignesh [facility] PCP - General9/9/10Team MemberRelationshipSpecialtyStart DateEnd Date House, Jign[facility] PCP - General9/9/10Team MemberRelationshipSpecialtyStart DateEnd Date House, Jign[facility] PCP - General9/9/10Team MemberRelationshipSpecialtyStart DateEnd Date House, Jign[facility] PCP - General9/9/10Team MemberRelationshipSpecialtyStart DateEnd Date House, Jignesh [facility] PCP - General9/9/10Team MemberRelationshipSpecialtyStart DateEnd Date House, Jign[facility] PCP - General9/9/10Team MemberRelationshipSpecialtyStart DateEnd Date House, Jign[facility] PCP - General9/9/10Team MemberRelationshipSpecialtyStart DateEnd Date House, Jignesh [facility] PCP - General9/9/10Team MemberRelationshipSpecialtyStart DateEnd Date House, Jign[facility] PCP - General9/9/10Team MemberRelationshipSpecialtyStart DateEnd Date House, Jign[facility] PCP - General9/9/10Team MemberRelationshipSpecialtyStart DateEnd Date [place], Jignesh Con[facility] Sr[facility] PCP - General9/9/10Team MemberRelationshipSpecialtyStart DateEnd Date [place], Jignesh Conner Sr[facility] PCP - General9/9/10Team MemberRelationshipSpecialtyStart DateEnd Date [place], Jignesh Conner Sr[facility] PCP - General9/9/10Team MemberRelationshipSpecialtyStart DateEnd Date [place], Jignesh Conner Sr. PCP - General9/9/10Team MemberRelationshipSpecialtyStart DateEnd Date [place], Jignesh Conner Sr. PCP - General9/9/10Team MemberRelationshipSpecialtyStart DateEnd Date [place], Jignesh Conner Sr. PCP - General9/9/10Team MemberRelationshipSpecialtyStart DateEnd Date [place], Jignesh Conner Sr. PCP - General9/9/10Team MemberRelationshipSpecialtyStart DateEnd Date Renaldo Barton, DO [address] [facility] [place] [address] PCP - GeneralFamily Practice02/16/22Team MemberRelationshipSpecialtyStart DateEnd Date Renaldo Barton, DO [address] [facility] [place] [address] PCP - GeneralFamily Practice02/16/22 Team Status: Inactive Member Role Status Dates Jignesh Amos , Primary Care Provider Active Momo Posadas ProviderActive Team Status: Active Member Role Status Dates Jignesh Trinidad , Primary Care Provider, Attending Dori doe Active Team Status: Inactive Member Role Status Dates Jignesh Trinidad , Primary Care Provider Active Jose David Whittaker ProviderActive Team Status: Active Member Role Status Dates Jignesh Amos , Primary Care Provider Active Team MemberRelationshipSpecialtyStart DateEnd Date Renaldo Barton, DO [address] [facility] [address] PCP - Generalmily Medicine02/16/22Team MemberRelationshipSpecialtyStart DateEnd Date Renaldo Barton, DO [address] [facility] [address] PCP - Generalmily Medicine02/16/22Team MemberRelationshipSpecialtyStart DateEnd Date Renaldo Barton, DO [address] [facility] [place] [place] [address] PCP - [facility] Medicine02/16/22Team MemberRelationshipSpecialtyStart DateEnd Date Renaldo Barton, DO [address] [facility] [place] [address] PCP - Generalmily Medicine02/16/22Team MemberRelationshipSpecialtyStart DateEnd Date Renaldo Barton, DO [address] [facility] [place] [address] [facility] - [facility]02/16/22Team MemberRelationshipSpecialtyStart DateEnd Date Renaldo Barton, DO [address] [facility] [place] [address] PCP - GeneralFamily Medicine02/16/22Team MemberRelationshipSpecialtyStart DateEnd Date Renaldo Barton, DO [address] [facility] [place] [address] PCP - [facility]02/16/22Team MemberRelationshipSpecialtyStart DateEnd Date Renaldo Braton, DO [address] [facility] [place] [address] PCP - [facility]02/16/22Team MemberRelationshipSpecialtyStart DateEnd Date Renaldo Barton, DO [address] [facility] [place] [address] PCP - [facility]02/16/22 Team Status: Inactive Member Role Status Dates Renaldo Barton , DO Primary Care Provider Active Michael Holder ProviderActiveFiras Senoemio , MDAdmit Provider ActiveGavino Pantoja MDAttending ProviderActive Team Status: Inactive Member Role Status Dates Renaldo Barton , DO Primary Care Provider Active Ludy Arnett , APRNAttending ProviderActiveTeam MemberRelationshipSpecialty Start DateEnd Date Renaldo Barton, DO [address] [facility] [place] [address] PCP - [facility]02/16/22Team MemberRelationshipSpecialtyStart DateEnd Date Renaldo aBrton, DO [address] [facility] [place] [address] PCP - [facility]02/16/22Team MemberRelationshipSpecialtyStart DateEnd Date Renaldo Barton, DO [address] [facility] [place] [address] PCP - GeneralFamily Medicine02/16/22Team MemberRelationshipSpecialtyStart DateEnd Date Renaldo Barton, DO [address] [facility] [place] [address] PCP - Generalmily Medicine02/16/22 Team Status: Inactive Member Role Status Dates Renaldo Barton , DO Primary Care Provider Active Alethea Vickers MDAttending ProviderActive Team Status: Inactive Member Role Status Dates Renaldo Barton , Primary Care Provider, Attending Provider Active Team MemberRelationshipSpecialtyStart DateEnd Date Renaldo Barton, DO PCP - Generalmily Medicine02/16/22Team MemberRelationshipSpecialtyStart DateEnd Date Renaldo Barton, [facility]22Team MemberRelationshipSpecialtyStart DateEnd Date Renaldo Barton, DO [address] [facility] [place] [address] PCP - [facility] Medicine02/16/22Team MemberRelationshipSpecialtyStart DateEnd Date Jignesh Trinidad Sr., DO PCP - General/9/Team MemberRelationshipSpecialtyStart DateEnd Date Renaldo Barton, DO [address] [facility] [address] PCP - [facility] Medicine02/16/22Team MemberRelationshipSpecialtyStart DateEnd Date Renaldo Barton, DO [address] [facility] [place] [address] [facility]/16/22 Team Status: Active Member Role Status Dates Jignesh Trinidad DO Primary Care Provider Active Momo Posadas ProviderActiveTeam MemberRelationshipSpecialty Start DateEnd Date Renaldo Barton DO [address] [place] [address] [facility] - [facility]02/16/22 Team Status: Active Member Role Status Dates Placido Brody Attending Provider Active St art: January 28, 2004 Team Status: Inactive Member Role Status Dates Renaldo Barton DO Attending Provider Active S tart: June 05, 2023 End: June 05, 2023 Team Status: Inactive Member Role Status Dates Renaldo Barton DO Primary Care Provid er, Attending Provider Active Start: June 19, 2023 End: June 19, 2023 Team Status: Inactive Member Role Status Dates CHRIS HoodC Attending Provider Active S tart: June 27, 2023 End: June 27, 2023 Team Status: Inactive Member Role Status Dates Christie Andrew APRN Attending Provider Active Sta rt: July 14, 2023 End: July 14, 2023 Team Status: Active Member Role Status Dates Renaldo Barton DO Primary Care Provider Active Start: September 03, 2023 Rossy Dickinson CMAAttelaine ProviderActiveStart: September 03, 2023 Team Status: Inactive Member Role Status Dates Renaldo Barton DO Primary Care Provider Active Start: September 05, 2023 End: September 05, 2023Momo Posadas ProviderActiveStart: September 05, 2023 End: September 05, 2023Team MemberRelationshipSpecialtyStart DateEnd Date Renaldo Barton DO [address] [place] [address] [facility] - [facility]02/16/22Team MemberRelationshipSpecialtyStart DateEnd Date Renaldo Barton DO [address] [place] [address] [facility] - [facility]02/16/22 Team Status: Active Member Role Status Dates Renaldo Barton DO Primary Care Provid er, Attending Provider Active Start: October 11, 2023 Team Status: Active Member Role Status Dates Renaldo Barton DO Primary Care Provid er, Attending Provider Active Start: October 12, 2023 Team Status: Active Member Role Status Dates Renaldo Barton DO Primary Care Provider Active Start: October 24, 2023 Jose David Reardon ProviderActiveStart: October 24, 2023 Pascual Fraireit Provider, Attending ProviderActiveStart: October 24, 2023 Team MemberRelationshipSpecialtyStart DateEnd Date Renaldo Barton DO [address] [place] [address] [facility] - [facility]02/16/22Team MemberRelationshipSpecialtyStart DateEnd Date Renaldo Barton DO [address] [place] [address] [facility] - [facility]02/16/22Team MemberRelationshipSpecialtyStart DateEnd Date Renaldo Barton DO [address] [facility] [place] [address] [facility]02/16/22 Team Status: Inactive Member Role Status Dates Renaldo Barton DO Primary Care Provider Active Start: October 24, 2023 End: October 25, 2023Jose David Reardon ProviderActiveStart: October 24, 2023 End: October 25, 2023Pascual Fraireit ProviderActiveStart: October 24, 2023 End: October 25, 2023Enoch Rees DOAttending ProviderActiveStart: October 24, 2023 End: October 25, 2023 Team Status: Active Member Role Status Dates Renaldo Barton DO Primary Care Provider Active Start: October 24, 2023 End: October 25, 2023Jose David Reardon ProviderActiveStart: October 24, 2023 End: October 25, 2023Miclola Woodruff DOAdmit Provider, Attending Provider, Other ProviderActiveStart: October 24, 2023 End: October 25, 2023 Team Status: Active Member Role Status Dates Renaldo Barton DO Primary Care Provid er, Attending Provider Active Start: October 25, 2023 Team Status: Active Member Role Status Dates Renaldo Barton DO Primary Care Provid er, Attending Provider Active Start: October 26, 2023 Team Status: Active Member Role Status Dates Renaldo Barton DO Primary Care Provid er, Attending Provider Active Start: October 27, 2023 Team Status: Active Member Role Status Dates Renaldo Barton DO Primary Care Provider Active Start: November 01, 2023 Ana Enriquez MDAttelaine ProviderActiveStart: November 01, 2023 Team Status: Inactive Member Role Status Dates Renaldo Barton DO Primary Care Provider Active Start: December 03, 2023 End: December 03, 2023TonMomo Avlarez ProviderActiveStart: December 03, 2023 End: December 03, 2023Team MemberRelationshipSpecialtyStart DateEnd Date Renaldo Barton DO [address] [place] [address] [facility] - [facility]02/16/22 Team Status: Inactive Member Role Status Dates Renaldo Barton DO Primary Care Provid er, Attending Provider Active Start: December 05, 2023 End: December 05, 2023Team MemberRelationshipSpecialtyStart DateEnd Date Renaldo Barton DO [address] [place] [address] [facility] - [facility]02/16/22Team MemberRelationshipSpecialtyStart DateEnd Date Renaldo Barton, DO [address] [place] [address] PCP - [facility]02/16/22 Team Status: Inactive Member Role Status Dates Renaldo Barton DO Primary Care Provid er, Attending Provider Active Start: December 27, 2023 End: December 27, 2023Team MemberRelationshipSpecialtyStart DateEnd Date Renaldo Barton, DO [address] [place] [address] PCP - [facility]02/16/22 Team Status: Inactive Member Role Status Dates Renaldo Barton DO Primary Care Provid er, Attending Provider Active Start: January 05, 2024 End: January 05, 2024 Team Status: Active Member Role Status Dates Renaldo Barton DO Primary Care Provider Active Start: January 24, 2024 Ana Enriquez , MDAttending ProviderActiveStart: January 24, 2024 Team Status: Inactive Member Role Status Dates Renaldo Barton DO Primary Care Provider Active Start: January 29, 2024 End: January 29, 2024Tondra Sean Arnett , APRNAttending ProviderActiveStart: January 29, 2024 End: January 29, 2024Team MemberRelationshipSpecialtyStart DateEnd Date Renaldo Barton, DO [address] [place] [address] PCP - [facility]02/16/22Team MemberRelationshipSpecialtyStart DateEnd Date Renaldo Barton, DO [address] [place] [address] [facility]02/16/22 Team Status: Inactive Member Role Status Dates Renaldo Barton DO Primary Care Provider Active Start: March 06, 2024 End: March 06, 2024Alethea Vickers MDAttelaine ProviderActiveStart: March 06, 2024 End: March 06, 2024Team MemberRelationshipSpecialtyStart DateEnd Date Renaldo Barton, DO [address] [place] [address] [facility]02/16/22Team MemberRelationshipSpecialtyStart DateEnd Date Renaldo Barton, DO [address] [place] [address] PCP - [facility] Medicine02/16/22Team MemberRelationshipSpecialtyStart DateEnd Date Renaldo Barton, DO [address] [place] [address] PCP - [facility]mi Medicine02/16/22Team MemberRelationshipSpecialtyStart DateEnd Date Renaldo Barton, DO [address] [facility] [place] [address] PCP - Generalmi Medicine02/16/22Team MemberRelationshipSpecialtyStart DateEnd Date Renaldo Barton, DO [address] [facility] [place] [address] PCP - [facility] Medicine02/16/22 Team Status: Inactive Member Role Status Dates Renaldo Barton DO Primary Care Provider Active Start: June 09, 2024 End: June 09, 2024Ludy Arnett , Momo ProviderActiveStart: June 09, 2024 End: June 09, 2024 Team Status: Inactive Member Role Status Dates Renaldo Barton DO Primary Care Provid er, Attending Provider Active Start: June 10, 2024 End: June 10, 2024 Team Status: Inactive Member Role Status Dates Renaldo Barton DO Primary Care Provider Active Start: July 07, 2024 End: July 07, 2024Chan Briggs , RNAttending ProviderActiveStart: July 07, 2024 End: July 07, 2024Ludy Arnett , APRNActiveStart: July 07, 2024 End: July 07, 2024 Team Status: Inactive Member Role Status Dates Renaldo Barton DO Primary Care Provider Active Start: August 29, 2024 End: August 29, 2024Alethea Vickers , MDAttending ProviderActiveStart: August 29, 2024 End: August 29, 2024 Team Status: Active Member Role Status Dates Renaldo Barton DO Primary Care Provider Active Start: August 29, 2024 Ana Enriquez , MDAttending ProviderActiveStart: August 29, 2024 Team MemberRelationshipSpecialtyStart DateEnd Date Renaldo Barton, DO [address] [place] [address] [facility] - [facility] Medicine02/16/22Team MemberRelationshipSpecialtyStart DateEnd Date Renaldo Barton, DO [address] [place] [address] PCP - [facility] Medicine02/16/22Team MemberRelationshipSpecialtyStart DateEnd Date Renaldo Barton, DO [address] [place] [address] [facility] Medicine02/16/22Team MemberRelationshipSpecialtyStart DateEnd Date Renaldo Barton, DO [address] [place] [address] PCP - [facility]02/16/22Team MemberRelationshipSpecialtyStart DateEnd Date Renaldo Barton DO [address] [place] [address] PCP - [facility]02/16/22 Team Status: Active Member Role Status Dates Renaldo Barton DO Primary Care Provid er, Attending Provider Active Start: September 18, 2024 Team Status: Inactive Member Role Status Dates Renaldo Barton DO Primary Care Provider Active Start: November 03, 2024 End: November 03, 2024Tona Sean Mapus , APRNAttending ProviderActiveStart: November 03, 2024 End: November 03, 2024 Team Status: Inactive Member Role Status Dates Renaldo Barton DO Primary Care Provider Active Start: November 13, 2024 End: November 13, 2024Tona Sean Mapus , APRNAttending ProviderActiveStart: November 13, 2024 End: November 13, 2024 Team Status: Inactive Member Role Status Dates Renaldo Barton DO Primary Care Provider Active Start: November 14, 2024 End: November 14, 2024Tona Sean Mapus , APRNAttending ProviderActiveStart: November 14, 2024 End: November 14, 2024Team MemberRelationshipSpecialtyStart DateEnd Date Renaldo Barton DO [address] [place] [address] PCP - [facility]02/16/22Team MemberRelationshipSpecialtyStart DateEnd Date Renaldo Barton DO [address] [place] [address] PCP - [facility]02/16/22 Team Status: Inactive Member Role Status Dates Renaldo Barton DO Primary Care Provider Active Start: December 03, 2024 End: December 03Michael Andrade ProviderActiveStart: December 03, 2024 End: December 03, 2024 Team Status: Active Member Role Status Dates Renaldo Barton DO Primary Care Provider Active Start: December 04, 2024 Jennifer Mcknight , LPNAtmanuel ProviderActiveStart: December 04, 2024 Team Status: Inactive Member Role Status Dates Renaldo Barton DO Primary Care Provid er, Attending Provider Active Start: December 09, 2024 End: December 09, 2024Team MemberRelationshipSpecialtyStart DateEnd Date Renaldo Barton DO [address] [place] [address] PCP - [facility] Medicine02/16/22Team MemberRelationshipSpecialtyStart DateEnd Date Renaldo Barton DO [address] [place] [address] PCP - [facility] Medicine02/16/22Team MemberRelationshipSpecialtyStart DateEnd Date Renaldo Barton DO [address] [place] [address] PCP - [facility] Medicine02/16/22 Team Status: Inactive Member Role Status Dates Renaldo Barton DO Primary Care Provider Active Start: December 09, 2024 End: December 09, 2024Renaldo Barton DOAttending ProviderActiveStart: December 09, 2024 End: December 09, 2024 Team Status: Inactive Member Role Status Dates Renaldo Barton DO Primary Care Provider Active Start: February 16, 2025 End: February 16, 2025Ludy Arnett , Momo ProviderActiveStart: February 16, 2025 End: February 16, 2025Team MemberRelationshipSpecialtyStart DateEnd Date Renaldo Barton, DO [address] [facility] [address] [place] [address] PCP - [facility]02/16/22Team MemberRelationshipSpecialtyStart DateEnd Date Renaldo Barton, DO [address] [facility] [place] [address] PCP - [facility]02/16/22 Goals (unrecognized section and content) Goals may be documented in a n alternate section INFORMATION SOURCE (unrecogn ized section and content) DATE CREATED AUTHOR 10/09/2022 [facility] DATE CREATED AUTHOR AUTHOR'S ORGANIZ ATION 12/28/2024 [facility] DATE CREATED AUTHOR AUTHOR'S ORGANIZ ATION 05/19/2025 [facility] FOR RECORDS PERTAINING TO PATIENTS WHO ARE OR HAVE BEEN ENROLLED IN A CHEMICAL DEPENDENCY/SUBSTANCEABUSE PROGRAM, SOME INFORMATION MAY BE OMITTED. This clinical summary was aggregated from multiple sources. Caution should be exercised in using it in the provision of clinical care. This summary normalizes information from multiple sources, and as a consequence, information in this document may materially change the coding, format and clinical context of patient data. In addition, data may be omitted in some cases. CLINICAL DECISIONS SHOULD BE BASED ON THE PRIMARY CLINICAL RECORDS. [facility] [employer] provides no warranty or guarantee of the accuracy or completeness of information in this document.
--- NOTE | 2025-05-21 13:50 | PM.WCHP ---
Wound Care H&P: HPI History of Present Illness Narrative: Traci is a 64-year-old female with history of type 2 diabetes who presents for routine nail care. Her last hemoglobin A1c was 5.8. She complains that her toenails are painful when they need trimmed and have been painful for the past 1-2 weeks. Exam Narrative: Exam Narrative: Dermatologic: No ulcerations noted. Toenails 1 through 10 are thickened, mycotic, and dystrophic. They are tender to touch. No evidence of paronychia. Webspaces are clean and dry. Skin is thin, shiny, and atrophic. Neurologic: Achilles deep tendon reflexes are absent bilaterally, vibratory sensation is intact on the left but absent on the right. Protective sensation intact at 5/5 areas tested with the monofilament on each foot. Vascular: 1/4 dorsal pedis pulses bilaterally, 1/4 PT pulses bilaterally. Digital and lower leg hair is absent bilaterally. Lower extremity edema is noted bilaterally. Skin is diffusely dry. 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 Flatfoot deformity noted on the right with less valgus positioning. No pain with palpation either foot. Assessment and Plan Assessment and Plan (1) Tinea unguium: (2) Type 2 diabetes mellitus with diabetic neuropathy, unspecified: (3) Diminished pulses in lower extremity: (4) Disorder of nail due to another disorder: Plan Routine nail care performed. Follow-up in 3 months. Acute Procedures Podiatry Nail Debridement Class B Findings Advanced trophic changes as evidenced by any three of the following: decreased hair growth, nail changes (thickening) and skin texture (thin or shiny) Class C Findings Claudication: No Temperature changes: No Edema: Yes Nail debridement paresthesia (abnormal spontaneous sensations in the feet): No Burning: No Qualifies If: Qualifiers If:: A patient qualifies for nail debridement if they have: 1 class A finding (Q7) 2 class B findings (Q8) OR 1 class B & 2 class C findings in addition to a primary condition (Q9) Nail Procedure Nail Procedure Time out: Yes Nail procedure: other (Toenail debridement) Number of affected nails: 10 Location (toes): left and right Procedure successful: Yes Patient tolerated procedure: well and no complications Additional comments: Toenails 1 through 10 were sharply debrided with nail nippers without incident.
== END 2025-05-21 12:59 | disposition home or self-care (01) ==
PROVIDERS: Visit Provider Physician Assistant
DX: B35.1 Tinea unguium (principal); E11.40 Type 2 diabetes mellitus with diabetic neuropathy, unspecified; R09.89 Other specified symptoms and signs involving the circulatory and respiratory systems; L60.8 Other nail disorders
CPT/HCPCS: 11721